=== PATIENT | female | born 1990 | race Caucasian/White ===

== ENCOUNTER 2023-10-19 15:29 | Outpatient (CLI) | payer OTHER, SELFPAY ==
[2023-10-19 14:40] LABS: Abs Immature Grans 0.01 10^3/uL (0.0-0.06); Absolute Basophil Count 0.03 10^3/uL (0.0-0.2); Absolute Eosinophil Count 0.01 10^3/uL (0.0-0.7); Absolute Lymphocyte Count 1.54 10^3/uL (1.2-3.4); Absolute Monocyte Count 0.47 10^3/uL (0.1-0.8); Basophils % 0.5 %; Eosinophils % 0.2 %; HCT 42.2 % (36.0-46.0); HGB 15.2 g/dL (11.2-15.7); Immature Grans % 0.2 %; Lymphocytes % 26.7 %; MCH 34.4 pg (27.0-33.0); MCV 96 fL (80-95); MPV 9.3 fL (8.0-11.0); Monocytes % 8.2 %; Neutrophils % 64.2 %; Platelet Count 249 10^3/uL (130-400); RBC 4.42 10^6/uL (3.93-5.22); RDW 11.2 % (11.7-14.6); RDW-SD 39.5 fL; WBC 5.76 10^3/uL (4.4-10.8)
[2023-10-19 14:49] LABS: Prothrombin Time 10.3 sec (9.1-11.1)
[2023-10-19 14:58] LABS: ALT 36 U/L (14-59); AST 22 U/L (15-37); Albumin 4.1 g/dL (3.4-5.0); Alkaline Phosphatase 79 U/L (46-116); Anion Gap 5.5 mmol/L (3-11); BUN 9 mg/dL (7-18); Bilirubin, Total 0.66 mg/dL (0.2-1.0); CO2 29.5 mmol/L (21.0-32.0); CREATININE 0.7 mg/dL (0.55-1.02); Calcium 9.3 mg/dL (8.5-10.1); Chloride 101 mmol/L (98-107); Estimated GFR 116.31 (mL/min/1.73m2); Glucose 97 mg/dL (74-106); Potassium 4.2 mmol/L (3.5-5.1); Sodium 136 mmol/L (136-145); Total Protein 7.5 g/dL (6.4-8.2)
--- OUTSIDE RECORDS SUMMARY | 2023-10-19 15:32 | XMS_ITS | Encounter Summary ---
Author Organization [facility] Address [address] [place] [address] Care Team Providers Care Mobile Lab Technician Name Role Phone Galilea Mars TOOL SETTER Primary Care Provider [phone] Encounter Details Date Type Department Care Team (Late st Contact Info) Description 10/07/2023 Orders Only [facility] - [place] [address] [place] [address] Galilea Mars, TOOL SETTER [address] [place] [address] Pre-op exam (Primary Dx); Lumbosacral radiculopathy at L4; Lumbosacral radiculopathy at L5 Social History Tobacco Use Types Packs/Day Years Used Date Smoking Tobacco: Never Smokeless Tobacco: Never Alcohol Use Standard Drinks/Week Comments Yes 0 (1 standard drink = 0.6 oz pur e alcohol) socially Humiliation, Afraid, Rape, and Kick questionnair e Answer Date Recorded Within the last year, have y ou been afraid of your partner or ex-partner? No 07/02/2020 Within the last year, have y ou been humiliated or emotionally abused in other ways by your partner or ex-partner? No Within the last year, have y ou been kicked, hit, slapped, or otherwise physically hurt by your partner or ex-partner? No 07/02/2020 Within the last year, have y ou been raped or forced to have any kind of sexual activity by your partner or ex-partner? No 07/02/2020 AUDIT-C Answer Date Recorded Frequency of Alcohol Consumption 2-3 times a wee k 06/19/2020 Average Number of Drinks 1 or 2 021 Frequency of Binge Drinking Less than monthly Overall Financial Resource Strain (CARDIA) Answe r Date Recorded How hard is it for you to pa y for the very basics like food, housing, medical care, and heating? Not hard at all 06/21/2022 PHQ-2 Answer Date Recorded PHQ-2 SUBTOTAL 2 06/21/2022 Exercise Vital Sign Answer Date Recorde d On average, how many days pe r week do you engage in moderate to strenuous exercise (like a brisk walk)? 7 days 07/02/2020 On average, how many minutes do you engage in exercise at this level? 60 min 07/02/2020 Hunger Vital Sign Answer Date Recorded Within the past 12 months, y ou worried that your food would run out before you got the money to buy more. Never true 06/22/19 23 Within the past 12 months, t he food you bought just didn't last and you didn't have money to get more. Never true 06/21/2022 PRAPARE - Transportation Answer Date Re corded In the past 12 months, has l ack of transportation kept you from medical appointments or from getting medications? No 11/2022 In the past 12 months, has l ack of transportation kept you from meetings, work, or from getting things needed for daily living? No 06/21/2022 Housing Stability Vital Sign Answer Kameron e Recorded Unable to Pay for Housing in the Last Year Not o n file 06/21/2022 In the last 12 months, how many places have you lived? 1 06/21/2022 In the last 12 months, was t here a time when you did not have a steady place to sleep or slept in a penitentiary (including now)? No 06/21/2022 Interpersonal Safety Answer Date Record ed How often does anyone, inclu ding family, hit, punch or physically hurt you? Never 06/21/2022 How often does anyone, inclu ding family, insult, scream, curse or threaten to hurt you? Never 06/21/2022 Education Answer Date Recorded What is the highest level of school you have completed or the highest degree you have received? Master's degree (e.g., MA, MS, Joanne, MEd, WARNING COORDINATION METEOROLOGIST, LILA) 06/19/2020 Sex and Gender Information Value Date Recorded Sex Assigned at Female 10/08/2022 13:26 EDT Gender Identity Female 07/29/2021 16:35 EDT Sexual Orientation Straight 10/08/2022 13 :26 EDT documented as of this encounter Functional Status Functional Status Response Date of Assess ment Because of a physical, menta l, or emotional condition, does this person have difficulty doing errands alone such as visiting a doctor's office or shopping? No 08/03/2023 Cognitive Status Response Date of Assessm ent Because of a physical, menta l, or emotional condition, does this person have serious difficulty concentrating, remembering, or making decisions? No 08/03/2023 documented as of this encounter Plan of Treatment Upcoming Encounters Date Type Department Care Team (Late st Contact Info) Description 10/22/2023 13:25 EDT Hospital Encounter [facility] [place] [address] [place] [address] [phone] Walker Pride MD [address] [place] [address] [address] [place] [phone] 10/22/2023 13:25 EDT - 10/22/2023 17:00 EDT Surgery [facility] OR [address] [place] [address] [phone] Walker Pride MD [address] [place] [phone] Left L34 decompression, redo left L45 decompression [22284 (CPT??)] 11/22/2023 10:00 EDT Post-op Visit [facility] Neurosurgery - [address] [place] [address] [place] [address] Madiha Hurtado NP [address] [facility], [address] [place] [phone] Scheduled Orders Name Type Priority Associated Diagnoses Orde r Schedule COMPLETE BLOOD COUNT Lab Routine Pre-op exam Lumbosacral radiculopathy at L4 Lumbosacral radiculopathy at L5 Expected: 10/07/2023 (Approximate), Expires: 01/05/2024 BASIC METABOLIC PANEL (BMP) Lab Routine Pre-op exam Lumbosacral radiculopathy at L4 Lumbosacral radiculopathy at L5 Expected: 10/07/2023 (Approximate), Expires: 01/05/2024 Scheduled Procedures Name Priority Associated Diagnoses Date/Ti me LAMINECTOMY, SPINE, LUMBAR, 1 LEVEL, WITH FORAMINOTOMY OR FACETECTOMY Lumbar radiculopathy 10/22/2023 13:25 EDT LAMINECTOMY, SPINE, WITH FACETECTOMY AND FORAMINOTOMY, ADDITIONAL LEVEL FOLLOWING INITIAL LEVEL Lumbar radiculopathy 10/22/2023 13:25 EDT documented as of this encounter Visit Diagnoses Diagnosis Lumbar radiculopathy- Primary Thoracic or lumbosacral neuritis or radiculitis, unspecified Pre-op exam- Primary Preoperative examination, unspecified Lumbosacral radiculopathy at L4 Thoracic or lumbosacral neuritis or radiculitis, unspecified Lumbosacral radiculopathy at L5 Thoracic or lumbosacral neuritis or radiculitis, unspecified Lumbar radiculopathy Thoracic or lumbosacral neuritis or radiculitis, unspecified documented in this encounter Care Teams Mobile Lab Technician Relationship Specialty Start Date End Date Galilea Mars NP [address] [place] [phone] PCP - General 09/16/21 documented as of this encounter
--- OUTSIDE RECORDS SUMMARY | 2023-10-19 15:32 | XMS_ITS | Encounter Summary ---
Author Organization [facility] Address [address] [place] [address] Care Team Providers Care Core Loader Name Role Phone Galilea Mars TECHNICAL EXPERT Primary Care Provider [phone] Reason for Visit * Reason Comments Pre-op Exam Back surgery L4-L5 w ith Dr Pride on 10/22/23 Encounter Details Date Type Department Care Team (Latest Contact Info) Description 10/04/2023 15:00 EDT Office Visit [facility] Adult Primary Care - [place] [address] [place] [address] Galilea Mars, TECHNICAL EXPERT [address] [place] [address] Pre-op exam (Primary Dx); Lumbosacral [...] place to sleep or slept in a skilled nursing (including now)? No 06/21/2022 Interpersonal Safety Answer Date Record ed How often does anyone, jason sanchez family, hit, punch or physically hurt you? Never 06/21/2022 How often does anyone, jason sanchez family, insult, scream, curse or threaten to hurt you? Never 06/21/2022 Education Answer Date Recorded What is the highest level of school you have completed or the highest degree you have received? Master's degree (e.g., MA, MS, Joanne, MEd, FACILITY MAINTENANCE HELPER, LILA) 06/19/2020 Sex and Gender Information Value Date Recorded Sex Assigned at Female 10/08/2022 13:26 EDT Gender Identity Female 07/29/2021 16:35 EDT Sexual Orientation Straight 10/08/2022 13 :26 EDT documented as of this encounter Last Filed Vital Signs Vital Sign Reading Time Taken Comments Blood Pressure 116/68 10/04/2023 1502 EDT Pulse 80 10/04/2023 1502 EDT Temperature 35.9 ??C (96.7 ??F) 10/04/2023 1502 EDT Respiratory Rate 10 10/04/2023 1502 EDT Oxygen Saturation - - Inhaled Oxygen Concentration - - Weight 74.7 kg (164 lb 9.6 oz) 10/04/2023 1502 E DT Height 163.9 cm (5' 4.53) 10/04/2023 1502 EDT Body Mass Index 27.79 10/04/2023 1502 EDT documented in this encounter Functional Status Functional Status Response [...] No 08/03/2023 documented as of this encounter Patient Instructions * Patient Instructions* Galilea Mars, TECHNICAL EXPERT - 10/04/2023 15:00 EDT GENERAL PREOP INSTRUCTIONS: Proceed with surgery as planned. No food or liquids the morning of surgery. Call surgeon if develops respiratory illness, fever, or other illness. Take the following medications the morning of surgery with a sip of water - sertraline and gabapentin. Vitamins - hold 1 week prior to procedure. documented in this encounter Progress Notes * Galilea Mars NP - 10/04/2023 1500 EDT Primary Care Preoperative Note Planned Procedure: Left L34 decompression, redo left L45 decompression Surgeon: Dr Pride Planned Procedure Date: 10/22/23 Jonas Lange is a 33 y.o. female presenting for pre-op. HPI The patient is scheduled for an L34 decompression surgery. The patient has been experiencing persistent foot drop and leg weakness, which has not significantly changed in function or intensity. The patient's previous MRI was open, but the surgeon requested a closed MRI, which delayed the process. The patient reports she was prescribed oxycodone following her last surgery, she reports that she didn't like that drop in mood from it and is requesting other options. Revised Cardiac Risk Index (RCRI): Class I Cardiovascular / pulmonary risk factors: none Prior history of anesthetic complications: no Prior history of bleeding problems: no Prior history of DVT/PE: no Family history of anesthetic complications, bleeding problems or DVT/PE: no. Support post-op: Functional capacity: (ACC/AHA recommends no further testing for patients with = 4 METs - equivalentof walking up 2 flights of stairs or a hill) This patient has a capacity of = 4 Mets - Yes Advanced Directive: Recommend completing. Relevant ROS: Review of Systems Constitutional: Negative for chills, fever, malaise/fatigue and weight loss. Respiratory: Negative for cough, shortness of breath and wheezing. Cardiovascular: Negative for chest pain, palpitations and leg swelling. Gastrointestinal: Negative for abdominal pain, blood in stool, constipation, diarrhea, heartburn, nausea and vomiting. Skin: Negative for rash. Neurological: Negative for dizziness, tremors, weakness and headaches. Current Outpatient Medications on File Prior to Visit Medication Sig Dispense Refill acetaminophen (TYLENOL) 500 mg tablet Take 2 Tablets by mouth every 6 hours as needed for Pain. cyanocobalamin (VITAMIN B-12) 500 mcg tablet Take 2 Tablets by mouth daily. gabapentin (NEURONTIN) 300 mg capsule Take 1 Capsule by mouth 2 times daily. 180 Capsule 1 levonorgestreL (MIRENA) 20 mcg/24 hours (8 yrs) 52 mg IUD 1 Each by intrauterine route Once. 2016 Multivitamins with Minerals tablet tablet Take 1 Tablet by mouth daily. sertraline (ZOLOFT) 100 mg tablet Take 1 Tablet by mouth daily. 90 Tablet 3 No current facility-administered medications on file prior to visit. Social History Tobacco Use Smoking status: Never Smokeless tobacco: Never Substance Use Topics Alcohol use: Yes Comment: socially Drug use: No No Known Allergies Past Medical History: Diagnosis Date Activity, other involving cardiorespiratory exercise 09-03-21 prior to the injury the pt was running 2 miles a day Back pain 08-27-21 left-sided low back pain with radiculopathy. Bradycardia 08-27-21- pt staes she has a lower HR than most Exercise involving housework 08-27-21 tries is Migraine with aura, not intractable Past Surgical History: Procedure Laterality Date LUMBAR DISCECTOMY WISDOM TOOTH EXTRACTION Data reviewed this visit: problem list/past medical history, current medications, allergies, and EKG from today Objective BP 116/68 (BP Cuff Location: Left arm, BP Patient Position: Sitting, BP Cuff Sizes: Adult, regular) Pulse 80 Temp 35.9 ??C (96.7 ??F) (Tympanic) Resp 10 Ht 163.9 cm (64.53) Wt 74.7 kg (164lb 9.6 oz) BMI 27.79 kg/m?? General: Alert, cooperative, no acute distress. Appears non-toxic. Well developed, hydrated and nourished. Appears stated age. Head: Normocephalic, atraumatic. Eyes: Conjunctivae are clear without exudates or hemorrhage. Sclera is non- icteric. EOMs intact, PERRL. Eyelids are normal in appearance without swelling or lesions. Mouth: No oral lesions. Normal dentition. Mallampati 1 Neck: Supple, symmetrical, trachea midline, no adenopathy, thyroid: no enlargement, tenderness or nodules. Lungs: No signs of respiratory distress. Lung sounds are clear in all lobes bilaterally without rales, ronchi, or wheezes. Heart: Heart rate and rhythm are normal. No murmurs, gallops, or rubs are auscultated. S1 and S2 are heard and are of normal intensity. Abdomen: Abdomen is soft and non-tender without distention. Bowel sounds are normoactive. No masses, hepatomegaly, or splenomegaly are noted. Extremities: Extremities atraumatic, no edema. Musculoskeletal: No joint swelling, effusion or redness. Moves all four extremities - left sided foot drop. Antalgic gait. Pulses: 2+ and symmetric all extremities. Skin: Warm, dry, intact. Skin color, texture, turgor normal. No rashes or suspicious lesions. Neurologic: The patient is awake, alert and oriented X 3. CNII-XII intact. No tremors. Psychiatric: Appropriate mood and affect. Cooperative. Assessment & Plan Sarah Lange is a 33 y.o. female who is at low risk for cardiac complications from the schedule medium risk surgery. No contraindications to planned surgery Preop Orders and Medication Management EKG performed today: NSR GENERAL PREOP INSTRUCTIONS: Proceed with surgery as planned. No food or liquids the morning of surgery. Call surgeon if develops respiratory illness, fever, or other illness. Take the following medications the morning of surgery with a sip of water - sertraline and gabapentin. Vitamins - hold 1 week prior to procedure. Pain Management: Previous negative experience with Oxycodone post-surgery. -Discussed INTELLIGENCE AGENT depressant nature of opioids. This low mood may occur with others in the same drug class. -Discuss alternative pain management options with the surgical team, including Tramadol or Hydrocodone. -Consider Tylenol for pain management after the initial post-operative period. Sarah was seen today for pre-op exam. Diagnoses and all orders for this visit: Pre-op exam Lumbosacral radiculopathy at L4 Lumbosacral radiculopathy at L5 - EKG 12-LEAD; Future - COMPREHENSIVE METABOLIC PANEL (CMP); Future - PROTIME; Future - COMPLETE BLOOD COUNT AND DIFFERENTIAL; Future I discussed with Sarah Lange the use of this audio recording tool to create a clinical note. I explained the benefits of the technology, such as time savings and a better patient experience. I explained that the recording will be confidential and converted into a written note which I will review and edit as needed before it is saved in the medical record. The patient expressed an understanding of the use of this technology for clinical documentation and agreed to allow its use for this encounter. documented in this encounter Plan of Treatment Upcoming Encounters Date Type Department Care Team (Late st Contact Info) Description 10/22/2023 13:25 EDT Hospital Encounter [facility] OR [address] [place] [address] [phone] Walker Pride MD [address] [place] [phone] 10/22/2023 13:25 EDT - 10/22/2023 17:00 EDT Surgery [facility] OR [address] [place] [address] [phone] Walker Pride MD [address] [place] [phone] Left L34 decompression, redo left L45 decompression [[id number] (CPT??)] 11/22/2023 10:00 EDT Post-op Visit [facility] Neurosurgery - [address] [phone] Madiha Hurtado NP [address] [place] [phone] Scheduled Orders Name Type Priority Associated Diagnoses Orde r Schedule COMPREHENSIVE METABOLIC PANEL (CMP) Lab Routine Pre-op exam Lumbosacral radiculopathy at L4 Lumbosacral radiculopathy at L5 Expected: 10/04/2023 (Approximate), Expires: 01/02/2024 PROTIME Lab Routine Pre-op exam Lumbosacral radiculopathy at L4 Lumbosacral radiculopathy at L5 Expected: 10/04/2023 (Approximate), Expires: 01/02/2024 COMPLETE BLOOD COUNT AND DIFFERENTIAL Lab Routine Pre-op exam Lumbosacral radiculopathy at L4 Lumbosacral radiculopathy at L5 Expected: 10/04/2023 (Approximate), Expires: 01/02/2024 Scheduled Procedures Name Priority Associated Diagnoses Date/Ti me LAMINECTOMY, SPINE, LUMBAR, 1 LEVEL, WITH FORAMINOTOMY OR FACETECTOMY Lumbar radiculopathy 10/22/2023 13:25 EDT LAMINECTOMY, SPINE, WITH FACETECTOMY AND FORAMINOTOMY, ADDITIONAL LEVEL FOLLOWING INITIAL LEVEL Lumbar radiculopathy 10/22/2023 13:25 EDT documented as of this encounter Procedures Procedure Name Priority Date/Time Associated Diagnosis Comments ECG REPORT - SCANNED 10/05/2023 13:33 EDT ECG REPORT - SCANNED 10/04/2023 15:36 EDT EKG 12-LEAD Routine 10/04/2023 15:14 EDT Pre-op exam documented in this encounter Results * ECG REPORT - SCANNED (10/05/2023 13:33 EDT) 10/05/2023 13:3 3 EDT Scan 2 Cooker Meal PROCEDURE/MINOR JUDY GICAL ORDERABLES * ECG REPORT - SCANNED (10/04/2023 15:36 EDT) 10/04/2023 15:3 6 EDT Scan 2 Cooker Meal PROCEDURE/MINOR JUDY GICAL ORDERABLES * EKG 12-LEAD (10/04/2023 15:14 EDT) 10/04/2023 15:1 4 EDT Narrative [facility] EKG - 10/04/2023 15:25 EDT ? PC Site ? Test Date: ?2023-10-04 Pat Name: ? SARAH LANGE ?Department: ?? [facility] ? Room: ? Gender: ? Female ? Barber Apprentice: ?? : ?1990 ? Requested By: SNOW GALILEA L Order Number: [id number] ? Reading MD: ?? GALILEA SNOW TECHNICAL EXPERT ? Measurements Intervals ?[place] ? Rate: ? 63 ? P: ?56 TX: ? 131 ?QRS: ?61 QRSD: ? 93 ? T: ?29 QT: ? 435 ? QTc: ?449 ? Interpretive Statements SINUS RHYTHM I reviewed the tracing and have either agreed or edited the findings in this report. Electronically Signed On 10-04-2023 15:25:00 EDT by GALILEA MARS NP. Procedure Note Galilea Mars NP - 10/04/2023 Site Test Date: 2023-10-04 Pat Name: SARAH LANGE Department: [facility] Room: Gender: Female Barber Apprentice: : 1990 Requested By: ELSA Dubois Order Number: [id number] Reading MD: GALILEA MARS NP Measurements Intervals [place] Rate: 63 P: 56 TX: 131 QRS: 61 QRSD: 93 T: 29 QT: 435 QTc: 449 Interpretive Statements SINUS RHYTHM I reviewed the tracing and have either agreed or edited the findings inthis report. Electronically Signed On 10-04-2023 15:25:00 EDT by GALILEA BAGLEY. Galilea Mars NP CARDIAC ECG ORDERABL ES [facility] EKG documented in this encounter Visit Diagnoses Diagnosis Lumbar radiculopathy- Primary Thoracic or lumbosacral neuritis or radiculitis, unspecified Pre-op exam- Primary Preoperative examination, unspecified Lumbosacral radiculopathy at L4 Thoracic or lumbosacral neuritis or radiculitis, unspecified Lumbosacral radiculopathy at L5 Thoracic or lumbosacral neuritis or radiculitis, unspecified Lumbar radiculopathy Thoracic or lumbosacral neuritis or radiculitis, unspecified documented in this encounter Care Teams Core Loader Relationship Specialty Start Date End Date Galilea Mars NP [address] [place] [phone] PCP - General 09/16/21 documented as of this encounter
--- OUTSIDE RECORDS SUMMARY | 2023-10-19 15:32 | XMS_ITS | Encounter Summary ---
Author Organization [facility] Address [address] [place] [address] Care Team Providers Care Trucker Hand Name Role Phone Galilea Mars PUNCHBOARD ASSEMBLER Primary Care Provider [phone] Reason for Visit * Reason Onset Date Comments Pre-visit Orders 09/23/2023 Encounter Details Date Type Department Care Team (Late st Contact Info) Description 09/23/2023 Telephone [facility] Adult Primary Care - [place] [address] [place] [address] Galilea Mars, PUNCHBOARD ASSEMBLER [address] [place] [phone] Pre-visit Orders Social History Tobacco Use Types Packs/Day Years [...] place to sleep or slept in a intermediate (including now)? No 06/21/2022 Interpersonal Safety Answer [...] Master's degree (e.g., MA, MS, Joanne, MEd, CERTIFIED FIRST ASSISTANT, LILA) 06/19/2020 Sex and Gender Information Value [...] No 08/03/2023 documented as of this encounter Miscellaneous Notes * Telephone Encounter - Gudelia Ye - 09/23/2023 1201 EDT Surgeon sent fax with a listing of requirements for pt pre-op visit No preop has been scheduled yet. Put form in CCA/BRIDGE SAW OPERATOR basket documented in this encounter Plan of Treatment Upcoming Encounters Date Type Department Care Team (Late st Contact Info) Description 10/22/2023 13:25 EDT Hospital Encounter [facility] OR [address] [place] [address] [phone] Walker Pride MD [address] [place] [address], [address] [place] [phone] 10/22/2023 13:25 EDT - 10/22/2023 17:00 EDT Surgery [facility] [place] [address] [place] [address] [phone] Walker Pride MD [address] [facility], [address] [place] [phone] Left L34 decompression, redo left L45 decompression [[id number] (CPT??)] 11/22/2023 10:00 EDT Post-op Visit [facility] Neurosurgery - [facility] [address] [place] [address] Madiha Hurtado NP [address] [facility], [address] [place] [phone] Scheduled Procedures Name Priority Associated Diagnoses Date/Ti me LAMINECTOMY, SPINE, LUMBAR, 1 LEVEL, WITH FORAMINOTOMY OR FACETECTOMY Lumbar radiculopathy 10/22/2023 13:25 EDT LAMINECTOMY, SPINE, WITH FACETECTOMY AND FORAMINOTOMY, ADDITIONAL LEVEL FOLLOWING INITIAL LEVEL Lumbar radiculopathy 10/22/2023 13:25 EDT documented as of this encounter Visit Diagnoses Not on filedocumented in this encounter Care Teams Trucker Hand Relationship Specialty Start Date End Date Galilea Mars NP [address] [place] [phone] PCP - General 09/16/21 documented as of this encounter
--- OUTSIDE RECORDS SUMMARY | 2023-10-19 15:32 | XMS_ITS | Referral Summary ---
Author Organization [facility] Address [address] [place] [address] Care Team Providers Care Chief Embalmer Name Role Phone Galilea Mars GEOTECHNICAL DEPARTMENT MANAGER Primary Care Provider [phone] Encounters Date Type Department Care Team Description 10/15/2023 Telephone [facility] [address], [place] [phone] Walker Pride MD Labs Only (/) 10/07/2023 Orders Only [facility] - [place] [address] [place], [place] [phone] Galilea Mars, KARIME Pre-op exam (Primary Dx); Lumbosacral radiculopathy at L4; Lumbosacral radiculopathy at L5 10/06/2023 14:40 EDT - 10/06/2023 15:19 EDT Hospital Encounter [facility] Pre-Surgical Testing [address], [place] [phone] 10/04/2023 15:00 EDT Office Visit [facility] [place] [address] [place], [place] [phone] Galilea Mars, KARIME Pre-op exam (Primary Dx); Lumbosacral radiculopathy at L4; Lumbosacral radiculopathy at L5 09/23/2023 Telephone [facility] [place] [address] [place], [place] [address] Galilea Mars, GEOTECHNICAL DEPARTMENT MANAGER Pre-visit Orders 09/21/[address] [phone] Walker Pride MD Discuss Surgery (/) 09/15/2023 8:20 EDT Office Visit [address] [phone] Walker Pride MD Lumbar radiculopathy (Primary Dx) 09/07/[address] [phone] Walker Pride MD Appointment Related 09/07/2023 9:20 EDT - 09/07/2023 23:59 EDT Hospital Encounter [address] [facility] [address] [place] [address] Foot drop, left Discharge Disposition: Home or Self Care 09/06/2023 Refill [facility] - [place] [address] [place] [address] Ian Mendez MD Medications Refill 08/18/2023 Refill [facility] [place] [address] [place] [address] Galilea Mars, GEOTECHNICAL DEPARTMENT MANAGER Medications Refill 08/05/2023 Telephone [facility] Neurosurgery [address] [phone] Walker Pride MD Appointment Related 08/03/2023 Orders Only [facility] Radiology [address] [phone] Jesus Glover MD 08/03/2023 11:10 EDT - 08/03/2023 23:59 EDT Hospital Encounter [address] Xray [address] [place] [address] Lumbar radiculopathy Discharge Disposition: Home or Self Care 08/03/2023 11:30 EDT Office Visit [facility] - [place] [address] [facility] [address] [place], [place] [phone] Walker Pride MD Foot drop, left (Primary Dx) 07/19/2023 Orders Only [facility] - [facility] [place] [address] [place] [address] Madiha Hurtado NP Lumbar radiculopathy (Primary Dx) 07/19/2023 Orders Only [facility] - [place] [address] [place], [place] [address] Galilea Mars NP DDD (degenerative disc disease), lumbar (Primary Dx) 07/19/2023 Telephone [facility] - [place] [address] [facility] [place] [address] Galilea Mars NP Results from Last 3 Months Allergies Active Allergy Reactions Criticality Noted Date Comments Nickel Rash 10/06/2023 Medications Medication Sig Dispensed Refills Start Date End Date Status Multivitamins with Minerals tablet tablet Take 1 Tablet by mouth daily. Active levonorgestreL (MIRENA) 20 mcg/24 hours (8 yrs) 52 mg IUD 1 Each by intrauterine route Once. 2016 Active acetaminophen (TYLENOL) 500 mg tablet Take 2 Tablets by mouth every 6 hours as needed for Pain. 09/03/2021 Active cyanocobalamin (VITAMIN B-12) 500 mcg tablet Take 2 Tablets by mouth daily. Active sertraline (ZOLOFT) 100 mg tablet Take 1 Tablet by mouth daily. 90 Tablet 3 11/05/2022 Active gabapentin (NEURONTIN) 300 mg capsule Take 1 Capsule by mouth 2 times daily. 180 Capsule 1 08/19/2023 Active ibuprofen (MOTRIN) 200 mg tablet Take 2 Tablets by mouth every 6 hours as needed for Pain. Active calcium carbonate (TUMS) 200 mg calcium (500 mg) tablet,chewable Take 1 Tablet by mouth as needed for Heartburn. Active Active Problems Patient Care Coordination No te Formatting of this note is d ifferent from the original. The concept of ? Telemedicine? has been described to the patient.? Patient has been informed of the anticipated benefits and possible risks.? Patient understands the information provided regarding telemedicine, has had the opportunity to ask questions about this information, and all questions have been answered to patient? s satisfaction. Patient consents for the use of telemedicine in his/her medical care and authorizes the transmission of any relevant medical information to providers and their staff involved in patient? s medical or mental health care. 2021-Verified NON-ACO [place] Medicaid TCN:[id number] Filippo Lozano 08/13/2021 13:25 Confirmed with patient to follow up with Medicaid as they are showing primary payor, but pt insists no other insurance to bill, just Medicaid. Please delete note when n/a Filippo Lozano 08/13/2021 13:31 Problem Noted Date Diagnosed Date Lumbar radiculopathy 09/15/2023 Lumbosacral radiculopathy at L5 08/08/2021 Overview: Added automatically from request for surgery [id number] L4-L5 disc bulge 02/16/2021 Overview: 06/03/21: L4-L5 epidural steroid injection 03/24/2021: LTFESI L5 [facility] [place] Migraine with aura and witho ut status migrainosus, not intractable 08/21/2020 Obsessive-compulsive disorder 09/08/2012 Constipation by delayed colonic transit 06/29/19 10 Contraceptive management 06/25/2009 Immunizations Name Administration Dates Next Due Covid-19 mRNA Vaccine (PFIZE R COVID-19) PF 0.3 ml IM (12 yrs+) 08/02/2020,07/12/2020 Covid-19 mRNA, ajith Ready to Use Vaccine (PFIZER READY TO USE COVID-19) PF 0.3 mL IM (12 yrs+) 02/18/2021 Covid-19 mRNA-LNP Bivalent V accine (PFIZER BIVALENT VACCINE) PF 0.3 mL IM (12 yrs+) 07/03/2022 Influenza (split) 01/13/2007 Influenza Vaccine =>3yo Split Preservative Free IM 01/08/2010 Influenza Vaccine Quad (AFLURIA) PF 0.5 ml IM (3 yrs+) 02/01/2015 Influenza Vaccine Quad PF 0.5 ml IM (6 mos+) Meningococcal Conjugate (MCV 4) Vaccine (MENACTRA) 4-Valent IM 07/12/2007 Tdap Vaccine =>7YO IM 07/03/2022 Tetanus Vaccine IM, Historical 05/16/2003 Social History Tobacco Use Types Packs/Day Years Used Date Smoking Tobacco: Never Smokeless Tobacco: Never Tobacco Cessation:Counseling Given: Not Answered Alcohol Use Standard Drinks/Week Comments Yes 0 [...] place to sleep or slept in a chcf (including now)? No 06/21/2022 Interpersonal Safety Answer Date Record ed How often does anyone, inclu daniel family, hit, punch or physically hurt you? Never 06/21/2022 How often does anyone, inclu daniel family, insult, scream, curse or threaten to hurt you? Never 06/21/2022 Education Answer Date Recorded What is the highest level of school you have completed or the highest degree you have received? Master's degree (e.g., MA, MS, Joanne, MEd, FOREIGN SERVICE TEACHER, LILA) 06/19/2020 Sex and Gender Information Value Date Recorded Sex Assigned at Female 10/08/2022 13:26 EDT Gender Identity Female 07/29/2021 16:35 EDT Sexual Orientation Straight 10/08/2022 13 :26 EDT Last Filed Vital Signs Vital Sign Reading Time Taken Comments Blood Pressure 116/68 10/04/2023 1502 EDT Pulse 80 10/04/2023 1502 EDT Temperature 35.9 ??C (96.7 ??F) 10/04/2023 1502 EDT Respiratory Rate 10 10/04/2023 1502 EDT Oxygen Saturation 99% 10/15/2022 1103 EDT Inhaled Oxygen Concentration - - Weight 74.4 kg (164 lb) 10/06/2023 1501 EDT Height 163.8 cm (5' 4.5) 10/06/2023 1501 EDT Body Mass Index 27.72 10/06/2023 1501 EDT Functional Status Functional Status Response Date of [...] concentrating, remembering, or making decisions? No 08/03/2023 Plan of Treatment Upcoming Encounters Date Type Department Care Team (Late st Contact Info) Description 10/22/2023 13:25 EDT Hospital Encounter [facility] OR [address] [place] [phone] Walker Pride MD [address] [place] [phone] 10/22/2023 13:25 EDT - 10/22/2023 17:00 EDT Surgery [facility] OR [address] [place] [phone] Walker Pride MD [address] [place] [phone] Left L34 decompression, redo left L45 decompression [[id number] (CPT??)] 11/22/2023 10:00 EDT Post-op Visit [facility] Neurosurgery - [address] [phone] Madiha Hurtado NP [address] [place] [address] [address] [place] [phone] Scheduled Procedures Name Priority Associated Diagnoses Date/Ti me LAMINECTOMY, SPINE, LUMBAR, 1 LEVEL, WITH FORAMINOTOMY OR FACETECTOMY Lumbar radiculopathy 10/22/2023 13:25 EDT LAMINECTOMY, SPINE, WITH FACETECTOMY AND FORAMINOTOMY, ADDITIONAL LEVEL FOLLOWING INITIAL LEVEL Lumbar radiculopathy 10/22/2023 13:25 EDT Procedures Procedure Name Priority Date/Time Associated Diagnosis Comments ECG REPORT - SCANNED 10/05/2023 13:33 EDT ECG REPORT - SCANNED 10/04/2023 15:36 EDT EKG 12-LEAD Routine 10/04/2023 15:14 EDT Pre-op exam MR LUMBAR SPINE W WO CONTRAST Routine 09/07/2023 10:19 EDT Foot drop, left XR LUMBAR SPINE 4+ VIEWS Routine 08/03/2023 11:22 EDT Lumbar radiculopathy PAP TEST Routine 07/02/2020 17:13 EDT Cervical cancer screening HEPATITIS C AB W REFLEX TO HCV RNA BY PCR Routine 12/08/2009 21:10 EDT from Last 3 Months or Most Recently Relevant to Health Maintenance Results * ECG REPORT - SCANNED (10/05/2023 13:33 EDT) 10/05/2023 13:3 3 EDT Scan 2 Tea Leaf Reader PROCEDURE/MINOR JUDY GICAL ORDERABLES * ECG REPORT - SCANNED (10/04/2023 15:36 EDT) 10/04/2023 15:3 6 EDT Scan 2 Tea Leaf Reader PROCEDURE/MINOR JUDY GICAL ORDERABLES * EKG 12-LEAD (10/04/2023 15:14 EDT) 10/04/2023 15:1 4 EDT Narrative [facility] EKG - 10/04/2023 15:25 EDT ? PC Site ? Test Date: ?2023-10-04 Pat Name: ? TERI LANGE ?Department: ?? [facility] ? Room: ? Gender: ? Female ? Auxiliary Equipment Operator: ?? : ?1990 ? Requested By: SNOW GALILEA L Order Number: [id number] ? Reading MD: ?? GALILEA SNOW GEOTECHNICAL DEPARTMENT MANAGER ? Measurements Intervals ?[place] ? Rate: ? 63 ? P: ?56 ME: ? 131 ?QRS: ?61 QRSD: ? 93 ? T: ?29 QT: ? 435 ? QTc: ?449 ? Interpretive Statements SINUS RHYTHM I reviewed the tracing and have either agreed or edited the findings in this report. Electronically Signed On 10-04-2023 15:25:00 EDT by GALILEA MARS NP. Procedure Note Galilea Mars NP - 10/04/2023 Site Test Date: 2023-10-04 Pat Name: TERI LANGE Department: [facility] Room: Gender: Female Auxiliary Equipment Operator: : 1990 Requested By: ELSA Dubois Order Number: [id number] Reading MD: GALILEA MARS NP Measurements Intervals [place] Rate: 63 P: 56 ME: 131 QRS: 61 QRSD: 93 T: 29 QT: 435 QTc: 449 Interpretive Statements SINUS RHYTHM I reviewed the tracing and have either agreed or edited the findings inthis report. Electronically Signed On 10-04-2023 15:25:00 EDT by GALILEA BAGLEY. Galilea Mars NP CARDIAC ECG ORDERABL ES [facility] EKG * MR LUMBAR SPINE W WO CONTRAST (09/07/2023 10:19 EDT) Anatomical Region Laterality Modality Spine Magnetic Resonan ce 09/07/2023 15:0 3 EDT Impressions 09/07/2023 15:03 EDT L4-L5 disc bulge with tiny annular fissure and minor spinal canal stenosis and mild bilateral neural foraminal narrowings with flattening/compression of the exiting right and encroachment of exiting left L4 nerve roots. [id number] Narrative 09/07/2023 15:03 EDT EXAM: MRI LUMBAR SPINE WO/W CONTRAST HISTORY: left foot drop;M21.372:Foot drop, left TECHNIQUE: MRI of the lumbar spine without and with intravenous gadolinium contrast. Structured report code: [id number] COMPARISON: Lumbar spine radiographs dated 08/03/2023 and lumbar spine MRI dated 07/16/2023. FINDINGS: SURGICAL CHANGES: None. ALIGNMENT: Straightening of lumbar spine lordosis. BONES: No significant vertebral body height loss. No concerning lesions. Patchy foci of fatty replacement mainly involving sacroiliac bones. INTERVERTEBRAL DISCS: L4-L5 disc desiccation and bulge with tiny annular fissure. SPINAL CANAL: The conus terminates normally. No abnormality of the cauda equina. No fluid collections. ABNORMAL ENHANCEMENT: None. VISIBLE EXTRASPINAL SOFT TISSUES: Unremarkable. EVALUATION BY LEVEL: L1-L2, through L3-L4: No significant spinal canal stenosis or neural foraminal narrowings. L4-L5: Disc bulge with tiny annular fissure. Mild spinal canal stenosis. Mild bilateral neural foraminal narrowings with flattening/compression of right and encroachment of the left exiting L4 nerve roots. L5-S1: Shallow disc bulge. Expected tapering of the spinal canal. No significant neural foraminal narrowings. Resulting Agency Comment [id number] Procedure Note Jennifer Feliz MD - 09/07/2023 EXAM: MRI LUMBAR SPINE WO/W CONTRAST HISTORY: left foot drop;M21.372:Foot drop, left TECHNIQUE: MRI of the lumbar spine without and with intravenous gadoliniumcontrast. Structured report code: [id number] COMPARISON: Lumbar spine radiographs dated 08/03/2023 and lumbar spine MRIdated 07/16/2023. FINDINGS: SURGICAL CHANGES: None. ALIGNMENT: Straightening of lumbar spine lordosis. BONES: No significant vertebral body height loss. No concerning lesions. Patchy foci of fatty replacement mainly involving sacroiliac bones. INTERVERTEBRAL DISCS: L4-L5 disc desiccation and bulge with tiny annular fissure. SPINAL CANAL: The conus terminates normally. No abnormality of the cauda equina. Nofluid collections. ABNORMAL ENHANCEMENT: None. VISIBLE EXTRASPINAL SOFT TISSUES: Unremarkable. EVALUATION BY LEVEL: L1-L2, through L3-L4: No significant spinal canal stenosis or neuralforaminal narrowings. L4-L5: Disc bulge with tiny annular fissure. Mild spinal canal stenosis.Mild bilateral neural foraminal narrowings with flattening/compression ofright and encroachment of the left exiting L4 nerve roots. L5-S1: Shallow disc bulge. Expected tapering of the spinal canal. Nosignificant neural foraminal narrowings. IMPRESSION L4-L5 disc bulge with tiny annular fissure and minor spinal canal stenosisand mild bilateral neural foraminal narrowings with flattening/compressionof the exiting right and encroachment of exiting left L4 nerve roots. [id number] aWlker Pride MD [facility] MRI ORDERABLE S * XR LUMBAR SPINE 4+ VIEWS (08/03/2023 11:22 EDT) Anatomical Region Laterality Modality Computed Radiogr aphy 08/04/2023 10:5 2 EDT Impressions 08/04/2023 10:52 EDT Findings/Impression: Slight retrolisthesis at L3-4 no evidence of dynamic instability. Mild intervertebral disc height loss at L4-5 and L5-S1. No new vertebral body height loss. The included soft tissues are within normal limits. [id number] Narrative 08/04/2023 10:52 EDT XR LUMBAR SPINE 4+ VIEWS ??08/03/2023 11:10 AM Clinical History/Comments: lumbar radiculopathy;M54.16:Lumbar radiculopathy. Technique: 4 views of the lumbar spine Comparison: MRI 07/16/2023; radiograph 06/18/2022 Resulting Agency Comment [id number] Procedure Note Shahzad Way MD - 08/04/2023 XR LUMBAR SPINE 4+ VIEWS 08/03/2023 11:10 AM Clinical History/Comments: lumbar radiculopathy;M54.16:Lumbar radiculopathy. Technique: 4 views of the lumbar spine Comparison: MRI 07/16/2023; radiograph 06/18/2022 IMPRESSION Findings/Impression: Slight retrolisthesis at L3-4 no evidence of dynamic instability. Mildintervertebral disc height loss at L4-5 and L5-S1. No new vertebral bodyheight loss. The included soft tissues are within normal limits. [id number] Madiha Hurtado NP [facility] DIAGNOSTIC IMAGING ORDERABLES * PAP TEST (07/02/2020 17:13 EDT) Specimens A. Cervix and/or Endocervix , ThinPrep Imaging System with Manual Evaluation 07/08/2020 14:50 EDT [facility] Specimen Adequacy Satisfactory for Evaluation - transformation zone component present 07/08/2020 14:50 EDT [facility] General Categorization Negative for intraepithelial lesion or malignancy 07/08/2020 14:50 EDT [facility] Descriptive Diagnosis Fungal organisms present morphologically consistent with Ryann species. 07/08/2020 14:50 EDT [facility] Attestation . 07/08/2020 14:50 T [facility] at 1450 Clinical History cervical ca screening 07/08/2020 14:50 EDT [facility] HPV The result for the Human Papillomavirus (HPV) Detection-High Risk Types is Negative. No E6 or E7 mRNA is detected from HPV types 16,18,31,33,35,39 ,45,51,52,56,58,5 9,66, and 68 by restoration silversmith mediated amplification.Nicole ting was performed on specimen [id number] and was resulted on 07/08/2020 1427 EDT by KISHOR, LAB INSTRUMENT RESULTS IN 07/08/2020 14:50 EDT [facility] Performing Lab [facility] 07/08/2020 14:50 T [facility] Scanned Images 07/08/2020 14:50 EDT [facility] Papanicolaou smear specimen (specimen) CERVIX UTERI STRUCTURE / Unknown 07/02/2020 17:13 EDT 07/02/2020 17:13 EDT Bri Murphy PA-C PATHOLOGY ORDERABLES [facility] [address] [place] [address] * HEPATITIS C ANTIBODY (12/08/2009 21:10 EDT) Hepatitis C Ab Negative Reference Range: Negative [facility] 12/08/2009 21:1 0 EDT 12/08/2009 21:15 EDT [facility] S ORDERABLES [facility] [address] [place] [address] from Last 3 Months or Most Recently Relevant to Health Maintenance Advance Directives For more information, please contact: [phone] * Full Code (Latest Code Status on File) Date Activated Date Inactivated Comments 09/03/2021 11:39 09/03/2021 20:06 Question Answer Comments When the patient has NO PULSE: Full Code / CPR Who Made the Decision? Default/Not Discussed Care Teams Chief Embalmer Relationship Specialty Start Date End Date Galilea Mars, GEOTECHNICAL DEPARTMENT MANAGER [address] [place] [phone] PCP - General 09/16/21
--- OUTSIDE RECORDS SUMMARY | 2023-10-19 15:32 | XMS_ITS | Encounter Summary ---
Author Organization [facility] Address [address] [place] [address] Care Team Providers Care Temperature Control Inspector Name Role Phone Galilea Mars NP Primary Care Provider Reason for Visit * Reason Onset Date Comments Labs Only 10/15/2023 Encounter Details Date Type Department Care Team (Late st Contact Info) Description 10/15/2023 Telephone [facility] Neurosurgery - [facility] [address], [place] [phone] Walker Pride MD [address] [facility], [address] [place] [phone] Labs Only (/) Social History Tobacco Use Types Packs/Day Years [...] place to sleep or slept in a fdc (including now)? No 06/21/2022 Interpersonal Safety Answer [...] Master's degree (e.g., MA, MS, Joanne, MEd, PROPERTY PORTFOLIO OFFICER, LILA) 06/19/2020 Sex and Gender Information Value [...] encounter Miscellaneous Notes * Telephone Encounter - Dc Bryan RN - 10/19/2023 1136 EDT Patient called back asking about status of bloodwork. Called back, went to voicemail. If patient returns call on 10/18 please reach out to sports book writer on teams to transfer call. * Telephone Encounter - Jael Knight - 10/19/2023 0928 EDT Called and left a second message for Teri regarding the bloodwork that is needed prior to surgery on Wednesday. * Telephone Encounter - Jael Knight - 10/15/2023 0856 EDT Called and LM for Teri letting her know that she needs to have some bloodwork prior to surgery next Wednesday. This was not accomplished at her 10/03 pre-op physical despite documentation from the PCP'soffice that our pre-op checklist was received on 09/22. Asked Teri to give me a call to let me know where she would like to have the bloodwork done. documented in this encounter Plan of Treatment Upcoming Encounters Date Type Department Care Team (Late st Contact Info) Description 10/22/2023 13:25 EDT Hospital Encounter [facility] OR [address] [place] [phone] Walker Pride MD [address] [place] [phone] 10/22/2023 13:25 EDT - 10/22/2023 17:00 EDT Surgery [facility] OR [address] [place] [address] [phone] Walker Pride MD [address] [place] [phone] Left L34 decompression, redo left L45 decompression [[id number] (CPT??)] 11/22/2023 10:00 EDT Post-op Visit [facility] Neurosurgery - [address] [phone] Madiha Hurtado NP [address] [place] [phone] Scheduled Procedures Name Priority Associated Diagnoses Date/Ti me LAMINECTOMY, SPINE, LUMBAR, 1 LEVEL, WITH FORAMINOTOMY OR FACETECTOMY Lumbar radiculopathy 10/22/2023 13:25 EDT LAMINECTOMY, SPINE, WITH FACETECTOMY AND FORAMINOTOMY, ADDITIONAL LEVEL FOLLOWING INITIAL LEVEL Lumbar radiculopathy 10/22/2023 13:25 EDT documented as of this encounter Visit Diagnoses Not on filedocumented in this encounter Care Teams Temperature Control Inspector Relationship Specialty Start Date End Date Galilea Mars, MINING TEACHER [address] [place] [phone] PCP - General 09/16/21 documented as of this encounter
--- OUTSIDE RECORDS SUMMARY | 2023-10-19 15:32 | XMS_ITS | Clinical Summary ---
Author Organization [facility] Address [address] [place] [address] Care Team Providers Care Outreach Counselor Name Role Phone Galilea Mars NP Primary Care Provider [phone] Allergies Active Allergy Reactions Criticality Noted Date [...] mental health care. 2021-Verified NON-ACO [place] Medicaid TCN:[id number] Filippo Lozano 08/13/2021 13:25 Confirmed with patient to follow up with Medicaid as they are showing primary payor, but pt insists no other insurance to bill, just Medicaid. Please delete note when n/a Filippo Lozano 08/13/2021 13:31 Problem Noted Date Diagnosed Date Lumbar radiculopathy 09/15/2023 Lumbosacral radiculopathy at L5 08/08/2021 Overview: Added automatically from request for surgery [id number] L4-L5 disc bulge 02/16/2021 Overview: 06/03/21: L4-L5 epidural steroid injection 03/24/2021: LTFESI L5 left at [facility] Migraine with aura and witho ut status migrainosus, not intractable 08/21/2020 Obsessive-compulsive disorder 09/08/2012 Constipation by delayed colonic transit 06/29/19 10 Contraceptive management 06/25/2009 Encounters Date Type Department Care Team Description 10/15/2023 Telephone [facility] Neurosurgery - [facility] [address] [place] [address] Walker Pride MD Labs Only (/) 10/07/2023 Orders Only [facility] Adult Primary Care - [place] [address] [place], [place] [id number] Galilea Mars NP Pre-op exam (Primary Dx); Lumbosacral radiculopathy at L4; Lumbosacral radiculopathy at L5 10/06/2023 14:40 EDT - 10/06/2023 15:19 EDT Hospital Encounter [facility] Pre-Surgical Testing [address] [place] [address] 10/04/2023 15:00 EDT Office Visit [facility] Adult Primary Care - [place] [address] [place] [address] Galilea Mars NP Pre-op exam (Primary Dx); Lumbosacral radiculopathy at L4; Lumbosacral radiculopathy at L5 09/23/2023 Telephone [facility] Primary Care - [place] [address] [place] [address] Galilea Mars, COMPUTER SYSTEMS ADMINISTRATOR Pre-visit Orders 09/21/[address] [id number] Walker Pride MD Discuss Surgery (/) 09/15/2023 8:20 EDT Office Visit [address] [id number] Walker Pride MD Lumbar radiculopathy (Primary Dx) 09/07/2023 9:20 EDT - 09/07/2023 23:59 EDT Hospital Encounter [facility] [address] [facility] [place], [place] [id number] Foot drop, left Discharge Disposition: Home or Self Care 09/07/[address] [phone] Walker Pride MD Appointment Related 09/06/2023 Refill [facility] Adult Primary [facility] - [place] [address] [place] [address] Ian Mendez MD Medications Refill 08/18/2023 Refill [facility] Adult Primary [facility] - [place] [address] [place], [place] [address] Galilea Mars COMPUTER SYSTEMS ADMINISTRATOR Medications Refill 08/05/[address] [phone] Walker Pride MD Appointment Related 08/03/2023 11:30 EDT Office Visit [place] [address] [place] [address] Walker Pride MD Foot drop, left (Primary Dx) 08/03/2023 11:10 EDT - 08/03/2023 23:59 EDT Hospital Encounter [facility] [address] [place] [place] [address] Lumbar radiculopathy Discharge Disposition: Home or Self Care 08/03/2023 Orders Only [facility] Radiology [facility] [address] [place] [address] Jesus Glover MD 07/19/2023 Orders Only [facility] Neurosurgery [facility] [address], [place] [address] Madiha Hurtado NP Lumbar radiculopathy (Primary Dx) 07/19/2023 Orders Only [facility] Adult Primary [facility] - [place] [address] [place] [address] [place], [place] [address] Galilea Mars, KARIME DDD (degenerative disc disease), lumbar (Primary Dx) 07/19/2023 Telephone [facility] Adult Primary [facility] - [place] [address] [place], [place] [address] Galilea Mars, KARIME Results from Last 3 Months Immunizations Name Administration Dates Next Due Covid-19 mRNA Vaccine (PFIZE R COVID-19) PF 0.3 ml IM (12 yrs+) 08/02/2020,07/12/2020 Covid-19 mRNA, ajith Ready to Use Vaccine (Ion Torrent READY TO USE COVID-19) PF 0.3 mL [...] IM 07/03/2022 Tetanus Vaccine IM, Historical 05/16/2003 Surgical History Surgery Date Site/Laterality Comments WISDOM TOOTH EXTRACTION LUMBAR DISCECTOMY 03/15/2021 - 03/14/2022 L4-L5 microdiskectomy Medical History Medical History Date Comments Back pain 10/06/23- left bu ttock/lateral hip pain, thigh pain and a foot drop. MRI showing inferiorly extruded L3-L4 disk herniation compressing her L4 nerve root Migraine with aura, not intractable History of general anesthesia - no complications Anxiety 10/06/23- well ma naged w zoloft Claustrophobia 10/06/23- MRIs Patient unable to exercise - r/t hip and leg pain w foot drop Family History Medical History Relation Comments Diabetes Father Heart Attack Father s/p stents High Blood Pressure Father High Cholesterol Father Stroke Father Melanoma Maternal Aunt 1 Melanoma Maternal Aunt 2 Tuberculosis Maternal Grandfather Atrial fibrillation Maternal Grandmother Breast Cancer Mother MS Mother Thyroid Disease Mother Relation Status Comments Brother Alive Father Alive Maternal Aunt 1 Alive Maternal Aunt 2 Alive Maternal Grandfather Maternal Grandmother Mother Alive Paternal Grandfather Paternal Grandmother Social History Tobacco Use Types Packs/Day Years [...] place to sleep or slept in a care home (including now)? No 06/21/2022 Interpersonal Safety Answer Date Record ed How often does anyone, inclnadia sanchez family, hit, punch or physically hurt you? Never 06/21/2022 How often does anyone, jason sanchez family, insult, scream, curse or threaten to hurt you? Never 06/21/2022 Education Answer Date Recorded What is the highest level of school you have completed or the highest degree you have received? Master's degree (e.g., MA, MS, Joanne, MEd, LINE SERVICE SUPERVISOR, LILA) 06/19/2020 Sex and Gender Information Value Date Recorded Sex Assigned at Female 10/08/2022 13:26 EDT Gender Identity Female 07/29/2021 16:35 EDT Sexual Orientation Straight 10/08/2022 13 :26 EDT Obstetrics History Last Filed Vital Signs Vital Sign Reading [...] Body Mass Index 27.72 10/06/2023 1501 EDT Plan of Treatment Upcoming Encounters Date Type Department Care Team (Late st Contact Info) Description 10/22/2023 13:25 EDT Hospital Encounter [facility] OR [address] [place] [address] Walker Pride MD [address] [place] [phone] 10/22/2023 13:25 EDT - 10/22/2023 17:00 EDT Surgery [facility] OR [address] [place] [phone] Walker Pride MD [address] [place] [phone] Left L34 decompression, redo left L45 decompression [09104 (CPT??)] 11/22/2023 10:00 EDT Post-op Visit [facility] Neurosurgery - [address] [address] Madiha Hurtado, KARIME [address] [facility], [address] [place] [address] Scheduled Procedures Name Priority Associated Diagnoses Date/Ti me LAMINECTOMY, SPINE, LUMBAR, 1 LEVEL, WITH FORAMINOTOMY OR FACETECTOMY Lumbar radiculopathy 10/22/2023 13:25 EDT LAMINECTOMY, SPINE, WITH FACETECTOMY AND FORAMINOTOMY, ADDITIONAL LEVEL FOLLOWING INITIAL LEVEL Lumbar radiculopathy 10/22/2023 13:25 EDT Health Maintenance Due Date Last Done Comments Advance Directive 07/27/2007 Hepatitis B Vaccine (1 of 3 - 19+ 3-dose series) 2008 Social Determinants Of Health (SDOH) 06/22/2023 06/21/2022 Pap Smear (Cervical Cancer Screening) 07/03/2023 07/02/2020, 05/03/2017, 09/08/2012, Additional history exists Depression Screening 07/04/2023 07/03/2022, 07/02/2020, 10/27/2019 COVID-19 Vaccine ( season) 2023 07/03/2022, 02/18/2021, 08/02/2020, Additional history exists Postponed from 11/13/2022 (Patient Declined) Influenza Immunization (Adult) (#1) 2023 12/04/2019, 02/01/2015, 01/08/2010, Additional history exists Preventive Care Visit 07/03/2024 07/03/2022 , 07/02/2020, 09/08/2012 Cervical Cancer Screening 07/02/2025 HPV/Cotest (Cervical Cancer Screening) 07/02/2025 07/02/2020, 07/02/2020, 06/28/2007 Tetanus (Adult) Immunization 07/03/2032 07/03/2022, 05/16/2003 Hepatitis C Screen Completed 12/08/2009 Pertussis (Adult) Immunization Completed 07/03/2022 HIV Screening Discontinued HPV Vaccines Aged Out No longer eligi ble based on patient's age to complete this topic Procedures Procedure Name Priority Date/Time Associated Diagnosis [...] EDT) 10/05/2023 13:3 3 EDT Scan 2 Hand Filer Balance Wheel PROCEDURE/MINOR JUDY GICAL ORDERABLES * ECG REPORT - SCANNED (10/04/2023 15:36 EDT) 10/04/2023 15:3 6 EDT Scan 2 Hand Filer Balance Wheel PROCEDURE/MINOR JUDY GICAL ORDERABLES * EKG 12-LEAD (10/04/2023 15:14 EDT) 10/04/2023 15:1 4 EDT Narrative [facility] EKG - 10/04/2023 15:25 EDT ? PC Site ? Test Date: ?2023-10-04 Pat Name: ? TERI LANGE ?Department: ?? [facility] ? Room: ? Gender: ? Female ? 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 Requested By: SNOW GALILEA L Order Number: [id number] ? Reading MD: ?? GALILEA SNOW COMPUTER SYSTEMS ADMINISTRATOR ? Measurements Intervals ?[place] ? Rate: ? 63 ? P: ?56 AL: ? 131 ?QRS: ?61 QRSD: ? 93 ? T: ?29 QT: ? 435 ? QTc: ?449 ? Interpretive Statements SINUS RHYTHM I reviewed the tracing and have either agreed or edited the findings in this report. Electronically Signed On 10-04-2023 15:25:00 EDT by GALILEA MARS NP. 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 Electronically Signed On 10-04-2023 15:25:00 EDT by GALILEA BAGLEY. Galilea Mars NP CARDIAC ECG ORDERABL ES [facility] EKG * MR LUMBAR SPINE W WO CONTRAST (09/07/2023 10:19 EDT) Anatomical Region Laterality Modality Spine Magnetic Resonan ce 09/07/2023 15:0 3 EDT Impressions 09/07/2023 15:03 EDT L4-L5 disc bulge with tiny annular fissure and minor spinal canal stenosis and mild bilateral neural foraminal narrowings with flattening/compression of the exiting right and encroachment of exiting left L4 nerve roots. [id number] Narrative 09/07/2023 15:03 EDT EXAM: MRI LUMBAR [...] significant neural foraminal narrowings. Resulting Agency Comment [id number] Procedure Note Jennifer Feliz MD - 09/07/2023 [...] encroachment of exiting left L4 nerve roots. [id number] Walker Pride MD [facility] [place] ORDERABLE S * XR LUMBAR SPINE 4+ VIEWS (08/03/2023 11:22 EDT) Anatomical Region Laterality Modality Computed Radiogr aphy 08/04/2023 10:5 2 EDT Impressions 08/04/2023 10:52 EDT Findings/Impression: Slight retrolisthesis at L3-4 no evidence of dynamic instability. Mild intervertebral disc height loss at L4-5 and L5-S1. No new vertebral body height loss. The included soft tissues are within normal limits. [id number] Narrative 08/04/2023 10:52 EDT XR LUMBAR SPINE 4+ VIEWS ??08/03/2023 11:10 AM Clinical History/Comments: lumbar radiculopathy;M54.16:Lumbar radiculopathy. Technique: 4 views of the lumbar spine Comparison: MRI 07/16/2023; radiograph 06/18/2022 Resulting Agency Comment [id number] Procedure Note Shahzad Way MD - 08/04/2023 [...] included soft tissues are within normal limits. [id number] Madiha Hurtado NP Uriah DIAGNOSTIC IMAGING ORDERABLES * PAP TEST (07/02/2020 17:13 EDT) Specimens A. Cervix and/or Endocervix , ThinPrep Imaging System with Manual Evaluation 07/08/2020 14:50 EDT [facility] Specimen Adequacy Satisfactory for Evaluation - transformation zone component present 07/08/2020 14:50 EDT [facility] General Categorization Negative for intraepithelial lesion or malignancy 07/08/2020 14:50 T [facility] Descriptive Diagnosis Fungal organisms present morphologically consistent with Ryann species. 07/08/2020 14:50 T [facility] Attestation . 07/08/2020 14:50 [facility] at 1450 Clinical History cervical ca screening 07/08/2020 14:50 T [facility] HPV The result for the Human Papillomavirus (HPV) Detection-High Risk Types is Negative. No E6 or E7 mRNA is detected from HPV types 16,18,31,33,35,39 ,45,51,52,56,58,5 9,66, and 68 by document clerk mediated amplification.Nicole ting was performed on specimen [id number] and was resulted on 07/08/2020 1427 EDT by KISHOR, LAB INSTRUMENT RESULTS IN 07/08/2020 14:50 T [facility] Performing Lab [facility] 07/08/2020 14:50 T [facility] Scanned Images 07/08/2020 14:50 EDT [facility] Papanicolaou smear specimen (specimen) CERVIX UTERI STRUCTURE / Unknown 07/02/2020 17:13 EDT 07/02/2020 17:13 EDT Bri Murphy PA-C PATHOLOGY ORDERABLES [facility] [address] [place] [address] * HEPATITIS C ANTIBODY (12/08/2009 21:10 EDT) Hepatitis C Ab Negative Reference Range: Negative [facility] 12/08/2009 21:1 0 EDT 12/08/2009 21:15 EDT [facility] S ORDERABLES [facility] [address] [place] [address] from Last 3 Months or Most Recently Relevant to Health Maintenance Advance Directives For more information, please contact: [phone] * Full Code (Latest Code Status on File) Date Activated Date Inactivated Comments 09/03/2021 11:39 09/03/2021 20:06 Question Answer Comments When the patient has NO PULSE: Full Code / CPR Who Made the Decision? Default/Not Discussed Care Teams Outreach Counselor Relationship Specialty Start Date End Date Galilea Mars, COMPUTER SYSTEMS ADMINISTRATOR [address] [place] [address] PCP - General 09/16/21
--- OUTSIDE RECORDS SUMMARY | 2023-10-19 15:32 | XMS_ITS | Encounter Summary ---
Author Organization [facility] Address [address] [place] [address] Care Team Providers Care Vice President Business & Corporate Development Name Role Phone Galilea Mars NP Primary Care Provider [phone] Encounter Details Date Type Department Care Team (Late st Contact Info) Description 10/06/2023 14:40 EDT - 10/06/2023 15:19 EDT Hospital Encounter [facility] Main [place] Pre-Surgical Testing [address] [place] [address] Social History Tobacco Use Types Packs/Day Years [...] place to sleep or slept in a prison (including now)? No 06/21/2022 Interpersonal Safety Answer [...] Master's degree (e.g., MA, MS, Joanne, MEd, AIR INTELLIGENCE SPECIALIST, LILA) 06/19/2020 Sex and Gender Information Value Date Recorded Sex Assigned at Female 10/08/2022 13:26 EDT Gender Identity Female 07/29/2021 16:35 EDT Sexual Orientation Straight 10/08/2022 13 :26 EDT documented as of this encounter Last Filed Vital Signs Vital Sign Reading Time Taken Comments Blood Pressure - - Pulse - - Temperature - - Respiratory Rate - - Oxygen Saturation - - Inhaled Oxygen Concentration - - Weight 74.4 kg (164 lb) 10/06/2023 1501 EDT Height 163.8 cm (5' 4.5) 10/06/2023 1501 EDT Body Mass Index 27.72 10/06/2023 1501 EDT documented in this encounter Functional Status [...] No 08/03/2023 documented as of this encounter Medications at Time of Discharge Medication Sig Dispensed Refills Start Date End Date acetaminophen (TYLENOL) 500 mg tablet Take 2 Tablets by mouth every 6 hours as needed for Pain. 09/03/2021 calcium carbonate (TUMS) 200 mg calcium (500 mg) tablet,chewable Take 1 Tablet by mouth as needed for Heartburn. cyanocobalamin (VITAMIN B-12) 500 mcg tablet Take 2 Tablets by mouth daily. gabapentin (NEURONTIN) 300 mg capsule Take 1 Capsule by mouth 2 times daily. 180 Capsule 1 08/19/2023 ibuprofen (MOTRIN) 200 mg tablet Take 2 Tablets by mouth every 6 hours as needed for Pain. levonorgestreL (MIRENA) 20 mcg/24 hours (8 yrs) 52 mg IUD 1 Each by intrauterine route Once. 2016 Multivitamins with Minerals tablet tablet Take 1 Tablet by mouth daily. sertraline (ZOLOFT) 100 mg tablet Take 1 Tablet by mouth daily. 90 Tablet 3 11/05/2022 documented as of this encounter OR Notes * Preprocedure Instructions - Kera Gilliam RN - 10/06/2023 1428 EDT Teri Toribio has been instructed as follows regarding medication administration for the day of the scheduled procedure. Date of Surgery: 10/22/23 Instructions for Taking Medications Day of Surgery Medication Dose and frequency Last Dose Hold Day of Surgery Take Day of Surgery acetaminophen (TYLENOL) 500 mg tablet Take 2 Tablets by mouth every 6 hours as needed for Pain. yes calcium carbonate (TUMS) 200 mg calcium (500 mg) tablet,chewable Take 1 Tablet by mouth as needed for Heartburn. hold cyanocobalamin (VITAMIN B-12) 500 mcg tablet Take 2 Tablets by mouth daily. 10/14/23 gabapentin (NEURONTIN) 300 mg capsule Take 1 Capsule by mouth 2 times daily. yes ibuprofen (MOTRIN) 200 mg tablet Take 2 Tablets by mouth every 6 hours as needed for Pain. 10/14/23 hold levonorgestreL (MIRENA) 20 mcg/24 hours (8 yrs) 52 mg IUD 1 Each by intrauterine route Once. 2016 Multivitamins with Minerals tablet tablet Take 1 Tablet by mouth daily. 10/14/23 sertraline (ZOLOFT) 100 mg tablet Take 1 Tablet by mouth daily. yes Instructions: Call your surgeon prior to surgery date IF: You become ill. You have any new skin problems near the area where your surgery will be, such as a rash, blister, or infection. Your surgeon may have given you specific instructions to prepare for surgery. Please follow surgeonspecific instructions & call surgeon's office with any questions. Fasting: Follow the eating and drinking instructions below unless otherwise instructed by your surgeon. No solid food or liquids containing fats, including milk*, after midnight. On the day of your procedure, you should only have clear liquids (see ???Acceptable Liquids?? listed below). Stop drinking 2 hours before your arrival time to the hospital. Acceptable Liquids: DO NOT ADD THICKENERS TO ANY LIQUIDS Water Clear apple juice Clear white grape juice Clear sports drinks / Pedialyte (no protein or coconut water based sports drinks) *Children under 3 years of age: Water- up to 4 hours before surgical time Clear apple juice- up to 4 hours before surgical time Clear white grape juice- up to 4 hours before surgical time Clear sports drinks / Pedialyte- up to 4 hours before surgical time Breast milk - up to 4 hours before surgical time - *do not add cereals Non-human milk or formula - up to 6 hours before surgical time *do not add cereal or use formula with cereal already added Shower: with an ANTIBACTERIAL SOAP (or scrub sponge if provided by your surgeon's office) the nightbefore surgery and the morning of surgery. Do not shave your surgical site for 3 days prior to surgery. After your morning shower avoid using creams, lotion, powders, deodorant, makeup, hairspray, perfumes or colognes. Remove all fingernail malawian, makeup, jewelery and body piercings before surgery. Ride Home: We require you have a responsible adult to drive you home after surgery or to accompany you if getting home via Taxi or Bus. If your ride cannot wait for you at the hospital, they still need to come in to pick you up, to assist with medication mushroom picker from pharmacy, review of discharge instructions and surgical consult. We ask that your ride stay within 15 minutes of the hospital for mushroom picker. Medications: Take as directed above with a sip of water on day of surgery. (If a medication must betaken with something other than clear liquids or sips of water, please call the PreAdmission Testing Clinic at for guidance.) Bring a list of your medications to the hospital. Please list when you last took each of medication. Leave actual medications at home unless told otherwise. CPAP/BiPAP: Bring your cleaned CPAP/BiPAP machine into preop on the day of your surgery. Be sure toempty the water chamber prior to transport Smoking: Stop smoking tobacco and marijuana prior to surgery as much as possible, avoiding it for aminimum of 24 hours prior to surgery. Legal Guardianship: BRING Proof of Guardianship on Day of Surgery. Legal Guardian must be availableon the Day of Surgery by Telephone if not physically present on the Day of Surgery. Clothing: Wear loose fitting and comfortable clothing. For arm and hand surgery wear a zip up or button up shirt with short sleeves. For eye surgery, do not wear a shirt that pulls over the head unless it has a wide neck opening. Valuables: Do not bring any on day of surgery, except money you may need for you hospital co-pay orto purchase any prescriptions. Visitation: Typically, two visitors are allowed in the Preop and Recovery areas. Each area of the hospital may have different visitation guidelines. Contact Information: Prior to Day of Surgery, call Pre-Admission Testing Clinic: [phone]. PAT toll Free Number . For Day of Surgery: [facility]: [phone] [facility]; [phone]. Visit our website for more information: [email or web address] Advance Directives: You can get the forms in a doctor's office, a hospital, a law office, a state or local office for the aging, a senior center, a prison, or online. For more information, including forms for your state, see the [employer] website ([email or web address]). If not already done, please bring a signed copy of your Advance Directive with you to the hospital so that it may scanned into your electronic health record. documented in this encounter Plan of Treatment Upcoming Encounters Date Type Department Care Team (Late st Contact Info) Description 10/22/2023 13:25 EDT Hospital Encounter [facility] OR [address] [place] [phone] Walker Pride MD [address] [place] [phone] 10/22/2023 13:25 EDT - 10/22/2023 17:00 EDT Surgery [facility] OR [address] [place] [address] [phone] Walker Pride MD [address] [place] [phone] Left L34 decompression, redo left L45 decompression [94917 (CPT??)] 11/22/2023 10:00 EDT Post-op Visit [facility] Neurosurgery - Main [place] [address] [place] [address] Madiha Hurtado NP [address] [facility], [facility], [address] [place] [phone] Scheduled Procedures Name Priority Associated Diagnoses Date/Ti me LAMINECTOMY, SPINE, LUMBAR, 1 LEVEL, WITH FORAMINOTOMY OR FACETECTOMY Lumbar radiculopathy 10/22/2023 13:25 EDT LAMINECTOMY, SPINE, WITH FACETECTOMY AND FORAMINOTOMY, ADDITIONAL LEVEL FOLLOWING INITIAL LEVEL Lumbar radiculopathy 10/22/2023 13:25 EDT documented as of this encounter Visit Diagnoses Not on filedocumented in this encounter Historical Medications * This list may reflect changes made after this encounter. Medication Sig Dispensed Refills Start Date End Date calcium carbonate (TUMS) 200 mg calcium (500 mg) tablet,chewable Take 1 Tablet by mouth as needed for Heartburn. ibuprofen (MOTRIN) 200 mg tablet Take 2 Tablets by mouth every 6 hours as needed for Pain. added in this encounter Care Teams Vice President Business & Corporate Development Relationship Specialty Start Date End Date Galilea Mars NP [address] [place] [phone] PCP - General 09/16/21 documented as of this encounter
--- OUTSIDE RECORDS SUMMARY | 2023-10-19 15:33 | XMS_ITS | Encounter Summary ---
Author Organization [facility] Address [address] [place] [address] Care Team Providers Care Broadcast Maintenance Technician Name Role Phone Galilea Mars MACHINE FEEDER Primary Care Provider [phone] Reason for Referral * Radiology Services (Routine/Next Available) - Authorized Specialty Diagnoses / Procedures Referred By Contac t Referred To Contact Radiology Diagnoses Foot drop, left Procedures MR LUMBAR SPINE W WO CONTRAST Walker Pride MD [address] [place] [phone] [facility] Referral ID Status Reason Start Date Expiration Date V isits Requested Visits Authorized [id number] Authorized 08/10/2023 02/06/2024 1 1 Reason for Visit * Reason Comments Back Problem LBP- Left foot drop * Consult (Urgent) - Specialty Report Received Specialty Diagnoses / Procedures Referred By Liat t Referred To Contact Neurosurgery Diagnoses DDD (degenerative disc disease), lumbar Galilea Mars, MACHINE FEEDER [address] [place] [address] Walker Pride MD [address] [phone] Referral ID Status Reason Start Date Expiration Date Visits Requested Visits Authorized [id number] Specialty Report Received Specialty Services Required 07/19/2023 1 1 Encounter Details Date Type Department Care Team (Late st Contact Info) Description 08/03/2023 11:30 EDT Office Visit [facility] Neurosurgery - [facility] [address] [place] [address] Walker Pride MD [address] [place] [address] [address] [place] [address] Foot drop, left (Primary Dx) Social History Tobacco Use Types Packs/Day Years [...] Master's degree (e.g., MA, MS, Joanne, MEd, PELLETIZER OPERATOR, LILA) 06/19/2020 Sex and Gender Information Value [...] No 08/03/2023 documented as of this encounter Progress Notes * Walker Pride MD - 08/03/2023 1130 EDT This office note has been dictated. * Walker Pride MD - 08/03/2023 1130 EDT [facility] NEUROLOGICAL SURGERY - [address] PROGRESS / FOLLOWUP NOTE - 08/03/2023 SUBJECTIVE: Ms Toribio is a very nice 33-year-old woman who I have cared for in the past with a left L4-L5 microdiskectomy, who did well. Six weeks ago, she developed left buttock/lateral hip pain, thigh pain and a foot drop. She was evaluated in [place]. She was ultimately seen by her primary caredoctor, and an MRI was obtained. Today, we have discussed her symptoms. I have specifically asked her if the distribution of her leg pain from this incident was the same as her previous incident, andivory says no, it was not, it is different. It is also less constant. Her leg pain itself has resolved. She only has hip pain at this point, but persistent foot drop, which has not improved. She has a 2/5 in her tibialis anterior and EHL. DIAGNOSTIC DATA: I reviewed her imaging with her. I do appreciate postoperative changes on the leftat L5-S1, but I do not see anything that looks like an acute disk herniation. She does, however, have what appears to be an inferiorly extruded L3-L4 disk herniation compressing her L4 nerve root, which is consistent with her complaints. ASSESSMENT AND PLAN: Today, we have discussed her foot drop may be related to the fact that she hashad a previous L5 nerve root injury, and now with an L4 nerve root injury, this is clinically more severe than it might be otherwise. This radiographic finding is not corroborated by the radiologist's report, and her picture is slightly motion degraded. I have discussed with her today repeating GalileoRI here at the [facility] on a closed magnet. She will follow up with lorena mukherjee to discuss whether or not surgery is appropriate, but I think at her young age, with 2/5 foot drop, may lean us towards more aggressive surgical intervention. Walker Pride MD / Dictation ID: [id number] cc: documented in this encounter Plan of Treatment Upcoming Encounters Date Type Department Care Team (Late st Contact Info) Description 10/22/2023 13:[address] [facility] OR [address] [place] [address] [phone] Walker Pride MD [address] [place] [phone] 10/22/2023 13:25 EDT - 10/22/2023 17:[address] [facility] OR [address] [place] [address] [phone] Walker Pride MD [address] [place] [phone] Left L34 decompression, redo left L45 decompression [29666 (CPT??)] 11/22/2023 10:00 EDT Post-op Visit [facility] Neurosurgery - [address] [phone] Madiha Hurtado NP [address] [place] [phone] Scheduled Procedures Name Priority Associated Diagnoses Date/Ti me LAMINECTOMY, SPINE, LUMBAR, 1 LEVEL, WITH FORAMINOTOMY OR FACETECTOMY Lumbar radiculopathy 10/22/2023 13:25 EDT LAMINECTOMY, SPINE, WITH FACETECTOMY AND FORAMINOTOMY, ADDITIONAL LEVEL FOLLOWING INITIAL LEVEL Lumbar radiculopathy 10/22/2023 13:25 EDT documented as of this encounter Results * MR LUMBAR SPINE W WO CONTRAST (09/07/2023 10:19 EDT) Anatomical Region Laterality Modality Spine Magnetic Resonan ce 09/07/2023 15:0 3 EDT Impressions 09/07/2023 15:03 EDT L4-L5 disc bulge with tiny annular fissure and minor spinal canal stenosis and mild bilateral neural foraminal narrowings with flattening/compression of the exiting right and encroachment of exiting left L4 nerve roots. [id number] Narrative 09/07/2023 15:03 EDT EXAM: MRI LUMBAR [...] significant neural foraminal narrowings. Resulting Agency Comment [id number] Procedure Note Jennifer Feliz MD - 09/07/2023 [...] encroachment of exiting left L4 nerve roots. [id number] Walker Pride MD [facility] ORDERABLE S documented in this encounter Visit Diagnoses Diagnosis Foot drop, left- Primary Other acquired deformity of ankle and foot Foot drop, left Other acquired deformity of ankle and foot Lumbar radiculopathy Thoracic or lumbosacral neuritis or radiculitis, unspecified documented in this encounter Care Teams Broadcast Maintenance Technician Relationship Specialty Start Date End Date Galilea Mars NP [address] [place] [phone] PCP - General 09/16/21 documented as of this encounter
--- OUTSIDE RECORDS SUMMARY | 2023-10-19 15:33 | XMS_ITS | Encounter Summary ---
Author Organization [facility] Address [address] [place] [address] Care Team Providers Care Installation Tech Name Role Phone Galilea Mars NP Primary Care Provider [phone] Reason for Visit * Reason Onset Date Comments Other 04/08/2022 Encounter Details Date Type Department Care Team (Late st Contact Info) Description 04/08/2022 Telephone [facility] Neurosurgery - [facility] [address] [place] [address] Destinee Tomlin RN Other Social History Tobacco Use Types Packs/Day Years [...] care, and heating? Not hard at all 09/30/2021 PHQ-2 Answer Date Recorded PHQ-2 SUBTOTAL 2 09/30/2021 Exercise Vital Sign Answer Date Recorde d [...] the money to buy more. Never true 10/01/19 22 Within the past 12 months, t he food you bought just didn't last and you didn't have money to get more. Never true 09/30/2021 PRAPARE - Transportation Answer Date Re corded In the past 12 months, has l ack of transportation kept you from medical appointments or from getting medications? No 09/12 In the past 12 months, has l ack of transportation kept you from meetings, work, or from getting things needed for daily living? No 09/30/2021 Housing Stability Vital Sign Answer Kameron e Recorded In the last 12 months, was t here a time when you were not able to pay the mortgage or rent on time? No 09/30/2021 In the last 12 months, how many places have you lived? 1 09/30/2021 In the last 12 months, was t here a time when you did not have a steady place to sleep or slept in a custodial (including now)? No 09/30/2021 Interpersonal Safety Answer Date Record ed How often does anyone, jason sanchez family, hit, punch or physically hurt you? Never 09/30/2021 How often does anyone, jason sanchez family, insult, scream, curse or threaten to hurt you? Never 09/30/2021 Education Answer Date Recorded What is the highest level of school you have completed or the highest degree you have received? Master's degree (e.g., MA, MS, Joanne, MEd, INDUSTRIAL TWISTING MACHINE OPERATOR, LILA) 06/19/2020 Sex and Gender Information Value Date Recorded Sex Assigned at Female 10/08/2022 13:26 EDT Gender Identity Female 07/29/2021 16:35 EDT Sexual Orientation Straight 10/08/2022 13 :26 EDT documented as of this encounter Miscellaneous Notes * Telephone Encounter - Destinee Tomlin RN - 04/08/2022 8739 EST Received call from the patient who states that she has had the new imaging completed as previously advised. She is wondering if we can review it and advise her if she should be seen for follow up. Spoke with the patient who was advised that we will need a new referral prior to seeing her. We discussed that we won't know if there are any options for her that we can offer until she is seen but since she is have new symptoms and I wanting to be seen, we would be happy to see her back. She states she will contact her PCP to have the referral placed. I advised once we have the referral we will reach out to get her scheduled. Patient verbalized understanding and denied any other questions at this time. Patient was encouraged to contact the office with any further questions or concerns. documented in this encounter Plan of Treatment Upcoming Encounters Date Type Department Care Team (Late st Contact Info) Description 10/22/2023 13:25 EDT Hospital Encounter [facility] OR [address] [place] [address] [phone] Walker Pride MD [address] [place] [address], [address] [place] [phone] 10/22/2023 13:25 EDT - 10/22/2023 17:00 EDT Surgery [facility] OR [address] [place] [address] [phone] Walker Pride MD 111 [facility], [address] [place] [phone] Left L34 decompression, redo left L45 decompression [[id number] (CPT??)] 11/22/2023 10:00 EDT Post-op Visit [facility] Neurosurgery - [facility] [address] [place] [address] Madiha Hurtado NP 111 [facility], [address] [place] [phone] Scheduled Procedures Name Priority Associated Diagnoses Date/Ti me LAMINECTOMY, SPINE, LUMBAR, 1 LEVEL, WITH FORAMINOTOMY OR FACETECTOMY Lumbar radiculopathy 10/22/2023 13:25 EDT LAMINECTOMY, SPINE, WITH FACETECTOMY AND FORAMINOTOMY, ADDITIONAL LEVEL FOLLOWING INITIAL LEVEL Lumbar radiculopathy 10/22/2023 13:25 EDT documented as of this encounter Visit Diagnoses Not on filedocumented in this encounter Care Teams Installation Tech Relationship Specialty Start Date End Date Galilea Mars, GAUGE MACHINE OPERATOR [address] [place] [phone] PCP - General 09/16/21 documented as of this encounter
--- OUTSIDE RECORDS SUMMARY | 2023-10-19 15:33 | XMS_ITS | Encounter Summary ---
Author Organization [facility] Address [address] [place] [address] Care Team Providers Care Stone Gluer Name Role Phone Galilea Mars COST CONTROLLER Primary Care Provider [phone] Reason for Visit * Reason Comments New Patient Visit Cervical radiculopat hy * Consult (Routine/Next Available) - Specialty Report Received Specialty Diagnoses / Procedures Referred By Liat mehta Referred To Contact Neurosurgery Diagnoses Cervical radiculopathy Galilea Mars, COST CONTROLLER [address] [place] [address] Walker Pride MD [address] [place] [phone] Referral ID Status Reason Start Date Expiration Date Visits Requested Visits Authorized [id number] Specialty Report Received Specialty Services Required 04/10/2022 1 1 Encounter Details Date Type Department Care Team (Late st Contact Info) Description 06/18/2022 11:30 EDT Office Visit [facility] Neurosurgery - [address] [address] Walker Pride MD [address] [place] [phone] Cervical radiculopathy (Primary Dx) Social History Tobacco Use Types [...] food, housing, medical care, and heating? Not very hard 05/17/2022 PHQ-2 Answer Date Recorded PHQ-2 SUBTOTAL 2 05/17/2022 Exercise Vital Sign Answer Date Recorde d [...] the money to buy more. Never true 05/18/19 23 Within the past 12 months, t he food you bought just didn't last and you didn't have money to get more. Never true 05/17/2022 PRAPARE - Transportation Answer Date Re corded In the past 12 months, has l ack of transportation kept you from medical appointments or from getting medications? No 07/2022 In the past 12 months, has l ack of transportation kept you from meetings, work, or from getting things needed for daily living? No 05/17/2022 Housing Stability Vital Sign Answer Kameron e Recorded In the last 12 months, was t here a time when you were not able to pay the mortgage or rent on time? No 05/17/2022 In the last 12 months, how many places have you lived? 1 05/17/2022 In the last 12 months, was t here a time when you did not have a steady place to sleep or slept in a penitentiary (including now)? No 05/17/2022 Interpersonal Safety Answer Date Record ed How often does anyone, inclnadia sanchez family, hit, punch or physically hurt you? Never 05/17/2022 How often does anyone, inclnadia sanchez family, insult, scream, curse or threaten to hurt you? Never 05/17/2022 Education Answer Date Recorded What is the highest level of school you have completed or the highest degree you have received? 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 No / Unsure 06/18/2022 11:52 EDT documented as of this encounter Last Filed Vital Signs Vital Sign Reading Time Taken Comments Blood Pressure 118/70 06/18/2022 1152 EDT Pulse 84 06/18/2022 1152 EDT Temperature - - Respiratory Rate 18 06/18/2022 1152 EDT Oxygen Saturation 98% 06/18/2022 1152 EDT Inhaled Oxygen Concentration - - Weight 70.3 kg (155 lb) 06/18/2022 1152 EDT Height 163.8 cm (5' 4.5) 06/18/2022 1152 EDT Body Mass Index 26.19 06/18/2022 1152 EDT documented in this encounter Progress Notes * Walker Pride MD - 06/18/2022 1130 EDT This office note has been dictated. 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 She has had intermittent episodes of her neck locking upover the years, most recently in December and again more recently. This time, however, for the firsttime, she developed intermittent left arm numbness. She describes this in her lateral shoulder, lateral arm into she thinks the forefinger, but she is less certain about the distribution in her hand.She denies any weakness. She denies any difficulty with balance, fine motor skills, or bowel or bladder symptoms. She denies right arm symptoms. She has been treated with date night caregiver which doeshelp to some extent. She has not had injections. She has not been using nonsteroidal anti-inflammatory or gabapentin. DIAGNOSTIC DATA: I have reviewed her MRI with her. She has a central disk bulge at C5-C6 causing effacement of the spinal cord. There is no T2 hyperintensity. She has a central left-sided C6-C7 disk herniation as well, slightly effacing the anterior spinal cord. There is no T2 hyperintensity. No translational instability on flexion/extension. ASSESSMENT AND PLAN: I have discussed with Ms Toribio that I feel likely the left-sided C6-C7 disk herniation is the cause of her current symptoms. Certainly, the C5-C6 could be involved as well. We have discussed the difference between cervical radiculopathy and cervical myelopathy currently by her exam and her complaints. She does not have cervical myelopathy. We have discussed the natural history of cervical radiculopathy and that at this point, I would recommend continued physical therapy, date night caregiver, the regular use of a nonsteroidal anti-inflammatory. I have asked her to contact her primary care doctor to reinstitute gabapentin therapy, which she had used for her lumbar radiculopathy in the past. I have counseled her not to get into any situations where high-speed impacts could occur with water skiing, roller coasters, mountain biking, etc. She is understanding of this. I have as well said if she were to develop any of the above described symptoms of myelopathy, she should contact us immediately. I will schedule her for followup in 3 months' time. Whether or not injection therapies would be appropriate down the road for her radicular symptoms remains to be seen. I look forward to seeing her back in 3 months' time. Walker Pride MD / AM Dictation ID: [id number] cc: documented in this encounter Plan of Treatment Upcoming Encounters Date Type Department Care Team (Late st Contact Info) Description 10/22/2023 13:25 EDT Hospital Encounter [facility] OR [address] [place] [phone] Walker Pride MD [address] [place] [address] [address] [place] [phone] 10/22/2023 13:25 EDT - 10/22/2023 17:00 EDT Surgery [facility] OR [address] [place] [address] [phone] Walker Pride MD [address] [place] [address] [address] [place] [phone] Left L34 decompression, redo left L45 decompression [93202 (CPT??)] 11/22/2023 10:00 EDT Post-op Visit [facility] Neurosurgery - [address] [phone] Madiha Hurtado NP 111 [facility], [address] [place] [phone] Scheduled Procedures Name Priority Associated Diagnoses Date/Ti me LAMINECTOMY, SPINE, LUMBAR, 1 LEVEL, WITH FORAMINOTOMY OR FACETECTOMY Lumbar radiculopathy 10/22/2023 13:25 EDT LAMINECTOMY, SPINE, WITH FACETECTOMY AND FORAMINOTOMY, ADDITIONAL LEVEL FOLLOWING INITIAL LEVEL Lumbar radiculopathy 10/22/2023 13:25 EDT documented as of this encounter Visit Diagnoses Diagnosis Cervical radiculopathy- Primary Brachial neuritis or radiculitis nos Lumbar radiculopathy Thoracic or lumbosacral neuritis or radiculitis, unspecified documented in this encounter Care Teams Stone Gluer Relationship Specialty Start Date End Date Galilea Mars NP [address] [place] [phone] PCP - General 09/16/21 documented as of this encounter
--- OUTSIDE RECORDS SUMMARY | 2023-10-19 15:33 | XMS_ITS | Encounter Summary ---
Author Organization [facility] Address [address] [place] [address] Care Team Providers Care Furnace Liner Name Role Phone Galilea Mars NP Primary Care Provider [phone] Reason for Visit * Reason Onset Date Comments Medications Refill 09/06/2023 Encounter Details Date Type Department Care Team (Late st Contact Info) Description 09/06/2023 Refill [facility] - [place] [address] [place] [address] Ian Mendez MD [address] [place] [phone] Medications Refill Social History Tobacco Use Types Packs/Day Years [...] Master's degree (e.g., MA, MS, Joanne, MEd, CLEANING MANAGER, LILA) 06/19/2020 Sex and Gender Information Value [...] encounter Miscellaneous Notes * Telephone Encounter - Chandana Crawley RN - 09/06/2023 1110 EDT Medication(s) Requested: Lorazepam Preferred Pharmacy: Is patient out of medication? Unknown Last Refill Date: 07/15/23 1 tab prior to MRI Last Visit Date with Ordering Provider: Visit date not found Next Non-Acute Visit Date Scheduled with Care Team: Visit date not found CHANDANA CRAWLEY RN 09/06/2023 11:10 documented in this encounter Plan of Treatment Upcoming Encounters Date Type Department Care Team (Late st Contact Info) Description 10/22/2023 13:25 EDT Hospital Encounter [facility] OR [address] [place] [address] Walker Pride MD 111 [facility], [address] [place] [phone] 10/22/2023 13:25 EDT - 10/22/2023 17:00 EDT Surgery [facility] OR [address] [place], [place] [phone] Walker Pride MD 111 [facility], [address] [place] [phone] Left L34 decompression, redo left L45 decompression [56882 (CPT??)] 11/22/2023 10:00 EDT [facility]op [facility] - [facility] [address] [place], [place] [phone] Madiha Hurtado NP 111 [facility], [address] [place] [phone] Scheduled Procedures Name Priority Associated Diagnoses Date/Ti me LAMINECTOMY, SPINE, LUMBAR, 1 LEVEL, WITH FORAMINOTOMY OR FACETECTOMY Lumbar radiculopathy 10/22/2023 13:25 EDT LAMINECTOMY, SPINE, WITH FACETECTOMY AND FORAMINOTOMY, ADDITIONAL LEVEL FOLLOWING INITIAL LEVEL Lumbar radiculopathy 10/22/2023 13:25 EDT documented as of this encounter Visit Diagnoses Not on filedocumented in this encounter Care Teams Furnace Liner Relationship Specialty Start Date End Date Galilea Mars NP [address] [place] [phone] PCP - General 09/16/21 documented as of this encounter
--- OUTSIDE RECORDS SUMMARY | 2023-10-19 15:33 | XMS_ITS | Encounter Summary ---
Author Organization [facility] Address [address] [place] [address] Care Team Providers Care International Travel Consultant Name Role Phone Galilea Mars LITIGATION SUPPORT ANALYST Primary Care Provider [phone] Reason for Visit * Reason Comments Finger Injury Saw clear choice on Wednesday, nothing done at that visit. Left ring finger has been infected for a little over a week, started as a hangnail. Encounter Details Date Type Department Care Team (Late st Contact Info) Description 09/02/2022 8:15 EDT Office Visit [facility] Adult Primary Care - [place] [address] [place] [address] Galilea Mars, LITIGATION SUPPORT ANALYST [address] [place] [address] Cellulitis of finger of left hand (Primary Dx) Social History Tobacco Use Types Packs/Day Years Used Date Smoking Tobacco: Never Smokeless Tobacco: Never Tobacco Cessation:Counseling Given: No Alcohol Use Standard Drinks/Week Comments Yes 0 [...] money to buy more. Never true 06/22/19 Within the past 12 months, t he [...] place to sleep or slept in a senior care (including now)? No 06/21/2022 Interpersonal Safety Answer [...] Master's degree (e.g., MA, MS, Joanne, MEd, MANAGEMENT ANALYST, LILA) 06/19/2020 Sex and Gender Information Value Date Recorded Sex Assigned at Female 10/08/2022 13:26 EDT Gender Identity Female 07/29/2021 16:35 EDT Sexual Orientation Straight 10/08/2022 13 :26 EDT documented as of this encounter Last Filed Vital Signs Vital Sign Reading Time Taken Comments Blood Pressure 112/72 09/02/2022 0831 EDT Pulse 60 09/02/2022 0831 EDT Temperature 36.1 ??C (96.9 ??F) 09/02/2022 0831 EDT Respiratory Rate - - Oxygen Saturation - - Inhaled Oxygen Concentration - - Weight - - Height - - Body Mass Index - - documented in this encounter Ordered Prescriptions Prescription Sig Dispensed Refills Start Date End Da te cephalexin (KEFLEX) 500 mg capsuleIndications:Cellu litis of finger of left hand Take 1 Capsule by mouth 4 times daily for 5 days. 20 Capsule 09/02/2022 09/07/2022 documented in this encounter Progress Notes * Galilea Mars NP - 09/02/2022 0815 EDT Subjective: Patient ID: Teri Toribio is an 32 y.o. female. Chief Complaint Patient presents with ??? Finger Injury Saw clear choice on Wednesday, nothing done at that visit. Left ring finger has been infected for a little over a week, started as a hangnail. HPI Patient reports that she pulled a hang nail from her left ring finger while driving last week. SHe didn't realize how deep it went until after it was pulled. She cleaned area as soon as she could. The area then became red and inflammed. A pocket of fluid formed which has opened 2x now (once with pus, the second with blood). She has been using OTC antibiotic ointment and salt soaks a few times. Was seen by Diane SMITH on Wednesday and was recommended no treatment at the time. No improvement since. Patient Active Problem List Diagnosis ??? Contraceptive management ??? Constipation by delayed colonic transit ??? Obsessive-compulsive disorder ??? Migraine with aura and without status migrainosus, not intractable ??? L4-L5 disc bulge ??? Lumbosacral radiculopathy at L5 Outpatient Medications Marked as Taking for the 09/02/22 encounter (Office Visit) with Galilea Mars NP Medication Sig Dispense Refill ??? acetaminophen (TYLENOL) 500 mg tablet Take 2 Tablets by mouth every 6 hours as needed for Pain. ??? clotrimazole-betamethasone (LOTRISONE) cream Apply to affected areas on hands twice daily 45 g 1 ??? cyanocobalamin (VITAMIN B-12) 500 mcg tablet Take 1 Tablet by mouth daily. ??? gabapentin (NEURONTIN) 300 mg capsule Take 1 Capsule by mouth 2 times daily. 180 Capsule 1 ??? levonorgestreL (MIRENA) 20 mcg/24 hours (8 yrs) 52 mg IUD 1 Each by intrauterine route Once. 2017 ??? Multivitamins with Minerals tablet tablet Take 1 Tablet by mouth daily. ??? sertraline (ZOLOFT) 100 mg tablet Take 1 Tablet by mouth daily. 90 Tablet 3 ROS - See HPI Objective: BP 112/72 (BP Cuff Location: Right arm, BP Patient Position: Sitting, BP Cuff Sizes: Adult, regular) Pulse 60 Temp 36.1 ??C (96.9 ??F) (Tympanic) Physical Exam Vitals reviewed. Constitutional: General: She is not in acute distress. Appearance: Normal appearance. She is well-developed, well-groomed and well- nourished. She is not ill-appearing or diaphoretic. Eyes: General: No scleral icterus. Conjunctiva/sclera: Conjunctivae normal. Pulmonary: Effort: Pulmonary effort is normal. Skin: General: Skin is warm and dry. Coloration: Skin is not pale. Comments: Left ring finger - lateral aspect of distal fingernail inflamed, erythema, tender to touch. Neurological: General: No focal deficit present. Mental Status: She is alert. Psychiatric: Attention and Perception: Attention normal. Mood and Affect: Mood and affect normal. Speech: Speech normal. Behavior: Behavior normal. Behavior is cooperative. Assessment / Plan: Teri was seen today for finger injury. Diagnoses and all orders for this visit: Cellulitis of finger of left hand Encouraged continued salt water soaks 2x daily for about 20mins for the next 2-3 days. Can apply thin layer of hydrocortisone cream 2x daily to area in 3-5 days if it has not started to return to normal appearance. For now, complete antibiotic course, keep covered during the day and open at night. If symptoms of yeast infection begin, patient to reach out for diflucan 150mg once. - cephalexin (KEFLEX) 500 mg capsule; Take 1 Capsule by mouth 4 times daily for 5 days. Galilea Mars NP 09/02/2022 8:36 documented in this encounter Plan of Treatment Upcoming Encounters Date Type Department Care Team (Late st Contact Info) Description 10/22/2023 13:25 EDT Hospital Encounter [facility] OR [address] [place] [address] [phone] Walker Pride MD [address] [place] [phone] 10/22/2023 13:25 EDT - 10/22/2023 17:00 EDT Surgery [facility] OR [address] [place] [address] [phone] Walker Pride MD [address] [place] [address] [phone] Left L34 decompression, redo left L45 decompression [03223 (CPT??)] 11/22/2023 10:00 EDT Post-op Visit [facility] Neurosurgery - [address] [phone] Madiha Hurtado NP [address] [place] [phone] Scheduled Procedures Name Priority Associated Diagnoses Date/Ti me LAMINECTOMY, SPINE, LUMBAR, 1 LEVEL, WITH FORAMINOTOMY OR FACETECTOMY Lumbar radiculopathy 10/22/2023 13:25 EDT LAMINECTOMY, SPINE, WITH FACETECTOMY AND FORAMINOTOMY, ADDITIONAL LEVEL FOLLOWING INITIAL LEVEL Lumbar radiculopathy 10/22/2023 13:25 EDT documented as of this encounter Visit Diagnoses Diagnosis Cellulitis of finger of left hand- Primary Cellulitis and abscess of finger, unspecified Lumbar radiculopathy Thoracic or lumbosacral neuritis or radiculitis, unspecified documented in this encounter Discontinued Medications Medication Sig Discontinue Reason Start Date End Da te riboflavin, vitamin B2, 400 mg tabletIndications:Migrain e with aura and without status migrainosus, not intractable Take 1 Tab by mouth daily. Therapy completed 08/21/2020 09/02/2022 documented as of this encounter Care Teams International Travel Consultant Relationship Specialty Start Date End Date Galilea Mars NP [address] [place] [phone] PCP - General 09/16/21 documented as of this encounter
--- OUTSIDE RECORDS SUMMARY | 2023-10-19 15:33 | XMS_ITS | Encounter Summary ---
Author Organization [facility] Address [address] [place] [address] Care Team Providers Care Long Haul Truck Driver Name Role Phone Galilea Mars NP Primary Care Provider [phone] Reason for Referral * Radiology Services (Routine/Next Available) - Authorization Not Required Specialty Diagnoses / Procedures [facility] Referred To Contact Diagnoses Cervical radiculopathy Procedures XR CERVICAL SPINE 4-5 VIEWS Madiha Hurtado NP [address] [place] [phone] [facility] Referral ID Status Reason Start Date Expiration Date Visits Requested Visits Authorized [id number] Authorization Not Required 04/16/2022 1 1 Encounter Details Date Type Department Care Team (Late st Contact Info) Description 04/16/2022 Orders Only [facility] Neurosurgery - [address] [address] Madiha Hurtado NP [address] [phone] Cervical radiculopathy (Primary Dx) Social History [...] place to sleep or slept in a nursing home (including now)? No 09/30/2021 Interpersonal Safety Answer Date Record ed How often does anyone, inclu daniel family, hit, punch or physically hurt you? Never 09/30/2021 How often does anyone, inclu daniel family, insult, scream, curse or threaten to hurt you? Never 09/30/2021 Education Answer Date Recorded What is the highest level of school you have completed or the highest degree you have received? Master's degree (e.g., MA, MS, Joanne, MEd, FRONT OFFICE CLERK, LILA) 06/19/2020 Sex and Gender Information Value Date Recorded Sex Assigned at Female 10/08/2022 13:26 EDT Gender Identity Female 07/29/2021 16:35 EDT Sexual Orientation Straight 10/08/2022 13 :26 EDT documented as of this encounter Plan of Treatment Upcoming Encounters Date Type Department Care Team (Late st Contact Info) Description 10/22/2023 13:25 EDT Hospital Encounter [facility] OR [address] [place] [address] [phone] Walker Pride MD [address] [place] [phone] 10/22/2023 13:25 EDT - 10/22/2023 17:00 EDT Surgery [facility] OR [address] [place] [address] [phone] Walker Pride MD [address] [place] [phone] Left L34 decompression, redo left L45 decompression [[id number] (CPT??)] 11/22/2023 10:00 EDT Post-op Visit [facility] Neurosurgery - Main [place] [address] [place], [place] [phone] Madiha Hurtado NP 111 [facility], Level [address] [place] [phone] Scheduled Procedures Name Priority Associated Diagnoses Date/Ti me LAMINECTOMY, SPINE, LUMBAR, 1 LEVEL, WITH FORAMINOTOMY OR FACETECTOMY Lumbar radiculopathy 10/22/2023 13:25 EDT LAMINECTOMY, SPINE, WITH FACETECTOMY AND FORAMINOTOMY, ADDITIONAL LEVEL FOLLOWING INITIAL LEVEL Lumbar radiculopathy 10/22/2023 13:25 EDT documented as of this encounter Results * XR CERVICAL SPINE 4-5 VIEWS (06/18/2022 10:39 EDT) Anatomical Region Laterality Modality Left Computed Radiogr aphy 06/19/2022 12:4 0 EDT Impressions 06/19/2022 12:40 EDT No dynamic instability. Narrative 06/19/2022 12:40 EDT 06/18/2022 10:30 AM Clinical History/Comments: Cervical radiculopathy. Technique: XR CERVICAL SPINE 4-5 VIEWS including AP, lateral, flexion and extension views of the cervical spine. Comparison: Cervical spine MRI 04/02/2022 Findings: The cervical lordosis is straightened. Listhesis does not change between flexion and extension. Vertebral body height is maintained. No suspicious lytic or sclerotic lesion. Procedure Note Rey Pereyra MD - 06/19/2022 06/18/2022 10:30 AM Clinical History/Comments: Cervical radiculopathy. Technique: XR CERVICAL SPINE 4-5 VIEWS including AP, lateral, flexion and extensionviews of the cervical spine. Comparison: Cervical spine MRI 04/02/2022 Findings: The cervical lordosis is straightened. Listhesis does not change betweenflexion and extension. Vertebral body height is maintained. No suspicious lytic or scleroticlesion. IMPRESSION No dynamic instability. Madiha Hurtado NP IMG DIAGNOSTIC IMAGING ORDERABLES documented in this encounter Visit Diagnoses Diagnosis Cervical radiculopathy- Primary Brachial neuritis or radiculitis nos Cervical radiculopathy Brachial neuritis or radiculitis nos Lumbar radiculopathy Thoracic or lumbosacral neuritis or radiculitis, unspecified documented in this encounter Care Teams Long Haul Truck Driver Relationship Specialty Start Date End Date Galilea Mars NP [address] [place] [phone] PCP - General 09/16/21 documented as of this encounter
--- OUTSIDE RECORDS SUMMARY | 2023-10-19 15:33 | XMS_ITS | Encounter Summary ---
Author Organization [facility] Address [address] [place] [address] Care Team Providers Care Welder Fitter Gas Name Role Phone Galilea Mars NP Primary Care Provider [phone] Reason for Referral * (Routine/Next Available) - Receiving Office to Obtain Authorization Specialty Diagnoses / Procedures Referred By Contac t Referred To Contact Procedures MR OUTSIDE IMAGES LUMBAR SPINE Imaging, External Referral ID Status Reason Start Date Expiration Date Visits Requested Visits Authorized [id number] Receiving Office to Obtain Authorization 07/19/2023 1 1 Reason for Visit * (Routine/Next Available) - Receiving Office to Obtain Authorization Specialty Diagnoses / Procedures Referred By Contac t Referred To Contact Procedures MR OUTSIDE IMAGES LUMBAR SPINE Imaging, External Referral ID Status Reason Start Date Expiration Date Visits Requested Visits Authorized [id number] Receiving Office to Obtain Authorization 07/19/2023 1 1 Encounter Details Date Type Department Care Team (Latest Contact Info) Description 07/16/2023 - 07/16/2023 23:59 EDT Hospital Encounter [facility] Secondary [place] Discharge Disposition: Home or Self Care Social History Tobacco Use Types Packs/Day Years [...] place to sleep or slept in a usp (including now)? No 06/21/2022 Interpersonal Safety Answer [...] Master's degree (e.g., MA, MS, Joanne, MEd, PHOTOGRAPHIC DOUBLE, LILA) 06/19/2020 Sex and Gender Information Value Date Recorded Sex Assigned at Female 10/08/2022 13:26 EDT Gender Identity Female 07/29/2021 16:35 EDT Sexual Orientation Straight 10/08/2022 13 :26 EDT documented as of this encounter Medications at Time of Discharge Medication Sig Dispensed Refills Start Date End Date acetaminophen (TYLENOL) 500 mg tablet Take 2 Tablets by mouth every 6 hours as needed for Pain. 09/03/2021 cyanocobalamin (VITAMIN B-12) 500 mcg tablet Take 2 Tablets by mouth daily. levonorgestreL (MIRENA) 20 mcg/24 hours (8 yrs) 52 mg IUD 1 Each by intrauterine route Once. 2016 Multivitamins with Minerals tablet tablet Take 1 Tablet by mouth daily. sertraline (ZOLOFT) 100 mg tablet Take 1 Tablet by mouth daily. 90 Tablet 3 11/05/2022 gabapentin (NEURONTIN) 300 mg capsule Take 1 Capsule by mouth 2 times daily. 180 Capsule 1 07/03/2022 08/18/2023 methylPREDNISolone (MEDROL, SHANTE,) 4 mg tabletIndications:Le ft foot drop follow package directions 1 Each 07/15/2023 09/15/2023 documented as of this encounter Discharge Disposition Disposition Code Departure Means Destination Home or Self Care documented in this encounter Plan of Treatment Upcoming Encounters Date Type Department Care Team (Late st Contact Info) Description 10/22/2023 13:25 EDT Hospital Encounter [facility] Main [place] [address] [place] [address] [phone] Walker Pride MD [address] [place] [address], [address] [place] [phone] 10/22/2023 13:25 EDT - 10/22/2023 17:00 EDT Surgery [facility] OR [address] [place] [address] [phone] Walker Pride MD [address] [place] [address], [address] [place] [phone] Left L34 decompression, redo left L45 decompression [[id number] (CPT??)] 11/22/2023 10:00 EDT Post-op Visit [facility] Neurosurgery - [address] [phone] Madiha Hurtado NP [address] [place] [address], [address] [place] [phone] Scheduled Procedures Name Priority Associated Diagnoses Date/Ti me LAMINECTOMY, SPINE, LUMBAR, 1 LEVEL, WITH FORAMINOTOMY OR FACETECTOMY Lumbar radiculopathy 10/22/2023 13:25 EDT LAMINECTOMY, SPINE, WITH FACETECTOMY AND FORAMINOTOMY, ADDITIONAL LEVEL FOLLOWING INITIAL LEVEL Lumbar radiculopathy 10/22/2023 13:25 EDT documented as of this encounter Procedures Procedure Name Priority Date/Time Associated Diagnosis Comments MR OUTSIDE IMAGES LUMBAR SPINE Routine 07/16/2023 9:55 EDT documented in this encounter Results * MR OUTSIDE IMAGES LUMBAR SPINE (07/16/2023 9:55 EDT) Narrative 07/19/2023 9:55 EDT This is a non-reportable exam. External Imaging IMG OTHER IMAGING OR DERABLES documented in this encounter Visit Diagnoses Not on filedocumented in this encounter Care Teams Welder Fitter Gas Relationship Specialty Start Date End Date Galilea Mars NP [address] [place] [phone] PCP - General 09/16/21 documented as of this encounter
--- OUTSIDE RECORDS SUMMARY | 2023-10-19 15:33 | XMS_ITS | Encounter Summary ---
Author Organization [facility] Address [address] [place] [address] Care Team Providers Care Chain Maker Name Role Phone Galilea Mars NP Primary Care Provider [phone] Encounter Details Date Type Department Care Team (Latest Contact Info) Description 06/18/2022 Travel Social History Tobacco Use Types Packs/Day Years [...] place to sleep or slept in a fci (including now)? No 05/17/2022 Interpersonal Safety Answer Date Record ed How often does anyone, jason sanchez family, hit, punch or physically hurt you? Never 05/17/2022 How often does anyone, jason sanchez family, insult, scream, curse or threaten to hurt you? Never 05/17/2022 Education Answer Date Recorded What is the highest level of school you have completed or the highest degree you have received? Master's degree (e.g., MA, MS, Joanne, MEd, HAT TRIMMER, LILA) 06/19/2020 Sex and Gender Information Value [...] 11:52 EDT documented as of this encounter Plan of Treatment Upcoming Encounters Date Type Department Care Team (Late st Contact Info) Description 10/22/2023 13:25 EDT Hospital Encounter [facility] OR [address] [place] [address] [phone] Walker Pride MD [address] [place] [phone] 10/22/2023 13:25 EDT - 10/22/2023 17:00 EDT Surgery [facility] OR [address] [place] [address] [phone] Walker Pride MD [address] [place] [address] [phone] Left L34 decompression, redo left L45 decompression [[id number] (CPT??)] 11/22/2023 10:00 EDT Post-op Visit [facility] Neurosurgery - [address] [phone] Madiha Hurtado NP [address] [place] [phone] Scheduled Procedures Name Priority Associated Diagnoses Date/Ti me LAMINECTOMY, SPINE, LUMBAR, 1 LEVEL, WITH FORAMINOTOMY OR FACETECTOMY Lumbar radiculopathy 10/22/2023 13:25 EDT LAMINECTOMY, SPINE, WITH FACETECTOMY AND FORAMINOTOMY, ADDITIONAL LEVEL FOLLOWING INITIAL LEVEL Lumbar radiculopathy 10/22/2023 13:25 EDT documented as of this encounter Visit Diagnoses Not on filedocumented in this encounter Care Teams Chain Maker Relationship Specialty Start Date End Date Galilea Mars, ROUTE SALESPERSON [address] [place] [phone] PCP - General 09/16/21 documented as of this encounter
--- OUTSIDE RECORDS SUMMARY | 2023-10-19 15:33 | XMS_ITS | Encounter Summary ---
Author Organization [facility] Address [address] [place] [address] Care Team Providers Care Sign Manufacturer Name Role Phone Galilea Mars NP Primary Care Provider [phone] Reason for Referral * Consult (Urgent) - Specialty Report Received Specialty Diagnoses / Procedures Referred By [facility] Referred To Contact Neurosurgery Diagnoses DDD (degenerative disc disease), lumbar Galilea Mars NP [address] [place] [phone] Walker Pride MD 111 [facility], [address] [place] [phone] Referral ID Status Reason Start Date Expiration Date Visits Requested Visits Authorized [id number] Specialty Report Received Specialty Services Required 07/19/2023 1 1 Question Answer Reason for Request: recurrence of left foot drop significantly altering gait; see scanned MRI results. Encounter Details Date Type Department Care Team (Late st Contact Info) Description 07/19/2023 Orders Only [facility] Adult Primary Care - [place] [address] [place] [address] Galilea Mars NP [address] [place] [phone] DDD (degenerative disc disease), lumbar (Primary Dx) Social History Tobacco Use Types [...] place to sleep or slept in a assisted (including now)? No 06/21/2022 Interpersonal Safety Answer Date Record ed How often does anyone, jason sanchez family, hit, punch or physically hurt you? Never 06/21/2022 How often does anyone, inclnadia sanchez family, insult, scream, curse or threaten to hurt you? Never 06/21/2022 Education Answer Date Recorded What is the highest level of school you have completed or the highest degree you have received? Master's degree (e.g., MA, MS, Joanne, MEd, FUEL INJECTION SERVICER, LILA) 06/19/2020 Sex and Gender Information Value Date Recorded Sex Assigned at Female 10/08/2022 13:26 EDT Gender Identity Female 07/29/2021 16:35 EDT Sexual Orientation Straight 10/08/2022 13 :26 EDT documented as of this encounter Progress Notes * Galilea Mars NP - 07/19/2023 1412 EDT 07/19/23 Called patient and left message with brief review of MRI. Will place order for neurosurgery (Dr Pride) given residual/recurrent disc bulge abutting left L5 nerve root with mild/moderate narrowed spinal canal. Galilea Mars NP 07/19/2023 14:14 documented in this encounter Plan of Treatment Upcoming Encounters Date Type Department Care Team (Late st Contact Info) Description 10/22/2023 13:25 EDT Hospital Encounter [facility] Main [place] [address] [place] [address] [phone] Walker Pride MD [address] [place] [address], [facility] [address] [place] [phone] 10/22/2023 13:25 EDT - 10/22/2023 17:00 EDT Surgery [facility] OR [address] [place] [address] [phone] Walker Pride MD [address] [place] [address], [facility] [address] [place] [phone] Left L34 decompression, redo left L45 decompression [[id number] (CPT??)] 11/22/2023 10:00 EDT Post-op Visit [facility] Neurosurgery - [address] [phone] Madiha Hurtado NP [address] [place] [address], [facility] [address] [place] [phone] Scheduled Procedures Name Priority Associated Diagnoses Date/Ti me LAMINECTOMY, SPINE, LUMBAR, 1 LEVEL, WITH FORAMINOTOMY OR FACETECTOMY Lumbar radiculopathy 10/22/2023 13:25 EDT LAMINECTOMY, SPINE, WITH FACETECTOMY AND FORAMINOTOMY, ADDITIONAL LEVEL FOLLOWING INITIAL LEVEL Lumbar radiculopathy 10/22/2023 13:25 EDT Scheduled Referrals Name Type Priority Associated Diagnoses Order Schedule AMB CONS/FOLLOW UP NEUROSURGERY Outpatient Referral Urgent DDD (degenerative disc disease), lumbar Expected: 07/21/2023 (Approximate), Expires: 07/18/2024 documented as of this encounter Visit Diagnoses Diagnosis DDD (degenerative disc disease), lumbar- Primary Degeneration of lumbar or lumbosacral intervertebral disc Lumbar radiculopathy Thoracic or lumbosacral neuritis or radiculitis, unspecified documented in this encounter Care Teams Sign Manufacturer Relationship Specialty Start Date End Date Galilea Mars NP [address] [place] [phone] PCP - General 09/16/21 documented as of this encounter
--- OUTSIDE RECORDS SUMMARY | 2023-10-19 15:33 | XMS_ITS | Encounter Summary ---
Author Organization [facility] Address [address] [place] [address] Care Team Providers Care Realtime Captioner Name Role Phone Galilea Mars NP Primary Care Provider [phone] Reason for Visit * Reason Onset Date Comments Lead Coater Message 07/15/2023 Encounter Details Date Type Department Care Team (Late st Contact Info) Description 07/15/2023 Telephone [facility] Adult Primary Care - [place] [address] [place] [address] Ian Mendez MD [address] [place] [address] Lead Coater Message Social History Tobacco Use Types Packs/Day Years [...] place to sleep or slept in a retirement (including now)? No 06/21/2022 Interpersonal Safety Answer [...] degree you have received? Master's degree (e.g., QUINN, MS, Joanne, Arias, SUPERVISOR MOLD SHOP, LILA) 06/19/2020 Sex and Gender Information Value Date Recorded Sex Assigned at Female 10/08/2022 13:26 EDT Gender Identity Female 07/29/2021 16:35 EDT Sexual Orientation Straight 10/08/2022 13 :26 EDT documented as of this encounter Ordered Prescriptions Prescription Sig Dispensed Refills Start Date End Da te LORazepam (ATIVAN) 0.5 mg tablet Take 1 Tablet by mouth 1 (one) time for 1 dose. Prior to MRI Daily Max: 0.5 mg 1 Tablet 07/15/2023 07/15/2023 documented in this encounter Miscellaneous Notes * Telephone Encounter - Ian Mendez MD - 07/15/20232001 EDT PC from pt - has MRI in AM (8 AM) at [facility]. PCP called in lorazepam, but local phcy closed before she could garbage pick up man Rx. Discussed options, and Rx sent to [facility] (open at 0730 in AM) documented in this encounter Plan of Treatment Upcoming Encounters Date Type Department Care Team (Late st Contact Info) Description 10/22/2023 13:25 EDT Hospital Encounter [facility] OR [address] [place] [address] [phone] Walker Pride MD [address] [place] [address] 5 [place] [phone] 10/22/2023 13:25 EDT - 10/22/2023 17:00 EDT Surgery [facility] OR [address] [place] [address] [phone] Walker Pride MD [address] [place] [address] 5 [place] [phone] Left L34 decompression, redo left L45 decompression [47891 (CPT??)] 11/22/2023 10:00 EDT Post-op Visit [facility] Neurosurgery - [facility] [address], [place] [phone] Madiha Hurtado NP 111 [facility], Level 5 [place] [phone] Scheduled Procedures Name Priority Associated Diagnoses Date/Ti me LAMINECTOMY, SPINE, LUMBAR, 1 LEVEL, WITH FORAMINOTOMY OR FACETECTOMY Lumbar radiculopathy 10/22/2023 13:25 EDT LAMINECTOMY, SPINE, WITH FACETECTOMY AND FORAMINOTOMY, ADDITIONAL LEVEL FOLLOWING INITIAL LEVEL Lumbar radiculopathy 10/22/2023 13:25 EDT documented as of this encounter Visit Diagnoses Not on filedocumented in this encounter Discontinued Medications Medication Sig Discontinue Reason Start Date End Da te LORazepam (ATIVAN) 0.5 mg tablet Take 1 Tablet by mouth 1 (one) time for 1 dose. Prior to MRI Daily Max: 0.5 mg Reorder 07/15/2023 07/15/2023 documented as of this encounter Care Teams Realtime Captioner Relationship Specialty Start Date End Date Galilea Mars NP [address] [place] [phone] PCP - General 09/16/21 documented as of this encounter
--- OUTSIDE RECORDS SUMMARY | 2023-10-19 15:33 | XMS_ITS | Encounter Summary ---
Author Organization [facility] Address [address] [place] [address] Care Team Providers Care Culinary Arts Teacher Name Role Phone Galilea Mars NP Primary Care Provider [phone] Reason for Visit * Reason Comments Follow-up Cervical radiculopat hy Encounter Details Date Type Department Care Team (Late st Contact Info) Description 10/15/2022 11:00 EDT Office Visit [facility] Neurosurgery - [address] [phone] Walker Pride MD 111 [facility], Level 5 [place] [phone] Cervical spondylosis (Primary Dx) Social History Tobacco Use Types [...] slept in a fci (including now)? No 06/21/2022 Interpersonal Safety Answer [...] Master's degree (e.g., MA, MS, Joanne, MEd, MANAGER SUPPLIER, LILA) 06/19/2020 Sex and Gender Information Value Date Recorded Sex Assigned at Female 10/08/2022 13:26 EDT Gender Identity Female 07/29/2021 16:35 EDT Sexual Orientation Straight 10/08/2022 13 :26 EDT documented as of this encounter Last Filed Vital Signs Vital Sign Reading Time Taken Comments Blood Pressure 110/70 10/15/2022 1103 EDT Pulse 85 10/15/2022 1103 EDT Temperature - - Respiratory Rate 16 10/15/2022 1103 EDT Oxygen Saturation 99% 10/15/2022 1103 EDT Inhaled Oxygen Concentration - - Weight 70.3 kg (155 lb) 10/15/2022 1103 EDT Height 163.9 cm (5' 4.53) 10/15/2022 1103 EDT Body Mass Index 26.17 10/15/2022 1103 EDT documented in this encounter Progress Notes * Walker Pride MD - 10/15/2022 1100 EDT [facility] NEUROLOGICAL SURGERY PROGRESS / FOLLOWUP NOTE - 10/15/2022 SUBJECTIVE: Ms 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 Normal neurologic exam without complaints or physical exam consistent with myelopathy who returns today for followup. Shestates she does have occasional episodes of her neck locking up. She treats this with nonsteroidal and heat and it goes away. She has not had any episodes of numbness in her arms in the past month. Previous to that, they were only occasionally and short-lived. She again denies any symptoms that could be consistent with cervical myelopathy. We have discussed these again today. She did have an episode last week after walking to the beach of severe left leg pain down the back of her leg, which is now resolved. She was quite nervous about this given her history of lumbar disk herniation and lumbar microdiskectomy. The distribution was different and more in the back of her leg than the side of her leg. ASSESSMENT AND PLAN: I have counseled her that she may limit her activity to some extent over the next month, but it is not unusual for radicular pains to resolve themselves. I have not scheduled herfor further followup, but I have again counseled her on the signs and symptoms of cervical myelopathy. If she were to develop these, she should call us immediately. Walker Pride MD / Dictation ID: [id number] cc: * Walker Pride MD - 10/15/2022 1100 EDT This office note has been dictated. documented in this encounter Plan of Treatment Upcoming Encounters Date Type Department Care Team (Late st Contact Info) Description 10/22/2023 13:25 EDT Hospital Encounter [facility] OR [address] [place] [address] [phone] Walker Pride MD [address] [place] [phone] 10/22/2023 13:25 EDT - 10/22/2023 17:00 EDT Surgery [facility] OR [address] [place] [address] [phone] Walker Pride MD [address] [place] [phone] Left L34 decompression, redo left L45 decompression [[id number] (CPT??)] 11/22/2023 10:00 EDT Post-op Visit [facility] Neurosurgery - [facility] [address] [place], [place] [phone] Madiha Hurtado NP 111 [facility], [facility], Level [address] [place] [phone] Scheduled Procedures Name Priority Associated Diagnoses Date/Ti me LAMINECTOMY, SPINE, LUMBAR, 1 LEVEL, WITH FORAMINOTOMY OR FACETECTOMY Lumbar radiculopathy 10/22/2023 13:25 EDT LAMINECTOMY, SPINE, WITH FACETECTOMY AND FORAMINOTOMY, ADDITIONAL LEVEL FOLLOWING INITIAL LEVEL Lumbar radiculopathy 10/22/2023 13:25 EDT documented as of this encounter Visit Diagnoses Diagnosis Cervical spondylosis- Primary Cervical spondylosis without myelopathy Lumbar radiculopathy Thoracic or lumbosacral neuritis or radiculitis, unspecified documented in this encounter Care Teams Culinary Arts Teacher Relationship Specialty Start Date End Date Galilea Mars NP [address] [place] [phone] PCP - General 09/16/21 documented as of this encounter
--- OUTSIDE RECORDS SUMMARY | 2023-10-19 15:33 | XMS_ITS | Encounter Summary ---
Author Organization [facility] Address [address] [place] [address] Care Team Providers Care Fur Stretcher Name Role Phone Galilea Mars NP Primary Care Provider [phone] Reason for Referral * Radiology Services (Routine/Next Available) - Authorization Not Required Specialty Diagnoses / Procedures Referred By Contac t Referred To Contact Diagnoses Lumbar radiculopathy Procedures XR LUMBAR SPINE 4 OR MORE VIEWS Madiha Hurtado NP [address] [place] [phone] [facility] Referral ID Status Reason Start Date Expiration Date Visits Requested Visits Authorized [id number] Authorization Not Required 06/27/2021 1 1 Reason for Visit * Radiology Services (Routine/Next Available) - Authorization Not Required Specialty Diagnoses / Procedures Referred By Contac t Referred To Contact Diagnoses Lumbar radiculopathy Procedures XR LUMBAR SPINE 4 OR MORE VIEWS Madiha Hurtado NP [address] [phone] [facility] Referral ID Status Reason Start Date Expiration Date Visits Requested Visits Authorized [id number] Authorization Not Required 06/27/2021 1 1 Encounter Details Date Type Department Care Team (Latest Contact Info) Description 06/18/2022 10:28 EDT - 06/18/2022 23:59 EDT [facility] - [address] [address] Lumbar radiculopathy Discharge Disposition: Home or Self Care Social [...] place to sleep or slept in a mcc (including now)? No 05/17/2022 Interpersonal Safety Answer [...] Master's degree (e.g., MA, MS, Joanne, MEd, TUBE BALANCER, LILA) 06/19/2020 Sex and Gender Information Value [...] 11:52 EDT documented as of this encounter Medications [...] tablet Take 1 Tablet by mouth daily. baclofen (LIORESAL) 10 mg tablet Take 10 mg by mouth 2 times daily. 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 90 Tab 3 08/21/2020 09/02/2022 sertraline (ZOLOFT) 100 mg tablet Take 1 Tablet by mouth daily. 90 Tablet 3 08/26/2021 11/05/2022 documented as of this encounter Discharge Disposition Disposition Code Departure Means Destination Home or Self Care documented in this encounter Plan of Treatment Upcoming Encounters Date Type Department Care Team (Late st Contact Info) Description 10/22/2023 13:25 EDT Hospital Encounter [facility] OR [address] [place] [address] [phone] Walker Pride MD [address] [place] [phone] 10/22/2023 13:25 EDT - 10/22/2023 17:00 EDT Surgery [facility] OR [address] [place] [address] [phone] Walker Pride MD [address] [place] [phone] Left L34 decompression, redo left L45 decompression [[id number] (CPT??)] 11/22/2023 10:00 EDT Post-op Visit [facility] Neurosurgery - [address] [phone] Madiha Hurtado NP 111 [facility], Level [address] [place] [phone] Scheduled Procedures Name Priority Associated Diagnoses Date/Ti me LAMINECTOMY, SPINE, LUMBAR, 1 LEVEL, WITH FORAMINOTOMY OR FACETECTOMY Lumbar radiculopathy 10/22/2023 13:25 EDT LAMINECTOMY, SPINE, WITH FACETECTOMY AND FORAMINOTOMY, ADDITIONAL LEVEL FOLLOWING INITIAL LEVEL Lumbar radiculopathy 10/22/2023 13:25 EDT documented as of this encounter Procedures Procedure Name Priority Date/Time Associated Diagnosis Comments XR LUMBAR SPINE 4+ VIEWS Routine 06/18/2022 10:40 EDT Lumbar radiculopathy documented in this encounter Results * XR LUMBAR SPINE 4 OR MORE VIEWS (06/18/2022 10:40 EDT) Anatomical Region Laterality Modality Computed Radiogr aphy 06/19/2022 11:0 5 EDT Impressions 06/19/2022 11:05 EDT Findings/Impression: Normal alignment on the AP and lateral views. No significant dynamic instability. Vertebral body heights and disc heights are normal. No severe facet arthropathy. Narrative 06/19/2022 11:05 EDT XR LUMBAR SPINE 4+ VIEWS ??06/18/2022 10:35 AM Clinical History/Comments: lumbar radiculopathy. Technique: AP and lateral views of the lumbar spine. Flexion and extension views of the lumbar spine. Comparison: Lumbar radiographs July 30, 2021 Procedure Note Miguel Ángel Nino MD - 06/19/2022 XR LUMBAR SPINE 4+ VIEWS 06/18/2022 10:35 AM Clinical History/Comments: lumbar radiculopathy. Technique: AP and lateral views of the lumbar spine. Flexion and extension views ofthe lumbar spine. Comparison: Lumbar radiographs July 30, 2021 IMPRESSION Findings/Impression: Normal alignment on the AP and lateral views. No significant dynamicinstability. Vertebral body heights and disc heights are normal. No severefacet arthropathy. Madiha Karges Hurtado TANK HOUSE OPERATOR HELPER IMG DIAGNOSTIC IMAGING ORDERABLES documented in this encounter Visit Diagnoses Diagnosis Lumbar radiculopathy Thoracic or lumbosacral neuritis or radiculitis, unspecified Lumbar radiculopathy Thoracic or lumbosacral neuritis or radiculitis, unspecified documented in this encounter Care Teams Fur Stretcher Relationship Specialty Start Date End Date Galilea Mars NP [address] [place] [phone] PCP - General 09/16/21 documented as of this encounter
--- OUTSIDE RECORDS SUMMARY | 2023-10-19 15:33 | XMS_ITS | Encounter Summary ---
Author Organization [facility] Address [address] [place] [address] Care Team Providers Care Local Company Tanker Driver Name Role Phone Galilea Mars NP Primary Care Provider [phone] Reason for Visit * Reason Onset Date Comments Appointment Related 08/05/2023 Encounter Details Date Type Department Care Team (Late st Contact Info) Description 08/05/2023 Telephone [facility] Neurosurgery - [facility] [address] [place], [place] [phone] Walker Pride MD 111 [facility], Level [address] [place] [phone] Appointment Related Social History Tobacco Use Types Packs/Day Years [...] Master's degree (e.g., MA, MS, Joanne, MEd, OPHTHALMIC SURGICAL ASSISTANT, LILA) 06/19/2020 Sex and Gender Information [...] encounter Miscellaneous Notes * Telephone Encounter - Jael Knight - 08/05/2023 1618 EDT Images from the original note were not included. Called and spoke to Teri and gave her the details of her MRI and follow-up with Dr. Pride: documented in this encounter Plan of Treatment Upcoming Encounters Date Type Department Care Team (Late st Contact Info) Description 10/22/2023 13:25 EDT Hospital Encounter [facility] OR [address] [place] [phone] Walker Pride MD [address] [place] [address], [address] [place] [phone] 10/22/2023 13:25 EDT - 10/22/2023 17:00 EDT Surgery [facility] OR [address] [place] [phone] Walker Pride MD 111 [facility], Level [address] [place] [phone] Left L34 decompression, redo left L45 decompression [[id number] (CPT??)] 11/22/2023 10:00 EDT Post-op Visit [facility] Neurosurgery - [facility] [address] [place] [address] Madiha Hurtado NP 111 [facility], Level [address] [place] [phone] Scheduled Procedures Name Priority Associated Diagnoses Date/Ti me LAMINECTOMY, SPINE, LUMBAR, 1 LEVEL, WITH FORAMINOTOMY OR FACETECTOMY Lumbar radiculopathy 10/22/2023 13:25 EDT LAMINECTOMY, SPINE, WITH FACETECTOMY AND FORAMINOTOMY, ADDITIONAL LEVEL FOLLOWING INITIAL LEVEL Lumbar radiculopathy 10/22/2023 13:25 EDT documented as of this encounter Visit Diagnoses Not on filedocumented in this encounter Care Teams Local Company Tanker Driver Relationship Specialty Start Date End Date Galilea aMrs NP [address] [place] [phone] PCP - General 09/16/21 documented as of this encounter
--- OUTSIDE RECORDS SUMMARY | 2023-10-19 15:33 | XMS_ITS | Encounter Summary ---
Author Organization [facility] Address [address] [place] [address] Care Team Providers Care Welder Shielded Metal Arc Name Role Phone Galilea Mars CLINICAL TRAINING COORDINATOR Primary Care Provider [phone] Reason for Visit * Reason Onset Date Comments Results 07/19/2023 Encounter Details Date Type Department Care Team (Late st Contact Info) Description 07/19/2023 Telephone [facility] Adult Primary Care - [place] [address] [place] [address] Galilea Mars, KARIME [address] [place] [phone] Results Social History Tobacco Use Types Packs/Day Years [...] Master's degree (e.g., MA, MS, Joanne, MEd, HOSPITAL TRAY SERVICE WORKER, LILA) 06/19/2020 Sex and Gender Information Value Date Recorded Sex Assigned at Female 10/08/2022 13:26 EDT Gender Identity Female 07/29/2021 16:35 EDT Sexual Orientation Straight 10/08/2022 13 :26 EDT documented as of this encounter Miscellaneous Notes * Telephone Encounter - Gudelia Ann - 07/19/2023 2246 EDT Received 5.3.24 MRI lumber spine c/s contrast report [facility]. To provider for review. documented in this encounter Plan of Treatment Upcoming Encounters Date Type Department Care Team (Late st Contact Info) Description 10/22/2023 13:25 EDT Hospital Encounter [facility] OR [address] [place] [address] [phone] Walker Pride MD [address] [place] [phone] 10/22/2023 13:25 EDT - 10/22/2023 17:00 EDT Surgery [facility] OR [address] [place] [address] [phone] Walker Pride MD [address] [place] [phone] Left L34 decompression, redo left L45 decompression [[id number] (CPT??)] 11/22/2023 10:00 EDT Post-op Visit [facility] Neurosurgery - [address] [phone] Madiha Hurtado, KARIME 111 [facility], Level [address] [place] [phone] Scheduled Procedures Name Priority Associated Diagnoses Date/Ti me LAMINECTOMY, SPINE, LUMBAR, 1 LEVEL, WITH FORAMINOTOMY OR FACETECTOMY Lumbar radiculopathy 10/22/2023 13:25 EDT LAMINECTOMY, SPINE, WITH FACETECTOMY AND FORAMINOTOMY, ADDITIONAL LEVEL FOLLOWING INITIAL LEVEL Lumbar radiculopathy 10/22/2023 13:25 EDT documented as of this encounter Visit Diagnoses Not on filedocumented in this encounter Care Teams Welder Shielded Metal Arc Relationship Specialty Start Date End Date Galilea Mars NP [address] [place] [phone] PCP - General 09/16/21 documented as of this encounter
--- OUTSIDE RECORDS SUMMARY | 2023-10-19 15:33 | XMS_ITS | Encounter Summary ---
Author Organization [facility] Address [address] [place] [address] Care Team Providers Care Flight Communications Specialist Name Role Phone Galilea Mars NP Primary Care Provider Encounter Details Date Type Department Care Team (Late st Contact Info) Description 08/03/2023 Orders Only [facility] Radiology - [place] [address] [place], [place] 1260[address] Jesus Glover MD [address] [place], [place] [phone] Social History Tobacco Use Types Packs/Day Years [...] Master's degree (e.g., MA, MS, Joanne, MEd, DEPARTMENT EDITOR, LILA) 06/19/2020 Sex and Gender Information Value [...] Info) Description 10/22/2023 13:25 EDT Hospital Encounter [facility] OR [address] [place] [address] [phone] Walker Pride MD [address] [place] [phone] 10/22/2023 13:25 EDT - 10/22/2023 17:00 EDT Surgery [facility] OR [address] [place] [address] [phone] Walker Pride MD [address] [place] [phone] Left L34 decompression, redo left L45 decompression [[id number] (CPT??)] 11/22/2023 10:00 EDT Post-op Visit [facility] Neurosurgery - [address] [phone] Madiha Hurtado NP [address] [place] [address] [address] [place] [phone] Scheduled Procedures Name Priority Associated Diagnoses Date/Ti me LAMINECTOMY, SPINE, LUMBAR, 1 LEVEL, WITH FORAMINOTOMY OR FACETECTOMY Lumbar radiculopathy 10/22/2023 13:25 EDT LAMINECTOMY, SPINE, WITH FACETECTOMY AND FORAMINOTOMY, ADDITIONAL LEVEL FOLLOWING INITIAL LEVEL Lumbar radiculopathy 10/22/2023 13:25 EDT documented as of this encounter Visit Diagnoses Not on filedocumented in this encounter Care Teams Flight Communications Specialist Relationship Specialty Start Date End Date Galilea Mars, KARIME [address] [place] [phone] PCP - General 09/16/21 documented as of this encounter
--- OUTSIDE RECORDS SUMMARY | 2023-10-19 15:33 | XMS_ITS | Encounter Summary ---
Author Organization [facility] Address [address] [place] [address] Care Team Providers Care Can Piler Name Role Phone Galilea Mars NP Primary Care Provider [phone] Reason for Visit * Reason Onset Date Comments Appointment Related 04/17/2022 Encounter Details Date Type Department Care Team (Late st Contact Info) Description 04/17/2022 Telephone [facility] Neurosurgery - [facility] [address] [place], [place] [phone] Walker Pride MD 111 [facility], Level [address] [place] [phone] Appointment Related Social History Tobacco [...] slept in a penitentiary (including now)? No 09/30/2021 Interpersonal Safety Answer Date Record ed How often does anyone, inclu ding family, hit, punch or physically hurt you? Never 09/30/2021 How often does anyone, inclu ding family, insult, scream, curse or threaten to hurt you? Never 09/30/2021 Education Answer Date Recorded What is the highest level of school you have completed or the highest degree you have received? Master's degree (e.g., MA, MS, Joanne, MEd, REAL ESTATE APPRAISER SUPERVISOR, LILA) 06/19/2020 Sex and Gender Information Value Date Recorded Sex Assigned at Female 10/08/2022 13:26 EDT Gender Identity Female 07/29/2021 16:35 EDT Sexual Orientation Straight 10/08/2022 13 :26 EDT documented as of this encounter Miscellaneous Notes * Telephone Encounter - Jael Knight - 04/17/2022 1045 EST Images from the original note were not included. Called and LM for Teri with the details of an appointment with Dr. Pride: documented in this encounter Plan of Treatment Upcoming Encounters Date Type Department Care Team (Late st Contact Info) Description 10/22/2023 13:25 EDT Hospital Encounter [facility] OR [address] [place] [address] [phone] Walker Pride MD [address] [place] [phone] 10/22/2023 13:25 EDT - 10/22/2023 17:00 EDT Surgery [facility] OR [address] [place] [address] [phone] Walker Pride MD [address] [place] [phone] Left L34 decompression, redo left L45 decompression [[id number] (CPT??)] 11/22/2023 10:00 EDT Post-op Visit [facility] Neurosurgery - [address] [phone] Madiha Hurtado NP 111 [facility], Level [address] [place] [phone] Scheduled Procedures Name Priority Associated Diagnoses Date/Ti me LAMINECTOMY, SPINE, LUMBAR, 1 LEVEL, WITH FORAMINOTOMY OR FACETECTOMY Lumbar radiculopathy 10/22/2023 13:25 EDT LAMINECTOMY, SPINE, WITH FACETECTOMY AND FORAMINOTOMY, ADDITIONAL LEVEL FOLLOWING INITIAL LEVEL Lumbar radiculopathy 10/22/2023 13:25 EDT documented as of this encounter Visit Diagnoses Not on filedocumented in this encounter Care Teams Can Piler Relationship Specialty Start Date End Date Galilea Mars NP [address] [place] [phone] PCP - General 09/16/21 documented as of this encounter
--- OUTSIDE RECORDS SUMMARY | 2023-10-19 15:33 | XMS_ITS | Encounter Summary ---
Author Organization [facility] Address [address] [place] [address] Care Team Providers Care Civil Engineering Project Designer Name Role Phone Galilea Mars ORACLE FINANCIALS CONSULTANT Primary Care Provider [phone] Reason for Visit * Reason Onset Date Comments Medications Refill 08/18/2023 Encounter Details Date Type Department Care Team (Late st Contact Info) Description 08/18/2023 Refill [facility] - [place] [address] [place] [address] Galilea Mars, ORACLE FINANCIALS CONSULTANT [address] [place] [address] Medications Refill Social History Tobacco Use Types [...] Master's degree (e.g., QUINN, MS, Joanne, Arias, YARN MERCERIZER OPERATOR HELPER, LILA) 06/19/2020 Sex and Gender Information [...] No 08/03/2023 documented as of this encounter Ordered Prescriptions Prescription Sig Dispensed Refills Start Date End Da te gabapentin (NEURONTIN) 300 mg capsule Take 1 Capsule by mouth 2 times daily. 180 Capsule 1 08/19/2023 documented in this encounter Miscellaneous Notes * Telephone Encounter - Papi Loco RN - 08/19/2023 0957 EDT Requested Prescriptions Pending Prescriptions Disp Refills gabapentin (NEURONTIN) 300 mg capsule 180 Capsule 1 Sig: Take 1 Capsule by mouth 2 times daily. [id number] - [place], [place] - [address] [place] [address] AT SEC [facility] [address] Confirmed Pharmacy? Yes Patient out of medication? Unknown How many pills does patient have left? unknown Last Start Date On Med List: 07/03/22 Refills left? (explain exceptions requiring early refill) No Recent Visits Date Type Provider Dept 07/15/23 Office Visit Galilea Mars NP [facility] [place] [facility] 09/02/22 Office Visit Galilea Mars, KARIME [facility] [place] [facility] 07/03/22 Office Visit Galilea Mars, KARIME [facility] [place] [facility] 03/19/22 Office Visit Galilea Mars, KARIME [facility] [place] [facility] Showing recent visits within past 540 days with a meds authorizing provider and meeting all other requirements Future Appointments No visits were found meeting these conditions. Showing future appointments within next 150 days with a meds authorizing provider and meeting all other requirements Future appointment: Other - PAPI LOCO RN 08/19/2023 9:57 documented in this encounter Plan of Treatment Upcoming Encounters Date Type Department Care Team (Late st Contact Info) Description 10/22/2023 13:25 EDT Hospital Encounter [facility] OR [address] [place] [address] [phone] Walker Pride MD [address] [place] [phone] 10/22/2023 13:25 EDT - 10/22/2023 17:00 EDT Surgery [facility] OR [address] [place] [address] [phone] Walker Pride MD [address] [place] [address] [phone] Left L34 decompression, redo left L45 decompression [86336 (CPT??)] 11/22/2023 10:00 EDT Post-op Visit [facility] Neurosurgery - [address] [phone] Madiha Hurtado NP [address] [place] [phone] Scheduled Procedures Name Priority Associated Diagnoses Date/Ti me LAMINECTOMY, SPINE, LUMBAR, 1 LEVEL, WITH FORAMINOTOMY OR FACETECTOMY Lumbar radiculopathy 10/22/2023 13:25 EDT LAMINECTOMY, SPINE, WITH FACETECTOMY AND FORAMINOTOMY, ADDITIONAL LEVEL FOLLOWING INITIAL LEVEL Lumbar radiculopathy 10/22/2023 13:25 EDT documented as of this encounter Visit Diagnoses Not on filedocumented in this encounter Discontinued Medications Medication Sig Discontinue Reason Start Date End Da te gabapentin (NEURONTIN) 300 mg capsule Take 1 Capsule by mouth 2 times daily. Reorder 07/03/2022 08/18/2023 documented as of this encounter Care Teams Civil Engineering Project Designer Relationship Specialty Start Date End Date Galilea Mars, ORACLE FINANCIALS CONSULTANT [address] [place] [phone] PCP - General 09/16/21 documented as of this encounter
--- OUTSIDE RECORDS SUMMARY | 2023-10-19 15:33 | XMS_ITS | Encounter Summary ---
Author Organization [facility] Address [address] [place] [address] Care Team Providers Care Senior Electrical Designer Name Role Phone Galilea Mars NP Primary Care Provider [phone] Reason for Referral * Radiology Services (Routine/Next Available) - Authorization Not Required Specialty Diagnoses / Procedures Referred By Contac t Referred To Contact Diagnoses Lumbar radiculopathy Procedures XR LUMBAR SPINE 4+ VIEWS Madiha Hurtado NP [address] [place] [phone] [facility] Referral ID Status Reason Start Date Expiration Date Visits Requested Visits Authorized [id number] Authorization Not Required 07/19/2023 1 1 Reason for Visit * Radiology Services (Routine/Next Available) - Authorization Not Required Specialty Diagnoses / Procedures Referred By Contac t Referred To Contact Diagnoses Lumbar radiculopathy Procedures XR LUMBAR SPINE 4+ VIEWS Madiha Hurtado NP [address] [phone] [facility] Referral ID Status Reason Start Date Expiration Date Visits Requested Visits Authorized [id number] Authorization Not Required 07/19/2023 1 1 Encounter Details Date Type Department Care Team (Latest Contact Info) Description 08/03/2023 11:10 EDT - 08/03/2023 23:59 EDT Hospital Encounter [facility] [address] [place] [address] Lumbar radiculopathy Discharge Disposition: Home or Self [...] place to sleep or slept in a jail (including now)? No 06/21/2022 Interpersonal Safety Answer [...] Master's degree (e.g., MA, MS, Joanne, MEd, HARDBOARD COATING MACHINE OPERATOR, LILA) 06/19/2020 Sex and Gender [...] Info) Description 10/22/2023 13:25 EDT Hospital Encounter [facility] [place] [address] [place] [address] [phone] Walker Pride MD [address] [place] [phone] 10/22/2023 13:25 EDT - 10/22/2023 17:00 EDT Surgery [facility] [place] [address] [place] [address] [phone] Walker Pride MD [address] [place] [address] [phone] Left L34 decompression, redo left L45 decompression [[id number] (CPT??)] 11/22/2023 10:00 EDT Post-op Visit [facility] Neurosurgery - [address] [address] Madiha Hurtado NP [address] [place] [phone] Scheduled Procedures Name Priority Associated Diagnoses Date/Ti me LAMINECTOMY, SPINE, LUMBAR, 1 LEVEL, WITH FORAMINOTOMY OR FACETECTOMY Lumbar radiculopathy 10/22/2023 13:25 EDT LAMINECTOMY, SPINE, WITH FACETECTOMY AND FORAMINOTOMY, ADDITIONAL LEVEL FOLLOWING INITIAL LEVEL Lumbar radiculopathy 10/22/2023 13:25 EDT documented as of this encounter Procedures Procedure Name Priority Date/Time Associated Diagnosis Comments XR LUMBAR SPINE 4+ VIEWS Routine 08/03/2023 11:22 EDT Lumbar radiculopathy documented in this encounter Results * XR LUMBAR SPINE 4+ VIEWS (08/03/2023 11:22 EDT) Anatomical Region Laterality Modality Computed Radiogr aphy 08/04/2023 10:5 2 EDT Impressions 08/04/2023 10:52 EDT Findings/Impression: Slight retrolisthesis at L3-4 no evidence of dynamic instability. Mild intervertebral disc height loss at L4-5 and L5-S1. No new vertebral body height loss. The included soft tissues are within normal limits. [id number] Narrative 08/04/2023 10:52 EDT XR LUMBAR SPINE 4+ VIEWS ??08/03/2023 11:10 AM Clinical History/Comments: lumbar radiculopathy;M54.16:Lumbar radiculopathy. Technique: 4 views of the lumbar spine Comparison: MRI 07/16/2023; radiograph 06/18/2022 Resulting Agency Comment [id number] Procedure Note Shahzad Way MD - 08/04/2023 [...] included soft tissues are within normal limits. [id number] Madiha Hurtado NP IMG DIAGNOSTIC IMAGING ORDERABLES documented in this encounter Visit Diagnoses Diagnosis Lumbar radiculopathy Thoracic or lumbosacral neuritis or radiculitis, unspecified Lumbar radiculopathy Thoracic or lumbosacral neuritis or radiculitis, unspecified documented in this encounter Care Teams Senior Electrical Designer Relationship Specialty Start Date End Date Galilea Mars NP [address] [place] [phone] PCP - General 09/16/21 documented as of this encounter
--- OUTSIDE RECORDS SUMMARY | 2023-10-19 15:33 | XMS_ITS | Encounter Summary ---
Author Organization [facility] Address [address] [place] [address] Care Team Providers Care Data Entry Analyst Name Role Phone Galilea Mars NP Primary Care Provider [phone] Reason for Referral * Radiology Services (Routine/Next Available) - Authorization Not Required Specialty Diagnoses / Procedures Referred By Contac t Referred To Contact Diagnoses Cervical radiculopathy Procedures XR CERVICAL SPINE 4-5 VIEWS Madiha Hurtado NP [address] [phone] [facility] Referral ID Status Reason Start Date Expiration Date Visits Requested Visits Authorized [id number] Authorization Not Required 04/16/2022 1 1 Reason for Visit * Radiology Services (Routine/Next Available) - Authorization Not Required Specialty Diagnoses / Procedures Referred By Contac t Referred To Contact Diagnoses Cervical radiculopathy Procedures XR CERVICAL SPINE 4-5 VIEWS Madiha Hurtado NP [address] [phone] [facility] Referral ID Status Reason Start Date Expiration Date Visits Requested Visits Authorized [id number] Authorization Not Required 04/16/2022 1 1 Encounter Details Date Type Department Care Team (Latest Contact Info) Description 06/18/2022 10:28 EDT - 06/18/2022 23:59 EDT [facility] [address] [address] Cervical radiculopathy Discharge Disposition: Home or Self Care [...] place to sleep or slept in a group home (including now)? No 05/17/2022 Interpersonal Safety Answer [...] Master's degree (e.g., MA, MS, Joanne, MEd, OVERNIGHT ASSOCIATE, LILA) 06/19/2020 Sex and Gender Information Value [...] Description 10/22/2023 13:25 EDT Hospital Encounter [facility] OR [address] [place] [address] [phone] Walker Pride MD [address] [place] [phone] 10/22/2023 13:25 EDT - 10/22/2023 17:00 EDT Surgery [facility] OR [address] [place] [address] [phone] Walker Pride MD [address] [place] [phone] Left L34 decompression, redo left L45 decompression [[id number] (CPT??)] 11/22/2023 10:00 EDT Post-op Visit [facility] Neurosurgery - [address] [phone] Madiha Hurtado NP 111 [facility], [address] [place] [phone] Scheduled Procedures Name Priority Associated Diagnoses Date/Ti me LAMINECTOMY, SPINE, LUMBAR, 1 LEVEL, WITH FORAMINOTOMY OR FACETECTOMY Lumbar radiculopathy 10/22/2023 13:25 EDT LAMINECTOMY, SPINE, WITH FACETECTOMY AND FORAMINOTOMY, ADDITIONAL LEVEL FOLLOWING INITIAL LEVEL Lumbar radiculopathy 10/22/2023 13:25 EDT documented as of this encounter Procedures Procedure Name Priority Date/Time Associated Diagnosis Comments XR CERVICAL SPINE 4-5 VIEWS Routine 06/18/2022 10:39 EDT Cervical radiculopathy documented in this encounter Results * XR CERVICAL SPINE [...] in this encounter Visit Diagnoses Diagnosis Cervical radiculopathy Brachial neuritis or radiculitis nos Lumbar radiculopathy Thoracic or lumbosacral neuritis or radiculitis, unspecified documented in this encounter Care Teams Data Entry Analyst Relationship Specialty Start Date End Date Galilea Masr, BUSGIRL [address] [place] [phone] PCP - General 09/16/21 documented as of this encounter
--- OUTSIDE RECORDS SUMMARY | 2023-10-19 15:33 | XMS_ITS | Encounter Summary ---
Author Organization [facility] Address [address] [place] [address] Care Team Providers Care Volcanologist Name Role Phone Galilea Mars NP Primary Care Provider [phone] Reason for Visit * Reason Onset Date Comments Discuss Surgery 09/21/2023 Encounter Details Date Type Department Care Team (Late st Contact Info) Description 09/21/2023 Telephone [facility] Neurosurgery - [facility] [address] [place], [place] [phone] Walker Pride MD 111 [facility], [address] [place] [phone] Discuss Surgery (/) Social History Tobacco Use Types Packs/Day [...] place to sleep or slept in a half-way (including now)? No 06/21/2022 Interpersonal Safety Answer [...] Master's degree (e.g., MA, MS, Joanne, MEd, MRI SPECIAL PROCEDURES TECHNOLOGIST, LILA) 06/19/2020 Sex and Gender Information Value [...] * Telephone Encounter - Jael Knight - 09/21/2023 1430 EDT Teri returned my call and was offered a surgery date of 10/21 which she accepted. She is aware that she will need to have a pre-op physical with her primary care physician and will contact their office to get this scheduled. * Telephone Encounter - Jael Knight - 09/21/2023 1400 EDT Called and LM for Teri to return my call to discuss scheduling her surgery with Dr. Pride. documented in this encounter Plan of Treatment Upcoming Encounters Date Type Department Care Team (Late st Contact Info) Description 10/22/2023 13:25 EDT Hospital Encounter [facility] OR [address] [place] [address] Walker Pride MD [address] [place] [address], [address] [place] [phone] 10/22/2023 13:25 EDT - 10/22/2023 17:00 EDT Surgery [facility] OR [address] [place], [place] [phone] Walker Pride MD 111 [facility], [address] [place] [phone] Left L34 decompression, redo left L45 decompression [[id number] (CPT??)] 11/22/2023 10:00 EDT Post-op Visit [facility] Neurosurgery - [address] [phone] Madiha Hurtado NP 111 [facility], [address] [place] [phone] Scheduled Procedures Name Priority Associated Diagnoses Date/Ti me LAMINECTOMY, SPINE, LUMBAR, 1 LEVEL, WITH FORAMINOTOMY OR FACETECTOMY Lumbar radiculopathy 10/22/2023 13:25 EDT LAMINECTOMY, SPINE, WITH FACETECTOMY AND FORAMINOTOMY, ADDITIONAL LEVEL FOLLOWING INITIAL LEVEL Lumbar radiculopathy 10/22/2023 13:25 EDT documented as of this encounter Visit Diagnoses Not on filedocumented in this encounter Care Teams Volcanologist Relationship Specialty Start Date End Date Galilea Mars NP [address] [place] [phone] PCP - General 09/16/21 documented as of this encounter
--- OUTSIDE RECORDS SUMMARY | 2023-10-19 15:33 | XMS_ITS | Encounter Summary ---
Author Organization [facility] Address [address] [place] [address] Care Team Providers Care Stained Glass Glazier Helper Name Role Phone Galilea Mars NP Primary Care Provider [phone] Reason for Visit * Reason Onset Date Comments Appointment Related 09/07/2023 Encounter Details Date Type Department Care Team (Late st Contact Info) Description 09/07/2023 Telephone [facility] Neurosurgery - [facility] [address] [place], [place] [phone] Walker Pride MD 111 [facility], [address] [place] [phone] Appointment Related Social History Tobacco [...] in a group home (including now)? No 06/21/2022 Interpersonal Safety [...] Master's degree (e.g., MA, MS, Joanne, MEd, WATER RESTORATION TECHNICIAN, LILA) 06/19/2020 Sex and Gender Information Value [...] * Telephone Encounter - Jael Knight - 09/08/2023 1047 EDT Images from the original note were not included. Called and spoke to Teri and rescheduled her appointment with Dr. Pride: * Telephone Encounter - Jael Knight - 09/07/2023 0843 EDT Called and spoke to Teri and let her know that Dr. Pride is sick and, therefore, we have to cancel her appointment with him this morning. Teri is scheduled to have an MRI this morning as well which we discussed that she should still have. Explained that I will be in touch in the next day or two to get her appointment with Dr. Pride rescheduled once I have a better idea of how he is feeling. documented in this encounter Plan of Treatment Upcoming Encounters Date Type Department Care Team (Late st Contact Info) Description 10/22/2023 13:25 EDT Hospital Encounter [facility] OR [address] [place] [address] [phone] Walker Pride MD [address] [place] [address], [facility] [address] [place] [phone] 10/22/2023 13:25 EDT - 10/22/2023 17:00 EDT Surgery [facility] [place] [address] [place] [address] [phone] Walker Pride MD [address] [place] [address], [facility] [address] [place] [phone] Left L34 decompression, redo left L45 decompression [[id number] (CPT??)] 11/22/2023 10:00 EDT Post-op Visit [facility] Neurosurgery - [address] [phone] Madiha Hurtado NP [address] [place] [address], [facility] [address] [place] [phone] Scheduled Procedures Name Priority Associated Diagnoses Date/Ti me LAMINECTOMY, SPINE, LUMBAR, 1 LEVEL, WITH FORAMINOTOMY OR FACETECTOMY Lumbar radiculopathy 10/22/2023 13:25 EDT LAMINECTOMY, SPINE, WITH FACETECTOMY AND FORAMINOTOMY, ADDITIONAL LEVEL FOLLOWING INITIAL LEVEL Lumbar radiculopathy 10/22/2023 13:25 EDT documented as of this encounter Visit Diagnoses Not on filedocumented in this encounter Care Teams Stained Glass Glazier Helper Relationship Specialty Start Date End Date Galilea Mars, KARIME [address] [place] [phone] PCP - General 09/16/21 documented as of this encounter
--- OUTSIDE RECORDS SUMMARY | 2023-10-19 15:33 | XMS_ITS | Encounter Summary ---
Author Organization [facility] Address [address] [place] [address] Care Team Providers Care Paint And Table Edger Name Role Phone Galilea aMrs NP Primary Care Provider Reason for Referral * Radiology Services (STAT) - Closed Specialty Diagnoses / Procedures Referred By Contac t Referred To Contact Diagnoses Lumbar radiculopathy Left foot drop Neurological abnormality Procedures MR LUMBAR SPINE WO CONTRAST Galilea Mars NP [address] [place] [address] Mri, Open [address] [place] [address] Referral ID Status Reason Start Date Expiration Date Visits Re quested Visits Authorized [id number] Closed 07/15/2023 01/11/2024 1 1 Reason for Visit * Reason Comments Follow-up Foot drop & back enoch n Encounter Details Date Type Department Care Team (Latest Contact Info) Description 07/15/2023 14:30 EDT Office Visit [facility] Adult Primary [facility] - [place] [address] [place] [address] Galilea Mars NP [address] [place] [address] Lumbar radiculopathy (Primary Dx); Left foot drop; Neurological abnormality Social History Tobacco Use Types Packs/Day Years [...] place to sleep or slept in a longterm (including now)? No 06/21/2022 Interpersonal Safety Answer Date Record ed How often does anyone, christophernadia daniel family, hit, punch or physically hurt you? Never 06/21/2022 How often does anyone, inclnadia daniel family, insult, scream, curse or threaten to hurt you? Never 06/21/2022 Education Answer Date Recorded What is the highest level of school you have completed or the highest degree you have received? Master's degree (e.g., MA, MS, Joanne, MEd, SERVICE WORKER, LILA) 06/19/2020 Sex and Gender Information Value Date Recorded Sex Assigned at Female 10/08/2022 13:26 EDT Gender Identity Female 07/29/2021 16:35 EDT Sexual Orientation Straight 10/08/2022 13 :26 EDT documented as of this encounter Last Filed Vital Signs Vital Sign Reading Time Taken Comments Blood Pressure 129/83 07/15/2023 1429 EDT Pulse 76 07/15/2023 1429 EDT Temperature 36.4 ??C (97.6 ??F) 07/15/2023 1429 EDT Respiratory Rate 10 07/15/2023 1429 EDT Oxygen Saturation - - Inhaled Oxygen Concentration - - Weight 73.9 kg (163 lb) 07/15/2023 1429 EDT Height 163.9 cm (5' 4.53) 07/15/2023 1429 EDT Body Mass Index 27.52 07/15/2023 1429 EDT documented in this encounter Ordered Prescriptions Prescription Sig Dispensed Refills Start Date End Da te LORazepam (ATIVAN) 0.5 mg tablet Take 1 Tablet by mouth 1 (one) time for 1 dose. Prior to MRI Daily Max: 0.5 mg 1 Tablet 07/15/2023 07/15/2023 methylPREDNISolone (MEDROL, SHANTE,) 4 mg tabletIndications:Left foot drop follow package directions 1 Each 07/15/2023 09/15/2023 documented in this encounter Progress Notes * Galilea Mars, COMB FIXER - 07/15/2023 1430 EDT Primary Care Visit Jonas Williamson is a 32 y.o. female presenting with Follow-up (Foot drop & back pain ) History of Present Illness The patient, with a history of lumbar discectomy in 2021, presents with recurrent back pain that 'flares up, ' worsening left leg pain and weakness. 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 The pain is usually manageable, but has recently worsened. She now has new left foot drop and sharp nerve pain in the calf, which is a change from her baseline. The pain in the calf is intermittent and was severe when it first started. The patient denies any precipitating event for this flare. She also reports sharp left groin pain. The patient has been managing the pain with Tylenol, Advil, and gabapentin (300mg twice daily). She has tried physical therapyexercises at home with minimal relief. The patient has fallen three times due to instability from the foot drop and is using crutches for support. ROS - See HPI Data reviewed this visit: problem list/past medical history, current medications, allergies, and lumbar MRI from 2021 Objective BP 129/83 (BP Cuff Location: Right arm, BP Patient Position: Sitting, BP Cuff Sizes: Adult, regular) Pulse 76 Temp 36.4 ??C (97.6 ??F) (Tympanic) Resp 10 Ht 163.9 cm (64.53) Wt 73.9 kg (163 lb) BMI 27.52 kg/m?? Physical Exam Vitals reviewed. Constitutional: General: She is not in acute distress. Appearance: Normal appearance. She is well-developed, well-groomed and normal weight. She is not ill-appearing or diaphoretic. Comments: Patient using crutches for ambulation assistance. Cardiovascular: Pulses: Dorsalis pedis pulses are 2+ on the right side and 2+ on the left side. Pulmonary: Effort: Pulmonary effort is normal. Musculoskeletal: Comments: Marked left leg weakness with knee extension/flexion and hip extension/flexion. Left footdrop present with no ability to dorsiflex. Neurological: Mental Status: She is alert. Deep Tendon Reflexes: Babinski sign absent on the right side. Babinski sign absent on the left side. Reflex Scores: Patellar reflexes are 2+ on the right side and 2+ on the left side. Comments: Left leg with sensation changes to medial and lateral aspects of calf. Left foot is numb with no sensation. Psychiatric: Behavior: Behavior is cooperative. Assessment & Plan Lumbar Radiculopathy/left foot drop: New onset left foot drop and increased pain in the left lower extremity, with a history of lumbar discectomy in August 2021. Noted sharp pain in the left groin and calf, with diminished sensation in the left lower extremity. No bowel or bladder incontinence. -Order urgent MRI to assess for nerve impingement. -Start Medrol Dosepak to decrease inflammation. -Continue Gabapentin 300mg twice daily and reassess after steroid course. -Advise patient to seek emergency care if there is any loss of bowel or bladder control. -Patient should consider wearing a full high top shoe with ankle support for the foot drop. -Patient should continue use of crutches if this is comfortable. Can transition to a cane for stability in the event the medrol dosepak improves foot drop. General Health Maintenance: -Physical exam scheduled for August 2023. -Discussed IUD removal and potential need to establish care with a ditto machine operator. Diagnoses and all orders for this visit: Lumbar radiculopathy - MR LUMBAR SPINE WO CONTRAST Left foot drop - MR LUMBAR SPINE WO CONTRAST - methylPREDNISolone (MEDROL, SHANTE,) 4 mg tablet Neurological abnormality - MR LUMBAR SPINE WO CONTRAST Other orders - LORazepam (ATIVAN) 0.5 mg tablet Patient education was direct. Barriers were assessed and addressed as needed. I discussed with Teri Toribio the use of this audio recording tool [...] Info) Description 10/22/2023 13:25 EDT Hospital Encounter [facility] OR [address] [place] [address] [phone] Walker Pride MD [address] [place] [address] [phone] 10/22/2023 13:25 EDT - 10/22/2023 17:00 EDT Surgery [facility] OR [address] [place] [address] [id number] Walker Pride MD [address] [place] [address] [phone] Left L34 decompression, redo left L45 decompression [55400 (CPT??)] 11/22/2023 10:00 EDT Post-op Visit [facility] Neurosurgery - [address] [phone] Maidha Hurtado NP [address] [place] [address] [phone] Scheduled Orders Name Type Priority Associated Diagnoses Orde r Schedule MR LUMBAR SPINE WO CONTRAST Imaging STAT Lumbar radiculopathy Left foot drop Neurological abnormality Expected: 07/15/2023 (Approximate), Expires: 01/14/2025 Scheduled Procedures Name Priority Associated Diagnoses Date/Ti me LAMINECTOMY, SPINE, LUMBAR, 1 LEVEL, WITH FORAMINOTOMY OR FACETECTOMY Lumbar radiculopathy 10/22/2023 13:25 EDT LAMINECTOMY, SPINE, WITH FACETECTOMY AND FORAMINOTOMY, ADDITIONAL LEVEL FOLLOWING INITIAL LEVEL Lumbar radiculopathy 10/22/2023 13:25 EDT documented as of this encounter Visit Diagnoses Diagnosis Lumbar radiculopathy- Primary Thoracic or lumbosacral neuritis or radiculitis, unspecified Left foot drop Other acquired deformity of ankle and foot Neurological abnormality Other symptoms involving nervous and musculoskeletal systems Lumbar radiculopathy Thoracic or lumbosacral neuritis or radiculitis, unspecified documented in this encounter Discontinued Medications Medication Sig Discontinue Reason Start Date End Da te clotrimazole-betametha sone (LOTRISONE) cream Apply to affected areas on hands twice daily Therapy completed (will not send dc message to pharm) 08/14/2021 07/15/2023 documented as of this encounter Care Teams Paint And Table Edger Relationship Specialty Start Date End Date Galilea Mars NP [address] [place] [phone] PCP - General 09/16/21 documented as of this encounter
--- OUTSIDE RECORDS SUMMARY | 2023-10-19 15:33 | XMS_ITS | Encounter Summary ---
Author Organization [facility] Address [address] [place] [address] Care Team Providers Care Differential Specialist Name Role Phone Galilea Mars NP Primary Care Provider [phone] Reason for Referral * Radiology Services (Routine/Next Available) - Authorized Specialty Diagnoses / Procedures Referred By Contac t Referred To Contact Radiology Diagnoses Foot drop, left Procedures MR LUMBAR SPINE W WO Walker Stewart MD [address] [place] [phone] [facility] Referral ID Status Reason Start Date Expiration Date V isits Requested Visits Authorized [id number] Authorized 08/10/2023 02/06/2024 1 1 Reason for Visit * Radiology Services (Routine/Next Available) - Authorized Specialty Diagnoses / Procedures Referred By Contac t Referred To Contact Radiology Diagnoses Foot drop, left Procedures MR LUMBAR SPINE W WO Walker Stewart MD [address] [place] [phone] [facility] Referral ID Status Reason Start Date Expiration Date V isits Requested Visits Authorized [id number] Authorized 08/10/2023 02/06/2024 1 1 Encounter Details Date Type Department Care Team (Latest Contact Info) Description 09/07/2023 9:20 EDT - 09/07/2023 23:59 EDT Hospital Encounter [facility] [address] [place] [address] Foot drop, left Discharge Disposition: Home or Self Care Social [...] in a nursing home (including now)? No 06/21/2022 Interpersonal Safety [...] Master's degree (e.g., MA, MS, Joanne, MEd, FRUIT HARVEST MACHINE OPERATOR, LILA) 06/19/2020 Sex and Gender [...] 2 times daily. 180 Capsule 1 08/19/2023 levonorgestreL (MIRENA) 20 mcg/24 hours (8 yrs) 52 mg IUD 1 Each by intrauterine route Once. 2016 Multivitamins with Minerals tablet tablet Take 1 Tablet by mouth daily. sertraline (ZOLOFT) 100 mg tablet Take 1 Tablet by mouth daily. 90 Tablet 3 11/05/2022 methylPREDNISolone (MEDROL, SHANTE,) 4 mg tabletIndications:Le ft foot drop follow package directions 1 Each 07/15/2023 09/15/2023 documented as of this encounter Discharge Disposition Disposition Code Departure Means Destination Home or Self Care documented in this encounter Plan of Treatment Upcoming Encounters Date Type Department Care Team (Late st Contact Info) Description 10/22/2023 13:25 EDT Hospital Encounter [facility] OR [address] [place] [address] [phone] Walker Pride MD [address] [place] [address] [phone] 10/22/2023 13:25 EDT - 10/22/2023 17:00 EDT Surgery [facility] OR [address] [place] [address] [phone] Walker Pride MD [address] [place] [address] [phone] Left L34 decompression, redo left L45 decompression [[id number] (CPT??)] 11/22/2023 10:00 EDT Post-op Visit [facility] Neurosurgery - [address] [phone] Madiha Hurtado NP [address] [place] [address] [phone] Scheduled Procedures Name Priority Associated Diagnoses Date/Ti me LAMINECTOMY, SPINE, LUMBAR, 1 LEVEL, WITH FORAMINOTOMY OR FACETECTOMY Lumbar radiculopathy 10/22/2023 13:25 EDT LAMINECTOMY, SPINE, WITH FACETECTOMY AND FORAMINOTOMY, ADDITIONAL LEVEL FOLLOWING INITIAL LEVEL Lumbar radiculopathy 10/22/2023 13:25 EDT documented as of this encounter Procedures Procedure Name Priority Date/Time Associated Diagnosis Comments MR LUMBAR SPINE W WO CONTRAST Routine 09/07/2023 10:19 EDT Foot drop, left documented in this encounter Results * MR LUMBAR SPINE W WO CONTRAST (09/07/2023 10:19 EDT) Anatomical Region Laterality Modality Spine Magnetic Resonan ce 09/07/2023 15:0 3 EDT Impressions 09/07/2023 15:03 EDT L4-L5 disc bulge with tiny annular fissure and minor spinal canal stenosis and mild bilateral neural foraminal narrowings with flattening/compression of the exiting right and encroachment of exiting left L4 nerve roots. [id number] Narrative 09/07/2023 15:03 EDT EXAM: MRI LUMBAR [...] significant neural foraminal narrowings. Resulting Agency Comment [id number] Procedure Note Jennifer Feliz MD - 09/07/2023 [...] encroachment of exiting left L4 nerve roots. [id number] Walker Pride MD IMG MRI ORDERABLE S documented in this encounter Visit Diagnoses Diagnosis Foot drop, left Other acquired deformity of ankle and foot Lumbar radiculopathy Thoracic or lumbosacral neuritis or radiculitis, unspecified documented in this encounter Administered Medications Inactive Administered Medications - up to 3 most recent administrations Medication Order MAR Action Action Date Dose Rate Site gadoterate meglumine solution 1-30 mL 1-30 mL, intravenous, Once in imaging, 1 dose, Starting on Wed09/07/23 at 1020, Until Wed09/07/23 at 1020, Routine, Imaging Protocol Orders Given 09/07/2023 10:20 EDT 14 mL documented in this encounter Orders Medications Ordered That Sameer ht Not Have Been Administered Count Last Ordered Date First Ordered Date gadoterate meglumine solution 1-30 mL 1 documented in this encounter Care Teams Differential Specialist Relationship Specialty Start Date End Date Galilea Mars NP [address] [place] [phone] PCP - General 09/16/21 documented as of this encounter
--- OUTSIDE RECORDS SUMMARY | 2023-10-19 15:33 | XMS_ITS | Encounter Summary ---
Author Organization [facility] Address [address] [place] [address] Care Team Providers Care Coppersmith Apprentice Name Role Phone Galilea Mras NP Primary Care Provider [phone] Reason for Visit * Reason Onset Date Comments New/Evolving Symptoms 07/06/2023 Encounter Details Date Type Department Care Team (Late st Contact Info) Description 07/06/2023 Telephone [facility] Neurosurgery - [facility] [address] [place], [place] [phone] Walker Pride MD [address] [facility], [address] [place] [phone] New/Evolving Symptoms Social History Tobacco Use Types Packs/Day Years [...] place to sleep or slept in a snf (including now)? No 06/21/2022 Interpersonal Safety Answer [...] Master's degree (e.g., MA, MS, Joanne, MEd, SOCK FOLDER, LILA) 06/19/2020 Sex and Gender Information Value Date Recorded Sex Assigned at Female 10/08/2022 13:26 EDT Gender Identity Female 07/29/2021 16:35 EDT Sexual Orientation Straight 10/08/2022 13 :26 EDT documented as of this encounter Miscellaneous Notes * Telephone Encounter - Negar Wallis RN - 07/06/2023 1009 EDT Spoke to Madiha in regards to this to see her thoughts prior to calling patient. She states if footdrop is bad, like like unable to move up or down, patient is dragging foot, and/or tripping when walking as well as pain in leg then she should get imaging in [place] and bring disk back with her. She states if foot drop is not bad, patient is able to walk then patient can either go through PCP forimaging or come and into the clinic here to see provider and then have imaging ordered. Outgoing to call to patient to discuss. Patient states that for about 2 days she was having left leg pain. She states it radaited down her hip and into leg down into her calf. She states she went to urgent care in [place] where they stated she has foot drop and should gets scans done. Patient wanted hours just to find out they could not do the scans. Patient sates her symptoms are slightly better today. She states she is having left buttocks pain that is radiating to her left hip. She sates sheis able to walk with occasional tripping and is able to perform plantar flexion but is unable to perform dorsiflexion. Patient states foot drop is better today compared to yesterday as well. Advised that if unable to move up or down, patient is dragging foot, and/or tripping and pain is progressively getting worse than she should return to ED in [place] for further evaluation and imaging. Advisedif things continue to improve but don't fully resolve. then she can have PCP order imaging or she can schedule follow up with us and we can order imaging. Patient verbalized understanding and will call if needed once she has returned. * Telephone Encounter - CyndiDariela cochran - 07/06/2023 0931 EDT Patient is currently in [place] and is having nerve pain down her hip, leg, and calf. Patient stated she went to a urgent care in [place] and they stated she has Foot Drop and will need to have imaging done to make sure there is no nerve damage. Patient will be returning mid day 07/10/23 and would like to know if this is something she is able to wait and have done once she returns to [place] or if it is more serious and she should return to Urgent care down in [place]. Please call patient back to discuss on her mobile phone. Server Service Assistant confirmed patients number in demographics is up to date. documented in this encounter Plan of Treatment Upcoming Encounters Date Type Department Care Team (Late st Contact Info) Description 10/22/2023 13:25 EDT Hospital Encounter [facility] OR [address] [place] [address] [phone] Walker Pride MD [address] [place] [address] [phone] 10/22/2023 13:25 EDT - 10/22/2023 17:00 EDT Surgery [facility] OR [address] [place] [address] [phone] Walker Pride MD [address] [place] [address] [phone] Left L34 decompression, redo left L45 decompression [[id number] (CPT??)] 11/22/2023 10:00 EDT Post-op Visit [facility] Neurosurgery - [address] [place] [phone] Madiha Hurtado NP 111 [facility], [address] [place] [phone] Scheduled Procedures Name Priority Associated Diagnoses Date/Ti me LAMINECTOMY, SPINE, LUMBAR, 1 LEVEL, WITH FORAMINOTOMY OR FACETECTOMY Lumbar radiculopathy 10/22/2023 13:25 EDT LAMINECTOMY, SPINE, WITH FACETECTOMY AND FORAMINOTOMY, ADDITIONAL LEVEL FOLLOWING INITIAL LEVEL Lumbar radiculopathy 10/22/2023 13:25 EDT documented as of this encounter Visit Diagnoses Not on filedocumented in this encounter Care Teams Coppersmith Apprentice Relationship Specialty Start Date End Date Galilea Mars NP [address] [place] [phone] PCP - General 09/16/21 documented as of this encounter
--- OUTSIDE RECORDS SUMMARY | 2023-10-19 15:33 | XMS_ITS | Encounter Summary ---
Author Organization [facility] Address [address] [place] [address] Care Team Providers Care Grinding Room Supervisor Name Role Phone Galilea Mars NP Primary Care Provider [phone] Reason for Referral * Radiology Services (Routine/Next Available) - Authorization Not Required Specialty Diagnoses / Procedures Referred By Contac t Referred To Contact Diagnoses Lumbar radiculopathy Procedures XR LUMBAR SPINE 4+ VIEWS Madiha Hurtado NP [address] [phone] [facility] Referral ID Status Reason Start Date Expiration Date Visits Requested Visits Authorized [id number] Authorization Not Required 07/19/2023 1 1 Encounter Details Date Type Department Care Team (Late st Contact Info) Description 07/19/[address] [facility] Neurosurgery - [address] [address] Madiha Hurtado NP [address] [phone] Lumbar radiculopathy (Primary Dx) Social History Tobacco Use [...] (e.g., MA, MS, Joanne, MEd, FRONT OFFICE MANAGER, LILA) 06/19/2020 Sex and Gender Information Value Date Recorded Sex Assigned at Female 10/08/2022 13:26 EDT Gender Identity Female 07/29/2021 16:35 EDT Sexual Orientation Straight 10/08/2022 13 :26 EDT documented as of this encounter Plan of Treatment Upcoming Encounters Date Type Department Care Team (Late st Contact Info) Description 10/22/2023 13:25 EDT Hospital Encounter [facility] OR [address] [place] [address] [phone] Walker Pride MD [address] [place] [address] [phone] 10/22/2023 13:25 EDT - 10/22/2023 17:00 EDT Surgery [facility] OR [address] [place] [address] [phone] Walker Pride MD [address] [place] [address] [phone] Left L34 decompression, redo left L45 decompression [[id number] (CPT??)] 11/22/2023 10:00 EDT Post-op Visit [facility] Neurosurgery - [facility] [address] [place], [place] [address] Madiha Hurtado NP 111 [facility] [place], [address] [place] [phone] Scheduled Procedures Name Priority Associated Diagnoses Date/Ti me LAMINECTOMY, SPINE, LUMBAR, 1 LEVEL, WITH FORAMINOTOMY OR FACETECTOMY Lumbar radiculopathy 10/22/2023 13:25 EDT LAMINECTOMY, SPINE, WITH FACETECTOMY AND FORAMINOTOMY, ADDITIONAL LEVEL FOLLOWING INITIAL LEVEL Lumbar radiculopathy 10/22/2023 13:25 EDT documented as of this encounter Results * XR LUMBAR SPINE 4+ VIEWS (08/03/2023 11:22 EDT) Anatomical Region Laterality Modality Computed Radiogr aphy 08/04/2023 10:5 2 EDT Impressions 08/04/2023 10:52 EDT Findings/Impression: Slight retrolisthesis at L3-4 no evidence of dynamic instability. Mild intervertebral disc height loss at L4-5 and L5-S1. No new vertebral body height loss. The included soft tissues are within normal limits. [id number] Narrative 08/04/2023 10:52 EDT XR LUMBAR SPINE 4+ VIEWS ??08/03/2023 11:10 AM Clinical History/Comments: lumbar radiculopathy;M54.16:Lumbar radiculopathy. Technique: 4 views of the lumbar spine Comparison: MRI 07/16/2023; radiograph 06/18/2022 Resulting Agency Comment [id number] Procedure Note Shahzad Way MD - 08/04/2023 [...] included soft tissues are within normal limits. [id number] Madiha Hurtado NP IMG DIAGNOSTIC IMAGING ORDERABLES documented in this encounter Visit Diagnoses Diagnosis Lumbar radiculopathy- Primary Thoracic or lumbosacral neuritis or radiculitis, unspecified Lumbar radiculopathy Thoracic or lumbosacral neuritis or radiculitis, unspecified Lumbar radiculopathy Thoracic or lumbosacral neuritis or radiculitis, unspecified documented in this encounter Care Teams Grinding Room Supervisor Relationship Specialty Start Date End Date Galilea Mars NP [address] [place] [phone] PCP - General 09/16/21 documented as of this encounter
--- OUTSIDE RECORDS SUMMARY | 2023-10-19 15:33 | XMS_ITS | Encounter Summary ---
Author Organization [facility] Address [address] [place] [address] Care Team Providers Care Livestock Laborer Name Role Phone Galilea Mars NP Primary Care Provider [phone] Reason for Visit * Reason Comments Follow-up Foot drop, left Encounter Details Date Type Department Care Team (Late st Contact Info) Description 09/15/2023 8:20 EDT Office Visit [facility] Neurosurgery - [address] [address] Walker Pride MD [address] [facility], [address] [place] [phone] Lumbar radiculopathy (Primary Dx) Social History Tobacco [...] place to sleep or slept in a detention (including now)? No 06/21/2022 Interpersonal Safety Answer [...] Master's degree (e.g., MA, MS, Joanne, MEd, WAREHOUSE DRIVER, LILA) 06/19/2020 Sex and Gender Information Value [...] Oxygen Concentration - - Weight 73.9 kg (162 lb 14.7 oz) 09/15/2023 0825 EDT Height 163.9 cm (5' 4.53) 09/15/2023 0825 EDT Body Mass Index 27.51 09/15/2023 0825 EDT documented in this encounter Functional Status [...] Progress Notes * Walker Pride MD - 09/15/2023 0821 EDT [facility] NEUROLOGICAL SURGERY PROGRESS / FOLLOWUP NOTE - 09/15/2023 SUBJECTIVE: Ms Toribio is a very nice 33-year-old woman who I have performed previous left L4-L5 microdiskectomy in 2020 who did exceptionally well. This spring while in [place] she developed left leg pain. She describes this differently than her previous episode which was in her lateral leg and lateral calf in her left hip and front of her byrd. She, unfortunately, as well has developed a 2/5 footdrop. DIAGNOSTIC DATA: Her previous MRI, I believe, was significant for an inferiorly extruded L3-L4 diskherniation, best seen on post-contrast sagittal imaging. She returns today with repeat imaging and this seems to be largely resolved with some residual scar tissue. At the L4-L5 segment there are postoperative changes on the left and I cannot, as well, definitively say there is not a small disk herniation there affecting the traversing L5 nerve root. ASSESSMENT AND PLAN: Today, we have discussed given her persistent pain despite her radiographic improvement and persistent foot drop requiring the use of a cane that we perform left L3-L4 decompression and redo left L4-L5 decompression. We have discussed the risks, benefits of this including, but not limited to bleeding, infection, stroke, coma, , blindness, failure to improve, worsening ofsymptoms, weakness, numbness, pain, reoperation, reherniation, delayed spinal instability, spinal fluid leak. Ms Toribio understands these risks and wishes to proceed with surgery over the coming weeks. She will meet with our office nurse today for perioperative counseling and undergo preoperative history and physical through her primary care doctor. Walker Pride MD / AM Dictation ID: [id number] cc: * Walker Pride MD - 09/15/2023 0820 EDT This office note has been dictated. * Negar Wallis RN - 09/15/2023 0820 EDT Patient Education Topic: left L34 decompression, redo left L45 decompression (Left) Method: Verbal, Written Taught to: Patient Barriers: None Outcomes: independent and verbalized understanding PREPARING FOR SURGERY, A patient's guide was reviewed with the patient. Smoking cessation guidelines per patient guide unless otherwise documented by Physician. The patient was encouraged to reviewall instructions at home. Medications reviewed and reconciled Advised patient to DC all NSAIDS, vitamins and herbal supplements 7 days prior to procedure. Aspirin/Antiplatelet therapy: N/A Immunosuppressive therapy: N/A Insulin/oral hypoglycemic agents: N/A KAL inhibitor/ARB therapy: N/A Post-Op instructions reviewed. Collar/braces: N/A Advanced directive information provided. Pain Consult: N/A MRSA/MSSA protocol: N/A AGREEMENT FOR POST-OPERATIVE NON-INVASIVE VENTILATION: N/A Opioid Consent: Reviewed and signed Signature: NORA Basilio Patient denies any use of BiPAP/CPAP, denies any abnormal/genetic bleeding conditions, denies history of DVT/PE, denies currently or previously seeing cardiology, denies currently or previously seeing pulmonary, denies personal history of type 2 diabetes, denies any previous issues with anesthesia.Patient aware to get PCP clearance within 30 days of surgery. Encouraged to call with any questionsor concerns. Patient verbalized understanding. documented in this encounter Plan of Treatment Upcoming Encounters Date Type Department Care Team (Late st Contact Info) Description 10/22/2023 13:25 EDT Hospital Encounter [facility] OR [address] [place] [address] [phone] Walker Pride MD [address] [place] [phone] 10/22/2023 13:25 EDT - 10/22/2023 17:00 EDT Surgery [facility] OR [address] [place] [address] [phone] Walker Pride MD [address] [place] [address] [phone] Left L34 decompression, redo left L45 decompression [70692 (CPT??)] 11/22/2023 10:00 EDT Post-op Visit [facility] Neurosurgery - [address] [phone] Madiha Hurtado NP [address] [place] [address] [address] [place] [phone] Scheduled Procedures Name Priority Associated Diagnoses Date/Ti me LAMINECTOMY, SPINE, LUMBAR, 1 LEVEL, WITH FORAMINOTOMY OR FACETECTOMY Lumbar radiculopathy 10/22/2023 13:25 EDT LAMINECTOMY, SPINE, WITH FACETECTOMY AND FORAMINOTOMY, ADDITIONAL LEVEL FOLLOWING INITIAL LEVEL Lumbar radiculopathy 10/22/2023 13:25 EDT documented as of this encounter Visit Diagnoses Diagnosis Lumbar radiculopathy- Primary Thoracic or lumbosacral neuritis or radiculitis, unspecified Lumbar radiculopathy- Primary Thoracic or lumbosacral neuritis or radiculitis, unspecified Lumbar radiculopathy Thoracic or lumbosacral neuritis or radiculitis, unspecified documented in this encounter Discontinued Medications Medication Sig Discontinue Reason Start Date End Da te methylPREDNISolone (MEDROL, SHANTE,) 4 mg tabletIndications:Lef t foot drop follow package directions Patient Stopped Taking 07/15/2023 09/15/2023 documented as of this encounter Orders Case Request Count Last Ordered Date First Orde red Date CASE REQUEST OPERATING ROOM 1 09/15/2023 documented in this encounter Care Teams Livestock Laborer Relationship Specialty Start Date End Date Galilea Mars, KARIME [address] [place] [phone] PCP - General 09/16/21 documented as of this encounter
--- OUTSIDE RECORDS SUMMARY | 2023-10-19 15:33 | XMS_ITS | Encounter Summary ---
Author Organization [facility] Address [address] [place] [address] Care Team Providers Care Stars Specialist Name Role Phone Galilea Mars NEONATAL SPECIALIST Primary Care Provider [phone] Reason for Visit * Reason Comments Annual Exam BHS and SDOH complet ed online. ADV info provided. Immunizations Bivalent covid boost er and Tdap vaccines today. Encounter Details Date Type Department Care Team (Latest Contact Info) Description 07/03/2022 9:30 EDT Office Visit [facility] - [address] [place], [place] [phone] Galilea Mars, NEONATAL SPECIALIST [address] [place] [phone] Preventative health care (Primary Dx); Need for Tdap vaccination; Cervical radiculopathy Social History Tobacco Use Types Packs/Day Years [...] Master's degree (e.g., MA, MS, Joanne, MEd, CLIENT PROGRAM MANAGER, LILA) 06/19/2020 Sex and Gender Information [...] Reading Time Taken Comments Blood Pressure 112/72 07/03/2022 0936 EDT Pulse 77 07/03/2022 0936 EDT Temperature 36.1 ??C (97 ??F) 07/03/2022 0936 EDT Respiratory Rate 18 07/03/2022 0936 EDT Oxygen Saturation - - Inhaled Oxygen Concentration - - Weight 75.3 kg (166 lb) 07/03/2022 0936 EDT Height 163.9 cm (5' 4.53) 07/03/2022 0936 EDT Body Mass Index 28.03 07/03/2022 0936 EDT documented in this encounter Patient Instructions * Patient Instructions* Galilea Mars NP - 07/03/2022 9:30 EDT ABCDE's of Melanoma and the Ugly ducking Asymmetry - Melanoma is often asymmetrical, which means the shape isn???t uniform. Non-cancerous moles are typically uniform and symmetrical in shape. Border - Melanoma often has borders that aren???t well defined or are irregular in shape, whereas non-cancerous moles usually have smooth, well-defined borders. Color - Melanoma lesions are often more than one color or shade. Moles that are benign are typically one color. Diameter - Melanoma growths are normally larger than 6mm in diameter, which is about the diameter of a standard pencil. Evolution - Melanoma will often change characteristics, such as size, shape or color. Unlike most benign moles, melanoma tends to change management time. If you have a mole or skin growth, watch it for signs of changes. If you notice any of the ABCDEs of melanoma, make an appointment right away to be evaluated by a waitangi tribunal member. Ugly Duckling sign - The ugly duckling sign refers to one mole among many that sticks out and looksdifferent. * Attachments The following attachments cannot be sent through Care Everywhere. * [facility] Visit: 18 to 65 Years (N[place]ien) documented in this encounter Ordered Prescriptions Prescription Sig Dispensed Refills Start Date End Da te gabapentin (NEURONTIN) 300 mg capsule Take 1 Capsule by mouth 2 times daily. 180 Capsule 1 07/03/2022 08/18/2023 documented in this encounter Progress Notes * Galilea Mars NP - 07/03/2022 0930 EDT Female [facility] Adult Preventative Care Visit Patient ID: Teri Toribio is an 31 y.o. female. Subjective: HISTORY OF PRESENT ILLNESS: Teri Toribio female 31 y.o. who lives in [place] with her , Jayjay. 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 She reports her health is very good. She does not have any major health concerns today. She exercises frequently, running and doing strength workouts. LIAISON OFFICER Mirena Pap 07/02/20 NIL HR HPV- Disk herniation Had surgery summer 2021, with Dr. Pride for herniated disk which resolved symptoms. Was formerly on Gabapentin 200mg BID, No side effects, recommended to restart. Anxiety Therapist, Dandy Batres, [facility] Sertraline helps. Patient Active Problem List Diagnosis ??? Contraceptive management ??? Constipation by delayed colonic transit ??? Obsessive-compulsive disorder ??? Migraine with aura and without status migrainosus, not intractable ??? L4-L5 disc bulge ??? Lumbosacral radiculopathy at L5 Past Medical History: Diagnosis Date ??? Activity, other involving cardiorespiratory exercise 09-03-21 prior to the injury the pt was running 2 miles a day ??? Back pain 08-27-21 left-sided low back pain with radiculopathy. ??? Bradycardia 08-27-21- pt staes she has a lower HR than most ??? Exercise involving housework 08-27-21 tries is ??? Migraine with aura, not intractable Past Surgical History: Procedure Laterality Date ??? LUMBAR DISCECTOMY ??? WISDOM TOOTH EXTRACTION Social History Tobacco Use ??? Smoking status: Never ??? Smokeless tobacco: Never Substance Use Topics ??? Alcohol use: Yes Comment: socially ??? Drug use: No Family History Problem Relation Age of Onset ??? Melanoma Maternal Aunt ??? Melanoma Maternal Aunt ??? MS Mother ??? Breast Cancer Mother 62 ??? Thyroid Disease Mother ??? Diabetes Father ??? Heart Attack Father 65 s/p stents ??? Stroke Father ??? High Cholesterol Father ??? High Blood Pressure Father ??? Atrial fibrillation Maternal Grandmother ??? Tuberculosis Maternal Grandfather No Known Allergies Current Outpatient Medications Medication ??? acetaminophen (TYLENOL) 500 mg tablet ??? clotrimazole-betamethasone (LOTRISONE) cream ??? cyanocobalamin (VITAMIN B-12) 500 mcg tablet ??? gabapentin (NEURONTIN) 300 mg capsule ??? levonorgestreL (MIRENA) 20 mcg/24 hours (8 yrs) 52 mg IUD ??? Multivitamins with Minerals tablet tablet ??? riboflavin, vitamin B2, 400 mg tablet ??? sertraline (ZOLOFT) 100 mg tablet No current facility-administered medications for this visit. Review of Systems Constitutional: Negative for chills, fever and malaise/fatigue. HENT: Negative for congestion and sore throat. Eyes: Negative for blurred vision and double vision. Respiratory: Negative for cough, shortness of breath and wheezing. Cardiovascular: Negative for chest pain and palpitations. Gastrointestinal: Negative for abdominal pain, nausea and vomiting. Genitourinary: Negative for dysuria. Musculoskeletal: Left sided cervical radiculopathy Neurological: Positive for tingling. Negative for dizziness, seizures, loss of consciousness and headaches. Psychiatric/Behavioral: Negative for depression and suicidal ideas. The patient is nervous/anxious. Objective: BP 112/72 Pulse 77 Temp 36.1 ??C (97 ??F) (Tympanic) Resp 18 Ht 163.9 cm (64.53) Wt 75.3kg (166 lb) BMI 28.03 kg/m?? Body mass index is 28.03 kg/m??. Physical Exam Vitals and nursing note reviewed. Constitutional: General: She is not in acute distress. Appearance: She is well-developed and well-nourished. She is not diaphoretic. HENT: Right Ear: Tympanic membrane normal. No pain on movement. Left Ear: Tympanic membrane normal. No pain on movement. Nose: No nasal discharge. Mouth/Throat: Mouth: Mucous membranes are moist. Pharynx: Oropharynx is clear. Eyes: General: No scleral icterus. Right eye: No discharge. Left eye: No discharge. Conjunctiva/sclera: Conjunctivae normal. Neck: Thyroid: No thyromegaly. Cardiovascular: Rate and Rhythm: Normal rate and regular rhythm. Heart sounds: Normal heart sounds. No murmur heard. No friction rub. No gallop. Pulmonary: Effort: Pulmonary effort is normal. No respiratory distress or retractions. Breath sounds: Normal breath sounds. No stridor. No wheezing, rhonchi or rales. Chest: Chest wall: No tenderness. Abdominal: General: Bowel sounds are normal. There is no distension. Palpations: Abdomen is soft. There is no hepatosplenomegaly or mass. Tenderness: There is no abdominal tenderness. There is no guarding or rebound. Lymphadenopathy: Cervical: No cervical adenopathy. Neurological: Mental Status: She is alert. Psychiatric: Mood and Affect: Mood and affect normal. Behavior: Behavior normal. Thought Content: Thought content normal. Judgment: Judgment normal. Charts reviewed 06/18/22-Follow up note- Dr. Pride ??I have discussed with Ms Toribio that I feel likely the left-sided C6-C7 disk herniation is the cause of her current symptoms.?? Certainly, the C5-C6 could be involved as well.?? We have discussedthe difference between cervical radiculopathy and cervical myelopathy currently by her exam and hercomplaints.?? She does not have cervical myelopathy.?? We have discussed the natural history of cervical radiculopathy and that at this point, I would recommend continued physical therapy, managed care coordinator, the regular use of a nonsteroidal anti- inflammatory.?? I have asked her to contact her primary care doctor to reinstitute gabapentin therapy, which she had used for her lumbar radiculopathy in the past.?? Assessment: Breast cancer screen: Screening not indicated: no risk factors. Discussed screening indications. Mom with history of breast cancer, BRCA negative. Screening beginning at 40 yo. Recommended breast awareness. Cervical cancer screen: Screening not indicated: recently screened, not due, due 2023. Colon cancer screen: Screening colonoscopy not indicated: no risk factors Skin cancer screen: We reviewed the characteristics of concerning skin lesions. Patient does not report any concerning lesions. Gonorrhea/Chlamydia Screen (<24 yr or high risk): Screening not indicated: no risk factors. Eye care: Last eye exam was 1 year ago. Counseled. Dental care: Last dental visit was 6 months ago. Counseled. Hearing: patient does not have concerns. Lipid screen: not indicated: no risk factors. Counseled. DM screen: not indicated: no risk factors. Counseled. HTN screen: BP is normal today. Counseled. Depression symptoms: none EtOH use: reports current alcohol use. Tobacco use: reports that she has never smoked. She has never used smokeless tobacco. Substance abuse: reports no history of drug use. Weight: overweight (BMI 25-29). Counseled. Exercise: daily. Counseled. Injury prevention: Seatbelt use: always. Helmet use: always. Gun safety (trigger locks, gun cabinets, separate ammo storage) was not discussed. Immunizations: Counseled about: Td (1 dose every 10 years) Immunization History Administered Date(s) Administered ??? Covid-19 mRNA Vaccine (PFIZER COVID-19) PF 0.3 ml IM (12 yrs+) 07/12/2020, 08/02/2020 ??? Covid-19 mRNA, ajith Ready to Use Vaccine (PFIZER READY TO USE COVID-19) PF 0.3 mL IM (12 yrs+) 02/18/2021 ??? Covid-19 mRNA-LNP Bivalent Vaccine (PFIZER BIVALENT BOOSTER) PF 0.3 mL IM (12 yrs+) 07/03/2022 ??? Influenza (split) 01/13/2007 ? ? Influenza Vaccine =>3yo Split Preservative Free IM 01/08/2010 ??? Influenza Vaccine Quad (AFLURIA) PF 0.5 ml IM (3 yrs+) 02/01/2015 ??? Influenza Vaccine Quad PF 0.5 ml IM (6 mos+) 12/04/2019 ??? Meningococcal Conjugate (MCV4) Vaccine (MENACTRA) 4-Valent IM 07/12/2007 ? ? Tdap Vaccine =>7YO IM 07/03/2022 ??? Tetanus Vaccine IM, Historical 05/16/2003 Plan: Teri was seen today for annual exam and immunizations. Diagnoses and all orders for this visit: Preventative health care Teri is up to date on screenings. She is pursuing a healthy physical activity routine and diet. Wediscuss her need for Tetanus and COVID 19 boosters which she agrees to have today, and her future plans for . SDoH and BHS reviewed today. Reviewed ABCDE's of melanoma and ugly duckling sign. Need for Tdap vaccination - TDAP VACCINE =>7YO IM Cervical radiculopathy Her neurosurgeon requested we manage her Gabapentin for radiculopathy symptoms. She will start withGabapentin 300 mg daily for 3-5 days then increase to twice daily. We discuss potential for fatigue, and she will use caution as she readjusts to the medication. - gabapentin (NEURONTIN) 300 mg capsule; Take 1 Capsule by mouth 2 times daily. - COVID-19 MRNA-LNP BIVALENT VACCINE (PFIZER BIVALENT BOOSTER) PF 0.3 ML IM (12 YRS+) Return in about 1 year (around 07/04/2023), or if symptoms worsen or fail to improve, for annual, w/PCP. References: USPTF Level A & B Recommendations List USPTF Adult Recommendations USPTF Breast Cancer Screening USPTF Cervical Cancer Screening USPTF Colorectal Cancer Screening CDC Adult Immunizations 2011 CDC 7-18 Years Immunizations 2011 AAFP Clinical Recommendations * Nicole Durham LPN - 07/03/2022 0930 EDT Patient Education Topic: Bivalent Covid booster and Tdap vaccines administered bilaterally. Method: Handout and Verbal Taught to: Patient Barriers: None Outcomes: verbalized understanding NICOLE DURHAM LPN 07/03/2022 10:40 documented in this encounter Plan of Treatment Upcoming Encounters Date Type Department Care Team (Late st Contact Info) Description 10/22/2023 13:25 EDT Hospital Encounter [facility] OR [address] [place] [address] [phone] Walker Pride MD [address] [place] [address] [phone] 10/22/2023 13:25 EDT - 10/22/2023 17:00 EDT Surgery [facility] OR [address] [place] [address] [phone] Walker Pride MD [address] [place] [address] [phone] Left L34 decompression, redo left L45 decompression [78243 (CPT??)] 11/22/2023 10:00 EDT Post-op Visit [facility] Neurosurgery - [address] [phone] Madiha Hurtado NP [address] [place] [phone] Scheduled Procedures Name Priority Associated Diagnoses Date/Ti me LAMINECTOMY, SPINE, LUMBAR, 1 LEVEL, WITH FORAMINOTOMY OR FACETECTOMY Lumbar radiculopathy 10/22/2023 13:25 EDT LAMINECTOMY, SPINE, WITH FACETECTOMY AND FORAMINOTOMY, ADDITIONAL LEVEL FOLLOWING INITIAL LEVEL Lumbar radiculopathy 10/22/2023 13:25 EDT documented as of this encounter Visit Diagnoses Diagnosis Preventative health care- Primary Routine general medical examination at a health care facility Need for Tdap vaccination Need for prophylactic vaccination with combined xwhakyjyjh-iunhgnr-odxlaiajd (DTP) vaccine Cervical radiculopathy Brachial neuritis or radiculitis nos Lumbar radiculopathy Thoracic or lumbosacral neuritis or radiculitis, unspecified documented in this encounter Discontinued Medications Medication Sig Discontinue Reason Start Date End Da te baclofen (LIORESAL) 10 mg tablet Take 10 mg by mouth 2 times daily. Patient Stopped Taking 07/03/2022 documented as of this encounter Orders Immunization/Injection Count Last Ordered Date First Ordered Date COVID-19 MRNA-LNP BIVALENT V ACCINE ([employer] BIVALENT BOOSTER) PF 0.3 ML IM (12 YRS+) 1 07/03/2022 TDAP VACCINE =>7YO IM 1 07/03/2022 documented in this encounter Care Teams Stars Specialist Relationship Specialty Start Date End Date Galilea Mars NP [address] [place] [phone] PCP - General 09/16/21 documented as of this encounter
--- OUTSIDE RECORDS SUMMARY | 2023-10-19 15:34 | XMS_ITS | Encounter Summary ---
Author Organization [facility] Address [address] [place] [address] Care Team Providers Care Steward/Stewardess Second Name Role Phone Bri Murphy PA-C Primary Care Provider [phone] Encounter Details Date Type Department Care Team (Latest Contact Info) Description 08/31/2021 11:55 EDT Phlebotomy Only [facility] - [employer] [facility] [address] [place] [address] Preoperative testing Social History Tobacco Use Types Packs/Day Years [...] care, and heating? Not hard at all 07/02/2020 PHQ-2 Answer Date Recorded PHQ-2 SUBTOTAL 1 06/19/2020 Exercise Vital Sign Answer Date Recorde d [...] the money to buy more. Never true 07/03/19 21 Within the past 12 months, t he food you bought just didn't last and you didn't have money to get more. Never true 07/02/2020 PRAPARE - Transportation Answer Date Re corded In the past 12 months, has l ack of transportation kept you from medical appointments or from getting medications? No 06/14 In the past 12 months, has l ack of transportation kept you from meetings, work, or from getting things needed for daily living? No 07/02/2020 Housing Stability Vital Sign Answer Kameron e Recorded In the last 12 months, was t here a time when you were not able to pay the mortgage or rent on time? No 06/19/2020 In the last 12 months, how many places have you lived? 1 06/19/2020 In the last 12 months, was t here a time when you did not have a steady place to sleep or slept in a alf (including now)? No 06/19/2020 Interpersonal Safety Answer Date Record ed Physically Hurt Never 10/27/2019 Verbally Threaten Never 10/27/2019 Education Answer Date Recorded What is the highest level of school you have completed or the highest degree you have received? Master's degree (e.g., MA, MS, Joanne, MEd, LPN PER DIEM, LILA) 06/19/2020 Sex and Gender Information Value Date Recorded Sex Assigned at Female 10/08/2022 13:26 EDT Gender Identity Female 07/29/2021 16:35 EDT Sexual Orientation Straight 10/08/2022 13 :26 EDT COVID-19 Exposure Response Date Recorded In the last 10 days, have yo u been in contact with someone who was confirmed or suspected to have Coronavirus/COVID-19? No / Unsure 08/08/2021 9:10 EDT documented as of this encounter Plan of Treatment Upcoming Encounters Date Type Department Care Team (Late st Contact Info) Description 10/22/2023 13:25 EDT Hospital Encounter [facility] OR [address] [place] [address] [id number] Walker Pride MD [address] [place] [phone] 10/22/2023 13:25 EDT - 10/22/2023 17:00 EDT Surgery [facility] OR [address] [place] [address] [id number] Walker Pride MD [address] [place] [address] [phone] Left L34 decompression, redo left L45 decompression [24507 (CPT??)] 11/22/2023 10:00 EDT Post-op Visit [facility] Neurosurgery - [address] [phone] Madiha Hurtado NP [address] [place] [phone] Scheduled Procedures Name Priority Associated Diagnoses Date/Ti me LAMINECTOMY, SPINE, LUMBAR, 1 LEVEL, WITH FORAMINOTOMY OR FACETECTOMY Lumbar radiculopathy 10/22/2023 13:25 EDT LAMINECTOMY, SPINE, WITH FACETECTOMY AND FORAMINOTOMY, ADDITIONAL LEVEL FOLLOWING INITIAL LEVEL Lumbar radiculopathy 10/22/2023 13:25 EDT documented as of this encounter Procedures Procedure Name Priority Date/Time Associated Diagnosis Comments ZZCOVID-19 TEST [facility] PCR Today 08/31/2021 14:54 EDT Preoperative testing COVID-19 TESTING Routine 08/31/2021 14:5 4 EDT Preoperative testing documented in this encounter Results * COVID-19 TEST [facility] PCR (08/31/2021 14:54 EDT) Swab BOTH ANTERIOR NARES / Unknown Swab / Unknown 08/31/2021 14:54 EDT 08/31/2021 14:54 EDT Walker Pride MD MICROBIOLOGY - [facility] ORDERABLES [facility] [address] [place] [phone] * COVID-19 TESTING (08/31/2021 14:54 EDT) COVID-19 rt-PCR Result Negative Negative 09/01/2021 15:25 EDT [facility] Comment: This test has not been FDA cleared or approved. This test has been authorized by FDA under an EUA for use by authorized laboratories. This test has been authorized only for detection of nucleic acid from 2019-nCoV, not for any other viruses or pathogens. This test is only authorized for the duration of the declaration that circumstances exist justifying the authorization of emergency use of in vitro diagnostic tests for detection and/or diagnosis of 2019-nCoV under section 564(b)(1) of Act, 21 U.S.C ?? 360bbb-3(b) (1), unless the authorization is terminated or revoked sooner. Negative results do not preclude 2019-nCoV infection and should not be used as the sole basis for treatment or other patient management decisions. Negative results must be combined with clinical observations, patient history, and epidemiological information. Testing was performed using the igor SARS-CoV-2 assay ([employer] on the Igor 6800 System Performing Lab Igor 6800 [facility] 09/01/2021 15:25 EDT [facility] Swab BOTH ANTERIOR NARES / Unknown Swab / Unknown 08/31/2021 14:54 EDT 08/31/2021 14:54 EDT Walker Pride MD MICROBIOLOGY - [facility] ORDERABLES Performing Organization Address City/State/[facility] Co de Phone Number [facility] [address] [place] [address] documented in this encounter Visit Diagnoses Diagnosis Preoperative testing Preoperative examination, unspecified Lumbar radiculopathy Thoracic or lumbosacral neuritis or radiculitis, unspecified documented in this encounter Care Teams Steward/Stewardess Second Relationship Specialty Start Date End Date Bri Murphy PA-C [address] [facility] [address] [place] [phone] PCP - General Internal Medicine - Primary Care 10/16/19 09/15/21 documented as of this encounter
--- OUTSIDE RECORDS SUMMARY | 2023-10-19 15:34 | XMS_ITS | Encounter Summary ---
Author Organization [facility] Address [address] [place] [address] Care Team Providers Care Account Support Specialist Name Role Phone Bri Murphy PA-C Primary Care Provider [phone] Reason for Visit * Reason Comments Pre-op Exam Herniated disc repai r on 09/03/[address] Pride. No EKG needed due to pt's age. Encounter Details Date Type Department Care Team (Latest Contact Info) Description 08/14/2021 13:00 EDT Office Visit [facility] - [address] [place] [address] Bri Murphy PA-C [address] [place] [phone] Pre-operative examination (Primary Dx); Lumbosacral radiculopathy at L5; L4-L5 disc bulge Social History Tobacco Use Types Packs/Day Years [...] in a nursing home (including now)? No 06/19/2020 Interpersonal Safety Answer Date Record ed Physically Hurt Never 10/27/2019 Verbally Threaten Never 10/27/2019 Education Answer Date Recorded What is the highest level of school you have completed or the highest degree you have received? Master's degree (e.g., MA, MS, Joanne, MEd, STEEL POST INSTALLER, LILA) 06/19/2020 Sex and Gender Information Value [...] 9:10 EDT documented as of this encounter Last Filed Vital Signs Vital Sign Reading Time Taken Comments Blood Pressure 131/74 08/14/2021 1257 EDT Pulse 69 08/14/2021 1257 EDT Temperature 36.2 ??C (97.2 ??F) 08/14/2021 1257 EDT Respiratory Rate 16 08/14/2021 1257 EDT Oxygen Saturation - - Inhaled Oxygen Concentration - - Weight - - Height - - Body Mass Index - - documented in this encounter Ordered Prescriptions Prescription Sig Dispensed Refills Start Date End Da te clotrimazole-betamethason e (LOTRISONE) cream Apply to affected areas on hands twice daily 45 g 1 08/14/2021 07/15/2023 documented in this encounter Progress Notes * Bri Murphy PA-C - 08/14/2021 1300 EDT Preoperative H&P Chief Complaint: Pre-op Exam (Herniated disc repair on 09/03/[address] Pride. No EKG needed due to pt's age.) Planned Procedure: Left L4-5 microdiscectomy Surgeon: Walker Pride MD Planned Procedure Date: 09/03/2021 Problem List Available or Initiated: yes HISTORY OF PRESENT ILLNESS: I am seeing this patient in Consultation for a preoperative exam for Dr. Pride. Teri Toribio otis 31 y.o., female, with significant left-sided low back pain with radiculopathy. She has not responded to conservative measures including epidural injections. She currently has to use crutches to ambulate as the pain is so severe in her left leg. Prior h/o of anesthetic complications: yes with conscious sedation Prior h/o bleeding problems: no Prior h/o DVT/PE: no Family history of anesthetic complications, bleeding problems or DVT/PE: no. Cardiovascular or pulmonary risk factors: positive family history Patient Active Problem List Diagnosis Date Noted ??? L4-L5 disc bulge 02/16/2021 06/03/21: L4-L5 epidural steroid injection 03/24/2021: LTFESI L5 left at [facility] ??? Migraine with aura and without status migrainosus, not intractable 08/21/2020 ??? Lumbosacral radiculopathy at L5 08/08/2021 Added automatically from request for surgery [id number] ??? Obsessive-compulsive disorder 09/08/2012 ??? Constipation by delayed colonic transit 06/28/2009 ??? Contraceptive management 06/25/2009 History reviewed. No pertinent past medical history. Past Surgical History: Procedure Laterality Date ??? WISDOM TOOTH EXTRACTION Family History Problem Relation Age of Onset ??? Melanoma Maternal Aunt ??? Melanoma Maternal Aunt ??? MS Mother ??? Breast Cancer Mother 62 ??? Thyroid Disease Mother ??? Diabetes Father ??? Heart Attack Father 65 s/p stents ??? Stroke Father ??? High Cholesterol Father ??? High Blood Pressure Father ??? Atrial fibrillation Maternal Grandmother ??? Tuberculosis Maternal Grandfather Social History Tobacco Use ??? Smoking status: Never Smoker ??? Smokeless tobacco: Never Used Substance Use Topics ??? Alcohol use: Yes Comment: socially No Known Allergies Current Outpatient Medications Medication ??? baclofen (LIORESAL) 10 mg tablet ??? clotrimazole-betamethasone (LOTRISONE) cream ??? gabapentin (NEURONTIN) 300 mg capsule ??? levonorgestrel (MIRENA) 20 mcg/24 hr (5 years) IUD ??? Multivitamins with Minerals tablet tablet ??? riboflavin, vitamin B2, 400 mg tablet ??? sertraline (ZOLOFT) 100 mg tablet No current facility-administered medications for this visit. REVIEW OF SYSTEMS: unremarkable except as noted in the HPI PHYSICAL EXAMINATION: BP 131/74 Pulse 69 Temp 36.2 ??C (97.2 ??F) (Tympanic) Resp 16 Organ system Neg Pos Not examined Details Constitution/General x EENT & Mouth x Neck/Thyroid x Skins,nodes, glands x Respiratory x Heart x Peripheral Vascular x Breasts and Axillae x Abdomen x Scrotum/testes x Pelvic x Rectal x Musculoskeletal x Neurologic x LABS: N/A EKG: N/A Impression: Pt is a healthy 31-year-old female with significant lumbosacral radiculopathy secondary to disc bulge at low risk for the proposed surgery. Revised Cardiac Risk Index: 0 risk factors. Plan: Anesthesia per surgeon, pain management per surgeon, antibiotics per surgeon. Medicines which should be stopped 5-7 days prior to surgery are multivitamin and any NSAIDs. Bri Murphy PA-C 08/14/2021 13:18 Revised Cardiac Risk Index (Sandra - six independent predictors of cardiac complications): 1. High risk surgery (vascular, intraperitoneal, intrathoracic) 2. History of CAD (history of IL or a positive ETT, current ischemic chest pain, use of nitrates, or Q waves on ECG with pathological Q waves. (Don't count previous CABG unless another of the factorsis present)) 3. Hx CHF 4. Hx Stroke 5. Cr >2.0 mg/dl 6. DM on insulin No risk factors 0.4 to 1.0% vs <1% when treated with beta blockers One to two risk factors 2.2 to 6.6% vs 0.8 to 1.6% when treated with beta blockers Three or more risk factors ----- >9% vs >3% when treated with beta blockers Patient requires endocarditis prophylaxis (see guideline summary below): not applicable. Perioperative beta-tom recommendation (see guideline summary below): no - betablocker not indicated. GENERAL PREOP INSTRUCTIONS: Proceed with surgery as planned. Call surgeon if develops respiratory illness, fever, or other illness. Letter sent to requesting surgeon listed above Portions of this document have been prepared with speech recognition software or keyboard senior database programmer techniques. Minor irregularities or keyboarding misprints may be present. SUMMARY OF GUIDELINES: Endocarditis prophylaxis indications: Antibiotics are indicated for prosthetic heart materials (notroutine MVP), uncorrected congenital heart anomalies, history of endocarditis; and only for surgeries of mouth, respiratory tract, or infected tissue. Options for a one-time oral dose of antibiotic taken 30 - 60 minutes prior to the procedure include amoxicillin 2 grams, clindamycin 600 mg, or azithromycin 500 mg. Guideline Title: Prevention of Infective Endocarditis Guidelines From the [place] [employer]: A Guideline From the [place] [employer] Rheumatic Fever, Endocarditis, and Kawasaki Disease Committee, [place] on Cardiovascular Disease in the [place], and the [place] on Clinical Cardiology, [place] on Cardiovascular Surgery and Anesthesia, and the Quality of Care and Outcomes Research Interdisciplinary Working Group. Please see Circulation. 2007;116:2031-6016 for the detailed indications. Joan-operative betablocker (BB) indications: For patients already on BB for angina, arrhythmia, or HTN continue the BB (Class I). For patients not on BB, consider adding 1 week prior to surgery for vascular surgery in patients with CAD or multiple risk factors; or CHD or multiple risk factors undergoing intermediate - to high-risk procedures (Class IIa). Consider continuing the BB 2-4 weeks post-operatively. Otherwise, starting a perioperative betablocker may be harmful. Guideline Title: 2009 ACCF/AHA focused update on perioperative beta blockade incorporated into the ACC/AHA 2007 guidelines on perioperative cardiovascular evaluation and care for noncardiac surgery. A report of the [place] [employer] Foundation/[place] [employer] Task Force on Practice Guidelines. Please see J Am Malrys Cardiol. 2009; Feb 05;54(22):g20-k378 for the detailed indications. documented in this encounter Plan of Treatment Upcoming Encounters Date Type Department Care Team (Late st Contact Info) Description 10/22/2023 13:25 EDT Hospital Encounter [facility] OR [address] [place], [place] [phone] Walker Pride MD [address] [facility], [address] [place] [phone] 10/22/2023 13:25 EDT - 10/22/2023 17:00 EDT Surgery [facility] OR [address] [place], [place] 510251 Walker Pride MD [address] [facility], [facility], [address] [place] [phone] Left L34 decompression, redo left L45 decompression [[id number] (CPT??)] 11/22/2023 10:00 EDT Post-op Visit [facility] Neurosurgery - [address] [phone] Madiha Hurtado NP [address] [facility], [facility], [address] [place] [phone] Scheduled Procedures Name Priority Associated Diagnoses Date/Ti me LAMINECTOMY, SPINE, LUMBAR, 1 LEVEL, WITH FORAMINOTOMY OR FACETECTOMY Lumbar radiculopathy 10/22/2023 13:25 EDT LAMINECTOMY, SPINE, WITH FACETECTOMY AND FORAMINOTOMY, ADDITIONAL LEVEL FOLLOWING INITIAL LEVEL Lumbar radiculopathy 10/22/2023 13:25 EDT documented as of this encounter Visit Diagnoses Diagnosis Pre-operative examination- Primary Preoperative examination, unspecified Lumbosacral radiculopathy at L5 Thoracic or lumbosacral neuritis or radiculitis, unspecified L4-L5 disc bulge Displacement of lumbar intervertebral disc without myelopathy Lumbar radiculopathy Thoracic or lumbosacral neuritis or radiculitis, unspecified documented in this encounter Care Teams Account Support Specialist Relationship Specialty Start Date End Date Bri Murphy PA-C [address] [place] [phone] PCP - General Internal Medicine - Primary Care 10/16/19 09/15/21 documented as of this encounter
--- OUTSIDE RECORDS SUMMARY | 2023-10-19 15:34 | XMS_ITS | Encounter Summary ---
Author Organization [facility] Address [address] [place] [address] Care Team Providers Care Sheet Rock Installation Helper Name Role Phone Bri Murphy PA-C Primary Care Provider [phone] Reason for Visit * Reason Onset Date Comments Medications Refill 08/26/2021 Encounter Details Date Type Department Care Team (Late st Contact Info) Description 08/26/2021 Refill [facility] Adult Primary Care - [address] [place] [address] Bri Murphy PA-C [address] [place] [phone] Medications Refill Social History Tobacco Use Types [...] slept in a penitentiary (including now)? No 06/19/2020 Interpersonal Safety Answer Date Record ed Physically Hurt Never 10/27/2019 Verbally Threaten Never 10/27/2019 Education Answer Date Recorded What is the highest level of school you have completed or the highest degree you have received? Master's degree (e.g., MA, MS, Joanne, MEd, FLAME HARDENER, LILA) 06/19/2020 Sex and Gender Information Value [...] 9:10 EDT documented as of this encounter Ordered Prescriptions Prescription Sig Dispensed Refills Start Date End Da te sertraline (ZOLOFT) 100 mg tablet Take 1 Tablet by mouth daily. 90 Tablet 3 08/26/2021 11/05/2022 documented in this encounter Miscellaneous Notes * Telephone Encounter - Shi Dillon - 08/26/2021 1525 EDT Requested Prescriptions Pending Prescriptions Disp Refills ??? sertraline (ZOLOFT) 100 mg tablet 90 Tablet 1 Sig: Take 1 Tablet by mouth daily. [email or web address] Confirmed Pharmacy? Yes Patient out of medication? No Last Refill Date: 09.12.20 Refills left? (explain exceptions requiring early refill) No Recent Visits Date Type Provider Dept 08/14/21 Office Visit Bri Murphy PA-C [facility] 07/02/20 Office Visit Bri Murphy PA-C [facility] Showing recent visits within past 540 days with a meds authorizing provider and meeting all other requirements Future Appointments Date Type Provider Dept 09/29/21 Appointment Galilea Mars NP [facility] Showing future appointments within next 150 days with a meds authorizing provider and meeting all other requirements Future appointment: Already Scheduled Shi Dillon 08/26/2021 15:25 documented in this encounter Plan of Treatment Upcoming Encounters Date Type Department Care Team (Late st Contact Info) Description 10/22/2023 13:25 EDT Hospital Encounter [facility] OR [address] [place] [address] [phone] Walker Pride MD [address] [place] [address] [phone] 10/22/2023 13:25 EDT - 10/22/2023 17:00 EDT Surgery [facility] OR [address] [place] [address] [phone] Walker Pride MD [address] [place] [address] [phone] Left L34 decompression, redo left L45 decompression [[id number] (CPT??)] 11/22/2023 10:00 EDT Post-op Visit [facility] Neurosurgery - [address] [phone] Madiha Hurtado NP [address] [place] [phone] Scheduled Procedures Name Priority Associated Diagnoses Date/Ti me LAMINECTOMY, SPINE, LUMBAR, 1 LEVEL, WITH FORAMINOTOMY OR FACETECTOMY Lumbar radiculopathy 10/22/2023 13:25 EDT LAMINECTOMY, SPINE, WITH FACETECTOMY AND FORAMINOTOMY, ADDITIONAL LEVEL FOLLOWING INITIAL LEVEL Lumbar radiculopathy 10/22/2023 13:25 EDT documented as of this encounter Visit Diagnoses Not on filedocumented in this encounter Discontinued Medications Medication Sig Discontinue Reason Start Date End Da te sertraline (ZOLOFT) 100 mg tablet Take 1 Tablet by mouth daily. Reorder 09/12/2020 08/26/2021 documented as of this encounter Care Teams Sheet Rock Installation Helper Relationship Specialty Start Date End Date Bri Murphy PA-C [address] [place] [phone] PCP - General Internal Medicine - Primary Care 10/16/19 09/15/21 documented as of this encounter
--- OUTSIDE RECORDS SUMMARY | 2023-10-19 15:34 | XMS_ITS | Encounter Summary ---
Author Organization [facility] Address [address] [place] [address] Care Team Providers Care Broth Mixer Name Role Phone Bri Murphy PA-C Primary Care Provider [phone] Reason for Visit * Reason Onset Date Comments Discuss Surgery 09/02/2021 Encounter Details Date Type Department Care Team (Late st Contact Info) Description 09/02/2021 Telephone [facility] Neurosurgery - [facility] [address] [place] [address] Walker Pride MD 111 [facility], [address] [place] [phone] Discuss Surgery Social History Tobacco Use Types Packs/Day Years [...] Master's degree (e.g., MA, MS, Joanne, MEd, ANESTHESIOLOGY CRNA, LILA) 06/19/2020 Sex and Gender Information Value [...] 9:10 EDT documented as of this encounter Miscellaneous Notes * Telephone Encounter - Jael Knight - 09/02/2021 1045 EDT Confirmed the following surgery details with the patient: Surgery time: 12:55pm Arrival time: 10:55am Instructions were given to have nothing to eat after midnight/clear liquids(water,apple juice, sports drinks) up to 2 hours prior to the arrival time for surgery - 8:55am documented in this encounter Plan of Treatment Upcoming Encounters Date Type Department Care Team (Late st Contact Info) Description 10/22/2023 13:25 EDT Hospital Encounter [facility] OR [address] [place] [address] [phone] Walker Pride MD [address] [place] [address] [phone] 10/22/2023 13:25 EDT - 10/22/2023 17:00 EDT Surgery [facility] OR [address] [place] [address] [phone] Walker Pride MD [address] [place] [phone] Left L34 decompression, redo left L45 decompression [[id number] (CPT??)] 11/22/2023 10:00 EDT Post-op Visit [facility] Neurosurgery - [facility] [address] [place], [place] [address] Madiha Hurtado NP [address] [facility], [facility], [address] [place] [phone] Scheduled Procedures Name Priority Associated Diagnoses Date/Ti me LAMINECTOMY, SPINE, LUMBAR, 1 LEVEL, WITH FORAMINOTOMY OR FACETECTOMY Lumbar radiculopathy 10/22/2023 13:25 EDT LAMINECTOMY, SPINE, WITH FACETECTOMY AND FORAMINOTOMY, ADDITIONAL LEVEL FOLLOWING INITIAL LEVEL Lumbar radiculopathy 10/22/2023 13:25 EDT documented as of this encounter Visit Diagnoses Not on filedocumented in this encounter Care Teams Broth Mixer Relationship Specialty Start Date End Date Bri Murphy PA-C [address] [place] [phone] PCP - General Internal Medicine - Primary Care 10/16/19 09/15/21 documented as of this encounter
--- OUTSIDE RECORDS SUMMARY | 2023-10-19 15:34 | XMS_ITS | Encounter Summary ---
Author Organization [facility] Address [address] [place] [address] Care Team Providers Care Video Clerk Name Role Phone Bri Murphy PA-C Primary Care Provider [phone] Galilea Mars NP Primary Care Provider [phone] Reason for Visit * Reason Onset Date Comments Post-OP Follow Up 09/09/2021 Encounter Details Date Type Department Care Team (Late st Contact Info) Description 09/09/2021 Telephone [facility] Neurosurgery - [address] [address] Destinee Tomlin RN Post-OP Follow Up Social History Tobacco Use Types Packs/Day Years [...] care, and heating? Not hard at all 09/16/2021 PHQ-2 Answer Date Recorded PHQ-2 SUBTOTAL 2 09/16/2021 Exercise Vital Sign Answer Date Recorde d [...] the money to buy more. Never true 09/17/19 22 Within the past 12 months, t he food you bought just didn't last and you didn't have money to get more. Never true 09/16/2021 PRAPARE - Transportation Answer Date Re corded In the past 12 months, has l ack of transportation kept you from medical appointments or from getting medications? No 07/2021 In the past 12 months, has l ack of transportation kept you from meetings, work, or from getting things needed for daily living? No 09/16/2021 Housing Stability Vital Sign Answer Kameron e Recorded In the last 12 months, was t here a time when you were not able to pay the mortgage or rent on time? No 09/16/2021 In the last 12 months, how many places have you lived? 1 09/16/2021 In the last 12 months, was t here a time when you did not have a steady place to sleep or slept in a fdc (including now)? No 09/16/2021 Interpersonal Safety Answer Date Record ed How often does anyone, jason sanchez family, hit, punch or physically hurt you? Never 09/16/2021 How often does anyone, inclu ding family, insult, scream, curse or threaten to hurt you? Never 09/16/2021 Education Answer Date Recorded What is the highest level of school you have completed or the highest degree you have received? Master's degree (e.g., MA, MS, Joanne, MEd, ANGER CONTROL COUNSELOR, LILA) 06/19/2020 Sex and Gender Information Value Date Recorded Sex Assigned at Female 10/08/2022 13:26 EDT Gender Identity Female 07/29/2021 16:35 EDT Sexual Orientation Straight 10/08/2022 13 :26 EDT documented as of this encounter Miscellaneous Notes * Telephone Encounter - Destinee Tomlin RN - 09/18/2021 1622 EDT Return call not received from patient. * Telephone Encounter - Destinee Tomlin RN - 09/09/2021 1225 EDT PRE-OP DIAGNOSIS = Left L45 disc herniation, Left L5 radiculopathy POST-OP DIAGNOSIS = same as above PROCEDURE = Left L45 lateral recess decompression, microdiscectomy SURGEON = Walker Pride MD THERMAL MOLDER = Jaspal Roa MD ANESTHESIA = GETA COMPLICATIONS = None FINDINGS = Root well decompressed at end of case EBL = 10 cc IVF = See anesthesia record UOP = No higgins SPECIMENS/CULTURES = None DRAINS = None SKIN = glue DISPO = PACU then home ?? Left message for patient to return call to triage. documented in this encounter Plan of Treatment Upcoming Encounters Date Type Department Care Team (Late st Contact Info) Description 10/22/2023 13:25 EDT Hospital Encounter [facility] OR [address] [place] [address] Walker Pride MD [address] [place] [address], [facility], [address] [place] [address] 10/22/2023 13:25 EDT - 10/22/2023 17:00 EDT Surgery [facility] OR [address] [place], [place] [phone] Walker Pride MD 111 [facility], [facility], [address] [place] [phone] Left L34 decompression, redo left L45 decompression [88979 (CPT??)] 11/22/2023 10:00 EDT Post-op Visit [facility] Neurosurgery - [facility] [address] [place] [address] Madiha Hurtado NP [address] [place] [address], [address] [place] [phone] Scheduled Procedures Name Priority Associated Diagnoses Date/Ti me LAMINECTOMY, SPINE, LUMBAR, 1 LEVEL, WITH FORAMINOTOMY OR FACETECTOMY Lumbar radiculopathy 10/22/2023 13:25 EDT LAMINECTOMY, SPINE, WITH FACETECTOMY AND FORAMINOTOMY, ADDITIONAL LEVEL FOLLOWING INITIAL LEVEL Lumbar radiculopathy 10/22/2023 13:25 EDT documented as of this encounter Visit Diagnoses Not on filedocumented in this encounter Care Teams Video Clerk Relationship Specialty Start Date End Date Bri Murphy PA-C [id number] [facility] [facility] [address] [place] [phone] PCP - General Internal Medicine - Primary Care 10/16/19 09/15/21 Galilea Mars NP [address] [place] [address] PCP - General 09/16/21 documented as of this encounter
--- OUTSIDE RECORDS SUMMARY | 2023-10-19 15:34 | XMS_ITS | Encounter Summary ---
Author Organization [facility] Address [address] [place] [address] Care Team Providers Care Logistics Engineering Manager Name Role Phone Bri Murphy PA-C Primary Care Provider [phone] Reason for Visit * Reason Onset Date Comments Discuss Surgery 08/08/2021 Encounter Details Date Type Department Care Team (Late st Contact Info) Description 08/08/2021 Telephone [facility] Neurosurgery - [facility] [address] [place], [place] [phone] Walker Pride MD 111 [facility], [address] [place] [address] Discuss Surgery Social History Tobacco [...] Master's degree (e.g., MA, MS, Joanne, MEd, LAB ASST, LILA) 06/19/2020 Sex and Gender Information Value [...] * Telephone Encounter - Jael Knight - 08/08/2021 1446 EDT Teri returned my call and was offered a surgery date of 09/03 which she accepted. She is aware that she will need a pre-op physical and will contact her primary care physician to get this scheduled. She is also aware that she will need a Covid test on 08/31. * Telephone Encounter - Jael Knight - 08/08/2021 1433 EDT Called and LM for Teri asking her to return my call to discuss scheduling surgery with Dr. Pride. documented in this encounter Plan of Treatment Upcoming Encounters Date Type Department Care Team (Late st Contact Info) Description 10/22/2023 13:25 EDT Hospital Encounter [facility] OR [address] [place] [address] Walker Pride MD [address] [place] [address], [address] [place] [phone] 10/22/2023 13:25 EDT - 10/22/2023 17:00 EDT Surgery [facility] OR [address] [place], [place] [address] Walker Pride MD 111 [facility], [facility], [address] [place] [phone] Left L34 decompression, redo left L45 decompression [[id number] (CPT??)] 11/22/2023 10:00 EDT Post-op Visit [facility] Neurosurgery - [facility] [address] [place], [place] [phone] Madiha Hurtado NP 111 [facility], [facility], [address] [place] [address] Scheduled Procedures Name Priority Associated Diagnoses Date/Ti me LAMINECTOMY, SPINE, LUMBAR, 1 LEVEL, WITH FORAMINOTOMY OR FACETECTOMY Lumbar radiculopathy 10/22/2023 13:25 EDT LAMINECTOMY, SPINE, WITH FACETECTOMY AND FORAMINOTOMY, ADDITIONAL LEVEL FOLLOWING INITIAL LEVEL Lumbar radiculopathy 10/22/2023 13:25 EDT documented as of this encounter Results * COVID-19 TESTING (08/31/2021 14:54 EDT) COVID-19 rt-PCR Result Negative Negative 09/01/2021 15:25 EDT [facility] Comment: This test has not [...] epidemiological information. Testing was performed using the darleen SARS-CoV-2 assay ([employer] on the Darleen 6800 System Performing Lab Darleen [address] [facility] 09/01/2021 15:25 EDT [facility] Swab BOTH ANTERIOR NARES / Unknown Swab / Unknown 08/31/2021 14:54 EDT 08/31/2021 14:54 EDT Walker Pride MD MICROBIOLOGY - [facility] ORDERABLES [facility] [address] [place] [address] documented in this encounter Visit Diagnoses Diagnosis Preoperative testing- Primary Preoperative examination, unspecified Lumbar radiculopathy Thoracic or lumbosacral neuritis or radiculitis, unspecified documented in this encounter Care Teams Logistics Engineering Manager Relationship Specialty Start Date End Date Bri Murphy PA-C [address] [place] [phone] PCP - General Internal Medicine - Primary Care 10/16/19 09/15/21 documented as of this encounter
--- OUTSIDE RECORDS SUMMARY | 2023-10-19 15:34 | XMS_ITS | Encounter Summary ---
Author Organization [facility] Address [address] [place] [address] Care Team Providers Care Inspector Rubber Stamp Die Name Role Phone Galilea Mars NP Primary Care Provider [phone] Reason for Visit * Reason Onset Date Comments Advice Only 01/15/2022 Encounter Details Date Type Department Care Team (Late st Contact Info) Description 01/15/2022 Telephone [facility] Neurosurgery - [facility] [address] [place] [address] Destinee Tomlin, marina sales and service supervisor Only Social History Tobacco Use Types Packs/Day Years [...] place to sleep or slept in a correction (including now)? No 09/30/2021 Interpersonal Safety Answer [...] Master's degree (e.g., MA, MS, Joanne, MEd, IT SUPPORT SPECIALIST, LILA) 06/19/2020 Sex and Gender Information Value Date Recorded Sex Assigned at Female 10/08/2022 13:26 EDT Gender Identity Female 07/29/2021 16:35 EDT Sexual Orientation Straight 10/08/2022 13 :26 EDT documented as of this encounter Miscellaneous Notes * Telephone Encounter - Mackenzie Freitas RN - 01/16/2022 1118 EDT Outgoing call to Teri to discuss. Teri states that she has been having neck pain that goes down into her traps and left arm which began two days ago. She states this is a problem that has been coming and going since 2013, but the last time that this occurred was fall 2020 prior to her GERARDO. No pre-surgical symptoms. Left arm intermittent tingling, denies any weakness, dropping objects, or weakness. No prior cervical surgery history. She took advil and some leftover gabapentin she had which helped. Recommended that she reach out to her PCP to discuss pain management including gabapentin and to see if PT or imaging is necessary. Advised that if her PCP wants her to see us she will need a new referral since this is a cervical issue and not a lumbar issue. Patient verbalized understanding with no barriers to learning and agrees with plan of care. Encouraged to call with any questions or concerns. DOS: Left L45 microdiscectomy on 09/03/21 * Telephone Encounter - Destinee Tomlin RN - 01/15/2022 1613 EDT Received call from the patient who states she has been having increasingly worsening neck pain and she would like to know if it is related to her back surgery. documented in this encounter Plan of Treatment Upcoming Encounters Date Type Department Care Team (Late st Contact Info) Description 10/22/2023 13:25 EDT Hospital Encounter [facility] OR [address] [place] [phone] Walker Pride MD [address] [place] [address], [facility] [address] [place] [phone] 10/22/2023 13:25 EDT - 10/22/2023 17:00 EDT Surgery [facility] OR [address] [place] [id number] Walker Pride MD [address] [place] [address], [facility] [address] [place] [phone] Left L34 decompression, redo left L45 decompression [[id number] (CPT??)] 11/22/2023 10:00 EDT Post-op Visit [facility] Neurosurgery - [address] [address] Madiha Hurtado NP [address] [place] [address], [facility] [address] [place] [phone] Scheduled Procedures Name Priority Associated Diagnoses Date/Ti me LAMINECTOMY, SPINE, LUMBAR, 1 LEVEL, WITH FORAMINOTOMY OR FACETECTOMY Lumbar radiculopathy 10/22/2023 13:25 EDT LAMINECTOMY, SPINE, WITH FACETECTOMY AND FORAMINOTOMY, ADDITIONAL LEVEL FOLLOWING INITIAL LEVEL Lumbar radiculopathy 10/22/2023 13:25 EDT documented as of this encounter Visit Diagnoses Not on filedocumented in this encounter Care Teams Inspector Rubber Stamp Die Relationship Specialty Start Date End Date Galilea Mars NP [address] [place] [phone] PCP - General 09/16/21 documented as of this encounter
--- OUTSIDE RECORDS SUMMARY | 2023-10-19 15:34 | XMS_ITS | Encounter Summary ---
Author Organization [facility] Address [address] [place] [address] Care Team Providers Care Space Operations Name Role Phone Bri Murphy PA-C Primary Care Provider [phone] Encounter Details Date Type Department Care Team (Late st Contact Info) Description 08/29/2021 Prep for Procedure [facility] Neurosurgery - [facility] [address] [place] [address] Omayra Montalvo, KARIME [address] [facility], [address] [place] [address] Social History Tobacco Use Types Packs/Day Years [...] slept in a mcc (including now)? No 06/19/2020 Interpersonal Safety Answer Date Record ed Physically Hurt Never 10/27/2019 Verbally Threaten Never 10/27/2019 Education Answer Date Recorded What is the highest level of school you have completed or the highest degree you have received? Master's degree (e.g., MA, MS, Joanne, MEd, DATA CENTER ARCHITECT, LILA) 06/19/2020 Sex and Gender Information Value [...] Info) Description 10/22/2023 13:25 EDT Hospital Encounter [facility] OR [address] [place] [phone] Walker Pride MD [address] [place] [phone] 10/22/2023 13:25 EDT - 10/22/2023 17:00 EDT Surgery [facility] OR [address] [place] [phone] Walker Pride MD [address] [place] [phone] Left L34 decompression, redo left L45 decompression [[id number] (CPT??)] 11/22/2023 10:00 EDT Post-op Visit [facility] Neurosurgery - [address] [address] Madiha Hurtado NP [address] [place] [phone] Scheduled Procedures Name Priority Associated Diagnoses Date/Ti me LAMINECTOMY, SPINE, LUMBAR, 1 LEVEL, WITH FORAMINOTOMY OR FACETECTOMY Lumbar radiculopathy 10/22/2023 13:25 EDT LAMINECTOMY, SPINE, WITH FACETECTOMY AND FORAMINOTOMY, ADDITIONAL LEVEL FOLLOWING INITIAL LEVEL Lumbar radiculopathy 10/22/2023 13:25 EDT documented as of this encounter Visit Diagnoses Not on filedocumented in this encounter Care Teams Space Operations Relationship Specialty Start Date End Date Bri Murphy PA-C [address] [place] [phone] PCP - General Internal Medicine - Primary Care 10/16/19 09/15/21 documented as of this encounter
--- OUTSIDE RECORDS SUMMARY | 2023-10-19 15:34 | XMS_ITS | Encounter Summary ---
Author Organization [facility] Address [address] [place] [address] Care Team Providers Care Epic Prelude Analyst Name Role Phone Bri Murphy PA-C Primary Care Provider [phone] Encounter Details Date Type Department Care Team (Latest Contact Info) Description 08/27/2021 13:20 EDT - 08/27/2021 23:59 EDT Hospital Encounter [facility] Main [place] Pre-Surgical Testing [address] [place] [address] Discharge Disposition: Home or Self Care Social [...] in a care home (including now)? No 06/19/2020 Interpersonal Safety Answer Date Record ed Physically Hurt Never 10/27/2019 Verbally Threaten Never 10/27/2019 Education Answer Date Recorded What is the highest level of school you have completed or the highest degree you have received? Master's degree (e.g., MA, MS, Joanne, MEd, WEIGHBRIDGE OPERATOR, LILA) 06/19/2020 Sex and Gender Information [...] - Inhaled Oxygen Concentration - - Weight 65.8 kg (145 lb) 08/27/2021 1556 EDT Height 162.6 cm (5' 4) 08/27/2021 1556 EDT Body Mass Index 24.89 08/27/2021 1556 EDT documented in this encounter Medications at Time of Discharge Medication Sig Dispensed Refills Start Date End Date acetaminophen (TYLENOL) 500 mg tablet Take 2 Tablets by mouth every 6 hours as needed for Pain. 09/03/2021 levonorgestreL (MIRENA) 20 mcg/24 hours (8 yrs) 52 mg IUD 1 Each by intrauterine route Once. 2016 Multivitamins with Minerals tablet tablet Take 1 Tablet by mouth daily. baclofen (LIORESAL) 10 mg tablet Take 10 mg by mouth 2 times daily. 07/03/2022 clotrimazole-betameth asone (LOTRISONE) cream Apply to affected areas on hands twice daily 45 g 1 08/14/2021 07/15/2023 gabapentin (NEURONTIN) 300 mg capsule Take 1 capsule by mouth 2 times daily. 60 capsule 05/02/2021 12/09/2021 methocarbamoL (ROBAXIN) 750 mg tablet Take 1 Tablet by mouth every 8 hours as needed for Muscle Spasms. 30 Tablet 09/03/2021 12/09/2021 oxyCODONE (ROXICODONE) 5 mg immediate release tablet Take 1 Tablet by mouth every 6 hours as needed for Pain. Daily Max: 20 mg 15 Tablet 09/03/2021 12/09/2021 riboflavin, vitamin B2, 400 mg tabletIndications:Sameer candie with aura and without status migrainosus, not intractable Take 1 Tab by mouth daily. 90 Tab 3 08/21/2020 09/02/2022 sertraline (ZOLOFT) 100 mg tablet Take 1 Tablet by mouth daily. 90 Tablet 3 08/26/2021 11/05/2022 documented as of this encounter Discharge Disposition Disposition Code Departure Means Destination Home or Self Care documented in this encounter Progress Notes * Noelle Duff RN - 08/27/2021 1320 EDT COVID 19 Screening Perioperative at time of PAT Please document by exception (only check those that apply). Have you had any of the following symptoms recently?no Yes Chronic ? Cough Shortness of breath or difficulty breathing Fever Chills Fatigue Muscle or body aches Severe Headache New loss of taste or smell Sore throat Congestion or runny nose Rash Nausea, vomiting, or diarrhea (rare in adults. More common in children) Please elaborate if yes: If a chronic symptom is reported use your judgement if an anesthesia review is needed. Have you been in close contact with someone who has been diagnosed with Covid 19 (within past 2 weeks)?no If yes, and is a member of your household, what was the date of their onset of symptoms/positive test? If above date is within 15 days of dos, place for anesthesia review. Have you tested positive in the last 90 days for COVID by PCR and or home test?no If yes: Home Test Date: PCR Date: PCR Test Location: Vaccination Status: __xx_ Pt states fully vaccinated, ___ Verified in chart ___ Pt states unvaccinated -Do not instruct patient regarding COVID testing, let [facility] coordinate this -Communicate status on yellow form for DOS REMIND PATIENT/parents of pediatric patients: Patients with a pending COVID-19 test are expected toremain masked and socially distanced at all times while at work or school, and refrain from going inside restaurants, bars, or other public areas where people are likely to be unmasked, or crowded public places. If patient develops any of these symptoms between now and their surgery date instruct them to call us back at [phone] to report symptoms Visitor Policy: Surgical & Procedural -Adult: 2 support people -Pediatrics: 2 support people - Inpatients are now permitted 2 support people at a time. One person is permitted to remain overnight (must be masked). - Pediatric Inpatients may 2 support people at a time. - Inpatient Psychiatry patients may have 2 (vaccinated) support people at a time - Outpatient visits: 2 support people for adults and pedi. (Exception: Cancer Center and [facility] Infusion- 1 support person) As a reminder, all support people are will be required to wear a mask that covers their nose and mouth for the entire time they are in the building. Anyone who cannot or will not wear a mask will be asked to leave. documented in this encounter OR Notes * Preprocedure Instructions - Noelle Duff RN - 08/27/2021 1320 EDT Teri Toribio has been instructed as follows regarding medication administration for the day of the scheduled procedure. Date of Surgery: 09-03-21 Instructions for Taking Medications Day of Surgery Medication Sig Last Dose Hold DOS Take DOS baclofen (LIORESAL) 10 mg tablet Take 10 mg by mouth 2 times daily. Yes, if needed clotrimazole-betamethasone (LOTRISONE) cream Apply to affected areas on hands twice daily HOLD gabapentin (NEURONTIN) 300 mg capsule Take 1 capsule by mouth 2 times daily. Patient taking differently: Take 300 mg by mouth 3 times daily. yes levonorgestrel (MIRENA) 20 mcg/24 hr (5 years) IUD 1 Each by intrauterine route once. 2016 Multivitamins with Minerals tablet tablet Take 1 Tab by mouth daily. Hold x 7 days riboflavin, vitamin B2, 400 mg tablet Take 1 Tab by mouth daily. Hold x 7 days sertraline (ZOLOFT) 100 mg tablet Take 1 Tablet by mouth daily. yes Instructed pt to hold her OTC supplements and NSAIDS x 7 days. Explained Ok to take tylenol. Reviewed bathing and fasting instructions. No barriers to learning noted. documented in this encounter Plan of Treatment Upcoming Encounters Date Type Department Care Team (Late st Contact Info) Description 10/22/2023 13:25 EDT Hospital Encounter [facility] [place] OR [address] [place] [address] Walker Pride MD [address] [place] [address], [address] [place] [phone] 10/22/2023 13:25 EDT - 10/22/2023 17:00 EDT Surgery [facility] OR [address] [place] [phone] Walker Pride MD [address] [place] [address], [address] [place] [phone] Left L34 decompression, redo left L45 decompression [[id number] (CPT??)] 11/22/2023 10:00 EDT Post-op Visit [facility] Neurosurgery - [address] [phone] Madiha Hurtado NP [address] [place] [address], [address] [place] [phone] Scheduled Procedures Name Priority Associated Diagnoses Date/Ti me LAMINECTOMY, SPINE, LUMBAR, 1 LEVEL, WITH FORAMINOTOMY OR FACETECTOMY Lumbar radiculopathy 10/22/2023 13:25 EDT LAMINECTOMY, SPINE, WITH FACETECTOMY AND FORAMINOTOMY, ADDITIONAL LEVEL FOLLOWING INITIAL LEVEL Lumbar radiculopathy 10/22/2023 13:25 EDT documented as of this encounter Visit Diagnoses Not on filedocumented in this encounter Care Teams Epic Prelude Analyst Relationship Specialty Start Date End Date Bri Murphy PA-C [address] [place] [phone] PCP - General Internal Medicine - Primary Care 10/16/19 09/15/21 documented as of this encounter
--- OUTSIDE RECORDS SUMMARY | 2023-10-19 15:34 | XMS_ITS | Encounter Summary ---
Author Organization [facility] Address [address] [place] [address] Care Team Providers Care Waste[employer] Plant Instructor Name Role Phone Bri Murphy PA-C Primary Care Provider [phone] Encounter Details Date Type Department Care Team (Latest Contact Info) Description 08/08/2021 Travel Social History Tobacco Use Types Packs/Day [...] place to sleep or slept in a halfway (including now)? No 06/19/2020 Interpersonal Safety Answer Date Record ed Physically Hurt Never 10/27/2019 Verbally Threaten Never 10/27/2019 Education Answer Date Recorded What is the highest level of school you have completed or the highest degree you have received? Master's degree (e.g., MA, MS, Joanne, MEd, SALES ASSOCIATE FISHING, [employer]) 06/19/2020 Sex and Gender Information Value [...] EDT Hospital Encounter [facility] [place] [address] [place] [address] [phone] Walker Pride MD [address] [place] [phone] 10/22/2023 13:25 EDT - 10/22/2023 17:00 EDT Surgery [facility] [place] [address] [place] [address] [phone] Walker Pride MD [address] [place] [phone] Left L34 decompression, redo left L45 decompression [35905 (CPT??)] 11/22/2023 10:00 EDT Post-op Visit [facility] Neurosurgery - [address] [phone] Madiha Hurtado NP [address] [place] [phone] Scheduled Procedures Name Priority Associated Diagnoses Date/Ti me LAMINECTOMY, SPINE, LUMBAR, 1 LEVEL, WITH FORAMINOTOMY OR FACETECTOMY Lumbar radiculopathy 10/22/2023 13:25 EDT LAMINECTOMY, SPINE, WITH FACETECTOMY AND FORAMINOTOMY, ADDITIONAL LEVEL FOLLOWING INITIAL LEVEL Lumbar radiculopathy 10/22/2023 13:25 EDT documented as of this encounter Visit Diagnoses Not on filedocumented in this encounter Care Teams [employer] Instructor Relationship Specialty Start Date End Date Bri Murphy PA-C [address] [place] [phone] PCP - General Internal Medicine - Primary Care 10/16/19 09/15/21 documented as of this encounter
--- OUTSIDE RECORDS SUMMARY | 2023-10-19 15:34 | XMS_ITS | Encounter Summary ---
Author Organization [facility] Address [address] [place] [address] Care Team Providers Care Drug Purchaser Name Role Phone Bri Murphy PA-C Primary Care Provider [phone] Galilea Mars NP Primary Care Provider [phone] Reason for Visit * Reason Onset Date Comments COVID-19 08/10/2021 scheduling Encounter Details Date Type Department Care Team (Late st Contact Info) Description 08/10/2021 Telephone [facility] - [facility] [address] [place] [address] Walker Pride MD [address] [facility], [facility] [address] [place] [phone] COVID-19 (scheduling) Social History Tobacco Use Types Packs/Day Years [...] ways by your partner or ex-partner? No 04 / Within the last year, have y ou [...] slept in a longterm (including now)? No 06/19/2020 Interpersonal Safety Answer Date Record ed Physically Hurt Never 10/27/2019 Verbally Threaten Never 10/27/2019 Education Answer Date Recorded What is the highest level of school you have completed or the highest degree you have received? 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 Left message requesting a call back at # [phone].Patient will need to be tested on 08/31, 3 days prior to procedure on 09/03. This is our 1st attempt at contacting the patient. documented in this encounter Plan of Treatment Upcoming Encounters Date Type Department Care Team (Late st Contact Info) Description 10/22/2023 13:25 EDT Hospital Encounter [facility] [place] [address] [place] [phone] Walker Pride MD [address] [place] [phone] 10/22/2023 13:25 EDT - 10/22/2023 17:00 EDT Surgery [facility] [place] [address] [place] [address] [phone] Walker Pride MD [address] [place] [phone] Left L34 decompression, redo left L45 decompression [96533 (CPT??)] 11/22/2023 10:00 EDT Post-op Visit [facility] Neurosurgery - [facility] [address] [place] [address] Madiha Hurtado NP [address] [facility], [address] [place] [phone] Scheduled Procedures Name Priority Associated Diagnoses Date/Ti me LAMINECTOMY, SPINE, LUMBAR, 1 LEVEL, WITH FORAMINOTOMY OR FACETECTOMY Lumbar radiculopathy 10/22/2023 13:25 EDT LAMINECTOMY, SPINE, WITH FACETECTOMY AND FORAMINOTOMY, ADDITIONAL LEVEL FOLLOWING INITIAL LEVEL Lumbar radiculopathy 10/22/2023 13:25 EDT documented as of this encounter Visit Diagnoses Not on filedocumented in this encounter Care Teams Drug Purchaser Relationship Specialty Start Date End Date Bri Murphy PA-C [id number] [place] [phone] PCP - General Internal Medicine - Primary Care 10/16/19 09/15/21 Galilea Mars NP [address] [place] [phone] PCP - General 09/16/21 documented as of this encounter
--- OUTSIDE RECORDS SUMMARY | 2023-10-19 15:34 | XMS_ITS | Encounter Summary ---
Author Organization [facility] Address [address] [place] [address] Care Team Providers Care Area Coordinator Name Role Phone Bri Murphy PA-C Primary Care Provider [phone] Reason for Visit * Auth/Cert Specialty Diagnoses / Procedures Referred By Liat mehta Referred To Contact Diagnoses Lumbosacral radiculopathy at L5 Procedures WA LAMNOTMY INCL W/DCMPRSN NRV ROOT 1 INTRSPC LUMBR Left L45 microdiscectomy Referral ID Status Reason Start Date Expiration Date Visits Re quested Visits Authorized [id number] 1 1 Encounter Details Date Type Department Care Team (Late st Contact Info) Description 09/03/2021 10:55 EDT - 09/03/2021 17:50 EDT Hospital Encounter [facility] OR [address] [place], [place] [phone] Walker Pride MD [address] [facility], [address] 5 [place] [address] Discharge Disposition: Home or Self Care Social [...] slept in a custodial (including now)? No 06/19/2020 Interpersonal Safety Answer Date Record ed Physically Hurt Never 10/27/2019 Verbally Threaten Never 10/27/2019 Education Answer Date Recorded What is the highest level of school you have completed or the highest degree you have received? 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, [employer]) 06/19/2020 Sex and Gender Information [...] Sign Reading Time Taken Comments Blood Pressure 95/62 09/03/2021 1715 EDT Pulse - - Temperature 36.5 ??C (97.7 ??F) 09/03/2021 1627 EDT Respiratory Rate 15 09/03/2021 1715 EDT Oxygen Saturation 97% 09/03/2021 1715 EDT Inhaled Oxygen Concentration - - Weight 73.6 kg (162 lb 4.1 oz) 09/03/2021 1126 E DT Height 163.8 cm (5' 4.5) 09/03/2021 1126 EDT Body Mass Index 27.42 09/03/2021 1126 EDT documented in this encounter Medications at [...] 12/09/2021 riboflavin, vitamin B2, 400 mg tabletIndications:Sameer schreiber with aura and without status migrainosus, not intractable Take 1 Tab by mouth daily. 90 Tab 3 08/21/2020 09/02/2022 sertraline (ZOLOFT) 100 mg tablet Take 1 Tablet by mouth daily. 90 Tablet 3 08/26/2021 11/05/2022 documented as of this encounter Ordered Prescriptions Prescription Sig Dispensed Refills Start Date End Da te acetaminophen (TYLENOL) 500 mg tablet Take 2 Tablets by mouth every 6 hours as needed for Pain. 09/03/2021 methocarbamoL (ROBAXIN) 750 mg tablet Take 1 Tablet by mouth every 8 hours as needed for Muscle Spasms. 30 Tablet 09/03/2021 12/09/2021 oxyCODONE (ROXICODONE) 5 mg immediate release tablet Take 1 Tablet by mouth every 6 hours as needed for Pain. Daily Max: 20 mg 15 Tablet 09/03/2021 12/09/2021 documented in this encounter Discharge Disposition Disposition Code Departure Means Destination Home or Self [facility] documented in this encounter Progress Notes * Macrina Gilliam MD - 09/03/2021 170 EDT Neurosurgery Progress Note Problems/ Left L45 disc herniation, Left L5 radiculopathy Procedures/ Left L45 lateral recess decompression, microdiscectomy (Dr. Pride, 09/03/21) Subjective/ Doing very well. Back Is sore, left leg pain is completely resolved. Objective/ BP 101/55 Temp 36.5 ??C (97.7 ??F) (Temporal) Resp 14 Ht 163.8 cm (64.5) Wt 73.6 kg (162 lb 4.1 oz) SpO2 94% BMI 27.42 kg/m?? Alert, awake Hip flexion full bl Knee flexion full bl Knee extension full bl Plantarflexion full bl Dorsiflexion full bl Sensation grossly intact BLE Incision cdi, dermabond in place Labs/ Assessment/ 31 y.o. female who presented to neurosurgery outpatient clinic with left leg pain in an L5 distribution. MR with left L4-5 disk herniation in the setting of global mild stenosis and lateral recess stenosis. Now POD0 from L45 lateral recess decompression and microdiscectomy. On exam neurologically intact. Plan/ PACU>Home MACRINA GILLIAM MD 09/03/2021 17:05 Neurosurgery Resident Page [phone] documented in this encounter H&P Notes * Jaspal Roa MD - 09/03/2021 1255 EDT The preoperative history and physical which was performed within 30 days of this procedure has been reviewed and the clinically appropriate elements of the physical examination have been repeated. There are no changes to the documented history and physical or if so such changes are documented below Jaspal Roa MD 09/03/2021 12:59 Source Note - Bri Murphy PA-C - 08/14/2021 13:00 EDT Preoperative H&P Chief Complaint: Pre-op Exam [...] steroid injection 03/24/2021: LTFESI L5 left at [facility] ??? Migraine with aura and without status migrainosus, not intractable 08/21/2020 ??? Lumbosacral radiculopathy at L5 08/08/2021 Added automatically from request for surgery [id number] ??? Obsessive-compulsive disorder 09/08/2012 ??? Constipation by [...] intrathoracic) 2. History of CAD (history of DE or a positive ETT, current ischemic chest [...] prepared with speech recognition software or keyboard data modeler techniques. Minor irregularities or keyboarding misprints may [...] Prevention of Infective Endocarditis Guidelines From the [place] [employer]: A Guideline From the [place] [employer] Rheumatic Fever, Endocarditis, and Kawasaki Disease Committee, [place] on Cardiovascular Disease in the [place], and the [place] on Clinical Cardiology, [place] on Cardiovascular Surgery and Anesthesia, and the Quality of Care and Outcomes Research Interdisciplinary Working Group. Please see Circulation. 2007;116:2252-9677 for the detailed indications. Joan-operative betablocker (BB) [...] for noncardiac surgery. A report of the [place] [employer] Foundation/[place] [employer] Association Task Force on Practice Guidelines. Please see J Am Marlys Cardiol. 2009; Feb 05;54(22):v57-g545 for the detailed indications. documented in this encounter Nursing Notes * Shyanne Vieira RN - 09/03/2021 1152 EDT Preop Covid DOS screening questionnaire Please document by exception (only check those that apply). Have you had any of the following symptoms recently? no Yes Chronic ? Cough Shortness of breath or difficulty breathing Fever Chills Fatigue Muscle or body aches Severe Headache New loss of taste or smell Sore throat Congestion or runny nose Rash Nausea, vomiting, or diarrhea (rare in adults. More common in children) Have you had any exposure to a COVID + person since your covid test (in the last 5 days)? no Have you tested positive in the last 90 days for COVID by PCR and or home test?no Were you covid tested? yes When: 08/31/21 Results: neg Vaccinated: YES See admission vital signs documentation for admission temperature. documented in this encounter OR Notes * OR Surgeon - Walker Pride MD - 09/03/2021 1055 EDT OPERATIVE REPORT SERVICE DATE: 09/03/2021 PREOPERATIVE DIAGNOSIS: POSTOPERATIVE DIAGNOSIS: SURGEON: Walker Pride MD DANDY TENDER: ANESTHESIA: INDICATIONS: Ms Toribio is a 31-year-old woman with severe left leg pain since January. Imaging consistent with large left L4-L5 disk herniation in the setting of degenerative lateral recess stenosis. The risks and benefits of lumbar microdiskectomy were discussed at length including, but not limited to bleeding, infection, stroke, coma, , blindness, failure to improve, worsening of symptoms, weakness, numbness, pain, reoperation, reherniation, delayed spinal instability. Ms Toribio understood these risks and wished to proceed with surgery. NARRATIVE: She was taken to the operating room electively on 09/03/2021, placed prone on a Eddie frame, all pressure points padded, WHO checklist followed prior to skin incision, antibiotics given prior to skin incision. Localizing film was taken, skin incision planned, skin incision made using a scalpel in a subperiosteal fashion on the left side. Spinous process and lamina of L4 and L5 exposed. Ankit placed in the L4 lamina. X-ray taken and confirmed by radiology. High-speed bur then used to skeletonize ligamentum flavum. Ligamentum flavum detached from the superior aspect of L5 and from the lateral recess. The medial aspect of the L5 pedicle palpated with a Bonnyman dental. A 3 mm Kerrison rongeur was used to resect the base of the superior articular process flush to the medial aspectof the L5 pedicle. Nerve root readily identified. At this point, retracted medially. A large disk herniation noted. This was incised. Secondary to her age and the toughness of the disk, no single large fragment was removed, rather multiple small fragments. The disk space was entered with a pituitary rongeur and significant attempt made to remove further disk. However, the annulus was slack. No further compression noted of the nerve root. The lateral recess as well was completely decompressed from a bony standpoint. The nerve root was visible coursing over the disk space and in the lateral recess free of compression. The wound was copiously irrigated. Hemostasis was excellent. Fascia closed using interrupted 0 Vicryl, Pita fascia closed using inverted interrupted 2-0 Vicryls, dermis closed using inverted interrupted 3-0 Vicryls and Dermabond. I was personally present for the entire procedure. Unless otherwise noted, there were no complications, no blood loss, no cultures obtained, no specimens removed, and no drains retained. Walker Pride MD / AM Confirmation: [id number] Dictation ID: [id number] cc: documented in this encounter Miscellaneous Notes * Brief Op Note - Jaspal Roa MD - 09/03/2021 1541 EDT BRIEF OP NOTE PRE-OP DIAGNOSIS = Left L45 disc herniation, Left L5 radiculopathy POST-OP DIAGNOSIS = same as above PROCEDURE = Left L45 lateral recess decompression, microdiscectomy SURGEON = Walker Pride MD DANDY TENDER = Jaspal Rao MD ANESTHESIA = GETA COMPLICATIONS = None FINDINGS = Root well decompressed at end of case EBL = 10 cc IVF = See anesthesia record UOP = No higgins SPECIMENS/CULTURES = None DRAINS = None SKIN = glue DISPO = PACU then home [id number] prior to being discharged to be seen by neurosurgery resident Jaspal Roa MD Neurosurgery resident 09/03/2021 15:44 Page [phone] with questions documented in this encounter Plan of Treatment Upcoming Encounters Date Type Department Care Team (Late st Contact Info) Description 10/22/2023 13:25 EDT Hospital Encounter [facility] OR [address] [place] [address] Walker Pride MD [address] [place] [address], [address] [place] [phone] 10/22/2023 13:25 EDT - 10/22/2023 17:00 EDT Surgery [facility] OR [address] [place] [phone] Walker Pride MD [address] [place] [address], [address] [place] [phone] Left L34 decompression, redo left L45 decompression [74235 (CPT??)] 11/22/2023 10:00 EDT Post-op Visit [facility] - [address] [phone] Madiha Hurtado NP [address] [place] [address], [address] [place] [phone] Scheduled Procedures Name Priority Associated Diagnoses Date/Ti me LAMINECTOMY, SPINE, LUMBAR, 1 LEVEL, WITH FORAMINOTOMY OR FACETECTOMY Lumbar radiculopathy 10/22/2023 13:25 EDT LAMINECTOMY, SPINE, WITH FACETECTOMY AND FORAMINOTOMY, ADDITIONAL LEVEL FOLLOWING INITIAL LEVEL Lumbar radiculopathy 10/22/2023 13:25 EDT documented as of this encounter Procedures Procedure Name Priority Date/Time Associated Diagnosis Comments XR LUMBAR SPINE 1 VIEW STAT 09/03/2021 14:25 EDT XR LUMBAR SPINE 1 VIEW STAT 09/03/2021 13:56 EDT LAMINOTOMY, SPINE, LUMBAR, WITH 1 OR MORE OF PARTIAL FACETECTOMY, FORAMINOTOMY, OR HERNIATED DISCECTOMY IF INDICATED 09/03/2021 13:17 EDT Lumbosacral radiculopathy at L5 Special Needs Anspach TEST, URINE STAT 09/03/2021 11:47 EDT documented in this encounter Results * XR LUMBAR SPINE 1 VIEW (09/03/2021 14:25 EDT) Anatomical Region Laterality Modality Spine Computed Radiogr aphy 09/03/2021 14:5 3 EDT Narrative 09/03/2021 14:53 EDT XR LUMBAR SPINE 1 VIEW ??09/03/2021 2:15 PM Signs And Symptoms/Comments: ?? Disc displ L4-5 discectomy check level 19018 Done in ORexam #2 Comparison: ?? Lumbar spine radiographs 07/30/2021 Findings: Single intraoperative lateral view of the lumbar spine was obtained for the purpose of level check. A clamp projects over the L4 lamina. The findings were called to Dr. PRIDE shortly after completion of the study who agreed with the finding. I have personally reviewed the images and the above interpretation and agree with the findings. Procedure Note Koby Muller MD - 09/03/2021 XR LUMBAR SPINE 1 VIEW 09/03/2021 2:15 PM Signs And Symptoms/Comments: Disc displ L4-5 discectomy check level [id number] Done in ORexam #2 Comparison: Lumbar spine radiographs 07/30/2021 Findings: Single intraoperative lateral view of the lumbar spine was obtained forthe purpose of level check. A clamp projects over the L4 lamina. The findings were called to Dr. PRIDE shortly after completion of thestudy who agreed with the finding. I have personally reviewed the images and the above interpretation andagree with the findings. Walker Pride MD IMG DIAGNOSTIC IM AGING ORDERABLES * XR LUMBAR SPINE 1 VIEW (09/03/2021 13:56 EDT) Anatomical Region Laterality Modality Spine Computed Radiogr aphy 09/03/2021 15:3 6 EDT Impressions 09/03/2021 15:36 EDT FINDINGS/IMPRESSION: Single intraoperative lateral view of the lumbar spine was obtained. Surgical needle overlies the L4 spinous process and is roughly at the level the L4-5 vertebral disc space.. The findings were called to SUSAN shortly after completion of the study who agreed with the finding. I have personally reviewed the images and the above interpretation and agree with the findings. Narrative 09/03/2021 15:36 EDT XR LUMBAR SPINE 1 VIEW ??09/03/2021 2:00 PM SIGNS AND SYMPTOMS: ?? Disc displ L4-5 discectomy check level [id number] Done in OR COMPARISON: MR lumbar spine 07/29/2021 Procedure Note Koby Muller MD - 09/03/2021 XR LUMBAR SPINE 1 VIEW 09/03/2021 2:00 PM SIGNS AND SYMPTOMS: Disc displ L4-5 discectomy check level [id number] Done in OR COMPARISON: MR lumbar spine 07/29/2021 IMPRESSION FINDINGS/IMPRESSION: Single intraoperative lateral view of the lumbar spine was obtained.Surgical needle overlies the L4 spinous process and is roughly at thelevel the L4-5 vertebral disc space.. The findings were called to SUSAN shortly after completion of the studywho agreed with the finding. I have personally reviewed the images and the above interpretation andagree with the findings. Walker Pride MD IMG DIAGNOSTIC IM AGING ORDERABLES * TEST, URINE (09/03/2021 11:47 EDT) Test, Urine Negative Negative 09/03/2021 11:58 EDT [facility] Comment:False negative resul ts may occur in women who are beyond 5-8 weeks gestation. Diagnosis of should be based on a correlation of test results with typical clinical signs and symptoms. Urine URINE / Unknown Urine Collect / Unknown 09/03/2021 11:47 EDT 09/03/2021 11:50 EDT Leonie Hawk MD URINALYSIS ORDER JORDI [facility] [address] [place] [address] documented in this encounter Visit Diagnoses Diagnosis Lumbosacral radiculopathy at L5- Primary Thoracic or lumbosacral neuritis or radiculitis, unspecified Lumbar radiculopathy Thoracic or lumbosacral neuritis or radiculitis, unspecified documented in this encounter Admitting Diagnoses Diagnosis Lumbosacral radiculopathy at L5 Thoracic or lumbosacral neuritis or radiculitis, unspecified documented in this encounter Administered Medications Inactive Administered Medications - up to 3 most recent administrations Medication Order MAR Action Action Date Dose Rate Site acetaminophen (TYLENOL) tablet 1,000 mg 1,000 mg, oral, PRN, 1 dose, Starting on Wed09/03/21 at 1512, Until Wed09/03/21 at 1622, Pain, Routine, Recovery (only) Given 09/03/2021 16:22 EDT 1,000 mg atropine 0.1 mg/mL syringe 0.5 mg 0.5 mg, intravenous, PRN, Starting on Wed09/03/21 at 1512, Until Wed09/03/21 at 2000, Symptomatic HR < 50, Routine, Recovery (only) diphenhydrAMINE (BENADRYL) injection 12.5 mg 12.5 mg, intravenous, PRN, 1 dose, Starting on Wed09/03/21 at 1512, Until Wed09/03/21 at 2000, nausea, Routine, Recovery (only) fentaNYL citrate (PF) injection 25-50 mcg 25-50 mcg, intravenous, EVERY 5 MIN PRN, Starting on Wed09/03/21 at 1512, Until Wed09/03/21 at 2000, Pain, Routine, Recovery (only) Given 09/03/2021 16:22 EDT 25 mcg Given 09/03/2021 15:59 EDT 25 mcg HYDROmorphone (DILAUDID) tablet 2-4 mg 2-4 mg, oral, EVERY 30 MINUTES PRN, 2 doses, Starting on Wed09/03/21 at 1512, Until Wed09/03/21 at 2000, Pain, Routine, Recovery (only) Given 09/03/2021 15:57 EDT 4 mg HYDROmorphone (PF) (DILAUDID) 0.5 mg/0.5 mL syringe 0.3-0.5 mg 0.3-0.5 mg, intravenous, EVERY 10 MINUTES PRN, Starting on Wed09/03/21 at 1512, Until Wed09/03/21 at 2000, Pain, Routine, Recovery (only) Given 09/03/2021 16:22 EDT 0.3 mg ibuprofen (MOTRIN) tablet 400 mg 400 mg, oral, PRN, 1 dose, Starting on Wed09/03/21 at 1512, Until Wed09/03/21 at 2000, Pain, Routine, Recovery (only) lactated ringers (LR) infusion 30 mL/hr, intravenous, CONTINUOUS, Starting on Wed09/03/21 at 1200, Until Wed09/03/21 at 2000, Routine, Preprocedure Restarted 09/03/2021 13:27 EDT Continued by Anesthesia 09/03/2021 13:26 EDT 30 mL/hr New Bag 09/03/2021 12:02 EDT 30 mL/hr 30 mL/hr lactated ringers (LR) infusion at 75 mL/hr, intravenous, PACU CONTINUOUS, Starting on Wed09/03/21 at 1530, Until Wed09/03/21 at 2000, Routine, Recovery (only) naloxone (NARCAN) injection 0.2 mg 0.2 mg, intravenous, PRN, Starting on Wed09/03/21 at 1512, Until Wed09/03/21 at 2000, Opioid Reversal, Routine, Recovery (only) ondansetron (PF) (ZOFRAN) injection 4 mg 4 mg, intravenous, PRN, 1 dose, Starting on Wed09/03/21 at 1512, Until Wed09/03/21 at 2000, Nausea, Vomiting, Routine, Recovery (only) documented in this encounter Active and Recently Administered Medications Times are shown in EDT. Scheduled Medication Order 09/01/2021 09/02/2021 09/03/2021 ceFAZolin (ANCEF) syringe 2 g (COMPLETED) 2 g, intravenous, Administer over 5 Minutes, PRE-OP ONCE, 1 dose, On Wed09/03/21 at 1200, Routine, Preprocedure 1342 (Given - Provid er: Suhail Rivera CRNA) Continuous Medication Order 09/01/2021 09/02/2021 09/03/2021 lactated ringers (LR) infusion 30 mL/hr, intravenous, CONTINUOUS, Starting on Wed09/03/21 at 1200, Until Wed09/03/21 at 2000, Routine, Preprocedure 1202 (New Bag - Prov ider: Shyanne Vieira RN)1326 (Continued by Anesthesia - Provider: Suhail Rivera CRNA)1326 (Paused - Provider: Suhail Rivera CRNA - Comment: Switch to gravity)1327 (Restarted - Provider: Suhail Rivera CRNA) lactated ringers (LR) infusion at 75 mL/hr, intravenous, PACU CONTINUOUS, Starting on Wed09/03/21 at 1530, Until Wed09/03/21 at 2000, Routine, Recovery (only) 1530 (Canceled Entry - Provider: Batch Job User Admin - Comment: Automatically canceled at discontinue of medication order) PRN Medication Order 09/01/2021 09/02/2021 09/03/2021 acetaminophen (TYLENOL) tablet 1,000 mg (COMPLETED)(Linked Group 1) 1,000 mg, oral, PRN, 1 dose, Starting on Wed09/03/21 at 1512, Until Wed09/03/21 at 1622, Pain, Routine, Recovery (only) 1622 (Given - Provid er: Beverly Paulino RN) atropine 0.1 mg/mL syringe 0.5 mg 0.5 mg, intravenous, PRN, Starting on Wed09/03/21 at 1512, Until Wed09/03/21 at 2000, Symptomatic HR < 50, Routine, Recovery (only) bupivacaine-EPINEPHrine (PF) 0.25 %-1:200,000 injection (CANCELED) PRN, Starting on Wed09/03/21 at 1413, Until Wed09/03/21 at 1533, Routine, Intraprocedure 1413 (Given - Provid er: Jaspal Roa MD - Comment: injected at surgical incision site) diphenhydrAMINE (BENADRYL) injection 12.5 mg 12.5 mg, intravenous, PRN, 1 dose, Starting on Wed09/03/21 at 1512, Until Wed09/03/21 at 2000, nausea, Routine, Recovery (only) fentaNYL citrate (PF) injection 25-50 mcg 25-50 mcg, intravenous, EVERY 5 MIN PRN, Starting on Wed09/03/21 at 1512, Until Wed09/03/21 at 2000, Pain, Routine, Recovery (only) 1559 (Given - Provid er: Madiha Hurtado RN)1622 (Given - Provider: Beverly Paulino RN) gelatin absorbable powder (SURGIFOAM) (CANCELED) PRN, Starting on Wed09/03/21 at 1413, Until Wed09/03/21 at 1533, Intraprocedure 1413 (Given - Provid er: Walker Pride MD - Comment: mixed with thrombin for topical use) HYDROmorphone (DILAUDID) tablet 2-4 mg 2-4 mg, oral, EVERY 30 MINUTES PRN, 2 doses, Starting on Wed09/03/21 at 1512, Until Wed09/03/21 at 2000, Pain, Routine, Recovery (only) 1557 (Given - Provid er: Madiha Hurtado RN) HYDROmorphone (PF) (DILAUDID) 0.5 mg/0.5 mL syringe 0.3-0.5 mg 0.3-0.5 mg, intravenous, EVERY 10 MINUTES PRN, Starting on Wed09/03/21 at 1512, Until Wed09/03/21 at 2000, Pain, Routine, Recovery (only) 1622 (Given - Provid er: Beverly Paulino RN) ibuprofen (MOTRIN) tablet 400 mg 400 mg, oral, PRN, 1 dose, Starting on Wed09/03/21 at 1512, Until Wed09/03/21 at 2000, Pain, Routine, Recovery (only) naloxone (NARCAN) injection 0.2 mg 0.2 mg, intravenous, PRN, Starting on Wed09/03/21 at 1512, Until Wed09/03/21 at 2000, Opioid Reversal, Routine, Recovery (only) ondansetron (PF) (ZOFRAN) injection 4 mg 4 mg, intravenous, PRN, 1 dose, Starting on Wed09/03/21 at 1512, Until Wed09/03/21 at 2000, Nausea, Vomiting, Routine, Recovery (only) thrombin (bovine) 5,000 unit topical solution (CANCELED) PRN, Starting on Wed09/03/21 at 1413, Until Wed09/03/21 at 1533, Intraprocedure 1413 (Given - Provid er: Walker Pride MD - Comment: mixed with Surgifoam for topical use) Linked Groups Order Group 1: acetaminophen (TYLENOL) solution unit dose cup 995 mg (COMPLETED) 995 mg (rounded from 1,000 mg), oral, PRN, 1 dose, Starting on Wed09/03/21 at 1512, Until Wed09/03/21 at 1622, Pain, Routine, Recovery (only) Or acetaminophen (TYLENOL) tablet 1,000 mg (COMPLETED)Jump to med 1,000 mg, oral, PRN, 1 dose, Starting on Wed09/03/21 at 1512, Until Wed09/03/21 at 1622, Pain, Routine, Recovery (only) documented in this encounter Orders Medications Ordered That Sameer ht Not Have Been Administered Count Last Ordered Date First Ordered Date acetaminophen (TYLENOL) solu tion unit dose cup 995 mg 1 09/03/2021 atropine 0.1 mg/mL syringe 0.5 mg 1 022 bupivacaine-EPINEPHrine (PF) 0.25 %-1:200,000 injection 1 09/03/2021 ceFAZolin (ANCEF) syringe 2 g 1 09/03/2021 diphenhydrAMINE (BENADRYL) i njection 12.5 mg 1 09/03/2021 gelatin absorbable powder (SURGIFOAM) 1 ibuprofen (MOTRIN) tablet 400 mg 1 09/04/19 lactated ringers (LR) infusion 1 09/03/2021 lidocaine (PF) 10 mg/mL (1 % ) injection 2 mg 1 09/03/2021 naloxone (NARCAN) injection 0.2 mg 1 2021 ondansetron (PF) (ZOFRAN) injection 4 mg 1 09/03/2021 thrombin (bovine) 5,000 unit topical solution 1 09/03/2021 Nursing Count Last Ordered Date First Orde red Date ACTIVITY INSTRUCTIONS 1 09/03/2021 BATHING INSTRUCTIONS 1 09/03/2021 LIFTING INSTRUCTIONS 09/03/2021 PLACE ANTI-EMBOLISM STOCKINGS 09/03/2021 PLACE SEQUENTIAL COMPRESSION DEVICE 1 09/03 WOUND CARE INSTRUCTIONS 1 09/03/2021 Discharge Count Last Ordered Date First Orde red Date DISCHARGE PATIENT 1 09/03/2021 Legal Count Last Ordered Date First Orde red Date MISCELLANEOUS DISCHARGE INSTRUCTIONS 08/14 documented in this encounter Care Teams Area Coordinator Relationship Specialty Start Date End Date Bri Murphy PA-C [id number] [place] [phone] PCP - General Internal Medicine - Primary Care 10/16/19 09/15/21 documented as of this encounter
--- OUTSIDE RECORDS SUMMARY | 2023-10-19 15:34 | XMS_ITS | Encounter Summary ---
Author Organization [facility] Address [address] [place] [address] Care Team Providers Care Spray Ii Painter Name Role Phone Galilea Mars NP Primary Care Provider [phone] Reason for Visit * Reason Comments Post-OP Follow Up POV L45 [facility] 09/03 Encounter Details Date Type Department Care Team (Late st Contact Info) Description 10/01/2021 10:00 EDT Post-op Visit [facility] Neurosurgery - [facility] [address], [place] [phone] Madiha Hurtado NP [address] [facility], [address] [place] [address] Lumbar radiculopathy, chronic (Primary Dx) Social History Tobacco Use Types [...] money to buy more. Never true 10/01/19 Within the past 12 months, t he [...] slept in a fdc (including now)? No 09/30/2021 Interpersonal Safety Answer Date Record ed How often does anyone, inclnadia sanchez family, hit, punch or physically hurt you? Never 09/30/2021 How often does anyone, inclnadia sanchez family, insult, scream, curse or threaten to hurt you? Never 09/30/2021 Education Answer Date Recorded What is the highest level of school you have completed or the highest degree you have received? Master's degree (e.g., MA, MS, Joanne, MEd, LABORER CHEESEMAKING, LILA) 06/19/2020 Sex and Gender Information Value Date Recorded Sex Assigned at Female 10/08/2022 13:26 EDT Gender Identity Female 07/29/2021 16:35 EDT Sexual Orientation Straight 10/08/2022 13 :26 EDT documented as of this encounter Last Filed Vital Signs Vital Sign Reading Time Taken Comments Blood Pressure 104/60 10/01/2021 1010 EDT Pulse 69 10/01/2021 1010 EDT Temperature - - Respiratory Rate - - Oxygen Saturation 98% 10/01/2021 1010 EDT Inhaled Oxygen Concentration - - Weight 69.9 kg (154 lb) 10/01/2021 1010 EDT Height 163.8 cm (5' 4.5) 10/01/2021 1010 EDT Body Mass Index 26.03 10/01/2021 1010 EDT documented in this encounter Progress Notes * Madiha Hurtado NP - 10/01/2021 1000 EDT Chief Complaint Patient presents with ??? Post-OP Follow Up POV L45 [facility] 09/03 HPI: Teri Toribio is a 31 y.o. female who presents today for f/u after surgery. She is s/p left L4-5 lateral recess decompression and microdiscectomy for left L5 radiculopathy with Dr. Pride on 09/03/21. She reports complete resolution of her left leg pain. She has a small area of numbness in the left leg that is also improving. She reports only minor incisional pain, no issues with healing. She has been walking and tolerating this well. She is eager to return to swimming. ROS: - Constitutional: Denies fever, chills, unintentional weight loss, unusual fatigue - GI: Denies bowel incontinence - : Denies urinary incontinence - MSK: Denies difficulty with gait, balance, coordination - Neuro: Denies saddle anesthesia - Past Medical History: Diagnosis Date ??? Activity, [...] Maternal Grandmother ??? Tuberculosis Maternal Grandfather Social history: - ETOH: Denies - Tobacco/vaping: Denies - Drugs: Denies EXAM: Patient Vitals for the past 24 hrs: BP Pulse SpO2 Height Weight 10/01/21 1010 104/60 69 98 % 163.8 cm (64.5) 69.9 kg (154 lb) Awake, alert, conversant Oriented x4 Follows commands x4 Verbalizes appropriately, fluently Rises from a seated position without difficulty. Skin: Incision appears to be healing well. No noted erythema, edema, drainage Assessment/Plan Lumbar radiculopathy - Resolved s/p left L4-5 lateral recess decompression and microdiscectomy withDr. Pride on 09/03/21. We discussed the increased chance of disc herniation in the first 3m after surgery and activity restrictions that Teri should continue to abide by including no heavy lifting, repetitive movements. Okay to start gentle swimming, increase activity as tolerated. Should Teri develop a recurrence of her radicular pain she was directed to contact clinic. We will not schedule additional follow up. Encouraged to call with any questions or concerns. RTC/FU PRN 15 minutes of this 20 minute face to face visit were spent in patient counseling/coordination of care. documented in this encounter Plan of Treatment Upcoming Encounters Date Type Department Care Team (Late st Contact Info) Description 10/22/2023 13:25 EDT Hospital Encounter [facility] OR [address] [place] [address] [phone] Walker Pride MD [address] [place] [address] [phone] 10/22/2023 13:25 EDT - 10/22/2023 17:00 EDT Surgery [facility] OR [address] [place] [address] [phone] Walker Pride MD [address] [place] [address] [phone] Left L34 decompression, redo left L45 decompression [71061 (CPT??)] 11/22/2023 10:00 EDT Post-op Visit [facility] Neurosurgery - [address] [phone] Madiha Hurtado NP [address] [place] [address] [phone] Scheduled Procedures Name Priority Associated Diagnoses Date/Ti me LAMINECTOMY, SPINE, LUMBAR, 1 LEVEL, WITH FORAMINOTOMY OR FACETECTOMY Lumbar radiculopathy 10/22/2023 13:25 EDT LAMINECTOMY, SPINE, WITH FACETECTOMY AND FORAMINOTOMY, ADDITIONAL LEVEL FOLLOWING INITIAL LEVEL Lumbar radiculopathy 10/22/2023 13:25 EDT documented as of this encounter Visit Diagnoses Diagnosis Lumbar radiculopathy, chronic- Primary Thoracic or lumbosacral neuritis or radiculitis, unspecified Lumbar radiculopathy Thoracic or lumbosacral neuritis or radiculitis, unspecified documented in this encounter Care Teams Spray Ii Painter Relationship Specialty Start Date End Date Galilea Mars, STONEWORKING SANDER [address] [place] [phone] PCP - General 09/16/21 documented as of this encounter
--- OUTSIDE RECORDS SUMMARY | 2023-10-19 15:34 | XMS_ITS | Encounter Summary ---
Author Organization [facility] Address [address] [place] [address] Care Team Providers Care Brainer Name Role Phone Bri Murphy PA-C Primary Care Provider [phone] Reason for Visit * Reason Comments New Patient Visit Lumbar radiculopathy * Consult (Routine) - Authorization Not Required Specialty Diagnoses / Procedures Referred By Contac t Referred To Contact Neurosurgery Diagnoses Radiculopathy, lumbosacral region Radiculopathy, lumbar region Livier Alvarado MD [address] [place] [address] [place] [phone] Walker Pride MD [address] [place] [phone] Referral ID Status Reason Start Date Expiration Date Visits Requested Visits Authorized [id number] Authorization Not Required 1 1 Encounter Details Date Type Department Care Team (Late st Contact Info) Description 08/08/2021 9:10 EDT Office Visit [facility] Neurosurgery - [address] [address] Walker Pride MD [address] [place] [phone] Lumbosacral radiculopathy at L5 (Primary Dx) Social History Tobacco Use Types [...] place to sleep or slept in a fpc (including now)? No 06/19/2020 Interpersonal Safety Answer Date Record ed Physically Hurt Never 10/27/2019 Verbally Threaten Never 10/27/2019 Education Answer Date Recorded What is the highest level of school you have completed or the highest degree you have received? Master's degree (e.g., MA, MS, Joanne, MEd, OFFICE ASSOCIATE, LILA) 06/19/2020 Sex and Gender Information [...] Sign Reading Time Taken Comments Blood Pressure 120/66 08/08/2021 0910 EDT Pulse 89 08/08/2021 0910 EDT Temperature - - Respiratory Rate 16 08/08/2021 0910 EDT Oxygen Saturation 99% 08/08/2021 0910 EDT Inhaled Oxygen Concentration - - Weight 63.5 kg (140 lb) 08/08/2021 0910 EDT Height 162.6 cm (5' 4) 08/08/2021 0910 EDT Body Mass Index 24.03 08/08/2021 0910 EDT documented in this encounter Patient Instructions * Patient Instructions* Destinee Tomlin RN - 08/08/2021 9:10 EDT POST- OPERATIVE INSTRUCTIONS FOLLOWING LUMBAR SURGERY 1. Avoid sitting or standing for more than 30 minutes without changing position. If you were prescribed a lumbar brace it should be worn whenever you are out of bed. Please wear a light cotton t-shirt between the brace and your skin. Do not wear the brace tightly. Please call if the brace is uncomfortable or does not fit properly. You do not need to apply the brace to use the restroom during the night. 2. You may walk as much as tolerated, but please begin with short distances on level ground. Gradually increase your walking distance daily. If you experience increased discomfort late evening or thenext morning decrease your activity for a few more days. You may use a treadmill without incline. Please hold handrails when climbing stairs. 3. Avoid lifting more than 10 pounds which is the weight of a gallon of milk. Do not bend at the waist to lift and avoid twisting. Keep your back straight and bend your knees while lifting. Avoid yard work, vacuuming, sweeping, loading or lifting laundry. 4. It is important to wash your wound daily. You may shower the day after surgery. Incisions closedwith ngozi or sutures will remain covered with a dressing which may be removed on the third day following surgery. You may shower when the dressing is off. Do not soak in a bath or hot tub, or swimuntil evaluated at your first post-op appointment. Do not apply any creams, lotions, or antibiotic ointment to your incision. 5. You may resume sexual activity when you are comfortable with it. Please limit any stress on yourback. 6. Drink plenty of fluids while taking pain medications to avoid constipation. You may need to takea stool softener such as Colace 100 mg twice daily. Lumbar fusion patients should avoid medicationsthat reduce inflammation such as Aleve, Motrin, Mobic and Celebrex for 90 days post procedure. 7. It is important to ice your back for the first three days to help with the swelling that occurs from surgery. Please apply ice packs to the area for 15-20 minutes every 4-6 hours while awake. You may alternate ice and heat thereafter. 8. Please call our office if your wound is closed with sutures or ngozi to arrange for removal; 10-14 days is typical. 9. Do not drive for at least two weeks. After the two weeks do not drive if you are taking prescription pain medication or a muscle relaxer. Do not drive if you have any numbness or weakness. Please avoid long car rides for the first three weeks following surgery. If you must travel a long distanceto return home please plan to stop frequently to stretch. 10. Please call our Nurse at [phone] if you experience severe pain, fever, wound drainage, increased numbness, there is always a Physician available to you after hours and on weekends. You may reach a Physician after hours by calling [phone]. Please call to schedule a follow-up three to four weeks following surgery. documented in this encounter Progress Notes * Walker Pride MD - 08/08/2021 0910 EDT .This office note has been dictated. * Destinee Tomlin RN - 08/08/2021 0910 EDT Patient Education Topic: lumbar GERARDO Method: Verbal, Written Taught to: Family and Patient Barriers: None Outcomes: independent PREPARING FOR SURGERY, A patient's guide was reviewed with the patient. Smoking cessation guidelines per patient guide unless otherwise documented by Physician. The patient was encouraged to reviewall instructions at home. Medications reviewed and reconciled Advised patient to DC all NSAIDS, vitamins and herbal supplements 7 days prior to procedure. Aspirin/Antiplatelet therapy- denied. Patient instructed to stop all OTC aspirin 7 days prior to surgery. Immunosuppressive therapy- none Insulin/oral hypoglycemic agents- none KAL inhibitor/ARB therapy- none Post-Op instructions reviewed. Collar/braces: no Advanced directive information provided. Pain Consult: no MRSA/MSSA protocol: N/A AGREEMENT FOR POST-OPERATIVE NON-INVASIVE VENTILATION- N/A Signature: René MELENDEZ Patient given pre-op packet- contents reviewed. Patient is aware that the hospital will contact them for Covid testing and that they will need to self isolate after said testing until surgery. Discussed with patient pre and post-op instructions. Patient verbalized understanding and denied any questions. Patient encouraged to contact the office with any questions/concerns. * Walker Pride MD - 08/08/2021 0907 EDT [facility] NEUROLOGICAL SURGERY NEW PATIENT EVALUATION - 08/08/2021 SUBJECTIVE: Ms Toribio is seen in consultation at the request of Livier Caro regarding left leg pain. CHIEF COMPLAINT: Left leg pain. 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 She was imaged in January, referred to [facility]. She has had worsening in her symptoms since that point. She describes these on theleft in a classic L5 distribution. She states when she is tired, she feels her foot slap. She denies right leg symptoms. She denies bowel or bladder symptoms. She has had 2 injections, which were nothelpful. PAST MEDICAL HISTORY: Migraine, constipation, obsessive compulsive disorder. PAST SURGICAL HISTORY: None. MEDICATIONS: Baclofen, Neurontin, Mirena, Zoloft and vitamins. ALLERGIES: None. 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 She is from [place], [place]. She is off from school for the summer. PHYSICAL EXAMINATION: Deep tendon reflexes 1+ and symmetric at knee and ankle. 4+/5 left tibia ant,otherwise 5/5. Antalgic gait, using crutches. REVIEW OF IMAGING: There is a left L4-5 disk herniation in the setting of global mild stenosis and lateral recess stenosis. There is no translational instability on flexion/extension. There is an antalgic scoliosis. ASSESSMENT: Ms Toribio is a 31-year-old woman with many months of left L5 radiculopathy who continues to be significantly disabled by her pain. She has not responded to epidural steroid injections. Today, we have discussed surgery versus continued nonoperative management. She wishes to pursue surgery at this point, and I think this is reasonable. We have discussed the risks and benefits of a left-sided L4-5 microdiskectomy including but not limited to bleeding, infection, stroke, coma, , blindness, failure to improve, worsening of symptoms, weakness, numbness, pain, reoperation, reherniation, spinal fluid leak. Ms Toribio understands these risks and wished to proceed with surgery. Thiswill be scheduled over the coming weeks at her convenience. Walker Pride MD / CD Dictation ID: [id number] cc: documented in this encounter Plan of Treatment Upcoming Encounters Date Type Department Care Team (Late st Contact Info) Description 10/22/2023 13:25 EDT Hospital Encounter [facility] OR [address] [place] [address] [id number] Walker Pride MD [address] [place] [address] [phone] 10/22/2023 13:25 EDT - 10/22/2023 17:00 EDT Surgery [facility] OR [address] [place] [address] [phone] Walker Pride MD [address] [place] [address] [phone] Left L34 decompression, redo left L45 decompression [[id number] (CPT??)] 11/22/2023 10:00 EDT Post-op Visit [facility] Neurosurgery - [address] [phone] Madiha Hurtado NP [address] [place] [address] [phone] Scheduled Procedures Name Priority Associated Diagnoses Date/Ti me LAMINECTOMY, SPINE, LUMBAR, 1 LEVEL, WITH FORAMINOTOMY OR FACETECTOMY Lumbar radiculopathy 10/22/2023 13:25 EDT LAMINECTOMY, SPINE, WITH FACETECTOMY AND FORAMINOTOMY, ADDITIONAL LEVEL FOLLOWING INITIAL LEVEL Lumbar radiculopathy 10/22/2023 13:25 EDT documented as of this encounter Visit Diagnoses Diagnosis Lumbosacral radiculopathy at L5- Primary Thoracic or lumbosacral neuritis or radiculitis, unspecified Lumbar radiculopathy Thoracic or lumbosacral neuritis or radiculitis, unspecified documented in this encounter Discontinued Medications Medication Sig Discontinue Reason Start Date End Da te rimegepant 75 mg tablet,disintegratingIn dications:Migraine with aura and without status migrainosus, not intractable Take 1 Tab by mouth daily as needed (headache). Patient Stopped Taking 08/21/2020 08/08/2021 documented as of this encounter Orders Case Request Count Last Ordered Date First Orde red Date CASE REQUEST OPERATING ROOM 1 08/08/2021 documented in this encounter Care Teams Brainer Relationship Specialty Start Date End Date Bri Murphy PA-C [address] [place] [phone] PCP - General Internal Medicine - Primary Care 10/16/19 09/15/21 documented as of this encounter
--- OUTSIDE RECORDS SUMMARY | 2023-10-19 15:34 | XMS_ITS | Encounter Summary ---
Author Organization [facility] Address [address] [place] [address] Care Team Providers Care Cardiovascular Surgical Tech Name Role Phone Bri Murphy PA-C Primary Care Provider [phone] Encounter Details Date Type Department Care Team (Late st Contact Info) Description 08/15/2021 Orders Only [facility] Neurosurgery - [facility] [address] [place], [place] [phone] Walker Pride MD 111 [facility], [address] [place] [phone] Lumbosacral radiculopathy at L5 (Primary Dx) [...] received? Master's degree (e.g., MA, MS, Joanne, Arias, STONE REPAIRER, LILA) 06/19/2020 Sex and Gender Information Value [...] Info) Description 10/22/2023 13:25 EDT Hospital Encounter [facility] OR [address] [place] [address] [phone] Walker Pride MD [address] [place] [phone] 10/22/2023 13:25 EDT - 10/22/2023 17:00 EDT Surgery [facility] OR [address] [place] [address] [phone] Walker Pride MD [address] [place] [phone] Left L34 decompression, redo left L45 decompression [[id number] (CPT??)] 11/22/2023 10:00 EDT Post-op Visit [facility] Neurosurgery - [address] [address] Madiha Hurtado NP [address] [place] [phone] Scheduled Procedures Name Priority Associated Diagnoses Date/Ti me LAMINECTOMY, SPINE, LUMBAR, 1 LEVEL, WITH FORAMINOTOMY OR FACETECTOMY Lumbar radiculopathy 10/22/2023 13:25 EDT LAMINECTOMY, SPINE, WITH FACETECTOMY AND FORAMINOTOMY, ADDITIONAL LEVEL FOLLOWING INITIAL LEVEL Lumbar radiculopathy 10/22/2023 13:25 EDT documented as of this encounter Results * PROTIME (08/27/2021 17:12 EDT) Pathologist [facility] I.N.R. 1.0 0.9 - 1.1 Ratio 08/27/2021 18:13 EDT [facility] Pro Time 11.9 10.4 - 12.6 secs 08/27/2021 18:13 EDT [facility] Blood VENOUS BLOOD / Unknown Venipuncture / Unknown 08/27/2021 17:12 EDT 08/27/2021 17:24 EDT Narrative [facility] - 08/27/2021 18:13 EDT Moderate Intensity Coumadin INR = 2.0-3.0 Adjustments in anticoagulant therapy dose should be based on the INR and NOT on the Protime. Madiha Hurtado NP HEMATOLOGY & P F4 ORDERABLES [facility] [address] [place] [address] * BASIC METABOLIC PANEL (BMP) (08/27/2021 17:12 EDT) [facility] Sodium 137 136 - 145 mmol/L 08/27/2021 18:05 EDT [facility] Potassium 4.0 3.5 - 5.0 mmol/L 08/27/2021 18:05 EDT [facility] Chloride 100 96 - 110 mmol/L 08/27/2021 18:05 T [facility] CO2 Total 27 22 - 32 mmol/L 08/27/2021 18:05 T [facility] Anion Gap 10 5 - 14 08/27/2021 18:05 T [facility] Glucose 94 70 - 100 mg/dL 08/27/2021 18:05 [facility] Calcium 10.1 8.5 - 10.5 mg/dL 08/27/2021 18:05 [facility] BUN 10 10 - 26 mg/dL 08/27/2021 18:05 [facility] Creatinine 0.58 0.52 - 1.04 mg/dL 08/27/2021 18:05 [facility] eGFR 123 >60 mL/min/1.73 m2 08/27/2021 18:05 [facility] Blood VENOUS BLOOD / Unknown Venipuncture / Unknown 08/27/2021 17:12 EDT 08/27/2021 17:24 EDT Madiha Hurtado NP CHEMISTRY & BL OOD GAS ORDERABLES Performing Organization Address City/State/[facility] Co de Phone Number [facility] [address] [place] [address] * (ABNORMAL) COMPLETE BLOOD COUNT AND DIFFERENTIAL (08/27/2021 17:12 EDT) WBC 5.35 4.00 - 12.40 K/cmm 08/27/2021 17:55 [facility] RBC 4.24 3.86 - 5.04 M/cmm 08/27/2021 17:55 [facility] Hemoglobin 14.8 11.6 - 15.2 gm/dL 08/27/2021 17:55 [facility] HCT 40.8 34.9 - 44.4 % 08/27/2021 17:55 [facility] MCV 96 81 - 98 fl 08/27/2021 17:55 [facility] MCH 34.9(H) 26.7 - 33.3 pg 08/27/2021 17:55 [facility] MCHC 36.3(H) 32.1 - 35.9 gm/dL 08/27/2021 17:55 [facility] RDW-CV 11.0 <14.7 % 08/27/2021 17:55 [facility] RDW-SD 39.2 <50.4 fl 08/27/2021 17:55 [facility] PLT 246 141 - 377 K/cmm 08/27/2021 17:55 [facility] MPV 9.8 9.5 - 12.7 fl 08/27/2021 17:55 [facility] % Neutrophils 45.1 % 08/27/2021 17:55 [facility] % Lymphocytes 42.4 % 08/27/2021 17:55 [facility] % Monocytes 11.2 % 08/27/2021 17:55 [facility] % Eosinophils 0.7 % 08/27/2021 17:55 [facility] % Basophils 0.4 % 08/27/2021 17:55 [facility] % Immature Grans 0.2 % 08/28/19 17:55 [facility] Absolute Neutrophils 2.41 2.20 - 8.85 K/cmm 08/27/2021 17:55 [facility] Absolute Lymphocytes 2.27 1.09 - 3.30 K/cmm 08/27/2021 17:55 [facility] Absolute Monocytes 0.60 0.10 - 0.80 K/cmm 08/27/2021 17:55 [facility] Absolute Eosinophils 0.04 0.03 - 0.61 K/cmm 08/27/2021 17:55 [facility] ABS Basophils 0.02 0.01 - 0.11 K/cmm 08/27/2021 17:55 [facility] Absolute Immature Grans 0.01 0.00 - 0.06 K/cmm 08/27/2021 17:55 [facility] Type of Differential: Auto 08/27/2021 17:55 [facility] Blood VENOUS BLOOD / Unknown Venipuncture / Unknown 08/27/2021 17:12 EDT 08/27/2021 17:24 EDT Madiha Leanne Hurtado FOREST MANAGEMENT PROFESSOR PACKAGES & DNA PROBE ORDERABLES [facility] [address] [place] [address] documented in this encounter Visit Diagnoses Diagnosis Lumbosacral radiculopathy at L5- Primary Thoracic or lumbosacral neuritis or radiculitis, unspecified Lumbar radiculopathy Thoracic or lumbosacral neuritis or radiculitis, unspecified documented in this encounter Care Teams Cardiovascular Surgical Tech Relationship Specialty Start Date End Date Bri Murphy PA-C [id number] [place] [phone] PCP - General Internal Medicine - Primary Care 10/16/19 09/15/21 documented as of this encounter
--- OUTSIDE RECORDS SUMMARY | 2023-10-19 15:34 | XMS_ITS | Encounter Summary ---
Author Organization [facility] Address [address] [place] [address] Care Team Providers Care Ore Washer Name Role Phone Bri Murphy PA-C Primary Care Provider [phone] Reason for Visit * Reason Onset Date Comments Appointment Related 07/30/2021 New/Evolving Symptoms 07/30/2021 Encounter Details Date Type Department Care Team (Late st Contact Info) Description 07/30/2021 Telephone [facility] Neurosurgery - [facility] [address], [place] [phone] Walker Pride MD [address] [facility], [address] [place] [phone] Appointment Related; New/Evolving Symptoms Social History Tobacco Use Types [...] Master's degree (e.g., MA, MS, Joanne, MEd, [employer] LEAD[employer], [employer]) 06/19/2020 Sex and Gender Information Value Date Recorded Sex Assigned at Female 10/08/2022 13:26 EDT Gender Identity Female 07/29/2021 16:35 EDT Sexual Orientation Straight 10/08/2022 13 :26 EDT COVID-19 Exposure Response Date Recorded In the last 10 days, have yo u been in contact with someone who was confirmed or suspected to have Coronavirus/COVID-19? No / Unsure 07/29/2021 15:24 EDT documented as of this encounter Miscellaneous Notes * Telephone Encounter - Destinee Tomlin RN - 07/30/2021 1251 EDT Discussed with Madiha Hurtado APRN who advised that a sooner appointment is not need. * Telephone Encounter - Jael Knight - 07/30/2021 1023 EDT Pinky called from [facility] regarding Teri's upcoming appointment with Dr. Pride on 08/08. Teri was seen in the ED yesterday for worsening symptoms from her disc herniation. Teri reported to her PCP's office that the ED told her that she should be seen in our office this week, however, upon review of her chart, she was advised by Orthopedics to follow-up with Dr. Zimmerman scheduled next Wednesday. Pinky was advised that we will have Dr. Pride's team review and advise if a sooner appointment is needed. documented in this encounter Plan of Treatment Upcoming Encounters Date Type Department Care Team (Late st Contact Info) Description 10/22/2023 13:25 EDT Hospital Encounter [facility] [place] [address] [place] [phone] Walker Pride MD [address] [place] [address], [address] [place] [phone] 10/22/2023 13:25 EDT - 10/22/2023 17:00 EDT [address] [facility] [place] [address] [place] [address] [phone] Walker Pride MD [address] [place] [address], [address] [place] [phone] Left L34 decompression, redo left L45 decompression [28468 (CPT??)] 11/22/2023 10:00 EDT Post-op Visit [facility] Neurosurgery - [address] [phone] Madiha Hurtado NP [address] [place] [address], [address] [place] [phone] Scheduled Procedures Name Priority Associated Diagnoses Date/Ti me LAMINECTOMY, SPINE, LUMBAR, 1 LEVEL, WITH FORAMINOTOMY OR FACETECTOMY Lumbar radiculopathy 10/22/2023 13:25 EDT LAMINECTOMY, SPINE, WITH FACETECTOMY AND FORAMINOTOMY, ADDITIONAL LEVEL FOLLOWING INITIAL LEVEL Lumbar radiculopathy 10/22/2023 13:25 EDT documented as of this encounter Visit Diagnoses Not on filedocumented in this encounter Care Teams Ore Washer Relationship Specialty Start Date End Date Bri Murphy PA-C [id number] [facility] [address] [place] [phone] PCP - General Internal Medicine - Primary Care 10/16/19 09/15/21 documented as of this encounter
--- OUTSIDE RECORDS SUMMARY | 2023-10-19 15:34 | XMS_ITS | Encounter Summary ---
Author Organization [facility] Address [address] [place] [address] Care Team Providers Care Electromechanic Name Role Phone Bri Murphy PA-C Primary Care Provider [phone] Reason for Visit * Auth/Cert Specialty Diagnoses / Procedures Referred By Liat t Referred To Contact Diagnoses Lumbosacral radiculopathy at L5 Procedures [place] LAMNOTMY INCL W/DCMPRSN NRV ROOT 1 INTRSPC LUMBR Left L45 microdiscectomy Referral ID Status Reason Start Date Expiration Date Visits Re quested Visits Authorized [id number] 1 1 Encounter Details Date Type Department Care Team (Late st Contact Info) Description 09/03/2021 12:55 EDT - 09/03/2021 15:40 EDT Surgery [facility] OR [address] [place] [address] [phone] Walker Pride MD [address] [facility], [address] [place] [phone] Left L45 microdiscectomy [64723 (CPT??)] Surgery Details Date/Time Status Location OR Service Patient Class Case Cl ass Case Type Trauma Case? 09/03/21 1255 Posted [facility] [place] [facility] [place] Outpatient Surgery H - Elective Panel 1 Procedure LRB Anes Op Region Wound Class Comments Left L45 microdiscectomy Left General Spine Lumbar Cl ass I/ Clean Surgeon Surgeon Role Service Panel Walker Pride MD Primary Neurosurgery 1 Jaspal Roa MD Resident - Assisting Neurosurge ry 1 Special Needs Anspach documented in this encounter Social History Tobacco Use Types Packs/Day Years [...] degree (e.g., MA, MS, Joanne, MEd, [employer]NAGER [employer], [employer]) 06/19/2020 Sex and Gender Information Value [...] Sign Reading Time Taken Comments Blood Pressure 84/53 09/03/2021 1539 EDT Pulse - - Temperature 37.2 ??C (99 ??F) 09/03/2021 1126 EDT Respiratory Rate 17 09/03/2021 1126 EDT Oxygen Saturation 95% 09/03/2021 1539 EDT Inhaled Oxygen Concentration - - Weight [...] Code Departure Means Destination Home or Self Custodial documented in this encounter Progress Notes * Macrina Gilliam MD - 09/03/2021 1705 EDT Neurosurgery Progress Note Problems/ Left L45 [...] GILLIAM MD 09/03/2021 17:05 Neurosurgery Resident Page [phone] documented in this encounter H&P Notes * [...] 03/24/2021: LTFESI L5 left at [facility] spine [facility] ??? Migraine with aura and without status migrainosus, not intractable 08/21/2020 ??? Lumbosacral radiculopathy at L5 08/08/2021 Added automatically from request for surgery [id number] ??? Obsessive-compulsive disorder 09/08/2012 ??? Constipation by [...] intrathoracic) 2. History of CAD (history of TX or a positive ETT, current ischemic chest [...] with speech recognition software or keyboard data processing manager techniques. Minor irregularities or keyboarding misprints may [...] Prevention of Infective Endocarditis Guidelines From the [place] [employer]: A Guideline From the [place] [employer] Rheumatic Fever, Endocarditis, and Kawasaki Disease Committee, [place] on Cardiovascular Disease in the [place], and the [place] on Clinical Cardiology, [place] on Cardiovascular Surgery and Anesthesia, and the Quality of Care and Outcomes Research Interdisciplinary Working Group. Please see Circulation. 2007;116:5119-3071 for the detailed indications. Joan-operative betablocker (BB) [...] for noncardiac surgery. A report of the [place] [employer] Foundation/[place] [employer] Task Force on Practice Guidelines. Please see J Am Marlys Cardiol. 2009; Feb 05;54(22):k80-b852 for the detailed indications. documented in this [...] DIAGNOSIS: POSTOPERATIVE DIAGNOSIS: SURGEON: Walker Pride MD PRESS DEPARTMENT MANAGER: ANESTHESIA: INDICATIONS: Ms Toribio is a 31-year-old [...] of the L5 pedicle palpated with a [place] dental. A 3 mm [place] rongeur was [...] retained. Walker Pride MD / AM Confirmation: [id number] Dictation ID: [id number] cc: documented in this encounter Miscellaneous Notes * Brief Op Note - Jaspal Roa MD - 09/03/2021 1541 EDT BRIEF OP NOTE PRE-OP DIAGNOSIS = Left L45 disc herniation, Left L5 radiculopathy POST-OP DIAGNOSIS = same as above PROCEDURE = Left L45 lateral recess decompression, microdiscectomy SURGEON = Walker Pride MD PRESS DEPARTMENT MANAGER = Jaspal Roa MD ANESTHESIA = GETA [...] Roa MD Neurosurgery resident 09/03/2021 15:44 Page [phone] with questions documented in this encounter Plan of Treatment Upcoming Encounters Date Type Department Care Team (Late st Contact Info) Description 10/22/2023 13:25 EDT Hospital Encounter [facility] OR [address] [place] [address] [phone] Walker Pride MD [address] [place] [phone] 10/22/2023 13:25 EDT - 10/22/2023 17:00 EDT Surgery [facility] [place] [address] [place] [address] [phone] Walker Pride MD [address] [place] [phone] Left L34 decompression, redo left L45 decompression [16308 (CPT??)] 11/22/2023 10:00 EDT Post-op Visit [facility] Neurosurgery - [address] [phone] Madiha Hurtado NP [address] [place] [phone] Scheduled Procedures Name Priority Associated Diagnoses Date/Ti [...] ?? Disc displ L4-5 discectomy check level 65424 Done in ORexam #2 Comparison: ?? Lumbar [...] Symptoms/Comments: Disc displ L4-5 discectomy check level 59457 Done in ORexam #2 Comparison: Lumbar spine [...] ?? Disc displ L4-5 discectomy check level 75672 Done in OR COMPARISON: MR lumbar spine 07/29/2021 Procedure Note Koby Muller MD - 09/03/2021 XR LUMBAR SPINE 1 VIEW 09/03/2021 2:00 PM SIGNS AND SYMPTOMS: Disc displ L4-5 discectomy check level 07740 Done in OR COMPARISON: MR lumbar spine [...] andagree with the findings. Walker Pride MD [facility] [place] DIAGNOSTIC AGING ORDERABLES * TEST, URINE (09/03/2021 11:47 EDT) Test, Urine Negative Negative 09/03/2021 11:58 EDT [facility] Comment:False negative resul ts may occur in women who are beyond 5-8 weeks gestation. Diagnosis of should be based on a correlation of test results with typical clinical signs and symptoms. Urine URINE / Unknown Urine Collect / Unknown 09/03/2021 11:47 EDT 09/03/2021 11:50 EDT Leonie Hawk MD URINALYSIS ORDER JORDI [facility] [address] [place] [address] documented in this encounter Visit Diagnoses Diagnosis [...] on Wed09/03/21 at 1512, Until Wed09/03/21 at 2001, Symptomatic HR < 50, Routine, Recovery (only) bupivacaine-EPINEPHrine (PF) 0.25 %-1:200,000 injection PRN, Starting on Wed09/03/21 at 1413, Until Wed09/03/21 at 1533, Routine, Intraprocedure Given 09/03/2021 14:13 EDT 10 mL Back diphenhydrAMINE (BENADRYL) injection 12.5 mg 12.5 mg, intravenous, PRN, 1 dose, Starting on Wed09/03/21 at 1512, Until Wed09/03/21 at 2001, nausea, Routine, Recovery (only) fentaNYL citrate (PF) injection 25-50 mcg 25-50 mcg, intravenous, EVERY 5 MIN PRN, Starting on Wed09/03/21 at 1512, Until Wed09/03/21 at 2000, Pain, Routine, Recovery (only) Given 09/03/2021 16:22 EDT 25 mcg Given 09/03/2021 15:59 EDT 25 mcg gelatin absorbable powder (SURGIFOAM) PRN, Starting on Wed09/03/21 at 1413, Until Wed09/03/21 at 1533, Intraprocedure Given 09/03/2021 14:13 EDT 1 Each Other HYDROmorphone (DILAUDID) tablet 2-4 mg 2-4 mg, [...] (only) thrombin (bovine) 5,000 unit topical solution PRN, Starting on Wed09/03/21 at 1413, Until Wed09/03/21 at 1533, Intraprocedure Given 09/03/2021 14:13 EDT 5,000 Units Other documented in this encounter Active and Recently [...] on Wed09/03/21 at 1512, Until Wed09/03/21 at 2001, nausea, Routine, Recovery (only) fentaNYL citrate (PF) [...] on Wed09/03/21 at 1512, Until Wed09/03/21 at 2001, Pain, Routine, Recovery (only) 1557 (Given - [...] 0.1 mg/mL syringe 0.5 mg 1 022 ceFAZolin (ANCEF) syringe 2 g 1 09/03/2021 diphenhydrAMINE (BENADRYL) i njection 12.5 mg 1 09/03/2021 ibuprofen (MOTRIN) tablet 400 mg 1 09/04/19 lactated ringers (LR) infusion 1 09/03/2021 lidocaine (PF) 10 mg/mL (1 % ) injection 2 mg 1 09/03/2021 naloxone (NARCAN) injection 0.2 mg 1 2021 ondansetron (PF) (ZOFRAN) injection 4 mg 1 09/03/2021 Nursing Count Last Ordered Date First Orde red Date ACTIVITY INSTRUCTIONS 1 09/03/2021 BATHING INSTRUCTIONS 1 09/03/2021 LIFTING INSTRUCTIONS 1 09/03/2021 PLACE ANTI-EMBOLISM STOCKINGS 1 09/03/2021 PLACE SEQUENTIAL COMPRESSION DEVICE 1 09/03 WOUND CARE INSTRUCTIONS 1 09/03/2021 Discharge Count Last Ordered Date First Orde red Date DISCHARGE PATIENT 1 09/03/2021 Legal Count Last Ordered Date First Orde red Date MISCELLANEOUS DISCHARGE INSTRUCTIONS 2 08/14 documented in this encounter Care Teams Electromechanic Relationship Specialty Start Date End Date Bri Murphy PA-C [phone] [facility] [address] [place] [phone] PCP - General Internal Medicine - Primary Care 10/16/19 09/15/21 documented as of this encounter
--- OUTSIDE RECORDS SUMMARY | 2023-10-19 15:34 | XMS_ITS | Encounter Summary ---
Author Organization [facility] Address [address] [place] [address] Care Team Providers Care Corporate Strategy Intern Name Role Phone Galilea Mars NP Primary Care Provider [phone] Reason for Referral * Radiology Services (Routine/Next Available) - Closed Specialty Diagnoses / Procedures Referred By Liat mehta Referred To Contact Radiology Diagnoses Neck pain Cervical radiculopathy Procedures MR CERVICAL SPINE WO CONTRAST Galilea Mars NP [address] [place] [address] [facility] Referral ID Status Reason Start Date Expiration Date Visits Re quested Visits Authorized [id number] Closed 03/30/2022 09/26/2022 1 1 Reason for Visit * Reason Comments Neck Pain 2014 hurt it trying to help her pot belly pig which weighed about 130lbs went PT. Gets locked up pain becomes about #7 Encounter Details Date Type Department Care Team (Latest Contact Info) Description 03/19/2022 13:15 EST Office Visit [facility] - [place] [address] [place] [address] Galilea Mars NP [address] [place] [address] Neck pain (Primary Dx); Cervical radiculopathy Social History Tobacco Use Types [...] you? Never 09/30/2021 How often does anyone, christophernadia daniel family, insult, scream, curse or threaten to hurt you? Never 09/30/2021 Education Answer Date Recorded What is the highest level of school you have completed or the highest degree you have received? 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, LILA) 06/19/2020 Sex and Gender Information Value Date Recorded Sex Assigned at Female 10/08/2022 13:26 EDT Gender Identity Female 07/29/2021 16:35 EDT Sexual Orientation Straight 10/08/2022 13 :26 EDT documented as of this encounter Last Filed Vital Signs Vital Sign Reading Time Taken Comments Blood Pressure 112/72 03/19/2022 1315 EST Pulse 72 03/19/2022 1315 EST Temperature 37 ??C (98.6 ??F) 03/19/2022 1315 EST Respiratory Rate 18 03/19/2022 1315 EST Oxygen Saturation - - Inhaled Oxygen Concentration - - Weight 74.4 kg (164 lb) 03/19/2022 1315 EST Height - - Body Mass Index 27.72 10/01/2021 1010 EDT documented in this encounter Ordered Prescriptions Prescription Sig Dispensed Refills Start Date End Da te LORazepam (ATIVAN) 0.5 mg tablet Take 1 Tablet by mouth 1 (one) time for 1 dose. Daily Max: 0.5 mg 1 Tablet 03/19/2022 03/19/2022 documented in this encounter Progress Notes * Galilea Mars NP - 03/19/2022 5435 EST Subjective: Patient ID: Teri Toribio is an 31 y.o. female. Chief Complaint Patient presents with ??? Neck Pain 2013 hurt it trying to help her pot belly pig which weighed about 130lbs went PT. Gets locked up pain becomes about #7 HPI Teri is here to discuss chronic neck pain. Patient reports she hurt her neck in 2013 after trying to picking tech her pet pig. She did PT for a while without any improvement. Pain has come and gone since. memory care program resident helps some but is temporary. Has episodes where she locks up - turns head in one direction or the other, very painful catch and then difficulty continuing with ROM. Trapezius will become swollen and ROM is very painful after these events. Started having numbness and tingling inleft arm a few weeks ago, has been a few episodes. No muscle weakness. Patient Active Problem List Diagnosis ??? Contraceptive management ??? Constipation by delayed colonic transit ??? Obsessive-compulsive disorder ??? Migraine with aura and without status migrainosus, not intractable ??? L4-L5 disc bulge ??? Lumbosacral radiculopathy at L5 Outpatient Medications Marked as Taking for the 03/19/22 encounter (Office Visit) with Galilea Mars NP Medication Sig Dispense Refill ??? acetaminophen (TYLENOL) 500 mg tablet Take 2 Tablets by mouth every 6 hours as needed for Pain. ??? clotrimazole-betamethasone (LOTRISONE) cream Apply to affected areas on hands twice daily 45 g 1 ??? cyanocobalamin (VITAMIN B-12) 500 mcg tablet Take 500 mcg by mouth daily. ??? levonorgestreL (MIRENA) 20 mcg/24 hours (8 yrs) 52 mg IUD 1 Each by intrauterine route once. 2016 ??? sertraline (ZOLOFT) 100 mg tablet Take 1 Tablet by mouth daily. 90 Tablet 3 ROS - See HPI Objective: BP 112/72 Pulse 72 Temp 37 ??C (98.6 ??F) (Skin) Resp 18 Wt 74.4 kg (164 lb) BMI 27.72 kg/m?? Physical Exam Vitals reviewed. Constitutional: General: She is not in acute distress. Appearance: Normal appearance. She is well-developed, well-groomed and well- nourished. She is not ill-appearing or diaphoretic. Eyes: General: No scleral icterus. Pulmonary: Effort: Pulmonary effort is normal. Musculoskeletal: Cervical back: Swelling present. No edema, deformity, rigidity or spasms. Pain with movement present. Decreased range of motion (lateral bending bilaterally with mild limitations). Comments: BUE with equal strength and sensation. Skin: General: Skin is warm and dry. Neurological: General: No focal deficit present. Mental Status: She is alert. Gait: Gait is intact. Deep Tendon Reflexes: Reflex Scores: Tricep reflexes are 2+ on the right side and 1+ on the left side. Brachioradialis reflexes are 2+ on the right side and 2+ on the left side. Psychiatric: Mood and Affect: Mood and affect normal. Behavior: Behavior normal. Behavior is cooperative. Assessment / Plan: Teri was seen today for neck pain. Diagnoses and all orders for this visit: Neck pain Cervical radiculopathy Pain ongoing for some time. Patient has participated in conservative treatment including OTC medications, PT, lawn care worker. With new radicular symptoms, recommend MRI. I've counseled patient regarding importance of proper posture when on phone, computer, or reading. I provided patient with lorazepam for MRI given claustrophobia. Advised her to have a farm truck driver. She expressed understanding. - MR CERVICAL SPINE WO CONTRAST; Future - LORazepam (ATIVAN) 0.5 mg tablet; Take 1 Tablet by mouth 1 (one) time for 1 dose. Daily Max: 0.5 mg Galilea Mars NP 03/19/2022 13:26 documented in this encounter Plan of Treatment Upcoming Encounters Date Type Department Care Team (Late st Contact Info) Description 10/22/2023 13:25 EDT Hospital Encounter [facility] [place] [address] [place] [address] Walker Pride MD [address] [facility], [address] [place] [address] 10/22/2023 13:25 EDT - 10/22/2023 17:00 EDT Surgery [facility] [place] [address], [place] [id number] Walker Pride MD [address] [facility], [facility], [address] [place] [phone] Left L34 decompression, redo left L45 decompression [83430 (CPT??)] 11/22/2023 10:00 EDT Post-op Visit [facility] Neurosurgery - [address] [id number] Madiha Hurtado NP [address] [facility], [facility], [address] [place] [address] Scheduled Procedures Name Priority Associated Diagnoses Date/Ti me LAMINECTOMY, SPINE, LUMBAR, 1 LEVEL, WITH FORAMINOTOMY OR FACETECTOMY Lumbar radiculopathy 10/22/2023 13:25 EDT LAMINECTOMY, SPINE, WITH FACETECTOMY AND FORAMINOTOMY, ADDITIONAL LEVEL FOLLOWING INITIAL LEVEL Lumbar radiculopathy 10/22/2023 13:25 EDT documented as of this encounter Results * MR CERVICAL SPINE WO CONTRAST (04/02/2022 7:10 EST) Anatomical Region Laterality Modality Spine Magnetic Resonan ce 04/02/2022 9:40 EST Impressions 04/02/2022 9:40 EST Multilevel degenerative disc, facet, and uncovertebral disease which is notable for moderate spinal canal stenosis at C5-6 secondary to disc bulge with central disc protrusion resulting in deformation of the spinal cord but no spinal cord signal abnormality. Additional spinal canal stenosis is mild to moderate at C6-7 and mild at C4-5. Narrative 04/02/2022 9:40 EST EXAM: MRI CERVICAL SPINE WO CONTRAST HISTORY: Neck pain, initial exam; neck pain with intermittent radicular symptoms TECHNIQUE: MRI of the cervical spine without contrast. Structured report code: [id number] COMPARISON: None. FINDINGS: SURGICAL CHANGES: None. ALIGNMENT: Slight straightening of the normal cervical lordosis. No significant spondylolisthesis per BONES: No significant vertebral body height loss. Intraosseous hemangioma in the T1 vertebral body. No concerning lesions. INTERVERTEBRAL DISCS: Mild degenerative disc changes, most notable at C5-6. SPINAL CANAL AND SPINAL CORD: No abnormal cord signal intensity. No fluid collections. VISIBLE EXTRASPINAL SOFT TISSUES AND INTRACRANIAL CONTENTS: Unremarkable. EVALUATION BY LEVEL: C1-C2: No stenosis. C2-C3: No spinal canal or neural foraminal stenosis. C3-C4: Small disc bulge without spinal canal stenosis. Right uncovertebral hypertrophy contributing to mild right neural foraminal stenosis. C4-C5: Disc bulge narrows the ventral thecal sac contributing to mild spinal canal stenosis. No neural foraminal stenosis. C5-C6: Disc bulge with central disc protrusion contributes to moderate spinal canal stenosis with deformation of the spinal cord but no spinal cord signal abnormality. No neural foraminal stenosis. C6-C7: Left central disc protrusion narrows the spinal canal contributing to mild to moderate spinal canal stenosis. No neural foraminal stenosis. C7-T1: Facet arthropathy contributes to minimal narrowing of the left neural foramen. No spinal canal stenosis. Procedure Note Shahzad Way MD - 04/02/2022 EXAM: MRI CERVICAL SPINE WO CONTRAST HISTORY: Neck pain, initial exam; neck pain with intermittent radicularsymptoms TECHNIQUE: MRI of the cervical spine without contrast. Structured reportcode: [id number] COMPARISON: None. FINDINGS: SURGICAL CHANGES: None. ALIGNMENT: Slight straightening of the normal cervical lordosis. No significantspondylolisthesis per BONES: No significant vertebral body height loss. Intraosseous hemangioma in theT1 vertebral body. No concerning lesions. INTERVERTEBRAL DISCS: Mild degenerative disc changes, most notable at C5-6. SPINAL CANAL AND SPINAL CORD: No abnormal cord signal intensity. No fluid collections. VISIBLE EXTRASPINAL SOFT TISSUES AND INTRACRANIAL CONTENTS: Unremarkable. EVALUATION BY LEVEL: C1-C2: No stenosis. C2-C3: No spinal canal or neural foraminal stenosis. C3-C4: Small disc bulge without spinal canal stenosis. Right uncovertebralhypertrophy contributing to mild right neural foraminal stenosis. C4-C5: Disc bulge narrows the ventral thecal sac contributing to mildspinal canal stenosis. No neural foraminal stenosis. C5-C6: Disc bulge with central disc protrusion contributes to moderatespinal canal stenosis with deformation of the spinal cord but no spinalcord signal abnormality. No neural foraminal stenosis. C6-C7: Left central disc protrusion narrows the spinal canal contributingto mild to moderate spinal canal stenosis. No neural foraminal stenosis. C7-T1: Facet arthropathy contributes to minimal narrowing of the leftneural foramen. No spinal canal stenosis. IMPRESSION Multilevel degenerative disc, facet, and uncovertebral disease which isnotable for moderate spinal canal stenosis at C5-6 secondary to disc bulgewith central disc protrusion resulting in deformation of the spinal cordbut no spinal cord signal abnormality. Additional spinal canal stenosis ismild to moderate at C6-7 and mild at C4-5. Galilea Mars NP IMG MRI ORDERABLES documented in this encounter Visit Diagnoses Diagnosis Neck pain- Primary Cervicalgia Cervical radiculopathy Brachial neuritis or radiculitis nos Neck pain Cervicalgia Cervical radiculopathy Brachial neuritis or radiculitis nos Lumbar radiculopathy Thoracic or lumbosacral neuritis or radiculitis, unspecified documented in this encounter Historical Medications * This list may reflect changes made after this encounter. Medication Sig Dispensed Refills Start Date End Date cyanocobalamin (VITAMIN B-12) 500 mcg tablet Take 2 Tablets by mouth daily. added in this encounter Care Teams Corporate Strategy Intern Relationship Specialty Start Date End Date Galilea Mars NP [address] [place] [phone] PCP - General 09/16/21 documented as of this encounter
--- OUTSIDE RECORDS SUMMARY | 2023-10-19 15:34 | XMS_ITS | Encounter Summary ---
Author Organization [facility] Address [address] [place] [address] Care Team Providers Care Rejogger Name Role Phone Bri Murphy PA-C Primary Care Provider [phone] Reason for Visit * Auth/Cert Specialty Diagnoses / Procedures Referred By Liat t Referred To Contact Diagnoses Lumbosacral radiculopathy at L5 Procedures OR LAMNOTMY INCL W/DCMPRSN NRV ROOT 1 INTRSPC LUMBR Left L45 microdiscectomy Referral ID Status Reason Start Date Expiration Date Visits Re quested Visits Authorized [id number] 1 1 Encounter Details Date Type Department Care Team (Late st Contact Info) Description 09/03/2021 13:26 EDT Anesthesia Event [facility] [place] [address] [place], [place] [phone] Duke Rosa MD PhD [address] [phone] Tiffany Gonzales MD [address] [phone] Anesthesia Record Procedure Summary Procedure Name Responsible Anesthesiologist Anesthesia Start Time Anesthesia Stop Time Left L45 microdiscectomy (Left: Spine Lumbar) Duke Rosa MD PhD 09/03/21 1326 09/03/21 1547 Events Date Time Event Comment 09/03/2021 1326 An Start The patient was re-evaluated immediately before moderate or deep sedation use, before anesthesia induction, or before the anesthesia procedure. 1327 An Start Data 1332 An Induction The patient was reevaluated immediately before moderate or deep sedation use and before anesthesia induction. 1341 An Intubation 1344 Anesthesia Ready 1531 An Extubation Spontaneous ve ntilation resumed; any neuromuscular blockade reversed or spontaneously resolved; TOF and DBS without fade; purposeful movement; awake extubation 1535 an stop data 1546 Handoff to RN I completed my handoff to the receiving nurse during which we: 1. Identified the patient 2. Identified the responsible provider 3. Reviewed the pertinent medical history 4. Discussed the surgical course 5. Reviewed intra-op anesthesia management and issues during anesthesia 6. Set expectations for post-procedure period 7. Allowed opportunity for questions and acknowledgement of understanding. 1547 An Stop Meds Name Total dexaMETHasone (DECADRON) injection 4 mg/ mL (for IV doses up to 10mg) 4 mg fentanyl citrate (PF) injection 100 mcg glycopyrrolate pre-filled syringe 0.15 m g ketAMINE 5 mL prefilled syringe 10 mg midazolam (versed) 1 mg/mL 2 mL vial 2 m g neostigmine (BLOXIVERZ) injection 1 mg/m L 3 mL syringe 1 mg ondansetron (PF) (ZOFRAN) injection 4 mg propOFol (DIPRIVAN) injection 170 mg propOFol injection 1,168,400 mcg rocuronium 10 mg/mL vial 60 mg dexmedetomidine injection - vial 30 mcg ceFAZolin (ANCEF) syringe 2 g 2 g lactated ringers (LR) infusion 0 mL * Agents Name O2 N2O Air * Blood No blood administrations on file. Lines, Drains, and Airways Type Details Placement Removal Peripheral IV 09/03/21; 1202; 20; Left; Hand; Inserted by RN; 1; None; 2% Chlorhexidine with IPA; 09/03/21; 1750; Discharged; No complications 09/03/21 1202 by Shyanne Vieira RN 09/03/21 1750 by Beverly Paulino RN Wound 09/03/21; 1404; Inci ayaan; Lower, Midline; Back; Left L45 microdiscectomy; N; Full thickness; 10/06/23; 1519; Unknown 09/03/21 1404 by Geri Fischer RN 10/06/23 1519 by Kera Gilliam RN Non-Surgical Airway 09/03/21; 1412 (ashley phillip via procedure documentation); 09/03/21; 1535 09/03/21 1412 by Suhail Rivera CRNA 09/03/21 1535 by Suhail Rivera CRNA documented in this encounter Social History Tobacco [...] in a group home (including now)? No 06/19/2020 Interpersonal Safety Answer Date Record ed Physically Hurt Never 10/27/2019 Verbally Threaten Never 10/27/2019 Education Answer Date Recorded What is the highest level of school you have completed or the highest degree you have received? Master's degree (e.g., MA, MS, Joanne, MEd, LIVESTOCK SPECULATOR, LILA) 06/19/2020 Sex and Gender Information Value [...] 9:10 EDT documented as of this encounter OR Notes * Anesthesia Postprocedure Evaluation - Suhail Rivera, RENE - 09/03/2021 0097 EDT Patient: Teri Toribio Vital signs were reviewed with the recovery nurse. Complete vitals history is available in the [facility]. Vitals Value Taken Time BP 90/53 09/03/21 1545 Temp 09/03/21 1547 Resp 19 09/03/21 1547 Pulse From Oximetry 63 BPM 09/03/21 1547 SpO2 96 % 09/03/21 1547 Vitals shown include unvalidated device data. Last Pain Score - Numeric Pain Level (Scale 1-10): 6 Type of Anesthesia - general Anesthesia Post Evaluation Post-procedure vitals reviewed and are stable. Level of consciousness: alert and oriented Temperature status: normothermia Respiratory status: airway patent, O2 Sat-appropriate for condition and room air Cardiovascular status: appropriate for condition Hydration status: adequate Nausea/Vomiting: none Pain management: adequate Post-Op Assessment: patient tolerated procedure well with no complications Patient participation: able to participate Disposition: outpatient/home Anesthesia Complications: No apparent anesthesia complications * Anesthesia Preprocedure Evaluation - Suhail Rivera CRNA - 09/03/2021 1416 EDT Anesthesia Preprocedure Evaluation Patient Medical History, including Anesthesia History reviewed. Chart and Nursing Notes reviewed, including NPO status and Medication History. Additional ROS/History Findings: No Known Allergies Review of Systems Constitutional: Negative for fever. Respiratory: Negative for cough. Gastrointestinal: Negative for heartburn. Musculoskeletal: Positive for back pain. Negative for neck pain. Past Medical History: Diagnosis Date ??? Activity, other involving cardiorespiratory exercise 09-03-21 prior to the injury the pt was running 2 miles a day ??? Back pain 08-27-21 left-sided low back pain with radiculopathy. ??? Bradycardia 08-27-21- pt staes she has a lower HR than most ??? Exercise involving housework 08-27-21 tries is ??? Migraine with aura, not intractable Relevant Problems Neuro/Psych (+) Migraine with aura and without status migrainosus, not intractable CARDIOVASCULAR (+) Migraine with aura and without status migrainosus, not intractable Physical Exam Airway Mallampati: II TM distance: >3 FB Neck ROM: full Cardiovascular Rhythm: regular Rate: normal Dental Pulmonary Breath sounds clear to auscultation Abdominal Anesthesia Plan ASA 2 Anesthesia Type - general Anesthesia plan and risks discussed. Informed consent obtained from patient. PAT Note Notes from 08/04/21 through 09/03/21 No notes of this type exist for this encounter. * Anesthesia Procedure Notes - Suhail Rivera CRNA - 09/03/2021 1411 EDTAssociated Order(s): Airway Airway Date/Time: 09/03/2021 13:41 Urgency: elective Airway not difficult General Information and Staff Patient location during procedure: OR Performed: resident/JUNIOR DATA ANALYST/AA Indications and Patient Condition Indications for airway management: anesthesia Sedation level: GA Preoxygenated: yes Patient position: sniffing Ventilation assessment: 1 - Easy Final Airway Details Final airway type: endotracheal airway Successful airway: ETT Cuffed: yes Successful intubation technique: direct laryngoscopy Facilitating devices/methods: intubating stylet Endotracheal tube insertion site: oral Blade: Romeo Blade size: #3 ETT size (mm): 6.5 Cormack-Lehane Classification: grade I - full view of glottis Placement verified by: capnometry and palpation of cuff Inital cuff pressure (cm H2O): 25 Measured from: teeth ETT to teeth (cm): 21 Number of attempts at approach: 1 documented in this encounter Plan of Treatment Upcoming Encounters Date Type Department Care Team (Late st Contact Info) Description 10/22/2023 13:25 EDT Hospital Encounter [facility] OR [address] [place] [phone] Walker Pride MD [address] [place] [address], [address] [place] [phone] 10/22/2023 13:25 EDT - 10/22/2023 17:00 EDT Surgery [facility] OR [address] [place] [address] [phone] Walker Pride MD [address] [facility], [address] [place] [phone] Left L34 decompression, redo left L45 decompression [85716 (CPT??)] 11/22/2023 10:00 EDT Post-op Visit [facility] Neurosurgery - [facility] [address], [place] [phone] Madiha Hurtado NP 111 [facility], [address] [place] [phone] Scheduled Procedures Name Priority Associated Diagnoses Date/Ti me LAMINECTOMY, SPINE, LUMBAR, 1 LEVEL, WITH FORAMINOTOMY OR FACETECTOMY Lumbar radiculopathy 10/22/2023 13:25 EDT LAMINECTOMY, SPINE, WITH FACETECTOMY AND FORAMINOTOMY, ADDITIONAL LEVEL FOLLOWING INITIAL LEVEL Lumbar radiculopathy 10/22/2023 13:25 EDT documented as of this encounter Procedures Procedure Name Priority Date/Time Associated Diagnosis Comments ANESTHESIA INTUBATION Routine 09/03/2021 13:41 EDT documented in this encounter Results * OR AN ELECTIVE ENDOTRACHEAL AIRWAY (09/03/2021 13:41 EDT) Narrative Suhail Rivera CRNA - 09/03/2021 13:41 EDT Suhail Rivera CRNA ? 09/03/2021 14:12 Airway Date/Time: 09/03/2021 13:41 Urgency: elective Airway not difficult General Information and Staff Patient location during procedure: OR Performed: resident/JUNIOR DATA ANALYST/AA Indications and Patient Condition Indications for airway management: anesthesia Sedation level: GA Preoxygenated: yes Patient position: sniffing Ventilation assessment: 1 - Easy Final Airway Details Final airway type: endotracheal airway Successful airway: ETT Cuffed: yes Successful intubation technique: direct laryngoscopy Facilitating devices/methods: intubating stylet Endotracheal tube insertion site: oral Blade: Romeo Blade size: #3 ETT size (mm): 6.5 Cormack-Lehane Classification: grade I - full view of glottis Placement verified by: capnometry and palpation of cuff Inital cuff pressure (cm H2O): 25 Measured from: teeth ETT to teeth (cm): 21 Number of attempts at approach: 1 Duke Rosa MD PhD ANESTHE TONY ORDERABLES documented in this encounter Visit Diagnoses Not on filedocumented in this encounter Administered Medications Inactive Administered Medications - up to 3 most recent administrations Medication Order MAR Action Action Date Dose Rate Site ceFAZolin (ANCEF) syringe 2 g 2 g, intravenous, Administer over 5 Minutes, PRE-OP ONCE, 1 dose, On Wed09/03/21 at 1200, Routine, Preprocedure Given 09/03/2021 13:42 EDT 2 g dexAMETHasone (DECADRON) injection intravenous, PRN, Starting on Wed09/03/21 at 1413, Until Wed09/03/21 at 1547, Routine, Anesthesia Intraprocedure Given 09/03/2021 14:13 EDT 4 mg dexmedeTOMIDine (PRECEDEX) injection intravenous, PRN, Starting on Wed09/03/21 at 1333, Until Wed09/03/21 at 1547, Routine, Anesthesia Intraprocedure Given 09/03/2021 13:59 EDT 10 mcg Given 09/03/2021 13:50 EDT 10 mcg Given 09/03/2021 13:33 EDT 10 mcg fentaNYL citrate (PF) injection intravenous, PRN, Starting on Wed09/03/21 at 1359, Until Wed09/03/21 at 1547, Routine, Anesthesia Intraprocedure Given 09/03/2021 13:59 EDT 100 mcg glycopyrrolate (PF) (ROBINUL) 0.4 mg/2 mL (0.2 mg/mL) injection intravenous, PRN, Starting on Wed09/03/21 at 1515, Until Wed09/03/21 at 1547, Routine, Anesthesia Intraprocedure Given 09/03/2021 15:15 EDT 0.15 mg ketAMINE in NaCl, iso-osmotic (KETALAR) 50 mg/5 mL (10 mg/mL) IV injection intravenous, PRN, Starting on Wed09/03/21 at 1334, Until Wed09/03/21 at 1547, Routine, Anesthesia Intraprocedure Given 09/03/2021 13:34 EDT 10 mg lactated ringers (LR) infusion 30 mL/hr, intravenous, CONTINUOUS, Starting on Wed09/03/21 at 1200, Until Wed09/03/21 at 2001, Routine, Preprocedure Restarted 09/03/2021 13:27 EDT Continued by Anesthesia 09/03/2021 13:26 EDT 30 mL/hr New Bag 09/03/2021 12:02 EDT 30 mL/hr 30 mL/hr midazolam (PF) (VERSED) injection intravenous, PRN, Starting on Wed09/03/21 at 1330, Until Wed09/03/21 at 1547, Routine, Anesthesia Intraprocedure Given 09/03/2021 13:30 EDT 2 mg neostigmine methylsulfate (BLOXIVERZ) injection intravenous, PRN, Starting on Wed09/03/21 at 1515, Until Wed09/03/21 at 1547, Routine, Anesthesia Intraprocedure Given 09/03/2021 15:15 EDT 1 mg ondansetron (PF) (ZOFRAN) injection intravenous, PRN, Starting on Wed09/03/21 at 1516, Until Wed09/03/21 at 1547, Routine, Anesthesia Intraprocedure Given 09/03/2021 15:16 EDT 4 mg propOFol (DIPRIVAN) injection intravenous, PRN, Starting on Wed09/03/21 at 1335, Until Wed09/03/21 at 1547, Routine, Anesthesia Intraprocedure Given 09/03/2021 13:35 EDT 170 mg propOFol (DIPRIVAN) injection intravenous, FA IP EQF CONTINUOUS PRN FOR ONE STEP MEDS, Starting on Wed09/03/21 at 1337, Until Wed09/03/21 at 1547, Routine, Anesthesia Intraprocedure Rate Change 09/03/2021 15:22 EDT 50 mcg/kg/min 22.08 mL/hr Rate Change 09/03/2021 15:16 EDT 75 mcg/kg/min 33.12 mL/hr Rate Change 09/03/2021 14:16 EDT 150 mcg/kg/min 66.24 mL/h r rocuronium (ZEMURON) injection intravenous, PRN, Starting on Wed09/03/21 at 1336, Until Wed09/03/21 at 1547, Routine, Anesthesia Intraprocedure Given 09/03/2021 13:36 EDT 60 mg documented in this encounter Care Teams Rejogger Relationship Specialty Start Date End Date Bri Murphy PA-C [address] [place] [phone] PCP - General Internal Medicine - Primary Care 10/16/19 09/15/21 documented as of this encounter
--- OUTSIDE RECORDS SUMMARY | 2023-10-19 15:34 | XMS_ITS | Encounter Summary ---
Author Organization [facility] Address [address] [place] [address] Care Team Providers Care Fire Equipment Operator Name Role Phone Galilea Mars CLOTH EXAMINER Primary Care Provider Encounter Details Date Type Department Care Team (Late st Contact Info) Description 12/09/2021 Orders Only [facility] Adult Primary Care - [place] [address] [place] [address] Galilea Mars, CLOTH EXAMINER [address] [place] [phone] Social History Tobacco Use Types Packs/Day Years [...] place to sleep or slept in a long term (including now)? No 09/30/2021 Interpersonal Safety Answer [...] Master's degree (e.g., MA, MS, Joanne, MEd, ASSISTANT PROFESSOR OF GERMAN, LILA) 06/19/2020 Sex and Gender Information Value Date Recorded Sex Assigned at Female 10/08/2022 13:26 EDT Gender Identity Female 07/29/2021 16:35 EDT Sexual Orientation Straight 10/08/2022 13 :26 EDT documented as of this encounter Plan of Treatment Upcoming Encounters Date Type Department Care Team (Late st Contact Info) Description 10/22/2023 13:25 EDT Hospital Encounter [facility] OR [address] [place] [phone] Walker Pride MD [address] [place] [phone] 10/22/2023 13:25 EDT - 10/22/2023 17:00 EDT Surgery [facility] OR [address] [place] [address] [phone] Walker Pride MD [address] [place] [phone] Left L34 decompression, redo left L45 decompression [[id number] (CPT??)] 11/22/2023 10:00 EDT Post-op Visit [facility] Neurosurgery - [address] [address] Madiha Hurtado NP [address] [place] [phone] Scheduled Procedures Name Priority Associated Diagnoses Date/Ti me LAMINECTOMY, SPINE, LUMBAR, 1 LEVEL, WITH FORAMINOTOMY OR FACETECTOMY Lumbar radiculopathy 10/22/2023 13:25 EDT LAMINECTOMY, SPINE, WITH FACETECTOMY AND FORAMINOTOMY, ADDITIONAL LEVEL FOLLOWING INITIAL LEVEL Lumbar radiculopathy 10/22/2023 13:25 EDT documented as of this encounter Visit Diagnoses Not on filedocumented in this encounter Discontinued Medications Medication Sig Discontinue Reason Start Date End Da te oxyCODONE (ROXICODONE) 5 mg immediate release tablet Take 1 Tablet by mouth every 6 hours as needed for Pain. Daily Max: 20 mg 09/03/2021 12/09/2021 methocarbamoL (ROBAXIN) 750 mg tablet Take 1 Tablet by mouth every 8 hours as needed for Muscle Spasms. 09/03/2021 12/09/2021 gabapentin (NEURONTIN) 300 mg capsule Take 1 capsule by mouth 2 times daily. 05/02/2021 12/09/2021 documented as of this encounter Care Teams Fire Equipment Operator Relationship Specialty Start Date End Date Galilea Mars NP [address] [place] [phone] PCP - General 09/16/21 documented as of this encounter
--- OUTSIDE RECORDS SUMMARY | 2023-10-19 15:34 | XMS_ITS | Encounter Summary ---
Author Organization [facility] Address [address] [place] [address] Care Team Providers Care Claims Director Name Role Phone Galilea Mars NP Primary Care Provider [phone] Reason for Referral * Radiology Services (Routine/Next Available) - Closed Specialty Diagnoses / Procedures Referred By Contac t Referred To Contact Radiology Diagnoses Neck pain Cervical radiculopathy Procedures MR CERVICAL SPINE WO CONTRAST Galilea Mars NP [address] [place] [address] [facility] Referral ID Status Reason Start Date Expiration Date Visits Re quested Visits Authorized [id number] Closed 03/30/2022 09/26/2022 1 1 Reason for Visit * Radiology Services (Routine/Next Available) - Closed Specialty Diagnoses / Procedures Referred By Contac t Referred To Contact Radiology Diagnoses Neck pain Cervical radiculopathy Procedures MR CERVICAL SPINE WO CONTRAST Galilea Mars NP [address] [place] [address] [facility] Referral ID Status Reason Start Date Expiration Date Visits Re quested Visits Authorized [id number] Closed 03/30/2022 09/26/2022 1 1 Encounter Details Date Type Department Care Team (Latest Contact Info) Description 04/02/2022 5:49 EST - 04/02/2022 23:59 EST [facility] Radiology MRI - [address] [phone] Neck pain; Cervical radiculopathy Discharge Disposition: Home or Self [...] slept in a fpc (including now)? No 09/30/2021 Interpersonal Safety Answer [...] Master's degree (e.g., MA, MS, Joanne, MEd, OIL DRILLING ENGINEER, LILA) 06/19/2020 Sex and Gender Information Value [...] Info) Description 10/22/2023 13:25 EDT Hospital Encounter [facility] OR [address] [place] [address] [phone] Walker Pride MD [address] [place] [phone] 10/22/2023 13:25 EDT - 10/22/2023 17:00 EDT Surgery [facility] OR [address] [place] [address] [phone] Walker Pried MD [address] [place] [phone] Left L34 decompression, redo left L45 decompression [[id number] (CPT??)] 11/22/2023 10:00 EDT Post-op Visit [facility] Neurosurgery - [address] [phone] Madiha Hurtado NP [address] [place] [phone] Scheduled Procedures Name Priority Associated Diagnoses Date/Ti me LAMINECTOMY, SPINE, LUMBAR, 1 LEVEL, WITH FORAMINOTOMY OR FACETECTOMY Lumbar radiculopathy 10/22/2023 13:25 EDT LAMINECTOMY, SPINE, WITH FACETECTOMY AND FORAMINOTOMY, ADDITIONAL LEVEL FOLLOWING INITIAL LEVEL Lumbar radiculopathy 10/22/2023 13:25 EDT documented as of this encounter Procedures Procedure Name Priority Date/Time Associated Diagnosis Comments MR CERVICAL SPINE WO CONTAST Routine 04/02/2022 7:10 EST Neck pain Cervical radiculopathy documented in this encounter Results * MR CERVICAL SPINE [...] at C6-7 and mild at C4-5. Galilea BLACK MRI ORDERABLES documented in this encounter Visit Diagnoses Diagnosis Neck pain Cervicalgia Cervical radiculopathy Brachial neuritis or radiculitis nos Lumbar radiculopathy Thoracic or lumbosacral neuritis or radiculitis, unspecified documented in this encounter Care Teams Claims Director Relationship Specialty Start Date End Date Galilea Mars, CHIP MIXING MACHINE OPERATOR [address] [place] [phone] PCP - General 09/16/21 documented as of this encounter
--- OUTSIDE RECORDS SUMMARY | 2023-10-19 15:34 | XMS_ITS | Encounter Summary ---
Author Organization [facility] Address [address] [place] [address] Care Team Providers Care Associate Quality Engineer Name Role Phone Bri Murphy PA-C Primary Care Provider [phone] Encounter Details Date Type Department Care Team (Late st Contact Info) Description 08/27/2021 17:15 EDT Phlebotomy Only [facility] 2 Phlebotomy [address], [place] [id number] Territory Business Manager, Acc Phlebotomy Lumbosacral radiculopathy at L5 Social History Tobacco [...] in a long term (including now)? No 06/19/2020 Interpersonal Safety Answer Date Record ed Physically Hurt Never 10/27/2019 Verbally Threaten Never 10/27/2019 Education Answer Date Recorded What is the highest level of school you have completed or the highest degree you have received? Master's degree (e.g., MA, MS, Joanne, MEd, SENIOR RADIATION THERAPIST, LILA) 06/19/2020 Sex and Gender Information Value [...] Info) Description 10/22/2023 13:25 EDT Hospital Encounter [facility] OR [address] [place] [address] [phone] Walker Pride MD [address] [place] [address] [phone] 10/22/2023 13:25 EDT - 10/22/2023 17:00 EDT Surgery [facility] OR [address] [place] [address] [phone] Walker Pride MD [address] [place] [address] [phone] Left L34 decompression, redo left L45 decompression [38420 (CPT??)] 11/22/2023 10:00 EDT Post-op Visit [facility] Neurosurgery - [address] [phone] Madiha Hurtado NP [address] [place] [phone] Scheduled Procedures Name Priority Associated Diagnoses Date/Ti me LAMINECTOMY, SPINE, LUMBAR, 1 LEVEL, WITH FORAMINOTOMY OR FACETECTOMY Lumbar radiculopathy 10/22/2023 13:25 EDT LAMINECTOMY, SPINE, WITH FACETECTOMY AND FORAMINOTOMY, ADDITIONAL LEVEL FOLLOWING INITIAL LEVEL Lumbar radiculopathy 10/22/2023 13:25 EDT documented as of this encounter Procedures Procedure Name Priority Date/Time Associated Diagnosis Comments PROTIME Routine 08/27/2021 17:12 EDT Lumbosacral radiculopathy at L5 COMPLETE BLOOD COUNT AND DIFFERENTIAL Routine 08/27/2021 17:12 EDT Lumbosacral radiculopathy at L5 BASIC METABOLIC PANEL (BMP) Routine 08/27/2021 17:12 EDT Lumbosacral radiculopathy at L5 documented in this encounter Results * PROTIME (08/27/2021 17:12 EDT) I.N.R. 1.0 0.9 - 1.1 Ratio 08/27/2021 18:13 EDT [facility] Pro Time 11.9 10.4 - 12.6 secs 08/27/2021 18:13 EDT [facility] Blood VENOUS BLOOD / Unknown Venipuncture / Unknown 08/27/2021 17:12 EDT 08/27/2021 17:24 EDT Narrative [facility] - 08/27/2021 18:13 EDT Moderate Intensity Coumadin INR = 2.0-3.0 Adjustments in anticoagulant therapy dose should be based on the INR and NOT on the Protime. Madiha Hurtado NP HEMATOLOGY & P F4 ORDERABLES [facility] [address] [place] [address] * BASIC METABOLIC PANEL (BMP) (08/27/2021 17:12 EDT) Sodium 137 136 - 145 mmol/L 08/27/2021 18:05 EDT [facility] Potassium 4.0 3.5 - 5.0 mmol/L 08/27/2021 18:05 EDT [facility] Chloride 100 96 - 110 mmol/L 08/27/2021 18:05 [facility] CO2 Total 27 22 - 32 mmol/L 08/27/2021 18:05 [facility] Anion Gap 10 5 - 14 08/27/2021 18:05 [facility] Glucose 94 70 - 100 mg/dL 08/27/2021 18:05 [facility] Calcium 10.1 8.5 - 10.5 mg/dL 08/27/2021 18:05 [facility] BUN 10 10 - 26 mg/dL 08/27/2021 18:05 [facility] Creatinine 0.58 0.52 - 1.04 mg/dL 08/27/2021 18:05 [facility] eGFR 123 >60 mL/min/1.73 m2 08/27/2021 18:05 [facility] Blood VENOUS BLOOD / Unknown Venipuncture / Unknown 08/27/2021 17:12 EDT 08/27/2021 17:24 EDT Madiha Hurtado NP CHEMISTRY & BL OOD GAS ORDERABLES Performing Organization Address City/State/[facility] Co de Phone Number [facility] [address] [place] [address] * (ABNORMAL) COMPLETE BLOOD COUNT AND DIFFERENTIAL (08/27/2021 17:12 EDT) WBC 5.35 4.00 - 12.40 K/cmm 08/27/2021 17:55 [facility] RBC 4.24 3.86 - 5.04 M/cmm 08/27/2021 17:55 [facility] Hemoglobin 14.8 11.6 - 15.2 gm/dL 08/27/2021 17:55 [facility] HCT 40.8 34.9 - 44.4 % 08/27/2021 17:55 [facility] MCV 96 81 - 98 fl 08/27/2021 17:55 [facility] MCH 34.9(H) 26.7 - 33.3 pg 08/27/2021 17:55 [facility] MCHC 36.3(H) 32.1 - 35.9 gm/dL 08/27/2021 17:55 [facility] RDW-CV 11.0 <14.7 % 08/27/2021 17:55 [facility] RDW-SD 39.2 <50.4 fl 08/27/2021 17:55 [facility] PLT 246 141 - 377 K/cmm 08/27/2021 17:55 [facility] MPV 9.8 9.5 - 12.7 fl 08/27/2021 17:55 [facility] % Neutrophils 45.1 % 08/27/2021 17:55 [facility] % Lymphocytes 42.4 % 08/27/2021 17:55 [facility] % Monocytes 11.2 % 08/27/2021 17:55 [facility] % Eosinophils 0.7 % 08/27/2021 17:55 [facility] % Basophils 0.4 % 08/27/2021 17:55 [facility] % Immature Grans 0.2 % 08/28/19 17:55 [facility] Absolute Neutrophils 2.41 2.20 - 8.85 K/cmm 08/27/2021 17:55 [facility] Absolute Lymphocytes 2.27 1.09 - 3.30 K/cmm 08/27/2021 17:55 [facility] Absolute Monocytes 0.60 0.10 - 0.80 K/cmm 08/27/2021 17:55 [facility] Absolute Eosinophils 0.04 0.03 - 0.61 K/cmm 08/27/2021 17:55 [facility] ABS Basophils 0.02 0.01 - 0.11 K/cmm 08/27/2021 17:55 [facility] Absolute Immature Grans 0.01 0.00 - 0.06 K/cmm 08/27/2021 17:55 EDT [facility] Type of Differential: Auto 08/27/2021 17:55 EDT [facility] Blood VENOUS BLOOD / Unknown Venipuncture / Unknown 08/27/2021 17:12 EDT 08/27/2021 17:24 EDT Madiha Hurtado OIL DIPPER PACKAGES & DNA PROBE ORDERABLES Performing Organization Address City/State/[facility] Co de Phone Number [facility] [address] [place] [address] documented in this encounter Visit Diagnoses Diagnosis Lumbosacral radiculopathy at L5 Thoracic or lumbosacral neuritis or radiculitis, unspecified Lumbar radiculopathy Thoracic or lumbosacral neuritis or radiculitis, unspecified documented in this encounter Care Teams Associate Quality Engineer Relationship Specialty Start Date End Date Bri Murphy PA-C [address] [place] [phone] PCP - General Internal Medicine - Primary Care 10/16/19 09/15/21 documented as of this encounter
--- OUTSIDE RECORDS SUMMARY | 2023-10-19 15:35 | XMS_ITS | Encounter Summary ---
Author Organization [facility] Address [address] [place] [address] Care Team Providers Care Inside Account Executive Name Role Phone Bri Nieto PA-C Primary Care Provider [phone] Reason for Visit * Reason Onset Date Comments Pre-visit Orders 06/18/2020 Encounter Details Date Type Department Care Team (Late st Contact Info) Description 06/18/2020 Orders Only [facility] - [facility] [address] [place] [address] Bri Nieto PA-C [address] [place] [phone] Routine medical exam (Primary Dx) Social History Tobacco Use Types Packs/Day Years Used Date Smoking Tobacco: Never Smokeless Tobacco: Never Alcohol Use Standard Drinks/Week Comments No 0 (1 standard drink = 0.6 oz pur e alcohol) Humiliation, Afraid, Rape, and Kick questionnair e Answer Date Recorded Within the last year, have y ou been afraid of your partner or ex-partner? No 06/19/2020 Within the last year, have y ou been humiliated or emotionally abused in other ways by your partner or ex-partner? No Within the last year, have y ou been kicked, hit, slapped, or otherwise physically hurt by your partner or ex-partner? No 06/19/2020 Within the last year, have y ou been raped or forced to have any kind of sexual activity by your partner or ex-partner? No 06/19/2020 AUDIT-C Answer Date Recorded Frequency of Alcohol Consumption 2-3 times a wee k 06/19/2020 Average Number of Drinks 1 or 2 021 Frequency of Binge Drinking Less than monthly Overall Financial Resource Strain (CARDIA) Answe r Date Recorded How hard is it for you to pa y for the very basics like food, housing, medical care, and heating? Not hard at all 06/19/2020 PHQ-2 Answer Date Recorded PHQ-2 SUBTOTAL 1 06/19/2020 Exercise Vital Sign Answer Date Recorde d On average, how many days pe r week do you engage in moderate to strenuous exercise (like a brisk walk)? 7 days 06/19/2020 On average, how many minutes do you engage in exercise at this level? 60 min 06/19/2020 Hunger Vital Sign Answer Date Recorded Within the past 12 months, y ou worried that your food would run out before you got the money to buy more. Never true 10/27/19 20 Within the past 12 months, t he food you bought just didn't last and you didn't have money to get more. Never true 10/27/2019 PRAPARE - Transportation Answer Date Re corded In the past 12 months, has l ack of transportation kept you from medical appointments or from getting medications? No 09/2020 In the past 12 months, has l ack of transportation kept you from meetings, work, or from getting things needed for daily living? No 06/19/2020 Housing Stability Vital Sign Answer Kameron e [...] slept in a snf (including now)? No 06/19/2020 Interpersonal Safety Answer Date Record ed Physically Hurt Never 10/27/2019 Verbally Threaten Never 10/27/2019 Sex and Gender Information Value Date Recorded Sex Assigned at Female 10/08/2022 13:26 EDT Gender Identity Female 07/29/2021 16:35 EDT Sexual Orientation Straight 10/08/2022 13 :26 EDT documented as of this encounter Progress Notes * Kiah Padron LPN - 06/18/2020 1745 EDT labs pended documented in this encounter Miscellaneous Notes * Addendum Note - Bri Nieto PA-C - 06/18/2020 1745 EDTAddended by: BRI NIETO on: 06/20/2020 13:15 Modules accepted: Orders documented in this encounter Plan of Treatment Upcoming Encounters Date Type Department Care Team (Late st Contact Info) Description 10/22/2023 13:25 EDT Hospital Encounter [facility] OR [address] [place] [address] [phone] Walker Pride MD [address] [place] [address] [phone] 10/22/2023 13:25 EDT - 10/22/2023 17:00 EDT Surgery [facility] OR [address] [place] [address] [phone] Walker Pride MD [address] [place] [address] [phone] Left L34 decompression, redo left L45 decompression [[id number] (CPT??)] 11/22/2023 10:00 EDT Post-op Visit [facility] Neurosurgery - [address] [phone] Madiha Hurtado NP [address] [facility], [address] [place] [phone] Scheduled Procedures Name Priority Associated Diagnoses Date/Ti me LAMINECTOMY, SPINE, LUMBAR, 1 LEVEL, WITH FORAMINOTOMY OR FACETECTOMY Lumbar radiculopathy 10/22/2023 13:25 EDT LAMINECTOMY, SPINE, WITH FACETECTOMY AND FORAMINOTOMY, ADDITIONAL LEVEL FOLLOWING INITIAL LEVEL Lumbar radiculopathy 10/22/2023 13:25 EDT documented as of this encounter Visit Diagnoses Diagnosis Routine medical exam- Primary Routine general medical examination at a health care facility Lumbar radiculopathy Thoracic or lumbosacral neuritis or radiculitis, unspecified documented in this encounter Care Teams Inside Account Executive Relationship Specialty Start Date End Date Bri Nieto PA-C [address] [place] [phone] PCP - General Internal Medicine - Primary Care 10/16/19 09/15/21 documented as of this encounter
--- OUTSIDE RECORDS SUMMARY | 2023-10-19 15:35 | XMS_ITS | Encounter Summary ---
Author Organization [facility] Address [address] [place] [address] Care Team Providers Care Ship Runner Name Role Phone Bri Murphy PA-C Primary Care Provider [phone] Reason for Referral * Radiology Services (STAT) - Authorization Not Required Specialty Diagnoses / Procedures Referred By Contac t Referred To Contact Radiology Diagnoses Acute left-sided low back pain with left-sided sciatica Procedures MR LUMBAR SPINE WO Bri Mathew PA-C [address] [place] [phone] [facility] Referral ID Status Reason Start Date Expiration Date Visits Requested Visits Authorized [id number] Authorization Not Required 01/16/2021 1 1 Reason for Visit * Radiology Services (STAT) - Authorization Not Required Specialty Diagnoses / Procedures Referred By Contac t Referred To Contact Radiology Diagnoses Acute left-sided low back pain with left-sided sciatica Procedures MR LUMBAR SPINE WO Bri Mathew PA-C [address] [place] [phone] [facility] Referral ID Status Reason Start Date Expiration Date Visits Requested Visits Authorized [id number] Authorization Not Required 01/16/2021 1 1 Encounter Details Date Type Department Care Team (Latest Contact Info) Description 01/29/2021 6:03 EST - 01/29/2021 23:59 [facility] Hospital Encounter [facility] [address] [place] [address] Acute left-sided low back pain with left-sided sciatica Discharge Disposition: Home or Self Care Social [...] Master's degree (e.g., MA, MS, Joanne, MEd, CONFERENCE SERVICE COORDINATOR, LILA) 06/19/2020 Sex and Gender Information Value Date Recorded Sex Assigned at Female 10/08/2022 13:26 EDT Gender Identity Female 07/29/2021 16:35 EDT Sexual Orientation Straight 10/08/2022 13 :26 EDT documented as of this encounter Medications at Time of Discharge Medication Sig Dispensed Refills Start Date End Date levonorgestreL (MIRENA) 20 mcg/24 hours (8 yrs) 52 mg IUD 1 Each by intrauterine route Once. 2016 Multivitamins with Minerals tablet tablet Take 1 Tablet by mouth daily. riboflavin, vitamin B2, 400 mg tabletIndications:Sameer candie with aura and without status migrainosus, not intractable Take 1 Tab by mouth daily. 90 Tab 3 08/21/2020 09/02/2022 rimegepant 75 mg tablet,disintegrating Indications:Migraine with aura and without status migrainosus, not intractable Take 1 Tab by mouth daily as needed (headache). 10 Tab 3 08/21/2020 08/08/2021 sertraline (ZOLOFT) 100 mg tablet Take 1 Tablet by mouth daily. 90 Tablet 1 09/12/2020 08/26/2021 documented as of this encounter Discharge Disposition Disposition Code Departure Means Destination Home or Self Care documented in this encounter Plan of Treatment Upcoming Encounters Date Type Department Care Team (Late st Contact Info) Description 10/22/2023 13:25 EDT Hospital Encounter [facility] OR [address] [place] [address] [phone] Walker Pride MD [address] [place] [address] [phone] 10/22/2023 13:25 EDT - 10/22/2023 17:00 EDT Surgery [facility] OR [address] [place] [address] [phone] Walker Pride MD [address] [place] [address] [phone] Left L34 decompression, redo left L45 decompression [[id number] (CPT??)] 11/22/2023 10:00 EDT Post-op Visit [facility] Neurosurgery - [address] [phone] Madiha Hurtado NP [address] [place] [address] [phone] Scheduled Procedures Name Priority Associated Diagnoses Date/Ti me LAMINECTOMY, SPINE, LUMBAR, 1 LEVEL, WITH FORAMINOTOMY OR FACETECTOMY Lumbar radiculopathy 10/22/2023 13:25 EDT LAMINECTOMY, SPINE, WITH FACETECTOMY AND FORAMINOTOMY, ADDITIONAL LEVEL FOLLOWING INITIAL LEVEL Lumbar radiculopathy 10/22/2023 13:25 EDT documented as of this encounter Procedures Procedure Name Priority Date/Time Associated Diagnosis Comments MR LUMBAR SPINE WO CONTRAST STAT 01/29/2021 7:17 EST Acute left-sided low back pain with left-sided sciatica documented in this encounter Results * MR LUMBAR SPINE WO CONTRAST (01/29/2021 7:17 EST) Anatomical Region Laterality Modality Spine Magnetic Resonan ce 01/29/2021 10:4 0 EST Impressions 01/29/2021 10:40 EST L4-L5 posterolateral left sided focal disc bulge, likely impinging the left L5 nerve root. Correlate with left L5 radiculopathy. Narrative 01/29/2021 10:40 EST INDICATION: Back pain or radiculopathy, > 6 wks COMPARISON: None. TECHNIQUE: Noncontrast MRI scan of the lumbar spine was performed. Sagittal T1, T2, STIR, coronal fat-suppressed T2 and axial T1 and T2-weighted scans were obtained. FINDINGS: Lower thoracic cord is normal and the conus terminates at the superior endplate of L1. No fracture or suspicious bone lesion. Normal paraspinal soft tissues. Disc levels: L1-L2: The L1-L2 disc and facet joints are unremarkable. L2-L3: The L2-L3 disc and facet joints are unremarkable. L3-L4: The L3-L4 disc and facet joints are unremarkable. L4-L5: Left sided posterior lateral focal disc bulge abuts and displaces the left L5 nerve root. Bilateral facet hypertrophy and ligamentum flavum thickening is present. Mild spinal stenosis. L5-S1: The L5-S1 disc and facet joints are unremarkable. Procedure Note Percy Subramanian MD - 01/29/2021 INDICATION: Back pain or radiculopathy, > 6 wks COMPARISON: None. TECHNIQUE: Noncontrast MRI scan of the lumbar spine was performed.Sagittal T1, T2, STIR, coronal fat-suppressed T2 and axial T1 andT2-weighted scans were obtained. FINDINGS: Lower thoracic cord is normal and the conus terminates at the superiorendplate of L1. No fracture or suspicious bone lesion. Normal paraspinalsoft tissues. Disc levels: L1-L2: The L1-L2 disc and facet joints are unremarkable. L2-L3: The L2-L3 disc and facet joints are unremarkable. L3-L4: The L3-L4 disc and facet joints are unremarkable. L4-L5: Left sided posterior lateral focal disc bulge abuts and displacesthe left L5 nerve root. Bilateral facet hypertrophy and ligamentum flavumthickening is present. Mild spinal stenosis. L5-S1: The L5-S1 disc and facet joints are unremarkable. IMPRESSION L4-L5 posterolateral left sided focal disc bulge, likely impinging theleft L5 nerve root. Correlate with left L5 radiculopathy. Bri Murphy PA-C IMG MRI ORDERABLES documented in this encounter Visit Diagnoses Diagnosis Acute left-sided low back pain with left-sided sciatica Lumbar radiculopathy Thoracic or lumbosacral neuritis or radiculitis, unspecified documented in this encounter Care Teams Ship Runner Relationship Specialty Start Date End Date Bri Murphy PA-C [address] [place] [phone] PCP - General Internal Medicine - Primary Care 10/16/19 09/15/21 documented as of this encounter
--- OUTSIDE RECORDS SUMMARY | 2023-10-19 15:35 | XMS_ITS | Encounter Summary ---
Author Organization [facility] Address [address] [place] [address] Care Team Providers Care Sand Buffer Name Role Phone Bri Murphy PA-C Primary Care Provider [phone] Reason for Visit * Reason Comments Telemedicine Video Visit Obsessive Compulsive Disorder f/u Encounter Details Date Type Department Care Team (Late st Contact Info) Description 01/01/2021 16:15 EDT Telemedicine [facility] Adult Primary Care - [place] [address] [place], [place] [id number] Bri Murphy PA-C [address] [place] [address] Acute left-sided low back pain with left-sided sciatica (Primary Dx); Migraine with aura and without status migrainosus, not intractable; Mixed obsessional thoughts and acts Social History Tobacco Use Types Packs/Day Years [...] Master's degree (e.g., MA, MS, Joanne, MEd, JEWELRY POLISHER, LILA) 06/19/2020 Sex and Gender Information Value [...] - - Weight 65.8 kg (145 lb) 01/01/2021 1546 EDT Height - - Body Mass Index 24.13 09/09/2017 1431 EDT documented in this encounter Progress Notes * Bri Murphy PA-C - 01/01/2021 1615 EDT Subjective: Patient ID: Teri Toribio is an 30 y.o. female. Chief Complaint Patient presents with ??? Telemedicine Video Visit ??? Obsessive Compulsive Disorder f/u The concept of ???Telemedicine?? has been described to the patient. Patient has been informed of the anticipated benefits and possible risks. Patient understands the information provided regarding telemedicine, has had the opportunity to ask questions about this information, and all questions havebeen answered to patient???s satisfaction. Patient consents for the use of telemedicine in his/her medical care and authorizes the transmission of any relevant medical information to providers and their staff involved in patient???s medical or mental health care. TELEMEDICINE VIDEO VISIT Today's visit was provided through telemedicine video conferencing: The location of the patient : Home The location of the provider: Office The following staff and their role did participate in today's encounter visit: Bri Murphy PA-C Patient was unable to connect to the video. We spoke on the phone. This is a 3- month follow-up for OCD and migraines. She reports the sertraline 100 mg is working well for her. 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 She will be getting a new therapist through her school. She is utilizing the techniques that she has learned in the past and they are helping her at this time. She thinks the sertraline 100 mg is a good dose. She is taking the vitamin B2 400 mg daily. She did have a bad headache and used the Nurtec. She found it somewhat helpful but then her headache came back again so she took another dose. She called the office and she was educated to not take more than 1 dose in a 24-hour. She can use an analgesic such as naproxen or ibuprofen with it next time. She has not had any further headaches. She has been experiencing left low back pain and sciatica for the past 6 weeks. There is no trauma,injury or unusual event. The pain radiates down her left leg to just below her knee. It is worse with seated positions. She has been going to the chiropractor and performing stretches but it has not improved much at all. She has not been taking anything for it regularly. Patient Active Problem List Diagnosis ??? Contraceptive management ??? Constipation by delayed colonic transit ??? Obsessive-compulsive disorder ??? Migraine with aura and without status migrainosus, not intractable Outpatient Medications Marked as Taking for the 01/01/21 encounter (Telemedicine) with Caryn Murphy PA-C Medication Sig Dispense Refill ??? levonorgestrel (MIRENA) 20 mcg/24 hr (5 years) IUD 1 Each by intrauterine route once. 2017 ??? Multivitamins with Minerals tablet tablet Take 1 Tab by mouth daily. ??? riboflavin, vitamin B2, 400 mg tablet Take 1 Tab by mouth daily. 90 Tab 3 ??? rimegepant 75 mg tablet,disintegrating Take 1 Tab by mouth daily as needed (headache). 10 Tab 3 ??? sertraline (ZOLOFT) 100 mg tablet Take 1 Tablet by mouth daily. 90 Tablet 1 ROS - unremarkable except as noted in the HPI Objective: Wt 65.8 kg (145 lb) BMI 24.13 kg/m?? Physical Exam Assessment / Plan: Teri was seen today for telemedicine video visit and obsessive compulsive disorder. Diagnoses and all orders for this visit: Acute left-sided low back pain with left-sided sciatica I offered prednisone but she declined at this time. She will continue with the chiropractor and stretching exercises. She will contact the office if she does not improve. Migraine with aura and without status migrainosus, not intractable Continue vitamin B2 400 mg daily. In the future when she has a headache [facility] Follow-up 6 months. Mixed obsessional thoughts and acts Stable on current dose of sertraline. Follow-up 6 months. I spent a total of 15 minutes with Teri Toribio today and 15 minutes of that time was spent in counseling and coordination of care as described in the progress note. Bri Murphy PA-C 01/01/2021 17:14 Portions of this document have been prepared with speech recognition software or keyboard clinical data associate techniques. Minor irregularities or keyboarding misprints may be present. documented in this encounter Plan of Treatment Upcoming Encounters Date Type Department Care Team (Late st Contact Info) Description 10/22/2023 13:25 EDT Hospital Encounter [facility] OR [address] [place] [address] [phone] Walker Pride MD [address] [place] [address] [phone] 10/22/2023 13:25 EDT - 10/22/2023 17:00 EDT Surgery [facility] OR [address] [place] [address] [phone] Walker Pride MD [address] [place] [address] [phone] Left L34 decompression, redo left L45 decompression [28610 (CPT??)] 11/22/2023 10:00 EDT Post-op Visit [facility] Neurosurgery - [address] [phone] Madiha Hurtado NP [facility], [address] [place] [address] Scheduled Procedures Name Priority Associated Diagnoses Date/Ti me LAMINECTOMY, SPINE, LUMBAR, 1 LEVEL, WITH FORAMINOTOMY OR FACETECTOMY Lumbar radiculopathy 10/22/2023 13:25 EDT LAMINECTOMY, SPINE, WITH FACETECTOMY AND FORAMINOTOMY, ADDITIONAL LEVEL FOLLOWING INITIAL LEVEL Lumbar radiculopathy 10/22/2023 13:25 EDT documented as of this encounter Visit Diagnoses Diagnosis Acute left-sided low back pain with left-sided sciatica- Primary Migraine with aura and without status migrainosus, not intractable Migraine with aura, without mention of intractable migraine without mention of status migrainosus Mixed obsessional thoughts and acts Lumbar radiculopathy Thoracic or lumbosacral neuritis or radiculitis, unspecified documented in this encounter Care Teams Sand Buffer Relationship Specialty Start Date End Date Bri Murphy PA-C [address] [place] [phone] PCP - General Internal Medicine - Primary Care 10/16/19 09/15/21 documented as of this encounter
--- OUTSIDE RECORDS SUMMARY | 2023-10-19 15:35 | XMS_ITS | Encounter Summary ---
Author Organization [facility] Address [address] [place] [address] Care Team Providers Care Manufacturing Process Technician Name Role Phone Bri Murphy PA-C Primary Care Provider Reason for Visit * Reason Comments Annual Exam bhs pos, audit 10, a nd sdoh neg Immunizations pt would like tdap Encounter Details Date Type Department Care Team (Late st Contact Info) Description 07/02/2020 16:00 EDT Office Visit [facility] Adult Primary Care - [place] [address] [place] [address] Bri Murphy PA-C [address] [place] [phone] Preventative health care (Primary Dx); Cervical cancer screening; Mixed obsessional thoughts and acts Social History [...] slept in a prison (including now)? No 06/19/2020 Interpersonal Safety Answer Date Record ed Physically Hurt Never 10/27/2019 Verbally Threaten Never 10/27/2019 Education Answer Date Recorded What is the highest level of school you have completed or the highest degree you have received? Master's degree (e.g., MA, MS, Joanne, MEd, DRILLING MANAGER, LILA) 06/19/2020 Sex and Gender Information Value Date Recorded Sex Assigned at Female 10/08/2022 13:26 EDT Gender Identity Female 07/29/2021 16:35 EDT Sexual Orientation Straight 10/08/2022 13 :26 EDT documented as of this encounter Last Filed Vital Signs Vital Sign Reading Time Taken Comments Blood Pressure 110/80 07/02/2020 1553 EDT Pulse 60 07/02/2020 1553 EDT Temperature 36.2 ??C (97.1 ??F) 07/02/2020 1553 EDT Respiratory Rate 14 07/02/2020 1553 EDT Oxygen Saturation - - Inhaled Oxygen Concentration - - Weight 68.9 kg (151 lb 12.8 oz) 07/02/2020 1553 EDT Height - - Body Mass Index 25.26 09/09/2017 1431 EDT documented in this encounter Ordered Prescriptions Prescription Sig Dispensed Refills Start Date End Da te sertraline (ZOLOFT) 100 mg tablet Take 1 Tab by mouth daily. 90 Tab 1 07/02/2020 09/12/2020 documented in this encounter Progress Notes * Bri Murphy PA-C - 07/02/2020 1600 EDT Patient ID: Teri Toribio is a 29 y.o. y.o. 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 She ismarried and lives with her . Current exercise: run and walk daily and yoga 3x per week. Current diet: healthy diet in general. Last dental appointment: every 6 months. Last eye exam: 2020. Last PAP: 05/03/2017. Subjective: HPI: Teri has been taking sertraline for OCD. It was increased in December to 75 mg and then recently to100 mg. It is working well now. She is not having any side effects from it. Patient Active Problem List Diagnosis Date Noted ??? Obsessive-compulsive disorder 09/08/2012 ??? Constipation by [...] fibrillation Maternal Grandmother ??? Tuberculosis Maternal Grandfather Current Outpatient Medications Medication ??? levonorgestrel (MIRENA) 20 mcg/24 hr (5 years) IUD ??? Multivitamins with Minerals tablet tablet ??? sertraline (ZOLOFT) 100 mg tablet No current facility-administered medications for this visit. No Known Allergies Social History Tobacco Use ??? Smoking status: Never Smoker ??? Smokeless tobacco: Never Used Substance Use Topics ??? Alcohol use: Yes Comment: socially ??? Drug use: No Review of Systems: System Neg Pos Comments Constitutional x Eyes x ENT x Cardiovascular x Pulmonary x Gastrointestinal x Genitourinary x Musculoskeletal x Skin/breast x Neurological x Psychiatric x Endocrine x Hematologic Lymphatic x Allergic Immunologic x Behavioral Health Screen PHQ-2 Little interest or pleasure in doing things?: Not at all Feeling down, depressed, or hopeless?: Several days PHQ-2 SUBTOTAL: 1 SASQ How many times in the past year have you had 4 or more drinks in a single day?: More than once AUDIT-10 How often do you have a drink containing alcohol?: 2-3 times/week How many drinks containing alcohol do you have on a typical day when you are drinking?: 1 or 2 How often do you have six or more drinks on one occasion?: less than monthly How often during the last year have you found that you were not able to stop drinking once you had started?: never How often during the last year have you failed to do what was normally expected of you because of drinking?: Never How often during the last year have you needed a first drink in the morning to get yourself going after a heavy drinking session?: never How often during the last year have you had a feeling of guilt or remorse after drinking?: never How often during the last year have you been unable to remember what happened the night before because of your drinking?: never Have you or someone else been injured because of your drinking?: No Has a relative, friend, doctor, or other health care worker been concerned about your drinking or suggested you cut down?: No AUDIT-10 TOTAL: 4 AUDIT Interpretation: Low-risk alcohol use. AUDIT Suggested Action: No further Action Prescription Misuse How many times in the past year have you used an illegal drug or used a prescription medication fornon-medical reasons?: Never Social Determinants of Health(SDOH): Respondent: Self Within the past 12 months, you worried that your food would run out before you got money to buy more: Never true Within the past 12 months, the food you bought just didn???t last and you didn???t have money to get more: Never true Hunger Vital Sign Result: Negative Screen for Food Insecurity Action taken as a result of food insecurity screen: What is your housing situation today?: I have housing Think about the place you live. Do you have problems with any of the following? (check all that apply): None of the above In the past 12 months has the electric, gas, oil, or water company threatened to shut off services in your home?: No In the past 12 months, has lack of transportation kept you from medical appointments, meetings, work or from getting things needed for daily living? (Check all that apply): No How often does anyone, including family, physically hurt you?: Never How often does anyone, including family, insult or talk down to you?: Never How often does anyone, including family, threaten you with harm?: Never How often does anyone, including family, scream or curse at you?: Never Objective: Physical Examination: BP 110/80 (BP Cuff Location: Right arm, BP Patient Position: Sitting, BP Cuff Sizes: Adult, regular) Pulse 60 Temp 36.2 ??C (97.1 ??F) (Temporal) Resp 14 Wt 68.9 kg (151 lb 12.8 oz) BMI 25.26 kg/m?? General: Alert, cooperative, no distress. Head: Normocephalic, without obvious abnormality. Eyes: Conjunctivae clear. PERRL, EOMs intact. Ears: Normal TMs and external ear canals both ears. Hearing grossly nl. Nose: Nares normal. Septum midline. Mucosa normal. No drainage or sinus tenderness. Throat: Lips, mucosa, and tongue normal. Teeth and gums normal. Neck: Supple, symmetrical, trachea midline, no adenopathy, thyroid: no enlargement, tenderness or nodules, no carotid bruit and no JVD. Back: Symmetric, no curvature. No spinal or CVA tenderness. Lungs: Clear to auscultation bilaterally. Chest wall: No tenderness or deformity. Heart: Regular rate and rhythm, S1, S2 normal, no systolic murmur, click, rub or gallop. Breast Exam: No tenderness, masses, or nipple abnormality. Abdomen: Soft, non-tender. Bowel sounds normal. No masses, No organomegaly, no bruits or evidence for aneurysm. Genitalia: Normal external genital features without lesions. Urethra/meatus - normal. Bladder - no palpable abnormality. Vagina - normal without atrophic changes. Cervix - normal, no cervical motion tenderness. Thin-prep Pap test taken from endocervix. IUD string in place. No adenexal masses. Uterus - WNL. . No unusual discharge or tenderness. Perineum normal, no lesions present. Anorectal: External hemorrhoids are not present Extremities: Extremities atraumatic, no clubbing cyanosis or edema. Musculoskeletal: No joint swelling, effusion or redness. Pulses: 2+ and symmetric all extremities. Skin: Skin color, texture, turgor normal. No rashes or suspicious lesions. Lymph nodes: Cervical, supraclavicular, axillary and inguinal nodes normal. Neurologic: CNII-XII intact. Normal strength, sensation and reflexes throughout. LABS: Results for orders placed or performed in visit on 07/02/20 COMPREHENSIVE METABOLIC PANEL (CMP) Result Value Ref Range GFR, Calculated, External >60 Glucose, Serum, External 80 Albumin, External 4.1 Total Alkaline Phosphatase, External 54 ALT, External 23 AST, External 15 BUN, External 9 Calculated Calcium, External 8.4 Calcium, External 8.5 Chloride, External 102 CO2, External 27.9 Creatinine, External 0.56 Fasting?, External Potassium, External 4.6 Sodium, External 139 Total Protein, External 7.0 Bilirubin, Total, External 0.40 LIPID PROFILE (INCLUDES CHOLESTEROL, TRIGLYCERIDES, HDL, LDL) Result Value Ref Range Cholesterol, External 215 Triglycerides, External 65 HDL, External 104 LDL, External 98 Chol/HDL Ratio, External 2.06 Fasting?, External Assessment: Health Maintenance activities currently due: Pap and Tdap. Plan: Recommendations: Health Maintenance Topic Date Due ??? Advance Directive Never done ??? Pertussis (Adult) Immunization Never done ??? Tetanus (Adult) Immunization 05/15/2013 ??? Preventive Care Visit 09/08/2014 ??? Cervical Cancer Screening 05/03/2020 ??? Social Determinants Of Health (SDOH) 07/02/2021 ??? Behavioral Health Screen 07/02/2021 ??? Influenza Immunization (Adult) Completed ??? HIV Screening Discontinued - Regular eye exams to check visual acuity, screen for glaucoma and other eye problems. - Avoid smoking or other tobacco products such as chewing tobacco and snuff. - Alcohol to be used only in moderation, preferably not on a daily basis. - Wearing seat belts. This has been shown in many studies to prevent injuries and fatalities in auto accidents. This is not a minor issue, as trauma is the leading cause of and disability in people under the age of 40. - Wearing helmets. Helmet use when riding a bike, skiing , snowmobiling, etc. is critical to preventing head injury. - Healthy eating. This means eating a diet that is low in fat and junk food, high in fiber, fruits and vegetables. Women should pay special attention to calcium and vitamin D to prevent osteoporosis. - Regular exercise. As little as thirty minutes of aerobic exercise three times per week helps prevent heart disease, hypertension, osteoporosis as well as improving endurance and energy level. Dailyaerobic exercise is best! - Safe sex. Sexually transmitted diseases, hepatitis and HIV infection are all, to a large extent preventable. - Regular dental visits, usually twice/year. - Minimize suntanning and use sun block when in the sun. Avoid tanning beds. Sun exposure is directly linked not only to skin cancer but also to premature wrinkling of the skin. Other Problems Dealt With During This Exam: Teri was seen today for annual exam and immunizations. Diagnoses and all orders for this visit: Preventative health care Will hold off on the Tdap as she is having the COVID vaccine next week. Cervical cancer screening - PAP TEST Mixed obsessional thoughts and acts Continue current dose of sertraline. Follow up in 6 months or sooner if needed. - sertraline (ZOLOFT) 100 mg tablet; Take 1 Tab by mouth daily. Portions of this document have been prepared with speech recognition software or keyboard data entry coordinator techniques. Minor irregularities or keyboarding misprints may be present. documented in this encounter Plan of Treatment Upcoming Encounters Date Type Department Care Team (Late st Contact Info) Description 10/22/2023 13:[address] [facility] OR [address] [place] [address] [phone] Walker Pride MD [address] [place] [address] [phone] 10/22/2023 13:25 EDT - 10/22/2023 17:[address] [facility] OR [address] [place] [address] [phone] Walker Pride MD [address] [place] [address] [phone] Left L34 decompression, redo left L45 decompression [45999 (CPT??)] 11/22/2023 10:00 EDT Post-op Visit [facility] Neurosurgery - [address] [phone] Madiha Hurtado NP [address] [place] [address] [phone] Scheduled Procedures Name Priority Associated Diagnoses Date/Ti me LAMINECTOMY, SPINE, LUMBAR, 1 LEVEL, WITH FORAMINOTOMY OR FACETECTOMY Lumbar radiculopathy 10/22/2023 13:25 EDT LAMINECTOMY, SPINE, WITH FACETECTOMY AND FORAMINOTOMY, ADDITIONAL LEVEL FOLLOWING INITIAL LEVEL Lumbar radiculopathy 10/22/2023 13:25 EDT documented as of this encounter Procedures Procedure Name Priority Date/Time Associated Diagnosis Comments PAP TEST Routine 07/02/2020 17:13 EDT Cervical cancer screening HPV DNA DETECTION WITH GENOTYPING, PCR Today 07/02/2020 17:13 EDT Cervical cancer screening documented in this encounter Results * HUMAN PAPILLOMAVIRUS (HPV) DETECTION-HIGH RISK TYPES (07/02/2020 17:13 EDT) HPV other High Risk types, PCR Negative Negative 07/08/2020 14:50 EDT [facility] Comment:No E6 or E7 mRNA is detected from HPV types 16,18,31,33,35,39,45,51,52,56,58,59,66, and 68 by sales service coordinator mediated amplification. Papanicolaou smear specimen (specimen) CERVIX UTERI STRUCTURE / Unknown 07/02/2020 17:13 EDT 07/05/2020 10:28 EDT Bri Murphy PA-C MICROBIOLOGY - GENER AL ORDERABLES [facility] [address] [place] [address] * PAP TEST (07/02/2020 17:13 EDT) Specimens A. Cervix and/or Endocervix , ThinPrep Imaging System with Manual Evaluation 07/08/2020 14:50 EDT [facility] Specimen Adequacy Satisfactory for Evaluation - transformation zone component present 07/08/2020 14:50 EDT [facility] General Categorization Negative for intraepithelial lesion or malignancy 07/08/2020 14:50 EDT [facility] Descriptive Diagnosis Fungal organisms present morphologically consistent with Ryann species. 07/08/2020 14:50 EDT [facility] Attestation . 07/08/2020 14:50 EDT [facility] at 1450 Clinical History cervical ca screening 07/08/2020 14:50 EDT [facility] HPV The result for the Human Papillomavirus (HPV) Detection-High Risk Types is Negative. No E6 or E7 mRNA is detected from HPV types 16,18,31,33,35,39 ,45,51,52,56,58,5 9,66, and 68 by sales service coordinator mediated amplification.Nicole ting was performed on specimen [id number] and was resulted on 07/08/2020 1427 EDT by KISHOR, LAB INSTRUMENT RESULTS IN 07/08/2020 14:50 EDT [facility] Performing Lab [facility] 07/08/2020 14:50 EDT [facility] Scanned Images 07/08/2020 14:50 EDT [facility] Papanicolaou smear specimen (specimen) CERVIX UTERI STRUCTURE / Unknown 07/02/2020 17:13 EDT 07/02/2020 17:13 EDT Bri Murphy PA-C PATHOLOGY ORDERABLES [facility] [address] [place] [address] documented in this encounter Visit Diagnoses Diagnosis Preventative health care- Primary Routine general medical examination at a health care facility Cervical cancer screening Screening for malignant neoplasm of the cervix Mixed obsessional thoughts and acts Lumbar radiculopathy Thoracic or lumbosacral neuritis or radiculitis, unspecified documented in this encounter Discontinued Medications Medication Sig Discontinue Reason Start Date End Da te sertraline (ZOLOFT) 100 mg tablet Take 1 Tab by mouth daily. Reorder 05/15/2020 07/02/2020 documented as of this encounter Care Teams Manufacturing Process Technician Relationship Specialty Start Date End Date Bri Murphy PA-C [address] [place] [phone] PCP - General Internal Medicine - Primary Care 10/16/19 09/15/21 documented as of this encounter
--- OUTSIDE RECORDS SUMMARY | 2023-10-19 15:35 | XMS_ITS | Encounter Summary ---
Author Organization [facility] Address [address] [place] [address] Care Team Providers Care Pot Feeder Name Role Phone Bri Murphy PA-C Primary Care Provider [phone] Reason for Visit * Reason Onset Date Comments Appointment Related 02/10/2020 Encounter Details Date Type Department Care Team (Late st Contact Info) Description 02/10/2020 Telephone [facility] Adult Primary Care - [place] [address] [place] [address] Bri Murphy PA-C [id number] [facility] [address] [place] [phone] Appointment Related Social History Tobacco Use Types Packs/Day Years Used Date Smoking Tobacco: Never Smokeless Tobacco: Never Alcohol Use Standard Drinks/Week Comments No 0 (1 standard drink = 0.6 oz pur e alcohol) PHQ-2 Answer Date Recorded PHQ-2 Score 3 10/27/2019 Hunger Vital Sign Answer Date Recorded Within the past 12 months, y ou worried that your food would run out before you got the money to buy more. Never true 10/27/19 20 Within the past 12 months, t he food you bought just didn't last and you didn't have money to get more. Never true 10/27/2019 Interpersonal Safety Answer Date Record ed Physically Hurt Never 10/27/2019 Verbally Threaten Never 10/27/2019 Sex and Gender Information Value Date Recorded Sex Assigned at Female 10/08/2022 13:26 EDT Gender Identity Female 07/29/2021 16:35 EDT Sexual Orientation Straight 10/08/2022 13 :26 EDT documented as of this encounter Miscellaneous Notes * Telephone Encounter - SethGudelia - 02/10/2020 1107 EST LM to schedule 2mo f/u video for OCD with Bri Murphy from 01.11.20 appt. documented in this encounter Plan of Treatment Upcoming Encounters Date Type Department Care Team (Late st Contact Info) Description 10/22/2023 13:25 EDT Hospital Encounter [facility] OR [address] [place] [address] [phone] [place] Pride MD [address] [place] [phone] 10/22/2023 13:25 EDT - 10/22/2023 17:00 EDT Surgery [facility] OR [address] [place] [address] [phone] [place] Pride MD [address] [place] [address] [phone] Left L34 decompression, redo left L45 decompression [[id number] (CPT??)] 11/22/2023 10:00 EDT Post-op Visit [facility] Neurosurgery - [address] [phone] Madiha Hurtado NP [address] [place] [address] [phone] Scheduled Procedures Name Priority Associated Diagnoses Date/Ti me LAMINECTOMY, SPINE, LUMBAR, 1 LEVEL, WITH FORAMINOTOMY OR FACETECTOMY Lumbar radiculopathy 10/22/2023 13:25 EDT LAMINECTOMY, SPINE, WITH FACETECTOMY AND FORAMINOTOMY, ADDITIONAL LEVEL FOLLOWING INITIAL LEVEL Lumbar radiculopathy 10/22/2023 13:25 EDT documented as of this encounter Visit Diagnoses Not on filedocumented in this encounter Care Teams Pot Feeder Relationship Specialty Start Date End Date Bri Murphy PA-C [id number] [facility] [address] [place] [phone] PCP - General Internal Medicine - Primary Care 10/16/19 09/15/21 documented as of this encounter
--- OUTSIDE RECORDS SUMMARY | 2023-10-19 15:35 | XMS_ITS | Encounter Summary ---
Author Organization [facility] Address [address] [place] [address] Care Team Providers Care Gas Welding Equipment Mechanic Name Role Phone Bri Murphy PA-C Primary Care Provider [phone] Encounter Details Date Type Department Care Team (Latest Contact Info) Description 07/29/2021 Travel Social History Tobacco Use Types Packs/Day [...] slept in a usp (including now)? No 06/19/2020 Interpersonal Safety Answer Date Record ed Physically Hurt Never 10/27/2019 Verbally Threaten Never 10/27/2019 Education Answer Date Recorded What is the highest level of school you have completed or the highest degree you have received? Master's degree (e.g., MA, MS, Joanne, MEd, FRONT OFFICE ASSISTANT, LILA) 06/19/2020 Sex and Gender Information [...] 15:24 EDT documented as of this encounter Plan of Treatment Upcoming Encounters Date Type Department Care Team (Late st Contact Info) Description 10/22/2023 13:25 EDT Hospital Encounter [facility] OR [address] [place] [address] [phone] [place] Pride MD [address] [place] [phone] 10/22/2023 13:25 EDT - 10/22/2023 17:00 EDT Surgery [facility] OR [address] [place] [address] [phone] [place] Pride MD [address] [place] [address] [phone] Left L34 decompression, redo left L45 decompression [[id number] (CPT??)] 11/22/2023 10:00 EDT Post-op Visit [facility] Neurosurgery - [address] [phone] Madiha Hurtado NP [address] [place] [phone] Scheduled Procedures Name Priority Associated Diagnoses Date/Ti me LAMINECTOMY, SPINE, LUMBAR, 1 LEVEL, WITH FORAMINOTOMY OR FACETECTOMY Lumbar radiculopathy 10/22/2023 13:25 EDT LAMINECTOMY, SPINE, WITH FACETECTOMY AND FORAMINOTOMY, ADDITIONAL LEVEL FOLLOWING INITIAL LEVEL Lumbar radiculopathy 10/22/2023 13:25 EDT documented as of this encounter Visit Diagnoses Not on filedocumented in this encounter Care Teams Gas Welding Equipment Mechanic Relationship Specialty Start Date End Date Bri Murphy PA-C [id number] [facility] [address] [place] [phone] PCP - General Internal Medicine - Primary Care 10/16/19 09/15/21 documented as of this encounter
--- OUTSIDE RECORDS SUMMARY | 2023-10-19 15:35 | XMS_ITS | Encounter Summary ---
Author Organization [facility] Address [address] [place] [address] Care Team Providers Care Lifter/Driver Name Role Phone Bri Murphy PA-C Primary Care Provider [phone] Reason for Visit * Reason Onset Date Comments Appointment Related 07/08/2020 Encounter Details Date Type Department Care Team (Late st Contact Info) Description 07/08/2020 Telephone [facility] Adult Primary Care - [place] [address] [place], [place] [phone] Bri Murphy PA-C [id number] [facility] [address] [place] [phone] Appointment Related Social History Tobacco Use [...] slept in a jail (including now)? No 06/19/2020 Interpersonal Safety Answer Date Record ed Physically Hurt Never 10/27/2019 Verbally Threaten Never 10/27/2019 Education Answer Date Recorded What is the highest level of school you have completed or the highest degree you have received? Master's degree (e.g., MA, MS, Joanne, MEd, [employer], LILA) 06/19/2020 Sex and Gender Information Value Date Recorded Sex Assigned at Female 10/08/2022 13:26 EDT Gender Identity Female 07/29/2021 16:35 EDT Sexual Orientation Straight 10/08/2022 13 :26 EDT documented as of this encounter Miscellaneous Notes * Telephone Encounter - Sharri Ohara - 07/08/2020 1139 EDT Left patient message to call and schedule 6 month f/u with Bri. documented in this encounter Plan of Treatment Upcoming Encounters Date Type Department Care Team (Late st Contact Info) Description 10/22/2023 13:25 EDT Hospital Encounter [facility] OR [address] [place] [address] [phone] [place] Pride MD [address] [place] [phone] 10/22/2023 13:25 EDT - 10/22/2023 17:00 EDT Surgery [address] [phone] [place] Pride MD [address] [place] [phone] Left L34 decompression, redo left L45 decompression [[id number] (CPT??)] 11/22/2023 10:00 EDT Post-op Visit [facility] Neurosurgery - [address] [address] Madiha Hurtado NP [address] [place] [phone] Scheduled Procedures Name Priority Associated Diagnoses Date/Ti me LAMINECTOMY, SPINE, LUMBAR, 1 LEVEL, WITH FORAMINOTOMY OR FACETECTOMY Lumbar radiculopathy 10/22/2023 13:25 EDT LAMINECTOMY, SPINE, WITH FACETECTOMY AND FORAMINOTOMY, ADDITIONAL LEVEL FOLLOWING INITIAL LEVEL Lumbar radiculopathy 10/22/2023 13:25 EDT documented as of this encounter Visit Diagnoses Not on filedocumented in this encounter Care Teams Lifter/Driver Relationship Specialty Start Date End Date Bri Murphy PA-C [address] [place] [phone] PCP - General Internal Medicine - Primary Care 10/16/19 09/15/21 documented as of this encounter
--- OUTSIDE RECORDS SUMMARY | 2023-10-19 15:35 | XMS_ITS | Encounter Summary ---
Author Organization [facility] Address [address] [place] [address] Care Team Providers Care Material Clerk Name Role Phone Bri Murphy PA-C Primary Care Provider [phone] Encounter Details Date Type Department Care Team (Late st Contact Info) Description 07/01/2020 Results Only [facility] Child Psychiatry - [address] [address] Lety Murphy MD [address] [place] [address], [address] [place] [phone] Social History Tobacco Use Types Packs/Day Years [...] Master's degree (e.g., MA, MS, Joanne, MEd, ACADEMIC ADVISING DIRECTOR, LILA) 06/19/2020 Sex and Gender Information Value Date Recorded Sex Assigned at Female 10/08/2022 13:26 EDT Gender Identity Female 07/29/2021 16:35 EDT Sexual Orientation Straight 10/08/2022 13 :26 EDT documented as of this encounter Plan of Treatment Upcoming Encounters Date Type Department Care Team (Late st Contact Info) Description 10/22/2023 13:25 EDT Hospital Encounter [facility] OR [address] [place] [address] [phone] [place] Pride MD [address] [place] [address] [address] [place] [phone] 10/22/2023 13:25 EDT - 10/22/2023 17:00 EDT Surgery [facility] OR [address] [place] [address] [phone] [place] Pride MD [address] [place] [address] [address] [place] [phone] Left L34 decompression, redo left L45 decompression [[id number] (CPT??)] 11/22/2023 10:00 EDT Post-op Visit [facility] Neurosurgery - [address] [phone] Madiha Hurtado NP [address] [place] [address] [address] [place] [phone] Scheduled Procedures Name Priority Associated Diagnoses Date/Ti me LAMINECTOMY, SPINE, LUMBAR, 1 LEVEL, WITH FORAMINOTOMY OR FACETECTOMY Lumbar radiculopathy 10/22/2023 13:25 EDT LAMINECTOMY, SPINE, WITH FACETECTOMY AND FORAMINOTOMY, ADDITIONAL LEVEL FOLLOWING INITIAL LEVEL Lumbar radiculopathy 10/22/2023 13:25 EDT documented as of this encounter Procedures Procedure Name Priority Date/Time Associated Diagnosis Comments LIPID PROFILE (INCLUDES CHOLESTEROL, TRIGLYCERIDES, HDL, LDL) Routine 07/01/2020 11:03 EDT COMPREHENSIVE METABOLIC PANEL (CMP) Routine 07/01/2020 11:03 EDT documented in this encounter Results * (ABNORMAL) LIPID PROFILE (INCLUDES CHOLESTEROL, TRIGLYCERIDES, HDL, LDL) (07/01/2020 11:03 EDT) Triglyceride 65 0 - 150 mg/dL 07/01/2020 12:27 [facility] Cholesterol 215(H) 0 - 200 mg/dL 07/01/2020 12:27 [facility] Comment: INTERPRETATION (NCEP GUIDELINES) Desirable: ? <200 mg/dL Borderline High: ??200-239 High: ? =/> 240 HDL 104 >/= 40 mg/dL 07/01/2020 12:27 [facility] Comment: INTERPRETATION (NCEP GUIDELINES) Low: ?<40 mg/dL Normal: ? 40-60 mg/dL Desirable: ??=/>60 mg/dL LDL, Calculated 98 0 - 129 mg/dL 07/01/2020 12:27 [facility] Comment: INTERPRETATION (NCEP GUIDELINES) Optimal: ?<100 mg/dL Low Risk: ?100-129 mg/dL Borderline High: 130-159 mg/dL High: ?160-189 mg/dL Very High: ? >/= 190 mg/dL Chol/HDL Ratio 2.06 07/01/2020 12:27 [facility] Non HDL Cholesterol 111 <130 mg/dl 07/01/2020 12:27 [facility] Comment: NCEP cutpoints for non-HDL cholesterol were set to be 30 mg/dL above the LDL-cholesterol cutpoints based on an assumed triglyceride level of 150 mg/dL. Desirable: ??100-129 mg/dl Borderline: 130-159 mg/dl High: ? 160-189 mg/dl Very High: ??>/= 190 mg/dl 07/01/2020 11:0 3 EDT 07/01/2020 11:51 EDT Narrative [facility] - 07/01/2020 12:30 EDT Y Y Ltey Murphy MD CHEMISTRY & BLOOD GAS ORDERABLES [facility] [address] [place] [address] * (ABNORMAL) COMPREHENSIVE METABOLIC PANEL (CMP) (07/01/2020 11:03 EDT) Sodium 139 136 - 145 mEq/L 07/01/2020 12:27 [facility] Potassium 4.6 3.5 - 5.1 mEq/L 07/01/2020 12:27 [facility] Chloride 102 96 - 107 mEq/L 07/01/2020 12:27 [facility] CO2 Total 27.9 21 - 32 mEq/L 07/01/2020 12:27 [facility] Anion Gap 9.1 mEq/L 07/01/2020 12:27 [facility] BUN 9 7 - 25 mg/dl 07/01/2020 12:27 [facility] Creatinine 0.56 0.55 - 1.02 mg/dl 07/01/2020 12:27 [facility] Estimated GFR >60 >60 07/01/2020 12:27 [facility] Comment: EGFR UNITS: mL/min/1.73 m 2 CKD-EPI Equation used to calculate. Glucose 80 74 - 106 mg/dl 07/01/2020 12:27 [facility] Calcium 8.5 8.5 - 10.1 mg/dl 07/01/2020 12:27 [facility] CALCIUM,CORRECTE D - PMC 8.4(L) 8.5 - 10.5 mg/dl 07/01/2020 12:27 [facility] BILIRUBIN - PMC 0.40 0.00 - 1.00 mg/dl 07/01/2020 12:27 [facility] AST 15 15 - 37 U/L 07/01/2020 12:27 [facility] ALT 23 14 - 59 U/L 07/01/2020 12:27 [facility] Alkaline Phosphatase 54 46 - 116 U/L 07/01/2020 12:27 [facility] Total Protein 7.0 6.4 - 8.2 g/dl 07/01/2020 12:27 [facility] Albumin 4.1 3.4 - 5.0 g/dl 07/01/2020 12:27 [facility] GLOBULIN - PMC 2.9 g/dl 07/01/2020 12:27 [facility] ALBUMIN/GLOBULIN RATIO - PMC 1.4 07/01/2020 12:27 [facility] 07/01/2020 11:0 3 EDT 07/01/2020 11:51 EDT Narrative [facility] - 07/01/2020 12:30 EDT Y Y Lety Murphy MD CHEMISTRY & BLOOD GAS ORDERABLES Performing Organization Address City/State/[facility] Co de Phone Number [facility] [address] [place] [address] documented in this encounter Visit Diagnoses Not on filedocumented in this encounter Care Teams Material Clerk Relationship Specialty Start Date End Date Bri Murphy PA-C [id number] [place] [phone] PCP - General Internal Medicine - Primary Care 10/16/19 09/15/21 documented as of this encounter
--- OUTSIDE RECORDS SUMMARY | 2023-10-19 15:35 | XMS_ITS | Encounter Summary ---
Author Organization [facility] Address [address] [place] [address] Care Team Providers Care Shingle Grader Name Role Phone Bri Murphy PA-C Primary Care Provider [phone] Reason for Visit * Reason Comments Telemedicine Video Visit Obsessive Compulsive Disorder Contraception Encounter Details Date Type Department Care Team (Latest Contact Info) Description 10/27/2019 15:45 EDT Telemedicine [facility] Adult Primary Care - [place] [address] [place] [address] Bri Murphy PA-C [address] [place] [phone] Mixed obsessional thoughts and acts (Primary Dx); Encounter for management of intrauterine contraceptive device (IUD), unspecified IUD management type Social History Tobacco Use Types Packs/Day Years [...] Start Date End Da te sertraline (ZOLOFT) 25 mg tablet Take 1 Tab by mouth daily. 30 Tab 1 10/27/2019 01/05/2020 documented in this encounter Progress Notes * Bri Murphy PA-C - 10/27/2019 1545 EDT Subjective: Patient ID: Teri Toribio is an 29 y.o. female. Chief Complaint Patient presents with ??? Telemedicine Video Visit ??? Obsessive Compulsive Disorder ??? Contraception The concept of ???Telemedicine?? has been described [...] role did participate in today's encounter visit: DAMEON Lorenzo has a history of OCD. She started counseling again in January and then recently started witha new counselor about 6 to 8 weeks ago. She reports the new counselor is working well for her and she is working on cognitive behavioral techniques to help with her obsessions and compulsive acts. However she continues to have a lot of intrusive thoughts and will ruminate about things to the point where it is causing her significant anxiety. She has also been feeling more down than usual. Lately she is being woken up at night because of the anxiety. She denies any suicidal ideations or feeling hopeless. Her counselor recommended she speak with me about medication. She feels that it would be he lpful at this time. Teri was prescribed medication back in 2010 but reports never taking it consistently as she was dealing with an eating disorder at that time. She also had questions about her IUD. It was placed in [place] back in 2017. She has the Mirena IUD. She was not sure if it was a 3 or 5-year one. Behavioral Health Screen PHQ-2 Little interest or pleasure in doing things?: Several days Feeling down, depressed, or hopeless?: More than half the days PHQ-2 SUBTOTAL: 3 PHQ-9 Trouble falling or staying asleep, or sleeping too much?: Several days Feeling tired or having little energy?: Several days Poor appetite or overeating?: Not at all Feeling bad about yourself - or that you are a failure or have let yourself or your family down?: Several days Trouble concentrating on things, such as reading the newspaper or watching TV?: Several days Moving or speaking so slowly that other people have noticed? Or the opposite - being so fidgety or restless that you have been moving around a lot more than usual?: Not at all Thoughts that you would be better off , or of hurting yourself in some way?: Not at all PHQ-9 TOTAL: 7 PHQ-9 Score Details: Mild Depression SASQ How many times in the past year have you had 4 or more drinks in a single day?: Never Prescription Misuse How many times in the [...] family, scream or curse at you?: Never Patient Active Problem List Diagnosis ??? Contraceptive management ??? Constipation by delayed colonic transit ??? Obsessive-compulsive disorder Outpatient Medications Marked as Taking for the 10/27/19 encounter (Telemedicine) with Bri Murphy PA-C Medication Sig Dispense Refill ??? levonorgestrel (MIRENA) 20 mcg/24 hr (5 years) IUD 1 Each by intrauterine route once. 2017 ??? Multivitamins with Minerals tablet tablet Take 1 Tab by mouth daily. ROS - unremarkable except as noted in the HPI Objective: There were no vitals taken for this visit. Physical Exam Constitutional: General: She is not in acute distress. Appearance: She is well-developed and well-nourished. Psychiatric: Mood and Affect: Mood and affect normal. Behavior: Behavior normal. Thought Content: Thought content normal. Judgment: Judgment normal. Assessment / Plan: Teri was seen today for telemedicine video visit, obsessive compulsive disorder and contraception. Diagnoses and all orders for this visit: Mixed obsessional thoughts and acts We had a long discussion about medication. Believe she would benefit from sertraline. Side effects, risks and benefits of the medication were discussed in detail. Continue counseling and cognitive behavioral techniques. Follow-up in 1 month or sooner if needed. - sertraline (ZOLOFT) 25 mg tablet; Take 1 Tab by mouth daily. Encounter for management of intrauterine contraceptive device (IUD), unspecified IUD management type Her IUD is good until 2021. I spent a total of 30 minutes with Teri Toribio today and 30 minutes of that time was spent in counseling and coordination of care as described in the progress note. Bri Murphy PA-C 10/27/2019 16:12 Portions of this document have been prepared with speech recognition software or keyboard data security administrator techniques. Minor irregularities or keyboarding misprints may be present. documented in this encounter Plan of Treatment Upcoming Encounters Date Type Department Care Team (Late st Contact Info) Description 10/22/2023 13:25 EDT Hospital Encounter [facility] OR [address] [place] [id number] [place] Pride MD [address] [place] [phone] 10/22/2023 13:25 EDT - 10/22/2023 17:00 EDT Surgery [facility] OR [address] [place] [address] [phone] [place] Pride MD [address] [place] [phone] Left L34 decompression, redo left L45 decompression [[id number] (CPT??)] 11/22/2023 10:00 EDT Post-op Visit [facility] Neurosurgery - [address] [phone] Madiha Hurtado NP [address] [place] [phone] Scheduled Procedures Name Priority Associated Diagnoses Date/Ti me LAMINECTOMY, SPINE, LUMBAR, 1 LEVEL, WITH FORAMINOTOMY OR FACETECTOMY Lumbar radiculopathy 10/22/2023 13:25 EDT LAMINECTOMY, SPINE, WITH FACETECTOMY AND FORAMINOTOMY, ADDITIONAL LEVEL FOLLOWING INITIAL LEVEL Lumbar radiculopathy 10/22/2023 13:25 EDT documented as of this encounter Visit Diagnoses Diagnosis Mixed obsessional thoughts and acts- Primary Encounter for management of intrauterine contraceptive device (IUD), unspecified IUD management type Lumbar radiculopathy Thoracic or lumbosacral neuritis or radiculitis, unspecified documented in this encounter Care Teams Shingle Grader Relationship Specialty Start Date End Date Bri Murphy PA-C [address] [facility] [address] [place] [phone] PCP - General Internal Medicine - Primary Care 10/16/19 09/15/21 documented as of this encounter
--- OUTSIDE RECORDS SUMMARY | 2023-10-19 15:35 | XMS_ITS | Encounter Summary ---
Author Organization [facility] Address [address] [place] [address] Care Team Providers Care Music Cataloguer Name Role Phone Bri Murphy PA-C Primary Care Provider [phone] Reason for Visit * Reason Onset Date Comments Medications Refill 05/02/2021 Encounter Details Date Type Department Care Team (Late st Contact Info) Description 05/02/2021 Refill [facility] Adult Primary [facility] - [place] [address] [place] [address] Bri Murphy PA-C [address] [place] [phone] Medications Refill Social History Tobacco Use [...] slept in a correction (including now)? No 06/19/2020 Interpersonal Safety Answer Date Record ed Physically Hurt Never 10/27/2019 Verbally Threaten Never 10/27/2019 Education Answer Date Recorded What is the highest level of school you have completed or the highest degree you have received? Master's degree (e.g., MA, MS, Joanne, MEd, SAMPLER FIRST, LILA) 06/19/2020 Sex and Gender Information Value Date Recorded Sex Assigned at Female 10/08/2022 13:26 EDT Gender Identity Female 07/29/2021 16:35 EDT Sexual Orientation Straight 10/08/2022 13 :26 EDT documented as of this encounter Ordered Prescriptions Prescription Sig Dispensed Refills Start Date End Da te gabapentin (NEURONTIN) 300 mg capsule Take 1 capsule by mouth 2 times daily. 60 capsule 05/02/2021 12/09/2021 documented in this encounter Miscellaneous Notes * Telephone Encounter - Destinee Montague PA-C - 05/02/2021 1344 EST eprescribed * Telephone Encounter - Destinee Servin RN - 05/02/2021 1334 EST Patient was prescribed gabapentin by Bri Murphy 01/31/21 and her request of 300 mg BID is less than the original prescription. Patient report being unable to reach most recent prescribing practice. Please see pended for 1 month supply if appropriate. * Telephone Encounter - Shi Dillon - 05/02/2021 1253 EST Requested Prescriptions Pending Prescriptions Disp Refills ??? gabapentin (NEURONTIN) 100 mg capsule 90 capsule 0 Sig: Take 1-3 caps every 6 hours prn pain *patients last script for [facility] They have changed the dosing [id number] bid. She is out of the medication but has been unable to reach them to refill [facility] - [place], [place] - [address] Confirmed Pharmacy? Yes Patient out of medication? Yes: Needs Refill Now Last Refill Date: 01.31.21 Refills left? (explain exceptions requiring early refill) No Recent Visits Date Type Provider Dept 07/02/20 Office Visit Bri Murphy PA-C [facility] Showing recent visits within past 540 days with a meds authorizing provider and meeting all other requirements Future Appointments No visits were found meeting these conditions. Showing future appointments within next 150 days with a meds authorizing provider and meeting all other requirements Future appointment: Already Scheduled Shi Dillon 05/02/2021 12:54 documented in this encounter Plan of Treatment Upcoming Encounters Date Type Department Care Team (Late st Contact Info) Description 10/22/2023 13:25 EDT Hospital Encounter [facility] OR [address] [place] [address] [phone] Walker Pride MD [address] [place] [address] [phone] 10/22/2023 13:25 EDT - 10/22/2023 17:00 EDT Surgery [facility] OR [address] [place] [address] [phone] Walker Pride MD [address] [place] [address] [phone] Left L34 decompression, redo left L45 decompression [[id number] (CPT??)] 11/22/2023 10:00 EDT Post-op Visit [facility] Neurosurgery - [address] [phone] Madiha Hurtado NP [address] [place] [address] [phone] Scheduled Procedures Name Priority Associated Diagnoses Date/Ti [...] Start Date End Da te gabapentin (NEURONTIN) 100 mg capsule Take 1-3 caps every 6 hours prn pain Reorder 01/31/2021 05/02/2021 documented as of this encounter Care Teams Music Cataloguer Relationship Specialty Start Date End Date Bri Murphy PA-C [address] [place] [phone] PCP - General Internal Medicine - Primary Care 10/16/19 09/15/21 documented as of this encounter
--- OUTSIDE RECORDS SUMMARY | 2023-10-19 15:35 | XMS_ITS | Encounter Summary ---
Author Organization [facility] Address [address] [place] [address] Care Team Providers Care Circus Agent Name Role Phone Bri Murphy PA-C Primary Care Provider [phone] Reason for Visit * Reason Onset Date Comments Results 07/02/2020 Encounter Details Date Type Department Care Team (Late st Contact Info) Description 07/02/2020 Orders Only [facility] Adult Primary Care - [place] [address] [place] [address] Bri Murphy PA-C [address] [place] [phone] Social History Tobacco Use Types Packs/Day Years [...] in a skilled nursing (including now)? No 06/19/2020 Interpersonal Safety Answer Date Record ed Physically Hurt Never 10/27/2019 Verbally Threaten Never 10/27/2019 Education Answer Date Recorded What is the highest level of school you have completed or the highest degree you have received? Master's degree (e.g., MA, MS, Joanne, MEd, LANCE CREWMEMBER/MLRS SERGEANT, LILA) 06/19/2020 Sex and Gender Information Value Date Recorded Sex Assigned at Female 10/08/2022 13:26 EDT Gender Identity Female 07/29/2021 16:35 EDT Sexual Orientation Straight 10/08/2022 13 :26 EDT documented as of this encounter Progress Notes * Kiah Padron LPN - 07/02/2020 1133 EDT labs abstracted documented in this encounter Plan of Treatment Upcoming Encounters Date Type Department Care Team (Late st Contact Info) Description 10/22/2023 13:25 EDT Hospital En[facility] [address] [place] [address] [phone] Walker Pride MD [address] [place] [address] [phone] 10/22/2023 13:25 EDT - 10/22/2023 17:00 EDT Surgery [facility] [place] [address] [place] [address] [phone] Walker Pride MD [address] [place] [address] [phone] Left L34 decompression, redo left L45 decompression [[id number] (CPT??)] 11/22/2023 10:00 EDT Post-op Visit [facility] Neurosurgery - [address] [phone] Madiha Hurtado NP [address] [place] [address] [phone] Scheduled Procedures Name Priority Associated Diagnoses Date/Ti me LAMINECTOMY, SPINE, LUMBAR, 1 LEVEL, WITH FORAMINOTOMY OR FACETECTOMY Lumbar radiculopathy 10/22/2023 13:25 EDT LAMINECTOMY, SPINE, WITH FACETECTOMY AND FORAMINOTOMY, ADDITIONAL LEVEL FOLLOWING INITIAL LEVEL Lumbar radiculopathy 10/22/2023 13:25 EDT documented as of this encounter Procedures Procedure Name Priority Date/Time Associated Diagnosis Comments LIPID PROFILE (INCLUDES CHOLESTEROL, TRIGLYCERIDES, HDL, LDL) Routine 07/01/2020 COMPREHENSIVE METABOLIC PANEL (CMP) Routine 07/01/2020 documented in this encounter Results * LIPID PROFILE (INCLUDES CHOLESTEROL, TRIGLYCERIDES, HDL, LDL) (07/01/2020) Cholesterol, External 215 EXTERNAL LAB Triglycerides, External 65 EXTERNAL LAB HDL, External 104 EXTERNAL LAB LDL, External 98 EXTERNAL LAB Chol/HDL Ratio, External 2.06 EXTERNAL LAB Fasting?, External EXTERNAL LAB Blood VENOUS BLOOD / Unknown 07/01/2020 Historical Provider CHEMISTRY & BLOOD GAS ORDERABLES Performing Organization Address [facility] Co de Phone Number EXTERNAL LAB * (ABNORMAL) COMPREHENSIVE METABOLIC PANEL (CMP) (07/01/2020) GFR, Calculated, External >60 EXTERNAL LAB Glucose, Serum, External 80 EXTERNAL LAB Albumin, External 4.1 EXTERNAL LAB Total Alkaline Phosphatase, External 54 EXTERNAL LAB ALT, External 23 EXTERNAL LAB AST, External 15 EXTERNAL LAB BUN, External 9 EXTERNAL LAB Calculated Calcium, External 8.4 EXTERNAL LAB Calcium, External 8.5 EXTERNAL LAB Chloride, External 102 EXTERNAL LAB CO2, External 27.9 EXTERNAL LAB Creatinine, External 0.56 EXTERNAL LAB Fasting?, External EXTERNAL LAB Potassium, External 4.6 EXTERNAL LAB Sodium, External 139 EXTERNAL LAB Total Protein, External 7.0 EXTERNAL LAB Bilirubin, Total, External 0.40 EXTERNAL LAB Blood VENOUS BLOOD / Unknown 07/01/2020 Historical Provider CHEMISTRY & BLOOD GAS ORDERABLES EXTERNAL LAB documented in this encounter Visit Diagnoses Not on filedocumented in this encounter Care Teams Circus Agent Relationship Specialty Start Date End Date Bri Murphy PA-C [address] [place] [phone] PCP - General Internal Medicine - Primary Care 10/16/19 09/15/21 documented as of this encounter
--- OUTSIDE RECORDS SUMMARY | 2023-10-19 15:35 | XMS_ITS | Encounter Summary ---
Author Organization [facility] Address [address] [place] [address] Care Team Providers Care Power Plant Operators Supervisor Name Role Phone Bri Murphy PA-C Primary Care Provider Reason for Visit * Reason Onset Date Comments New/Evolving Symptoms 07/29/2021 Appointment Related 07/29/2021 Encounter Details Date Type Department Care Team (Late st Contact Info) Description 07/29/[address] [facility] Neurosurgery - [address] [address] Mackenzie Freitas RN New/Evolving Symptoms; Appointment Related Social History Tobacco Use Types [...] slept in a assisted (including now)? No 06/19/2020 Interpersonal Safety Answer Date Record ed Physically Hurt Never 10/27/2019 Verbally Threaten Never 10/27/2019 Education Answer Date Recorded What is the highest level of school you have completed or the highest degree you have received? Master's degree (e.g., MA, MS, Joanne, MEd, LOAD TEST MECHANIC, LILA) 06/19/2020 Sex and Gender Information Value Date Recorded Sex Assigned at Female 10/08/2022 13:26 EDT Gender Identity Female 07/29/2021 16:35 EDT Sexual Orientation Straight 10/08/2022 13 :26 EDT documented as of this encounter Miscellaneous Notes * Telephone Encounter - Mackenzie Freitas RN - 07/29/2021 0923 EDT Received call from Teri stating that her appointment with Dr. Pride was rescheduled due to him being sick. However, her pain is increasing and she is having difficulty controlling her bowels, so she is wondering if she would be able to get in with another provider sooner or at least get sooner imaging completed. Outgoing call to Teri. Teri confirmed that she is experiencing bowel incontinence. Encouraged herto be seen at the ED since she is experiencing bowel incontinence. Teri verbalized understanding and states she will be seen at [facility] ED around noon. documented in this encounter Plan of Treatment Upcoming Encounters Date Type Department Care Team (Late st Contact Info) Description 10/22/2023 13:25 EDT Hospital Encounter [facility] OR [address] [place] [address] [phone] Walker Pride MD [address] [place] [address] [phone] 10/22/2023 13:25 EDT - 10/22/2023 17:00 EDT Surgery [facility] OR [address] [place] [address] [phone] Walker Pride MD [address] [place] [address] [phone] Left L34 decompression, redo left L45 decompression [[id number] (CPT??)] 11/22/2023 10:00 EDT Post-op Visit [facility] Neurosurgery - [facility] [address] [place] [address] Madiha Hurtado NP 111 [facility], [facility], [address] [place] [phone] Scheduled Procedures Name Priority Associated Diagnoses Date/Ti me LAMINECTOMY, SPINE, LUMBAR, 1 LEVEL, WITH FORAMINOTOMY OR FACETECTOMY Lumbar radiculopathy 10/22/2023 13:25 EDT LAMINECTOMY, SPINE, WITH FACETECTOMY AND FORAMINOTOMY, ADDITIONAL LEVEL FOLLOWING INITIAL LEVEL Lumbar radiculopathy 10/22/2023 13:25 EDT documented as of this encounter Visit Diagnoses Not on filedocumented in this encounter Care Teams Power Plant Operators Supervisor Relationship Specialty Start Date End Date Bri Murphy PA-C [address] [facility] [address] [place] [phone] PCP - General Internal Medicine - Primary Care 10/16/19 09/15/21 documented as of this encounter
--- OUTSIDE RECORDS SUMMARY | 2023-10-19 15:35 | XMS_ITS | Encounter Summary ---
Author Organization [facility] Address [address] [place] [address] Care Team Providers Care Produce Team Lead Name Role Phone Bri Murphy PA-C Primary Care Provider [phone] Reason for Visit * Reason Onset Date Comments Appointment Related 06/27/2021 Encounter Details Date Type Department Care Team (Late st Contact Info) Description 06/27/2021 Telephone [facility] Neurosurgery - [facility] [address] [place], [place] [phone] Walker Pride MD 111 [facility], [address] [place] [phone] Appointment Related Social History Tobacco [...] Master's degree (e.g., MA, MS, Joanne, MEd, RADIAL DRILL OPERATOR, LILA) 06/19/2020 Sex and Gender Information Value Date Recorded Sex Assigned at Female 10/08/2022 13:26 EDT Gender Identity Female 07/29/2021 16:35 EDT Sexual Orientation Straight 10/08/2022 13 :26 EDT documented as of this encounter Miscellaneous Notes * Telephone Encounter - AntoniaEvelioJael - 06/27/2021 1421 EDT Images from the original note were not included. Called and LM for Teri with the details of her NPV with Dr. Pride: documented in this encounter Plan of Treatment Upcoming Encounters Date Type Department Care Team (Late st Contact Info) Description 10/22/2023 13:25 EDT Hospital Encounter [facility] OR [address] [place] [address] [phone] Walker Pride MD [address] [place] [address] [address] [place] [phone] 10/22/2023 13:25 EDT - 10/22/2023 17:00 EDT Surgery [facility] OR [address] [place] [address] [phone] Walker Pride MD [address] [place] [address] [phone] Left L34 decompression, redo left L45 decompression [[id number] (CPT??)] 11/22/2023 10:00 EDT Post-op Visit [facility] Neurosurgery - [address] [phone] Madiha Hurtado NP [address] [place] [address] [address] [place] [phone] Scheduled Procedures Name Priority Associated Diagnoses Date/Ti me LAMINECTOMY, SPINE, LUMBAR, 1 LEVEL, WITH FORAMINOTOMY OR FACETECTOMY Lumbar radiculopathy 10/22/2023 13:25 EDT LAMINECTOMY, SPINE, WITH FACETECTOMY AND FORAMINOTOMY, ADDITIONAL LEVEL FOLLOWING INITIAL LEVEL Lumbar radiculopathy 10/22/2023 13:25 EDT documented as of this encounter Visit Diagnoses Not on filedocumented in this encounter Care Teams Produce Team Lead Relationship Specialty Start Date End Date Bri Murphy PA-C [address] [place] [phone] PCP - General Internal Medicine - Primary Care 10/16/19 09/15/21 documented as of this encounter
--- OUTSIDE RECORDS SUMMARY | 2023-10-19 15:35 | XMS_ITS | Encounter Summary ---
Author Organization [facility] Address [address] [place] [address] Care Team Providers Care Movie Critic Name Role Phone Miri Vilchis MD PhD Primary Care Provider Reason for Visit * Reason Onset Date Comments Letter for School/Work 05/17/2017 Encounter Details Date Type Department Care Team (Late st Contact Info) Description 05/17/2017 Telephone [facility] Adult Primary Care - [address] [address] Bri Murphy PA-C [address] [facility] [address] [place] [phone] Letter for School/Work Social History Tobacco Use Types Packs/Day Years Used Date Smoking Tobacco: Never Alcohol Use Standard Drinks/Week Comments No 0 (1 standard drink = 0.6 oz pur e alcohol) Sex and Gender Information Value Date Recorded Sex Assigned at Female 10/08/2022 13:26 EDT Gender Identity Female 07/29/2021 16:35 EDT Sexual Orientation Straight 10/08/2022 13 :26 EDT documented as of this encounter Miscellaneous Notes * Telephone Encounter - Bri Murphy PA - 05/17/2017 1649 EST See results letter. documented in this encounter Plan of Treatment Upcoming Encounters Date Type Department Care Team (Late st Contact Info) Description 10/22/2023 13:25 EDT Hospital Encounter [facility] OR [address] [place] [address] [phone] Walker Pride MD [address] [place] [phone] 10/22/2023 13:25 EDT - 10/22/2023 17:00 EDT Surgery [facility] OR [address] [place] [phone] Walker Pride MD [address] [place] [address] [phone] Left L34 decompression, redo left L45 decompression [47517 (CPT??)] 11/22/2023 10:00 EDT Post-op Visit [facility] Neurosurgery - [address] [address] Madiha Hurtado NP [address] [place] [address] [phone] Scheduled Procedures Name Priority Associated Diagnoses Date/Ti pa LAMINECTOMY, SPINE, LUMBAR, 1 LEVEL, WITH FORAMINOTOMY OR FACETECTOMY Lumbar radiculopathy 10/22/2023 13:25 EDT LAMINECTOMY, SPINE, WITH FACETECTOMY AND FORAMINOTOMY, ADDITIONAL LEVEL FOLLOWING INITIAL LEVEL Lumbar radiculopathy 10/22/2023 13:25 EDT documented as of this encounter Visit Diagnoses Not on filedocumented in this encounter Care Teams Movie Critic Relationship Specialty Start Date End Date Miri Vilchis MD PhD [address] [place] [phone] PCP - General 08/20/08 11/21/18 documented as of this encounter
--- OUTSIDE RECORDS SUMMARY | 2023-10-19 15:35 | XMS_ITS | Encounter Summary ---
Author Organization [facility] Address [address] [place] [address] Care Team Providers Care Hot Shot Name Role Phone Bri Murphy PA-C Primary Care Provider [phone] Reason for Referral * Radiology Services (Routine/Next Available) - Authorization Not Required Specialty Diagnoses / Procedures Referred By Contac t Referred To Contact Diagnoses Lumbar radiculopathy Procedures XR LUMBAR SPINE 4 OR MORE VIEWS Madiha Hurtado NP [address] [place] [phone] [facility] Referral ID Status Reason Start Date Expiration Date Visits Requested Visits Authorized [id number] Authorization Not Required 06/27/2021 1 1 Encounter Details Date Type Department Care Team (Late st Contact Info) Description 06/27/2021 Orders Only [facility] Neurosurgery - [address] [address] Madiha Hurtado NP [address] [phone] Lumbar radiculopathy (Primary Dx) Social [...] place to sleep or slept in a long-term (including now)? No 06/19/2020 Interpersonal Safety Answer Date Record ed Physically Hurt Never 10/27/2019 Verbally Threaten Never 10/27/2019 Education Answer Date Recorded What is the highest level of school you have completed or the highest degree you have received? Master's degree (e.g., MA, MS, Joanne, MEd, TAX ACCOUNTING ASSISTANT, LILA) 06/19/2020 Sex and Gender Information Value Date Recorded Sex Assigned at Female 10/08/2022 13:26 EDT Gender Identity Female 07/29/2021 16:35 EDT Sexual Orientation Straight 10/08/2022 13 :26 EDT documented as of this encounter Plan of Treatment Upcoming Encounters Date Type Department Care Team (Late st Contact Info) Description 10/22/2023 13:25 EDT Hospital Encounter [facility] OR [address] [place] [address] [phone] Walker Pride MD [address] [place] [phone] 10/22/2023 13:25 EDT - 10/22/2023 17:00 EDT Surgery [facility] OR [address] [place] [phone] Walker Pride MD [address] [place] [address] [phone] Left L34 decompression, redo left L45 decompression [[id number] (CPT??)] 11/22/2023 10:00 EDT Post-op Visit [facility] Neurosurgery - [address] [place] [address] [place] [address] Madiha Hurtado NP 111 [facility], [facility], [address] [place] [phone] Scheduled Procedures Name Priority Associated Diagnoses Date/Ti [...] normal. No severefacet arthropathy. Madiha Karges Hurtado ELECTRONIC PARTS SALESPERSON IMG DIAGNOSTIC IMAGING ORDERABLES documented in this encounter Visit Diagnoses Diagnosis Lumbar radiculopathy- Primary Thoracic or lumbosacral neuritis or radiculitis, unspecified Lumbar radiculopathy Thoracic or lumbosacral neuritis or radiculitis, unspecified Lumbar radiculopathy Thoracic or lumbosacral neuritis or radiculitis, unspecified documented in this encounter Care Teams Hot Shot Relationship Specialty Start Date End Date Bri Murphy PA-C [address] [facility] [address] [place] [phone] PCP - General Internal Medicine - Primary Care 10/16/19 09/15/21 documented as of this encounter
--- OUTSIDE RECORDS SUMMARY | 2023-10-19 15:35 | XMS_ITS | Encounter Summary ---
Author Organization [facility] Address [address] [place] [address] Care Team Providers Care Vocational Case Manager Name Role Phone Miri Vilchis MD PhD Primary Care Provider Reason for Referral * Consult (Routine) - Specialty Report Received Specialty Diagnoses / Procedures Referred By [facility] Referred To Contact Dermatology Diagnoses Neoplasm of uncertain behavior Family hx of melanoma Bri Murphy PAPrettyC [id number] [facility] [address] [place] [phone] [facility] Dermatology [address] [place] [address] Referral ID Status Reason Start Date Expiration Date Visits Requested Visits Authorized [id number] Specialty Report Received Specialty Services Required 09/09/2017 1 1 Question Answer Reason for Request: Mole on shoulder has become very dark and mole on left labia has become larger & darker. 2 maternal aunts with melanoma. Reason for Visit * Reason Comments Skin Lesion Encounter Details Date Type Department Care Team ([facility] Contact Info) Description 09/09/2017 14:45 EDT Office Visit [facility] Adult Primary Care - [address] [phone] Bri Murphy PA-C [address] [place] [phone] Dysuria (Primary Dx); Neoplasm of uncertain behavior; Family hx of melanoma Discharge Disposition: Auto Discharge Social History Tobacco Use Types Packs/Day Years [...] Reading Time Taken Comments Blood Pressure 110/70 09/09/2017 1431 EDT Pulse 72 09/09/2017 1431 EDT Temperature 35.9 ??C (96.7 ??F) 09/09/2017 1431 EDT Respiratory Rate 14 09/09/2017 1431 EDT Oxygen Saturation - - Inhaled Oxygen Concentration - - Weight 66.2 kg (146 lb) 09/09/2017 1431 EDT Height 165.1 cm (5' 5) 09/09/2017 1431 EDT Body Mass Index 24.3 09/09/2017 1431 EDT documented in this encounter Discharge Diagnoses Diagnosis R30.0 Dysuria-R30.0[ICD-10-CM] D48.9 Neoplasm of uncertain behavior, unspecified-D48.9[ICD-10-CM] Z80.8 Family history of malignant neoplasm of other organs or systems-Z80.8[ICD-10-CM] documented in this encounter Discharge Disposition Disposition Code Departure Means Destination Auto Discharge documented in this encounter Progress Notes * Bri Murphy PA - 09/09/2017 1445 EDT Images from the original note were not included. Subjective: Patient ID: Teri Toribio is an 27 y.o. female. Chief Complaint Patient presents with ??? Skin Lesion HPI Comments: Teri reports a mole on her shoulder that has been there for quite some time. It has always been a light brown freckle colored. Recently has become much darker. She does not think it has become any larger. She decided [place] that [place] has had since she was young child on her left labia has definitely become darker and irregular. She is unsure if it has become larger. She denies any trauma to the area. She does have 2 aunts with melanoma. Her mom has had precancerous skin lesions removed. For the past couple days she has had burning with urination. She is also been experiencing frequency and urgency. The symptoms seem to be getting worse. She denies any blood in her urine. No abnormalvaginal discharge or itchiness. She denies any nausea or vomiting. No fever or chills. No flank or abdominal pain. She has been trying to push fluids. Patient Active Problem List Diagnosis ??? Contraceptive management ??? Constipation by delayed colonic transit ??? Obsessive-compulsive disorder Outpatient Prescriptions Marked as Taking for the 09/09/17 encounter (Office Visit) with Bri Murphy PA Medication Sig Dispense Refill ??? levonorgestrel (MIRENA) 20 mcg/24 hr (5 years) IUD 1 Each by intrauterine route once. ??? Multivitamins with Minerals tablet tablet Take 1 Tab by mouth daily. ROS - unremarkable except as noted in the HPI Objective: BP 110/70 (BP Cuff Location: Left arm, Patient Position: Sitting, BP Cuff Sizes: Adult, regular) Pulse 72 Temp 35.9 ??C (96.7 ??F) (Tympanic) Resp 14 Ht 165.1 cm (65) Wt 66.2 kg (146 lb) LMP Comment: mirena BMI 24.3 kg/m2 Physical Exam Constitutional: She appears well-developed and well-nourished. No distress. Abdominal: There is no tenderness. There is no CVA tenderness. Genitourinary: Skin: Results for orders placed or performed in visit on 09/09/17 POCT URINE DIPSTICK, CLINITEK Result Value Ref Range Color YELLOW Clarity, UA Clear Glucose Neg Neg Bilirubin Neg Neg Ketones Neg Neg Specific [place] 1.010 1.001 - 1.035 Blood Neg Neg pH 7.0 4.6 - 8.0 Protein Neg Neg Urobilinogen 0.2 0.2 - 1.0 E.U./dl Nitrite Neg Neg Leuk Esterase Neg Neg Tech ID [id number] Assessment / Plan: Teri was seen today for skin lesion. Diagnoses and all orders for this visit: Dysuria Urinalysis unremarkable for UTI, but the patient has been pushing fluids. Will send for culture forfurther evaluation. - POCT Urine Dipstick, Clinitek - Bacterial Culture, Urine - UA, Chemical and Sediment Analysis (dipstick and microscopic) Neoplasm of uncertain behavior Family hx of melanoma She does have 2 moles that are darkly pigmented and with the family history of melanoma will refer to dermatology for further evaluation. - Amb Consult/Follow Up Dermatology Portions of this document have been prepared with speech recognition software or keyboard data security analyst techniques. Minor irregularities or keyboarding misprints may be present. ROM Sánchez 09/09/2017 15:25 documented in this encounter Plan of Treatment Upcoming Encounters Date Type Department Care Team (Late st Contact Info) Description 10/22/2023 13:25 EDT Hospital Encounter [facility] OR [address] [place] [address] [phone] Walker Pride MD [address] [place] [phone] 10/22/2023 13:25 EDT - 10/22/2023 17:00 EDT Surgery [facility] OR [address] [place] [address] [phone] Walker Pride MD [address] [place] [phone] Left L34 decompression, redo left L45 decompression [51937 (CPT??)] 11/22/2023 10:00 EDT Post-op Visit [facility] Neurosurgery - [address] [phone] Madiha Hurtado NP [address] [place] [phone] Scheduled Procedures Name Priority Associated Diagnoses Date/Ti me LAMINECTOMY, SPINE, LUMBAR, 1 LEVEL, WITH FORAMINOTOMY OR FACETECTOMY Lumbar radiculopathy 10/22/2023 13:25 EDT LAMINECTOMY, SPINE, WITH FACETECTOMY AND FORAMINOTOMY, ADDITIONAL LEVEL FOLLOWING INITIAL LEVEL Lumbar radiculopathy 10/22/2023 13:25 EDT Scheduled Referrals Name Type Priority Associated Diagnoses Order Schedule AMB CONS/FOLLOW UP DERMATOLOGY Outpatient Referral Routine Neoplasm of uncertain behavior Family hx of melanoma Ordered: 09/09/2017 documented as of this encounter Procedures Procedure Name Priority Date/Time Associated Diagnosis Comments URINE CHEMICAL (DIP) & SEDIMENT (MICRO) WITHOUT REFLEX TO CULTURE Routine 09/09/2017 15:19 EDT Dysuria BACTERIAL CULTURE, URINE Routine 09/09/2017 15:19 EDT Dysuria POCT URINE DIPSTICK, CLINITEK Routine 09/09/2017 14:01 EDT Dysuria documented in this encounter Results * UA, CHEMICAL AND SEDIMENT ANALYSIS (DIPSTICK AND MICROSCOPIC) (09/09/2017 15:19 EDT) Color, UA Colorless 09/09/2017 18:11 [facility] Clarity, UA Clear 09/09/2017 18:11 [facility] Glucose, UA Neg Neg 09/09/2017 18:11 [facility] Bilirubin, UA Neg Neg 09/09/2017 18:11 [facility] Ketones, UA Neg Neg 09/09/2017 18:11 [facility] Refractometer SG,Urine 1.006 1.001 - 1.035 09/09/2017 18:11 [facility] Blood, UA Neg Neg 09/09/2017 18:11 [facility] pH, UA 7.0 4.6 - 8.0 09/09/2017 18:11 [facility] Protein, UA Neg Neg 09/09/2017 18:11 [facility] Urobilinogen, UA Normal Normal E.U./dl 09/09/2017 18:11 [facility] Nitrite, UA Neg Neg 09/09/2017 18:11 [facility] Leuk Esterase Neg Neg 09/09/2017 18:11 [facility] UA Method Used 09/09/2017 15:19 [facility] Comment: Testing performed using [employer] [id number]-[id number]. Urine RBC Count Automated 0 to 2 0 to 2 /HPF 09/09/2017 18:11 [facility] Urine WBC Count Automated 0 to 3 0 to 3 /HPF 09/09/2017 18:11 [facility] Urine Squamous Epithelial Cell Count, Automated None seen None seen /LPF 09/09/2017 18:11 [facility] Urine Hyaline Casts, Automated < or = 10 < or = 10 /LPF 09/09/2017 18:11 [facility] Urine Bacteria Count, Automated None seen None seen 09/09/2017 18:11 [facility] UA Comment Sediment results 09/09/2017 18:11 [facility] Comment: are unreliable on urines unrefrig >2hrs or refrig >8hrs. Urine specimen (specimen) URINE / Unknown 09/09/2017 15:19 EDT 09/09/2017 17:55 EDT Bri Murphy PA-C URINALYSIS ORDERABLE S Performing Organization Address City/[facility]/ZIP Co de Phone Number [facility] [address] [place] [address] * BACTERIAL CULTURE, URINE (09/09/2017 15:19 EDT) Result No growth 09/11/2017 7:23 EDT [facility] Urine specimen (specimen) URINE / Unknown 09/09/2017 15:19 EDT 09/09/2017 17:55 EDT Bri Murphy PA-C MICROBIOLOGY - GENER AL ORDERABLES Performing Organization Address [facility] Co de Phone Number [facility] [address] [place] [address] * POCT URINE DIPSTICK, CLINITEK (09/09/2017 14:01 EDT) Color YELLOW 09/09/2017 15:12 EDT [facility] Clarity, UA Clear 09/09/2017 15:12 EDT [facility] Glucose Neg Neg 09/09/2017 15:12 EDT [facility] Bilirubin Neg Neg 09/09/2017 15:12 EDT [facility] Ketones Neg Neg 09/09/2017 15:12 T [facility] Specific [place] 1.010 1.001 - 1.035 09/09/2017 15:12 EDT [facility] Blood Neg Neg 09/09/2017 15:12 EDT [facility] pH 7.0 4.6 - 8.0 09/09/2017 15:12 EDT [facility] Protein Neg Neg 09/09/2017 15:12 EDT [facility] Urobilinogen 0.2 0.2 - 1.0 E.U./dl 09/09/2017 15:12 T [facility] Nitrite Neg Neg 09/09/2017 15:12 T [facility] Leuk Esterase Neg Neg 09/09/2017 15:12 T [facility] line assembler ID [id number] 09/09/2017 15:12 EDT [facility] Comment:Test performed at [facility][note 3] Urine specimen (specimen) URINE / Unknown 09/09/2017 14:01 EDT 09/09/2017 15:12 EDT Bri Murphy PA-C POINT OF CARE TEST O RDERABLES [facility] [address] [place] [address] documented in this encounter Visit Diagnoses Diagnosis Dysuria- Primary 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
--- OUTSIDE RECORDS SUMMARY | 2023-10-19 15:35 | XMS_ITS | Encounter Summary ---
Author Organization [facility] Address [address] [place] [address] Care Team Providers Care Estate Conservator Name Role Phone Bri Murphy PA-C Primary Care Provider [phone] Reason for Visit * Reason Onset Date Comments Appointment Related 06/18/2020 Encounter Details Date Type Department Care Team (Late st Contact Info) Description 06/18/2020 Telephone [facility] Adult Primary Care - [place] [address] [place], [place] [phone] Bri Murphy PA-C [address] [facility] [address] [place] [phone] Appointment Related Social History Tobacco Use [...] * Telephone Encounter - Shi Dillon - 06/19/2020 1400 EDT Patient called back and does not need to have HIV testing added to labs * Telephone Encounter - Kiah Padron LPN - 06/18/2020 1742 EDT LMTCB re prior lab work. Did not want to leave sensitive question on her voice mail/machine: Do you want to have an HIV screening done with your other labs (cmp and lp) when you get your bloodwork done prior to your 07/02/20 4:00 PM visit with Bri Murphy? documented in this encounter Plan of Treatment Upcoming Encounters Date Type Department Care Team (Late st Contact Info) Description 10/22/2023 13:25 EDT Hospital Encounter [facility] OR [address] [place] [phone] Walker Pride MD [address] [place] [phone] 10/22/2023 13:25 EDT - 10/22/2023 17:00 EDT Surgery [facility] OR [address] [place] [address] [phone] Walker Pride MD [address] [place] [phone] Left L34 decompression, redo left L45 decompression [[id number] (CPT??)] 11/22/2023 10:00 EDT Post-op Visit [facility] Neurosurgery - [address] [place] [address] [place] [address] Madiha Hurtado NP [address] [facility], [address] [place] [phone] Scheduled Procedures Name Priority Associated Diagnoses Date/Ti me LAMINECTOMY, SPINE, LUMBAR, 1 LEVEL, WITH FORAMINOTOMY OR FACETECTOMY Lumbar radiculopathy 10/22/2023 13:25 EDT LAMINECTOMY, SPINE, WITH FACETECTOMY AND FORAMINOTOMY, ADDITIONAL LEVEL FOLLOWING INITIAL LEVEL Lumbar radiculopathy 10/22/2023 13:25 EDT documented as of this encounter Visit Diagnoses Not on filedocumented in this encounter Care Teams Estate Conservator Relationship Specialty Start Date End Date Bri Murphy PA-C [address] [place] [phone] PCP - General Internal Medicine - Primary Care 10/16/19 09/15/21 documented as of this encounter
--- OUTSIDE RECORDS SUMMARY | 2023-10-19 15:35 | XMS_ITS | Encounter Summary ---
Author Organization [facility] Address [address] [place] [address] Care Team Providers Care Profile Trimmer Name Role Phone Miri Vilchis MD PhD Primary Care Provider Reason for Visit * Reason Comments New Patient Visit Skin Exam FBSE- two moles Back ,vulva * Consult (Routine) - Specialty Report Received Specialty Diagnoses / Procedures [facility] Referred To Contact Dermatology Diagnoses Neoplasm of uncertain behavior Family hx of melanoma Bri Murphy PA-C [address] [facility] [address] [place] [phone] [facility] Dermatology [address] [place] [id number] Referral ID Status Reason Start Date Expiration Date Visits Requested Visits Authorized [id number] Specialty Report Received Specialty Services Required 09/09/2017 1 1 Encounter Details Date Type Department Care Team (Late st Contact Info) Description 09/22/2017 13:00 EDT Office Visit [facility] Dermatology 3rd Floor [facility] [address] [place] [address] Michel Clarke MD [address] [place], [place] [phone] Melanocytic nevus, unspecified location (Primary Dx); Neoplasm of uncertain behavior of skin; Family history of melanoma Discharge Disposition: Auto Discharge Social History Tobacco Use Types Packs/Day Years Used Date Smoking Tobacco: Never Smokeless Tobacco: Never Tobacco Cessation:Counseling Given: Yes Alcohol Use Standard Drinks/Week Comments No 0 (1 standard drink = 0.6 oz pur e alcohol) Sex and Gender Information Value Date Recorded Sex Assigned at Female 10/08/2022 13:26 EDT Gender Identity Female 07/29/2021 16:35 EDT Sexual Orientation Straight 10/08/2022 13 :26 EDT documented as of this encounter Discharge Diagnoses Diagnosis D48.5 Neoplasm of uncertain behavior of skin-D48.5[ICD-10-CM] D22.9 Melanocytic nevi, unspecified-D22.9[ICD-10-CM] Z80.8 Family history of malignant neoplasm of other organs or systems-Z80.8[ICD-10-CM] documented in this encounter Discharge Disposition Disposition Code Departure Means Destination Auto Discharge documented in this encounter Progress Notes * Michel Clarke - 09/28/2017 1340 EDT Please give patient benign results. Mild atypia only. No further treatment needed. Michel Clarke MD 09/28/2017 * Sandra Chavez - 09/22/2017 1300 EDT Review of Systems Constitutional: Negative for fatigue, fever and unexpected weight change. HENT: Negative for mouth sores. Eyes: Negative for pain. Respiratory: Negative for cough and shortness of breath. Cardiovascular: Negative for chest pain and palpitations. Gastrointestinal: Negative for abdominal pain, blood in stool, constipation, diarrhea, nausea and vomiting. Genitourinary: Negative for dysuria, frequency and hematuria. Musculoskeletal: Negative for myalgias, joint swelling, arthralgias and muscle stiffness in the morning. Skin: Negative for rash. Neurological: Negative for numbness and headaches. Endo/Heme/Allergies: Does not bruise/bleed easily. Psychiatric/Behavioral: Negative for sleep disturbance. The patient is not nervous/anxious. Sandra Chavez 09/22/2017 12:50 * Andre Andersonn - 09/22/2017 1300 EDT Images from the original note were not included. Dermatology Outpatient Visit Note Chief Complaint Patient presents with ??? New Patient Visit ??? Skin Exam FBSE- two moles Back,vulva Dermatologic History: No specialty comments available. Last Dermatology office visit: New patient visit SUBJECTIVE Ms. Lange is a 27 y.o. female who presents for new evaluation and treatment for skin check. She says she has a history of two aunts that she think both had melanoma. She has one on her right posterior shoulder that she thinks has darkened over the past several months. She also has a dark spot on her labia that she has had since and has noticed that it has changed and she would like to have checked. It used to be a small speck and is larger now. She does not believe that she has had any dark areas under her nail turkish. For full Medical, Surgical, Family, and Social histories, please see the History section of this encounter in the electronic chart which I have personally reviewed. For Review of Systems, Medications and Allergies, please see those sections of this encounter in the electronic chart which I have also reviewed. She has a current medication list which includes the following prescription(s): levonorgestrel and multivitamins with minerals. She has No Known Allergies. OBJECTIVE VS: There were no vitals taken for this visit. Ms. Lange is healthy, well developed, well-nourished and in no acute distress female sitting on the examination table with a normal affect. She is alert and oriented to person, place and time. She has Machuca type II skin. Cutaneous full body examination including the hair, scalp, face, eyelids, lips, neck, chest, back, abdomen, all four extremities, hands, feet, digits and nails was performed.The examination was normal with the addition of the following comments: There were no lesions suspicious for malignancy. - Left labia: ~6 mm brown macule with globular pattern on dermoscopy, light and darker brown areas and a tail - Right posterior shoulder: 3 mm dark brown macule with globular pattern on dermoscopy - Face, trunk, extremities: pinpoint to 4 mm light to dark brown macules and papules ASSESSMENT/PLAN - Neoplasm NOS: Recommended biopsy of the lesion located on the left labia given the diagnostic uncertainty. Ddx includes atypical nevus vs melanotic macule vs MM vs other - Patient was advised of the risks of biopsy, including pain, infection, bleeding, and inevitability of scar formation. Patient was made aware he/she will be called with biopsy results when available, at which time further treatment recommendations will be made based on the results attained. The pat ient understood and was in agreement with this plan. - Nevi: Reassured about the benign appearance of the remainder of her nevi today. A photo was takenof the dark nevus on her right posterior shoulder. Will re-check this at her next visit and she does have other dark low papules. - Family history of melanoma: Discussed that she should verify the diagnosis of melanoma with her aunts. The nature of sun-induced photo-aging and skin cancers is discussed. Sun avoidance, protectiveclothing, and the use of 30-SPF sunscreens is advised. Observe closely for skin damage/changes, andcall if such occurs. PROCEDURE NOTE SHAVE BIOPSY PATIENT INFORMATION: Teri Lange : MRN: [id number] SURGEON: Steve Anderson MD and Michel Clarke MD The indication, risks, benefits and alternatives to this procedure were discussed in detail with the patient and all questions were answered. Informed consent was obtained in writing. PROCEDURE NOTE Specimen A Procedure: Tangential Shave Indication: Diagnostic Biopsy Site: left labia Anesthesia: 1% lidocaine with epinephrine 1:100,000 local infiltration Prep: Alcohol The lesion was prepped as above and locally anesthetized. The specimen was removed by tangential shave using a Dermablade??. Hemostasis was achieved with pressure and/or aluminum chloride. The wound was cleansed with alcohol and a sterile dressing was applied over Petrolatum ointment. Verbal and written wound care instructions were given.The specimen was submitted to pathology for histological evaluation. She will f/u as planned or in the interim should problems arise. Return in about 1 year (around 09/22/2018) for FBSE. Steve Anderson MD 09/22/2017 13:24 Attestation Statement: I saw and examined the patient with the resident/fellow. I agree with the findings and plan of care documented in the resident's/fellow's note. I was present for the entire procedure. Michel Clarke MD 09/29/2017 documented in this encounter Plan of Treatment Upcoming Encounters Date Type Department Care Team (Late st Contact Info) Description 10/22/2023 13:25 EDT Hospital Encounter [facility] OR [address] [place] [address] [phone] Walker Pride MD [address] [place] [phone] 10/22/2023 13:25 EDT - 10/22/2023 17:00 EDT Surgery [facility] [place] [address] [place] [phone] Walker Pride MD [address] [place] [phone] Left L34 decompression, redo left L45 decompression [19959 (CPT??)] 11/22/2023 10:00 EDT Post-op Visit [facility] Neurosurgery - [address] [phone] Madiha Hurtado NP [address] [place] [phone] Scheduled Orders Name Type Priority Associated Diagnoses Orde r Schedule SURGICAL PATHOLOGY- ORDER ONLY Pathology Routine Neoplasm of uncertain behavior of skin Ordered: 09/22/2017 Scheduled Procedures Name Priority Associated Diagnoses Date/Ti me LAMINECTOMY, SPINE, LUMBAR, 1 LEVEL, WITH FORAMINOTOMY OR FACETECTOMY Lumbar radiculopathy 10/22/2023 13:25 EDT LAMINECTOMY, SPINE, WITH FACETECTOMY AND FORAMINOTOMY, ADDITIONAL LEVEL FOLLOWING INITIAL LEVEL Lumbar radiculopathy 10/22/2023 13:25 EDT documented as of this encounter Procedures Procedure Name Priority Date/Time Associated Diagnosis Comments SURGICAL PATHOLOGY Routine 09/22/2017 17 :45 EDT documented in this encounter Results * SURGICAL PATHOLOGY (09/22/2017 17:45 EDT) Pathology Report: SURGICAL PATHOLOGY REPORT Reports generated via electronic interface contain original data; however they are lacking the format of the original report. Caution should be taken when reading/interpret ing unformatted reports. Name: ? TERI LANGE ? Accession #: ? [id number] ? : ? 1990 (Age: 27) ??F ? Collect Date: ? 09/22/2017 ? Location: ? [facility] ? Receive Date: ? 09/22/2017 ? Provider: MICHEL CLARKE MD Copy to: STEVE ANDERSON MD ? Final Pathologic Diagnosis: SKIN OF LABIA, LEFT, SHAVE BIOPSY: - Melanocytic nevus, compound type, with unusual architectural features and mild cytologic atypia. ??See comment. - Nevus present at peripheral and deep tissue edges. Comment: The biopsy consists of a compound melanocytic nevus with architectural and cytologic features that are described in nevi occurring on genital skin. ??The lesion is transected at the peripheral and deep edges of the biopsy specimen. (Dr. Morrow)/[facility] Microscopic Description: Sections are of a dome-shaped papule. ??The epidermis is of normal thickness but has a diminutive rete architecture. ??The papule is formed by a circumscribed and symmetric compound proliferation of melanocytes. ??The junctional component consists primarily of nests with single cells at the summit of the papule. ??The nests are generally small and evenly spaced. ??The melanocytes are slightly enlarged but have relatively uniform round-oval nuclei and a moderate amount of cytoplasm containing melanin pigment. ??The dermal component consists of nests, cords, and strands of similar melanocytes showing team guide maturation with descent. ??(Dr. Morrow)/[facility] Document reviewed and electronically signed by: DAMARIS MORROW MD Report ??Date: 09/24/2017 11:28 By the signature above, the attending physician certifies that he/she has personally conducted a gross and/or microscopic examination of the described specimens and rendered or confirmed the above diagnosis. Specimen(s) Received: Left labia Clinical History: Approximately 6.0 mm brown macule with globular pattern on dermoscopy, light and darker brown areas with a tail, atypical nevus vs MM vs other; clinical diagnosis code: ??D48.5 Gross Description: ? Received in formalin labelled with proper patient identification (initials B, K) and left labia is a shave biopsy of an irregular marley-cavazos papule (0.5 x 0.5 x 0.1 cm). The margin is inked blue. Bisected and submitted in1. Midelia Patel 09/23/2017 8:28 AM End of Report [facility] 09/22/2017 17:4 5 EDT 09/22/2017 17:45 EDT Michel Clarke MD PATHOLOGY ORDERABLES [facility] [address] [place] [address] documented in this encounter Visit Diagnoses Diagnosis Melanocytic nevus, unspecified location- Primary Neoplasm of uncertain behavior of skin Family history of melanoma Family history of other specified malignant neoplasm Lumbar radiculopathy Thoracic or lumbosacral neuritis or radiculitis, unspecified documented in this encounter Care Teams Profile Trimmer Relationship Specialty Start Date End Date Miri Vilcihs MD PhD [address] [place] [phone] PCP - General 08/20/08 11/21/18 documented as of this encounter
--- OUTSIDE RECORDS SUMMARY | 2023-10-19 15:35 | XMS_ITS | Encounter Summary ---
Author Organization [facility] Address [address] [place] [address] Care Team Providers Care Director Of Contracts Name Role Phone Bri Murphy PA-C Primary Care Provider [phone] Reason for Visit * Reason Comments Telemedicine Video Visit Migraine ocular migraines Encounter Details Date Type Department Care Team (Late st Contact Info) Description 08/21/2020 16:15 EDT Telemedicine [facility] Adult Primary Care - [place] [address] [place] [address] Bri Murphy PA-C [address] [place] [phone] Migraine with aura and without status migrainosus, not intractable (Primary Dx) Social History Tobacco Use Types [...] place to sleep or slept in a residential (including now)? No 06/19/2020 Interpersonal Safety Answer Date Record ed Physically Hurt Never 10/27/2019 Verbally Threaten Never 10/27/2019 Education Answer Date Recorded What is the highest level of school you have completed or the highest degree you have received? Master's degree (e.g., MA, MS, Joanne, MEd, [employer], LILA) 06/19/2020 Sex and Gender Information Value Date Recorded Sex Assigned at Female 10/08/2022 13:26 EDT Gender Identity Female 07/29/2021 16:35 EDT Sexual Orientation Straight 10/08/2022 13 :26 EDT documented as of this encounter Ordered Prescriptions Prescription Sig Dispensed Refills Start Date End Da te riboflavin, vitamin B2, 400 mg tabletIndications:Migraine with aura and without status migrainosus, not intractable Take 1 Tab by mouth daily. 90 Tab 3 08/21/2020 09/02/2022 rimegepant 75 mg tablet,disintegratingIndic ations:Migraine with aura and without status migrainosus, not intractable Take 1 Tab by mouth daily as needed (headache). 10 Tab 3 08/21/2020 08/08/2021 documented in this encounter Progress Notes * Bri Murphy PA-C - 08/21/2020 1615 EDT Subjective: Patient ID: Teri Toribio is an 30 y.o. female. Chief Complaint Patient presents with ??? Telemedicine Video Visit ??? Migraine ocular migraines The concept of ???Telemedicine?? has been described [...] participate in today's encounter visit: DAMEON Lorenzo reports headaches for the past 7 to 8 years. She reports she will develop wavy lines in her right eye that will overtake her field of vision and will slowly move over to her left eye. Sometimesit obscures her vision altogether. This can last for up to 30 minutes. It is then immediately followed by a severe headache. She has to go find a dark room to lie down. Sometimes she will be down for12 hours. Lately she has been experiencing significant nausea which is new. She does not vomit. Sometimes she will have diarrhea afterwards. Typically they occur 4 times per year. Her last one was around . 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 She typically will take Excedrin Migraine, ibuprofen or Aleve. It typically does not take away the headache and she just has to lie in a dark room until it subsides. Her mother has ocular migrainesand her maternal aunt had migraine headaches. Patient Active Problem List Diagnosis ??? Contraceptive management ??? Constipation by delayed colonic transit ??? Obsessive-compulsive disorder ??? Migraine with aura and without status migrainosus, not intractable Outpatient Medications Marked as Taking for the 08/21/20 encounter (Telemedicine) with Bri Murphy PA-C Medication Sig Dispense Refill ??? levonorgestrel (MIRENA) 20 mcg/24 hr (5 years) IUD 1 Each by intrauterine route once. 2017 ??? Multivitamins with Minerals tablet tablet Take 1 Tab by mouth daily. ??? sertraline (ZOLOFT) 100 mg tablet Take 1 Tab by mouth daily. 90 Tab 1 ROS - unremarkable except as noted in the HPI Objective: There were no vitals taken for this visit. Physical Exam Constitutional: General: She is not in acute distress. Appearance: She is well-developed and well-nourished. Psychiatric: Mood and Affect: Mood and affect normal. Assessment / Plan: Teri was seen today for telemedicine video visit and migraine. Diagnoses and all orders for this visit: Migraine with aura and without status migrainosus, not intractable We discussed her headaches at length. Because she has migraine with aura and she is taking a SSRI as well as hormonal control she is not a candidate for triptans as it may increase her risk for CVA. Rxni-wml-lzzcrnc analgesics are not helpful. Will prescribe Nurtec. Side effects, risks and benefits of the medication were discussed in detail. If the Nurtec does not provide enough relief she can add an analgesic with it. Also recommend taking vitamin B2 400 mg daily as a prophylactic. - rimegepant 75 mg tablet,disintegrating; Take 1 Tab by mouth daily as needed (headache). - riboflavin, vitamin B2, 400 mg tablet; Take 1 Tab by mouth daily. I spent a total of 22 minutes with Teri Toribio today and 22 minutes of that time was spent in counseling and coordination of care as described in the progress note. Bri Murphy PA-C 08/21/2020 16:43 Portions of this document have been prepared with speech recognition software or keyboard data analytics specialist techniques. Minor irregularities or keyboarding misprints may be present. documented in this encounter Plan of Treatment Upcoming Encounters Date Type Department Care Team (Late st Contact Info) Description 10/22/2023 13:25 EDT Hospital Encounter [facility] OR [address] [place] [address] [phone] Walker Pride MD [address] [place] [phone] 10/22/2023 13:25 EDT - 10/22/2023 17:00 EDT Surgery [facility] [place] [address] [place] [address] [phone] Walker Pride MD [address] [place] [phone] Left L34 decompression, redo left L45 decompression [08040 (CPT??)] 11/22/2023 10:00 EDT Post-op Visit [facility] Neurosurgery - [address] [phone] Madiha Hurtado NP [address] [place] [address], [place] [phone] Scheduled Procedures Name Priority Associated Diagnoses Date/Ti me LAMINECTOMY, SPINE, LUMBAR, 1 LEVEL, WITH FORAMINOTOMY OR FACETECTOMY Lumbar radiculopathy 10/22/2023 13:25 EDT LAMINECTOMY, SPINE, WITH FACETECTOMY AND FORAMINOTOMY, ADDITIONAL LEVEL FOLLOWING INITIAL LEVEL Lumbar radiculopathy 10/22/2023 13:25 EDT documented as of this encounter Visit Diagnoses Diagnosis Migraine with aura and without status migrainosus, not intractable- Primary Migraine with aura, without mention of intractable migraine without mention of status migrainosus Lumbar radiculopathy Thoracic or lumbosacral neuritis or radiculitis, unspecified documented in this encounter Care Teams Director Of Contracts Relationship Specialty Start Date End Date Bri Murphy PA-C [address] [facility] [address] [place] [phone] PCP - General Internal Medicine - Primary Care 10/16/19 09/15/21 documented as of this encounter
--- OUTSIDE RECORDS SUMMARY | 2023-10-19 15:35 | XMS_ITS | Encounter Summary ---
Author Organization [facility] Address [address] [place] [address] Care Team Providers Care Package Dyer Name Role Phone Bri Murphy PA-C Primary Care Provider [phone] Reason for Visit * Reason Comments Obsessive Compulsive Disorder Encounter Details Date Type Department Care Team (Late st Contact Info) Description 01/11/2020 14:00 EDT Telemedicine [facility] Adult Primary Care - [place] [address] [place] [address] Bri Murphy PA-C [address] [place] [phone] Obsessive-compulsive disorder (Primary Dx) Social History Tobacco Use Types [...] as of this encounter Progress Notes * James Mcintyrendy - 01/11/2020 1400 EDT Due to computer system disruption, additional clinical information for this visit is Scanned Note. For patients, please refer to guidance in [employer] on how to locate information. Generally this information will appear as a scanned documents saved in My Documents activity. documented in this encounter Plan of Treatment Upcoming Encounters Date Type Department Care Team (Late st Contact Info) Description 10/22/2023 13:[address] [facility] [place] [address] [place] [address] [phone] Walker Pride MD [address] [place] [phone] 10/22/2023 13:25 EDT - 10/22/2023 17:[address] [facility] [place] [address] [place] [address] [phone] Walker Pride MD [address] [place] [address] [phone] Left L34 decompression, redo left L45 decompression [85953 (CPT??)] 11/22/2023 10:00 EDT Post-op Visit [facility] Neurosurgery - [address] [phone] Madiha Hurtado NP [address] [place] [phone] Scheduled Procedures Name Priority Associated Diagnoses Date/Ti me LAMINECTOMY, SPINE, LUMBAR, 1 LEVEL, WITH FORAMINOTOMY OR FACETECTOMY Lumbar radiculopathy 10/22/2023 13:25 EDT LAMINECTOMY, SPINE, WITH FACETECTOMY AND FORAMINOTOMY, ADDITIONAL LEVEL FOLLOWING INITIAL LEVEL Lumbar radiculopathy 10/22/2023 13:25 EDT documented as of this encounter Visit Diagnoses Diagnosis Obsessive-compulsive disorder- Primary Obsessive-compulsive disorders Lumbar radiculopathy Thoracic or lumbosacral neuritis or radiculitis, unspecified documented in this encounter Care Teams Package Dyer Relationship Specialty Start Date End Date Bri Murphy PA-C [address] [facility] [address] [place] [phone] PCP - General Internal Medicine - Primary Care 10/16/19 09/15/21 documented as of this encounter
--- OUTSIDE RECORDS SUMMARY | 2023-10-19 15:35 | XMS_ITS | Encounter Summary ---
Author Organization [facility] Address [address] [place] [address] Care Team Providers Care Cutting Pressman Name Role Phone Bri Murphy PA-C Primary Care Provider [phone] Reason for Visit * Reason Onset Date Comments Appointment Related 01/01/2021 Encounter Details Date Type Department Care Team (Late st Contact Info) Description 01/01/2021 Telephone [facility] Adult Primary Care - [place] [address] [place] [address] Bri Murphy PA-C [address] [place] [phone] Appointment Related Social History Tobacco Use [...] Master's degree (e.g., MA, MS, Joanne, Arias, CORE DRILL OPERATOR HELPER, LILA) 06/19/2020 Sex and Gender Information Value Date Recorded Sex Assigned at Female 10/08/2022 13:26 EDT Gender Identity Female 07/29/2021 16:35 EDT Sexual Orientation Straight 10/08/2022 13 :26 EDT documented as of this encounter Miscellaneous Notes * Telephone Encounter - Kiah Padron LPN - 01/01/2021 1328 EDT LMTCB with any VS's before her televideo later today documented in this encounter Plan of Treatment Upcoming Encounters Date Type Department Care Team (Late st Contact Info) Description 10/22/2023 13:25 EDT Hospital Encounter [facility] [place] [address] [place] [address] [phone] Walker Pride MD [address] [place] [phone] 10/22/2023 13:25 EDT - 10/22/2023 17:00 EDT Surgery [facility] OR [address] [place] [address] [phone] Walker Pride MD [address] [place] [phone] Left L34 decompression, redo left L45 decompression [[id number] (CPT??)] 11/22/2023 10:00 EDT Post-op Visit [facility] Neurosurgery - [address] [address] Madiha Hurtado NP [address] [place] [phone] Scheduled Procedures Name Priority Associated Diagnoses Date/Ti me LAMINECTOMY, SPINE, LUMBAR, 1 LEVEL, WITH FORAMINOTOMY OR FACETECTOMY Lumbar radiculopathy 10/22/2023 13:25 EDT LAMINECTOMY, SPINE, WITH FACETECTOMY AND FORAMINOTOMY, ADDITIONAL LEVEL FOLLOWING INITIAL LEVEL Lumbar radiculopathy 10/22/2023 13:25 EDT documented as of this encounter Visit Diagnoses Not on filedocumented in this encounter Care Teams Cutting Pressman Relationship Specialty Start Date End Date Bri Murpyh PA-C [address] [place] [phone] PCP - General Internal Medicine - Primary Care 10/16/19 09/15/21 documented as of this encounter
--- OUTSIDE RECORDS SUMMARY | 2023-10-19 15:35 | XMS_ITS | Encounter Summary ---
Author Organization [facility] Address [address] [place] [address] Care Team Providers Care Electronic Console Display Operator Name Role Phone Bri Murphy PA-C Primary Care Provider [phone] Encounter Details Date Type Department Care Team (Late st Contact Info) Description 07/10/2020 Orders Only [facility] Adult Primary Care - [place] [address] [place] [address] Bri Murphy PA-C [address] [facility] [address] [place] [phone] Social History Tobacco Use Types Packs/Day [...] Master's degree (e.g., MA, MS, Joanne, MEd, HOME ENERGY RATER, LILA) 06/19/2020 Sex and Gender Information Value Date Recorded Sex Assigned at Female 10/08/2022 13:26 EDT Gender Identity Female 07/29/2021 16:35 EDT Sexual Orientation Straight 10/08/2022 13 :26 EDT documented as of this encounter Ordered Prescriptions Prescription Sig Dispensed Refills Start Date End Da te fluconazole (DIFLUCAN) 150 mg tablet Take 1 Tab by mouth once for 1 day. 1 Tab 07/10/2020 07/11/2020 documented in this encounter Plan of Treatment Upcoming Encounters Date Type Department Care Team (Late st Contact Info) Description 10/22/2023 13:25 EDT Hospital Encounter [facility] OR [address] [place] [address] [phone] Walker Pride MD [address] [place] [phone] 10/22/2023 13:25 EDT - 10/22/2023 17:00 EDT Surgery [facility] OR [address] [place] [address] [phone] Walker Pride MD [address] [place] [phone] Left L34 decompression, redo left L45 decompression [[id number] (CPT??)] 11/22/2023 10:00 EDT Post-op Visit [facility] Neurosurgery - [address] [phone] Madiha Hurtado NP [address] [place] [phone] Scheduled Procedures Name Priority Associated Diagnoses Date/Ti me LAMINECTOMY, SPINE, LUMBAR, 1 LEVEL, WITH FORAMINOTOMY OR FACETECTOMY Lumbar radiculopathy 10/22/2023 13:25 EDT LAMINECTOMY, SPINE, WITH FACETECTOMY AND FORAMINOTOMY, ADDITIONAL LEVEL FOLLOWING INITIAL LEVEL Lumbar radiculopathy 10/22/2023 13:25 EDT documented as of this encounter Visit Diagnoses Not on filedocumented in this encounter Care Teams Electronic Console Display Operator Relationship Specialty Start Date End Date Bri Murphy PA-C [address] [place] [phone] PCP - General Internal Medicine - Primary Care 10/16/19 09/15/21 documented as of this encounter
--- OUTSIDE RECORDS SUMMARY | 2023-10-19 15:35 | XMS_ITS | Encounter Summary ---
Author Organization [facility] Address [address] [place] [address] Care Team Providers Care Staffing Account Manager Name Role Phone Bri Murphy PA-C Primary Care Provider [phone] Reason for Visit * Reason Onset Date Comments Results 01/29/2021 Encounter Details Date Type Department Care Team (Late st Contact Info) Description 01/29/2021 Telephone [facility] Adult Primary Care - [place] [address] [place] [address] Bri Murphy PA-C [address] [place] [phone] Results Social History Tobacco Use Types Packs/Day [...] Master's degree (e.g., MA, MS, Joanne, MEd, LIQUID FLAVOR COMPOUNDER, LILA) 06/19/2020 Sex and Gender Information Value Date Recorded Sex Assigned at Female 10/08/2022 13:26 EDT Gender Identity Female 07/29/2021 16:35 EDT Sexual Orientation Straight 10/08/2022 13 :26 EDT documented as of this encounter Miscellaneous Notes * Telephone Encounter - Destinee Jama RN - 01/29/2021 1146 EST Spoke to patient, discussed results. She will wait to hear from pain clinic for next steps. * Telephone Encounter - Destinee Jama RN - 01/29/2021 1138 EST Left message requesting call back. DESTINEE JAMA RN 01/29/2021 11:38 * Telephone Encounter - Bri Murphy PA-C - 01/29/2021 1111 EST Please let her know the MRI shows a disc bulge at L4-5 impinging the L5 nerve root which is why sheis having pain into her left leg. I have referred her to the Interventional Spine clinic in [place] to discuss next steps. Most likely an injection will be needed. documented in this encounter Plan of Treatment Upcoming Encounters Date Type Department Care Team (Late st Contact Info) Description 10/22/2023 13:25 EDT Hospital Encounter [facility] OR [address] [place], [place] [phone] Walker Pride MD [address] [facility], [address] [place] [phone] 10/22/2023 13:25 EDT - 10/22/2023 17:00 EDT Surgery [facility] OR [address] [place], [place] [phone] Walker Pride MD 111 [facility], [address] [place] [phone] Left L34 decompression, redo left L45 decompression [[id number] (CPT??)] 11/22/2023 10:00 EDT Post-op Visit [facility] Neurosurgery - [facility] [address] [place], [place] [phone] Madiha Hurtado NP [address] [place] [address], [address] [place] [phone] Scheduled Procedures Name Priority Associated Diagnoses Date/Ti me LAMINECTOMY, SPINE, LUMBAR, 1 LEVEL, WITH FORAMINOTOMY OR FACETECTOMY Lumbar radiculopathy 10/22/2023 13:25 EDT LAMINECTOMY, SPINE, WITH FACETECTOMY AND FORAMINOTOMY, ADDITIONAL LEVEL FOLLOWING INITIAL LEVEL Lumbar radiculopathy 10/22/2023 13:25 EDT documented as of this encounter Visit Diagnoses Diagnosis Radicular syndrome of left leg- Primary Thoracic or lumbosacral neuritis or radiculitis, unspecified Bulging lumbar disc Displacement of lumbar intervertebral disc without myelopathy Lumbar radiculopathy Thoracic or lumbosacral neuritis or radiculitis, unspecified documented in this encounter Care Teams Staffing Account Manager Relationship Specialty Start Date End Date Bri Murphy PA-C [address] [facility] [address] [place] [phone] PCP - General Internal Medicine - Primary Care 10/16/19 09/15/21 documented as of this encounter
--- OUTSIDE RECORDS SUMMARY | 2023-10-19 15:35 | XMS_ITS | Encounter Summary ---
Author Organization [facility] Address [address] [place] [address] Care Team Providers Care Embossograph Operator Name Role Phone Bri Murphy PA-C Primary Care Provider [phone] Reason for Visit * Reason Onset Date Comments Appointment Related 07/28/2021 Encounter Details Date Type Department Care Team (Late st Contact Info) Description 07/28/2021 Telephone [facility] Neurosurgery - [facility] [address] [place], [place] [phone] Walker Pride MD 111 [facility], [address] [place] [phone] Appointment Related Social History Tobacco [...] degree (e.g., MA, MS, Joanne, MEd, AIR AND MISSILE DEFENSE CREWMEMBER, LILA) 06/19/2020 Sex and Gender Information Value Date Recorded Sex Assigned at Female 10/08/2022 13:26 EDT Gender Identity Female 07/29/2021 16:35 EDT Sexual Orientation Straight 10/08/2022 13 :26 EDT documented as of this encounter Miscellaneous Notes * Telephone Encounter - Jael Knight - 07/28/2021 1329 EDT Images from the original note were not included. Called and LM for Teri letting her know that her 07/30 appointment has been rescheduled due to Dr. Pride being ill: documented in this encounter Plan of Treatment Upcoming Encounters Date Type Department Care Team (Late st Contact Info) Description 10/22/2023 13:25 EDT Hospital Encounter [facility] OR [address] [place] [address] [phone] Walker Pride MD [address] [place] [phone] 10/22/2023 13:25 EDT - 10/22/2023 17:00 EDT Surgery [facility] OR [address] [place] [address] [phone] Walker Pride MD [address] [place] [phone] Left L34 decompression, redo left L45 decompression [[id number] (CPT??)] 11/22/2023 10:00 EDT Post-op Visit [facility] Neurosurgery - [address] [phone] Madiha Hurtado NP 111 [facility], [address] [place] [phone] Scheduled Procedures Name Priority Associated Diagnoses Date/Ti me LAMINECTOMY, SPINE, LUMBAR, 1 LEVEL, WITH FORAMINOTOMY OR FACETECTOMY Lumbar radiculopathy 10/22/2023 13:25 EDT LAMINECTOMY, SPINE, WITH FACETECTOMY AND FORAMINOTOMY, ADDITIONAL LEVEL FOLLOWING INITIAL LEVEL Lumbar radiculopathy 10/22/2023 13:25 EDT documented as of this encounter Visit Diagnoses Not on filedocumented in this encounter Care Teams Embossograph Operator Relationship Specialty Start Date End Date Bri Murphy PA-C [address] [place] [phone] PCP - General Internal Medicine - Primary Care 10/16/19 09/15/21 documented as of this encounter
--- OUTSIDE RECORDS SUMMARY | 2023-10-19 15:35 | XMS_ITS | Encounter Summary ---
Author Organization [facility] Address [address] [place] [address] Care Team Providers Care Um Rn Name Role Phone Bri Murphy PA-C Primary Care Provider [phone] Reason for Visit * Reason Onset Date Comments Appointment Related 01/02/2021 Encounter Details Date Type Department Care Team (Late st Contact Info) Description 01/02/2021 Telephone [facility] Adult Primary Care - [place] [address] [place] [address] Bri Murphy PA-C [address] [place] [phone] Appointment Related Social History Tobacco Use [...] Master's degree (e.g., MA, MS, Joanne, MEd, FORENSIC SCIENCE TECHNICIAN, LILA) 06/19/2020 Sex and Gender Information Value Date Recorded Sex Assigned at Female 10/08/2022 13:26 EDT Gender Identity Female 07/29/2021 16:35 EDT Sexual Orientation Straight 10/08/2022 13 :26 EDT documented as of this encounter Miscellaneous Notes * Telephone Encounter - Vivien Baptiste - 01/02/2021 0928 EDT Left message and sent [employer] message for patient to call and schedule a 6 month follow up televideo visit with ROM Dickerson around 07/02/2021 for 6 month follow up for headaches and OCD documented in this encounter Plan of Treatment Upcoming Encounters Date Type Department Care Team (Late st Contact Info) Description 10/22/2023 13:25 EDT Hospital Encounter [facility] OR [address] [place] [address] [phone] Walker Pride MD [address] [place] [phone] 10/22/2023 13:25 EDT - 10/22/2023 17:00 EDT Surgery [facility] OR [address] [place] [address] [phone] Walker Pride MD [address] [place] [phone] Left L34 decompression, redo left L45 decompression [[id number] (CPT??)] 11/22/2023 10:00 EDT Post-op Visit [facility] Neurosurgery - [address] [phone] Madiha Hurtado KARIME [address] [facility], [address] [place] [phone] Scheduled Procedures Name Priority Associated Diagnoses Date/Ti me LAMINECTOMY, SPINE, LUMBAR, 1 LEVEL, WITH FORAMINOTOMY OR FACETECTOMY Lumbar radiculopathy 10/22/2023 13:25 EDT LAMINECTOMY, SPINE, WITH FACETECTOMY AND FORAMINOTOMY, ADDITIONAL LEVEL FOLLOWING INITIAL LEVEL Lumbar radiculopathy 10/22/2023 13:25 EDT documented as of this encounter Visit Diagnoses Not on filedocumented in this encounter Care Teams Um Rn Relationship Specialty Start Date End Date Bri Murphy PA-C [address] [facility] [address] [place] [phone] PCP - General Internal Medicine - Primary Care 10/16/19 09/15/21 documented as of this encounter
--- OUTSIDE RECORDS SUMMARY | 2023-10-19 15:35 | XMS_ITS | Encounter Summary ---
Author Organization [facility] Address [address] [place] [address] Care Team Providers Care Supervisor Frame Sample And Pattern Name Role Phone Bri Murphy PA-C Primary Care Provider [phone] Reason for Visit * Reason Comments Medication Management follow up Telemedicine Video Visit Encounter Details Date Type Department Care Team (Late st Contact Info) Description 04/02/2020 16:15 EST Telemedicine [facility] Adult Primary Care - [place] [address] [place] [address] Bri Murphy PA-C [address] [place] [phone] Mixed obsessional thoughts and acts (Primary Dx) Social History Tobacco Use Types [...] - - Weight 66.2 kg (146 lb) 04/02/2020 1639 EST Height - - Body Mass Index 24.3 09/09/2017 1431 EDT documented in this encounter Ordered Prescriptions Prescription Sig Dispensed Refills Start Date End Da te sertraline (ZOLOFT) 50 mg tabletIndications:Mixed obsessional thoughts and acts Take 1.5 Tabs by mouth daily. 60 Tab 1 04/02/2020 05/15/2020 documented in this encounter Progress Notes * Bri Murphy PA-C - 04/02/2020 1615 EST Subjective: Patient ID: Teri Toribio is an 29 y.o. female. Chief Complaint Patient presents with ??? Medication Management follow up ??? Telemedicine Video Visit The concept of ???Telemedicine?? has been described [...] participate in today's encounter visit: DAMEON Lorenzo was last seen in December for OCD. At that time the sertraline was increased to 50 mg. She notes minimal improvement. She finds that it helps her settle down easier for bedtime. And maybe it helps her overall anxiety but she is finding that she is having more days feeling very anxious. When she becomes quite anxious she starts doing OCD behaviors. She works with her therapist on a regular basis and does have tools to help her with the OCD but she still struggles at times. She has had no side effects from the sertraline. Patient Active Problem List Diagnosis ??? Contraceptive management ??? Constipation by delayed colonic transit ??? Obsessive-compulsive disorder Outpatient Medications Marked as Taking for the 04/02/20 encounter (Telemedicine) with Bri Murphy PA-C Medication Sig Dispense Refill ??? levonorgestrel (MIRENA) 20 mcg/24 hr (5 years) IUD 1 Each by intrauterine route once. 2017 ??? Multivitamins with Minerals tablet tablet Take 1 Tab by mouth daily. ??? [DISCONTINUED] sertraline (ZOLOFT) 50 mg tablet Take 50 mg by mouth daily. ROS - unremarkable except as noted in the HPI Objective: Wt 66.2 kg (146 lb) BMI 24.30 kg/m?? Physical Exam Constitutional: General: She is not in acute distress. Appearance: She is well-developed and well-nourished. Psychiatric: Attention and Perception: Attention normal. Mood and Affect: Mood is anxious. Mood is not depressed. Speech: Speech normal. Behavior: Behavior normal. Thought Content: Thought content normal. Cognition and Memory: Cognition and memory normal. Judgment: Judgment normal. Assessment / Plan: Teri was seen today for medication management and telemedicine video visit. Diagnoses and all orders for this visit: Mixed obsessional thoughts and acts She will increase the sertraline to 75 mg. She will continue to work with her therapist. She will let me know how she is doing in about 4 weeks. If still no significant improvement will increase to 100 mg. She will follow-up in the office in about 3 months for an annual with Pap. - sertraline (ZOLOFT) 50 mg tablet; Take 1.5 Tabs by mouth daily. I spent a total of 15 minutes with Teri Tatum Catarino today and 15 minutes of that time was spent in counseling and coordination of care as described in the progress note. Bri Murphy PA-C 04/02/2020 16:55 Portions of this document have been prepared with speech recognition software or keyboard test data developer techniques. Minor irregularities or keyboarding misprints may be present. documented in this encounter Plan of Treatment Upcoming Encounters Date Type Department Care Team (Late st Contact Info) Description 10/22/2023 13:25 EDT Hospital Encounter [facility] OR [address] [place] [address] [phone] Walker Pride MD [address] [place] [phone] 10/22/2023 13:25 EDT - 10/22/2023 17:00 EDT Surgery [facility] OR [address] [place] [address] Walker Pride MD [address] [place] [phone] Left L34 decompression, redo left L45 decompression [[id number] (CPT??)] 11/22/2023 10:00 EDT Post-op Visit [facility] Neurosurgery - [address] [phone] Madiha Hurtado NP [address] [place] [phone] Scheduled Procedures Name Priority Associated Diagnoses Date/Ti me LAMINECTOMY, SPINE, LUMBAR, 1 LEVEL, WITH FORAMINOTOMY OR FACETECTOMY Lumbar radiculopathy 10/22/2023 13:25 EDT LAMINECTOMY, SPINE, WITH FACETECTOMY AND FORAMINOTOMY, ADDITIONAL LEVEL FOLLOWING INITIAL LEVEL Lumbar radiculopathy 10/22/2023 13:25 EDT documented as of this encounter Visit Diagnoses Diagnosis Mixed obsessional thoughts and acts- Primary Lumbar radiculopathy Thoracic or lumbosacral neuritis or radiculitis, unspecified documented in this encounter Discontinued Medications Medication Sig Discontinue Reason Start Date End Da te sertraline (ZOLOFT) 25 mg tablet take 1 tablet by mouth once daily Dose adjustment 01/05/2020 04/02/2020 sertraline (ZOLOFT) 50 mg tablet Take 50 mg by mouth daily. Dose adjustment 01/18/2020 04/02/2020 documented as of this encounter Historical Medications * This list may reflect changes made after this encounter. Medication Sig Dispensed Refills Start Date End Date sertraline (ZOLOFT) 50 mg tablet Take 50 mg by mouth daily. 01/18/2020 04/02/2020 added in this encounter Care Teams Supervisor Frame Sample And Pattern Relationship Specialty Start Date End Date Bri Murphy PA-C [address] [place] [phone] PCP - General Internal Medicine - Primary Care 10/16/19 09/15/21 documented as of this encounter
--- OUTSIDE RECORDS SUMMARY | 2023-10-19 15:35 | XMS_ITS | Encounter Summary ---
Author Organization [facility] Address [address] [place] [address] Care Team Providers Care Advanced [employer] Associate Name Role Phone Bri Murphy PA-C Primary Care Provider [phone] Reason for Visit * Reason Comments Urinary Incontinence Pt states has a her niated disc and was scheduled for repair for dr Tapia. States surgery was recently rescheduled but she wa advised to come to ed bc nearly loosing control of bladder and bowels. Encounter Details Date Type Department Care Team (Late st Contact Info) Description 07/29/2021 15:48 EDT - 07/30/2021 1:44 EDT Emergency [facility] Emergency Department - [address] [address] Kalyani Guajardo PA-C [address] [place] [phone] Avery Reardon PA-C [address] [place] [phone] Back pain, unspecified back location, unspecified back pain laterality, unspecified chronicity (Primary Dx) Discharge Disposition: Home or Self Care Social [...] in a senior care (including now)? No 06/19/2020 Interpersonal Safety Answer Date Record ed Physically Hurt Never 10/27/2019 Verbally Threaten Never 10/27/2019 Education Answer Date Recorded What is the highest level of school you have completed or the highest degree you have received? Master's degree (e.g., MA, MS, Joanne, MEd, [employer], LILA) 06/19/2020 Sex and Gender Information [...] 15:24 EDT documented as of this encounter Last Filed Vital Signs Vital Sign Reading Time Taken Comments Blood Pressure 133/92 07/29/2021 2205 EDT Pulse 73 07/29/2021 2205 EDT Temperature 36.8 ??C (98.2 ??F) 07/29/2021 1523 EDT Respiratory Rate 14 07/29/2021 2205 EDT Oxygen Saturation 100% 07/29/2021 2205 EDT Inhaled Oxygen Concentration - - Weight 63.5 kg (140 lb) 07/29/2021 1523 EDT Height 165 cm (5' 4.96) 07/29/2021 1523 EDT Body Mass Index 23.33 07/29/2021 1523 EDT documented in this encounter Discharge Instructions * Discharge Instructions* Avery Reardon PA-C - 07/30/2021 1:39 EDT Follow-up with neurosurgery in spinal as discussed with orthopedic resident. Nothing to eat after 4AM this morning documented in this encounter Medications at Time of Discharge Medication Sig Dispensed Refills Start Date End Date levonorgestreL (MIRENA) 20 mcg/24 hours (8 yrs) 52 mg IUD 1 Each by intrauterine route Once. 2016 Multivitamins with Minerals tablet tablet Take 1 Tablet by mouth daily. baclofen (LIORESAL) 10 mg tablet Take 10 mg by mouth 2 times daily. 07/03/2022 gabapentin (NEURONTIN) 300 mg capsule Take 1 capsule by mouth 2 times daily. 60 capsule 05/02/2021 12/09/2021 riboflavin, vitamin B2, 400 mg tabletIndications:Sameer [...] or Self Custodial documented in this encounter Consult Notes * Alissa Negro MD - 07/30/2021 0144 EDT Orthopaedic Spine Surgery Consultation Consultation requested by: ROM Shi for: Rule out cauda equina HPI: Teri Toribio is a 31 y.o. female who is previously healthy presents with 10% low back pain and 90% left lower extremity pain. This has been going on since October 2020 initially started as back pain but has morphed more into leg pain. She does not remember a large traumatic event but she did tackle her dog approximately 1 week before this pain started and attributes the pain to that. Since then, she has been taking acetaminophen, ibuprofen, gabapentin 3 mg 3 times daily, baclofen 10 mg twice daily which has not helped, PT caused her to have increased pain so she discontinued this. She triedworking with a chiropractor. She is also had 2 injections. Both of them have lasted for a few days only each, with then return of her symptoms. After the second shot back in May she had worsening of her symptoms. There was some initial report of bowel and bladder issues, however upon further questioning, patient states that occasionally she will feel the urge to urinate or defecate and then will make it to the bathroom but has some pressure sensations. She has never had any bowel or bladder incontinence. Denies saddle anesthesia. Ambulatory status: She is initially independently ambulatory, however she is been on crutches for the past few weeks due to this pain Past medical history: The Past surgical history: None Medications: Prior to Admission medications Medication Sig Start Date End Date Taking? Authorizing Provider baclofen (LIORESAL) 10 mg tablet Take 10 mg by mouth 2 times daily. Yes Dioni Lawson MD gabapentin (NEURONTIN) 300 mg capsule Take 1 capsule by mouth 2 times daily. Patient taking differently: Take 300 mg by mouth 3 times daily. 05/02/21 Destinee Montague PA-C levonorgestrel (MIRENA) 20 mcg/24 hr (5 years) IUD 1 Each by intrauterine route once. 2016 ProviderDioni MD Multivitamins with Minerals tablet tablet Take 1 Tab by mouth daily. Yes ProviderDioni MD riboflavin, vitamin B2, 400 mg tablet Take 1 Tab by mouth daily. 08/21/20 Yes Bri Murphy PA-C rimegepant 75 mg tablet,disintegrating Take 1 Tab by mouth daily as needed (headache). Patient not taking: Reported on 07/29/2021 08/21/20 Bri Murphy PA-C sertraline (ZOLOFT) 100 mg tablet Take 1 Tablet by mouth daily. 09/12/20 Yes Bri Murphy PA-C No Known Allergies Family History Problem Relation Age of Onset ??? Melanoma Maternal Aunt ??? Melanoma Maternal Aunt ??? MS Mother ??? Breast Cancer Mother 62 ??? Thyroid Disease Mother ??? Diabetes Father ??? Heart Attack Father 65 s/p stents ??? Stroke Father ??? High Cholesterol Father ??? High Blood Pressure Father ??? Atrial fibrillation Maternal Grandmother ??? Tuberculosis Maternal Grandfather Social History: Patient lives in [place] alone. 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 She denies smoking. Occasional alcohol use. Denies drug use. Physical Exam: BP (!) 133/92 Pulse 73 Temp 36.8 ??C (98.2 ??F) Resp 14 Ht 165 cm (64.96) Wt 63.5 kg (140 lb) SpO2 100% BMI 23.33 kg/m?? Gen: no apparent distress Cards: Regular rate as judged by distal pulses Pulm: Non-labored breathing Focused Musculoskeletal and Neurovascular Examination Temp (24hrs), Av.8 ??C (98.2 ??F), Min:36.8 ??C (98.2 ??F), Max:36.8 ??C (98.2 ??F) Blood pressure (!) 133/92, pulse 73, temperature 36.8 ??C (98.2 ??F), resp. rate 14, height 165 cm (64.96), weight 63.5 kg (140 lb), SpO2 100 %. Gen: mild distress, in pain. Alert, normal mood & communication Back non-tender in C-spine,T-spine, L-spine but is tender to the left side paraspinal muscles of the lumbar spine. No bogginess, no step offs, no abrasions/ecchymoses UE: RIGHT Deltoid (C5) 5/5 Biceps (C5, 6) 5/5 Triceps (C7) 5/5 Wrist/Finger Ext (C7, 8) 5/5 Wrist/Finger Flex (C8, T1) 5/5 Interrosei (T1) 5/5 Event Staff Member (T1) 5/5 LEFT Deltoid (C5) 5/5 Biceps (C5, 6) 5/5 Triceps (C7) 5/5 Wrist/Finger Ext (C7, 8) 5/5 Wrist/Finger Flex (C8, T1) 5/5 Interrosei (T1) 5/5 Event Staff Member (T1) 5/5 RIGHT Brachioradialis (C5) 1+, Bicep (C5) 1+, Tricep (C7) 1+ Sensation intact (C5/6/7/8/T1 distributions). 2+ radial pulse. neg Herman LEFT Brachioradialis (C5) 1+, Bicep (C5) 1+, Tricep (C7) 1+ Sensation intact (C5/6/7/8/T1 distributions). 2+ radial pulse. neg Herman LE : Right: Iliopsoas(L2, 3) 5/5 Quadricep (L3, 4) 5/5 Hamstrings (L5, S1) 5/5 Tibialis Anterior (L4, 5) 5/5 Gastroc/Soleus (S1, S2) 5/5 Extensor Hallicus (L5) 5/5 Left: Iliopsoas(L2, 3) 5/5 Quadricep (L3, 4) 5/5 Hamstrings (L5, S1) 5/5 Tibialis Anterior (L4, 5) 5/5 Gastroc/Soleus (S1, S2) 5/5 Extensor Hallicus (L5) 3/5 LE Reflex: Right: Patellar 2+, Achilles 1+ Sensation intact (L3/L4/L5/S1 distributions) no clonus, 2+ DP pulse. Left: Patellar 2+, Achilles 1+ Sensation decreased over the dorsal lateral aspect of the foot and lateral leg. Slight decrease sensation on the plantar aspect of the foot. Otherwise intact no clonus, 2+ DP pulse. Rectal Exam: perianal sensation intact. Intact tone. Intact voluntary contraction. Intact deep sensation Labs: Diagnostic Imaging: -MRI of the lumbar spine obtained this evening as compared to that taken January 2021 both demonstrate a left paracentral L4-5 disc herniation with impingement of the left L5 nerve root. There is interval increase in this discontinuation from January to now -Upright radiographs lumbar spine including flexion-extension demonstrate a gentle curve of the thoracolumbar spine which may be pain and postural related as the spinous processes remain centered rather than having a rotational component. No spondylolisthesis and normal abnormal motion on flexion extension. Assessment: Teri Toribio [id number] 1990 Teri Toribio is a 31 y.o. female who is otherwise healthy presents with a left L4-5 paracentral disc herniation and concordant left L5 radicular symptoms. She was initially supposed to meet with Dr. Prdie regarding the symptoms, however her appointment has been pushed back. She does not have cauda equina. She has no other emergent changes. She should follow-up as originally scheduled. Plan: Activity as tolerated Continue pain management as well Keep appointment with Dr. Pride as scheduled on 08/08 Discussed with: Dr. Krystle NEGRO MD 07/30/21 10:12 documented in this encounter ED Notes * Marielos Perera - 07/30/2021 0141 EDT AVS reviewed with patient. All questions addressed. Vitally stable. Able to ambulate off unit with steady gate, belongings with patient. Instructed to follow up with primary care. * Avery Reardon PA-C - 07/30/2021 0110 EDT I, Nikos Gregg, am scribing for Avery Reardon PA-C while he/she is personally performing the service. Nikos Gregg 07/30/2021 1:10 Teri Toribio is a 31 y.o. female who presents to the ED with worsening back pain, leg weakness, and new bowel incontinence. The patient states that she has a known L4-5 disc herniation, and her symptoms have been getting worse for the past 9 months. Care and work-up prior to sign out includes X-ray and MR lumbar spine. I assumed care of patient from Kalyani Guajardo PA-C with Orthopedics recommendations pending. After I assumed care the patient had: 0110: Discussed the patient with Orthopedics resident. They state the patient is stable for discharge with a plan for her to be NPO after 0. The resident states they will discuss surgical intervention tomorrow morning with the day team. At this time, the patient was stable for discharge home due to her stable exam. Prior to discharge usual and customary precautions were reviewed with the patient and/or family including follow-up instructions and reasons to return to the Emergency Department if condition worsens, does not improve as expected, or other new concerns arise. Final diagnoses: Back pain, unspecified back location, unspecified back pain laterality, unspecified chronicity This documentation is recorded by Nikos Gregg acting as Scribe under the direction and presence of Avery Reardon PA-C. Avery Reardon PA-C: I personally performed the services recorded by the scribe in my presence. I confirm the scribe's documentation has been reviewed by me to accurately and completely record my work, treatment, procedures, and medical decision making. Dr. Tisha Burgos was available for supervision * Marielos Perera - 07/30/2021 0105 EDT MD Reist at bedside for surgical consent. Plan is to follow up in AM with spine doctor for potential surgery this week. * Marielos Perera - 07/29/2021 2354 EDT Ortho spine at bedside * Herman Waggoner RN - 07/29/2021 2240 EDT updated pt and family memeber * Herman Waggoner RN - 07/29/2021 2114 EDT tx to MRI by MRI staff * Herman Waggoner RN - 07/29/2021 2114 EDT Medicated for MRI * Herman Waggoner RN - 07/29/2021 1937 EDT Ice chips given per , waiting MRI * Herman Waggoner RN - 07/29/2021 1927 EDT 12 Lead EKG Performed by HERMAN WAGGONER RN and shown to Kalyani Guajardo PA*. * Kalyani Guajardo PA-C - 07/29/2021 1496 EDT This patient received an evaluation and medical screening exam for emergent medical conditions at the [facility] on 07/29/2021 Dr. Edwards was available as the supervising attending. Chief Complaint Back pain, leg pain HPI Teri Toribio is a 31 y.o. female with known L4-L5 disc herniation presenting to the emergency department with worsening pain, leg weakness, and new bowel incontinence symptoms. Patient has had progressive symptoms over the last 9 months including back pain, left leg pain, paresthesias, radicularpain, and weakness of the left leg. Has been on crutches for the last 2 to 3 months as this does help with ambulation due to severe pain with walking. In the last week has new onset of bowel symptomsincluding rectal pressure, pain with trying to move her bowels, and near incontinence of bowels, having difficulty getting to the bathroom in time as she feels she cannot control them. Denies urinary incontinence. Denies saddle anesthesia. Denies fever and chills. Denies history of IV drug use, recent procedures, and recent dental work. Patient has been working with the spine center, has appointment with Dr. Pride on 08/08/21. History was provided by: Patient, medical record Patient's pertinent PMH, FH, SH were reviewed and updated PRN. ROS A 10 point review of systems has been performed and is otherwise negative except as noted in the HPI. Physical Exam Vital Signs Temp: 36.8 ??C (98.2 ??F) Pulse: 66 Heart Rate: 66 BPM Resp: 18 SpO2: 100 % BP: 117/73 Nursing notes and vital signs were reviewed. Constitutional: Well appearing, well nourished and in no acute distress, nontoxic, well-appearing Neck: Full ROM, supple. Heart: RRR without MRG. Strong peripheral pulses Lungs: No Respiratory distress, clear to auscultation bilaterally. Skin: No overt rashes on exposed skin, non-diaphoretic. No pallor. No dusky appearance to lower extremities. MSK: No midline tenderness to thoracic or lumbar spine. No step-offs. No paraspinal muscle tenderness. Neuro: Lower extremities - 5/5 strength with hip flexion, hip extension, dorsiflexion of ankle, plantarflexion of ankle, flexion and extension of great toe, strength is symmetric bilaterally. Sensation is reportedly diminished to the left foot compared to the right with light touch. Normal bulk andtone of muscles. No saddle anesthesia. Psych: No agitation or overt thought disorder. Laboratory Results Labs Reviewed - No data to display Data Interpretation Imaging obtained was reviewed and independently interpreted: Imaging Results MR LUMBAR SPINE WO CONTRAST (Final result) Result time 07/30/21 09:55:02 Final result Impression: Progression of disc protrusion at L4-L5 with worsening spinal canal stenosis at this level, now severe, with compression of the descending nerve roots. I have personally reviewed the images and the above interpretation and agree with the findings. Narrative: EXAM: MRI LUMBAR SPINE WO CONTRAST HISTORY: Progressive left neuropathic pain, known L4-L5 disc bulge and stenosis, new bowel incontinence. TECHNIQUE: MRI of the lumbar spine without contrast. Structured report code: [id number] COMPARISON: MR lumbar spine 01/29/2021. FINDINGS: SURGICAL CHANGES: None. ALIGNMENT: No significant anteroretrolisthesis. BONES: No significant vertebral body height loss. No concerning lesions. INTERVERTEBRAL DISCS: Disc height loss and desiccation are present at L4-L5. SPINAL CANAL: The conus terminates normally at L1. No fluid collections. VISIBLE EXTRASPINAL SOFT TISSUES: A 1 cm cyst is seen in the right kidney. EVALUATION BY LEVEL: L1-L4: No spinal canal or neural foraminal stenosis. L4-L5: There has been interval progression of slightly asymmetric central and left paracentral discprotrusion resulting in severe spinal canal stenosis and subarticular zone narrowing, left greater than right resulting in compression of the descending nerve roots. No significant neural foraminal stenosis. L5-S1: No spinal canal or neural foraminal stenosis. Preliminary result Impression: Progression of disc extrusion at L4-L5 with worsening spinal canal stenosis at this level, now severe, with compression of the descending nerve roots. These findings were discussed by phone with KALYANI GUAJARDO by Dr. Princess Cervantes on 07/29/2021 10:09 PM. Narrative: PRELIMINARY RESIDENT REPORT EXAM: MRI LUMBAR SPINE WO CONTRAST HISTORY: Progressive left neuropathic pain, known L4-L5 disc bulge and stenosis, new bowel incontinence. TECHNIQUE: MRI of the lumbar spine without contrast. Structured report code: [id number] COMPARISON: MR lumbar spine 01/29/2021. FINDINGS: SURGICAL CHANGES: None. ALIGNMENT: No significant anteroretrolisthesis. BONES: No significant vertebral body height loss. No concerning lesions. INTERVERTEBRAL DISCS: Disc height loss and desiccation are present at L4-L5. SPINAL CANAL: The conus terminates normally at L1. No fluid collections. VISIBLE EXTRASPINAL SOFT TISSUES: A 1 cm cyst is seen in the right kidney. EVALUATION BY LEVEL: L1-L4: No spinal canal or neural foraminal stenosis. L4-L5: There has been interval progression of slightly asymmetric central and left paracentral discextrusion resulting in severe spinal canal stenosis and subarticular zone narrowing, left greater than right resulting in compression of the descending nerve roots. No significant neural foraminal stenosis. L5-S1: No spinal canal or neural foraminal stenosis. Procedures Procedures ED Course/Medical Decision Making A medical screening was performed. This is a 31 y.o. female presenting with progressive left-sided leg weakness and somewhat new bowelsymptoms in setting of known disc herniation at L4-L5. Concern for possible cauda equina syndrome. MRI of lumbar spine demonstrating progressive extrusion causing severe spinal canal stenosis at L4-L5, consistent with her clinical presentation. Plan for spine consultation. Signed out to rehan PA pending spine consult. While under my care in the Emergency Department, the patient's pain was managed to an adequate level weighing risk vs. benefit of medication. Clinical Impression Final diagnoses: None Disposition Signed out (see progress Notes) The patient's pain was managed to an adequate level weighing risk vs. benefit of further medications. Any further pain treatment will be at the discretion of the provider following up with the patient based on their clinical assessment. * Lesa Partida RN - 07/29/2021 1613 EDT Seen at spine clinic and referred to surgery, appointment pushed back. 2.5 months on crutches, leftfoot numb, dragging left. Referred by spine clinic for mRI * Shannon Murdock RN - 07/29/2021 6945 EDT MRI screening form faxed. documented in this encounter Plan of Treatment Upcoming Encounters Date Type Department Care Team (Late st Contact Info) Description 10/22/2023 13:25 EDT Hospital Encounter [facility] OR [address] [place] [phone] Walker Pride MD [address] [place] [phone] 10/22/2023 13:25 EDT - 10/22/2023 17:00 EDT Surgery [facility] OR [address] [place] [address] [phone] Walker Pride MD [address] [place] [phone] Left L34 decompression, redo left L45 decompression [78098 (CPT??)] 11/22/2023 10:00 EDT Post-op Visit [facility] Neurosurgery - [address] [phone] Madiha Hurtado NP [address] [place] [phone] Scheduled Procedures Name Priority Associated Diagnoses Date/Ti me LAMINECTOMY, SPINE, LUMBAR, 1 LEVEL, WITH FORAMINOTOMY OR FACETECTOMY Lumbar radiculopathy 10/22/2023 13:25 EDT LAMINECTOMY, SPINE, WITH FACETECTOMY AND FORAMINOTOMY, ADDITIONAL LEVEL FOLLOWING INITIAL LEVEL Lumbar radiculopathy 10/22/2023 13:25 EDT documented as of this encounter Procedures Procedure Name Priority Date/Time Associated Diagnosis Comments XR LUMBAR SPINE 4+ VIEWS STAT 07/30/2021 0:50 EDT MR LUMBAR SPINE WO CONTRAST STAT 07/29/2021 21:53 EDT documented in this encounter Results * XR LUMBAR SPINE 4+ VIEWS (07/30/2021 0:50 EDT) Anatomical Region Laterality Modality Computed Radiogr aphy 07/30/2021 9:36 EDT Impressions 07/30/2021 9:36 EDT No evidence of dynamic instability. I have personally reviewed the images and the above interpretation and agree with the findings. Narrative 07/30/2021 9:36 EDT XR LUMBAR SPINE 4+ VIEWS ??07/30/2021 12:35 AM CLINICAL HISTORY: Low back pain. TECHNIQUE: AP, lateral, extension, and flexion views of the lumbar spine were obtained. COMPARISON: Lumbar spine MR obtained the same day. FINDINGS: There are 5 nonrib-bearing lumbar type vertebral bodies No evidence of acute fracture. There is slight S-shaped curvature of the lumbar spine, as well as straightening of the normal lumbar lordosis. No significant cherelle or retrolisthesis. There is no evidence of dynamic instability. Minimal facet arthropathy is seen in the lower lumbar spine. The bowel gas pattern is nonobstructive. An IUD is present within the pelvis. Procedure Note Troy Tate MD - 07/30/2021 XR LUMBAR SPINE 4+ VIEWS 07/30/2021 12:35 AM CLINICAL HISTORY: Low back pain. TECHNIQUE: AP, lateral, extension, and flexion views of the lumbar spinewere obtained. COMPARISON: Lumbar spine MR obtained the same day. FINDINGS: There are 5 nonrib-bearing lumbar type vertebral bodies No evidence ofacute fracture. There is slight S-shaped curvature of the lumbar spine, aswell as straightening of the normal lumbar lordosis. No significant anteroor retrolisthesis. There is no evidence of dynamic instability. Minimalfacet arthropathy is seen in the lower lumbar spine. The bowel gas pattern is nonobstructive. An IUD is present within thepelvis. IMPRESSION No evidence of dynamic instability. I have personally reviewed the images and the above interpretation andagree with the findings. Alissa Negro MD IMG DIAGNOSTIC IMAGI NG ORDERABLES * MR LUMBAR SPINE WO CONTRAST (07/29/2021 21:53 EDT) Anatomical Region Laterality Modality Spine Magnetic Resonan ce 07/30/2021 9:55 EDT Impressions 07/30/2021 9:55 EDT Progression of disc protrusion at L4-L5 with worsening spinal canal stenosis at this level, now severe, with compression of the descending nerve roots. I have personally reviewed the images and the above interpretation and agree with the findings. Narrative 07/30/2021 9:55 EDT EXAM: MRI LUMBAR SPINE WO CONTRAST HISTORY: Progressive left neuropathic pain, known L4-L5 disc bulge and stenosis, new bowel incontinence. TECHNIQUE: MRI of the lumbar spine without contrast. Structured report code: [id number] COMPARISON: MR lumbar spine 01/29/2021. FINDINGS: SURGICAL CHANGES: None. ALIGNMENT: No significant anteroretrolisthesis. BONES: No significant vertebral body height loss. No concerning lesions. INTERVERTEBRAL DISCS: Disc height loss and desiccation are present at L4-L5. SPINAL CANAL: The conus terminates normally at L1. No fluid collections. VISIBLE EXTRASPINAL SOFT TISSUES: A 1 cm cyst is seen in the right kidney. EVALUATION BY LEVEL: L1-L4: No spinal canal or neural foraminal stenosis. L4-L5: There has been interval progression of slightly asymmetric central and left paracentral disc protrusion resulting in severe spinal canal stenosis and subarticular zone narrowing, left greater than right resulting in compression of the descending nerve roots. No significant neural foraminal stenosis. L5-S1: No spinal canal or neural foraminal stenosis. Procedure Note Miguel Ángel Nino MD - 07/30/2021 EXAM: MRI LUMBAR SPINE WO CONTRAST HISTORY: Progressive left neuropathic pain, known L4-L5 disc bulge andstenosis, new bowel incontinence. TECHNIQUE: MRI of the lumbar spine without contrast. Structured reportcode: [id number] COMPARISON: MR lumbar spine 01/29/2021. FINDINGS: SURGICAL CHANGES: None. ALIGNMENT: No significant anteroretrolisthesis. BONES: No significant vertebral body height loss. No concerning lesions. INTERVERTEBRAL DISCS: Disc height loss and desiccation are present at L4-L5. SPINAL CANAL: The conus terminates normally at L1. No fluid collections. VISIBLE EXTRASPINAL SOFT TISSUES: A 1 cm cyst is seen in the right kidney. EVALUATION BY LEVEL: L1-L4: No spinal canal or neural foraminal stenosis. L4-L5: There has been interval progression of slightly asymmetric centraland left paracentral disc protrusion resulting in severe spinal canalstenosis and subarticular zone narrowing, left greater than rightresulting in compression of the descending nerve roots. No significantneural foraminal stenosis. L5-S1: No spinal canal or neural foraminal stenosis. IMPRESSION Progression of disc protrusion at L4-L5 with worsening spinal canalstenosis at this level, now severe, with compression of the descendingnerve roots. I have personally reviewed the images and the above interpretation andagree with the findings. Kalyani Guajardo PA-C [facility] ORDERAB LES documented in this encounter Visit Diagnoses Diagnosis Back pain, unspecified back location, unspecified back pain laterality, unspecified chronicity- Primary Lumbar radiculopathy Thoracic or lumbosacral neuritis or radiculitis, unspecified documented in this encounter Administered Medications Inactive Administered Medications - up to 3 most recent administrations Medication Order MAR Action Action Date Dose Rate Site acetaminophen (TYLENOL) 500 mg tablet 1 dose, Starting on Wed07/30/21 at 0101, Until Wed07/30/21 at 0105 acetaminophen (TYLENOL) tablet 1,000 mg 1,000 mg, oral, NOW X1, 1 dose, On Wed07/30/21 at 0115, STAT Given 07/30/2021 1:05 EDT 1,000 mg gabapentin (NEURONTIN) capsule 300 mg 300 mg, oral, NOW X1, 1 dose, On Tu07/29/21 at 1815, STAT Given 07/29/2021 18:23 EDT 300 mg ibuprofen (MOTRIN) 600 mg tablet 1 dose, Starting on Wed07/30/21 at 0101, Until Wed07/30/21 at 0105 ibuprofen (MOTRIN) tablet 600 mg 600 mg, oral, NOW X1, 1 dose, On Wed07/30/21 at 0115, STAT Given 07/30/2021 1:05 EDT 600 mg LORazepam (ATIVAN) tablet 1 mg 1 mg, oral, Once (Time Specified), 1 dose, On Wed07/29/21 at 1815, Routine Given 07/29/2021 21:11 EDT 1 mg documented in this encounter Historical Medications * This list may reflect changes made after this encounter. Medication Sig Dispensed Refills Start Date End Date baclofen (LIORESAL) 10 mg tablet Take 10 mg by mouth 2 times daily. 07/03/2022 added in this encounter Active and Recently Administered Medications Times are shown in EDT. Scheduled Medication Order 07/28/2021 07/29/2021 07/30/2021 acetaminophen (TYLENOL) tablet 1,000 mg (COMPLETED) 1,000 mg, oral, NOW X1, 1 dose, On Wed07/30/21 at 0115, STAT 0105 (Given - Provid er: Marielos Perera) gabapentin (NEURONTIN) capsule 300 mg (COMPLETED) 300 mg, oral, NOW X1, 1 dose, On Wed07/29/21 at 1815, STAT 1823 (Given - Provider: Brittany Bianchi RN) ibuprofen (MOTRIN) tablet 600 mg (COMPLETED) 600 mg, oral, NOW X1, 1 dose, On Wed07/30/21 at 0115, STAT 0105 (Given - Provid er: Marielos Perera) LORazepam (ATIVAN) tablet 1 mg (COMPLETED) 1 mg, oral, Once (Time Specified), 1 dose, On Wed07/29/21 at 1815, Routine 2111 (Given - Provider: Herman Waggoner RN - Comment: premed for MRI) documented in this encounter Care Teams Advanced Analytics Associate Relationship Specialty Start Date End Date Bri Murphy PA-C [address] [place] [phone] PCP - General Internal Medicine - Primary Care 10/16/19 09/15/21 documented as of this encounter
--- OUTSIDE RECORDS SUMMARY | 2023-10-19 15:35 | XMS_ITS | Encounter Summary ---
Author Organization [facility] Address [address] [place] [address] Care Team Providers Care Booking Supervisor Name Role Phone Bri Murphy PA-C Primary Care Provider [phone] Galilea Mars APRON CLEANER Primary Care Provider [phone] Reason for Visit * Reason Comments Other Encounter Details Date Type Department Care Team (Late st Contact Info) Description 01/03/2020 [facility] Adult Primary Care - [place] [address] [place], [place] [address] Bri Murphy PA-C [address] [place] [phone] Other Social History Tobacco Use Types Packs/Day [...] take 1 tablet by mouth once daily 30 Tab 01/05/2020 04/02/2020 documented in this encounter Miscellaneous Notes * Telephone Encounter - Destinee Jama RN - 01/05/2020 1615 EDT Rx pended for 30 tab, 0 refills. * Telephone Encounter - Destinee Ann - 01/05/2020 1546 EDT Pt scheduled for Televideo appt cheyanne/ Bri on 01.11.20. Pt will need refill by Wednesday. * Telephone Encounter - Destinee Ann - 01/05/2020 1125 EDT LM and sent mychart msg. * Telephone Encounter - Gudelia Stockton RN - 01/04/2020 1751 EDT Per last ov note- Return in about 1 month (around 11/27/2019) for televideo, f30 for OCD/anxiety. Routed to [facility] to schedule and then route back * Telephone Encounter - Gudelia Ann - 01/04/2020 1527 EDT Requested Prescriptions Pending Prescriptions Disp Refills ??? sertraline (ZOLOFT) 25 mg tablet [Pharmacy Med Name: SERTRALINE HCL 25 MG TABLET] 30 Tab 1 Sig: take 1 tablet by mouth once daily Arabella Gaines Confirmed Pharmacy? [facility] Patient out of medication? Unknown Last Refill Date: 10.26. Refills left? (explain exceptions requiring early refill) No Recent Visits No visits were found meeting these conditions. Showing recent visits within past 540 days with a meds authorizing provider and meeting all other requirements Future Appointments No visits were found meeting these conditions. Showing future appointments within next 150 days with a meds authorizing provider and meeting all other requirements Future appointment: Other not scheduled, had televideo 10.26 with Bri Ann 01/04/2020 15:27 documented in this encounter Plan of Treatment Upcoming Encounters Date Type Department Care Team (Late st Contact Info) Description 10/22/2023 13:25 EDT Hospital Encounter [facility] OR [address] [place] [address] [phone] Walker Pride MD [address] [place] [phone] 10/22/2023 13:25 EDT - 10/22/2023 17:00 EDT Surgery [facility] OR [address] [place] [address] [phone] Walker Pride MD [address] [place] [phone] Left L34 decompression, redo left L45 decompression [55080 (CPT??)] 11/22/2023 10:00 EDT Post-op Visit [facility] Neurosurgery - [address] [address] Madiha Hurtado NP [address] [place] [phone] Scheduled Procedures Name Priority Associated Diagnoses [...] tablet Take 1 Tab by mouth daily. 10/27/2019 01/05/2020 documented as of this encounter Care Teams Booking Supervisor Relationship Specialty Start Date End Date Bri Murphy PA-C [address] [place] [phone] PCP - General Internal Medicine - Primary Care 10/16/19 09/15/21 Galilea Mars, APRON CLEANER [address] [place] [phone] PCP - General 09/16/21 documented as of this encounter
--- OUTSIDE RECORDS SUMMARY | 2023-10-19 15:35 | XMS_ITS | Encounter Summary ---
Author Organization [facility] Address [address] [place] [address] Care Team Providers Care Raymond Mill Operator Name Role Phone Miri Vilchis MD PhD Primary Care Provider Reason for Visit * Reason Onset Date Comments Results 05/06/2017 Encounter Details Date Type Department Care Team (Late st Contact Info) Description 05/06/2017 Telephone [facility] Adult Primary Care - [address] [address] Bri Murphy, AUGUSTINEC [address] [facility] [address] [place] [phone] Results Social History Tobacco Use Types [...] encounter Miscellaneous Notes * Telephone Encounter - Princess Ross RN - 05/06/2017 1006 EST Message reviewed with patient. All questions answered to patient's satisfaction. The patient indicates understanding of all matters discussed, and agrees with the plan. * Telephone Encounter - Bri Murphy PA - 05/06/2017 1204 EST Please let her know the pelvic ultrasound shows normal placement of her IUD. Her uterus and ovariesare normal. She may have had an ovarian cyst that has since resolved. If her pain continues for more than another week or worsens a CT scan would be the next diagnostic test of choice. documented in this encounter Plan of Treatment Upcoming Encounters Date Type Department Care Team (Late st Contact Info) Description 10/22/2023 13:25 EDT Hospital Encounter [facility] OR [address] [place] [address] [phone] Walker Pride MD [address] [place] [phone] 10/22/2023 13:25 EDT - 10/22/2023 17:00 EDT Surgery [facility] OR [address] [place] [address] [phone] Walker Pride MD [address] [place] [phone] Left L34 decompression, redo left L45 decompression [80922 (CPT??)] 11/22/2023 10:00 EDT Post-op Visit [facility] Neurosurgery - [address] [phone] Madiha Hurtado NP [address] [place] [phone] Scheduled Procedures Name Priority Associated Diagnoses Date/Ti me LAMINECTOMY, SPINE, LUMBAR, 1 LEVEL, WITH FORAMINOTOMY OR FACETECTOMY Lumbar radiculopathy 10/22/2023 13:25 EDT LAMINECTOMY, SPINE, WITH FACETECTOMY AND FORAMINOTOMY, ADDITIONAL LEVEL FOLLOWING INITIAL LEVEL Lumbar radiculopathy 10/22/2023 13:25 EDT documented as of this encounter Visit Diagnoses Not on filedocumented in this encounter Care Teams Raymond Mill Operator Relationship Specialty Start Date End Date Miri Vilchis MD PhD [address] [place] [phone] PCP - General 08/20/08 11/21/18 documented as of this encounter
--- OUTSIDE RECORDS SUMMARY | 2023-10-19 15:36 | XMS_ITS | Encounter Summary ---
Author Organization [facility] Address [address] [place] [address] Care Team Providers Care Motor Winder Name Role Phone Miri Vilchis MD PhD Primary Care Provider Encounter Details Date Type Department Care Team (Late st Contact Info) Description 10/31/2009 Office Visit [facility] Adult Primary Care - [address] [address] Miri Vilchis MD PhD [address] [place] [phone] Social History Tobacco Use Types [...] as of this encounter Progress Notes * Miri Vilchis MD PhD - 11/13/2009 8438 EDT Primary Care Internal Medicine [address] [place] [address] October 31, 2009 Dear /: I am writing regarding Ms Teri Toribio and requesting coverage for a referral to a director of graduate admissions.Teri is a 19-year-old woman who has been diagnosed with slow transit bowel disorder. She has seen gastroenterology specialists and has had a Sitz marker study. She was referred to a director of graduate admissions foroptimal treatment for this disorder and to help her in her recovery. This was not a nutritional prob finesse, but changes in nutrition can be made to help her recovery from the bowel disorder. I thank you in advance for your consideration in this matter. Please let me know if I can be of anyfurther assistance. Sincerely, Electronically Signed by Miri Vilchis MD,PhD 11/13/2009 22:47 Ryan Vilchis MD,PhDMiri Vilchis MD,PhD - Miri Vilchis MD,PhD - LW Job ID: SM Doc ID: [id number] Ext Doc ID: [id number] cc: Laura Savage* documented in this encounter Plan of Treatment Upcoming Encounters Date Type Department Care Team (Late st Contact Info) Description 10/22/2023 13:25 EDT Hospital Encounter [facility] OR [address] [place] [address] [phone] Walker Pride MD [address] [place] [phone] 10/22/2023 13:25 EDT - 10/22/2023 17:00 EDT Surgery [facility] OR [address] [place] [address] [phone] Walker Pride MD [address] [place] [phone] Left L34 decompression, redo left L45 decompression [12926 (CPT??)] 11/22/2023 10:00 EDT Post-op Visit [facility] Neurosurgery - [address] [phone] Madiha Hurtado, KARIME 111 [facility], [facility], [address] [place] [phone] Scheduled Procedures Name Priority Associated Diagnoses Date/Ti me LAMINECTOMY, SPINE, LUMBAR, 1 LEVEL, WITH FORAMINOTOMY OR FACETECTOMY Lumbar radiculopathy 10/22/2023 13:25 EDT LAMINECTOMY, SPINE, WITH FACETECTOMY AND FORAMINOTOMY, ADDITIONAL LEVEL FOLLOWING INITIAL LEVEL Lumbar radiculopathy 10/22/2023 13:25 EDT documented as of this encounter Visit Diagnoses Not on filedocumented in this encounter Care Teams Motor Winder Relationship Specialty Start Date End Date Miri Vilchis MD PhD [address] [place] [phone] PCP - General 08/20/08 11/21/18 documented as of this encounter
--- OUTSIDE RECORDS SUMMARY | 2023-10-19 15:36 | XMS_ITS | Encounter Summary ---
Author Organization [facility] Address [address] [place] [address] Care Team Providers Care Menhaden Vessel Pilot Name Role Phone Miri Vilchis MD PhD Primary Care Provider Reason for Visit * Reason Onset Date Comments Other 10/23/2009 Encounter Details Date Type Department Care Team (Late st Contact Info) Description 10/23/2009 Telephone [facility] Adult Primary Care - [address] [address] Miri Vilchis MD PhD [address] [place] [phone] Other Social History Tobacco Use Types Packs/Day [...] encounter Miscellaneous Notes * Telephone Encounter - Patt Willis - 11/14/2009 3268 EDT LETTER FAXED * Telephone Encounter - Miri Vilchis MD PhD - 11/14/2009 1116 EDT I just signed this letter in [facility]. Please have him send out. * Telephone Encounter - Lubna Evans - 10/23/2009 1623 EDT Please write a letter to [employer] [place] explaining with very specific information that Teri was referred to a measurement superintendent for medical recovery diagnosis not a nutritional diagnosis. Documentation is required to be sent to the Appeals Dept for ID#[id number] for reversal of the denial. Please fax the letter to the attention of Laura Savage, Oceanic Sciences Professor. Her fax # is , documented in this encounter Plan of Treatment Upcoming Encounters Date Type Department Care Team (Late st Contact Info) Description 10/22/2023 13:25 EDT Hospital Encounter [facility] OR [address] [place] [address] Walker Pride MD [address] [place] [address], [address] [phone] 10/22/2023 13:25 EDT - 10/22/2023 17:00 EDT Surgery [facility] OR [address] [place] [address] [phone] Walker Pride MD [address] [place] [phone] Left L34 decompression, redo left L45 decompression [29579 (CPT??)] 11/22/2023 10:00 EDT Post-op Visit [facility] Neurosurgery - [address] [phone] Madiha Hurtado, KARIME 111 [facility], [address] [place] [phone] Scheduled Procedures Name Priority Associated Diagnoses Date/Ti me LAMINECTOMY, SPINE, LUMBAR, 1 LEVEL, WITH FORAMINOTOMY OR FACETECTOMY Lumbar radiculopathy 10/22/2023 13:25 EDT LAMINECTOMY, SPINE, WITH FACETECTOMY AND FORAMINOTOMY, ADDITIONAL LEVEL FOLLOWING INITIAL LEVEL Lumbar radiculopathy 10/22/2023 13:25 EDT documented as of this encounter Visit Diagnoses Not on filedocumented in this encounter Care Teams Menhaden Vessel Pilot Relationship Specialty Start Date End Date Miri Vilchis MD PhD [address] [place] [phone] PCP - General 08/20/08 11/21/18 documented as of this encounter
--- OUTSIDE RECORDS SUMMARY | 2023-10-19 15:36 | XMS_ITS | Encounter Summary ---
Author Organization [facility] Address [address] [place] [address] Care Team Providers Care Ui Programmer Name Role Phone Nataly Vilchis MD PhD Primary Care Provider Encounter Details Date Type Department Care Team (Late st Contact Info) Description 12/24/2009 Results Only [facility] Gastroenterology - [address] [phone] Chay Hunter MD Social History Tobacco Use Types Packs/Day Years [...] Info) Description 10/22/2023 13:25 EDT Hospital Encounter [facility] OR [address] [place] [address] Walker Pride MD [address] [place] [address], [address] [place] [phone] 10/22/2023 13:25 EDT - 10/22/2023 17:00 EDT Surgery [facility] OR [address] [place], [place] [phone] Walker Pride MD 111 [facility], [address] [place] [phone] Left L34 decompression, redo left L45 decompression [66635 (CPT??)] 11/22/2023 10:00 EDT Post-op Visit [facility] Neurosurgery - [facility] [address] [place], [place] [phone] Madiha Hurtado NP 111 [facility], [address] [place] [phone] Scheduled Procedures Name Priority Associated Diagnoses Date/Ti me LAMINECTOMY, SPINE, LUMBAR, 1 LEVEL, WITH FORAMINOTOMY OR FACETECTOMY Lumbar radiculopathy 10/22/2023 13:25 EDT LAMINECTOMY, SPINE, WITH FACETECTOMY AND FORAMINOTOMY, ADDITIONAL LEVEL FOLLOWING INITIAL LEVEL Lumbar radiculopathy 10/22/2023 13:25 EDT documented as of this encounter Procedures Procedure Name Priority Date/Time Associated Diagnosis Comments SURGICAL PATHOLOGY Routine 12/25/2009 0:00 EDT documented in this encounter Results * SURGICAL PATHOLOGY (12/25/2009 0:00 EDT) Pathology Report: SURGICAL PATHOLOGY REPORT ? Reports generated via electronic interface contain original data; ? however they are lacking the format of the original report. ? Caution should be taken when reading/interpreti ng unformatted reports. ? Name: ? NAZARIO, TERI E ? Accession #: ? [id number] ? : ? 1990 (Age: 19) ??F ? Collect Date: ? 12/25/2009 ? Location: ? ENDO ? Receive Date: ? 12/25/2009 ? Provider: PETER L MAURIZIO MD ? Copy to: NATALY A KERRI MD ? Final Pathologic Diagnosis: ? A. ?Small intestine, duodenum, biopsy: ? 1. ?Duodenal mucosa without significant abnormalities. ? 2. ? Negative for Giardia and celiac disease. ? B. ?Small intestine, terminal ileum, biopsy: ? 1. ?Ileal mucosa without significant abnormalities. ? 2. ? No active or chronic ileitis. ? C. ?Colon, random, biopsy: ? 1. ?? Colonic mucosa with mild non-specific inflammatory changes. ??See ? comment. ? Comment: ? Random colon biopsies reveal mild architectural changes with occasional ? branched crypts and uneven crypt spacing. ??This is consistent with mild ? reparative changes. ??There is no evidence of active or chronic colitis. ??The ? changes are mild and of unclear significance. ??(Dr. Oviedo)/mms ? Document reviewed and electronically signed by: ? KINZA S BONY MD ? Report ??Date: 12/27/2009 16:01 ? By the signature above, the attending physician certifies that he/she has ? personally conducted a gross and/or microscopic examination of the described ? specimens and rendered or confirmed the above diagnosis. ? Specimen(s) Received: ? A. ?Duodenum (#1) ? B. ? Ileum (#2) ? C. ? Random colon (#3) ? Clinical History: ? Altered bowel function, weight loss; A. R/O sprue; B. R/O Crohn's; C. R/O ?? colitis ? Gross Description: ? Received in [facility]'s fixative labelled Teri Toribio and duodenum ?? are four marley-pink irregular tissue fragments ranging from 0.2 x 0.2 x 0.1 cm to 0.8 x 0.1 x 0.1 cm. ??The specimen is entirely submitted in (A1) and (A2). ? Received in [facility]'s fixative labelled Teri Toribio and bx terminal ? ileum are two marley-pink irregular tissue fragments measuring 0.5 x 0.3 x 0.1 cm and 0.7 x 0.3 x 0.1 cm. ??The specimen is entirely submitted as (B). ? Received in [facility]'s fixative labelled Teri Toribio and lopez random colon are five marley-pink irregular tissue fragments ranging from 0.2 x 0.2 x 0.2 cm to 0.9 x 0.1 x 0.1 cm. ??The specimen is entirely submitted as (C1) and (C2). ??(Dr. Hatch)/kmm ? End of Report ? [facility] 12/25/2009 12/25/2009 14: 26 EDT Chay Hunter MD PATHOLOGY ORDERABLES [facility] [address] [place] [address] documented in this encounter Visit Diagnoses Not on filedocumented in this encounter Care Teams Ui Programmer Relationship Specialty Start Date End Date Nataly Vilchis MD PhD [address] [place] [phone] PCP - General 08/20/08 11/21/18 documented as of this encounter
--- OUTSIDE RECORDS SUMMARY | 2023-10-19 15:36 | XMS_ITS | Encounter Summary ---
Author Organization [facility] Address [address] [place] [address] Care Team Providers Care Business Mgr Name Role Phone Miri Vilchis MD PhD Primary Care Provider Reason for Visit * Reason Onset Date Comments Medications Refill 05/09/2015 Encounter Details Date Type Department Care Team (Late st Contact Info) Description 05/09/2015 Refill [facility] Adult Primary Care - [address] [address] Miri Vilchis MD PhD [address] [place] [phone] Medications Refill Social History Tobacco Use [...] Dispensed Refills Start Date End Da te cyclobenzaprine (FLEXERIL) 5 mg tablet Take 1 tab every 6 hrs during the day, 2 tabs at bedtime prn neck pain 40 Tab 0 05/09/2015 05/03/2017 documented in this encounter Miscellaneous Notes * Telephone Encounter - Cookie Ronquillo RN - 05/09/2015 1552 EST Last prescription was 04/30/15, #40, no refills, no end date. A new order is pended. * Telephone Encounter - Pinky Rahman - 05/09/2015 1524 EST Medication(s) requested: Cyclobenzaprine, 5 mg 1 PO every 6 hours during the day, 2 HS PRN neck pain, #40, last refill 04.30.15. Pt says she was not able to get into PT until yesterday, pt says the med is definitely helping her at night, she ?if she can get a refill. Is the pt out of the medication?: Has two left for [facility] Pharmacy: [facility] Last OV if other than PCP: Date: 04.30.15 With: Bri Last OV w/PCP: 01.08.10 Next OV w/PCP: Visit date not found Pinky Rahman 05/09/2015 15:24 documented in this encounter Plan of Treatment Upcoming Encounters Date Type Department Care Team (Late st Contact Info) Description 10/22/2023 13:25 EDT Hospital Encounter [facility] OR [address] [place] [address] [phone] Walker Pride MD [address] [place] [phone] 10/22/2023 13:25 EDT - 10/22/2023 17:00 EDT Surgery [facility] OR [address] [place] [address] [phone] Walker Pride MD [address] [place] [phone] Left L34 decompression, redo left L45 decompression [86512 (CPT??)] 11/22/2023 10:00 EDT Post-op Visit [facility] Neurosurgery - [place] [address] [place], [place] [phone] Madiha Hurtado NP 111 [facility], [facility], [address] [place] [phone] Scheduled Procedures Name Priority Associated [...] Discontinue Reason Start Date End Da te cyclobenzaprine (FLEXERIL) 5 mg tablet Take 1 tab every 6 hrs during the day, 2 tabs at bedtime prn neck pain Reorder 04/30/2015 05/09/2015 documented as of this encounter Care Teams Business Mgr Relationship Specialty Start Date End Date Miri Vilchis MD PhD [address] [place] [phone] PCP - General 08/20/08 11/21/18 documented as of this encounter
--- OUTSIDE RECORDS SUMMARY | 2023-10-19 15:36 | XMS_ITS | Encounter Summary ---
Author Organization [facility] Address [address] [place] [address] Care Team Providers Care Interpreter Name Role Phone Miri Vilchis MD PhD Primary Care Provider Reason for Visit * Reason Onset Date Comments Medications Refill 06/30/2010 Encounter Details Date Type Department Care Team (Late st Contact Info) Description 06/30/2010 Refill [facility] Adult Primary Care - [address] [address] Miri Vilchis MD PhD [address] [place] [phone] Medications Refill Social History Tobacco Use [...] Notes * Telephone Encounter - Patt Willis P - 06/30/2010 1522 EDT PATIENT CALLED FOR REFILL ON SERTRALINE, INFORMED HER THAT SHE SHOULD HAVE A REFILL LEFT, SHE WILL CALL PHARMACY documented in this encounter Plan of Treatment Upcoming Encounters Date Type Department Care Team (Late st Contact Info) Description 10/22/2023 13:25 EDT Hospital Encounter [facility] OR [address] [place] [address] [phone] Walker Pride MD [address] [place] [phone] 10/22/2023 13:25 EDT - 10/22/2023 17:00 EDT Surgery [facility] OR [address] [place] [address] Walker Pride MD [address] [place] [phone] Left L34 decompression, redo left L45 decompression [[id number] (CPT??)] 11/22/2023 10:00 EDT Post-op Visit [facility] Neurosurgery - [address] [address] Madiha Hurtado NP [address] [place] [phone] Scheduled Procedures Name Priority Associated Diagnoses Date/Ti me LAMINECTOMY, SPINE, LUMBAR, 1 LEVEL, WITH FORAMINOTOMY OR FACETECTOMY Lumbar radiculopathy 10/22/2023 13:25 EDT LAMINECTOMY, SPINE, WITH FACETECTOMY AND FORAMINOTOMY, ADDITIONAL LEVEL FOLLOWING INITIAL LEVEL Lumbar radiculopathy 10/22/2023 13:25 EDT documented as of this encounter Visit Diagnoses Not on filedocumented in this encounter Care Teams Interpreter Relationship Specialty Start Date End Date Miri Vilchis MD PhD [address] [place] [phone] PCP - General 08/20/08 11/21/18 documented as of this encounter
--- OUTSIDE RECORDS SUMMARY | 2023-10-19 15:36 | XMS_ITS | Encounter Summary ---
Author Organization [facility] Address [address] [place] [address] Care Team Providers Care Saturation Diver Name Role Phone Miri Vilchis MD PhD Primary Care Provider Reason for Visit * Reason Comments Blood Sugar Problem Constipation Encounter Details Date Type Department Care Team (Late st Contact Info) Description 10/02/2009 11:30 EDT Nutrition [facility] Nutrition Services - [facility] [address] [place], [place] [phone] Luba Figueroa RD Social History Tobacco Use Types Packs/Day Years [...] - Inhaled Oxygen Concentration - - Weight 51.2 kg (112 lb 12.8 oz) 10/02/2009 1138 EDT Height 162.6 cm (5' 4) 10/02/2009 1138 EDT Body Mass Index 19.36 10/02/2009 1138 EDT documented in this encounter Progress Notes * Luba Figueroa - 10/02/2009 2517 EDT Nutrition Services Medical Nutrition Therapy Follow-Up Nutrition Assessment SUBJECTIVE: Patient is 19 y.o. female here for medical nutrition therapy for hypoglycemia, uninentional weight loss, constipation. Pt are here with Audie today, concerned about her continued weight loss and raising questions about possible disordered eating/exercise patterns. Previous goals/recommendations: Increase fiber to 25-30 grams a day + 8 cups water, fiber and protein each meal and snack to prevent hypoglycemia aprox q 3 hours. OBJECTIVE: Height: 162.6 cm (5' 4) Weight : 51.166 kg (112 lb 12.8 oz) Body mass index is 19.36 kg/(m^2). Last weight 08/06/09: 115lbs, BMI 19.74 ASSESSMENT: Progress toward previous goals and recommendations:goals met. Pt has doen an excellent job increasing fruits and vegetables as well as switching to whole grains. Ot is exercising a great deal: 15-18 miles a week + astrenght training 4 days a week 40-60 minutes each time. Estimate Audie is burning ~300-500 calories a day with execise, possible more. Audie estimates her calories intake to be 8033-4482 cals a day. Audie's parents concerned that she is over reporting or over estimating calories/day. Martha weight has dropped ~2.2lbs since our visit in July. Per 24 hour recall, audie's diet is veryhigh in fruits and vegetables. Generally ~2 serving dairy a day (yogurt/cottage cheese), 2 servingsof meat/day (lunch/dinner), and 3 servings of whole grains a day. Brent's diet is very low in fat. 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 PLAN: 1) 600-1200mg Ca+/d (depending on how much dairy is consumed) 2) 1000 units vit D3/day 3) MVM q day (Iron Free) 4) Rec Audie has a maintainance level of calories so she does not continue to loose weight: Rec 5266-7213 calories a day for current level of exercise to maintain current weight. 5) Rec addition of mono unsaturated fats and [place] 3 fatty acids (reviewed sources) 6) Rec increase CHO to 6 servings whole grains/day 7) Follow up visit in one month, will weigh patient. Educational materials provided: Mypyramid Materials and Individualized Nutrition Recommendations see plan, provided Macro Nutrient Calorie/% of total calories handout Method: Handout and Verbal Taught to: Patient and Family Barriers: None Outcomes:verbalized understanding Luba Fgiueroa RD documented in this encounter Plan of Treatment Upcoming Encounters Date Type Department Care Team (Late st Contact Info) Description 10/22/2023 13:25 EDT Hospital Encounter [facility] OR [address] [place] [address] [phone] Walker Pride MD [address] [place] [phone] 10/22/2023 13:25 EDT - 10/22/2023 17:00 EDT Surgery [facility] OR [address] [place] [address] [phone] Walker Pride MD [address] [place] [phone] Left L34 decompression, redo left L45 decompression [[id number] (CPT??)] 11/22/2023 10:00 EDT Post-op Visit [facility] Neurosurgery - [address] [phone] Madiha Hurtado NP [address] [place] [phone] Scheduled Procedures Name Priority Associated Diagnoses Date/Ti me LAMINECTOMY, SPINE, LUMBAR, 1 LEVEL, WITH FORAMINOTOMY OR FACETECTOMY Lumbar radiculopathy 10/22/2023 13:25 EDT LAMINECTOMY, SPINE, WITH FACETECTOMY AND FORAMINOTOMY, ADDITIONAL LEVEL FOLLOWING INITIAL LEVEL Lumbar radiculopathy 10/22/2023 13:25 EDT documented as of this encounter Visit Diagnoses Not on filedocumented in this encounter Care Teams Saturation Diver Relationship Specialty Start Date End Date Miri Vilchis MD PhD [address] [place] [phone] PCP - General 08/20/08 11/21/18 documented as of this encounter
--- OUTSIDE RECORDS SUMMARY | 2023-10-19 15:36 | XMS_ITS | Encounter Summary ---
Author Organization [facility] Address [address] [place] [address] Care Team Providers Care Steam Shovel Runner Name Role Phone Miri Vilchis MD PhD Primary Care Provider Reason for Visit * Reason Onset Date Comments Medications Refill 04/07/2010 Encounter Details Date Type Department Care Team (Late st Contact Info) Description 04/07/2010 Refill [facility] Adult Primary Care - [address] [address] Miri Vilchis MD PhD [address] [place] [phone] Medications Refill Social History Tobacco Use [...] End Da te sertraline (ZOLOFT) 50 mg tabletIndications:Anxiety, Depression Take 1 Tab by mouth daily. 30 Tab 3 04/07/2010 05/28/2010 documented in this encounter Miscellaneous Notes * Telephone Encounter - Miri Vilchis MD PhD - 04/08/2010 1311 EST Should have follow up in 3 months. * Telephone Encounter - Trisha Bryan RN - 04/08/2010 1155 EST Unsure from medlist if this is intermodal dispatcher medication or does patient need follow up visit * Telephone Encounter - Pinky Rahman - 04/07/2010 1147 EST Pt requesting refill documented in this encounter Plan of Treatment Upcoming Encounters Date Type Department Care Team (Late st Contact Info) Description 10/22/2023 13:25 EDT Hospital Encounter [facility] OR [address] [place] [address] [phone] Walker Pride MD [address] [place] [phone] 10/22/2023 13:25 EDT - 10/22/2023 17:00 EDT Surgery [facility] OR [address] [place] [address] [phone] Walker Pride MD [address] [place] [phone] Left L34 decompression, redo left L45 decompression [[id number] (CPT??)] 11/22/2023 10:00 EDT Post-op Visit [facility] Neurosurgery - [address] [phone] Madiha Hurtado NP [address] [place] [address] [place] [phone] Scheduled Procedures Name Priority Associated Diagnoses Date/Ti me LAMINECTOMY, SPINE, LUMBAR, 1 LEVEL, WITH FORAMINOTOMY OR FACETECTOMY Lumbar radiculopathy 10/22/2023 13:25 EDT LAMINECTOMY, SPINE, WITH FACETECTOMY AND FORAMINOTOMY, ADDITIONAL LEVEL FOLLOWING INITIAL LEVEL Lumbar radiculopathy 10/22/2023 13:25 EDT documented as of this encounter Visit Diagnoses Diagnosis Anxiety Anxiety state, unspecified Depression Depressive disorder, not elsewhere classified Lumbar radiculopathy Thoracic or lumbosacral neuritis or radiculitis, unspecified documented in this encounter Discontinued Medications Medication Sig Discontinue Reason Start Date End Da te sertraline (ZOLOFT) 50 mg tabletIndications:Anxiety ,Depression Take 1 Tab by mouth daily. Reorder 01/08/2010 04/07/2010 documented as of this encounter Care Teams Steam Shovel Runner Relationship Specialty Start Date End Date Miri Vilchis MD PhD [address] [place] [phone] PCP - General 08/20/08 11/21/18 documented as of this encounter
--- OUTSIDE RECORDS SUMMARY | 2023-10-19 15:36 | XMS_ITS | Encounter Summary ---
Author Organization [facility] Address [address] [place] [address] Care Team Providers Care Diet Assistant Name Role Phone Miri Vilchis MD PhD Primary Care Provider Reason for Visit * Reason Onset Date Comments Labs Only 12/09/2009 Encounter Details Date Type Department Care Team (Late st Contact Info) Description 12/09/2009 Telephone [facility] Adult Primary Care - [address] [address] Miri Vilchis MD PhD [address] [place] [phone] Labs Only Social History Tobacco Use Types Packs/Day [...] Encounter - Miri Vilchis MD PhD - 12/10/2009 1511 EDT I will wait to hear from Dr. Steven. Sarah's mom may want to call Dr. Steven and talk to him directly. * Telephone Encounter - Patt Willis - 12/10/2009 1316 EDT MOTHER CALLED, DR. STEVEN E-MAILED SARAH, DOES NOT FEEL THAT ADDITION LABS WERE NECESSARY, HE WILL BE CONTACTING YOU TO DISCUSS. MOTHER WOULD LIKE TO KNOW WHAT NEEDS TO BE DONE. SARAH HAS COLO SCHEDULED 12/25/09, AND OTHER F/[facility] DR. STEVEN. * Telephone Encounter - Miri Vilchis MD PhD - 12/09/2009 1640 EDT I will put lipase in [facility]. She should also have appt with me. * Telephone Encounter - Keyonna Allred - 12/09/2009 0917 EDT Pt was seen at ER last night - jaundice and increased serum lipase level and nausea and vomiting. She was instructed to f/u with this office in 2 days for repeat Lipase and that her hep series results would be available. Mother understanding from discharge note that pt just needs Lipase rechecked and is hoping you can just put an order in [facility] for her to go to the lab and have done tomorrow. Lipase pended but dx needs to be associated if you are ordering. documented in this encounter Plan of Treatment Upcoming Encounters Date Type Department Care Team (Late st Contact Info) Description 10/22/2023 13:25 EDT Hospital Encounter [facility] OR [address] [place] [address] Walker Pride MD 111 [facility], [address] [place] [phone] 10/22/2023 13:25 EDT - 10/22/2023 17:00 EDT Surgery [facility] OR [address] [place], [place] [address] Walker Pride MD 111 [facility], [address] [place] [phone] Left L34 decompression, redo left L45 decompression [[id number] (CPT??)] 11/22/2023 10:00 EDT Post-op Visit [facility] Neurosurgery - [facility] [address] [place], [place] [phone] Madiha Hurtado NP 111 [facility], [address] [place] [phone] Scheduled Procedures Name Priority Associated Diagnoses Date/Ti me LAMINECTOMY, SPINE, LUMBAR, 1 LEVEL, WITH FORAMINOTOMY OR FACETECTOMY Lumbar radiculopathy 10/22/2023 13:25 EDT LAMINECTOMY, SPINE, WITH FACETECTOMY AND FORAMINOTOMY, ADDITIONAL LEVEL FOLLOWING INITIAL LEVEL Lumbar radiculopathy 10/22/2023 13:25 EDT documented as of this encounter Visit Diagnoses Diagnosis Abdominal pain- Primary Abdominal pain, unspecified site Lumbar radiculopathy Thoracic or lumbosacral neuritis or radiculitis, unspecified documented in this encounter Care Teams Diet Assistant Relationship Specialty Start Date End Date Miri Vilchis MD PhD [address] [place] [phone] PCP - General 08/20/08 11/21/18 documented as of this encounter
--- OUTSIDE RECORDS SUMMARY | 2023-10-19 15:36 | XMS_ITS | Encounter Summary ---
Author Organization [facility] Address [address] [place] [address] Care Team Providers Care Bell Valet Name Role Phone Miri Vilchis MD PhD Primary Care Provider Reason for Visit * Reason Onset Date Comments Medications Refill 04/17/2010 Encounter Details Date Type Department Care Team (Late st Contact Info) Description 04/17/2010 Refill [facility] Adult Primary Care - [address] [address] Miri Vilchis MD PhD [address] [place] [phone] Medications Refill Social History Tobacco Use [...] Dispensed Refills Start Date End Da te norgestimate-ethinyl estradiol (MONONESSA, 28,) 0.25-35 mg-mcg per tablet Take 1 Tab by mouth daily. 1 Each 11 04/22/2010 09/08/2012 documented in this encounter Miscellaneous Notes * Telephone Encounter - Miri Vilchis MD PhD - 04/22/2010 1543 EST i approved the mononessa * Telephone Encounter - Trisha Bryan RN - 04/22/2010 1453 EST Call to patient patient wants prescriptions sent to [facility]. Spoke with pharmacist at [facility]. Patient was never on Escobar. Patient was last on mononessa. Does not match our med list. Ortho cyclen was last ordered by Destinee Montague in July of 2009 but patient is now changing pharmaces * Telephone Encounter - Cookie Ronquillo RN - 04/18/2010 1745 EST Triage will call pharmacies Wednesday to see which med she last had filled and at which pharmacy. * Telephone Encounter - Cookie Ronquillo RN - 04/18/2010 1744 EST Received a refill request from [place] [facility], Bhavesh Pope. The request is for Ortho Cyclen Low, #3 as directed #84. [facility] med list has this med but is it the Lo version? * Telephone Encounter - Cookie Ronquillo RN - 04/18/2010 1030 EST Med list and pts last OV note list ortho-cyclen. Called pt and she said she hasn't been taking OCP in a few months and couldn't remember which one she had been taking last. She didn't chose ESCOBAR for any particular reason. Order is still pended. What would you like to order? documented in this encounter Plan of Treatment Upcoming Encounters Date Type Department Care Team (Late st Contact Info) Description 10/22/2023 13:25 EDT Hospital Encounter [facility] OR [address] [place] [address] [phone] Walker Pride MD [address] [place] [phone] 10/22/2023 13:25 EDT - 10/22/2023 17:00 EDT Surgery [facility] OR [address] [place] [address] Walker Pride MD [address] [place] [phone] Left L34 decompression, redo left L45 decompression [[id number] (CPT??)] 11/22/2023 10:00 EDT Post-op Visit [facility] Neurosurgery - [address] [phone] Madiha Hurtado NP [address] [place] [phone] Scheduled Procedures Name Priority Associated Diagnoses Date/Ti me LAMINECTOMY, SPINE, LUMBAR, 1 LEVEL, WITH FORAMINOTOMY OR FACETECTOMY Lumbar radiculopathy 10/22/2023 13:25 EDT LAMINECTOMY, SPINE, WITH FACETECTOMY AND FORAMINOTOMY, ADDITIONAL LEVEL FOLLOWING INITIAL LEVEL Lumbar radiculopathy 10/22/2023 13:25 EDT documented as of this encounter Visit Diagnoses Not on filedocumented in this encounter Discontinued Medications Medication Sig Discontinue Reason Start Date End Da te norgestimate-ethinyl estradiol (ORTHO-CYCLEN) 0.25-35 mg-mcg per tablet Take 1 Tab by mouth daily. 07/25/2009 04/22/2010 documented as of this encounter Care Teams Bell Valet Relationship Specialty Start Date End Date Miri Vilchis MD PhD [address] [place] [phone] PCP - General 08/20/08 11/21/18 documented as of this encounter
--- OUTSIDE RECORDS SUMMARY | 2023-10-19 15:36 | XMS_ITS | Encounter Summary ---
Author Organization [facility] Address [address] [place] [address] Care Team Providers Care Industrial Conveyor Belt Repairer Name Role Phone Miri Vilchis MD PhD Primary Care Provider Reason for Visit * Reason Onset Date Comments Medications Refill 08/13/2010 Encounter Details Date Type Department Care Team (Late st Contact Info) Description 08/13/2010 Refill [facility] Adult Primary Care - [address] [address] Miri Vilchis MD PhD [address] [place] [phone] Medications Refill Social History Tobacco Use [...] Depression Take 1 Tab by mouth daily. Needs office visit before next refill. 30 Tab 1 08/13/2010 09/08/2012 documented in this encounter Miscellaneous Notes * Telephone Encounter - Josiah Pinky M. - 08/13/2010 1606 EDT Pt requesting refill for Sertraline. Xpld her last script stated she needed an OV before filling. She scheduled an OV w/Dr. Vilchis in September - that is the first that Dr. Vilchis had. I jean-paul'd it up, if ok please sign. documented in this encounter Plan of Treatment Upcoming Encounters Date Type Department Care Team (Late st Contact Info) Description 10/22/2023 13:25 EDT Hospital Encounter [facility] OR [address] [place] [address] [phone] Walker Pride MD [address] [place] [phone] 10/22/2023 13:25 EDT - 10/22/2023 17:00 EDT Surgery [facility] OR [address] [place] [address] [phone] Walker Pride MD [address] [place] [phone] Left L34 decompression, redo left L45 decompression [[id number] (CPT??)] 11/22/2023 10:00 EDT Post-op Visit [facility] Neurosurgery - [address] [phone] Madiha Hurtado NP [address] [place] [phone] Scheduled Procedures Name Priority Associated Diagnoses [...] End Da te sertraline (ZOLOFT) 50 mg tabletIndications:Anxiet y,Depression Take 1 Tab by mouth daily. Needs office visit before next refill. Reorder 08/08/2010 08/13/2010 documented as of this encounter Care Teams Industrial Conveyor Belt Repairer Relationship Specialty Start Date End Date Miri Vilchis MD PhD [address] [place] [phone] PCP - General 08/20/08 11/21/18 documented as of this encounter
--- OUTSIDE RECORDS SUMMARY | 2023-10-19 15:36 | XMS_ITS | Encounter Summary ---
Author Organization [facility] Address [address] [place] [address] Care Team Providers Care Senior Biostatistician Name Role Phone Miri Vilchis MD PhD Primary Care Provider Reason for Visit * Reason Onset Date Comments Medications Refill 02/28/2010 Encounter Details Date Type Department Care Team (Late st Contact Info) Description 02/28/2010 Refill [facility] Adult Primary Care - [address] [address] Miri Vilchis MD PhD [address] [place] [phone] Medications Refill Social History Tobacco Use [...] Dispensed Refills Start Date End Da te ondansetron (ZOFRAN-ODT) 4 mg disintegrating tabletIndications:Nausea Take 1 Tab by mouth every 8 hours as needed for Nausea. 15 Tab 0 02/28/2010 09/08/2012 documented in this encounter Miscellaneous Notes * Telephone Encounter - Trisha Bryan RN - 03/04/2010 1443 EST Patient needing to take this once a week. This is slight improvement Able to eat most days. Still having nausea off and on. Patient taking omeprazole every morning * Telephone Encounter - Miri Vilchis MD PhD - 03/04/2010 0931 EST Please check with pt to see if and how often she takes this. * Telephone Encounter - Cookie Ronquillo RN - 03/03/2010 1458 EST Left message for pt on voicemail. Calling to see if she requested this refill, if this is somethingshe takes often or is prescribed? Dr. Vilchis, Order is pended. * Telephone Encounter - Hortencia Sun - 02/28/2010 1516 EST Rec'd fax from pharmacy for refill documented in this encounter Plan of Treatment Upcoming Encounters Date Type Department Care Team (Late st Contact Info) Description 10/22/2023 13:25 EDT Hospital Encounter [facility] OR [address] [place] [address] [phone] Walker Pride MD [address] [place] [address], [address] [place] [phone] 10/22/2023 13:25 EDT - 10/22/2023 17:00 EDT Surgery [facility] OR [address] [place] [address] [phone] Walker Pride MD 111 [facility], [address] [place] [phone] Left L34 decompression, redo left L45 decompression [[id number] (CPT??)] 11/22/2023 10:00 EDT Post-op Visit [facility] Neurosurgery - [facility] [address] [place], [place] [phone] Madiha Hurtado NP 111 [facility], [address] [place] [phone] Scheduled Procedures Name Priority Associated Diagnoses Date/Ti me LAMINECTOMY, SPINE, LUMBAR, 1 LEVEL, WITH FORAMINOTOMY OR FACETECTOMY Lumbar radiculopathy 10/22/2023 13:25 EDT LAMINECTOMY, SPINE, WITH FACETECTOMY AND FORAMINOTOMY, ADDITIONAL LEVEL FOLLOWING INITIAL LEVEL Lumbar radiculopathy 10/22/2023 13:25 EDT documented as of this encounter Visit Diagnoses Diagnosis Nausea- Primary Nausea alone Lumbar radiculopathy Thoracic or lumbosacral neuritis or radiculitis, unspecified documented in this encounter Discontinued Medications Medication Sig Discontinue Reason Start Date End Da te ondansetron (ZOFRAN-ODT) 4 mg disintegrating tabletIndications:Nausea Take 1 Tab by mouth every 8 hours as needed for Nausea. Reorder 01/08/2010 02/28/2010 documented as of this encounter Care Teams Senior Biostatistician Relationship Specialty Start Date End Date Miri Vilchis MD PhD [address] [place] [phone] PCP - General 08/20/08 11/21/18 documented as of this encounter
--- OUTSIDE RECORDS SUMMARY | 2023-10-19 15:36 | XMS_ITS | Encounter Summary ---
Author Organization [facility] Address [address] [place] [address] Care Team Providers Care Mobile Ui Designer Name Role Phone Miri Vilchis MD PhD Primary Care Provider Encounter Details Date Type Department Care Team (Late st Contact Info) Description 09/08/2012 Results Only [facility] Adult Primary Care - [address] [address] Destinee Montague PA-C [address] [place] [phone] Social History Tobacco Use Types Packs/Day [...] [facility] OR [address] [place], [place] [phone] Walker Pride MD 111 [facility], [address] [place] [phone] 10/22/2023 13:25 EDT - 10/22/2023 17:00 EDT Surgery [facility] OR [address] [place], [place] [phone] Walker Pride MD 111 [facility], [facility], [facility] [address] [place] [phone] Left L34 decompression, redo left L45 decompression [00193 (CPT??)] 11/22/2023 10:00 EDT Post-op Visit [facility] Neurosurgery - [address] [phone] Madiha Hurtado NP 111 [facility], [facility], [address] [place] [phone] Scheduled Procedures Name Priority Associated Diagnoses Date/Ti me LAMINECTOMY, SPINE, LUMBAR, 1 LEVEL, WITH FORAMINOTOMY OR FACETECTOMY Lumbar radiculopathy 10/22/2023 13:25 EDT LAMINECTOMY, SPINE, WITH FACETECTOMY AND FORAMINOTOMY, ADDITIONAL LEVEL FOLLOWING INITIAL LEVEL Lumbar radiculopathy 10/22/2023 13:25 EDT documented as of this encounter Procedures Procedure Name Priority Date/Time Associated Diagnosis Comments PAP TEST- RESULT ONLY Routine 09/08/2012 0:00 EDT documented in this encounter Results * PAP TEST- RESULT ONLY (09/08/2012 0:00 EDT) Pathology Report: CYTOPATHOLOGY REPORT Reports generated via electronic interface contain original data; however they are lacking the format of the original report. Caution should be taken when reading/interpreti ng unformatted reports. Name: ? SARAH LANGE ? Accession #: ? [id number] ? : ? 1990 (Age: 22) ??F ?Collect Date: ? 09/08/2012 ? Location: ? [facility] ? Receive Date: ? 09/12/2012 ? Provider: DESTINEE CUETO Copy to: ? Final Report SPECIMEN ADEQUACY ? Satisfactory for Evaluation - transformation zone component absent GENERAL CATEGORIZATION ? Negative for Intraepithelial Lesion or Malignancy ?? Last Menstrual Period: 08/13/2012 Specimen/Source: ??Pap Test, Cervix/Endocervix, ThinPrep Imaging System with manual evaluation Document reviewed and electronically signed by: ? ZACH Carmona(ASCP) ? Report ??Date: 09/19/2012 12:39 HPV with Pap Test ? Date Ordered: ? 09/19/2012 ? Status: ?? Signed Out ?Date Complete: ? 09/21/2012 ? By: ??System Interface ? Date Reported: ? 09/21/2012 ? Interpretation RESULT: Negative for HPV. No E6 or E7 mRNA is detected from HPV types 16,18,31,33,35, 39,45,51,52,56,58, 59,66, and 68 by clay roaster mediated amplification. Comments Document reviewed and electronically signed by: ? System Interface ? Report date: 09/21/2012 By the signature above, the attending physician certifies that he/she has personally conducted a gross and/or microscopic examination of the described specimens and rendered or confirmed the above diagnosis. End of Report [facility] 09/08/2012 09/12/2012 Destinee Montague PA-C PATHOLOGY ORDERA POLINA [facility] [address] [place] [address] documented in this encounter Visit Diagnoses Not on filedocumented in this encounter Care Teams Mobile Ui Designer Relationship Specialty Start Date End Date Miri Vilchis MD PhD [address] [place] [phone] PCP - General 08/20/08 11/21/18 documented as of this encounter
--- OUTSIDE RECORDS SUMMARY | 2023-10-19 15:36 | XMS_ITS | Encounter Summary ---
Author Organization [facility] Address [address] [place] [address] Care Team Providers Care Direct Mail Coordinator Name Role Phone Miri Vilchis MD PhD Primary Care Provider Reason for Visit * Reason Onset Date Comments Medications Refill 05/28/2010 Encounter Details Date Type Department Care Team (Late st Contact Info) Description 05/28/2010 Refill [facility] Adult Primary Care - [address] [address] Miri Vilchis MD PhD [address] [place] [phone] Medications Refill Social History Tobacco Use [...] Tab by mouth daily. 30 Tab 1 05/28/2010 08/08/2010 documented in this encounter Miscellaneous Notes * Telephone Encounter - Patt Duong, RN - 05/28/2010 1547 EDT Given 2 months of Zoloft, and advised that patient needs OV. documented in this encounter Plan of Treatment Upcoming Encounters Date Type Department Care Team (Late st Contact Info) Description 10/22/2023 13:25 EDT Hospital Encounter [facility] OR [address] [place] [phone] Walker Pride MD [address] [place] [phone] 10/22/2023 13:25 EDT - 10/22/2023 17:00 EDT Surgery [facility] OR [address] [place] [address] [phone] Walker Pride MD [address] [place] [address] [address] [place] [phone] Left L34 decompression, redo left L45 decompression [58065 (CPT??)] 11/22/2023 10:00 EDT Post-op Visit [facility] Neurosurgery - [address] [phone] Madiha Hurtado NP [address] [place] [address] 5 [place] [phone] Scheduled Procedures Name Priority Associated Diagnoses Date/Ti [...] Take 1 Tab by mouth daily. Reorder 04/07/2010 05/28/2010 documented as of this encounter Care Teams Direct Mail Coordinator Relationship Specialty Start Date End Date Miri Vilchis MD PhD [address] [place] [phone] PCP - General 08/20/08 11/21/18 documented as of this encounter
--- OUTSIDE RECORDS SUMMARY | 2023-10-19 15:36 | XMS_ITS | Encounter Summary ---
Author Organization [facility] Address [address] [place] [address] Care Team Providers Care Residential Sales Manager Name Role Phone Miri Vilchis MD PhD Primary Care Provider Reason for Referral * Consult (Routine) - Closed Specialty Diagnoses / Procedures Referred By Contact Referred To Contact Gastroenterology and Hepatology Diagnoses Abdominal pain Bloating Emesis bloody Constipation Destinee Montague PA-C [address] [place] [phone] [facility] Gi [address] [place] [address] Referral ID Status Reason Start Date Expiration Date V isits Requested Visits Authorized [id number] Closed Specialty Services Required 11/29/2009 1 1 Question Answer Reason for Request: exacerbation of abdominal pain, now daily, bloating, chronic constipation, now with recent emesis, vomiting blood x 2, r/o UC vs. other pathology causing mutliple symptoms. Comments Please schedule as soon as available, pt has been having ongoing symptoms. Reason for Visit * Reason Comments Chest Pain f/u ER 11/27/09 Abdominal Pain Encounter Details Date Type Department Care Team (Late st Contact Info) Description 11/29/2009 14:30 EDT Office Visit [facility] Adult Primary Care - [address] [address] Destinee Montague PA-C [address] [place] [phone] Abdominal pain; Bloating; Emesis bloody; Constipation Social History Tobacco Use Types Packs/Day Years [...] Sign Reading Time Taken Comments Blood Pressure 88/64 11/29/2009 1432 EDT Pulse 60 11/29/2009 1432 EDT Temperature 36.7 ??C (98 ??F) 11/29/2009 1432 EDT Respiratory Rate - - Oxygen Saturation - - Inhaled Oxygen Concentration - - Weight 51.7 kg (114 lb) 11/29/2009 1432 EDT Height - - Body Mass Index 19.57 10/02/2009 1138 EDT documented in this encounter Progress Notes * Destinee Montague PA-C - 11/29/2009 1446 EDT Images from the original note were not included. Subjective: Patient ID: Teri Toribio is an 19 y.o. female. Chief Complaint Patient presents with ??? Chest Pain f/u ER 11/27/09 ??? Abdominal Pain HPI Comments: Pt had sudden chest pain, vomiting on 11/20/09. Pt was vomiting bright red blood. Pt went to ER and she was told that she needed to f/u. Pt was told that she needed to f/u here. Pt has been writing down all the sympotms she has had. Pt has been having constipation that is tx with miralax tid. Pt has strong odor and green in color. Pt has on and off stomach pain. Pt has thispain prior to a BM. Pt feels that she becomes full fast. Pt feels that her stomach becomes full andbloated. Pt has a cystoscopy scheduled on 01/07/10. Pt also has dyspareunia. Pt has not gained wt. Pt has added calories. Pt has been waking up sweating. Pt has felt cold all the time. Pt feels that she often feels light headed and dizzy at times. Pt has been seeing formulation scientist x 1 but insurance willnot cover this. Pt is also in counseling for some of her symtpoms which as helped. Pt is having BMs approx every other day. Pt has been having GI symptoms x months. Pt now has intermittent pain in lower abdomen. pt has had early and heavy menses. Pt has heavier flow. Pt notes that this has occurred x 2 menses. Chest Pain Associated symptoms include abdominal pain and malaise/fatigue. Pertinent negatives include no nausea or vomiting (hx of vomiting and was seen in ER). Abdominal Pain Associated symptoms include constipation. Pertinent negatives include no diarrhea, melena, nausea or vomiting (hx of vomiting and was seen in ER). Patient Active Problem List Diagnoses Code ??? Contraceptive management V25.9B ??? Constipation by delayed colonic transit 564.01A No past medical history on file. Current outpatient prescriptions ordered prior to encounter Medication Sig Dispense Refill ??? ondansetron (ZOFRAN-ODT) 4 mg disintegrating tablet Take 1 Tab by mouth every 8 hours as neededfor Nausea. 10 Tab 0 ??? norgestimate-ethinyl estradiol (ORTHO-CYCLEN) 0.25-35 mg-mcg per tablet Take 1 Tab by mouth daily. 1 Package 11 ??? PEG 3350-Electrolytes (MIRALAX) 17 gram packet Take 17 g by mouth 3 times daily. No Known Allergies Social History Substance Use Topics ??? Tobacco Use: Never ??? Alcohol Use: No Review of Systems Constitutional: Positive for malaise/fatigue. Respiratory: Negative. Cardiovascular: Negative for chest pain (no further Chest pain). Gastrointestinal: Positive for abdominal pain and constipation. Negative for heartburn, nausea, vomiting (hx of vomiting and was seen in ER), diarrhea, blood in stool and melena. Neurological: Negative. - See HPI Objective: BP 88/64 Pulse 60 Temp(Src) 36.7 ??C (98 ??F) (Oral) Wt 51.71 kg (114 lb) Physical Exam Constitutional: She appears well-developed. No distress. Cardiovascular: Normal rate and regular rhythm. Pulmonary/Chest: Effort normal and breath sounds normal. Abdominal: She exhibits no shifting dullness, no distension, no pulsatile liver, no fluid wave, no abdominal bruit, ascites, no pulsatile midline mass and no mass. There is no organomegaly. Generalized and tenderness is present. She has no guarding, no CVA tenderness, no pain at McBurney's point and no Olivas's sign. Skin: She is not diaphoretic. 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 Vilchis in 1mo Over 50% of this 25min visit with at least 18min spent in direct counseling with pt.on above issues. Diagnostic recommendations, risks and benefits of treatment, treatment recommendations and importance of compliance reviewed with patient. Patient education provided. documented in this encounter Plan of Treatment Upcoming Encounters Date Type Department Care Team (Late st Contact Info) Description 10/22/2023 13:[address] [facility] OR [address] [place] [phone] Walker Pride MD [address] [place] [phone] 10/22/2023 13:25 EDT - 10/22/2023 17:[address] [facility] OR [address] [place] [phone] Walker Pride MD [address] [place] [address] [place] [phone] Left L34 decompression, redo left L45 decompression [43667 (CPT??)] 11/22/2023 10:00 EDT Post-op Visit [facility] Neurosurgery - [address] [address] Madiha Hurtado NP 111 [facility], [address] [place] [phone] Scheduled Procedures Name Priority Associated Diagnoses Date/Ti me LAMINECTOMY, SPINE, LUMBAR, 1 LEVEL, WITH FORAMINOTOMY OR FACETECTOMY Lumbar radiculopathy 10/22/2023 13:25 EDT LAMINECTOMY, SPINE, WITH FACETECTOMY AND FORAMINOTOMY, ADDITIONAL LEVEL FOLLOWING INITIAL LEVEL Lumbar radiculopathy 10/22/2023 13:25 EDT Scheduled Referrals Name Type Priority Associated Diagnoses Order Schedule AMB CONSULT GASTROENTEROLOGY Outpatient Referral Routine Abdominal pain Bloating Emesis bloody Constipation Ordered: 11/29/2009 documented as of this encounter Visit Diagnoses Diagnosis Abdominal pain Abdominal pain, unspecified site Bloating Flatulence, eructation, and gas pain Emesis bloody Hematemesis Constipation Unspecified constipation Lumbar radiculopathy Thoracic or lumbosacral neuritis or radiculitis, unspecified documented in this encounter Care Teams Residential Sales Manager Relationship Specialty Start Date End Date Miri Vilchis MD PhD [address] [place] [phone] PCP - General 08/20/08 11/21/18 documented as of this encounter
--- OUTSIDE RECORDS SUMMARY | 2023-10-19 15:36 | XMS_ITS | Encounter Summary ---
Author Organization [facility] Address [address] [place] [address] Care Team Providers Care Supervisor Doping Name Role Phone Miri Vilchis MD PhD Primary Care Provider Encounter Details Date Type Department Care Team (Late st Contact Info) Description 02/01/2015 13:30 EST Immunization [facility] Adult Primary Care - [address] [place], [place] [phone] Unknown, Provider, Roger Pittman MD [address] [facility] [address] [place], [place] [phone] Kelly Cordero MD Hall, Alison M, PA-C [address] [place] [phone] Flu, Shot Need for immunization against influenza (Primary Dx) Social History Tobacco Use Types [...] Hospital Encounter [facility] OR [address] [place] [phone] Walker Pride MD [address] [place] [phone] 10/22/2023 13:25 EDT - 10/22/2023 17:00 EDT Surgery [facility] OR [address] [place] [phone] Walker Pride MD [address] [place] [phone] Left L34 decompression, redo left L45 decompression [04991 (CPT??)] 11/22/2023 10:00 EDT Post-op Visit [facility] Neurosurgery - [address] [phone] Madiha Hurtado NP [address] [place] [phone] Scheduled Procedures Name Priority Associated Diagnoses Date/Ti me LAMINECTOMY, SPINE, LUMBAR, 1 LEVEL, WITH FORAMINOTOMY OR FACETECTOMY Lumbar radiculopathy 10/22/2023 13:25 EDT LAMINECTOMY, SPINE, WITH FACETECTOMY AND FORAMINOTOMY, ADDITIONAL LEVEL FOLLOWING INITIAL LEVEL Lumbar radiculopathy 10/22/2023 13:25 EDT documented as of this encounter Visit Diagnoses Diagnosis Need for immunization against influenza- Primary Need for prophylactic vaccination and inoculation against influenza Lumbar radiculopathy Thoracic or lumbosacral neuritis or radiculitis, unspecified documented in this encounter Orders Immunization/Injection Count Last Ordered Date First Ordered Date INFLUENZA VACCINE =>3YO QUAD PRESERVATIVE FREE IM 1 02/01/2015 documented in this encounter Care Teams Supervisor Doping Relationship Specialty Start Date End Date Miri Vilchis MD PhD [address] [place] [phone] PCP - General 08/20/08 11/21/18 documented as of this encounter
--- OUTSIDE RECORDS SUMMARY | 2023-10-19 15:36 | XMS_ITS | Encounter Summary ---
Author Organization [facility] Address [address] [place] [address] Care Team Providers Care Hand Buffing Wheel Former Name Role Phone Miri Vilchis MD PhD Primary Care Provider Encounter Details Date Type Department Care Team (Latest Contact Info) Description 05/05/2017 11:17 EST - 05/05/2017 23:59 EST Hospital Encounter [facility] [address] [place] [address] Bri Murphy PA-C [address] [facility] [address] [place] [phone] Discharge Disposition: Auto Discharge Social History Tobacco [...] as of this encounter Discharge Diagnoses Diagnosis R10.31 Right lower quadrant pain-R10.31[ICD-10-CM] documented in this encounter Medications at Time of Discharge Medication Sig Dispensed Refills Start Date End Date levonorgestreL (MIRENA) 20 mcg/24 hours (8 yrs) 52 mg IUD 1 Each by intrauterine route Once. 2017 Multivitamins with Minerals tablet tablet Take 1 Tablet by mouth daily. documented as of this encounter Discharge Disposition Disposition Code Departure Means Destination Auto Discharge Home documented in this encounter Plan of Treatment Upcoming Encounters Date Type Department Care Team (Late st Contact Info) Description 10/22/2023 13:25 EDT Hospital Encounter [facility] OR [address] [place] [phone] Walker Pride MD [address] [place] [phone] 10/22/2023 13:25 EDT - 10/22/2023 17:00 EDT Surgery [facility] OR [address] [place] [address] [phone] Walker Pride MD [address] [place] [phone] Left L34 decompression, redo left L45 decompression [48156 (CPT??)] 11/22/2023 10:00 EDT Post-op Visit [facility] Neurosurgery - [address] [phone] Madiha Hurtado NP [address] [place] [phone] Scheduled Procedures Name Priority Associated Diagnoses Date/Ti me LAMINECTOMY, SPINE, LUMBAR, 1 LEVEL, WITH FORAMINOTOMY OR FACETECTOMY Lumbar radiculopathy 10/22/2023 13:25 EDT LAMINECTOMY, SPINE, WITH FACETECTOMY AND FORAMINOTOMY, ADDITIONAL LEVEL FOLLOWING INITIAL LEVEL Lumbar radiculopathy 10/22/2023 13:25 EDT documented as of this encounter Visit Diagnoses Not on filedocumented in this encounter Care Teams Hand Buffing Wheel Former Relationship Specialty Start Date End Date Miri Vilchis MD PhD [address] [place] [phone] PCP - General 08/20/08 11/21/18 documented as of this encounter
--- OUTSIDE RECORDS SUMMARY | 2023-10-19 15:36 | XMS_ITS | Encounter Summary ---
Author Organization [facility] Address [address] [place] [address] Care Team Providers Care Internal Medicine Veterinary Technician Name Role Phone Miri Vilchis MD PhD Primary Care Provider Reason for Referral * PT/OT/ST (Routine) - Closed Specialty Diagnoses / Procedures [facility] Referred To Contact Diagnoses Acute strain of neck muscle, initial encounter Katarina Murphy PA-C [id number] [place] [address] Referral ID Status Reason Start Date Expiration Date V isits Requested Visits Authorized [id number] Closed Specialty Services Required 04/30/2015 1 1 Question Answer Reason for Request: Acute neck strain with facet joint locking. Evaluate & Rx. Needs good HEP. Reason for Visit * Reason Comments Neck Pain Encounter Details Date Type Department Care Team (Late st Contact Info) Description 04/30/2015 14:15 EST Office Visit [facility] - [address] [id number] Katarina Murphy PA-C [id number] [place] [address] Acute strain of neck muscle, initial encounter (Primary Dx) Social History Tobacco Use Types [...] Reading Time Taken Comments Blood Pressure 110/80 04/30/2015 1414 EST Left a rma Pulse 70 04/30/2015 1414 EST Temperature 37 ??C (98.6 ??F) 04/30/2015 1414 EST Respiratory Rate 14 04/30/2015 1414 EST Oxygen Saturation - - Inhaled Oxygen Concentration - - Weight 78 kg (172 lb) 04/30/2015 1414 EST w/boot s Height 165.1 cm (5' 5) 04/30/2015 1414 EST Body Mass Index 28.62 04/30/2015 1414 EST documented in this encounter Ordered Prescriptions Prescription Sig Dispensed Refills Start Date End Da te cyclobenzaprine (FLEXERIL) 5 mg tablet Take 1 tab every 6 hrs during the day, 2 tabs at bedtime prn neck pain 40 Tab 0 04/30/2015 05/09/2015 documented in this encounter Progress Notes * Percy Mcgregor MD - 05/02/2015 1759 EST Note reviewed and agree. I was available in the office suite during this encounter. Percy Mcgregor MD * Katarina Murphy PA - 04/30/2015 1419 EST Subjective: Patient ID: Teri Toribio is an 24 y.o. female. Chief Complaint Patient presents with ??? Neck Pain HPI Comments: Teri reports on Wednesday she was helping her potbellied billings get into the house when it slipped backward so she caught it and pushed it forward. He weighs 80 pounds. She felt an immediate pull/pain in the center of her neck. It stiffened up immediately. She did ice it. It became more painful during the day so she was advised to get it evaluated. She went to [facility] in [place]. Despite no significant trauma a CT scan was done of her neck which was of course normal. She was prescribed cyclobenzaprine 5 mg and told to take ibuprofen. She reports the cyclobenzaprine does help but she was worried about the ibuprofen so stopped taking it. She was also given a soft collar to usewhich she does use periodically but does not leave it on multimedia manager. 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 She continues to have pain and decreased mobility especially when trying to turn her head to the left. The pain is localized in her neck and may radiate to the top of her shoulders but not into her arms. No numbness or tingling. She tried to get in with physical therapy in [place] but their first available was on 05/13. Patient Active Problem List Diagnosis ??? Contraceptive management ??? Constipation by delayed colonic transit ??? Obsessive-compulsive disorder Outpatient Prescriptions Marked as Taking for the 04/30/15 encounter (Office Visit) with Katarina Murphy PA Medication Sig Dispense Refill ??? Multivitamins with Minerals tablet tablet Take 1 Tab by mouth daily. ROS - unremarkable except as noted in the HPI Objective: BP 110/80 mmHg Pulse 70 Temp(Src) 37 ??C (98.6 ??F) (Tympanic) Resp 14 Ht 165.1 cm (65) Wt 78.019 kg (172 lb) BMI 28.62 kg/m2 LMP 04/28/2015 (Exact Date) Physical Exam Constitutional: She appears well-developed and well-nourished. Musculoskeletal: Neck: Head posture in a slight left side bent and right rotation position. Minimally tender to the 3-C4 region but more tender to the associated facet joint on the left side. Very tense musculature on the left side of her neck. Tender bilateral to upper trapezius, levator and scalenes. Decreased AROM into full extension, bilateral side bending and rotation secondary to pain. Negative Spurling. 5/5 MMT bilateral upper extremity. Assessment / Plan: Teri was seen today for neck pain. Diagnoses and all orders for this visit: Acute strain of neck muscle, initial encounter Musculoskeletal in nature with possible locked facet joints. Okay to continue to use a soft collar for very short periods of time. Use the cyclobenzaprine as directed and supplement with ibuprofen as needed. Moist heat. She will check different towns to see if she can get into physical therapy sooner. Orders: - Amb Consult/Follow Up Physical Therapy - cyclobenzaprine (FLEXERIL) 5 mg tablet; Take 1 tab every 6 hrs during the day, 2 tabs at bedtime prn neck pain ROM Sánchez 04/30/2015 14:44 documented in this encounter Miscellaneous Notes * Addendum Note - Katarina Murphy PA - 05/02/2015 1502 ESTAddended by: KATARINA MURPHY on: 05/02/2015 15:02 Modules accepted: Level of Service documented in this encounter Plan of Treatment Upcoming Encounters Date Type Department Care Team (Late st Contact Info) Description 10/22/2023 13:25 EDT Hospital Encounter [facility] OR [address] [place] [phone] Walker Pride MD [address] [place] [phone] 10/22/2023 13:25 EDT - 10/22/2023 17:00 EDT Surgery [facility] [place] [address] [place] [address] [phone] Walker Pride MD [address] [place] [phone] Left L34 decompression, redo left L45 decompression [23077 (CPT??)] 11/22/2023 10:00 EDT Post-op Visit [facility] - [address] [phone] Madiha Hurtado NP [address] [place] [phone] Scheduled Procedures Name Priority Associated Diagnoses Date/Ti me LAMINECTOMY, SPINE, LUMBAR, 1 LEVEL, WITH FORAMINOTOMY OR FACETECTOMY Lumbar radiculopathy 10/22/2023 13:25 EDT LAMINECTOMY, SPINE, WITH FACETECTOMY AND FORAMINOTOMY, ADDITIONAL LEVEL FOLLOWING INITIAL LEVEL Lumbar radiculopathy 10/22/2023 13:25 EDT Scheduled Referrals Name Type Priority Associated Diagnoses Orde r Schedule AMB CONS/FOLLOW UP PHYSICAL THERAPY Outpatient Referral Routine Acute Strain Of Neck Muscle, Initial Encounter Ordered: 04/30/2015 documented as of this encounter Visit Diagnoses Diagnosis Acute strain of neck muscle, initial encounter- Primary Lumbar radiculopathy Thoracic or lumbosacral neuritis or radiculitis, unspecified documented in this encounter Discontinued Medications Medication Sig Discontinue Reason Start Date End Da te citalopram (CELEXA) 20 mg tablet 1/2 tab po daily x 1week, then 1 tab po daily Patient Stopped Taking 09/08/2012 04/30/2015 ketoconazole (NIZORAL) 2 % cream Apply to affected area bid for up to 2 weeks Patient Stopped Taking 09/08/2012 04/30/2015 documented as of this encounter Historical Medications * This list may reflect changes made after this encounter. Medication Sig Dispensed Refills Start Date End Date Multivitamins with Minerals tablet tablet Take 1 Tablet by mouth daily. added in this encounter Care Teams Internal Medicine Veterinary Technician Relationship Specialty Start Date End Date Miri Vilchis MD PhD [address] [place] [phone] PCP - General 08/20/08 11/21/18 documented as of this encounter
--- OUTSIDE RECORDS SUMMARY | 2023-10-19 15:36 | XMS_ITS | Encounter Summary ---
Author Organization [facility] Address [address] [place] [address] Care Team Providers Care Tile And Marble Setter Name Role Phone Nataly Vilchis MD PhD Primary Care Provider Reason for Visit * Reason Comments Emesis Pt reports sudden on set of vomiting 1 hour ago w/ associated cp- reports multiple episodes of vomiting in last hour-now w/ some streaking of blood. + dizziness and palor. Encounter Details Date Type Department Care Team (Late st Contact Info) Description 11/27/2009 21:46 EDT - 11/28/2009 0:40 EDT Emergency [facility] Emergency Department - Main [address] [phone] Rom Jackson MD [address] [facility], Level [address] [place] [phone] Emergency, MD Jamie Vomiting Discharge Disposition: Home or Self Care Social [...] Sign Reading Time Taken Comments Blood Pressure 101/60 11/28/2009 0040 EDT Pulse 69 11/28/2009 0040 EDT Temperature 35.1 ??C (95.2 ??F) 11/27/2009 2155 EDT Respiratory Rate 16 11/28/2009 0040 EDT Oxygen Saturation 100% 11/28/2009 004 EDT Inhaled Oxygen Concentration - - Weight - - Height - - Body Mass Index - - documented in this encounter Discharge Instructions * Discharge Instructions* Rom Jackson MD - 11/28/2009 0:32 EDT Images from the original note were not included. [facility] Patient Instructions Return if symptoms worsen or new symptoms develop Followup primary care physician Take medications as instructed Nausea and Vomiting: After Your Visit Your Care Instructions When you are nauseated, you may feel weak and sweaty and notice a lot of saliva in your mouth. Nausea often leads to vomiting. Most of the time you do not need to worry about nausea and vomiting, butthey can be signs of other illnesses. Two common causes of nausea and vomiting are stomach flu and food poisoning. Nausea and vomiting from viral stomach flu will usually start to improve within 24 hours. Nausea and vomiting from food poisoning may last from 12 to 48 hours. Follow-up care is a agarwal part of your treatment and safety. Be sure to make and go to all appointments, and call your doctor if you are having problems. It???s also a good idea to know your test results and keep a list of the medicines you take. How can you care for yourself at home? ?? After vomiting has stopped for 1 hour, drink 1 ounce of a clear liquid every 20 minutes for 1 hour. Clear liquids include apple or grape juice mixed with an equal amount of water, rehydration or sports drinks, weak tea with sugar, clear broth, and Jell-O. Do not drink citrus juices or lemonade. If you have kidney, heart, or liver disease and have to limit fluids, talk with your doctor before you increase the amount of fluids you drink. ?? If you keep vomiting, sip a rehydration or sports drink. It is important to keep enough fluids in your body. ?? Rest in bed until you feel better. ?? When you are feeling better, begin to eat clear soups, mild foods, and liquids until all symptoms are gone for 12 to 48 hours. Jell-O, dry toast, crackers, and cooked cereal are good choices. ?? Suck on peppermint candy or chew peppermint gum. Peppermint often helps an upset stomach. When should you call for help? Call your doctor now or seek immediate medical care if: ?? You have signs of needing more fluids. You have sunken eyes and a dry mouth, and you pass only alittle dark urine. ?? You have a fever with a stiff neck or a severe headache. ?? You are sensitive to light or feel very sleepy or confused. ?? You have new or worsening belly pain. ?? You have a new or higher fever. ?? You vomit blood or what looks like coffee grounds. Watch closely for changes in your health, and be sure to contact your doctor if: ?? The vomiting lasts longer than 2 days. ?? You vomit more than 10 times in 1 day. Where can you learn more? Go to www.[employer].net/fahc Enter H591 in the search box to learn more about Nausea and Vomiting: After Your Visit. ?? 2005 - 2008 [employer]. Care instructions adapted under license by [facility], [facility] . This care instruction is for use with your licensed healthcare professional. If you have questions about a medical condition or this instruction, always ask your healthcare professional. [employer] disclaims any warranty or liability for your use of this information. documented in this encounter Medications at Time of Discharge Medication Sig Dispensed Refills Start Date End Date norgestimate-ethinyl estradiol (ORTHO-CYCLEN) 0.25-35 mg-mcg per tablet Take 1 Tab by mouth daily. 1 Package 11 07/25/2009 04/22/2010 ondansetron (ZOFRAN-ODT) 4 mg disintegrating tablet Take 1 Tab by mouth every 8 hours as needed for Nausea. 10 Tab 0 11/28/2009 01/08/2010 PEG 3350-Electrolytes (MIRALAX) 17 gram packetIndications:Constipa tion by delayed colonic transit Take 17 g by mouth 3 times daily. 09/08/2012 documented as of this encounter Ordered Prescriptions Prescription Sig Dispensed Refills Start Date End Da te ondansetron (ZOFRAN-ODT) 4 mg disintegrating tablet Take 1 Tab by mouth every 8 hours as needed for Nausea. 10 Tab 0 11/28/2009 01/08/2010 documented in this encounter Discharge Disposition Disposition Code Departure Means Destination Comment s Home or Self USP with friend documented in this encounter ED Notes * Gigi Holliday RN - 11/27/2009 4161 EDT Bloods drawn and sent to lab, sst lav * Rom Jackson MD - 11/27/2009 8487 EDT DOS: 11/27/2009 Chief Complaint Patient presents with ??? Emesis Pt reports sudden onset of vomiting 1 hour ago w/ associated cp- reports multiple episodes of vomiting in last hour-now w/ some streaking of blood. + dizziness and palor. The patient is a 19 y.o. female who presents today with Emesis HPI Comments: The patient is a 19-year-old female who presents due to sudden onset of vomiting. States she felt fine earlier today had a bowel movement when she suddenly developed vomiting. She vomited multiple times. States the last time she vomited she saw some blood. She denies any fevers or chills. States that she has delayed colonic transit results and constipation for which she takes MiraLax. However she states she did have a bowel movement today. She has slight lower abdominal pain. She denies any urinary symptoms. Denies any fevers or chills. She denies any diarrhea. She has chronic constipation. Emesis This is a new problem. The current episode started less than 1 hour ago. The problem occurs 5 to 10times per day. The problem has not changed since onset. The emesis has an appearance of stomach contents. There has been no fever. Associated symptoms include abdominal pain. Pertinent negatives include no chills, no cough, no diarrhea, no fever, no headaches and no sweats. The history is provided by the patient. Review of Systems Constitutional: Negative for fever, chills, diaphoresis and fatigue. HENT: Negative for congestion, sore throat, mouth sores, neck pain, neck stiffness, sinus pressure and ear discharge. Eyes: Negative for photophobia, redness and visual disturbance. Respiratory: Negative for cough, chest tightness and shortness of breath. Cardiovascular: Negative for chest pain. Gastrointestinal: Positive for vomiting and abdominal pain. Negative for nausea and diarrhea. Genitourinary: Negative for dysuria, urgency, frequency and difficulty urinating. Musculoskeletal: Negative for back pain. Skin: Negative for rash. Neurological: Negative for dizziness, weakness and headaches. Hematological: Negative. Psychiatric/Behavioral: Negative. Negative for confusion. All other systems reviewed and are negative. 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 No Known Allergies History Substance Use Topics ??? Tobacco Use: Never ??? Alcohol Use: No No family history on file. Vital Signs Temp: 35.1 ??C (95.2 ??F) Temp src: Tympanic Pulse: 69 Resp: 16 SpO2: 100 % BP: 101/60 mmHg BP Device: BP Machine Patient Position: Sitting BP Cuff Location: Right arm O2 Device: None (Room air) Physical Exam Nursing note and vitals reviewed. Constitutional: She is oriented to person, place, and time. She appears well- developed and well-nourished. She appears distressed. HENT: Head: Normocephalic and atraumatic. Right Ear: External ear normal. Left Ear: External ear normal. Nose: Nose normal. Mouth/Throat: Oropharynx is clear and moist. Eyes: Conjunctivae and extraocular motions are normal. Pupils are equal, round, and reactive to light. Left eye exhibits discharge. Neck: Normal range of motion. Neck supple. No tracheal deviation present. Cardiovascular: Normal rate, regular rhythm, normal heart sounds and intact distal pulses. Pulmonary/Chest: Effort normal and breath sounds normal. No respiratory distress. She exhibits no tenderness. Abdominal: Soft. Bowel sounds are normal. She exhibits no distension. No tenderness. She has no rebound and no guarding. Musculoskeletal: Normal range of motion. She exhibits no tenderness. Neurological: She is alert and oriented to person, place, and time. She has normal strength. No cranial nerve deficit or sensory deficit. Skin: Skin is warm and dry. No rash noted. Psychiatric: She has a normal mood and affect. Radiology orders: None Procedures ED Course: Patient presents with sudden onset of nausea and vomiting. Patient denies any fevers or chills. States that she felt fine prior to the episodes. She has a history of colonic inertia that results in chronic constipation although she describes having a bowel movement today. Takes MiraLax for the constipation Patient hydrated with IV normal saline and treated with intravenous Zofran on arrival. Laboratory tests reviewed Patient feeling better Repeat exam reveals a soft nontender abdomen Patient be discharged home. Discharge Prescriptions New Prescriptions ONDANSETRON (ZOFRAN-ODT) 4 MG DISINTEGRATING TABLET Take 1 Tab by mouth every 8 hours as needed forNausea. MDM Number of Diagnoses or Management Options Vomiting: new, needed workup Amount and/or Complexity of Data Reviewed Clinical lab tests: ordered and reviewed Decide to obtain previous medical records or to obtain history from someone other than the patient:yes Risk of Complications, Morbidity, and/or Mortality Presenting problems: moderate Diagnostic procedures: moderate Management options: moderate General comments: 4 Patient Progress Patient progress: improved 1. 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 Reports diarrhea on/off in last week. documented in this encounter Miscellaneous Notes * Scanned Note-Null - Inpatient, Physician - 11/27/2009 0000 EDT documented in this encounter Plan of Treatment Upcoming Encounters Date Type Department Care Team (Late st Contact Info) Description 10/22/2023 13:25 EDT Hospital Encounter [facility] OR [address] [place] [address] Walker Pride MD [address] [facility], [address] [place] [phone] 10/22/2023 13:25 EDT - 10/22/2023 17:00 EDT Surgery [facility] OR [address] [place], [place] [phone] Walker Pride MD [address] [facility], [address] [place] [phone] Left L34 decompression, redo left L45 decompression [60114 (CPT??)] 11/22/2023 10:00 EDT Post-op Visit [facility] Neurosurgery - [facility] [address] [place], [place] [phone] Madiha Hurtado NP [address] [facility], [address] [place] [phone] Scheduled Procedures Name Priority Associated Diagnoses Date/Ti me LAMINECTOMY, SPINE, LUMBAR, 1 LEVEL, WITH FORAMINOTOMY OR FACETECTOMY Lumbar radiculopathy 10/22/2023 13:25 EDT LAMINECTOMY, SPINE, WITH FACETECTOMY AND FORAMINOTOMY, ADDITIONAL LEVEL FOLLOWING INITIAL LEVEL Lumbar radiculopathy 10/22/2023 13:25 EDT documented as of this encounter Procedures Procedure Name Priority Date/Time Associated Diagnosis Comments COMPLETE BLOOD COUNT AND DIFFERENTIAL STAT 11/27/2009 22:45 EDT BUN STAT 11/27/2009 22:45 EDT LIPASE STAT 11/27/2009 22:45 EDT CREATININE STAT 11/27/2009 22:45 EDT HEPATIC FUNCTION PANEL (ALB,ALK PHOS,ALT,AST,DBIL,TOT EDISON,TOT PROT) STAT 11/27/2009 22:45 EDT ELECTROLYTES STAT 11/27/2009 22:45 EDT documented in this encounter Results * (ABNORMAL) HEMAGRAM AND DIFFERENTIAL (11/27/2009 22:45 EDT) WBC 7.43 4.0 - 12.4 K/cmm [facility] RBC 3.68(L) 3.86 - 5.04 M/cmm [facility] Hemoglobin 13.3 11.6 - 15.2 gm/dl [facility] HCT 37.0 34.9 - 44.4 % [facility] MCV 101(H) 81 - 98 fl [facility] MCH 36.1(H) 26.7 - 33.3 pg [facility] MCHC 35.8 32.1 - 35.9 gm/dl [facility] PLT 172 141 - 320 K/cmm [facility] RDW-CV 12.0 11.7 - 14.6 % [facility] % Neutrophils 86.9(H) 45.5 - 79.7 % [facility] % Lymphocytes 12.0(L) 15.0 - 46.8 % [facility] % Monocytes 0.9(L) 1.8 - 12.0 % [facility] % Eosinophils 0.0(L) 0.6 - 6.9 % [facility] % Basophils 0.2 0.2 - 1.4 % [facility] ABS Neutrophils 6.46 2.20 - 8.85 K/cmm [facility] ABS Lymphs 0.89(L) 1.09 - 3.30 K/cmm [facility] ABS Monocytes 0.07(L) 0.1 - 0.8 K/cmm [facility] ABS Eosinophils 0.00(L) 0.03 - 0.61 K/cmm [facility] ABS Basophils 0.01 0.01 - 0.11 K/cmm [facility] Type of Diff: Automated [facility] Blood specimen (specimen) 11/27/2009 22:45 EDT 11/27/2009 22:53 EDT Rom Jackson MD PACKAGES & DNA PROBE ORDERABLES [facility] [address] [place] [address] * (ABNORMAL) LIPASE (11/27/2009 22:45 EDT) Lipase 280(H) 0 - 250 U/L [facility] Blood specimen (specimen) 11/27/2009 22:45 EDT 11/27/2009 22:53 EDT Rom Jackson MD CHEMISTRY & BLOOD GA S ORDERABLES Performing Organization Address [facility] Phone Number [facility] [address] [place] [address] * (ABNORMAL) LIVER FUNCTION TESTS (11/27/2009 22:45 EDT) Albumin 3.8 3.4 - 4.9 g/dl [facility] Total Protein 6.4(L) 6.5 - 8.3 g/dl [facility] Total Alkaline Phosphatase 52 38 - 126 U/L [facility] ALT 28 9 - 52 U/L [facility] AST 37 15 - 46 U/L [facility] Unconjugated Bilirubin 0.6 0.1 - 1.1 mg/dl [facility] Conjugated Bilirubin 0.0 0.0 - 0.3 mg/dl [facility] Bilirubin, Total <0.5 0.2 - 1.3 mg/dl [facility] Blood specimen (specimen) 11/27/2009 22:45 EDT 11/27/2009 22:53 EDT Rom Jackson MD CHEMISTRY & BLOOD GA S ORDERABLES Performing Organization Address [facility] Phone Number [facility] [address] [place] [address] * CREATININE (11/27/2009 22:45 EDT) Creatinine 0.80 0.7 - 1.5 mg/dl [facility] GFR, Calculated >60 ml/min/1.7 3m2 [facility] Blood specimen (specimen) 11/27/2009 22:45 EDT 11/27/2009 22:53 EDT Rom Jackson MD CHEMISTRY & BLOOD GA S ORDERABLES Performing Organization Address [facility] Co de Phone Number [facility] [address] [place] [address] * (ABNORMAL) BUN (11/27/2009 22:45 EDT) BUN 9(L) 10 - 26 mg/dl [facility] Blood specimen (specimen) 11/27/2009 22:45 EDT 11/27/2009 22:53 EDT Rom Jackson MD CHEMISTRY & BLOOD GA S ORDERABLES Performing Organization Address [facility] de Phone Number [facility] [address] [place] [address] * ELECTROLYTES (11/27/2009 22:45 EDT) Sodium 139 136 - 145 mEq/L [facility] Potassium 3.6 3.5 - 5.0 mEq/L [facility] Chloride 102 96 - 110 mEq/L [facility] CO2 31 24 - 32 mEq/L [facility] Blood specimen (specimen) 11/27/2009 22:45 EDT 11/27/2009 22:53 EDT Rom Jackson MD CHEMISTRY & BLOOD GA S ORDERABLES Performing Organization Address [facility] Phone Number [facility] [address] [place] [address] documented in this encounter Visit Diagnoses Diagnosis Vomiting Vomiting alone Lumbar radiculopathy Thoracic or lumbosacral neuritis or radiculitis, unspecified documented in this encounter Administered Medications Inactive Administered Medications - up to 3 most recent administrations Medication Order MAR Action Action Date Dose Rate Site ondansetron (PF) (ZOFRAN) injection 4 mg 4 mg, intravenous, NOW X1, 1 dose, On Wed11/27/09 at 2300, STAT Given 11/27/2009 23:00 EDT 4 mg sodium chloride 0.9 % 1,000 mL BOLUS 1,000 mL, intravenous, Once (Without Time Specified), 1 dose, Starting on Wed11/27/09 at 2300, Until Wed11/27/09 at 2300, STAT Given 11/27/2009 23:00 EDT 1,000 mL documented in this encounter Discontinued Medications Medication Sig Discontinue Reason Start Date End Da te amitriptyline (ELAVIL) 10 mg tablet Take 1 Tab by mouth at bedtime as needed for Sleep. 07/31/2009 11/27/2009 tolterodine (DETROL LA) 4 mg ER capsule Take 1 Cap by mouth daily. 09/11/2009 11/27/2009 documented as of this encounter Active and Recently Administered Medications Times are shown in EDT. Scheduled Medication Order 11/26/2009 11/27/2009 11/28/2009 ondansetron (PF) (ZOFRAN) injection 4 mg (COMPLETED) 4 mg, intravenous, NOW X1, 1 dose, On Wed11/27/09 at 2300, STAT 2300 (Given - Provider: Gigi Holliday RN) sodium chloride 0.9 % 1,000 mL BOLUS (COMPLETED) 1,000 mL, intravenous, Once (Without Time Specified), 1 dose, Starting on Wed11/27/09 at 2300, Until Wed11/27/09 at 2300, STAT 2300 (Given - Provider: Gigi Holliday RN) documented in this encounter Care Teams Tile And Marble Setter Relationship Specialty Start Date End Date Nataly Vilchis MD PhD [address] [place] [phone] PCP - General 08/20/08 11/21/18 documented as of this encounter
--- OUTSIDE RECORDS SUMMARY | 2023-10-19 15:36 | XMS_ITS | Encounter Summary ---
Author Organization [facility] Address [address] [place] [address] Care Team Providers Care Adjustment Clerk Name Role Phone Miri Vilchis MD PhD Primary Care Provider Reason for Visit * Reason Onset Date Comments Tick Removal 06/29/2016 Encounter Details Date Type Department Care Team (Late st Contact Info) Description 06/29/2016 Refill [facility] Adult Primary Care - [address] [address] Miri Vilchis MD PhD [address] [place] [phone] Tick Removal Social History Tobacco Use Types Packs/Day Years [...] Dispensed Refills Start Date End Da te doxycycline (VIBRA-TABS) 100 mg tablet Take 2 Tabs by mouth once for 1 dose. 2 Tab 06/29/2016 05/03/2017 documented in this encounter Miscellaneous Notes * Telephone Encounter - Princess Ross RN - 06/29/2016 1257 EDT Message reviewed with patient. All questions answered to patient's satisfaction. The patient indicates understanding of all matters discussed, and agrees with the plan. * Telephone Encounter - Sabiha Dalton MD - 06/29/2016 1251 EDT Signed for prophylactic doxycycline. Hold any multivitamins the day she takes it. * Telephone Encounter - Pinky Rahman - 06/29/2016 1029 EDT Reason for Call: Tick Removal Summary/Symptoms: Pt found a tick on her on her upper arm How long was it attached? Last night Was it engorged? Yes - head imbedded, starting to get engorged Was the pt able to remove it? Yes If yes, did they remove all of it? Yes Is there a bullseye ring around the area? Yes - red lori where it was attached & red bear river around the area Onset and Duration? Last night Appointment Offered? No Pinky Rahman 06/29/2016 10:29 documented in this encounter Plan of Treatment Upcoming Encounters Date Type Department Care Team (Late st Contact Info) Description 10/22/2023 13:25 EDT Hospital Encounter [facility] OR [address] [place] [phone] Walker Pride MD [address] [place] [address], [address] [place] [phone] 10/22/2023 13:25 EDT - 10/22/2023 17:00 EDT Surgery [facility] OR [address] [place] [phone] Walker Pride MD [address] [facility], [address] [place] [phone] Left L34 decompression, redo left L45 decompression [91134 (CPT??)] 11/22/2023 10:00 EDT Post-op Visit [facility] Neurosurgery - [facility] [address], [place] [phone] Madiha Hurtado NP [address] [facility], [address] [place] [phone] Scheduled Procedures Name Priority Associated Diagnoses Date/Ti me LAMINECTOMY, SPINE, LUMBAR, 1 LEVEL, WITH FORAMINOTOMY OR FACETECTOMY Lumbar radiculopathy 10/22/2023 13:25 EDT LAMINECTOMY, SPINE, WITH FACETECTOMY AND FORAMINOTOMY, ADDITIONAL LEVEL FOLLOWING INITIAL LEVEL Lumbar radiculopathy 10/22/2023 13:25 EDT documented as of this encounter Visit Diagnoses Not on filedocumented in this encounter Care Teams Adjustment Clerk Relationship Specialty Start Date End Date Miri Vilchis MD PhD [address] [place] [phone] PCP - General 08/20/08 11/21/18 documented as of this encounter
--- OUTSIDE RECORDS SUMMARY | 2023-10-19 15:36 | XMS_ITS | Encounter Summary ---
Author Organization [facility] Address [address] [place] [address] Care Team Providers Care Supervisor Publications Name Role Phone Miri Vilchis MD PhD Primary Care Provider Unknown, Provider Primary Care Provider Bri Murphy PA-C Primary Care Provider Galilea Mars NP Primary Care Provider [phone] Encounter Details Date Type Department Care Team (Late st Contact Info) Description 04/26/2015 Historical Results Only [facility] Radiology Results [address] [place] [phone] Momo Robbins PA-C [address] [place] [address] Social History Tobacco Use Types Packs/Day Years [...] Info) Description 10/22/2023 13:25 EDT Hospital Encounter [facility] [place] [address] [place] [address] [phone] Walker Pride MD [address] [place] [address], [facility] [address] [place] [phone] 10/22/2023 13:25 EDT - 10/22/2023 17:00 EDT Surgery [facility] OR [address] [place] [address] [phone] Walker Pride MD [address] [place] [address], [facility] [address] [place] [phone] Left L34 decompression, redo left L45 decompression [88314 (CPT??)] 11/22/2023 10:00 EDT Post-op Visit [facility] Neurosurgery - [address] [phone] Madiha Hurtado NP [address] [place] [address], [facility] [address] [place] [phone] Scheduled Procedures Name Priority Associated Diagnoses Date/Ti me LAMINECTOMY, SPINE, LUMBAR, 1 LEVEL, WITH FORAMINOTOMY OR FACETECTOMY Lumbar radiculopathy 10/22/2023 13:25 EDT LAMINECTOMY, SPINE, WITH FACETECTOMY AND FORAMINOTOMY, ADDITIONAL LEVEL FOLLOWING INITIAL LEVEL Lumbar radiculopathy 10/22/2023 13:25 EDT documented as of this encounter Procedures Procedure Name Priority Date/Time Associated Diagnosis Comments CT CERVICAL SPINE WO CONTRAST 04/26/2015 14:26 EST documented in this encounter Results * CT CERVICAL SPINE WO CONTRAST (04/26/2015 14:26 EST) Anatomical Region Laterality Modality Cervical spine Other 04/26/2015 14:2 6 EST Narrative 04/26/2015 15:27 EST [address] [place], [place] [address] Diagnostic Imaging Report Signed Patient Name:TERI LANGE ? Date of :1990 ? MR Number:[id number] Age:24 ?Sex:F Category: CT ? Date of Exam:04/26/15 Procedure: CT: Spine; Cervical w/o cntrst ? Ordering Physician: Momo Robbins ??PA CC: Miri Vilchis Hylah PA CT CERVICAL SPINE 04/26/2015 The patient has history of injury. A noncontrast enhanced study is performed. ??Axial, sagittal, and coronal reconstruction imaging is submitted. ??No prior cervical spine CT is currently available for comparison. No fracture is seen. ??The alignment appears unremarkable. ??No suspicious abnormality of the vertebral canal contents is noted. ??The surrounding soft tissues appear unremarkable as does the included lower head and upper chest. IMPRESSION: ?? No significant imaging abnormality is noted. GRIER/dls Dictated by: Christal Grier ??MD ? D/ 1527 Transcribed by: KASSIDY ? D/ 1536 E-Signed by: <Electronically signed by Christal Grier ??MD> ? D/ 1724 Procedure Note Jaspreet Grier MD - 12/13/2018 [place] [address] Diagnostic Imaging Report Signed Patient Name:TERI LANGE EAccount Number:[id number] Date of :1990 MRNumber:[id number] Age:24 Sex:F Category: CT Date ofExam:04/26/15 Procedure: CT: Spine; Cervical w/o cntrstAccession: [id number] Ordering Physician: Momo Robbins CC: Miri Vilchis Hylah PA CT CERVICAL SPINE 04/26/2015 The patient has history of injury. A noncontrast enhanced study is performed. Axial, sagittal, and coronalreconstruction imaging is submitted. No prior cervical spine CT is currently available forcomparison. No fracture is seen. The alignment appears unremarkable. No suspiciousabnormality of the vertebral canal contents is noted. The surrounding soft tissues appearunremarkable as does the included lower head and upper chest. IMPRESSION: No significant imaging abnormality is noted. GRIER/dls Dictated by: Christal Grier MDD/ 26 Transcribed by: BANDAR/ 1536 E-Signed by: <Electronically signed by Christal Grier MD>D/ 1724 Momo Lees Rosendo XIAO IMG CT ORDERABLE S documented in this encounter Visit Diagnoses Not on filedocumented in this encounter Care Teams Supervisor Publications Relationship Specialty Start Date End Date Miri Vilchis MD PhD [address] [place] [phone] PCP - General 08/20/08 11/21/18 Unknown, Provider, PCP - General 11/22/18 10/15/19 Bri Murphy PA-C [address] [place] [address] PCP - General Internal Medicine - Primary Care 10/16/19 09/15/21 Galilea Mars NP [address] [employer] [place] [address] PCP - General 09/16/21 documented as of this encounter
--- OUTSIDE RECORDS SUMMARY | 2023-10-19 15:36 | XMS_ITS | Encounter Summary ---
Author Organization [facility] Address [address] [place] [address] Care Team Providers Care Film And Video Editor Name Role Phone Miri Vilchis MD PhD Primary Care Provider Reason for Visit * Reason Onset Date Comments Abdominal Cramping 05/03/2017 Encounter Details Date Type Department Care Team (Late st Contact Info) Description 05/03/2017 Telephone [facility] Adult Primary Care - [address] [address] Miri Vilchis MD PhD [address] [place] [phone] Abdominal Cramping Social History Tobacco Use Types Packs/Day Years [...] Telephone Encounter - Cookie Ronquillo RN - 05/03/2017 0910 EST Pt reports 72 hours of abdominal cramping. She has an IUD placed a year ago and no problems with it. She has noticed though that she is no longer able to feel the strings when she checks. She describes the abdominal cramping as being not very comfortable and in adiition to the cramping there is a lower abdominal pain. Both are intermittent. Discomfort at its worst has been a 6-7 on the pain scale. She had some nausea during the night Wednesday and Wednesday nights. No vomiting and no diarrhea. No fevers but occasionally feels clammy and cold. No vaginal bleeding since the pain started (she hasn't had her period since having the IUD). Pain is not worsening. [facility] referred her here. Advised pt to be seen and given OV today. Advised her to go to the [facility] if pain becomes more severe or other new concerning symptoms arise. The patient indicates understanding of these issues and agrees with the plan. * Telephone Encounter - Patt Willis - 05/03/2017 0835 EST Reason for Call: Abdominal Cramping Summary/Symptoms: Patient having abd. Pain and cramping, lower abd. ? If from her IUD, placed by [facility] about 1 year ago. She contacted them, told to try to make an appt with PCP Onset and Duration? 3 days ago Appointment Offered? No Patt Willis 05/03/2017 8:36 documented in this encounter Plan of Treatment Upcoming Encounters Date Type Department Care Team (Late st Contact Info) Description 10/22/2023 13:25 EDT Hospital Encounter [facility] OR [address] [place] [phone] Walker Pride MD [address] [place] [address], [address] [place] [phone] 10/22/2023 13:25 EDT - 10/22/2023 17:00 EDT Surgery [facility] OR [address] [place] [address] [phone] Walker Pride MD [address] [facility], [address] [place] [phone] Left L34 decompression, redo left L45 decompression [37915 (CPT??)] 11/22/2023 10:00 EDT Post-op Visit [facility] Neurosurgery - [facility] [address] [place], [place] [phone] Madiha Hurtado NP [address] [facility], [address] [place] [phone] Scheduled Procedures Name Priority Associated Diagnoses Date/Ti me LAMINECTOMY, SPINE, LUMBAR, 1 LEVEL, WITH FORAMINOTOMY OR FACETECTOMY Lumbar radiculopathy 10/22/2023 13:25 EDT LAMINECTOMY, SPINE, WITH FACETECTOMY AND FORAMINOTOMY, ADDITIONAL LEVEL FOLLOWING INITIAL LEVEL Lumbar radiculopathy 10/22/2023 13:25 EDT documented as of this encounter Visit Diagnoses Not on filedocumented in this encounter Care Teams Film And Video Editor Relationship Specialty Start Date End Date Miri Vilchis MD PhD [address] [place] [phone] PCP - General 08/20/08 11/21/18 documented as of this encounter
--- OUTSIDE RECORDS SUMMARY | 2023-10-19 15:36 | XMS_ITS | Encounter Summary ---
Author Organization [facility] Address [address] [place] [address] Care Team Providers Care Decision Analyst Name Role Phone Miri Vilchis MD PhD Primary Care Provider Encounter Details Date Type Department Care Team (Late st Contact Info) Description 05/03/2017 Results Only [facility] Adult Primary Care - [address] [address] Bri Murphy, PA-C [address] [facility] [address] [place] [phone] Social History Tobacco Use Types Packs/Day [...] 10/22/2023 13:25 EDT Hospital Encounter [facility] OR [address] [place], [place] [phone] Walker Pride MD [address] [facility], [address] [place] [phone] 10/22/2023 13:25 EDT - 10/22/2023 17:00 EDT Surgery [facility] OR [address] [place], [place] [phone] Walker Pride MD [address] [place] [address], [facility], [address] [place] [phone] Left L34 decompression, redo left L45 decompression [33530 (CPT??)] 11/22/2023 10:00 EDT Post-op Visit [facility] Neurosurgery - [address] [phone] Madiha Hurtado NP 111 [facility], [facility], [address] [place] [phone] Scheduled Procedures Name Priority Associated Diagnoses Date/Ti me LAMINECTOMY, SPINE, LUMBAR, 1 LEVEL, WITH FORAMINOTOMY OR FACETECTOMY Lumbar radiculopathy 10/22/2023 13:25 EDT LAMINECTOMY, SPINE, WITH FACETECTOMY AND FORAMINOTOMY, ADDITIONAL LEVEL FOLLOWING INITIAL LEVEL Lumbar radiculopathy 10/22/2023 13:25 EDT documented as of this encounter Procedures Procedure Name Priority Date/Time Associated Diagnosis Comments PAP TEST- RESULT ONLY Routine 05/03/2017 0:00 EST documented in this encounter Results * PAP TEST- RESULT ONLY (05/03/2017 0:00 EST) Pathology Report: CYTOPATHOLOGY REPORT Reports generated via electronic interface contain original data; however they are lacking the format of the original report. Caution should be taken when reading/interpreti ng unformatted reports. Name: ? SARAH LANGE ? Accession #: ? [id number] : ? 1990 (Age: 26) ??F ?Collect Date: ? 05/03/2017 Location: ? [facility] ? Receive Date: ? 05/04/2017 Provider: ?BRI CUETO Copy to: ? Specimen/Source: ?Pap Test, Cervix/Endocervix, ThinPrep Imaging System with manual evaluation Last Menstrual Period: ? 1 year ago Hormonal/Contracep tive Status: ? Intrauterine device Other: ? Additional clinical information: Right lower abd cramping ? SPECIMEN ADEQUACY ? Satisfactory for Evaluation - transformation zone component present GENERAL CATEGORIZATION ? Negative for Intraepithelial Lesion or Malignancy ? Document reviewed and electronically signed by: ? ZACH Desai(ASCP) ? Report Date: ??05/14/2017 16:43 End of Report [facility] 05/03/2017 05/04/2017 Bri CUETO-Elmer PATHOLOGY ORDERABLES [facility] [address] [place] [address] documented in this encounter Visit Diagnoses Not on filedocumented in this encounter Care Teams Decision Analyst Relationship Specialty Start Date End Date Miri Vilchis MD PhD [address] [place] [phone] PCP - General 08/20/08 11/21/18 documented as of this encounter
--- OUTSIDE RECORDS SUMMARY | 2023-10-19 15:36 | XMS_ITS | Encounter Summary ---
Author Organization [facility] Address [address] [place] [address] Care Team Providers Care Media Executive Name Role Phone Nataly Vilchis MD PhD Primary Care Provider Reason for Visit * Reason Comments Emesis Onset N/V/abd pain 1 830. States she really had marginal appetite today. Seen in ED for same two weeks ago and has F/U appt with GI for further work up as he has also been experiencing constipation. Noted yellow tone to skin. Vomiting on arrival bile colored fluid and has incontinent loose stool. Encounter Details Date Type Department Care Team (Late st Contact Info) Description 12/08/2009 20:33 EDT - 12/09/2009 2:29 EDT Emergency [facility] Emergency Department - Main [place] [address] [place] [address] Shahzad Sanchez MD [address] [place] [phone] Cj Suárez PA [address] [place] [phone] EmergencyJamie MD Nausea with vomiting; Increased serum lipase level; Jaundice Discharge Disposition: Home or Self Care Social [...] Sign Reading Time Taken Comments Blood Pressure 92/57 12/09/20095 EDT Pulse 60 12/09/20095 EDT Temperature 36.9 ??C (98.4 ??F) 12/08/2009 2104 EDT Respiratory Rate 16 12/09/200944 EDT Oxygen Saturation 100% 12/09/200944 EDT Inhaled Oxygen Concentration - - Weight - - Height - - Body Mass Index - - documented in this encounter Discharge Instructions * Discharge Instructions* Cj Suárez PA - 12/09/2009 1:35 EDT Rest, drink plenty of fluids. Diet as tolerated - eat an [id number] BRAT (bananas, rice, applesauce, and toast) diet. Take Zofran as needed for nausea. Follow-up with Dr. Vilchis in 2 days for recheck of your bloodwork - you will need a repeat evaluationof your lipase and your hepatitis panel should be available at that time. Follow-up with Dr. Hunter as scheduled. If your symptoms are not controlled, if your jaundice worsens, if you develop fevers or abdominal pain, if you notice persistent blood in your vomitus or stools, or if any other concerns arise, please return to the ED for reevaluation. * Attachments The following attachments cannot be sent through Care Everywhere. * JAUNDICE IN ADULTS: AFTER YOUR VISIT (ZIMBABWEAN) * NAUSEA AND VOMITING: AFTER YOUR VISIT (ZIMBABWEAN) documented in this encounter Medications at Time of Discharge Medication Sig Dispensed Refills Start Date End Date norgestimate-ethinyl estradiol (ORTHO-CYCLEN) 0.25-35 mg-mcg per tablet Take 1 Tab by mouth daily. 1 Package 11 07/25/2009 04/22/2010 ondansetron (ZOFRAN-ODT) 4 mg disintegrating tablet Take 1 Tab by mouth every 8 hours as needed for Nausea. 15 Tab 0 12/09/2009 01/08/2010 ondansetron (ZOFRAN-ODT) 4 mg disintegrating tablet Take [...] as needed for Nausea. 15 Tab 0 12/09/2009 01/08/2010 documented in this encounter Discharge Disposition Disposition Code Departure Means Destination Home or Self Care Car Home documented in this encounter ED Notes * Ana Marcelino - 12/09/2009 0226 EDT States understands discharge instructions and followup. Ambulated out of ED offering no complaints. * Miguel Ángel Vilchis RN - 12/09/2009 0046 EDT Pt resting quietly. Pt in NAD. Skin warm and dry. Pt AO. Resp unlabored. Pt updated on the reason for wait, pt awaiting dispo. * Miguel Ángel Vilchis RN - 12/08/2009 2312 EDT Pt ambulatory to the restroom. Pt gait normal. Pt in NAD. Pt ambulatory independently. * Miguel Ángel Vilchis RN - 12/08/20092202 EDT Pt resting quietly. Pt in NAD. Skin warm and dry. Pt AO. Resp unlabored. Pt updated on the reason for wait, pt awaiting results. Mom at the bedside. * Cj Suárez PA - 12/08/20092131 EDT DOS: 12/08/2009 Chief Complaint Patient presents with ??? Emesis Onset N/V/abd pain 1830. States she really had marginal appetite today. Seen in ED for same two weeks ago and has F/U appt with GI for further work up as he has also been experiencing constipation. Noted yellow tone to skin. Vomiting on arrival bile colored fluid and has incontinent loose stool. The patient is a 19 y.o. female who presents today with Emesis HPI Comments: Pt with hx of recurrent bouts of vomiting and diarrhea for which she is scheduled forfurther evaluation with GI presents to the ED c/o vomiting x 3 hours. Pt was studying in dorm room this evening with sudden onset of bilious emesis, occasionally with scant blood, x 10 times. Admits to epigastric, nonradiating, sharp chest pain which immediately precedes emesis and is relieved post-emesis. Admits to 3 episodes of diarrhea with RLQ pain immediately preceding the diarrhea this evening; pt cannot characterize volume or appearance of stools. Also admits to decreased appetite, 20lb unintentional weight loss x 9 months, and occasional general malaise. Denies abdominal pain, palpitations, SOB, hematochezia, melena, headaches, fevers, chills, recent travel or sick contacts. Pt was seen in the ED 2 weeks ago c/o constipation and has a follow- up scheduled with Dr. Hunter on 12/25/2009 for a colonoscopy. The history is provided by the patient and a parent. Emesis Associated symptoms include diarrhea. Pertinent negatives include no abdominal pain, no chills, no fever and no headaches. Review of Systems Constitutional: Positive for appetite change and unexpected weight change. Negative for fever and chills. HENT: Negative for neck stiffness. Eyes: Negative for visual disturbance. Respiratory: Negative for shortness of breath. Cardiovascular: Positive for chest pain. Negative for palpitations. Gastrointestinal: Positive for nausea, vomiting and diarrhea. Negative for abdominal pain, blood instool and abdominal distention. Genitourinary: Negative for dysuria. Musculoskeletal: Negative for back pain. Skin: Negative for rash and color change. Neurological: Negative for headaches. Psychiatric/Behavioral: Negative for confusion. All other systems reviewed and are negative. History reviewed. No pertinent past medical history. History reviewed. No pertinent past surgical history. No Known Allergies History Substance Use Topics ??? Tobacco Use: Never ??? Alcohol Use: No History reviewed. No pertinent family history. Vital Signs Temp: 36.9 ??C (98.4 ??F) Temp src: Tympanic Pulse: 60 Resp: 16 SpO2: 100 % BP: 92/57 mmHg BP Device: BP Machine Patient Position: Sitting BP Cuff Location: Right arm O2 Device: None (Room air) Physical Exam Nursing note and vitals reviewed. Constitutional: She is oriented to person, place, and time. She appears well- developed and well-nourished. HENT: Head: Normocephalic and atraumatic. Right Ear: External ear normal. Left Ear: External ear normal. Nose: Nose normal. Mouth/Throat: Oropharynx is clear and moist. Eyes: Conjunctivae are normal. Pupils are equal, round, and reactive to light. Right eye exhibits no discharge. Left eye exhibits no discharge. No scleral icterus. Neck: Normal range of motion. Neck supple. No tracheal deviation present. Cardiovascular: Normal rate, regular rhythm and normal heart sounds. Exam reveals no gallop and no friction rub. No murmur heard. Pulmonary/Chest: Effort normal and breath sounds normal. No respiratory distress. Abdominal: Soft. Bowel sounds are normal. She exhibits no distension and no mass. There is no organomegaly. No tenderness. She has no rebound, no guarding, no CVA tenderness, no pain at McBurney's point and no Olivas's sign. Mild RLQ tenderness upon palpation Musculoskeletal: Normal range of motion. Neurological: She is alert and oriented to person, place, and time. She has normal strength. No sensory deficit. Skin: Skin is warm and dry. No rash noted. Psychiatric: She has a normal mood and affect. Radiology orders: RAD US ABDOMEN ONE ORGAN/QUADRANT RAD US ABDOMEN ONE ORGAN/QUADRANT (Results Pending) Procedures ED Course: VSS, afebrile. PE largely WNL. Administered Zofran and NS IV with excellent symptomatic relief. Labs concerning for mildly elevated lipase (295), but were otherwise largely WNL. RUQ US showed no signs of acute cholecystitis, but heterogeneous appearance to liver. Pt well-appearing overall. Hepatitis panel sent. Plan for pt to follow-up with PCP in 2 days for recheck of lipase and with Dr. Hunter as scheduled. Pt and mom are comfortable with outpt management plan. D/W Dr. Lozano who concurs. Discussed symptomatic measures and discharged to home with detailed instructions, script for Zofran, and closely recommended follow-up. Supervising Physician: Blake Discharge Prescriptions New Prescriptions ONDANSETRON (ZOFRAN-ODT) 4 MG DISINTEGRATING TABLET Take 1 Tab by mouth every 8 hours as needed forNausea. MDM Number of Diagnoses or Management Options Increased serum lipase level: Jaundice: Nausea with vomiting: Diagnosis management comments: 4 Amount and/or Complexity of Data Reviewed Clinical lab tests: ordered and reviewed Tests in the medicine section of CPT??: reviewed and ordered Decide to obtain previous medical records or to obtain history from someone other than the patient:yes Obtain history from someone other than the patient: yes Review and summarize past medical records: yes Discuss the patient with other providers: yes 1. Nausea with vomiting (787.01) 2. Increased serum lipase level (790.5AN) 3. Jaundice (782.4S) PCP: NATALY VILCHIS MD,PHD 12/09/2009 7:30 * Miguel Ángel Vilchis RN - 12/08/20092104 EDT Care assumed at this time and the pts chart reviewed. Pt awaiting provider evaluation. documented in this encounter Miscellaneous Notes * Scanned Note-Null - Inpatient, Physician - 12/08/2009 0000 EDT * Scanned Note-Null - Inpatient, Physician - 12/08/2009 0000 EDT * Scanned Note-Null - Inpatient, Physician - 12/08/2009 0000 EDT documented in this encounter Plan of Treatment Upcoming Encounters Date Type Department Care Team (Late st Contact Info) Description 10/22/2023 13:25 EDT Hospital Encounter [facility] [place] [address] [place] [address] [phone] Walker Pride MD [address] [place] [address], [address] [place] [phone] 10/22/2023 13:25 EDT - 10/22/2023 17:00 EDT Surgery [facility] OR [address] [place] [address] [id number] Walker Pride MD [address] [place] [address], [address] [place] [phone] Left L34 decompression, redo left L45 decompression [22955 (CPT??)] 11/22/2023 10:00 EDT Post-op Visit [facility] Neurosurgery - [address] [phone] Madiha Hurtado NP [address] [place] [address], [address] [place] [phone] Scheduled Procedures Name Priority Associated Diagnoses Date/Ti me LAMINECTOMY, SPINE, LUMBAR, 1 LEVEL, WITH FORAMINOTOMY OR FACETECTOMY Lumbar radiculopathy 10/22/2023 13:25 EDT LAMINECTOMY, SPINE, WITH FACETECTOMY AND FORAMINOTOMY, ADDITIONAL LEVEL FOLLOWING INITIAL LEVEL Lumbar radiculopathy 10/22/2023 13:25 EDT documented as of this encounter Procedures Procedure Name Priority Date/Time Associated Diagnosis Comments ED/URGENT CARE ADD-ON STAT 12/09/2009 2:25 EDT RAD US ABDOMEN ONE ORGAN/QUADRANT STAT 12/08/2009 23:56 EDT POCT TEST, VISUAL READ STAT 12/08/2009 23:29 EDT POCT URINE DIPSTICK, CLINITEK STAT 12/08/2009 23:29 EDT ED/URGENT CARE ADD-ON STAT 12/08/2009 21:20 EDT HEPATITIS B CORE ANTIBODY, IGM (ANTI-HBC, IGM), SERUM Routine 12/08/2009 21:10 EDT HOLD SST STAT 12/08/2009 21:10 EDT HOLD PURPLE TOP STAT 12/08/2009 21:10 EDT HOLD GREEN TOP STAT 12/08/2009 21:10 EDT HOLD BLUE TOP STAT 12/08/2009 21:10 EDT HEPATITIS C AB W REFLEX TO HCV RNA BY PCR Routine 12/08/2009 21:10 EDT HEPATITIS A TOTAL ANTIBODY W REFLEX Routine 12/08/2009 21:10 EDT HEPATITIS B SURFACE ANTIGEN Routine 12/08/2009 21:10 EDT COMPLETE BLOOD COUNT AND DIFFERENTIAL Routine 12/08/2009 21:10 EDT BUN Routine 12/08/2009 21:10 EDT LIPASE Routine 12/08/2009 21:10 EDT GLUCOSE, SERUM Routine 12/08/2009 21:10 EDT CREATININE Routine 12/08/2009 21:10 EDT HEPATIC FUNCTION PANEL (ALB,ALK PHOS,ALT,AST,DBIL,TOT EDISON,TOT PROT) Routine 12/08/2009 21:10 EDT ELECTROLYTES Routine 12/08/2009 21:10 EDT documented in this encounter Results * ED/WICC ADD-ON (12/09/2009 2:25 EDT) Tests to be added hep A total antibody, Hep B Core Antibody, IgM(Anti HBc, IgM)serum, Hep B Surface antigen, Hep C Antibody [facility] Number for problems [id number] (ED) [facility] 12/09/2009 2:25 EDT 12/09/2009 2:38 EDT Cj CUETO HEMATOLOGY & PF4 ORD ERABLES [facility] [address] [place] [address] * RAD US ABDOMEN ONE ORGAN/QUADRANT (12/08/2009 23:56 EDT) Anatomical Region Laterality Modality Other 12/08/2009 23:5 6 EDT 12/09/2009 8:56 EDT Narrative 12/09/2009 8:56 EDT US ABD ONE ORG/QUAD ??Dec 08, 2009 11:56:00 PM Signs and Symptoms/Comments: ??EMESIS; jaundice. Comparisons: None. Findings: The liver is normal in shape and size measuring 15.6 cm craniocaudad. The liver parenchyma is somewhat heterogeneous and there is increased echogenicity of the portal triads giving is a starry rosangela appearance. No focal liver lesion or intrahepatic biliary ductal dilatation is evident. The common bile duct at the kathy hepatis is normal in caliber measuring 4.5 mm. The gallbladder contains a small amount of sludge. There is no shadowing calculi or gallbladder wall thickening. The visualized proximal IVC, aorta, and pancreas are within normal limits. The right kidney it is normal in size measuring 11.4 cm. There is a simple cyst at the upper pole measuring 1.6 x 1.3 x 1.5 cm. There is no hydronephrosis. A trace amount of free fluid is seen in Velázquez's pouch. Impression: 1. Slight heterogeneous hepatic parenchyma and increased echogenicity of the portal triads. These findings are nonspecific although can be seen in hepatitis. 2. Small amount of gallbladder sludge, no findings to suggest biliary obstruction or cholecystitis. 3. Trace amount of free fluid in Morison's pouch. 4. Simple right renal cyst. Case was reviewed with CJ SUÁREZ December 08, 2009 at 1150 p.m. I have personally reviewed the images and the above interpretation and agree with the findings. Procedure Note Emily Bustillo MD - 12/09/2009 US ABD ONE ORG/QUAD Dec 08, 2009 11:56:00 PM Signs and Symptoms/Comments: EMESIS; jaundice. Comparisons: None. Findings: The liver is normal in shape and size measuring 15.6 cm craniocaudad. The liver parenchyma is somewhat heterogeneous and there is increased echogenicity of the portal triads giving is a starry rosangela appearance. No focal liver lesion or intrahepatic biliary ductal dilatation is evident. The common bile duct at the kathy hepatis is normal in caliber measuring 4.5 mm. The gallbladder contains a small amount of sludge. There is no shadowing calculi or gallbladder wall thickening. The visualized proximal IVC, aorta, and pancreas are within normal limits. The right kidney it is normal in size measuring 11.4 cm. There is a simple cyst at the upper pole measuring 1.6 x 1.3 x 1.5 cm. There is no hydronephrosis. A trace amount of free fluid is seen in Velázquez's pouch. Impression: 1. Slight heterogeneous hepatic parenchyma and increased echogenicity of the portal triads. These findings are nonspecific although can be seen in hepatitis. 2. Small amount of gallbladder sludge, no findings to suggest biliary obstruction or cholecystitis. 3. Trace amount of free fluid in Morison's pouch. 4. Simple right renal cyst. Case was reviewed with CJ SUÁREZ December 08, 2009 at 1150 p.m. I have personally reviewed the images and the above interpretation and agree with the findings. Cj [facility] [place]LES * POCT URINE TEST (12/08/2009 23:29 EDT) Test, Urine, POC Negative Pending, Negative POINT OF CARE Control Line Present Yes POINT OF CARE Background Clear? Yes POINT OF CARE Urine specimen (specimen) Cj CUETO POINT OF CARE TEST O RDERABLES POINT OF CARE * (ABNORMAL) POCT URINE DIPSTICK (12/08/2009 23:29 EDT) Color, UA POINT OF CARE Clarity, UA POINT OF CARE Glucose, UA Negative Negative mg/dL POINT OF CARE Bilirubin, UA Negative Negative POINT OF CARE Ketones, UA Negative Negative mg/dL POINT OF CARE Spec Grav, UA 1.015 1.010, 1.015, 1.020, 1.025 POINT OF CARE Blood, UA 2+(A) Negative POINT OF CARE pH, UA 7.5 4.6 - 8.0 POINT OF CARE Protein, UA Negative Negative mg/dL POINT OF CARE Urobilinogen, UA 0.2 0.2 - 1.0 E.U./dL POINT OF CARE Nitrite, UA Negative Negative POINT OF CARE Leuk Esterase Negative Negative POINT OF CARE Comment POINT OF CARE Urine specimen (specimen) Cj CUETO POINT OF CARE TEST O RDERABLES POINT OF CARE * ED/WICC ADD-ON (12/08/2009 21:20 EDT) Pathologist [facility] Tests to be added BUN and Creatinine ,Electroly bobby,Hemagr am with Differenti al,Glucose , ?? Serum,Lipa se,Liver Panel [facility] Number for problems [id number] (ED) [facility] 12/08/2009 21:2 0 EDT 12/08/2009 21:22 EDT Cj [facility] HEMATOLOGY & PF4 ORD ERABLES [facility] [address] [place] [address] * HEPATITIS C ANTIBODY (12/08/2009 21:10 EDT) Hepatitis C Ab Negative Reference Range: Negative [facility] 12/08/2009 21:1 0 EDT 12/08/2009 21:15 EDT Cj [facility] CHEMISTRY & BLOOD GA S ORDERABLES Performing Organization Address [facility] Co de Phone Number [facility] [address] [place] [address] * HEPATITIS B CORE ANTIBODY, IGM (ANTI-HBC, IGM), SERUM (12/08/2009 21:10 EDT) [facility] Hepatitis B Core IgM Antibody Negative Reference range: Negative Performed by: [facility], [address], [place], ?? [place] [address], Tip Stitcher: Nadine Rosa, Ph.D. [facility] 12/08/2009 21:1 0 EDT 12/08/2009 21:15 EDT Cj [facility] CHEMISTRY & BLOOD GA S ORDERABLES Performing Organization Address [facility] de Phone Number [facility] [address] [place] [address] * HEPATITIS B SURFACE ANTIGEN (12/08/2009 21:10 EDT) [facility] Hepatitis B Surface Ag Negative Reference Range: Negative [facility] 12/08/2009 21:1 0 EDT 12/08/2009 21:15 EDT Cj [facility]O CHEMISTRY & BLOOD GA S ORDERABLES Performing Organization Address [facility] Phone Number [facility] [address] [place] [address] * HEPATITIS A TOTAL ANTIBODY (12/08/2009 21:10 EDT) [facility] Hep A Antibody Negative Reference Range: Negative [facility] 12/08/2009 21:1 0 EDT 12/08/2009 21:15 EDT Cj CU[facility]O CHEMISTRY & BLOOD GA S ORDERABLES Performing Organization Address [facility] Co de Phone Number [facility] [address] [place] [address] * GLUCOSE, SERUM (12/08/2009 21:10 EDT) [facility] Glucose, Serum 92 70 - 100 mg/dl [facility] 12/08/2009 21:1 0 EDT 12/08/2009 21:15 EDT Cj [facility]O CHEMISTRY & BLOOD GA S ORDERABLES Performing Organization Address [facility] de Phone Number [facility] [address] [place] [address] * ELECTROLYTES (12/08/2009 21:10 EDT) Sodium 139 136 - 145 mEq/L [facility] Potassium 3.5 3.5 - 5.0 mEq/L [facility] Chloride 103 96 - 110 mEq/L [facility] CO2 29 24 - 32 mEq/L [facility] 12/08/2009 21:1 0 EDT 12/08/2009 21:15 EDT Cj [facility]O CHEMISTRY & BLOOD TX S ORDERABLES Performing Organization Address [facility] Phone Number [facility] [address] [place] [address] * (ABNORMAL) LIVER FUNCTION TESTS (12/08/2009 21:10 EDT) Albumin 3.9 3.4 - 4.9 g/dl [facility] Total Protein 6.3(L) 6.5 - 8.3 g/dl [facility] Total Alkaline Phosphatase 49 38 - 126 U/L [facility] ALT 25 9 - 52 U/L [facility] AST 34 15 - 46 U/L [facility] Unconjugated Bilirubin 0.7 0.1 - 1.1 mg/dl [facility] Conjugated Bilirubin 0.0 0.0 - 0.3 mg/dl [facility] Bilirubin, Total <0.5 0.2 - 1.3 mg/dl [facility] 12/08/2009 21:1 0 EDT 12/08/2009 21:15 EDT Cj CU[facility]O CHEMISTRY & BLOOD TX S ORDERABLES Performing Organization Address [facility]/ZIP Co de Phone Number [facility] [address] [place] [address] * (ABNORMAL) LIPASE (12/08/2009 21:10 EDT) Pathologist [facility] Lipase 295(H) 0 - 250 U/L [facility] 12/08/2009 21:1 0 EDT 12/08/2009 21:15 EDT Cj CU[facility]O CHEMISTRY & BLOOD TX S ORDERABLES Performing Organization Address [facility] Co de Phone Number [facility] [address] [place] [address] * CREATININE (12/08/2009 21:10 EDT) [facility] Creatinine 0.80 0.7 - 1.5 mg/dl [facility] GFR, Calculated >60 ml/min/1.7 3m2 [facility] 12/08/2009 21:1 0 EDT 12/08/2009 21:15 EDT Cj CUETO CHEMISTRY & BLOOD TX S ORDERABLES Performing Organization Address [facility] de Phone Number [facility] [address] [place] [address] * (ABNORMAL) HEMAGRAM AND DIFFERENTIAL (12/08/2009 21:10 EDT) Pathologist [facility] WBC 10.22 4.0 - 12.4 K/cmm [facility] RBC 3.71(L) 3.86 - 5.04 M/cmm [facility] Hemoglobin 13.3 11.6 - 15.2 gm/dl [facility] HCT 37.7 34.9 - 44.4 % [facility] MCV 102(H) 81 - 98 fl [facility] MCH 35.8(H) 26.7 - 33.3 pg [facility] MCHC 35.2 32.1 - 35.9 gm/dl [facility] PLT 165 141 - 320 K/cmm [facility] RDW-CV 12.5 11.7 - 14.6 % [facility] % Neutrophils 90.3(H) 45.5 - 79.7 % [facility] % Lymphocytes 6.5(L) 15.0 - 46.8 % [facility] % Monocytes 1.9 1.8 - 12.0 % [facility] % Eosinophils 1.1 0.6 - 6.9 % [facility] % Basophils 0.2 0.2 - 1.4 % [facility] ABS Neutrophils 9.23(H) 2.20 - 8.85 K/cmm [facility] ABS Lymphs 0.66(L) 1.09 - 3.30 K/cmm [facility] ABS Monocytes 0.19 0.1 - 0.8 K/cmm [facility] ABS Eosinophils 0.11 0.03 - 0.61 K/cmm [facility] ABS Basophils 0.02 0.01 - 0.11 K/cmm [facility] Type of Diff: Automated [facility] 12/08/2009 21:1 0 EDT 12/08/2009 21:15 EDT Cj [facility] PACKAGES & DNA PROBE ORDERABLES [facility] [address] [place] [address] * (ABNORMAL) BUN (12/08/2009 21:10 EDT) BUN 8(L) 10 - 26 mg/dl [facility] 12/08/2009 21:1 0 EDT 12/08/2009 21:15 EDT Cj [facility]O CHEMISTRY & BLOOD GA S ORDERABLES [facility] [address] [place] [address] * HOLD SST (12/08/2009 21:10 EDT) Hold SST Hold for further testing. Specimen will be held for 5 days. [facility] Blood specimen (specimen) 12/08/2009 21:10 EDT 12/08/2009 21:15 EDT [facility] INFO SERVICE AND SUPPORT & PHONE RESULT Performing Organization Address [facility]/ZIP Co de Phone Number [facility] [address] [place] [address] * HOLD PURPLE TOP (12/08/2009 21:10 EDT) Hold Purple Top EDTA for hematology will be discarded after 48 hours, differential not available after 12 hours. [facility] Blood specimen (specimen) 12/08/2009 21:10 EDT 12/08/2009 21:15 EDT [facility] INFO SERVICE AND SUPPORT & PHONE RESULT Performing Organization Address [facility] Co de Phone Number [facility] [address] [place] [address] * HOLD GREEN TOP (12/08/2009 21:10 EDT) Hold Green Top No sample received, floor notified [facility] Blood specimen (specimen) 12/08/2009 21:10 EDT 12/08/2009 21:15 EDT [facility] INFO SERVICE AND SUPPORT & PHONE RESULT Performing Organization Address [facility] Co de Phone Number [facility] [address] [place] [address] * HOLD BLUE TOP (12/08/2009 21:10 EDT) Hold Blue Top Sample for coagulation will be discarded after 4 hours [facility] Blood specimen (specimen) 12/08/2009 21:10 EDT 12/08/2009 21:15 EDT [facility] INFO SERVICE AND SUPPORT & PHONE RESULT Performing Organization Address [facility] Co de Phone Number [facility] [address] [place] [address] documented in this encounter Visit Diagnoses Diagnosis Nausea with vomiting Increased serum lipase level Other nonspecific abnormal serum enzyme levels Jaundice Jaundice, unspecified, not of Lumbar radiculopathy Thoracic or lumbosacral neuritis or radiculitis, unspecified documented in this encounter Administered Medications Inactive Administered Medications - up to 3 most recent administrations Medication Order MAR Action Action Date Dose Rate Site famotidine (PEPCID) 20 mg/2 mL injection 20 mg 20 mg, intravenous, NOW X1, 1 dose, On 12/08/09 at 2215, STAT Given 12/08/2009 22:02 EDT 20 mg ondansetron (PF) (ZOFRAN) injection 4 mg 4 mg, intravenous, NOW X1, 1 dose, On Wed12/08/09 at 2130, STAT Given 12/08/2009 21:20 EDT 4 mg ondansetron (ZOFRAN-ODT) disintegrating tablet 4 mg 4 mg, oral, NOW X1, 1 dose, On Wed12/09/09 at 0200, STAT Given 12/09/2009 2:00 EDT 4 mg ondansetron (ZOFRAN-ODT) disintegrating tablet 4 mg 4 mg, oral, NOW X1, 1 dose, On Wed12/09/09 at 0200, STAT Given 12/09/2009 2:00 EDT 4 mg sodium chloride 0.9 % 1,000 mL BOLUS 1,000 mL, intravenous, Once (Without Time Specified), 1 dose, Starting on Wed12/08/09 at 2130, Until Wed12/08/09 at 2120, STAT Given 12/08/2009 21:20 EDT 1,000 mL sodium chloride 0.9 % 2,000 mL BOLUS 2,000 mL, intravenous, Once (Without Time Specified), 1 dose, Starting on Wed12/08/09 at 2215, Until Wed12/08/09 at 2203, STAT Given 12/08/2009 22:03 EDT 2,000 mL documented in this encounter Active and Recently Administered Medications Times are shown in EDT. Scheduled Medication Order 12/07/2009 12/08/2009 12/09/2009 famotidine (PEPCID) 20 mg/2 mL injection 20 mg (COMPLETED) 20 mg, intravenous, NOW X1, 1 dose, On 12/08/09 at 2215, STAT 2202 (Given - Provider: Miguel Ángel Vilchis RN) ondansetron (PF) (ZOFRAN) injection 4 mg (COMPLETED) 4 mg, intravenous, NOW X1, 1 dose, On 12/08/09 at 2130, STAT 2120 (Given - Provider: Miguel Ángel Vilchis RN) ondansetron (ZOFRAN-ODT) disintegrating tablet 4 mg (COMPLETED) 4 mg, oral, NOW X1, 1 dose, On 12/09/09 at 0200, STAT 0200 (Given - Provid er: Ana Marcelino) ondansetron (ZOFRAN-ODT) disintegrating tablet 4 mg (COMPLETED) 4 mg, oral, NOW X1, 1 dose, On Wed12/09/09 at 0200, STAT 0200 (Given - Provid er: Ana Marcelino) sodium chloride 0.9 % 1,000 mL BOLUS (COMPLETED) 1,000 mL, intravenous, Once (Without Time Specified), 1 dose, Starting on 12/08/09 at 2130, Until 12/08/09 at 2120, STAT 2120 (Given - Provider: Miguel Ángel Vilchis RN) sodium chloride 0.9 % 2,000 mL BOLUS (COMPLETED) 2,000 mL, intravenous, Once (Without Time Specified), 1 dose, Starting on 12/08/09 at 2215, Until 12/08/09 at 2203, STAT 2203 (Given - Provider: Miguel Ángel Vilchis RN) documented in this encounter Care Teams Media Executive Relationship Specialty Start Date End Date Nataly Vilchis MD PhD [address] [place] [phone] PCP - General 08/20/08 11/21/18 documented as of this encounter
--- OUTSIDE RECORDS SUMMARY | 2023-10-19 15:36 | XMS_ITS | Encounter Summary ---
Author Organization [facility] Address [address] [place] [address] Care Team Providers Care Mechanical Service Representative Name Role Phone Miri Vilchis MD PhD Primary Care Provider Encounter Details Date Type Department Care Team (Latest Contact Info) Description 12/25/2009 7:40 EDT - 12/25/2009 18:43 EDT Hospital Encounter [facility] [address] [place], [place] [phone] Chay Hunter MD Discharge Disposition: Home or Self Care Social [...] daily. 09/08/2012 documented as of this encounter Discharge Disposition Disposition Code Departure Means Destination Home or Self Care documented in this encounter Procedure Notes * Inpatient, Physician - 12/25/2009 0000 EDTAssociated Order(s): PROCEDURE REPORTS - SCANNED * Inpatient, Physician - 12/25/2009 0000 EDTAssociated Order(s): PATHOLOGY - SCANNED * Inpatient, Physician - 12/25/2009 0000 EDTAssociated Order(s): ORDERS - SCANNED documented in this encounter OR Notes * Anesthesia Procedure Notes - Inpatient, Physician - 12/25/2009 0000 EDT * Anesthesia Preprocedure Evaluation - Inpatient, Physician - 12/25/2009 0000 EDT documented in this encounter Miscellaneous Notes * Scanned Note-Null - Inpatient, Physician - 12/25/2009 0000 EDT * Scanned Note-Null - Inpatient, Physician - 12/25/2009 0000 EDT * Brief Op Note - Inpatient, Physician - 12/25/2009 0000 EDT documented in this encounter Plan of Treatment Upcoming Encounters Date Type Department Care Team (Late st Contact Info) Description 10/22/2023 13:25 EDT Hospital Encounter [facility] OR [address] [place] [address] Walker Pride MD 111 [facility] [address] [place] [phone] 10/22/2023 13:25 EDT - 10/22/2023 17:00 EDT Surgery [facility] [place] [address] [place], [place] [phone] Walker Pride MD [address] [place] [address], [facility] [address] [place] [phone] Left L34 decompression, redo left L45 decompression [71107 (CPT??)] 11/22/2023 10:00 EDT Post-op Visit [facility] Neurosurgery - [address] [phone] Madiha Hurtado NP [address] [place] [address], [address] [place] [phone] Scheduled Procedures Name Priority Associated Diagnoses Date/Ti me LAMINECTOMY, SPINE, LUMBAR, 1 LEVEL, WITH FORAMINOTOMY OR FACETECTOMY Lumbar radiculopathy 10/22/2023 13:25 EDT LAMINECTOMY, SPINE, WITH FACETECTOMY AND FORAMINOTOMY, ADDITIONAL LEVEL FOLLOWING INITIAL LEVEL Lumbar radiculopathy 10/22/2023 13:25 EDT documented as of this encounter Procedures Procedure Name Priority Date/Time Associated Diagnosis Comments PROCEDURE REPORTS - SCANNED 12/26/2009 10:40 EDT ORDERS - SCANNED 12/26/2009 10:4 0 EDT PATHOLOGY - SCANNED 12/26/2009 1 0:40 EDT documented in this encounter Results * PROCEDURE REPORTS - SCANNED (12/26/2009 10:40 EDT) 12/26/2009 10:4 0 EDT Narrative Procedure Note Inpatient, Physician - 12/25/2009 0:00 EDT Physician Inpatient MD PROCEDURE/MINOR S URGICAL ORDERABLES Performing Organization Address [facility] Co de Phone Number POINT OF CARE * ORDERS - SCANNED (12/26/2009 10:40 EDT) 12/26/2009 10:4 0 EDT Narrative Procedure Note Inpatient, Physician - 12/25/2009 0:00 EDT Physician Inpatient MD ADMISSION ORDERAB LES Performing Organization Address [facility] Co de Phone Number POINT OF CARE * PATHOLOGY - SCANNED (12/26/2009 10:40 EDT) 12/26/2009 10:4 0 EDT Narrative Procedure Note Inpatient, Physician - 12/25/2009 0:00 EDT Physician Inpatient MD LAB INFO SERVICE AND SUPPORT & PHONE RESULT Performing Organization Address [facility] Co de Phone Number POINT OF CARE documented in this encounter Visit Diagnoses Not on filedocumented in this encounter Care Teams Mechanical Service Representative Relationship Specialty Start Date End Date Miri Vilchis MD PhD [address] [place] [phone] PCP - General 08/20/08 11/21/18 documented as of this encounter
--- OUTSIDE RECORDS SUMMARY | 2023-10-19 15:36 | XMS_ITS | Encounter Summary ---
Author Organization [facility] Address [address] [place] [address] Care Team Providers Care Tread Tuber Machine Operator Name Role Phone Miri Vilchis MD PhD Primary Care Provider Reason for Visit * Reason Onset Date Comments Medications Refill 04/03/2010 Encounter Details Date Type Department Care Team (Late st Contact Info) Description 04/03/[address] [facility] Adult Primary Care - [address] [address] Miri Vilchis MD PhD [address] [place] [phone] Medications Refill Social History Tobacco Use [...] Miscellaneous Notes * Telephone Encounter - Patt Duong RN - 04/04/2010 1439 EST Rx request from Pharmacy for OCP that was discontinued in 07/22. Pt currently on a OCP and has enough refills through 07/23. * Telephone Encounter - Hortencia Sun - 04/03/2010 1356 EST Rec'd fax from pharmacy for refill documented in this encounter Plan of Treatment Upcoming Encounters Date Type Department Care Team (Late st Contact Info) Description 10/22/2023 13:25 EDT Hospital Encounter [facility] OR [address] [place] [phone] Walker Pride MD [address] [place] [phone] 10/22/2023 13:25 EDT - 10/22/2023 17:00 EDT Surgery [facility] OR [address] [place] [address] [phone] Walker Pride MD [address] [place] [phone] Left L34 decompression, redo left L45 decompression [12223 (CPT??)] 11/22/2023 10:00 EDT Post-op Visit [facility] Neurosurgery - [address] [phone] Madiha Hurtado NP [address] [place] [phone] Scheduled Procedures Name Priority Associated Diagnoses Date/Ti me LAMINECTOMY, SPINE, LUMBAR, 1 LEVEL, WITH FORAMINOTOMY OR FACETECTOMY Lumbar radiculopathy 10/22/2023 13:25 EDT LAMINECTOMY, SPINE, WITH FACETECTOMY AND FORAMINOTOMY, ADDITIONAL LEVEL FOLLOWING INITIAL LEVEL Lumbar radiculopathy 10/22/2023 13:25 EDT documented as of this encounter Visit Diagnoses Not on filedocumented in this encounter Care Teams Tread Tuber Machine Operator Relationship Specialty Start Date End Date Miri Vilchis MD PhD [address] [place] [phone] PCP - General 08/20/08 11/21/18 documented as of this encounter
--- OUTSIDE RECORDS SUMMARY | 2023-10-19 15:36 | XMS_ITS | Encounter Summary ---
Author Organization [facility] Address [address] [place] [address] Care Team Providers Care Marine Engineering Consultant Name Role Phone Miri Vilchis MD PhD Primary Care Provider Reason for Visit * Reason Onset Date Comments Nutrition Counseling 09/11/2009 Encounter Details Date Type Department Care Team (Late st Contact Info) Description 09/11/2009 Telephone [facility] Adult Primary Care - [address] [address] Miri Vilchis MD PhD [address] [place] [phone] Nutrition Counseling Social History Tobacco Use Types Packs/Day Years [...] encounter Miscellaneous Notes * Telephone Encounter - Ashli Ballard - 09/13/2009 1521 EDT Spoke with mother and gave her Destinee's message. * Telephone Encounter - Ashli Ballard - 09/13/2009 1152 EDT Left message for mother to call back. * Telephone Encounter - Destinee Montague PA-C - 09/13/2009 1114 EDT I think that most pts could be seen in 1 visit as a consult And a follow up visit for this pt's symptoms. If this pt and her mother want her to have several visits with nutrition, I think that is OK.It is up to nutrition to schedule as they are the provider for these visits. I did discuss with mother and pt that the insurance is not likely to cover this anyway. * Telephone Encounter - Ashli Ballard - 09/11/2009 1201 EDT Mother called upset that nutritional counseling appt are not on-going. Insurance is [employer] and apparently they will not cover them unless there is a series of appts. Mother states that you also feel they should be on-going so the Nutrition dept should be scheduling them that way. documented in this encounter Plan of Treatment Upcoming Encounters Date Type Department Care Team (Late st Contact Info) Description 10/22/2023 13:25 EDT Hospital Encounter [facility] OR [address] [place] [phone] Walker Pride MD [address] [place] [address] [address] [place] [phone] 10/22/2023 13:25 EDT - 10/22/2023 17:00 EDT Surgery [facility] OR [address] [place] [phone] Walker Pride MD [address] [place] [address] [address] [place] [phone] Left L34 decompression, redo left L45 decompression [03627 (CPT??)] 11/22/2023 10:00 EDT Post-op Visit [facility] Neurosurgery - [facility] [address] [place] [address] Madiha Hurtado, KARIME 111 [facility], [address] [place] [phone] Scheduled Procedures Name Priority Associated Diagnoses Date/Ti me LAMINECTOMY, SPINE, LUMBAR, 1 LEVEL, WITH FORAMINOTOMY OR FACETECTOMY Lumbar radiculopathy 10/22/2023 13:25 EDT LAMINECTOMY, SPINE, WITH FACETECTOMY AND FORAMINOTOMY, ADDITIONAL LEVEL FOLLOWING INITIAL LEVEL Lumbar radiculopathy 10/22/2023 13:25 EDT documented as of this encounter Visit Diagnoses Not on filedocumented in this encounter Care Teams Marine Engineering Consultant Relationship Specialty Start Date End Date Miri Vilchis MD PhD [address] [place] [phone] PCP - General 08/20/08 11/21/18 documented as of this encounter
--- OUTSIDE RECORDS SUMMARY | 2023-10-19 15:36 | XMS_ITS | Encounter Summary ---
Author Organization [facility] Address [address] [place] [address] Care Team Providers Care Release Of Information Clerk Name Role Phone Nataly Vilchis MD PhD Primary Care Provider Encounter Details Date Type Department Care Team (Late st Contact Info) Description 01/08/2010 Results Only [facility] Adult Primary Care - [address] [address] Nataly Vilchis MD PhD [address] [place] [phone] Social History Tobacco Use Types Packs/Day [...] [facility] OR [address] [place], [place] [phone] Walker Pride MD 111 [facility], Level [address] [place] [phone] 10/22/2023 13:25 EDT - 10/22/2023 17:00 EDT Surgery [facility] [place] [address] [place], [place] [phone] Walker Pride MD 111 [facility], Level [address] [place] [phone] Left L34 decompression, redo left L45 decompression [[id number] (CPT??)] 11/22/2023 10:00 EDT Post-op Visit [facility] Neurosurgery - [address] [phone] Madiha Hurtado NP 111 [facility], [facility], [address] [place] [phone] Scheduled Procedures Name Priority Associated Diagnoses Date/Ti me LAMINECTOMY, SPINE, LUMBAR, 1 LEVEL, WITH FORAMINOTOMY OR FACETECTOMY Lumbar radiculopathy 10/22/2023 13:25 EDT LAMINECTOMY, SPINE, WITH FACETECTOMY AND FORAMINOTOMY, ADDITIONAL LEVEL FOLLOWING INITIAL LEVEL Lumbar radiculopathy 10/22/2023 13:25 EDT documented as of this encounter Procedures Procedure Name Priority Date/Time Associated Diagnosis Comments CYTOPATHOLOGY Routine 01/08/2010 0:00 EDT documented in this encounter Results * CYTOPATHOLOGY (01/08/2010 0:00 EDT) Pathology Report: CYTOPATHOLOGY REPORT ? Reports generated via electronic interface contain original data; ? however they are lacking the format of the original report. ? Caution should be taken when reading/interpreti ng unformatted reports. ? Name: ? SARAH LANGE ? Accession #: ? [id number] ? : ? 1990 (Age: 19) ??F ?Collect Date: ? 01/08/2010 ? Location: ? [facility] ? Receive Date: ? 01/09/2010 ? Provider: ?NATALY A KERRI MD ? Copy to: ? Specimen/Source: ?Pap Test, Source Not Provided, ThinPrep Imaging System ?? with manual evaluation ? Last Menstrual Period: ? 10/15/10 ? Hormonal/Contracep tive Status: ? Yes ? SPECIMEN ADEQUACY ? Satisfactory for Evaluation ? - transformation zone component present ? GENERAL CATEGORIZATION ? Negative for Intraepithelial Lesion or Malignancy ? Document reviewed and electronically signed by: ? Molly [place], [place](ASCP) ? Report Date: ??01/13/2010 10:17 ? End of Report ? [facility] 01/08/2010 01/09/2010 Nataly Vilchis MD PhD PATHOLOGY ORDER [facility] [address] [place] [address] documented in this encounter Visit Diagnoses Not on filedocumented in this encounter Care Teams Release Of Information Clerk Relationship Specialty Start Date End Date Nataly Vilchis MD PhD [address] [place] [phone] PCP - General 08/20/08 11/21/18 documented as of this encounter
--- OUTSIDE RECORDS SUMMARY | 2023-10-19 15:36 | XMS_ITS | Encounter Summary ---
Author Organization [facility] Address [address] [place] [address] Care Team Providers Care Terminal Block Assembler Name Role Phone Miri Vilchis MD PhD Primary Care Provider Reason for Visit * Reason Onset Date Comments Medications Refill 04/18/2010 Encounter Details Date Type Department Care Team (Late st Contact Info) Description 04/18/2010 Refill [facility] Adult Primary Care - [address] [address] Miri Vilchis MD PhD [address] [place] [phone] Medications Refill Social History Tobacco [...] Encounter - Cookie Ronquillo RN - 04/18/2010 1742 EST *see other refill encounter 04/17/10 Closing this encounter. * Telephone Encounter - Lubna Evans - 04/18/2010 1502 EST Orthotricyclen Low, 3 packs, as directed, #84. Please call in to [facility] [address] documented in this encounter Plan of Treatment Upcoming Encounters Date Type Department Care Team (Late st Contact Info) Description 10/22/2023 13:25 EDT Hospital Encounter [facility] OR [address] [place] [phone] Walker Pride MD [address] [place] [phone] 10/22/2023 13:25 EDT - 10/22/2023 17:00 EDT Surgery [facility] OR [address] [place] [phone] Walker Pride MD [address] [place] [phone] Left L34 decompression, redo left L45 decompression [00209 (CPT??)] 11/22/2023 10:00 EDT Post-op Visit [facility] Neurosurgery - [address] [phone] Madiha Hurtado NP [address] [place] [phone] Scheduled Procedures Name Priority Associated Diagnoses Date/Ti me LAMINECTOMY, SPINE, LUMBAR, 1 LEVEL, WITH FORAMINOTOMY OR FACETECTOMY Lumbar radiculopathy 10/22/2023 13:25 EDT LAMINECTOMY, SPINE, WITH FACETECTOMY AND FORAMINOTOMY, ADDITIONAL LEVEL FOLLOWING INITIAL LEVEL Lumbar radiculopathy 10/22/2023 13:25 EDT documented as of this encounter Visit Diagnoses Not on filedocumented in this encounter Care Teams Terminal Block Assembler Relationship Specialty Start Date End Date Miri Vilchis MD PhD [address] [place] [phone] PCP - General 08/20/08 11/21/18 documented as of this encounter
--- OUTSIDE RECORDS SUMMARY | 2023-10-19 15:36 | XMS_ITS | Encounter Summary ---
Author Organization [facility] Address [address] [place] [address] Care Team Providers Care Education Director Name Role Phone Miri Vilchis MD PhD Primary Care Provider Reason for Visit * Reason Onset Date Comments Results 08/28/2013 Encounter Details Date Type Department Care Team (Late st Contact Info) Description 08/28/2013 Telephone [facility] Adult Primary Care - [address] [phone] Yohana Roger RN Results Social History Tobacco Use Types Packs/Day [...] encounter Miscellaneous Notes * Telephone Encounter - Yohana Roger RN - 08/28/2013 1031 EDT Chart opened by mistake no interventions made * Telephone Encounter - Yohana Roger RN - 08/28/2013 0802 EDT Wrong chart documented in this encounter Plan of Treatment Upcoming Encounters Date Type Department Care Team (Late st Contact Info) Description 10/22/2023 13:25 EDT Hospital Encounter [facility] OR [address] [place] [phone] Walker Pride MD [address] [place] [phone] 10/22/2023 13:25 EDT - 10/22/2023 17:00 EDT Surgery [facility] OR [address] [place] [address] [phone] Walker Pride MD [address] [place] [phone] Left L34 decompression, redo left L45 decompression [18497 (CPT??)] 11/22/2023 10:00 EDT Post-op Visit [facility] Neurosurgery - [address] [phone] Madiha Hurtado NP [address] [place] [phone] Scheduled Procedures Name Priority Associated Diagnoses Date/Ti me LAMINECTOMY, SPINE, LUMBAR, 1 LEVEL, WITH FORAMINOTOMY OR FACETECTOMY Lumbar radiculopathy 10/22/2023 13:25 EDT LAMINECTOMY, SPINE, WITH FACETECTOMY AND FORAMINOTOMY, ADDITIONAL LEVEL FOLLOWING INITIAL LEVEL Lumbar radiculopathy 10/22/2023 13:25 EDT documented as of this encounter Visit Diagnoses Not on filedocumented in this encounter Care Teams Education Director Relationship Specialty Start Date End Date Miri Vilchis MD PhD [address] [place] [phone] PCP - General 08/20/08 11/21/18 documented as of this encounter
--- OUTSIDE RECORDS SUMMARY | 2023-10-19 15:36 | XMS_ITS | Encounter Summary ---
Author Organization [facility] Address [address] [place] [address] Care Team Providers Care Pleat Patternmaker Name Role Phone Miri Vilchis MD PhD Primary Care Provider Reason for Visit * Reason Comments Abdominal Pain Encounter Details Date Type Department Care Team (Late st Contact Info) Description 05/03/2017 15:45 EST Office Visit [facility] Adult Primary Care - [address] [phone] Bri Murphy PA-C [id number] [facility] [address] [place] [phone] Right lower quadrant abdominal pain (Primary Dx); Abdominal cramping; Cervical cancer screening Discharge Disposition: Auto Discharge Social History Tobacco [...] Reading Time Taken Comments Blood Pressure 110/70 05/03/2017 1529 EST Pulse 60 05/03/2017 1529 EST Temperature 36.8 ??C (98.2 ??F) 05/03/2017 1529 EST Respiratory Rate 12 05/03/2017 1529 EST Oxygen Saturation - - Inhaled Oxygen Concentration - - Weight 66.2 kg (146 lb) 05/03/2017 1529 EST Height 165.1 cm (5' 5) 05/03/2017 1529 EST Body Mass Index 24.3 05/03/2017 1529 EST documented in this encounter Discharge Diagnoses Diagnosis R10.31 Right lower quadrant pain-R10.31[ICD-10-CM] R10.9 Unspecified abdominal pain-R10.9[ICD-10-CM] Z12.4 Encounter for screening for malignant neoplasm of cervix-Z12.4[ICD-10-CM] documented in this encounter Discharge Disposition Disposition Code Departure Means Destination Auto Discharge documented in this encounter Progress Notes * Bri Murphy PA - 05/03/2017 1545 EST Subjective: Patient ID: Teri Toribio is an 26 y.o. female. Chief Complaint Patient presents with ??? Abdominal Pain HPI Comments: Teri developed right lower quadrant pain a week ago today after sexual intercourse. Since that time she has had intermittent stabbing sharp left lower abdominal pain. It is not constant so she is not taking anything for it. It typically worsens with activity so is painful when she runs. It did wake her from sleep Wednesday night. The pain does not radiate. She has also been experiencing a cramping sensation in her pelvic region. She has had this from time to time ever since she had the Mirena IUD placed a year ago at [facility]. She has not had her period since having the IUD placed. The cramping sensation is intermittent as well. She felt nauseous over the weekend but no vomiting. Her appetite is normal. She denies any fever or chills. She did get a little sweaty overthe weekend. She denies any pain elsewhere. Her bowels are moving normally. No urinary frequency, urgency or dysuria. No vaginal bleeding. No vaginal discharge. She is in a monogamous relationship and is not concerned about STDs. She typically can feel the string from IUD but cannot at this time. She is overdue for a Pap smear. Her last one was in 2012. She denies any history of previous benign pathology. Patient Active Problem List Diagnosis ??? Contraceptive management ??? Constipation by delayed colonic transit ??? Obsessive-compulsive disorder Outpatient Prescriptions Marked as Taking for the 05/03/17 encounter (Office Visit) with Bri Murphy PA [...] Cuff Sizes: Adult, regular) Pulse 60 Temp 36.8 ??C (98.2 ??F) (Tympanic) Resp 12 Ht 165.1 cm (65) Wt 66.2 kg (146 lb) LMP Comment: IUD BMI 24.3 kg/m2 Physical Exam Constitutional: She appears well-developed and well-nourished. No distress. Pulmonary/Chest: Effort normal and breath sounds normal. Abdominal: Soft. Normal appearance and bowel sounds are normal. She exhibits no distension. There is tenderness in the right lower quadrant and suprapubic area. There is no rigidity, no rebound, no guarding, no CVA tenderness and no tenderness at McBurney's point. Genitourinary: Uterus normal. Pelvic exam was performed with patient supine. There is no rash, tenderness or lesion on the right labia. There is no rash, tenderness or lesion on the left labia. Cervix exhibits discharge (scant brownish). Cervix exhibits no motion tenderness and no friability. Rightadnexum displays tenderness and fullness. Right adnexum displays no mass. Left adnexum displays no mass, no tenderness and no fullness. No erythema, tenderness or bleeding in the vagina. No vaginal discharge found. Genitourinary Comments: IUD string in place Results for orders placed or performed in visit on 05/03/17 POCT URINE TEST Result Value Ref Range Test, Urine, POC Negative . Control Line Present Yes Background Clear? Yes Assessment / Plan: Teri was seen today for abdominal pain. Diagnoses and all orders for this visit: Patient with intermittent right lower abdominal pain and suprapubic cramping. Exam remarkable for pain over the right ovarian region. IUD string in place. Believe she is experiencing a right ovarian cyst. A Pap was done today as she was overdue. Will obtain ultrasound to further evaluate for ovarian cyst and to make sure IUD with proper placement. Patient educated about possible appendicitis and to go to the ED if she develops any fever, worsening abdominal pain or vomiting. Right lower quadrant abdominal pain - RAD US PELVIS TRANSABDOMINAL AND TRANSVAGINAL Abdominal cramping - POCT Urine Test - RAD US PELVIS TRANSABDOMINAL AND TRANSVAGINAL Cervical cancer screening - Pap Test - Order Only Portions of this document have been prepared with speech recognition software or keyboard medical data entry clerk techniques. Minor irregularities or keyboarding misprints may be present. ROM Sánchez 05/03/2017 16:16 * Teri Yun - 05/03/2017 1545 EST POCT UPT done with NEG(-) results. I was supervised by Julio C CUETO who was present and immediately available in the office suite. Teri Yun 05/03/2017 15:46 documented in this encounter Plan of Treatment Upcoming Encounters Date Type Department Care Team (Late st Contact Info) Description 10/22/2023 13:25 EDT Hospital Encounter [facility] OR [address] [place] [phone] Walker Pride MD [address] [place] [phone] 10/22/2023 13:25 EDT - 10/22/2023 17:00 EDT Surgery [facility] OR [address] [place] [phone] Walker Pride MD [address] [place] [phone] Left L34 decompression, redo left L45 decompression [00772 (CPT??)] 11/22/2023 10:00 EDT Post-op Visit [facility] Neurosurgery - [place] [address] [place] [address] Madiha Hurtado NP [address] [facility], [facility], [address] [place] [phone] Scheduled Orders Name Type Priority Associated Diagnoses Orde r Schedule PAP TEST- ORDER ONLY Pathology Routine Cervical cancer screening Ordered: 05/03/2017 Scheduled Procedures Name Priority Associated Diagnoses Date/Ti me LAMINECTOMY, SPINE, LUMBAR, 1 LEVEL, WITH FORAMINOTOMY OR FACETECTOMY Lumbar radiculopathy 10/22/2023 13:25 EDT LAMINECTOMY, SPINE, WITH FACETECTOMY AND FORAMINOTOMY, ADDITIONAL LEVEL FOLLOWING INITIAL LEVEL Lumbar radiculopathy 10/22/2023 13:25 EDT documented as of this encounter Procedures Procedure Name Priority Date/Time Associated Diagnosis Comments RAD US PELVIS, TRANSVAGINAL, AND LIMITED DOPPLER STAT 05/05/2017 12:11 EST POCT TEST, VISUAL READ Routine 05/03/2017 15:38 EST Abdominal cramping documented in this encounter Results * RAD US PELVIS, TRANSVAGINAL, AND LIMITED DOPPLER (05/05/2017 12:11 EST) Anatomical Region Laterality Modality Other 05/05/2017 12:1 1 EST 05/05/2017 15:21 EST Narrative 05/05/2017 15:21 EST RAD US PELVIS, TRANSVAGINAL, AND LIMITED DOPPLER 05/05/2017 12:11 PM Signs and Symptoms: ??R10.31-Right lower quadrant pain-ICD-10 R10.9-Unspecified abdominal pain-ICD-10; New onset RLQ pain and crampiness in pelvic region. Has IUD. Comparison: Pelvic ultrasound July 24, 2009. CT abdomen and pelvis April 07, 2009. Technique: Still and cine ultrasound images of the pelvis were obtained transabdominally and transvaginally with Doppler augmentation where necessary. Findings: The uterus is anteverted. It measures ??9.7 x 2.9 x 4.8 cm. Its myometrium is homogenous in echotexture. There is a intrauterine device in place.. The right ovary measures 3.9 x 3.0 x 3.7 cm with a total volume of 22.4 mL. It demonstrates normal color Doppler flow and normal venous flow on spectral tracing. There are multiple normal-appearing follicles in the right ovary, the largest measures 1.2 cm. The left ovary measures 3.3 x 1.5 x 2.2 cm with a total volume of 5.3 mL. 5.6 mL It demonstrates normal color Doppler flow and normal venous flow on spectral tracing. Normal follicles are seen. There is no free fluid in the cul-de-sac. ?? Impression: 1. ??Normal pelvic ultrasound. 2. ??Intra-uterine device in place in normal position. I have personally reviewed the images and the above interpretation and agree with the findings. Procedure Note Troy Tate MD - 05/05/2017 RAD US PELVIS, TRANSVAGINAL, AND LIMITED DOPPLER 05/05/2017 12:11 PM Signs and Symptoms: R10.31-Right lower quadrant pain-ICD-10 R10.9-Unspecified abdominal pain-ICD-10; New onset RLQ pain and crampiness in pelvic region. Has IUD. Comparison: Pelvic ultrasound July 24, 2009. CT abdomen and pelvis April 07, 2009. Technique: Still and cine ultrasound images of the pelvis were obtained transabdominally and transvaginally with Doppler augmentation where necessary. Findings: The uterus is anteverted. It measures 9.7 x 2.9 x 4.8 cm. Its myometrium is homogenous in echotexture. There is a intrauterine device in place.. The right ovary measures 3.9 x 3.0 x 3.7 cm with a total volume of 22.4 mL. It demonstrates normal color Doppler flow and normal venous flow on spectral tracing. There are multiple normal-appearing follicles in the right ovary, the largest measures 1.2 cm. The left ovary measures 3.3 x 1.5 x 2.2 cm with a total volume of 5.3 mL. 5.6 mL It demonstrates normal color Doppler flow and normal venous flow on spectral tracing. Normal follicles are seen. There is no free fluid in the cul-de-sac. Impression: 1. Normal pelvic ultrasound. 2. Intra-uterine device in place in normal position. I have personally reviewed the images and the above interpretation and agree with the findings. Bri Murphy PA-C IMG US ORDERABLES * POCT URINE TEST (05/03/2017 15:38 EST) Test, Urine, POC Negative . POINT OF CARE [facility] Control Line Present Yes POINT OF CARE [facility] Background Clear? Yes POINT OF CARE [facility] Urine specimen (specimen) 05/03/2017 15:38 EST Bri Murphy PA-C POINT OF CARE TEST O RDERABLES POINT OF CARE [facility] documented in this encounter Visit Diagnoses Diagnosis Right lower quadrant abdominal pain- Primary Abdominal pain, right lower quadrant Abdominal cramping Abdominal pain, unspecified site Cervical cancer screening Screening for malignant neoplasm of the cervix Lumbar radiculopathy Thoracic or lumbosacral neuritis or radiculitis, unspecified documented in this encounter Discontinued Medications Medication Sig Discontinue Reason Start Date End Da te doxycycline (VIBRA-TABS) 100 mg tablet Take 2 Tabs by mouth once for 1 dose. Patient Stopped Taking 06/29/2016 05/03/2017 cyclobenzaprine (FLEXERIL) 5 mg tablet Take 1 tab every 6 hrs during the day, 2 tabs at bedtime prn neck pain Patient Stopped Taking 05/09/2015 05/03/2017 documented as of this encounter Historical Medications * This list may reflect changes made after this encounter. Medication Sig Dispensed Refills Start Date End Date levonorgestreL (MIRENA) 20 mcg/24 hours (8 yrs) 52 mg IUD 1 Each by intrauterine route Once. 2017 added in this encounter Care Teams Pleat Patternmaker Relationship Specialty Start Date End Date Miri Vilchis MD PhD [address] [place] [phone] PCP - General 08/20/08 11/21/18 documented as of this encounter
--- OUTSIDE RECORDS SUMMARY | 2023-10-19 15:36 | XMS_ITS | Encounter Summary ---
Author Organization [facility] Address [address] [place] [address] Care Team Providers Care Process Coordinator Name Role Phone Nataly Vilchis MD PhD Primary Care Provider Reason for Visit * Reason Comments Gynecologic Exam PAP screen GI Problem GI issues x months, nauseas, upset stomach, Follow-up colo with [facility], Flu Vaccine pt requests flu shot Encounter Details Date Type Department Care Team (Late st Contact Info) Description 01/08/2010 13:30 EDT Office Visit [facility] Adult Primary Care - [address] [phone] Nataly Vilchis MD PhD [address] [place] [phone] Screening for malignant neoplasm of the cervix (Primary Dx); Constipation; Nausea; Anxiety; Depression; Need for prophylactic vaccination and inoculation against influenza; Screen for STD (sexually transmitted disease) Social History Tobacco Use Types Packs/Day Years [...] Sign Reading Time Taken Comments Blood Pressure 88/58 01/08/2010 1341 EDT Pulse 72 01/08/2010 1341 EDT Temperature - - Respiratory Rate 20 01/08/2010 1341 EDT Oxygen Saturation - - Inhaled Oxygen Concentration - - Weight 51.3 kg (113 lb) 01/08/2010 1341 EDT Height 163.8 cm (5' 4.5) 01/08/2010 1341 EDT Body Mass Index 19.1 01/08/2010 1341 EDT documented in this encounter Ordered Prescriptions Prescription Sig Dispensed Refills Start Date End Da te ondansetron (ZOFRAN-ODT) 4 mg disintegrating tabletIndications:Nausea Take 1 Tab by mouth every 8 hours as needed for Nausea. 15 Tab 0 01/08/2010 02/28/2010 omeprazole (PRILOSEC) 20 mg capsuleIndications:Nausea Take 1 Cap by mouth daily. 30 Cap 3 01/08/2010 09/08/2012 sertraline (ZOLOFT) 50 mg tabletIndications:Anxiety,D epression Take 1 Tab by mouth daily. 30 Tab 3 01/08/2010 04/07/2010 documented in this encounter Progress Notes * Teri Suh Ling - 01/08/2010 1434 EDT I was supervised by who was present and immediately available in the office suite. NATALY VILCHIS MD,PHD 01/08/2010 18:05 Subjective: Patient ID: Teri Toribio is an 19 y.o. female. Chief Complaint Patient presents with ??? Gynecologic Exam PAP screen ??? GI Problem GI issues x months, nauseas, upset stomach, ??? Follow-up colo with [facility], ??? Flu Vaccine pt requests flu shot HPI Patient Active Problem List Diagnoses Code ??? Contraceptive management V25.9B ??? Constipation by delayed colonic transit 564.01A No past medical history on file. Current outpatient prescriptions ordered prior to encounter Medication Sig Dispense Refill ??? norgestimate-ethinyl estradiol (ORTHO-CYCLEN) 0.25-35 mg-mcg per tablet Take 1 Tab by mouth daily. 1 Package 11 ??? PEG 3350-Electrolytes (MIRALAX) 17 gram packet Take 17 g by mouth 3 times daily. No Known Allergies Social History Substance Use Topics ??? Tobacco Use: Never ??? Alcohol Use: No ROS - See HPI Objective: BP 88/58 Pulse 72 Resp 20 Ht 163.8 cm (64.5) Wt 51.256 kg (113 lb) LMP 12/27/2009 Physical Exam Assessment: Depression and anxiety - will start zoloft, rov 1 month. Nausea - may be secondary to acid reflux and no trial of ppi. May be secondary to anxiety. Plan: Teri was seen today for gynecologic exam, gi problem, follow-up and flu vaccine. Diagnoses and associated orders for this visit: Screening for malignant neoplasm of the cervix - Pap Test Constipation Nausea - omeprazole (PRILOSEC) 20 mg capsule; Take 1 Cap by mouth daily. - ondansetron (ZOFRAN-ODT) 4 mg disintegrating tablet; Take 1 Tab by mouth every 8 hours as needed for Nausea. Anxiety - sertraline (ZOLOFT) 50 mg tablet; Take 1 Tab by mouth daily. Depression - sertraline (ZOLOFT) 50 mg tablet; Take 1 Tab by mouth daily. Need for prophylactic vaccination and inoculation against influenza - Flu vaccine greater than or equal to 3yo preservative free IM Screen for std (sexually transmitted disease) - Chlamydia/GC Amplified * Nataly Vilchis MD PhD - 01/08/2010 1408 EDT Subjective: Patient ID: Teri Toribio is an 19 y.o. female. Chief Complaint Patient presents with ??? Gynecologic Exam PAP screen ??? GI Problem GI issues x months, nauseas, upset stomach, ??? Follow-up colo with [facility], ??? Flu Vaccine pt requests flu shot HPI Comments: Constipation Nausea Teri is here with her mother in follow up after GI evaluation. Since March, she has had a very extensive evaluation for constipaton, nausea. This has included multiple labs and upper and lower endoscopy. Has BM daily. Taking miralax Since January 2009, she has also had frequent urination with negative evaluation re UTI and . PT for urination in July to summer. Tried bladder relaxants - without effect. Urinates every 60 to 90 min. No caffeine, no juice, drinks seltzer. Has lost weight. Does regular exercise and feels better after exercise. Appetite good except when she has nausea. Nausea continues. Has never tried antiacid. Sees counselor at [facility]. Mood low. Has anxiety. Recently broke up with boyfriend but she feels ok about that. No history of sexual abuse. Has been sexually active and is also here for pap. Gynecologic Exam Associated symptoms include nausea. Pertinent negatives include no chest pain, chills, coughing, fever or myalgias. GI Problem Associated symptoms include constipation, frequency, nausea and weight loss. Pertinent negatives include no dysuria, fever, hematuria or myalgias. Patient Active Problem List Diagnoses Code ??? Contraceptive management V25.9B ??? Constipation by delayed colonic transit 564.01A History reviewed. No pertinent past medical history. Current outpatient prescriptions ordered prior to encounter [...] No Review of Systems Constitutional: Positive for weight loss. Negative for fever, chills and malaise/fatigue. Respiratory: Negative for cough. Cardiovascular: Negative for chest pain. Gastrointestinal: Positive for nausea and constipation. Genitourinary: Positive for urgency and frequency. Negative for dysuria and hematuria. Musculoskeletal: Negative for myalgias. Psychiatric/Behavioral: Positive for depression. The patient is nervous/anxious. - See HPI Objective: BP 88/58 Pulse 72 Resp 20 Ht 163.8 cm (64.5) Wt 51.256 kg (113 lb) LMP 12/27/2009 Physical Exam Constitutional: She is oriented to person, place, and time. She appears well- developed and well-nourished. No distress. HENT: Head: Normocephalic. Neck: Normal range of motion. Neck supple. No thyromegaly present. Cardiovascular: Normal rate, regular rhythm and normal heart sounds. No murmur heard. Pulmonary/Chest: Effort normal and breath sounds normal. No respiratory distress. She has no rales. Abdominal: Soft. Bowel sounds are normal. She exhibits no distension and no mass. Tenderness is present. Mild tender at epigastric area Genitourinary: Vagina normal. No discharge found. Cervix visualized and pap performed. Bimanual exam without adnexal masses Lymphadenopathy: She has no cervical adenopathy. Neurological: She is alert and oriented to person, place, and time. Skin: Skin is warm and dry. Psychiatric: She has a normal mood and affect. Her behavior is normal. Judgment and thought contentnormal. Tearful Assessment: Plan: Teri was seen today for gynecologic exam, gi problem, follow-up and flu vaccine. Diagnoses and associated orders for this visit: Screening for malignant neoplasm of the cervix - Pap Test documented in this encounter Plan of Treatment Upcoming Encounters Date Type Department Care Team (Late st Contact Info) Description 10/22/2023 13:25 EDT Hospital Encounter [facility] OR [address] [place] [phone] Walker Pride MD [address] [place] [phone] 10/22/2023 13:25 EDT - 10/22/2023 17:00 EDT Surgery [facility] OR [address] [place] [phone] Walker Pride MD [address] [place] [phone] Left L34 decompression, redo left L45 decompression [19778 (CPT??)] 11/22/2023 10:00 EDT Post-op Visit [facility] Neurosurgery - [address] [phone] Madiha Hurtado NP [address] [facility], [address] [place] [phone] Scheduled Orders Name Type Priority Associated Diagnoses Orde r Schedule PAP TEST- ORDER ONLY Pathology Routine Screening for malignant neoplasm of the cervix Ordered: 01/08/2010 Scheduled Procedures Name Priority Associated Diagnoses Date/Ti me LAMINECTOMY, SPINE, LUMBAR, 1 LEVEL, WITH FORAMINOTOMY OR FACETECTOMY Lumbar radiculopathy 10/22/2023 13:25 EDT LAMINECTOMY, SPINE, WITH FACETECTOMY AND FORAMINOTOMY, ADDITIONAL LEVEL FOLLOWING INITIAL LEVEL Lumbar radiculopathy 10/22/2023 13:25 EDT documented as of this encounter Procedures Procedure Name Priority Date/Time Associated Diagnosis Comments CHLAMYDIA/N. GONORRHOEAE AMPLIFIED NUCLEIC ACID Routine 01/08/2010 14:42 EDT Screen for STD (sexually transmitted disease) documented in this encounter Results * CHLAMYDIA/GC AMPLIFIED (01/08/2010 14:42 EDT) Specimen Description Cervix [facility] Chlamydia Result No Chlamydia trachomatis DNA detected by hris manager mediated amplification. [facility] GC Result No Neisseria gonorrhoeae DNA detected by hris manager mediated amplification. [facility] Specimen of unknown material (specimen) 01/08/2010 14:42 EDT 01/08/2010 17:47 EDT Nataly Vilchis MD PhD MICROBIOLOGY - GENERAL ORDERABLES [facility] [address] [place] [address] documented in this encounter Visit Diagnoses Diagnosis Screening for malignant neoplasm of the cervix- Primary Constipation Unspecified constipation Nausea Nausea alone Anxiety Anxiety state, unspecified Depression Depressive disorder, not elsewhere classified Need for prophylactic vaccination and inoculation against influenza Screen for STD (sexually transmitted disease) Screening examination for venereal disease Lumbar radiculopathy Thoracic or lumbosacral neuritis or radiculitis, unspecified documented in this encounter Discontinued Medications Medication Sig Discontinue Reason Start Date End Da te ondansetron (ZOFRAN-ODT) 4 mg disintegrating tablet Take 1 Tab by mouth every 8 hours as needed for Nausea. 12/09/2009 01/08/2010 ondansetron (ZOFRAN-ODT) 4 mg disintegrating tablet Take 1 Tab by mouth every 8 hours as needed for Nausea. Reorder 11/28/2009 01/08/2010 documented as of this encounter Orders Immunization/Injection Count Last Ordered Date First Ordered Date FLU VACCINE =>3YO SPLIT PRES ERVATIVE FREE IM 1 01/08/2010 documented in this encounter Care Teams Process Coordinator Relationship Specialty Start Date End Date Nataly Vilchis MD PhD [address] [place] [phone] PCP - General 08/20/08 11/21/18 documented as of this encounter
--- OUTSIDE RECORDS SUMMARY | 2023-10-19 15:36 | XMS_ITS | Encounter Summary ---
Author Organization [facility] Address [address] [place] [address] Care Team Providers Care Boat Carpenter Mechanic Name Role Phone Miri Vilchis MD PhD Primary Care Provider Reason for Visit * Reason Onset Date Comments Medications Refill 08/08/2010 Encounter Details Date Type Department Care Team (Late st Contact Info) Description 08/08/2010 Refill [facility] Adult Primary Care - [address] [address] Miri Vilchis MD PhD [address] [place] [phone] Medications Refill Social History Tobacco Use [...] office visit before next refill. 30 Tab 0 08/08/2010 08/13/2010 documented in this encounter Miscellaneous Notes * Telephone Encounter - Hortencia Sun - 08/08/2010 1336 EDT Rec'd fax from pharmacy for refill for Sertraline 50mg tab documented in this encounter Plan of Treatment Upcoming Encounters Date Type Department Care Team (Late st Contact Info) Description 10/22/2023 13:25 EDT Hospital Encounter [facility] OR [address] [place] [address] [phone] Walker Pride MD [address] [place] [phone] 10/22/2023 13:25 EDT - 10/22/2023 17:00 EDT Surgery [facility] OR [address] [place] [address] [phone] Walker Pride MD [address] [place] [phone] Left L34 decompression, redo left L45 decompression [71960 (CPT??)] 11/22/2023 10:00 EDT Post-op Visit [facility] Neurosurgery - [address] [phone] Madiha Hurtado NP [address] [place] [address] [address] [place] [phone] Scheduled Procedures Name Priority Associated Diagnoses Date/Ti [...] Take 1 Tab by mouth daily. Reorder 05/28/2010 08/08/2010 documented as of this encounter Care Teams Boat Carpenter Mechanic Relationship Specialty Start Date End Date Miri Vilchis MD PhD [address] [place] [phone] PCP - General 08/20/08 11/21/18 documented as of this encounter
--- OUTSIDE RECORDS SUMMARY | 2023-10-19 15:36 | XMS_ITS | Encounter Summary ---
Author Organization [facility] Address [address] [place] [address] Care Team Providers Care Deburrer Name Role Phone Miri Vilchis MD PhD Primary Care Provider Reason for Referral * Consult (Routine/Next Available) - Closed Specialty Diagnoses / Procedures Referred By Liat mehta Referred To Contact Gynecology Diagnoses Contraception management Destinee Montague PA-C [address] [place] [phone] Referral ID Status Reason Start Date Expiration Date V isits Requested Visits Authorized [id number] Closed Specialty Services Required 09/08/2012 1 1 Question Answer Reason for Request: implenon consult Reason for Visit * Reason Comments Gynecologic Exam Rash left side of face (r ing worm) was around animals Encounter Details Date Type Department Care Team (Late st Contact Info) Description 09/08/2012 13:15 EDT Office Visit [facility] Adult Primary Care - [address] [address] Destinee Montague PA-C [address] [place] [phone] Pap smear for cervical cancer screening (Primary Dx); Routine general medical examination at a health care facility; Tinea corporis; Depression; Contraception management; OCD (obsessive compulsive disorder) Discharge Disposition: Auto Discharge Social History Tobacco [...] Sign Reading Time Taken Comments Blood Pressure 80/60 09/08/2012 1305 EDT Pulse 68 09/08/2012 1305 EDT Temperature 37.2 ??C (99 ??F) 09/08/2012 1305 EDT Respiratory Rate 12 09/08/2012 1305 EDT Oxygen Saturation - - Inhaled Oxygen Concentration - - Weight 59 kg (130 lb) 09/08/2012 1305 EDT Height 165.1 cm (5' 5) 09/08/2012 1305 EDT Body Mass Index 21.63 09/08/2012 1305 EDT documented in this encounter Ordered Prescriptions Prescription Sig Dispensed Refills Start Date End Da te citalopram (CELEXA) 20 mg tablet 1/2 tab po daily x 1week, then 1 tab po daily 30 Tab 3 09/08/2012 04/30/2015 ketoconazole (NIZORAL) 2 % cream Apply to affected area bid for up to 2 weeks 15 g 0 09/08/2012 04/30/2015 documented in this encounter Discharge Disposition Disposition Code Departure Means Destination Auto Discharge documented in this encounter Progress Notes * Destinee Montague PA - 09/08/2012 1318 EDT Images from the original note were not included. Subjective: Patient ID: Teri Toribio is an 22 y.o. female. Chief Complaint Patient presents with ??? Gynecologic Exam ??? Rash left side of face (ring worm) was around animals HPI Comments: Pt is here for a pap exam today. She has been feeling well. She has had a pap in the past. She visited the [email or web address] in the past week. Pt went to see the cats and was playing with them. Pt thinks that she has ringworm. She has a round rash that has been present since she was exposed to the cats. Pt has been feeling better in regards to her constipation. Pt has normal bowels now. She found thather bowels were related to her stress level and what she was eating. Pt has felt that since then she has a tendency to follow OCD behaviors. Pt feels that she has to recheck things prior to going to bed. She takes 2 hrs to get to bed due to her habits. She has been struggling with this for years. She feels that her mood is also affected. She has been having 2 weeks where she feels down and depressed, then times when she feels OK. She has been having a compulsion to perform tasks prior to leaving the house. She recognizes that they are not needed but feels that she must complete the rituals. She finds that she cannot focus on tasks. She does find that she feelsbetter with running each day. Pt has spoken to a counselor in the distant past. Pt has lows that last x 2 weeks. Pt has not been to counseling recently. She did not have success with it in the past. She does feel depressed at times. She denies any SI. Pt felt tired with taking the sertraline. Pt d/c it . She has a grandmother with a twin sister (m.great aunt) who had anxiety, depression and OCD and washing her hands a lot. She finds that she has ahard time leaving the house. Gynecologic Exam Associated symptoms include a rash. Rash Patient Active Problem List Diagnoses ??? Contraceptive management ??? Constipation by delayed colonic transit No past medical history on file. Current Outpatient Prescriptions on File Prior to Visit Medication Sig Dispense Refill ??? sertraline (ZOLOFT) 50 mg tablet Take 1 Tab by mouth daily. Needs office visit before next refill. 30 Tab 1 ??? norgestimate-ethinyl estradiol (MONONESSA, 28,) 0.25-35 mg-mcg per tablet Take 1 Tab by mouth daily. 1 Each 11 ??? ondansetron (ZOFRAN-ODT) 4 mg disintegrating tablet Take 1 Tab by mouth every 8 hours as neededfor Nausea. 15 Tab 0 ??? omeprazole (PRILOSEC) 20 mg capsule Take 1 Cap by mouth daily. 30 Cap 3 ??? PEG 3350-Electrolytes (MIRALAX) 17 gram packet Take 17 g by mouth 3 times daily. No Known Allergies Social History Substance Use Topics ??? Smoking status: Never Smoker ??? Smokeless tobacco: Not on file ??? Alcohol Use: No Review of Systems Constitutional: Negative. HENT: Negative. Eyes: Negative. Respiratory: Negative. Cardiovascular: Negative. Gastrointestinal: Negative. Genitourinary: Negative. Musculoskeletal: Negative. Skin: Positive for rash. Neurological: Negative. Psychiatric/Behavioral: Positive for depression. Negative for suicidal ideas, hallucinations and substance abuse. The patient is nervous/anxious. OCD behaviors - See HPI Objective: BP 80/60 Pulse 68 Temp(Src) 37.2 ??C (99 ??F) (Oral) Resp 12 Ht 165.1 cm (65) Wt 58.968 kg (130 lb) BMI 21.63 kg/m2 LMP 08/13/2012 Physical Exam Constitutional: She is oriented to person, place, and time. She appears well- developed and well-nourished. No distress. HENT: Head: Normocephalic and atraumatic. Right Ear: Tympanic membrane, external ear and ear canal normal. Left Ear: Tympanic membrane, external ear and ear canal normal. Nose: Nose normal. Mouth/Throat: Uvula is midline, oropharynx is clear and moist and mucous membranes are normal. No oropharyngeal exudate, posterior oropharyngeal edema or posterior oropharyngeal erythema. Eyes: Conjunctivae normal and EOM are normal. Pupils are equal, round, and reactive to light. Righteye exhibits no discharge. Left eye exhibits no discharge. No scleral icterus. Neck: Normal range of motion. Neck supple. No thyromegaly present. Cardiovascular: Normal rate and regular rhythm. No murmur heard. Pulmonary/Chest: Effort normal and breath sounds normal. No respiratory distress. She has no decreased breath sounds. She has no wheezes. She has no rhonchi. She has no rales. Abdominal: Soft. Bowel sounds are normal. She exhibits no distension and no mass. There is no hepatosplenomegaly. There is no tenderness. There is no rebound, no guarding, no tenderness at McBurney'spoint and negative Olivas's sign. No hernia. Genitourinary: Rectum normal, vagina normal and uterus normal. No breast swelling, tenderness, discharge or bleeding. Pelvic exam was performed with patient supine. There is no rash, tenderness, lesion or injury on the right labia. There is no rash, tenderness, lesion or injury on the left labia. Uterus is not deviated, not enlarged, not fixed and not tender. Cervix exhibits no motion tenderness,no discharge and no friability. Right adnexum displays no mass, no tenderness and no fullness. Leftadnexum displays no mass, no tenderness and no fullness. No erythema, tenderness or bleeding aroundthe vagina. No foreign body around the vagina. No signs of injury around the vagina. No vaginal discharge found. Retroverted uterus Musculoskeletal: Normal range of motion. Lymphadenopathy: She has no cervical adenopathy. Neurological: She is alert and oriented to person, place, and time. She exhibits normal muscle tone. Coordination normal. Skin: Skin is warm and dry. She is not diaphoretic. Psychiatric: Her speech is normal and behavior is normal. Judgment and thought content normal. Cognition and memory are normal. She exhibits a depressed mood. Assessment: ??? Pap smear for cervical cancer screening Yes ??? Routine general medical examination at a health care facility ??? Tinea corporis ??? Depression ??? Contraception management ??? OCD (obsessive compulsive disorder) Plan: Teri was seen today for gynecologic exam and rash. Diagnoses and associated orders for this visit: Pap smear for cervical cancer screening - Pap Test - Order Only Routine general medical examination at a health care facility Pap exam done Pt declines GC/chlamydia testing refer to TRIGONOMETRY TEACHER - pt wants to discuss implanon OCD refer to counseling Will start citalopram 10mg x 1-2 weeks, then 20mg daily reeval in 4-6weeks Discussed tx recommendations Tinea corporis Will tx nizoral cream for up to 2 weeks Avoid scratching reviewed safety recommendations And healthy recommendations documented in this encounter Plan of Treatment Upcoming Encounters Date Type Department Care Team (Late st Contact Info) Description 10/22/2023 13:25 EDT Hospital Encounter [facility] OR [address] [place] [address] [phone] Walker Pride MD [address] [place] [address], [address] [place] [phone] 10/22/2023 13:25 EDT - 10/22/2023 17:[address] [facility] OR [address] [place], [place] [phone] Walker Pride MD [address] [place] [address], [facility] [address] [place] [phone] Left L34 decompression, redo left L45 decompression [26613 (CPT??)] 11/22/2023 10:00 EDT Post-op Visit [facility] Neurosurgery - [address] [phone] aMdiha Hurtado NP [address] [facility] [address] [place] [phone] Scheduled Procedures Name Priority Associated Diagnoses Date/Ti mo LAMINECTOMY, SPINE, LUMBAR, 1 LEVEL, WITH FORAMINOTOMY OR FACETECTOMY Lumbar radiculopathy 10/22/2023 13:25 EDT LAMINECTOMY, SPINE, WITH FACETECTOMY AND FORAMINOTOMY, ADDITIONAL LEVEL FOLLOWING INITIAL LEVEL Lumbar radiculopathy 10/22/2023 13:25 EDT Scheduled Referrals Name Type Priority Associated Diagnoses Order Schedule AMB CONSULT GYNECOLOGY Outpatient Referral Routine Contraception management Ordered: 09/08/2012 documented as of this encounter Visit Diagnoses Diagnosis Pap smear for cervical cancer screening- Primary Screening for malignant neoplasm of the cervix Routine general medical examination at a health care facility Tinea corporis Dermatophytosis of the body Depression Depressive disorder, not elsewhere classified Contraception management Unspecified contraceptive management OCD (obsessive compulsive disorder) Obsessive-compulsive disorders Lumbar radiculopathy Thoracic or lumbosacral neuritis or radiculitis, unspecified documented in this encounter Discontinued Medications Medication Sig Discontinue Reason Start Date End Da te sertraline (ZOLOFT) 50 mg tabletIndications:Anxiety ,Depression Take 1 Tab by mouth daily. Needs office visit before next refill. Patient Stopped Taking 08/13/2010 09/08/2012 PEG 3350-Electrolytes (MIRALAX) 17 gram packetIndications:Constip ation by delayed colonic transit Take 17 g by mouth 3 times daily. Patient Stopped Taking 09/08/2012 ondansetron (ZOFRAN-ODT) 4 mg disintegrating tabletIndications:Nausea Take 1 Tab by mouth every 8 hours as needed for Nausea. Patient Stopped Taking 02/28/2010 09/08/2012 omeprazole (PRILOSEC) 20 mg capsuleIndications:Nausea Take 1 Cap by mouth daily. Patient Stopped Taking 01/08/2010 09/08/2012 norgestimate-ethinyl estradiol (MONONESSA, 28,) 0.25-35 mg-mcg per tablet Take 1 Tab by mouth daily. Patient Stopped Taking 04/22/2010 09/08/2012 documented as of this encounter Care Teams Deburrer Relationship Specialty Start Date End Date Miri Vilchis MD PhD [address] [place] [phone] PCP - General 08/20/08 11/21/18 documented as of this encounter
--- OUTSIDE RECORDS SUMMARY | 2023-10-19 15:37 | XMS_ITS | Encounter Summary ---
Author Organization [facility] Address [address] [place] [address] Care Team Providers Care Vacuum Closing Machine Operator Name Role Phone Miri Vilchis MD PhD Primary Care Provider Reason for Visit * Reason Comments Blood Sugar Problem Constipation Encounter Details Date Type Department Care Team (Late st Contact Info) Description 08/06/2009 14:00 EDT Nutrition [facility] Nutrition Services - [facility] [address] [place], [place] [phone] Luba Figueroa RD Social History Tobacco Use [...] - Inhaled Oxygen Concentration - - Weight 52.2 kg (115 lb) 08/06/2009 1411 EDT Height 162.6 cm (5' 4) 08/06/2009 1411 EDT Body Mass Index 19.74 08/06/2009 1411 EDT documented in this encounter Progress Notes * Luba Figueroa - 08/06/2009 1448 EDT Nutrition Services Medical Nutrition Therapy Initial Nutrition Assessment SUBJECTIVE: Patient is 19 y.o. female here for medical nutrition therapy for hypoglycemia, bowel dismotility - need for high fiber diet ed. Nutrition/diet history: Lives in [place] as a college student. Will spend summer at home with family. Family/other support system: roommate/ famil Menu planning/shopping:patient Who does the cooking:patient Dining out frequency: not often Current Exercise: planned exercise most days of week Reasons for limited exercise: runs 18-20 miles/wk, works out 3x/wk Patient was accompanied by: self OBJECTIVE: Height: 162.6 cm (5' 4) Weight : 52.164 kg (115 lb) Body mass index is 19.74 kg/(m^2). Labs: 25OH Vitamin D Tot Date Value Range Status 07/01/09 11:46 AM 34.0 - (ng/ml) Final Reference Range: <10 ng/ml: Deficient - (ng/ml) 10-30 ng/ml: Insufficient - (ng/ml) 30-100 ng/ml: Sufficient - (ng/ml) >100 ng/ml: Toxic - (ng/ml) Pertinent Medical History: No past medical history on file. ASSESSMENT: Assessment of Food/Nutrient Intake : Eats breakfast and then has a snack. Eats dinner and then has one or two snacks afterwards. Pt became sick at the beginning of the year when her bowels stopped working and was very nauseas all the time. Has lost ~10lbs. Pt is eating small frequent meals with lots of fruits and vegetables. Pt eats whole grains. Provided pt with Ed on hypoglycemia and a high fiber diet. PLAN: Nutrition Recommendations and Goals: 25-30 grams fiber/day, label reading for serving size, fiber and ingredients, 8+ cups water, fiber and protein each meal and snack, small frequent meals through out the day (aprox q 3 hours). Exercise/Activity Recommendations: continue current exercise Educational materials provided: Individualized Nutrition Recommendations Fiber, Protein ,My Pyramid, Hypoglycemia hand out Method: Handout and Verbal Taught to: Patient Barriers: None Outcomes: verbalized understanding Luba Mendez RD documented in this encounter Plan of Treatment Upcoming Encounters Date Type Department Care Team (Late st Contact Info) Description 10/22/2023 13:[address] [facility] OR [address] [place] [address] [phone] Walker Pride MD [address] [place] [address] 5 [place] [phone] 10/22/2023 13:25 EDT - 10/22/2023 17:[address] [facility] OR [address] [place] [address] [phone] Walker Pride MD [address] [place] [address], [facility] [address] [place] [phone] Left L34 decompression, redo left L45 decompression [52994 (CPT??)] 11/22/2023 10:00 EDT Post-op Visit [facility] Neurosurgery - [address] [phone] Madiha Hurtado NP [address] [place] [address], [address] [phone] Scheduled Procedures Name Priority Associated Diagnoses Date/Ti me LAMINECTOMY, SPINE, LUMBAR, 1 LEVEL, WITH FORAMINOTOMY OR FACETECTOMY Lumbar radiculopathy 10/22/2023 13:25 EDT LAMINECTOMY, SPINE, WITH FACETECTOMY AND FORAMINOTOMY, ADDITIONAL LEVEL FOLLOWING INITIAL LEVEL Lumbar radiculopathy 10/22/2023 13:25 EDT documented as of this encounter Visit Diagnoses Not on filedocumented in this encounter Care Teams Vacuum Closing Machine Operator Relationship Specialty Start Date End Date Miri Vilchis MD PhD [address] [place] [phone] PCP - General 08/20/08 11/21/18 documented as of this encounter
--- OUTSIDE RECORDS SUMMARY | 2023-10-19 15:37 | XMS_ITS | Encounter Summary ---
Author Organization [facility] Address [address] [place] [address] Care Team Providers Care Plane Captain Name Role Phone Miri Vilchis MD PhD Primary Care Provider Encounter Details Date Type Department Care Team (Latest Contact Info) Description 07/24/2009 10:33 EDT - 07/24/2009 23:59 EDT Hospital Encounter [facility] [address] [place], [place] [phone] Destinee Montague PA-C [address] [place] [phone] Discharge Disposition: Home or Self Care Social [...] Refills Start Date End Date norgestimate-ethinyl estradiol (ORTHO TRI-CYCLEN, 28,) .18/.215/.25-35 mg-mcg (28) tablet Take 1 Tab by mouth daily. 07/25/2009 PEG 3350-Electrolytes (MIRALAX) 17 gram packetIndications:Constip ation by delayed colonic transit Take 17 g by mouth 3 times daily. 09/08/2012 trazodone (DESYREL) 50 mg tablet Take by mouth at bedtime. 1-2 tabs po qHS prn 30 Tab 1 07/17/2009 07/31/2009 documented as of this encounter Discharge Disposition Disposition Code Departure Means Destination Home or Self [facility] documented in this encounter Plan of Treatment Upcoming Encounters Date Type Department Care Team (Late st Contact Info) Description 10/22/2023 13:25 EDT Hospital Encounter [facility] OR [address] [place] [address] [phone] Walker Pride MD [address] [place] [phone] 10/22/2023 13:25 EDT - 10/22/2023 17:00 EDT Surgery [facility] OR [address] [place] [address] [phone] Walker Pride MD [address] [place] [phone] Left L34 decompression, redo left L45 decompression [84238 (CPT??)] 11/22/2023 10:00 EDT Post-op Visit [facility] Neurosurgery - [address] [phone] Madiha Hurtado NP [address] [place] [phone] Scheduled Procedures Name Priority Associated Diagnoses Date/Ti az LAMINECTOMY, SPINE, LUMBAR, 1 LEVEL, WITH FORAMINOTOMY OR FACETECTOMY Lumbar radiculopathy 10/22/2023 13:25 EDT LAMINECTOMY, SPINE, WITH FACETECTOMY AND FORAMINOTOMY, ADDITIONAL LEVEL FOLLOWING INITIAL LEVEL Lumbar radiculopathy 10/22/2023 13:25 EDT documented as of this encounter Visit Diagnoses Not on filedocumented in this encounter Care Teams Plane Captain Relationship Specialty Start Date End Date Miri Vilchis MD PhD [address] [place] [phone] PCP - General 08/20/08 11/21/18 documented as of this encounter
--- OUTSIDE RECORDS SUMMARY | 2023-10-19 15:37 | XMS_ITS | Encounter Summary ---
Author Organization [facility] Address [address] [place] [address] Care Team Providers Care Buffing Wheel Former Machine Name Role Phone Miri Vilchis MD PhD Primary Care Provider Encounter Details Date Type Department Care Team (Late st Contact Info) Description 08/02/2007 Before PRISM Converted Visit (Maple) [facility] - Maple conversion [address], [place] [phone] Destinee Holman, ACQUISITION COST ESTIMATOR [address] [place] [phone] Social History Tobacco Use Types Packs/Day Years Used Date Smoking Tobacco: Never Assessed Sex and Gender Information Value Date Recorded Sex Assigned at Female 10/08/2022 13:26 EDT Gender Identity Female 07/29/2021 16:35 EDT Sexual Orientation Straight 10/08/2022 13 :26 EDT documented as of this encounter Progress Notes * Destinee Holman, BENCH MOVER - 12/14/2008 1003 EDT Primary Care Internal Medicine [address] [place] [address] [phone] PROGRESS/FOLLOWUP NOTE - 08/15/2007 PROBLEM: Vaginitis follow-up. PROBLEM: Lymphadenopathy. SUBJECTIVE Please see my prior note. Teri presented today with her mother. Teri states that her yeast and vaginitis symptoms have gotten better. They responded to her course of Diflucan. She no longer notices vaginal itch, burn, or discharge. She is concerned, however, about ongoing lymphadenopathy in the inguinal area. She continues to feel a larger bump in the right mid labial area near the crease of the groin. She states that it is nontender unless her underwear is rubbing over that area. She notes that she never noticed the spot before until a few weeks ago. She has tried putting warm compresses on the area with no change.As advised at her last visit, she has avoided shaving in the pubic area and she has been gently scru bbing the area in the shower with some antibacterial soap. Teri is feeling well. She denies any recent cold symptoms. No significant fatigue. No changes in weight. She is pretty busy trying to wrap up the end of her school year. She is graduating high school this year. OBJECTIVE Generally, she appears well. Visual inspection of the external genitalia area is normal. The areas of folliculitis look like they have cleared up. There are small bilateral inguinal lymph nodes that are nontender. They are soft. They are around ?? centimeter in size and mobile. They seem symmetric bilaterally. Palpation further in to the right labial area reveals more of a firm pea-sized nodule that is slightly tender to deep palpation. Closer inspection reveals that the skin is mildly erythematous in thisarea. ASSESSMENT Yeast vaginitis resolved. Mild superficial folliculitis resolved. Firmer cystic type nodule felt in the right labial region. Benign normal feeling lymph nodes in the inguinal region. PLAN A. I discussed the diagnosis with Teri and her mother. I discussed treatment options for what I believe is a cystic nodule. A2. The patient will have follow up in two to three weeks if her symptoms are not better. If the cystic structure remains, we discussed ultrasound of the area and potential referral to dermatology tohave it removed. B. I suggested ongoing warm compresses to the area, perhaps soaking in a warm bathtub. B2. Trial of Keflex 500 mg four times a day for seven days. Signed by Destinee Holman APRN 08/22/2007 08:56 Destinee Holman APRN - Lizeth Holman APRN - NIRAV Job ID: [id number] Doc ID: [id number] cc: * Destinee Holman, BENCH MOVER - 12/14/2008 0528 EDT Primary Care Internal Medicine [address] [place] [phone] PROGRESS/FOLLOWUP NOTE - 08/02/2007 TEMPORARY PROBLEM: Vaginitis. TEMPORARY PROBLEM: Lymphadenopathy. SUBJECTIVE Teri notes that she has had an odor to her urine, and she has also noticed some vaginal itch, burnand discharge. She is on oral contraceptive pills and had her menstrual cycle as expected two weeksago. No new sexual partners. She had a full Pap and pelvic exam completed one month ago at our office. She had a normal Pap smear with the exception of a shift in jovon consistent with candidiasis. She had negative HPV testing and negative gonorrhea and chlamydia testing. Teri states that she was notified that she might have a yeast infection when she got the results of her Pap smear, but she was unclear how to treat this. She also noticed a lump in the vaginal area and wanted to have this evaluated. States that for approximately three weeks, she has felt a lump in the vaginal area. It is nontender. She does not believe it is changing in size. OBJECTIVE Generally she appears well. She is appropriately dressed and groomed. A UA was obtained, which showed trace leukocytes and trace protein but was otherwise normal. Her Vital signs are stable and she was afebrile. Abdomen was soft, flat and nontender.There was palpable bilateral inguinal lymphadenopathy. Most of the lymph nodes were small, being approximately ?? cm in size and nontender. The lump that Teri was feeling is consistent with a larger inguinal lymph node located in the right side of her groin, approximately fdc down. It is about the size of my fingertip, measuring just over a cmin diameter. It is soft, slightly mobile, nontender. She has shaved all of the pubic hair. There looks to be a mild area of folliculitis over the upper monspubis. Otherwise the external genitalia is normal. Internal vaginal exam is positive for some erythema through the vaginal vault. Thick, white discharge is present in moderate amounts. A sample of the discharge was collected and a FELY slide was prepared, which was positive for yeast buds and hyphae. Negative whiff test. ASSESSMENT 1. Yeast vaginitis. 2. Mild folliculitis and bilateral inguinal lymphadenopathy. I suspect that the lymphadenopathy is likely secondary to the folliculitis, potentially related to the yeast infection as well. PLAN 1. Education provided on the diagnosis. 2. Diflucan 150 mg one p.o. today, repeat the dose times one in three days. Dispensed two. 3. Discontinue shaving around the pubic area for the next two to three weeks. 4. Scrub the area of mild folliculitis with an antibacterial soap daily for the next three to five days. 5. Continue to monitor the lymphadenopathy. 6. I am hopeful that once the folliculitis has cleared and she quits shaving the area, that the lymphadenopathy will resolve on its own over the next two to three weeks. If it does not, she will makea return office visit. Signed by Destinee oHlman APRN 08/10/2007 09:41 Destinee Holman APRN - Lizeth Holman APRN Pretty BELLA Job ID: [id number] Doc ID: [id number] cc: documented in this encounter Plan of Treatment Upcoming Encounters Date Type Department Care Team (Late st Contact Info) Description 10/22/2023 13:25 EDT Hospital Encounter [facility] OR [address] [place] [phone] Walker Pride MD [address] [place] [address], [address] [place] [phone] 10/22/2023 13:25 EDT - 10/22/2023 17:00 EDT Surgery [facility] OR [address] [place], [place] [address] Walker Pride MD [address] [facility], [facility], [address] [place] [phone] Left L34 decompression, redo left L45 decompression [13828 (CPT??)] 11/22/2023 10:00 EDT Post-op Visit [facility] Neurosurgery - [facility] [address], [place] [phone] Madiha Hurtado NP [address] [facility], [facility], [address] [place] [phone] Scheduled Procedures Name Priority Associated Diagnoses Date/Ti me LAMINECTOMY, SPINE, LUMBAR, 1 LEVEL, WITH FORAMINOTOMY OR FACETECTOMY Lumbar radiculopathy 10/22/2023 13:25 EDT LAMINECTOMY, SPINE, WITH FACETECTOMY AND FORAMINOTOMY, ADDITIONAL LEVEL FOLLOWING INITIAL LEVEL Lumbar radiculopathy 10/22/2023 13:25 EDT documented as of this encounter Visit Diagnoses Not on filedocumented in this encounter Care Teams Buffing Wheel Former Machine Relationship Specialty Start Date End Date Miri Vilchis MD PhD [address] [place] [phone] PCP - General 08/20/08 11/21/18 documented as of this encounter
--- OUTSIDE RECORDS SUMMARY | 2023-10-19 15:37 | XMS_ITS | Encounter Summary ---
Author Organization [facility] Address [address] [place] [address] Care Team Providers Care Director Sales And Marketing Name Role Phone Miri Vilchis MD PhD Primary Care Provider Encounter Details Date Type Department Care Team (Late st Contact Info) Description 10/19/2007 Before PRISM Converted Visit (Maple) [facility] - Maple conversion [address], [place] [address] [phone] Bisi Deras PA-C 111 [facility], [address] [place] [phone] Social History Tobacco Use Types Packs/Day Years Used Date Smoking Tobacco: Never Assessed Sex and Gender Information Value Date Recorded Sex Assigned at Female 10/08/2022 13:26 EDT Gender Identity Female 07/29/2021 16:35 EDT Sexual Orientation Straight 10/08/2022 13 :26 EDT documented as of this encounter Consult Notes * Bisi Deras PA - 12/10/2008 1415 EDT DIVISION OF DERMATOLOGY CONSULTATION - 10/19/2007 AISHWARYA Williamson is an 17-year-old who presents today for consultation at the request of Dr. Vilchis for evaluation of red spots on the chin. Shefirst noticed a small cluster of the red spots on the right chin a week or so ago that spontaneously resolved. These do not itch or hurt. She could not recall any specific trauma to the area. There were a few days in between where she does not think thatshe had any, and then a few days ago noticed some along the left chin and jawline. These do not itch or hurt either. She cannot recall any specific trauma to the area and does not think that she leaned on the area,scratched at the area or manipulated theskin in any way. She does play softball and wears a helmet but this does not have any chin strap. She is on OCP but has not had any problems with this. She has not noticed any red spots anywhere else on her body. She has not had any problems with bleeding. Her energy is normal. She has never had anything like these before. She has not used any treatments. MEDICATIONS OCP only. MEDICATION ALLERGIES None. For complete past medical history and current review of systems please see the new patient form. SOCIAL HISTORY She is a student, single, nonsmoker and drinks no alcohol. FAMILY HISTORY Non-melanoma skin cancers and eczema. OBJECTIVE In no apparent distress. Very fit, healthy appearing young woman seated comfortably. She is here today with her mom.Skin exam: In a linear band-like distribution from the mid chin along the left jawline there are multiple 2 to 3 mm non-blanching petechiae. The right chin and right jawline are completely clear. ASSESSMENT ?Trauma with resultant petechiae vs benign essential telangiectasia (much less likely). PLAN 1.was seen and examined by Dr. Stone. Given the history of the other spots spontaneously resolving,we feel that these will probably go away on their own as well without leaving any dyspigmentation orscar. It is possible that she did some type of trauma to this area that she cannot recall. At this point there is no need to change her OCP as she does not have any systemic-type symptoms with excessive bleeding or any sign of clotting. 2. She should watch these over the next few days and if these continue to resolve there is no need for any further workup. 3. She will give me a call in a week and let me know what is going on - if these persist or worsen in any way would like to see her back for reevaluation and possible biopsy. If she notices any on any other body parts she will call and let me know as well. She will also try to be aware of any trauma to that area. saw and examined the patient with the resident/fellow. I agree with the findings and plan of care documented in the resident's/fellow's note. Edited and Signed by Jewell Stone MD 10/21/2007 17:52 Reviewed by Bisi Deras PA-C 10/21/2007 09:23 Bisi Deras PA-C Jewell Stone MD - Bisi Deras PA-C - JATIN Job ID: [id number] Doc ID: [id number] cc: Miri Vilchis MD,PhD - jatin Job ID: [id number] Doc ID: [id number] cc: Miri Vilchis MD,PhD documented in this encounter Plan of Treatment Upcoming Encounters Date Type Department Care Team (Late st Contact Info) Description 10/22/2023 13:25 EDT Hospital Encounter [facility] OR [address] [place] [address] [phone] Walker Pride MD [address] [place] [phone] 10/22/2023 13:25 EDT - 10/22/2023 17:00 EDT Surgery [facility] OR [address] [place] [address] Walker Pride MD [address] [place] [phone] Left L34 decompression, redo left L45 decompression [[id number] (CPT??)] 11/22/2023 10:00 EDT Post-op Visit [facility] Neurosurgery - [facility] [address] [place] [address] Madiha Hurtado NP 111 [facility], [facility], [address] [place] [phone] Scheduled Procedures Name Priority Associated Diagnoses Date/Ti me LAMINECTOMY, SPINE, LUMBAR, 1 LEVEL, WITH FORAMINOTOMY OR FACETECTOMY Lumbar radiculopathy 10/22/2023 13:25 EDT LAMINECTOMY, SPINE, WITH FACETECTOMY AND FORAMINOTOMY, ADDITIONAL LEVEL FOLLOWING INITIAL LEVEL Lumbar radiculopathy 10/22/2023 13:25 EDT documented as of this encounter Visit Diagnoses Not on filedocumented in this encounter Care Teams Director Sales And Marketing Relationship Specialty Start Date End Date Miri Vilchis MD PhD [address] [place] [phone] PCP - General 08/20/08 11/21/18 documented as of this encounter
--- OUTSIDE RECORDS SUMMARY | 2023-10-19 15:37 | XMS_ITS | Encounter Summary ---
Author Organization [facility] Address [address] [place] [address] Care Team Providers Care Water Valve Repairer Name Role Phone Miri Vilchis MD PhD Primary Care Provider Reason for Referral * Consult (Routine) - Closed Specialty Diagnoses / Procedures [facility]erred To Contact Nutrition Diagnoses Hypoglycemia Celiac disease Destinee Montague PA-C [address] [place] [phone] [facility] Nutrition [address] [place] [address] Referral ID Status Reason Start Date Expiration Date V isits Requested Visits Authorized [id number] Closed Specialty Services Required 07/17/2009 1 1 Question Answer Reason for Request: hypoglycemia, celiac spure, severe constipation and needs higher fiber diet Reason for Visit * Reason Comments Results recent blood work Encounter Details Date Type Department Care Team (Late st Contact Info) Description 07/17/2009 10:00 EDT Office Visit [facility] Adult Primary Care - [address] [address] Destinee Montague PA-C [address] [place] [phone] Celiac disease; Menorrhagia; Fatigue; Hypoglycemia; Insomnia Social History Tobacco Use Types Packs/Day Years [...] Sign Reading Time Taken Comments Blood Pressure 80/58 07/17/2009 1004 EDT Pulse 56 07/17/2009 1004 EDT regular Temperature - - Respiratory Rate - - Oxygen Saturation - - Inhaled Oxygen Concentration - - Weight - - Height - - Body Mass Index - - documented in this encounter Ordered Prescriptions Prescription Sig Dispensed Refills Start Date End Da te trazodone (DESYREL) 50 mg tablet Take by mouth at bedtime. 1-2 tabs po qHS prn 30 Tab 1 07/17/2009 07/31/2009 documented in this encounter Progress Notes * Destinee Montague PA-C - 07/17/2009 1010 EDT Subjective: Patient ID: Teri Toribio is an 18 y.o. female. Chief Complaint: HPI Comments: Pt notes that she has periods of time that she feels foggy and tired. Pt has been getting up 10-11 times per night to urinate. Pt is going to P.T. For urinary symptoms. Pt is here with her mother. Pt needs to help her sleep. Pt has been struggling with manging all her symptoms. Pt's mother states that she does not eat enough protein and that she is the lowest weight she has ever been. Pt feels that she would like to see shipping receiving clerk to help with hypoglyemia, celiac and increased fiber. History reviewed. No pertinent past medical history. History reviewed. No pertinent family history. Current outpatient prescriptions Medication Sig Dispense Refill ??? norgestimate-ethinyl estradiol (ORTHO TRI-CYCLEN, 28,) .18/.215/.25-35 mg- mcg (28) tablet Take 1 Tab by mouth daily. ??? PEG 3350-Electrolytes (MIRALAX) 17 gram packet Take 17 g by mouth 3 times daily. No Known Allergies History Social History ??? Marital Status: Single Spouse Name: N/A Number of Children: N/A ??? Years of Education: N/A Occupational History ??? Not on file. Social History Main Topics ??? Tobacco Use: Never ??? Alcohol Use: No ??? Drug Use: No ??? Sexually Active: Yes Other Topics Concern ??? Not on file Social History Narrative ??? No narrative on file Review of Systems HENT: Positive for congestion and sore throat. Eyes: Negative. Respiratory: Positive for cough. Cardiovascular: Negative. Skin: Negative. Neurological: Negative for dizziness and tingling. Objective: Physical Exam Constitutional: She is oriented. She appears well-developed and well-nourished. She appears not diaphoretic. No distress. HENT: Head: Normocephalic and atraumatic. Right Ear: Tympanic membrane, external ear and ear canal normal. Left Ear: Tympanic membrane, external ear and ear canal normal. Nose: Nose normal. Right sinus exhibits no maxillary sinus tenderness and no frontal sinus tenderness. Left sinus exhibits no maxillary sinus tenderness and no frontal sinus tenderness. Mouth/Throat: Uvula is midline, oropharynx is clear and moist and mucous membranes are normal. No oropharyngeal exudate. Neck: Normal range of motion. Neck supple. Cardiovascular: Normal rate and regular rhythm. Pulmonary/Chest: Effort normal and breath sounds normal. No respiratory distress. She has no wheezes. She has no rales. Lymphadenopathy: She has no cervical adenopathy. Neurological: She is alert and oriented. Skin: Skin is warm and dry. She is not diaphoretic. Assessment: Menorrhagia Hypoglycemia Insomnia Urinary frequency-nocturia Plan: Menorrhagia - will order pelvic US, and refer to CLINICAL SUPPORT TECH based on US results Hypoglycemia - reviewed dietary recommendations, refer to shipping receiving clerk Insomnia - may try trazodone 50mg qHS - up to 100mg qHS. Pt did not find that ambien worked. She has seen urology and is currently in P.T. To help with urinary frequency Over 50% of this 25min visit was spent in direct counseling with pt.on above issues. Diagnostic recommendations, risks and benefits of treatment, treatment recommendations and importance of compliance reviewed with patient. Patient and family education provided. reeval in 1mo documented in this encounter Plan of Treatment Upcoming Encounters Date Type Department Care Team (Late st Contact Info) Description 10/22/2023 13:25 EDT [facility] [facility] [place] [address] [place] [phone] Walker Pride MD [address] [place] [phone] 10/22/2023 13:25 EDT - 10/22/2023 17:00 EDT [place] [facility] [place] [address] [place] [address] [phone] Walker Pride MD [address] [place] [phone] Left L34 decompression, redo left L45 decompression [72980 (CPT??)] 11/22/2023 10:00 EDT Post-op Visit [facility] Neurosurgery - [address] [phone] Madiha Hurtado NP [address] [place] [phone] Scheduled Procedures Name Priority Associated Diagnoses Date/Ti me LAMINECTOMY, SPINE, LUMBAR, 1 LEVEL, WITH FORAMINOTOMY OR FACETECTOMY Lumbar radiculopathy 10/22/2023 13:25 EDT LAMINECTOMY, SPINE, WITH FACETECTOMY AND FORAMINOTOMY, ADDITIONAL LEVEL FOLLOWING INITIAL LEVEL Lumbar radiculopathy 10/22/2023 13:25 EDT Scheduled Referrals Name Type Priority Associated Diagnoses Orde r Schedule AMB CONSULT NUTRITION Outpatient Referral Routine Hypoglycemia Celiac disease Ordered: 07/17/2009 documented as of this encounter Procedures Procedure Name Priority Date/Time Associated Diagnosis Comments RAD US PELVIS TRANSABDOMINAL AND TRANSVAGINAL 07/24/2009 11:29 EDT documented in this encounter Results * RAD US PELVIS TRANSABDOMINAL AND TRANSVAGINAL (07/24/2009 11:29 EDT) Anatomical Region Laterality Modality Other 07/24/2009 11:2 9 EDT 07/24/2009 14:00 EDT Narrative 07/24/2009 14:00 EDT US PELVIS AND TRANSVAGINAL ??July 24, 2009 11:29:00 AM Signs and Symptoms/Comments: ??menorrhagia, menes q 2 weeks, r/o endometrial abnormality. Comparisons: Pelvic ultrasound 04/07/2009. Technique: Grayscale and color Doppler ultrasonographic images of the pelvis TA transabdominal and transvaginal approach. Findings: The uterus is anteflexed and measures 6.6 x 2.9 x 5.2 cm. There is a normal homogeneous appearance of the myometrium. The endometrial stripe is normal with a double thickness of 1 cm. There is no free fluid present within the uterine cavity. The right and left ovary are normal containing simple follicles measuring 2.5 x 1.3 x 2.2 and 2 x 1.3 x 1.1 cm, respectively. Both arterial and venous flow was documented within both ovaries. A nabothian cyst is present in the cervix. There is a trace amount of free fluid within the cul-de-sac. Impression: 1. Normal appearance of the uterus and ovaries. 2. Trace amount of free fluid within the cul-de-sac. 3. Nabothian cysts within the cervix. I have personally reviewed the images and the above interpretation and agree with the findings. Procedure Note Walker Damon MD / Walker Damon MD / Walker Damon MD - 07/24/2009 US PELVIS AND TRANSVAGINAL July 24, 2009 11:29:00 AM Signs and Symptoms/Comments: menorrhagia, menes q 2 weeks, r/o endometrial abnormality. Comparisons: Pelvic ultrasound 04/07/2009. Technique: Grayscale and color Doppler ultrasonographic images of the pelvis TA transabdominal and transvaginal approach. Findings: The uterus is anteflexed and measures 6.6 x 2.9 x 5.2 cm. There is a normal homogeneous appearance of the myometrium. The endometrial stripe is normal with a double thickness of 1 cm. There is no free fluid present within the uterine cavity. The right and left ovary are normal containing simple follicles measuring 2.5 x 1.3 x 2.2 and 2 x 1.3 x 1.1 cm, respectively. Both arterial and venous flow was documented within both ovaries. A nabothian cyst is present in the cervix. There is a trace amount of free fluid within the cul-de-sac. Impression: 1. Normal appearance of the uterus and ovaries. 2. Trace amount of free fluid within the cul-de-sac. 3. Nabothian cysts within the cervix. I have personally reviewed the images and the above interpretation and agree with the findings. Destinee Montague PA-C [facility] US ORDERABLE S documented in this encounter Visit Diagnoses Diagnosis Celiac disease Menorrhagia Excessive or frequent menstruation Fatigue Other malaise and fatigue Hypoglycemia Hypoglycemia, unspecified Insomnia Insomnia, unspecified Lumbar radiculopathy Thoracic or lumbosacral neuritis or radiculitis, unspecified documented in this encounter Care Teams Water Valve Repairer Relationship Specialty Start Date End Date Miri Vilchis MD PhD [address] [place] [phone] PCP - General 08/20/08 11/21/18 documented as of this encounter
--- OUTSIDE RECORDS SUMMARY | 2023-10-19 15:37 | XMS_ITS | Encounter Summary ---
Author Organization [facility] Address [address] [place] [address] Care Team Providers Care Legal Archivist Name Role Phone Miri iVlchis MD PhD Primary Care Provider Reason for Visit * Reason Onset Date Comments Urinary Incontinence 08/20/2009 Encounter Details Date Type Department Care Team (Late st Contact Info) Description 08/20/2009 Telephone [facility] Adult Primary Care - [address] [address] Miri Vilchis MD PhD [address] [place] [phone] Urinary Incontinence Social History Tobacco Use Types Packs/Day Years [...] Dispensed Refills Start Date End Da te oxybutynin (DITROPAN) 5 mg tablet Take 1 Tab by mouth 2 times daily. 30 Tab 2 08/20/2009 09/11/2009 documented in this encounter Miscellaneous Notes * Telephone Encounter - Patt Willis - 08/21/2009 1427 EDT PATIENT AWARE, APPT SCHEDULED * Telephone Encounter - Miri Vilchis MD PhD - 08/20/2009 1640 EDT Ok to try ditropan, I gave her 5 mg bid, 30 tabs and one refill, as a trial. Escribed. She should have follow up with me regarding how she is doing. * Telephone Encounter - Patt Willis - 08/20/2009 1050 EDT KATHERYN TAVARES THERAPIST WHO SPECIALIZES IN INCONTINENCE. * Telephone Encounter - Miri Vilchis MD PhD - 08/20/2009 0959 EDT Who called? Who is Tammy? * Telephone Encounter - Patt Willis - 08/20/2009 0903 EDT ATMMY HAS BEEN TREATING SARAH FOR URINARY FREQUECY, SARAH DOING VERY WELL DURING THE DAY BUT STILL GETTING UO 8 TIMES IN THE NIGHT, QUESTION POSSIBLE TRIAL OF DITROPAN OR SIMILAR MEDICATION? documented in this encounter Plan of Treatment Upcoming Encounters Date Type Department Care Team (Late st Contact Info) Description 10/22/2023 13:25 EDT Hospital Encounter [facility] OR [address] [place], [place] [phone] Walker Pride MD [address] [facility], [facility], [address] [place] [phone] 10/22/2023 13:25 EDT - 10/22/2023 17:00 EDT Surgery [facility] OR [address], [place] [phone] Walker Pride MD [address] [place] [address], [facility], [address] [place] [phone] Left L34 decompression, redo left L45 decompression [68811 (CPT??)] 11/22/2023 10:00 EDT Post-op Visit [facility] Neurosurgery - [address] [phone] Madiha Hurtado NP [address] [place] [address], [facility], [address] [place] [phone] Scheduled Procedures Name Priority Associated Diagnoses Date/Ti me LAMINECTOMY, SPINE, LUMBAR, 1 LEVEL, WITH FORAMINOTOMY OR FACETECTOMY Lumbar radiculopathy 10/22/2023 13:25 EDT LAMINECTOMY, SPINE, WITH FACETECTOMY AND FORAMINOTOMY, ADDITIONAL LEVEL FOLLOWING INITIAL LEVEL Lumbar radiculopathy 10/22/2023 13:25 EDT documented as of this encounter Visit Diagnoses Not on filedocumented in this encounter Care Teams Legal Archivist Relationship Specialty Start Date End Date Miri Vilchis MD PhD [address] [place] [phone] PCP - General 08/20/08 11/21/18 documented as of this encounter
--- OUTSIDE RECORDS SUMMARY | 2023-10-19 15:37 | XMS_ITS | Encounter Summary ---
Author Organization [facility] Address [address] [place] [address] Care Team Providers Care Painter Helper Spray Name Role Phone Miri Vilchis MD PhD Primary Care Provider Reason for Visit * Reason Onset Date Comments Other 07/01/2009 critical lab nati ue Encounter Details Date Type Department Care Team (Late st Contact Info) Description 07/01/2009 Telephone [facility] Adult Primary Care - [address] [address] Cookie Ronquillo RN Other (critical lab value) Social History Tobacco Use Types Packs/Day Years [...] Telephone Encounter - Cookie Ronquillo RN - 07/02/2009 0853 EDT SEE SECOND ENCOUNTER FOR PT STARTED 07/01 WELL SCANNED CRITICAL VALUE FORM. * Telephone Encounter - Cookie Ronquillo RN - 07/01/[address] Vilchis and she is aware that pt has not been contacted yet. * Telephone Encounter - Cookie Ronquillo RN - 07/01/2009 1705 EDT Called pt again, no answer. * Telephone Encounter - Cookie Ronquillo RN - 07/01/2009 1705 EDT See second encounter for this pt started today by ROM Zaman. * Telephone Encounter - Cookie Ronquillo RN - 07/01/2009 1424 EDT Attempted to contact pt again, no answer. Left a second message requesting a return call today. * Telephone Encounter - Cookie Ronquillo RN - 07/01/2009 1316 EDT Received call from Kiah in the lab at 1255. Reporting critical lab value. Serum glucose drawn thisAM was 49. Spoke with Dr. Vilchis her PCP. See scanned critical value documentation. Per Dr. Vilchis, to call pt see if she had been fasting and if she is now feeling ok? Called pt at home number. No answer. Left message for a call back. No other contact numbers listed. Will try to contact again. documented in this encounter Plan of Treatment Upcoming Encounters Date Type Department Care Team (Late st Contact Info) Description 10/22/2023 13:25 EDT Hospital Encounter [facility] [place] [address] [place] [phone] Walker Pride MD [address] [place] [address], [address] [place] [phone] 10/22/2023 13:25 EDT - 10/22/2023 17:00 EDT Surgery [facility] [place] [address] [place] [phone] Walker Pride MD [address] [place] [address], [address] [place] [phone] Left L34 decompression, redo left L45 decompression [58007 (CPT??)] 11/22/2023 10:00 EDT Post-op Visit [facility] Neurosurgery - [address] [phone] Madiha Hurtado NP [address] [place] [address], [address] [place] [phone] Scheduled Procedures Name Priority Associated Diagnoses Date/Ti me LAMINECTOMY, SPINE, LUMBAR, 1 LEVEL, WITH FORAMINOTOMY OR FACETECTOMY Lumbar radiculopathy 10/22/2023 13:25 EDT LAMINECTOMY, SPINE, WITH FACETECTOMY AND FORAMINOTOMY, ADDITIONAL LEVEL FOLLOWING INITIAL LEVEL Lumbar radiculopathy 10/22/2023 13:25 EDT documented as of this encounter Visit Diagnoses Not on filedocumented in this encounter Care Teams Painter Helper Spray Relationship Specialty Start Date End Date Miri Vilchis MD PhD [address] [place] [phone] PCP - General 08/20/08 11/21/18 documented as of this encounter
--- OUTSIDE RECORDS SUMMARY | 2023-10-19 15:37 | XMS_ITS | Encounter Summary ---
Author Organization [facility] Address [address] [place] [address] Care Team Providers Care Drupal Architect Name Role Phone Miri Vilchis MD PhD Primary Care Provider Encounter Details Date Type Department Care Team (Latest Contact Info) Description 05/02/2009 16:19 EST - 05/02/2009 23:59 EST Hospital Encounter [place] [phone] [place] [address] Chay Hunter MD Discharge Disposition: Auto Discharge Social History Tobacco [...] Sig Dispensed Refills Start Date End Date HYDROmorphone (DILAUDID) 2 mg tablet Take 1-2 Tabs by mouth every 6 hours as needed for Pain. 10 Tab 0 04/07/2009 06/28/2009 UNABLE TO FIND control 06/28/2009 documented as of this encounter Discharge Disposition Disposition Code Departure Means Destination Auto Discharge Home documented in this encounter Plan of Treatment Upcoming Encounters Date Type Department Care Team (Late st Contact Info) Description 10/22/2023 13:25 EDT Hospital Encounter [facility] OR [address] [place] [phone] Walker Pride MD [address] [place] [address], [facility] [address] [place] [phone] 10/22/2023 13:25 EDT - 10/22/2023 17:00 EDT Surgery [facility] OR [address] [place] [phone] Walker Pride MD [address] [place] [address] [address] [place] [phone] Left L34 decompression, redo left L45 decompression [33967 (CPT??)] 11/22/2023 10:00 EDT Post-op Visit [facility] Neurosurgery - [address] [phone] Madiha Hurtado NP [address] [place] [address], [facility] [address] [place] [phone] Scheduled Procedures Name Priority Associated Diagnoses Date/Ti me LAMINECTOMY, SPINE, LUMBAR, 1 LEVEL, WITH FORAMINOTOMY OR FACETECTOMY Lumbar radiculopathy 10/22/2023 13:25 EDT LAMINECTOMY, SPINE, WITH FACETECTOMY AND FORAMINOTOMY, ADDITIONAL LEVEL FOLLOWING INITIAL LEVEL Lumbar radiculopathy 10/22/2023 13:25 EDT documented as of this encounter Procedures Procedure Name Priority Date/Time Associated Diagnosis Comments ABDOMEN AP 1 VIEW 05/02/2009 16: 31 EST documented in this encounter Results * ABDOMEN AP 1 VIEW (05/02/2009 16:31 EST) Anatomical Region Laterality Modality Other 05/02/2009 16:3 1 EST 05/02/2009 16:44 EST Narrative 05/02/2009 16:44 EST History/Comments: ??To assess motility of sitz marker, abdominal pain. ABDOMEN AP 1 VIEW ?? Findings: ??Compare exam April 30, 2009 Two residual Sitz markers are present, one in the mid transverse colon and one in the proximal descending colon. There is a large amount of stool in the colon. Procedure Note 05/02/2009 History/Comments: To assess motility of sitz marker, abdominal pain. ABDOMEN AP 1 VIEW Findings: Compare exam April 30, 2009 Two residual Sitz markers are present, one in the mid transverse colon and one in the proximal descending colon. There is a large amount of stool in the colon. Chay Hunter MD IMG DIAGNOSTIC IMAGI NG ORDERABLES documented in this encounter Visit Diagnoses Not on filedocumented in this encounter Care Teams Drupal Architect Relationship Specialty Start Date End Date Miri Vilchis MD PhD [address] [place] [phone] PCP - General 08/20/08 11/21/18 documented as of this encounter
--- OUTSIDE RECORDS SUMMARY | 2023-10-19 15:37 | XMS_ITS | Encounter Summary ---
Author Organization [facility] Address [address] [place] [address] Care Team Providers Care Greens Keeper Name Role Phone Miri Vilchis MD PhD Primary Care Provider Reason for Visit * Reason Onset Date Comments Results 07/01/2009 Encounter Details Date Type Department Care Team (Late st Contact Info) Description 07/01/2009 Telephone [facility] Adult Primary Care - [address] [address] Destinee Montague PA-C [address] [place] [phone] Results Social History Tobacco Use Types [...] Telephone Encounter - Patt Duong RN - 07/03/2009 0381 EDT The patient indicates understanding of these issues and agrees with the plan. Pt given follow up OVfor 07/17/09. * Telephone Encounter - Destinee Montague PA-C - 07/02/2009 1801 EDT Since new lab results indicate that pt may also have low vitamin B12 level, I would recommend that she have a f/u with the office in the next 2-3 weeks for reeval. I would like to have pt try the small multiple meals and snacks and not go for more than 2hrs without some food. I would like to see how she is doing at that time. She may also need a pelvic US if her menses have not returned to normal. I would like to reeval pt as noted above. * Telephone Encounter - Cookie Ronquillo RN - 07/02/2009 7659 EDT Called pt and she said she has not received our messages. She does say she has times of feeling cold, light headed, shaky and fatigued. This happens approx ahalf dozen times on a usual day. Usually in the AM before breakfast. At the end of class before a meal. She also mentioned she feels like she has poor circulation in her feet, leg and arms. She gets a feeling like a gayla-horse at random times. Wakes up at night with L hip, L leg and L foot cramps. At time of labs being drawn yesterday she was feeling poorly but improved as she does throughout a usual day. She feels fine at this time. She was given message below about small meals snacks during her day, she verbalized understanding. Should she have a f/u visit to discuss these other issues? Orjust check blood glucose again (if possible as a nurse visit)? * Telephone Encounter - Destinee Montague PA-C - 07/02/2009 1398 EDT Can we contact pt's emergency #? Abnormal CBC - need to add vitamin B12 level. Pt will need repeat CBC in 2-3 weeks. Her platelet level was lower. This should be rechecked. * Telephone Encounter - Cookie Ronquillo RN - 07/02/2009 0858 EDT SEE OTHER ENCOUNTER STARTED 07/01 WELL SCANNED CRITICAL VALUE FORM FOR MORE ON THIS SAME ISSUE. * Telephone Encounter - Destinee Montague PA-C - 07/01/2009 1539 EDT Yes, pt should have a repeat blood sugar checked in the next several days. Could pt come to office for a nurse visit fingerstick? Would it be better for me to order another lab draw to check glucose? * Telephone Encounter - Cookie Ronquillo RN - 07/01/2009 1452 EDT Destinee, there is another encounter started today. Dr. Vilchis also aware of serum glucose. Dr. Vilchis wanted me to check on pt and see how she is doing. I have left 2 messages for her and will try again today. I will give her your recommendations when I speak with her. Anything else, should she recheck blood glucose sometime? * Telephone Encounter - Destinee Montague PA-C - 07/01/2009 1308 EDT Pt's blood sugar was quite low at the time of the blood draw. I would recommend that she eat multiple small meals/snacks throughout the day to prevent hypoglycemia. Her blood sugar was 49. Normal is above 70. I know pt has been having difficulty with stool. Please inform pt. documented in this encounter Plan of Treatment Upcoming Encounters Date Type Department Care Team (Late st Contact Info) Description 10/22/2023 13:25 EDT Hospital Encounter [facility] OR [address] [place] [phone] Walker Pride MD [address] [place] [phone] 10/22/2023 13:25 EDT - 10/22/2023 17:00 EDT Surgery [facility] OR [address] [place] [phone] Walker Pride MD [address] [place] [phone] Left L34 decompression, redo left L45 decompression [[id number] (CPT??)] 11/22/2023 10:00 EDT Post-op Visit [facility] Neurosurgery - [address] [phone] Madiha Hurtado NP [address] [place] [phone] Scheduled Procedures Name Priority Associated Diagnoses Date/Ti me LAMINECTOMY, SPINE, LUMBAR, 1 LEVEL, WITH FORAMINOTOMY OR FACETECTOMY Lumbar radiculopathy 10/22/2023 13:25 EDT LAMINECTOMY, SPINE, WITH FACETECTOMY AND FORAMINOTOMY, ADDITIONAL LEVEL FOLLOWING INITIAL LEVEL Lumbar radiculopathy 10/22/2023 13:25 EDT documented as of this encounter Procedures Procedure Name Priority Date/Time Associated Diagnosis Comments OUTPATIENT ADD-ON Routine 07/02/2009 18: 02 EDT OUTPATIENT ADD-ON Routine 07/02/2009 17: 45 EDT documented in this encounter Results * OUTPATIENT ADD-ON (07/02/2009 18:02 EDT) Tests to be added vitamin D [facility] Diagnosis Code paresthesias in extremities, fatigue [facility] Number for problems [id number] [facility] Accession number [id number] [facility] Acknowledge ABP Done [facility] 07/02/2009 18:0 2 EDT 07/02/2009 18:08 EDT Destinee H Eddi [facility] HEMATOLOGY & PF4 ORDERABLES Performing Organization Address [facility] [address] [facility] Co de Phone Number [facility] [address] [place] [address] * OUTPATIENT ADD-ON (07/02/2009 17:45 EDT) Tests to be added vitamin B12 [facility] Diagnosis Code elevated MCV [facility] Number for problems [id number] [facility] Accession number [id number] [facility] Acknowledge ABP Done [facility] 07/02/2009 17:4 5 EDT 07/02/2009 17:47 EDT Destinee Price Eddi [facility] HEMATOLOGY & PF4 ORDERABLES Performing Organization Address [facility] [address]/[facility] de Phone Number [facility] [address] [place] [address] documented in this encounter Visit Diagnoses Diagnosis Abnormal CBC- Primary Other abnormal blood chemistry Lumbar radiculopathy Thoracic or lumbosacral neuritis or radiculitis, unspecified documented in this encounter Care Teams Greens Keeper Relationship Specialty Start Date End Date Miri Vilchis MD PhD [address] [place] [phone] PCP - General 08/20/08 11/21/18 documented as of this encounter
--- OUTSIDE RECORDS SUMMARY | 2023-10-19 15:37 | XMS_ITS | Encounter Summary ---
Author Organization [facility] Address [address] [place] [address] Care Team Providers Care Lay Brother Name Role Phone Nataly Vilchis MD PhD Primary Care Provider Reason for Visit * Reason Comments Medical Evaluation Pt reports difficult y urinating, painful urination, frequency that has been occurring for the last two months. Pt has been evaluated for UTI by Dr. Vilchis was put on medication with no relief. Pt has seen Dr. Hicks? urologist at [facility] and is scheduled for a CT scan tomorrow AM. Pt reports pain is unbearable so has come to ED.Pt also reports she is constipated last BM was night and wasnot very much Encounter Details Date Type Department Care Team (Late st Contact Info) Description 04/07/2009 7:42 EST - 04/07/2009 18:24 EST Emergency [facility] Emergency Department - [address] [address] Jamison Arias MD [address] [facility], [address] [place] [address] Emergency, MD Jamie Abdominal pain Discharge Disposition: Home or Self Care Social [...] Sign Reading Time Taken Comments Blood Pressure 100/67 04/07/2009 1823 EST Pulse 78 04/07/2009 1823 EST Temperature 36.6 ??C (97.9 ??F) 04/07/2009 1823 EST Respiratory Rate 18 04/07/2009 1823 EST Oxygen Saturation 98% 04/07/2009 1823 EST Inhaled Oxygen Concentration - - Weight - - Height - - Body Mass Index - - documented in this encounter Discharge Instructions * Discharge Instructions* Jamison Arias MD - 04/07/2009 17:45 EST 1) return for vomiting, fever, increasing pain, vaginal pain or discharge, or other concerns 2) call Dr Vilchis tomorrow--discuss all results and a plan for further treatment 3) CT and ultrasound here are normal. * Attachments The following attachments cannot be sent through Care Everywhere. * ABDOMINAL PAIN: AFTER YOUR VISIT TO THE EMERGENCY ROOM ([facility]) documented in this encounter Medications at Time of Discharge Medication Sig Dispensed Refills Start Date End Date HYDROmorphone (DILAUDID) 2 mg tablet Take 1-2 Tabs by mouth every 6 hours as needed for Pain. 10 Tab 0 04/07/2009 06/28/2009 UNABLE TO FIND control 06/28/2009 documented as of this encounter Ordered Prescriptions Prescription Sig Dispensed Refills Start Date End Da te HYDROmorphone (DILAUDID) 2 mg tablet Take 1-2 Tabs by mouth every 6 hours as needed for Pain. 10 Tab 0 04/07/2009 06/28/2009 documented in this encounter Discharge Disposition Disposition Code Departure Means Destination Home or Self Care Wheelchair Home documented in this encounter ED Notes * Tawana Rice RN - 04/07/2009 1639 EST Pt cont to complaine re long wait for ct results............. Dr arias to [facility] * Tawana Rice RN - 04/07/2009 1013 EST Still at scan * Austin Huynh. - 04/07/2009 0840 EST Blood drawn via saline lock per protocol, tiger and purple tube(s) sent to lab per order. * Jamison Arias MD - 04/07/2009 0811 EST DOS: 04/07/2009 Chief Complaint Patient presents with ??? Medical Evaluation Pt reports difficulty urinating, painful urination, frequency that has been occurring for the last two months. Pt has been evaluated for UTI by Dr. Vilchis was put on medication with no relief. Pt has seen Dr. Hicks? urologist at [facility] and is scheduled for a CT scan tomorrow AM. Pt reports pain is unbearable so has come to ED.Pt also reports she is constipated last BM was night and wasnot very much HPI Comments: Abdominal pain over several days, also into hip, and right lower back. No nausea but no appetite. No vomiting No dischrge, no fever Patient is a 18 y.o. female presenting with medical evaluation. The history is provided by the patient. Medical Evaluation Episode Onset: several days of increasing painful urination, paiful right lower abd, right flank. Impression was urinary, though eval normal for uti thus far. IN increasing pain and cannot wair for CT tomorrow. The problem occurs continuously. The problem has been gradually worsening. The problem is severe. Nothing (has tried laxatives) relieves the symptoms. The symptoms are worsened by activityand movement. Associated symptoms include abdominal pain and constipation. Pertinent negatives include no fever, no diarrhea, no nausea, no vomiting and no muscle aches. She has been eating and drinking normally. Urine output has been normal (still has some dysuria). There were no sick contacts. Recently, medical care has been given by the PCP and by a specialist (urology). Services received include medications given. Review of Systems Constitutional: Negative for fever. Respiratory: Negative for shortness of breath. Gastrointestinal: Positive for abdominal pain and constipation. Negative for nausea, vomiting and diarrhea. Genitourinary: Negative for vaginal bleeding, vaginal discharge and pelvic pain. Psychiatric/Behavioral: Negative for confusion. All other systems reviewed and are negative. History reviewed. No pertinent past medical history. History reviewed. No pertinent past surgical history. No Known Allergies History Substance Use Topics ??? Tobacco Use: Never ??? Alcohol Use: No History reviewed. No pertinent family history. BP 94/61 Pulse 61 Temp(Src) 36 ??C (96.8 ??F) (Tympanic) Resp 20 SpO2 100% Physical Exam Nursing note and vitals reviewed. Constitutional: She is oriented. She appears well-developed and well-nourished. She appears not diaphoretic. No distress. HENT: Head: Normocephalic and atraumatic. Mouth/Throat: Oropharynx is clear and moist. Eyes: Conjunctivae are normal. Pupils are equal, round, and reactive to light. Right eye exhibits no discharge. Left eye exhibits no discharge. No scleral icterus. Neck: Normal range of motion. Neck supple. Cardiovascular: Normal heart sounds and intact distal pulses. Pulmonary/Chest: Effort normal and breath sounds normal. Abdominal: Soft. She exhibits no distension. Tenderness is present. She has no rebound. Tender along right lower and right upper abd, with right flank also tender Musculoskeletal: She exhibits no edema and no tenderness. Neurological: She is alert and oriented. No cranial nerve deficit. Coordination normal. Skin: Skin is warm and dry. She is not diaphoretic. Psychiatric: She has a normal mood and affect. Radiology orders: None Procedures ED Course: 04/07/2009 12:15 PM: Has had recurrence of pain, and has persistent ttp in the RLQ, [place] especially. Discussed US with radiology and they feel that the US are negative. CT ordered 04/07/2009 5:39 PM: Reviewed with Dr Salguero, and he and I agree--normal study. Discussed with parents and with pt. This could be constipation, though flank ttp, and intensity of pain argue against this. Pt and mother are amenable to going home, discussed with coverage for Dr Vilchis. Discharge Prescriptions New Prescriptions No Discharge Prescriptions for this patient MDM Number of Diagnoses and Management Options Abdominal pain: General comments: 5 Amount and/or Complexity of Data Reviewed Clinical lab tests: reviewed and ordered Tests in the radiology section of CPT??: ordered and reviewed Discuss the patient with other providers: yes Encounter Diagnoses Code Name Primary? Qualifier ??? 789.00AP Abdominal pain PCP: NATALY VILCHIS MD 04/07/2009 8:11 AM documented in this encounter Miscellaneous Notes * Scanned Note-Null - Inpatient, Physician - 04/08/2009 0843 EST documented in this encounter Plan of Treatment Upcoming Encounters Date Type Department Care Team (Late st Contact Info) Description 10/22/2023 13:25 EDT Hospital Encounter [facility] OR [address] [place] [address] [phone] Walker Pride MD [address] [place] [phone] 10/22/2023 13:25 EDT - 10/22/2023 17:00 EDT Surgery [facility] OR [address] [place] [address] [id number] Walker Prdie MD [address] [place] [phone] Left L34 decompression, redo left L45 decompression [40783 (CPT??)] 11/22/2023 10:00 EDT Post-op Visit [facility] Neurosurgery - [address] [phone] Madiha Hurtado NP [address] [place] [phone] Pending Results Name Type Priority Associated Diagnoses Date /Time POCT URINE DIPSTICK Point of Care Testing STAT 04/07/2009 9:12 EST Scheduled Procedures Name Priority Associated Diagnoses Date/Ti me LAMINECTOMY, SPINE, LUMBAR, 1 LEVEL, WITH FORAMINOTOMY OR FACETECTOMY Lumbar radiculopathy 10/22/2023 13:25 EDT LAMINECTOMY, SPINE, WITH FACETECTOMY AND FORAMINOTOMY, ADDITIONAL LEVEL FOLLOWING INITIAL LEVEL Lumbar radiculopathy 10/22/2023 13:25 EDT documented as of this encounter Procedures Procedure Name Priority Date/Time Associated Diagnosis Comments CT ABDOMEN, PELVIS W CONTRAST 04/07/2009 15:14 EST RAD US PELVIS, TRANSVAGINAL, AND LIMITED DOPPLER 04/07/2009 10:50 EST RAD US ABDOMEN ONE ORGAN/QUADRANT 04/07/2009 9:47 EST COMPLETE BLOOD COUNT AND DIFFERENTIAL STAT 04/07/2009 8:29 EST QUANT BETA HCG, STAT 04/07/2009 8:29 EST BUN STAT 04/07/2009 8:29 EST LIPASE STAT 04/07/2009 8:29 EST GLUCOSE, SERUM STAT 04/07/2009 8:29 EST CREATININE STAT 04/07/2009 8:29 EST HEPATIC FUNCTION PANEL (ALB,ALK PHOS,ALT,AST,DBIL,TOT EDISON,TOT PROT) STAT 04/07/2009 8:29 EST ELECTROLYTES STAT 04/07/2009 8:29 EST documented in this encounter Results * CT ABDOMEN, PELVIS W CONTRAST (04/07/2009 15:14 EST) Anatomical Region Laterality Modality Other 04/07/2009 15:1 4 EST 04/07/2009 18:55 EST Narrative 04/07/2009 18:[address] ABDOMEN, PELVIS Apr 07, 2009 03:14:00 PM Signs and Symptoms/Comments: ??MEDICAL EVALUATION Comparison: Ultrasound performed earlier on the same day. Technique: Helical images were obtained from the domes of the diaphragm to the iliac crests. Technique Pelvis: Immediately after the above preparation, axial images were obtained from the iliac crests to the ischial tuberosities. Oral contrast was given prior to scanning. ??During the exam, intravenous administration of 100 cc of 370% nonionic contrast at a rate of 2 cc/second was administered. Findings: The visualized lung bases demonstrate mild dependent atelectasis. The liver, spleen, adrenal glands, gallbladder and pancreas are unremarkable. A small cyst is noted in the upper pole of the right kidney and both kidneys are otherwise unremarkable. There is no evidence of retroperitoneal or mesenteric adenopathy. A moderate amount of stool is noted within the colon extending from the rectum to the cecum. A normal appearing appendix is noted in the right lower quadrant. There is a full, normal appearing bladder. The uterus and left adnexa are grossly unremarkable. A small cyst is noted in the right ovary. There is no evidence of free air, free fluid or abscess. Bone windows are unremarkable. Impression: 1.No evidence of appendicitis. 2. Right renal cyst. Procedure Note 04/07/2009 CT ABDOMEN, PELVIS Apr 07, 2009 03:14:00 PM Signs and Symptoms/Comments: MEDICAL EVALUATION Comparison: Ultrasound performed earlier on the same day. Technique: Helical images were obtained from the domes of the diaphragm to the iliac crests. Technique Pelvis: Immediately after the above preparation, axial images were obtained from the iliac crests to the ischial tuberosities. Oral contrast was given prior to scanning. During the exam, intravenous administration of 100 cc of 370% nonionic contrast at a rate of 2 cc/second was administered. Findings: The visualized lung bases demonstrate mild dependent atelectasis. The liver, spleen, adrenal glands, gallbladder and pancreas are unremarkable. A small cyst is noted in the upper pole of the right kidney and both kidneys are otherwise unremarkable. There is no evidence of retroperitoneal or mesenteric adenopathy. A moderate amount of stool is noted within the colon extending from the rectum to the cecum. A normal appearing appendix is noted in the right lower quadrant. There is a full, normal appearing bladder. The uterus and left adnexa are grossly unremarkable. A small cyst is noted in the right ovary. There is no evidence of free air, free fluid or abscess. Bone windows are unremarkable. Impression: 1.No evidence of appendicitis. 2. Right renal cyst. Jamison Arias MD IMG CT ORDERABLES * RAD US PELVIS, TRANSVAGINAL, AND LIMITED DOPPLER (04/07/2009 10:50 EST) Anatomical Region Laterality Modality Other 04/07/2009 10:5 0 EST 04/07/2009 15:29 EST Narrative 04/07/2009 15:29 EST US PELVIS, TRANSVAGINAL, AND LMT DOPPLER ??Apr 07, 2009 10:50:00 AM US ABD one ORG/Quad ??Apr 07, 2009 10:50:00 AM Clinical History/Comments: MEDICAL EVALUATION Comparison: None Technique: Right upper quadrant grayscale and color ultrasound, grayscale and color transvaginal ultrasound of the pelvis was performed the Findings: The uterus is anteverted with a normal echotexture measuring 7 x 4 x 2.5 cm. The endometrium has a normal thickness measuring approximately 2 mm with a homogeneous echotexture. The right ovary has a normal appearance measuring 4 x 2 x 1.5 cm and contains normal blood flow. There are no cysts, masses or calcifications in the right ovary. The left ovary also has a normal appearance measuring 3 x 2 x 1.5 cm with normal blood flow and no masses. There is a small nabothian cyst seen in the cervix, otherwise the cervix has a normal appearance. A small amount of anechoic free fluid is seen in the cul-de-sac. The visualized portions of the liver shows a normal echotexture and contour. The right kidney contains a simple cyst in the upper pole measuring approximately 2 x 1.5 x 1.5 cm. There is no hydronephrosis, calculi or masses in the right kidney. The right kidney measures 10.5 cm. No distal dilated ureter is seen. The appendix is not visualized on this study. Images of the right lower quadrant are unremarkable. Impression: 1. No evidence of ovarian torsion. 2. Small nabothian cyst. 3. Small amount of simple free fluid in the cul-de-sac. I have personally reviewed the images and the above interpretation and agree with the findings. Procedure Note Eric Salguero MD / Eric Salguero MD / Eric Salguero MD - 04/07/2009 US PELVIS, TRANSVAGINAL, AND LMT DOPPLER Apr 07, 2009 10:50:00 AM US ABD one ORG/Quad Apr 07, 2009 10:50:00 AM Clinical History/Comments: MEDICAL EVALUATION Comparison: None Technique: Right upper quadrant grayscale and color ultrasound, grayscale and color transvaginal ultrasound of the pelvis was performed the Findings: The uterus is anteverted with a normal echotexture measuring 7 x 4 x 2.5 cm. The endometrium has a normal thickness measuring approximately 2 mm with a homogeneous echotexture. The right ovary has a normal appearance measuring 4 x 2 x 1.5 cm and contains normal blood flow. There are no cysts, masses or calcifications in the right ovary. The left ovary also has a normal appearance measuring 3 x 2 x 1.5 cm with normal blood flow and no masses. There is a small nabothian cyst seen in the cervix, otherwise the cervix has a normal appearance. A small amount of anechoic free fluid is seen in the cul-de-sac. The visualized portions of the liver shows a normal echotexture and contour. The right kidney contains a simple cyst in the upper pole measuring approximately 2 x 1.5 x 1.5 cm. There is no hydronephrosis, calculi or masses in the right kidney. The right kidney measures 10.5 cm. No distal dilated ureter is seen. The appendix is not visualized on this study. Images of the right lower quadrant are unremarkable. Impression: 1. No evidence of ovarian torsion. 2. Small nabothian cyst. 3. Small amount of simple free fluid in the cul-de-sac. I have personally reviewed the images and the above interpretation and agree with the findings. Jamison Arias MD IMG US ORDERABLES * RAD US ABDOMEN ONE ORGAN/QUADRANT (04/07/2009 9:47 EST) Anatomical Region Laterality Modality Other 04/07/2009 9:47 EST 04/07/2009 15:29 EST Narrative 04/07/2009 15:29 EST US PELVIS, TRANSVAGINAL, AND LMT DOPPLER ??Apr 07, 2009 10:50:00 AM US ABD one ORG/Quad ??Apr 07, 2009 10:50:00 AM Clinical History/Comments: MEDICAL EVALUATION Comparison: None Technique: Right upper quadrant grayscale and color ultrasound, grayscale and color transvaginal ultrasound of the pelvis was performed the Findings: The uterus is anteverted with a normal echotexture measuring 7 x 4 x 2.5 cm. The endometrium has a normal thickness measuring approximately 2 mm with a homogeneous echotexture. The right ovary has a normal appearance measuring 4 x 2 x 1.5 cm and contains normal blood flow. There are no cysts, masses or calcifications in the right ovary. The left ovary also has a normal appearance measuring 3 x 2 x 1.5 cm with normal blood flow and no masses. There is a small nabothian cyst seen in the cervix, otherwise the cervix has a normal appearance. A small amount of anechoic free fluid is seen in the cul-de-sac. The visualized portions of the liver shows a normal echotexture and contour. The right kidney contains a simple cyst in the upper pole measuring approximately 2 x 1.5 x 1.5 cm. There is no hydronephrosis, calculi or masses in the right kidney. The right kidney measures 10.5 cm. No distal dilated ureter is seen. The appendix is not visualized on this study. Images of the right lower quadrant are unremarkable. Impression: 1. No evidence of ovarian torsion. 2. Small nabothian cyst. 3. Small amount of simple free fluid in the cul-de-sac. I have personally reviewed the images and the above interpretation and agree with the findings. Procedure Note Eric Salguero MD / Eric Salguero MD / Eric Salguero MD - 04/07/2009 US PELVIS, TRANSVAGINAL, AND LMT DOPPLER Apr 07, 2009 10:50:00 AM US ABD one ORG/Quad Apr 07, 2009 10:50:00 AM Clinical History/Comments: MEDICAL EVALUATION Comparison: None Technique: Right upper quadrant grayscale and color ultrasound, grayscale and color transvaginal ultrasound of the pelvis was performed the Findings: The uterus is anteverted with a normal echotexture measuring 7 x 4 x 2.5 cm. The endometrium has a normal thickness measuring approximately 2 mm with a homogeneous echotexture. The right ovary has a normal appearance measuring 4 x 2 x 1.5 cm and contains normal blood flow. There are no cysts, masses or calcifications in the right ovary. The left ovary also has a normal appearance measuring 3 x 2 x 1.5 cm with normal blood flow and no masses. There is a small nabothian cyst seen in the cervix, otherwise the cervix has a normal appearance. A small amount of anechoic free fluid is seen in the cul-de-sac. The visualized portions of the liver shows a normal echotexture and contour. The right kidney contains a simple cyst in the upper pole measuring approximately 2 x 1.5 x 1.5 cm. There is no hydronephrosis, calculi or masses in the right kidney. The right kidney measures 10.5 cm. No distal dilated ureter is seen. The appendix is not visualized on this study. Images of the right lower quadrant are unremarkable. Impression: 1. No evidence of ovarian torsion. 2. Small nabothian cyst. 3. Small amount of simple free fluid in the cul-de-sac. I have personally reviewed the images and the above interpretation and agree with the findings. Jamison Arias MD [facility] US ORDERABLES * HCG (04/07/2009 8:29 EST) HCG <4 <4 mIU/ml [facility] Comment: Reference Range: Positive = >10 Borderline = 4-10 recommend repeat. Negative = <4 Blood specimen (specimen) 04/07/2009 8:29 EST 04/07/2009 8:40 EST Jamison Arias MD CHEMISTRY & BLOOD GAS ORDERABLES [facility] [address] [place] [address] * (ABNORMAL) HEMAGRAM AND DIFFERENTIAL (04/07/2009 8:29 EST) WBC 3.77(L) 4.0 - 12.4 K/cmm [facility] RBC 3.72(L) 3.86 - 5.04 M/cmm [facility] Hemoglobin 12.6 11.6 - 15.2 gm/dl [facility] HCT 35.9 34.9 - 44.4 % [facility] MCV 96 81 - 98 fl [facility] MCH 33.9(H) 26.7 - 33.3 pg [facility] MCHC 35.1 32.1 - 35.9 gm/dl [facility] PLT 185 141 - 320 K/cmm [facility] RDW-CV 12.4 11.7 - 14.6 % [facility] Neutrophils 41.9(L) 45.5 - 79.7 % [facility] Lymphocytes 49.8(H) 15.0 - 46.8 % [facility] Monocytes 6.6 1.8 - 12.0 % [facility] Eosinophils 1.1 0.6 - 6.9 % [facility] Basophils 0.6 0.2 - 1.4 % [facility] ABS Neutrophils 1.58(L) 2.20 - 8.85 K/cmm [facility] ABS Lymphs 1.88 1.09 - 3.30 K/cmm [facility] ABS Monocytes 0.25 0.1 - 0.8 K/cmm [facility] ABS Eosinophils 0.04 0.03 - 0.61 K/cmm [facility] ABS Basophils 0.02 0.01 - 0.11 K/cmm [facility] Type of Diff: Automated [facility] Blood specimen (specimen) 04/07/2009 8:29 EST 04/07/2009 8:40 EST Jamison Arias MD PACKAGES & DNA IA OBE ORDERABLES [facility] [address] [place] [address] * LIPASE (04/07/2009 8:29 EST) Lipase 83 0 - 250 U/L [facility] Blood specimen (specimen) 04/07/2009 8:29 EST 04/07/2009 8:40 EST Jamison Arias MD CHEMISTRY & BLOOD GAS ORDERABLES Performing Organization Address [facility] Co de Phone Number [facility] [address] [place] [address] * (ABNORMAL) LIVER FUNCTION TESTS (04/07/2009 8:29 EST) Albumin 3.7 3.4 - 4.9 g/dl [facility] Total Protein 6.3(L) 6.5 - 8.3 g/dl [facility] Alkaline Phosphatase 38 38 - 126 U/L [facility] ALT 22 9 - 52 U/L [facility] AST 23 15 - 46 U/L [facility] Unconjugated Bilirubin 0.6 0.1 - 1.1 mg/dl [facility] Conjugated Bilirubin 0.0 0.0 - 0.3 mg/dl [facility] Bilirubin, Total <0.5 0.2 - 1.3 mg/dl [facility] Blood specimen (specimen) 04/07/2009 8:29 EST 04/07/2009 8:40 EST Jamison Arias MD CHEMISTRY & BLOOD GAS ORDERABLES Performing Organization Address [facility] Co de Phone Number [facility] [address] [place] [address] * CREATININE (04/07/2009 8:29 EST) Creatinine 0.90 0.7 - 1.5 mg/dl [facility] GFR, Calculated >60 ml/min/1.7 3m2 [facility] Blood specimen (specimen) 04/07/2009 8:29 EST 04/07/2009 8:40 EST Jamison Arias MD CHEMISTRY & BLOOD GAS ORDERABLES Performing Organization Address [facility] Co de Phone Number [facility] [address] [place] [address] * BUN (04/07/2009 8:29 EST) BUN 10 10 - 26 mg/dl [facility] Blood specimen (specimen) 04/07/2009 8:29 EST 04/07/2009 8:40 EST Jamison Arias MD CHEMISTRY & BLOOD GAS ORDERABLES Performing Organization Address [facility] de Phone Number [facility] [address] [place] [address] * ELECTROLYTES (04/07/2009 8:29 EST) Sodium 138 136 - 145 mEq/L [facility] Potassium 4.1 3.5 - 5.0 mEq/L [facility] Chloride 103 96 - 110 mEq/L [facility] CO2 28 24 - 32 mEq/L [facility] Blood specimen (specimen) 04/07/2009 8:29 EST 04/07/2009 8:40 EST Jamison Arias MD CHEMISTRY & BLOOD GAS ORDERABLES Performing Organization Address [facility] Phone Number [facility] [address] [place] [address] * GLUCOSE, SERUM (04/07/2009 8:29 EST) Glucose, Serum 78 70 - 100 mg/dl [facility] Blood specimen (specimen) 04/07/2009 8:29 EST 04/07/2009 8:40 EST Jamison Arias MD CHEMISTRY & BLOOD GAS ORDERABLES Performing Organization Address [facility] Phone Number [facility] [address] [place] [address] documented in this encounter Visit Diagnoses Diagnosis Abdominal pain Abdominal pain, unspecified site Lumbar radiculopathy Thoracic or lumbosacral neuritis or radiculitis, unspecified documented in this encounter Administered Medications Inactive Administered Medications - up to 3 most recent administrations Medication Order MAR Action Action Date Dose Rate Site diatrizoate meglumine-sodium in sterile water (bottle) (GASTROGRAFIN) oral solution 1,000 mL, oral, Once (Without Time Specified), 1 dose, Starting on 04/07/09 at 1207, Until 1/24/10 at 1223, STAT Given 04/07/2009 12:23 EST 1,000 mL disimpaction enema 1 Bottle 1 Bottle, rectal, ONCE PRN, 1 dose, Starting on 04/07/09 at 1744, Until 04/07/09 at 1822, constipation, STAT Given 04/07/2009 18:21 EST 1 Bottle fentanyl citrate (PF) 50 mcg/mL injection 25 mcg 25 mcg, intravenous, NOW X1, 1 dose, On 04/07/09 at 0830, STAT Given 04/07/2009 8:41 EST 25 mcg HYDROmorphone (PF) (DILAUDID) 1 mg/mL injection 0.2 mg 0.2 mg, intravenous, NOW X1, 1 dose, On 04/07/09 at 1700, STAT Given 04/07/2009 16:46 EST 0.2 mg HYDROmorphone (PF) (DILAUDID) 1 mg/mL injection 1 mg 1 mg, intravenous, NOW X1, 1 dose, On 04/07/09 at 1230, STAT Given 04/07/2009 12:37 EST 1 mg Hydromorphone 2 mg Tab STARTER PACK 1 Package, oral, NOW X1, 1 dose, On 04/07/09 at 1800, STAT Given 04/07/2009 18:00 EST 1 Package sodium chloride 0.9 % 1,000 mL BOLUS 1,000 mL, intravenous, Once (Without Time Specified), 1 dose, Starting on 04/07/09 at 0830, Until 04/07/09 at 0830, STAT Given 04/07/2009 12:38 EST 1,000 mL Given 04/07/2009 8:30 EST 1,000 mL documented in this encounter Historical Medications * This list may reflect changes made after this encounter. Medication Sig Dispensed Refills Start Date End Date UNABLE TO FIND control 06/28/2009 added in this encounter Active and Recently Administered Medications Times are shown in EST. Scheduled Medication Order 04/05/2009 04/06/2009 04/07/2009 diatrizoate meglumine-sodium in sterile water (bottle) (GASTROGRAFIN) oral solution (COMPLETED) 1,000 mL, oral, Once (Without Time Specified), 1 dose, Starting on 04/07/09 at 1207, Until 04/07/09 at 1223, STAT 1223 (Given - Provid er: Tawana Rice RN) fentanyl citrate (PF) 50 mcg/mL injection 25 mcg (COMPLETED) 25 mcg, intravenous, NOW X1, 1 dose, On 04/07/09 at 0830, STAT 0841 (Given - Provid er: Tawana Rice RN) HYDROmorphone (PF) (DILAUDID) 1 mg/mL injection 0.2 mg (COMPLETED) 0.2 mg, intravenous, NOW X1, 1 dose, On 04/07/09 at 1700, STAT 1646 (Given - Provid er: Tawana Rice RN) HYDROmorphone (PF) (DILAUDID) 1 mg/mL injection 1 mg (COMPLETED) 1 mg, intravenous, NOW X1, 1 dose, On 04/07/09 at 1230, STAT 1237 (Given - Provid er: Tawana Rice RN) Hydromorphone 2 mg Tab STARTER PACK (COMPLETED) 1 Package, oral, NOW X1, 1 dose, On 04/07/09 at 1800, STAT 1800 (Given - Provid er: Mony Melendez) sodium chloride 0.9 % 1,000 mL BOLUS (COMPLETED) 1,000 mL, intravenous, Once (Without Time Specified), 1 dose, Starting on 04/07/09 at 0830, Until 04/07/09 at 0830, STAT 0830 (Given - Provid er: Tawana Rice RN)1238 (Given - Provider: Tawana Rice RN) PRN Medication Order 04/05/2009 04/06/2009 04/07/2009 disimpaction enema 1 Bottle (CANCELED) 1 Bottle, rectal, ONCE PRN, 1 dose, Starting on 04/07/09 at 1744, Until 04/07/09 at 1822, constipation, STAT 1821 (Given - Provid er: Mony Melendez) documented in this encounter Orders Medications Ordered That Sameer ht Not Have Been Administered Count Last Ordered Date First Ordered Date sodium phosphate (FLEET) enema 1 Enema 1 Diet Count Last Ordered Date First Orde red Date DIET NPO TIME SPECIFIED 04/07/2009 Nursing Count Last Ordered Date First Orde red Date INSERT PERIPHERAL IV 1 04/07/2009 documented in this encounter Care Teams Lay Brother Relationship Specialty Start Date End Date Nataly Vilchis MD PhD [address] [place] [phone] PCP - General 08/20/08 11/21/18 documented as of this encounter
--- OUTSIDE RECORDS SUMMARY | 2023-10-19 15:37 | XMS_ITS | Encounter Summary ---
Author Organization [facility] Address [address] [place] [address] Care Team Providers Care Belt Sander Name Role Phone Unavailable Primary Care Provider Unavailabl e Encounter Details Date Type Department Care Team (Late st Contact Info) Description 07/12/2007 10:06 EDT Hospital Encounter [facility] - [facility] [address] [place] [address] Destinee Holman, YARDAGE CONTROL OPERATOR [address] [place], [place] [phone] Unknown, Provider, Social History Tobacco Use Types Packs/Day Years [...] Master's degree (e.g., MA, MS, Joanne, MEd, TRANSITIONAL CARE NURSE, LILA) 06/19/2020 Sex and Gender Information Value [...] Description 10/22/2023 13:25 EDT Hospital Encounter [facility] OR [address] [place] [address] [phone] Walker Pride MD [address] [place] [address] [phone] 10/22/2023 13:25 EDT - 10/22/2023 17:00 EDT Surgery [facility] OR [address] [place] [address] [phone] Walker Pride MD [address] [place] [address] [phone] Left L34 decompression, redo left L45 decompression [80494 (CPT??)] 11/22/2023 10:00 EDT Post-op Visit [facility] Neurosurgery - [address] [phone] Madiha Hurtado NP [address] [place] [address] [phone] Scheduled Procedures Name Priority Associated Diagnoses Date/Ti me LAMINECTOMY, SPINE, LUMBAR, 1 LEVEL, WITH FORAMINOTOMY OR FACETECTOMY Lumbar radiculopathy 10/22/2023 13:25 EDT LAMINECTOMY, SPINE, WITH FACETECTOMY AND FORAMINOTOMY, ADDITIONAL LEVEL FOLLOWING INITIAL LEVEL Lumbar radiculopathy 10/22/2023 13:25 EDT documented as of this encounter Visit Diagnoses Not on filedocumented in this encounter
--- OUTSIDE RECORDS SUMMARY | 2023-10-19 15:37 | XMS_ITS | Encounter Summary ---
Author Organization [facility] Address [address] [place] [address] Care Team Providers Care Brush Hand Name Role Phone Miri Vilchis MD PhD Primary Care Provider Reason for Referral * Consult (Routine) - Closed Specialty Diagnoses / Procedures Referred By Contjordan mehta Referred To Contact Urology Diagnoses Frequent urination Frequent urination at night Destinee Montague PA-C [address] [place] [phone] Referral ID Status Reason Start Date Expiration Date V isits Requested Visits Authorized [id number] Closed Specialty Services Required 09/11/2009 1 1 Question Answer Reason for Request: frequent urination. nocturia q2hrs. needs eval, currently on oxybutinin * Consult (Routine) - Closed Specialty Diagnoses / Procedures Referred By Contac t Referred To Contact Nutrition Diagnoses Hypoglycemia Destinee Montague PA-C [address] [place] [phone] [facility] [address] [place] [address] Referral ID Status Reason Start Date Expiration Date V isits Requested Visits Authorized [id number] Closed Specialty Services Required 09/11/2009 1 1 Question Answer Reason for Request: pt needs ongoing visits to tx hypoglycemia, constipation. pt also has low body weight. please eval for ongoing consults Reason for Visit * Reason Comments Abdominal Pain x 6 months, frequenc y of urination, no pain Follow-up Encounter Details Date Type Department Care Team (Late st Contact Info) Description 09/11/2009 8:30 EDT Office Visit [facility] Adult Primary Care - [address] [address] Destinee Montague PA-C [address] [place] [phone] Constipation (Primary Dx); Hypoglycemia; Frequent urination; Frequent urination at night Social History Tobacco Use Types Packs/Day Years [...] Sign Reading Time Taken Comments Blood Pressure 100/70 09/11/2009 0830 EDT Pulse 60 09/11/2009 0830 EDT Temperature - - Respiratory Rate 18 09/11/2009 0830 EDT Oxygen Saturation - - Inhaled Oxygen Concentration - - Weight 53.1 kg (117 lb) 09/11/2009 0830 EDT Height 165.1 cm (5' 5) 09/11/2009 0830 EDT Body Mass Index 19.47 09/11/2009 0830 EDT documented in this encounter Ordered Prescriptions Prescription Sig Dispensed Refills Start Date End Da te tolterodine (DETROL LA) 4 mg ER capsule Take 1 Cap by mouth daily. 30 Cap 2 09/11/2009 11/27/2009 documented in this encounter Progress Notes * Destinee Montague PA-C - 09/11/2009 0837 EDT Images from the original note were not included. Subjective: Patient ID: Teri Toribio is an 19 y.o. female. Chief Complaint Patient presents with ??? Abdominal Pain x 6 months, frequency of urination, no pain ??? Follow-up HPI Comments: Pt is taking bladder control meds, has seen P.T for [employer] work. Pt did also see a urologist but not recently. Pt feels that she is still urinating more often q 2hrs at night. Pt is taking miralax tid and she has a BM in the AM. Pt feels that she has seen urology and she does not know what the plan is. Pt urinates q2hrs. Pt's menses has returned to once a month with the change to a ne w control pill. Abdominal Pain The history is provided by the patient. No high school foreign language teacher was used. This is a chronic problem. The current episode started more than 1 year ago. The pain is associated with other (constipation). The pain is located in the generalized abdominal region. Associated symptoms include constipation and frequency. Pertinent negatives include no diarrhea, no melena, no nausea and no vomiting. chronic constipation Patient Active Problem List Diagnoses Code ??? Contraceptive management V25.9B ??? Constipation by delayed colonic transit 564.01A History reviewed. No pertinent past medical history. Current outpatient prescriptions prior to encounter Medication Sig Dispense Refill ??? oxybutynin (DITROPAN) 5 mg tablet Take 1 Tab by mouth 2 times daily. 30 Tab 2 ??? amitriptyline (ELAVIL) 10 mg tablet Take 1 Tab by mouth at bedtime as needed for Sleep. 30 Tab 0 ??? norgestimate-ethinyl estradiol (ORTHO-CYCLEN) 0.25-35 mg-mcg per tablet Take 1 Tab by mouth daily. 1 Package 11 ??? PEG 3350-Electrolytes (MIRALAX) 17 gram packet Take 17 g by mouth 3 times daily. No Known Allergies Social History Substance Use Topics ??? Tobacco Use: Never ??? Alcohol Use: No Review of Systems Constitutional: Positive for malaise/fatigue. Gastrointestinal: Positive for abdominal pain and constipation. Negative for heartburn, nausea, vomiting, diarrhea, blood in stool and melena. Genitourinary: Positive for frequency. Skin: Negative. - See HPI Objective: BP 100/70 Pulse 60 Resp 18 Ht 1.651 m (5' 5) Wt 53.071 kg (117 lb) LMP 08/13/2009 Physical Exam Constitutional: She is oriented to person, place, and time. She appears well- developed and well-nourished. She appears not diaphoretic. No distress. Neck: Normal range of motion. Cardiovascular: Normal rate, regular rhythm and normal heart sounds. Pulmonary/Chest: Effort normal and breath sounds normal. Abdominal: Soft. Bowel sounds are normal. She exhibits no distension and no mass. Tenderness is present. She has no rebound and no guarding. Neurological: She is alert and oriented to person, place, and time. Skin: Skin is warm and dry. She is not diaphoretic. Assessment: Urinary frequency Abdominal pain/constipation Plan: Urinary symptoms, try d/c oxybutinin, try detrol LA 4mg instead Refer to urology Abdominal pain - pt working with P.T. As well - urinary symptoms Referral to nutrition - mother requesting ongoing tx as pt did not get sufficient information with just one consult visit. Mother insisting. Increased menses resolved with new control pill. Hypoglycemia - tx with diet. Low wt - pt at 19.47 BMI. , refer to retail shift supervisor documented in this encounter Plan of Treatment Upcoming Encounters Date Type Department Care Team (Late st Contact Info) Description 10/22/2023 13:25 EDT Hospital Encounter [facility] OR [address] [place] [address] [phone] Walker Pride MD [address] [place] [address] [phone] 10/22/2023 13:25 EDT - 10/22/2023 17:00 EDT Surgery [facility] OR [address] [place] [address] [phone] Walker Pride MD [address] [place] [address] [phone] Left L34 decompression, redo left L45 decompression [99097 (CPT??)] 11/22/2023 10:00 EDT Post-op Visit [facility] Neurosurgery - [facility] [address] [place] [address] Madiha Hurtado NP [address] [facility], [facility], [address] [place] [phone] Scheduled Procedures Name Priority Associated Diagnoses Date/Ti me LAMINECTOMY, SPINE, LUMBAR, 1 LEVEL, WITH FORAMINOTOMY OR FACETECTOMY Lumbar radiculopathy 10/22/2023 13:25 EDT LAMINECTOMY, SPINE, WITH FACETECTOMY AND FORAMINOTOMY, ADDITIONAL LEVEL FOLLOWING INITIAL LEVEL Lumbar radiculopathy 10/22/2023 13:25 EDT Scheduled Referrals Name Type Priority Associated Diagnoses Orde r Schedule AMB CONSULT NUTRITION Outpatient Referral Routine Hypoglycemia Ordered: 09/11/2009 AMB CONSULT UROLOGY Outpatient Referral Routine Frequent urination Frequent urination at night Ordered: 09/11/2009 documented as of this encounter Visit Diagnoses Diagnosis Constipation- Primary Unspecified constipation Hypoglycemia Hypoglycemia, unspecified Frequent urination Urinary frequency Frequent urination at night Nocturia Lumbar radiculopathy Thoracic or lumbosacral neuritis or radiculitis, unspecified documented in this encounter Discontinued Medications Medication Sig Discontinue Reason Start Date End Da te oxybutynin (DITROPAN) 5 mg tablet Take 1 Tab by mouth 2 times daily. Duplicate Therapy 08/20/2009 09/11/2009 documented as of this encounter Care Teams Brush Hand Relationship Specialty Start Date End Date Miri Vilchis MD PhD [address] [place] [phone] PCP - General 08/20/08 11/21/18 documented as of this encounter
--- OUTSIDE RECORDS SUMMARY | 2023-10-19 15:37 | XMS_ITS | Encounter Summary ---
Author Organization [facility] Address [address] [place] [address] Care Team Providers Care Voice Over Announcer Name Role Phone Nataly Vilchis MD PhD Primary Care Provider Reason for Visit * Reason Comments Constipation has not had nl Bm fo r weeks per pt. home tx not working, referred here by pmd. ROSINA AP, luis fernando n/v/f. Encounter Details Date Type Department Care Team (Late st Contact Info) Description 04/18/2009 9:38 EST - 04/18/2009 19:21 EST Emergency [facility] Emergency Department - [address] [phone] John Soto, PA-C [address] [phone] Ubaldo Guevara MD [address] [facility], Level 1 [place] [address] Ruchi Nuñez PA [address] [place] [phone] Emergency, MD Jamie Constipation; Abdominal pain Discharge Disposition: Home or Self [...] Sign Reading Time Taken Comments Blood Pressure 89/53 04/18/2009 1812 EST Pulse 42 04/18/2009 1812 EST Temperature 36.5 ??C (97.7 ??F) 04/18/2009 0944 EST Respiratory Rate 17 04/18/2009 1812 EST Oxygen Saturation 100% 04/18/2009 1812 EST Inhaled Oxygen Concentration - - Weight - - Height - - Body Mass Index - - documented in this encounter Discharge Instructions * Discharge Instructions* Ruchi Chiang - 04/18/2009 19:08 EST Drink plenty of fluids. Follow up with GI. Return to the Emergency Department (ED) if your condition worsens, does not improve as expected, orfor any other concerns. Specifically return if you have new or uncontrolled pain, worsening fever, difficulty breathing, vomiting, or are unable to drink fluids. * Attachments The following attachments cannot be sent through Care Everywhere. * CONSTIPATION IN ADULTS: AFTER YOUR VISIT (SAMOAN) documented in this encounter Medications at Time [...] or Self Care documented in this encounter ED Notes * Ubaldo Guevara IV, MD - 04/29/2009 0235 EST DOS: 04/18/2009 Chief Complaint Patient presents with ??? Constipation has not had nl Bm for weeks per pt. home tx not working, referred here by pmd. RLQ AP, denies n/v/f. Patient is a 18 y.o. female presenting with constipation. Constipation Review of Systems Gastrointestinal: Positive for constipation. No past medical history on file. No past surgical history on file. No Known Allergies History Substance Use Topics ??? Tobacco Use: Never ??? Alcohol Use: No No family history on file. BP 89/53 Pulse 42 Temp(Src) 36.5 ??C (97.7 ??F) (Tympanic) Resp 17 SpO2 100% Physical Exam Radiology orders: ACUTE ABDOMEN SERIES ACUTE ABDOMEN SERIES Final result not shown here.: Xrays visualized by myself and interpreted concurrently with radiologist. Please see radiology reading for further details. R sided constipation. Patient had laboratory tests ordered which were reviewed and interpreted by myself. Please see laboratory results for detailed information. Nl TSH. Procedures ED Course: I performed a history and exam of this patient and discussed the case with the PA. I reviewed this individual's note and I concur with the documented findings, performed procedures, and plan of care. Please see primary note by ROM Soto. Nursing notes reviewed and vital signs reviewed. Pt presents with constipation, abdominal pain. REcent imaging studies unremarkable. Labs wnl. Bradycardic. Feel that in face of neg TSH that pt's sx are functional abdominal pain and constipation. D/c to f/u GI if sx not resolved. Discharge Prescriptions New Prescriptions No Discharge Prescriptions for this patient MDM Encounter Diagnoses Code Name Primary? Qualifier ??? 564.00A Constipation ??? 789.00AP Abdominal pain PCP: NATALY VILCHIS MD 04/29/2009 2:38 AM * Otto Rose RN - 04/18/2009 1812 EST 2 BM's, good size per pt Feeling better * Otto Rose RN - 04/18/2009 1717 EST Blood drawn via butterfly needle per protocol, tiger and purple tube(s) sent to lab per order. * Zeke Mejia - 04/18/2009 1617 EST Patient states that her nausea has subsided after receiving 4mg of zofran. * Otto Rose RN - 04/18/2009 1527 EST Pt is now on continuous EKG,pulse oximetry and NIBP monitoring. Alarms are on, and alarm parameters were adjusted according to initial set of VS obtained upon initiation of monitoring. * Zeke Mejia - 04/18/2009 1523 EST Bradycardia noted on pulse oximeter. Confirmed with ekg lead 2. Ling Soto was notified and came to see patient. Patient appears tired at this time with pale color. * John Soto - 04/18/2009 1432 EST DOS: 04/18/2009 Chief Complaint Patient presents with ??? Constipation has not had nl Bm for weeks per pt. home tx not working, referred here by pmd. RLAnny AP, denies n/v/f. Patient is a 18 y.o. female presenting with constipation. The history is provided by the patient. Constipation This is a new problem. The current episode started more than 1 week ago. Associated symptoms include abdominal pain. Pertinent negatives include no dysuria. There is fiber in the patient's diet. She exercises regularly. There has not been adequate water intake. The treatment provided no relief. Pt referred back here for constipation which has been going on for several days now, states has failed Fleet enemas and Miralax at home Review of Systems Constitutional: Negative for fever and chills. HENT: Negative for neck stiffness. Eyes: Negative for visual disturbance. Respiratory: Negative for shortness of breath. Cardiovascular: Negative for chest pain. Gastrointestinal: Positive for abdominal pain and constipation. Negative for nausea, diarrhea and abdominal distention. Genitourinary: Negative for dysuria. Musculoskeletal: Negative for back pain. Skin: Negative for rash. Neurological: Negative for headaches. Psychiatric/Behavioral: Negative for confusion. All other systems reviewed and are negative. No past medical history on file. No past surgical history on file. No Known Allergies History Substance Use Topics ??? Tobacco Use: Never ??? Alcohol Use: No No family history on file. BP 89/53 Pulse 42 Temp(Src) 36.5 ??C (97.7 ??F) (Tympanic) Resp 17 SpO2 100% Physical Exam Nursing note and vitals reviewed. Constitutional: She appears well-developed and well-nourished. HENT: Head: Normocephalic and atraumatic. Eyes: Pupils are equal, round, and reactive to light. Neck: Normal range of motion. Neck supple. No tracheal deviation present. Cardiovascular: Normal rate, regular rhythm and normal heart sounds. Pulmonary/Chest: Breath sounds normal. No respiratory distress. She has no wheezes. Abdominal: Soft. Bowel sounds are normal. She exhibits no distension. Tenderness (mild over right abdomen) is present. She has no rebound. Neurological: She is alert. She has normal strength. No sensory deficit. Skin: No rash noted. Psychiatric: She has a normal mood and affect. Radiology orders: ACUTE ABDOMEN SERIES ACUTE ABDOMEN SERIES Final result not shown here.: Procedures ED Course: Pt here with persistent constipation not responding to Fleets at home. Right abdomen slight tender,AAS shows abundant stool in mainly the right colon, no SBO. Manual disimpaction attempted showed nostool in rectal vault. Seen here on 04/07, at that time had CT abd/pelvis which was normal, so I am reassured that there is no structural issue in right colon causing this issue. Pt currently drinkingGoLytely solution for BM Discharge Prescriptions New Prescriptions No Discharge Prescriptions for this patient MDM Number of Diagnoses and Management Options General comments: 4 Amount and/or Complexity of Data Reviewed Tests in the radiology section of CPT??: ordered and reviewed Discussion of test results with the performing providers: yes Decide to obtain previous medical records or to obtain history from someone other than the patient:no Obtain history from someone other than the patient: no Review and summarize past medical records: no Discuss the patient with other providers: yes Independent visualization of images, tracings, or specimens: no Encounter Diagnoses Code Name Primary? Qualifier ??? 564.00A Constipation PCP: NATALY VILCHIS MD 04/21/2009 1:46 PM ED Attending Available for Supervision: Tashi Jackson * Marian Vaughan, RN - 04/18/2009 1133 EST Disimpaction enema Given small results * Farshad Baptiste - 04/18/2009 0939 EST TCALL: TERI LANGE [birth year] GIVEN HILARY REFERS PT TO ED FOR EVAL. CC: CONSTIPATION. FAILED MIRALAX, DUCOLAX, SEVERAL ENEMAS. +PAIN, CAN'T SLEEP. WILL FAX NOTES TO Shellie ReeceGMD) documented in this encounter Miscellaneous Notes * Scanned Note-Null - Inpatient, Physician - 04/21/2009 0918 EST documented in this encounter Plan of Treatment Upcoming Encounters Date Type Department Care Team (Late st Contact Info) Description 10/22/2023 13:25 EDT Hospital Encounter [facility] OR [address] [place] [phone] Walker Pride MD [address] [place] [phone] 10/22/2023 13:25 EDT - 10/22/2023 17:00 EDT Surgery [facility] OR [address] [place] [address] [phone] Walker Pride MD [address] [place] [phone] Left L34 decompression, redo left L45 decompression [03633 (CPT??)] 11/22/2023 10:00 EDT Post-op Visit [facility] Neurosurgery - [facility] [address] [place], [place] [phone] Madiha Hurtado NP 111 [facility], [facility], [address] [place] [address] Scheduled Procedures Name Priority Associated Diagnoses Date/Ti me LAMINECTOMY, SPINE, LUMBAR, 1 LEVEL, WITH FORAMINOTOMY OR FACETECTOMY Lumbar radiculopathy 10/22/2023 13:25 EDT LAMINECTOMY, SPINE, WITH FACETECTOMY AND FORAMINOTOMY, ADDITIONAL LEVEL FOLLOWING INITIAL LEVEL Lumbar radiculopathy 10/22/2023 13:25 EDT documented as of this encounter Procedures Procedure Name Priority Date/Time Associated Diagnosis Comments COMPLETE BLOOD COUNT AND DIFFERENTIAL STAT 04/18/2009 17:13 EST TSH STAT 04/18/2009 17:06 EST T4 FREE Routine 04/18/2009 17:06 EST MAGNESIUM STAT 04/18/2009 17:06 EST COMPLETE BLOOD COUNT AND DIFFERENTIAL STAT 04/18/2009 15:38 EST BUN STAT 04/18/2009 15:38 EST CREATININE STAT 04/18/2009 15:38 EST ELECTROLYTES STAT 04/18/2009 15:38 EST ACUTE ABDOMEN SERIES STAT 04/18/2009 10:44 EST documented in this encounter Results * (ABNORMAL) HEMAGRAM AND DIFFERENTIAL (04/18/2009 17:13 EST) WBC 3.70(L) 4.0 - 12.4 K/cmm [facility] RBC 4.09 3.86 - 5.04 M/cmm [facility] Hemoglobin 14.0 11.6 - 15.2 gm/dl [facility] HCT 40.1 34.9 - 44.4 % [facility] MCV 98 81 - 98 fl [facility] MCH 34.2(H) 26.7 - 33.3 pg [facility] MCHC 34.9 32.1 - 35.9 gm/dl [facility] PLT 174 141 - 320 K/cmm [facility] RDW-CV 13.2 11.7 - 14.6 % [facility] Neutrophils 51.0 45.5 - 79.7 % [facility] Lymphocytes 42.0 15.0 - 46.8 % [facility] Monocytes 7.0 1.8 - 12.0 % [facility] ABS Neutrophils 1.89(L) 2.20 - 8.85 K/cmm [facility] ABS Lymphs 1.55 1.09 - 3.30 K/cmm [facility] ABS Monocytes 0.26 0.1 - 0.8 K/cmm [facility] RBC Morphology Normal [facility] Type of Diff: Manual [facility] Blood specimen (specimen) 04/18/2009 17:13 EST 04/18/2009 17:20 EST Ubaldo Guevara MD PACKAGES & D NA PROBE ORDERABLES Performing Organization Address [facility] Co de Phone Number [facility] [address] [place] [address] * MAGNESIUM (04/18/2009 17:06 EST) Magnesium 2.0 1.7 - 2.8 mg/dl [facility] Comment: Results may be affected due to hemolysis. Slight hemolysis Blood specimen (specimen) 04/18/2009 17:06 EST 04/18/2009 17:19 EST Ubaldo Guevara MD CHEMISTRY & BLOOD GAS ORDERABLES Performing Organization Address [facility] Co de Phone Number [facility] [address] [place] [address] * T4 FREE (04/18/2009 17:06 EST) Free T4 0.8 0.8 - 1.8 ng/dL [facility] Blood specimen (specimen) 04/18/2009 17:06 EST 04/18/2009 17:19 EST Ubaldo Guevara MD CHEMISTRY & BLOOD GAS ORDERABLES Performing Organization Address [facility] Phone Number [facility] [address] [place] [address] * TSH (04/18/2009 17:06 EST) Pathologist [facility] TSH 1.05 0.35 - 5.00 uIU/ml [facility] Blood specimen (specimen) 04/18/2009 17:06 EST 04/18/2009 17:19 EST Ubaldo Guevara MD CHEMISTRY & BLOOD GAS ORDERABLES Performing Organization Address [facility] Phone Number [facility] [address] [place] [address] * CREATININE (04/18/2009 15:38 EST) [facility] Creatinine 0.80 0.7 - 1.5 mg/dl [facility] GFR, Calculated >60 ml/min/1.7 3m2 [facility] Blood specimen (specimen) 04/18/2009 15:38 EST 04/18/2009 15:44 EST John Soto PA-C CHEMISTRY & BLOOD G ORDERABLES Performing Organization Address [facility] Phone Number [facility] [address] [place] [address] * (ABNORMAL) BUN (04/18/2009 15:38 EST) Pathologist [facility] BUN 7(L) 10 - 26 mg/dl [facility] Blood specimen (specimen) 04/18/2009 15:38 EST 04/18/2009 15:44 EST John A Brittany PA-C CHEMISTRY & BLOOD G ORDERABLES Performing Organization Address [facility] de Phone Number [facility] [address] [place] [address] * ELECTROLYTES (04/18/2009 15:38 EST) Sodium 140 136 - 145 mEq/L [facility] Potassium 3.8 3.5 - 5.0 mEq/L [facility] Chloride 107 96 - 110 mEq/L [facility] CO2 27 24 - 32 mEq/L [facility] Blood specimen (specimen) 04/18/2009 15:38 EST 04/18/2009 15:44 EST John A Brittany PA-C CHEMISTRY & BLOOD G ORDERABLES Performing Organization Address [facility] Phone Number [facility] [address] [place] [address] * HEMAGRAM AND DIFFERENTIAL (04/18/2009 15:38 EST) WBC Clotted 4.0 - 12.4 K/cmm [facility] RBC Clotted 3.86 - 5.04 M/cmm [facility] Hemoglobin Clotted 11.6 - 15.2 gm/dl [facility] HCT Clotted 34.9 - 44.4 % [facility] MCV Clotted 81 - 98 fl [facility] MCH Clotted 26.7 - 33.3 pg [facility] MCHC Clotted 32.1 - 35.9 gm/dl [facility] PLT Clotted 141 - 320 K/cmm [facility] RDW-CV Clotted 11.7 - 14.6 % [facility] Neutrophils Clotted 45.5 - 79.7 % [facility] Blood specimen (specimen) 04/18/2009 15:38 EST 04/18/2009 15:44 EST John A Brittany PA-C PACKAGES & DNA PROB E ORDERABLES Performing Organization Address [facility] Co de Phone Number [facility] [address] [place] [address] * ACUTE ABDOMEN SERIES (04/18/2009 10:44 EST) Anatomical Region Laterality Modality Other 04/18/2009 10:4 4 EST 04/18/2009 10:55 EST Narrative 04/18/2009 10:55 EST History/Comments: ??CONSTIPATION x2 weeks, abd pain ACUTE ABDOMEN SERIES ?? Findings: ?? The lungs are clear. There is a large amount stool in the right colon. Air is seen in the transverse colon. The small bowel is nondilated. There is no evidence of free air. No abnormal calcifications are identified. Impressions: Large amount of stool in the right colon, but the remainder of the colon does not appear to have a significant amount of stool. Procedure Note 04/18/2009 History/Comments: CONSTIPATION x2 weeks, abd pain ACUTE ABDOMEN SERIES Findings: The lungs are clear. There is a large amount stool in the right colon. Air is seen in the transverse colon. The small bowel is nondilated. There is no evidence of free air. No abnormal calcifications are identified. Impressions: Large amount of stool in the right colon, but the remainder of the colon does not appear to have a significant amount of stool. John [facility]G ORDERABLES documented in this encounter Visit Diagnoses Diagnosis Constipation Unspecified constipation Abdominal pain Abdominal pain, unspecified site Lumbar radiculopathy Thoracic or lumbosacral neuritis or radiculitis, unspecified documented in this encounter Administered Medications Inactive Administered Medications - up to 3 most recent administrations Medication Order MAR Action Action Date Dose Rate Site disimpaction enema 1 Bottle 1 Bottle, rectal, NOW X1, 1 dose, On Paula 04/18/09 at 1130, STAT Given 04/18/2009 11:30 EST 1 Bottle ondansetron (PF) (ZOFRAN) 4 mg/2 mL injection 1 dose, Starting on Paula 04/18/09 at 1544, Until Paula 04/18/09 at 1550 Given 04/18/2009 15:50 EST 4 mg PEG 3350-Electrolytes (GoLYTELY) oral solution 1 L 1 L, oral, EVERY HOUR, 4 doses, First dose on Paula 2/4/10 at 1115, Last dose on Paula 10 at 1400, STAT Given 04/18/2009 15:25 EST 1 L Given 04/18/2009 14:20 EST 1 L Given 04/18/2009 12:42 EST 1 L sodium chloride 0.9 % 1,000 mL BOLUS 1,000 mL, intravenous, Once (Without Time Specified), 1 dose, Starting on Paula 210 at 1215, Until Paula 210 at 1215, STAT Given 04/18/2009 12:15 EST 1,000 mL documented in this encounter Active and Recently Administered Medications Times are shown in EST. Scheduled Medication Order 04/16/2009 04/17/2009 04/18/2009 disimpaction enema 1 Bottle (COMPLETED) 1 Bottle, rectal, NOW X1, 1 dose, On Paula 04/18/09 at 1130, STAT 1130 (Given - Provid er: Marian Vaughan RN) PEG 3350-Electrolytes (GoLYTELY) oral solution 1 L (COMPLETED) 1 L, oral, EVERY HOUR, 4 doses, First dose on Paula 10 at 1115, Last dose on Paula 10 at 1400, STAT 1130 (Given - Provid er: Marian Vaughan RN)1242 (Given - Provider: Otto Rose RN - Comment: given at time served by pharmacy)1420 (Given - Provider: Otto Rose RN - Comment: medication was given at time served by pharmacy. Multiple phone calls and PRISM messages were sent rto pharmacy i order to get medicibne served in a timely matter)1525 (Given - Provider: Otto Rose RN - Comment: there was a delay in getting medications delivered from pharmacy) sodium chloride 0.9 % 1,000 mL BOLUS (COMPLETED) 1,000 mL, intravenous, Once (Without Time Specified), 1 dose, Starting on Paula 210 at 1215, Until Paula 210 at 1215, STAT 1215 (Given - Provid er: Otto Rose RN) No Frequency Medication Order 04/16/2009 04/17/2009 04/18/2009 ondansetron (PF) (ZOFRAN) 4 mg/2 mL injection (COMPLETED) 1 dose, Starting on Paula 2/4/10 at 1544, Until Paula 04/18/09 at 1550 1550 (Given - Provid er: Otto Rose RN) documented in this encounter Orders Medications Ordered That Sameer ht Not Have Been Administered Count Last Ordered Date First Ordered Date sodium chloride 0.9 % 2,000 mL BOLUS 1 06/2009 documented in this encounter Care Teams Voice Over Announcer Relationship Specialty Start Date End Date Nataly Vilchis MD PhD [address] [place] [phone] PCP - General 08/20/08 11/21/18 documented as of this encounter
--- OUTSIDE RECORDS SUMMARY | 2023-10-19 15:37 | XMS_ITS | Encounter Summary ---
Author Organization [facility] Address [address] [place] [address] Care Team Providers Care Welding Supervisor Name Role Phone Miri Vilchis MD PhD Primary Care Provider Encounter Details Date Type Department Care Team (Latest Contact Info) Description 07/02/2009 9:58 EDT - 07/02/2009 9:[address] [facility] - Other [address] [place], [place] [address] Destinee Montague PA-C [address] [place] [phone] Discharge Disposition: Home or Self Care [...] Info) Description 10/22/2023 13:25 EDT Hospital Encounter [facility] OR [address] [place] [address] [phone] Walker Pride MD [address] [place] [phone] 10/22/2023 13:25 EDT - 10/22/2023 17:00 EDT Surgery [facility] OR [address] [place] [address] [phone] Walker Pride MD [address] [place] [phone] Left L34 decompression, redo left L45 decompression [28253 (CPT??)] 11/22/2023 10:00 EDT Post-op Visit [facility] Neurosurgery - [address] [phone] Madiha Hurtado NP [address] [place] [phone] Scheduled Procedures Name Priority Associated Diagnoses Date/Ti me LAMINECTOMY, SPINE, LUMBAR, 1 LEVEL, WITH FORAMINOTOMY OR FACETECTOMY Lumbar radiculopathy 10/22/2023 13:25 EDT LAMINECTOMY, SPINE, WITH FACETECTOMY AND FORAMINOTOMY, ADDITIONAL LEVEL FOLLOWING INITIAL LEVEL Lumbar radiculopathy 10/22/2023 13:25 EDT documented as of this encounter Visit Diagnoses Not on filedocumented in this encounter Care Teams Welding Supervisor Relationship Specialty Start Date End Date Miri Vilchis MD PhD [address] [place] [phone] PCP - General 08/20/08 11/21/18 documented as of this encounter
--- OUTSIDE RECORDS SUMMARY | 2023-10-19 15:37 | XMS_ITS | Encounter Summary ---
Author Organization [facility] Address [address] [place] [address] Care Team Providers Care Air Export Operations Agent Name Role Phone Unavailable Primary Care Provider Unavailabl e Encounter Details Date Type Department Care Team (Latest Contact Info) Description 08/15/2007 9:04 EDT - 08/15/2007 11:59 EDT Hospital Encounter [facility] [address] [place], [place] [phone] Destinee Holman, AICHA [address] [place] [address] Discharge Disposition: Auto Discharge Social History Tobacco Use Types Packs/Day Years Used Date Smoking Tobacco: Never Assessed Sex and Gender Information Value Date Recorded Sex Assigned at Female 10/08/2022 13:26 EDT Gender Identity Female 07/29/2021 16:35 EDT Sexual Orientation Straight 10/08/2022 13 :26 EDT documented as of this encounter Discharge Disposition Disposition Code Departure Means Destination Auto Discharge documented in this encounter Plan of Treatment Upcoming Encounters Date Type Department Care Team (Late st Contact Info) Description 10/22/2023 13:25 EDT Hospital Encounter [facility] OR [address] [place], [place] [phone] Walker Pride MD [address] [facility], [address] [place] [phone] 10/22/2023 13:25 EDT - 10/22/2023 17:00 EDT Surgery [facility] OR [address] [place] [address] [phone] Walker Pride MD [address] [place] [address], [facility], [address] [place] [phone] Left L34 decompression, redo left L45 decompression [47883 (CPT??)] 11/22/2023 10:00 EDT Post-op Visit [facility] Neurosurgery - [address] [phone] Madiha Hurtado NP [address] [place] [address], [facility], [address] [place] [phone] Scheduled Procedures Name Priority Associated Diagnoses Date/Ti me LAMINECTOMY, SPINE, LUMBAR, 1 LEVEL, WITH FORAMINOTOMY OR FACETECTOMY Lumbar radiculopathy 10/22/2023 13:25 EDT LAMINECTOMY, SPINE, WITH FACETECTOMY AND FORAMINOTOMY, ADDITIONAL LEVEL FOLLOWING INITIAL LEVEL Lumbar radiculopathy 10/22/2023 13:25 EDT documented as of this encounter Visit Diagnoses Not on filedocumented in this encounter
--- OUTSIDE RECORDS SUMMARY | 2023-10-19 15:37 | XMS_ITS | Encounter Summary ---
Author Organization [facility] Address [address] [place] [address] Care Team Providers Care Compressor Engineer Name Role Phone Miri Vilchis MD PhD Primary Care Provider Reason for Visit * Reason Onset Date Comments Medication Problem 07/30/2009 Encounter Details Date Type Department Care Team (Late st Contact Info) Description 07/30/2009 Refill [facility] Primary Care - [address] [address] Miri Vilchis MD PhD [address] [place] [phone] Medication Problem Social History Tobacco Use Types Packs/Day Years [...] Dispensed Refills Start Date End Da te amitriptyline (ELAVIL) 10 mg tablet Take 1 Tab by mouth at bedtime as needed for Sleep. 30 Tab 0 07/31/2009 11/27/2009 documented in this encounter Miscellaneous Notes * Telephone Encounter - Patt Duong RN - 08/02/2009 1447 EDT The patient indicates understanding of these issues and agrees with the plan. * Telephone Encounter - Destinee Montague PA-C - 07/31/2009 1723 EDT I would like to have pt try amitriptylene tab 10mg qHS for 2 weeks. This works differently and can be much more sedating. She should at lease allow 8+hours between taking the med and waking in the AM. eprescribed to pharmacy. * Telephone Encounter - Pinky Rahman - 07/31/2009 0839 EDT Chart out to Destinee * Telephone Encounter - Destinee Montague PA-C - 07/30/2009 1816 EDT May I please have her chart, I would like to consider a low dose amitriptylene but want to see if she has been prescribed this in the past. She has already tried ambien without success. * Telephone Encounter - Patt Willis - 07/30/2009 1028 EDT PRESCRIBED TRAZADONE 50 MG, 2 QHS, NOT HELPING, TOLD TO CALL BACK IF MED NOT HELPING WITH SLEEP. documented in this encounter Plan of Treatment Upcoming Encounters Date Type Department Care Team (Late st Contact Info) Description 10/22/2023 13:25 EDT Hospital Encounter [facility] [place] OR [address] [place] [address] [phone] Walker Pride MD [address] [place] [address], [facility] [address] [place] [phone] 10/22/2023 13:25 EDT - 10/22/2023 17:00 EDT Surgery [facility] OR [address] [place] [address] [phone] Walker Pride MD [address] [place] [address], [facility] [address] [place] [phone] Left L34 decompression, redo left L45 decompression [01294 (CPT??)] 11/22/2023 10:00 EDT Post-op Visit [facility] Neurosurgery - [address] [phone] Madiha Hurtado NP [address] [place] [address], [facility] [address] [place] [phone] Scheduled Procedures Name Priority Associated [...] Discontinue Reason Start Date End Da te trazodone (DESYREL) 50 mg tablet Take by mouth at bedtime. 1-2 tabs po qHS prn Duplicate Therapy 07/17/2009 07/31/2009 documented as of this encounter Care Teams Compressor Engineer Relationship Specialty Start Date End Date Miri Vilchis MD PhD [address] [place] [phone] PCP - General 08/20/08 11/21/18 documented as of this encounter
--- OUTSIDE RECORDS SUMMARY | 2023-10-19 15:37 | XMS_ITS | Encounter Summary ---
Author Organization [facility] Address [address] [place] [address] Care Team Providers Care Warp Picker Name Role Phone Miri Vilchis MD PhD Primary Care Provider Encounter Details Date Type Department Care Team (Latest Contact Info) Description 07/01/2009 11:41 EDT - 07/01/2009 23:59 EDT Hospital Encounter [address] [place] [address] Destinee Montague PA-C [address] [place] [phone] Irregular menses Discharge Disposition: Home or Self Care Social [...] or Self Custodial documented in this encounter Plan of Treatment Upcoming Encounters Date Type Department Care Team (Late st Contact Info) Description 10/22/2023 13:25 EDT Hospital Encounter [facility] OR [address] [place] [address] [phone] Walker Pride MD [address] [place] [phone] 10/22/2023 13:25 EDT - 10/22/2023 17:00 EDT Surgery [facility] OR [address] [place] [address] [phone] Walker Pride MD [address] [place] [phone] Left L34 decompression, redo left L45 decompression [43598 (CPT??)] 11/22/2023 10:00 EDT Post-op Visit [facility] Neurosurgery - [address] [phone] Madiha Hurtado NP [address] [place] [phone] Scheduled Procedures Name Priority Associated Diagnoses Date/Ti me LAMINECTOMY, SPINE, LUMBAR, 1 LEVEL, WITH FORAMINOTOMY OR FACETECTOMY Lumbar radiculopathy 10/22/2023 13:25 EDT LAMINECTOMY, SPINE, WITH FACETECTOMY AND FORAMINOTOMY, ADDITIONAL LEVEL FOLLOWING INITIAL LEVEL Lumbar radiculopathy 10/22/2023 13:25 EDT documented as of this encounter Procedures Procedure Name Priority Date/Time Associated Diagnosis Comments VITAMIN D (25,OH) Routine 07/01/2009 11: 46 EDT PROLACTIN Routine 07/01/2009 11:46 EDT Irregular menses DHEA SULFATE Routine 07/01/2009 11:46 EDT Irregular menses COMPLETE BLOOD COUNT AND DIFFERENTIAL Routine 07/01/2009 11:46 EDT Irregular menses QUANT BETA HCG, Routine 07/01/2009 11:46 EDT Irregular menses TSH Routine 07/01/2009 11:46 EDT Irregular menses LH Routine 07/01/2009 11:46 EDT Irregular menses FSH Routine 07/01/2009 11:46 EDT Irregular menses VITAMIN B12 Routine 07/01/2009 11:46 EDT COMPREHENSIVE METABOLIC PANEL (CMP) Routine 07/01/2009 11:46 EDT Irregular menses documented in this encounter Results * VITAMIN D (25,OH) (07/01/2009 11:46 EDT) 25OH Vitamin D Tot 34.0 ng/ml [facility] Comment: Reference Range: <10 ng/ml: Deficient 10-30 ng/ml: Insufficient 30-100 ng/ml: Sufficient >100 ng/ml: Toxic 07/01/2009 11:4 6 EDT 07/01/2009 11:48 EDT Destinee Montague PA-C CHEMISTRY & BLOO D GAS ORDERABLES [facility] [address] [place] [address] * VITAMIN B12 (07/01/2009 11:46 EDT) Vitamin B-12 414 211 - 911 pg/ml [facility] 07/01/2009 11:4 6 EDT 07/01/2009 11:48 EDT Destinee Montague PA-C CHEMISTRY & BLOO D GAS ORDERABLES Performing Organization Address [facility] de Phone Number [facility] [address] [place] [address] * PROLACTIN (07/01/2009 11:46 EDT) Prolactin 6.0 ng/ml [facility] Comment: Non-: 2.8-29.2 : 9.7-208.5 Post Menopausal: 1.8-20.3 Blood specimen (specimen) 07/01/2009 11:46 EDT 07/01/2009 11:49 EDT Destinee BRADSHAWC CHEMISTRY & BLOO D GAS ORDERABLES Performing Organization Address [facility] de Phone Number [facility] [address] [place] [address] * HCG (07/01/2009 11:46 EDT) HCG <4 <4 mIU/ml [facility] Comment: Reference Range: Positive = >10 Borderline = 4-10 recommend repeat. Negative = <4 Blood specimen (specimen) 07/01/2009 11:46 EDT 07/01/2009 11:49 EDT Destinee Montague PA-C CHEMISTRY & BLOO D GAS ORDERABLES Performing Organization Address [facility] Co de Phone Number [facility] [address] [place] [address] * LH (07/01/2009 11:46 EDT) LH <0.1 mIU/ml [facility] Comment: Follicular: 1-18 Mid-Cycle Peak: 15-80 Luteal: 0.5-18 Postmenopausal: 12-55 Blood specimen (specimen) 07/01/2009 11:46 EDT 07/01/2009 11:49 EDT Destinee Montague PA-C CHEMISTRY & BLOO D GAS ORDERABLES Performing Organization Address City/[facility] Co de Phone Number [facility] [address] [place] [address] * DHEA SULFATE (07/01/2009 11:46 EDT) DHEA Sulfate 58 44 - 332 ug/dl [facility] Blood specimen (specimen) 07/01/2009 11:46 EDT 07/01/2009 11:49 EDT Destinee Montague PA-C CHEMISTRY & BLOO D GAS ORDERABLES Performing Organization Address [facility] de Phone Number [facility] [address] [place] [address] * FSH (07/01/2009 11:46 EDT) FSH <0.3 mIU/ml [facility] Comment: Follicular: 2-11 Mid-Cycle Peak: 3.4-35 Luteal: 1-9 Postmenopausal: 25-120 Blood specimen (specimen) 07/01/2009 11:46 EDT 07/01/2009 11:48 EDT Destinee Montague PA-C CHEMISTRY & BLOO D GAS ORDERABLES Performing Organization Address [facility] Co de Phone Number [facility] [address] [place] [address] * TSH (07/01/2009 11:46 EDT) TSH 1.08 0.35 - 5.00 uIU/ml [facility] Blood specimen (specimen) 07/01/2009 11:46 EDT 07/01/2009 11:48 EDT Destinee Montague PA-C CHEMISTRY & BLOO D GAS ORDERABLES Performing Organization Address [facility] Co de Phone Number [facility] [address] [place] [address] * (ABNORMAL) HEMAGRAM AND DIFFERENTIAL (07/01/2009 11:46 EDT) WBC 4.14 4.0 - 12.4 K/cmm [facility] RBC 3.65(L) 3.86 - 5.04 M/cmm [facility] Hemoglobin 13.0 11.6 - 15.2 gm/dl [facility] HCT 36.9 34.9 - 44.4 % [facility] MCV 101(H) 81 - 98 fl [facility] MCH 35.5(H) 26.7 - 33.3 pg [facility] MCHC 35.1 32.1 - 35.9 gm/dl [facility] PLT 135(L) 141 - 320 K/cmm [facility] RDW-CV 12.7 11.7 - 14.6 % [facility] % Neutrophils 56.7 45.5 - 79.7 % [facility] % Lymphocytes 34.0 15.0 - 46.8 % [facility] % Monocytes 5.2 1.8 - 12.0 % [facility] % Eosinophils 3.2 0.6 - 6.9 % [facility] % Basophils 0.9 0.2 - 1.4 % [facility] ABS Neutrophils 2.34 2.20 - 8.85 K/cmm [facility] ABS Lymphs 1.41 1.09 - 3.30 K/cmm [facility] ABS Monocytes 0.22 0.1 - 0.8 K/cmm [facility] ABS Eosinophils 0.13 0.03 - 0.61 K/cmm [facility] ABS Basophils 0.04 0.01 - 0.11 K/cmm [facility] Type of Diff: Automated [facility] Blood specimen (specimen) 07/01/2009 11:46 EDT 07/01/2009 11:48 EDT Destinee Montague PA-C PACKAGES & DNA P ROBE ORDERABLES [facility] [address] [place] [address] * (ABNORMAL) COMPREHENSIVE METABOLIC PANEL (07/01/2009 11:46 EDT) Potassium 4.0 3.5 - 5.0 mEq/L [facility] Sodium 137 136 - 145 mEq/L [facility] Chloride 104 96 - 110 mEq/L [facility] CO2 29 24 - 32 mEq/L [facility] Total Alkaline Phosphatase 41 38 - 126 U/L [facility] Bilirubin, Total <0.5 0.2 - 1.3 mg/dl [facility] AST 25 15 - 46 U/L [facility] ALT 21 9 - 52 U/L [facility] Albumin 3.7 3.4 - 4.9 g/dl [facility] Total Protein 6.6 6.5 - 8.3 g/dl [facility] Creatinine 0.94 0.7 - 1.5 mg/dl [facility] GFR, Calculated >60 ml/min/1. 73m2 [facility] BUN 9(L) 10 - 26 mg/dl [facility] Calcium 9.1 8.5 - 10.5 mg/dl [facility] Calculated Calcium 9.8 8.5 - 10.5 mg/dl [facility] Glucose, Serum 49(LL) 70 - 100 mg/dl [facility] Comment:Sample retested, res ult confirmed Fasting? No Performed at [facility] Blood specimen (specimen) 07/01/2009 11:46 EDT 07/01/2009 11:48 EDT Destinee Montague PA-C CHEMISTRY & BLOO D GAS ORDERABLES [facility] [address] [place] [address] documented in this encounter Visit Diagnoses Diagnosis Irregular menses Irregular menstrual cycle Lumbar radiculopathy Thoracic or lumbosacral neuritis or radiculitis, unspecified documented in this encounter Care Teams Warp Picker Relationship Specialty Start Date End Date Miri Vilchis MD PhD [address] [place] [phone] PCP - General 08/20/08 11/21/18 documented as of this encounter
--- OUTSIDE RECORDS SUMMARY | 2023-10-19 15:37 | XMS_ITS | Encounter Summary ---
Author Organization [facility] Address [address] [place] [address] Care Team Providers Care Manager Adobe Name Role Phone Miri Vilchis MD PhD Primary Care Provider Encounter Details Date Type Department Care Team (Latest Contact Info) Description 04/26/2009 10:10 EST - 04/26/2009 23:59 EST Hospital Encounter [phone] [place] [address] Chay Hunter MD Discharge Disposition: Home or [...] Code Departure Means Destination Home or Self [place] documented in this encounter Plan of Treatment Upcoming Encounters Date Type Department Care Team (Late st Contact Info) Description 10/22/2023 13:25 EDT Hospital Encounter [facility] OR [address] [place] [address] [phone] Walker Pride MD [address] [place] [phone] 10/22/2023 13:25 EDT - 10/22/2023 17:00 EDT Surgery [facility] OR [address] [place] [address] [phone] Walker Pride MD [address] [place] [phone] Left L34 decompression, redo left L45 decompression [[id number] (CPT??)] 11/22/2023 10:00 EDT Post-op Visit [facility] Neurosurgery - [address] [phone] Madiha Hurtado NP [address] [place] [address], [address] [phone] Scheduled Procedures Name Priority Associated Diagnoses Date/Ti me LAMINECTOMY, SPINE, LUMBAR, 1 LEVEL, WITH FORAMINOTOMY OR FACETECTOMY Lumbar radiculopathy 10/22/2023 13:25 EDT LAMINECTOMY, SPINE, WITH FACETECTOMY AND FORAMINOTOMY, ADDITIONAL LEVEL FOLLOWING INITIAL LEVEL Lumbar radiculopathy 10/22/2023 13:25 EDT documented as of this encounter Procedures Procedure Name Priority Date/Time Associated Diagnosis Comments ABDOMEN AP 1 VIEW 04/26/2009 10: 27 EST documented in this encounter Results * ABDOMEN AP 1 VIEW (04/26/2009 10:27 EST) Anatomical Region Laterality Modality Other 04/26/2009 10:2 7 EST 04/26/2009 10:38 EST Narrative 04/26/2009 10:38 EST ABDOMEN AP 1 VIEW ??Apr 26, 2009 10:27:00 AM Clinical History/Comments: Abdominal pain.. . . . Solid stool is noted throughout the colon. There are 24 Sitz markers ??noted in the distribution of the ascending and transverse colon. Procedure Note 04/26/2009 ABDOMEN AP 1 VIEW Apr 26, 2009 10:27:00 AM Clinical History/Comments: Abdominal pain.. . . . Solid stool is noted throughout the colon. There are 24 Sitz markers noted in the distribution of the ascending and transverse colon. Chay Hunter MD IMG DIAGNOSTIC IMAGI NG ORDERABLES documented in this encounter Visit Diagnoses Not on filedocumented in this encounter Care Teams Manager Adobe Relationship Specialty Start Date End Date Miri Vilchis MD PhD [address] [place] [phone] PCP - General 08/20/08 11/21/18 documented as of this encounter
--- OUTSIDE RECORDS SUMMARY | 2023-10-19 15:37 | XMS_ITS | Encounter Summary ---
Author Organization [facility] Address [address] [place] [address] Care Team Providers Care Associate Broker Name Role Phone Miri Vilchis MD PhD Primary Care Provider Encounter Details Date Type Department Care Team (Latest Contact Info) Description 03/11/2009 14:51 EST - 03/11/2009 23:59 EST Hospital Encounter [facility] [address] [place] [address] Destinee Montague PA-C [address] [place] [phone] Discharge Disposition: Home or Self Care Social History Tobacco Use Types Packs/Day Years Used Date Smoking Tobacco: Never Assessed Sex and Gender Information Value Date Recorded Sex Assigned at Female 10/08/2022 13:26 EDT Gender Identity Female 07/29/2021 16:35 EDT Sexual Orientation Straight 10/08/2022 13 :26 EDT documented as of this encounter Discharge Disposition Disposition Code Departure Means Destination Home or Self Fdc documented in this encounter Plan of Treatment Upcoming Encounters Date Type Department Care Team (Late st Contact Info) Description 10/22/2023 13:25 EDT Hospital Encounter [facility] [place] [address] [place], [place] [phone] Walker Pride MD [address] [place] [address], Level [address] [place] [phone] 10/22/2023 13:25 EDT - 10/22/2023 17:00 EDT Surgery [facility] OR [address] [place] [address] [phone] Walker Pride MD [address] [place] [address], [address] [place] [phone] Left L34 decompression, redo left L45 decompression [[id number] (CPT??)] 11/22/2023 10:00 EDT Post-op Visit [facility] Neurosurgery - [address] [phone] Madiha Hurtado NP [address] [place] [address], [address] [place] [phone] Scheduled Procedures Name Priority Associated Diagnoses Date/Ti me LAMINECTOMY, SPINE, LUMBAR, 1 LEVEL, WITH FORAMINOTOMY OR FACETECTOMY Lumbar radiculopathy 10/22/2023 13:25 EDT LAMINECTOMY, SPINE, WITH FACETECTOMY AND FORAMINOTOMY, ADDITIONAL LEVEL FOLLOWING INITIAL LEVEL Lumbar radiculopathy 10/22/2023 13:25 EDT documented as of this encounter Procedures Procedure Name Priority Date/Time Associated Diagnosis Comments URINE CHEMICAL (DIP) & SEDIMENT (MICRO) WITHOUT REFLEX TO CULTURE Routine 04/03/2009 10:32 EST BACTERIAL CULTURE, URINE Routine 04/03/2009 10:19 EST BACTERIAL CULTURE, URINE Routine 03/28/2009 12:38 EST URINE MICROSCOPIC Routine 03/11/2009 14: 56 EST URINALYSIS WITH MICROSCOPIC IF POSITIVE Routine 03/11/2009 14:56 EST URINE CULTURE IF POSITIVE Routine 03/11/2009 14:56 EST BACTERIAL CULTURE, URINE Routine 03/11/2009 14:56 EST documented in this encounter Results * UA WITH MICROSCOPIC (04/03/2009 10:32 EST) Color, UA Yellow [facility] Clarity, UA Clear [facility] Glucose, UA Neg NEG [facility] Bilirubin, UA Neg NEG [facility] Ketones, UA Neg NEG [facility] Specific [place], Urine <1.005 1.001 - 1.035 [facility] Blood, UA Neg NEG [facility] pH, UA 6.5 4.6 - 8.0 [facility] Protein, UA Neg NEG [facility] Urobilinogen, UA 0.2 0.2 - 1.0 E.U./dl [facility] Nitrite, UA Neg NEG [facility] Leuk Esterase Neg NEG [facility] WBC, UA less than 1 0 - 5 /HPF [facility] RBC, UA None seen 0 - 5 /HPF [facility] Squam Epithel, UA None seen NS /HPF [facility] Renal Epithel, UA None seen NS /HPF [facility] Bacteria, UA None seen NS /HPF [facility] Crystals, UA None seen /HPF [facility] Hyaline Casts, UA Few Hyaline /LPF [facility] Comment Microscopic results are unreliable on urines unrefrig >2hrs or refrig >8hrs. [facility] Comment Small sample, less than 12 ml received. [facility] Mucus, UA Present [facility] Urine specimen (specimen) 04/03/2009 10:32 EST 04/03/2009 10:32 EST Katharina Mcdonald PA-C URINALYSIS ORDERAB LES [facility] [address] [place] [address] * BACTERIAL CULTURE, URINE (04/03/2009 10:19 EST) Specimen Description Urine [facility] Result Less than 10,000 CFU/ml Gram positive organism [facility] Report Status Final 04/04/2009 [facility] Urine specimen (specimen) 04/03/2009 10:19 EST 04/03/2009 12:19 EST Katharina CUETO-C MICROBIOLOGY - GEN ERAL ORDERABLES Performing Organization Address City/[facility]/ZIP Co de Phone Number [facility] [address] [place] [address] * BACTERIAL CULTURE, URINE (03/28/2009 12:38 EST) Specimen Description Urine [facility] Result Less than 10,000 CFU/ml Mixed gram positive growth [facility] Report Status Final 03/30/2009 [facility] Urine specimen (specimen) 03/28/2009 12:38 EST 03/28/2009 17:51 EST Destinee Montague PA-C MICROBIOLOGY - G ENERAL ORDERABLES Performing Organization Address [facility] Co de Phone Number [facility] [address] [place] [address] * BACTERIAL CULTURE, URINE (03/11/2009 14:56 EST) Specimen Description Urine [facility] Result 10,000 to 100,000 CFU/ml LACTOBACILLU S SPECIES Less than 10,000 CFU/ml Mixed gram positive growth [facility] Report Status Final 03/13/2009 [facility] 03/11/2009 14:5 6 EST 03/11/2009 18:36 EST Destinee CUETO-C MICROBIOLOGY - G ENERAL ORDERABLES Performing Organization Address [facility] Co de Phone Number [facility] [address] [place] [address] * (ABNORMAL) URINE MICROSCOPIC (03/11/2009 14:56 EST) WBC, UA 1 to 5 0 - 5 /HPF [facility] RBC, UA less than 1 0 - 5 /HPF [facility] Squam Epithel, UA Frequent(A) NS /HPF [facility] Renal Epithel, UA None seen NS /HPF [facility] Bacteria, UA Frequent(A) NS /HPF [facility] Crystals, UA None seen /HPF [facility] Hyaline Casts, UA None seen /LPF [facility] Comment Microscopic results are unreliable on urines unrefrig >2hrs or refrig >8hrs. Performed at [facility], [place], [place] [facility] 03/11/2009 14:5 6 EST 03/11/2009 14:58 EST Destinee Montague PA-C URINALYSIS ORDER JORDI Performing Organization Address [facility] Co de Phone Number [facility] [address] [place] [address] * CULTURE IF UA POSITIVE (03/11/2009 14:56 EST) Culture if Indicated Culture indicated by urinalysis results. [facility] Urine specimen (specimen) 03/11/2009 14:56 EST 03/11/2009 14:58 EST Destinee Montague PA-C MICROBIOLOGY - G ENERAL ORDERABLES Performing Organization Address [facility] Co de Phone Number [facility] [address] [place] [address] * (ABNORMAL) URINALYSIS WITH REFLEX MICROSCOPIC (03/11/2009 14:56 EST) Color, UA Yellow [facility] Clarity, UA Clear [facility] Glucose, UA Neg NEG [facility] Bilirubin, UA Neg NEG [facility] Ketones, UA Neg NEG [facility] Specific [place], Urine <1.005 1.001 - 1.03 [facility] Blood, UA Neg NEG [facility] pH, UA 5.5 4.6 - 8.0 [facility] Protein, UA Neg NEG [facility] Urobilinogen, UA 0.2 0.2 - 1.0 E.U./dl [facility] Nitrite, UA Neg NEG [facility] Leuk Esterase Trace(A) NEG [facility] Comment:Performed at [facility], [place], [place] Urine specimen (specimen) 03/11/2009 14:56 EST 03/11/2009 14:58 EST Destinee Montague PA-C URINALYSIS ORDER JORDI [facility] [address] [place] [address] documented in this encounter Visit Diagnoses Not on filedocumented in this encounter Care Teams Associate Broker Relationship Specialty Start Date End Date Miri Vilchis MD PhD [address] [place] [phone] PCP - General 08/20/08 11/21/18 documented as of this encounter
--- OUTSIDE RECORDS SUMMARY | 2023-10-19 15:37 | XMS_ITS | Encounter Summary ---
Author Organization [facility] Address [address] [place] [address] Care Team Providers Care Plant Machinist Name Role Phone Miri Vilchis MD PhD Primary Care Provider Reason for Visit * Reason Onset Date Comments Results 07/25/2009 Encounter Details Date Type Department Care Team (Late st Contact Info) Description 07/25/2009 Telephone [facility] Adult Primary Care - [address] [address] Destinee Montague PA-C [address] [place] [phone] Results Social History Tobacco Use Types [...] mouth daily. 1 Package 11 07/25/2009 04/22/2010 documented in this encounter Miscellaneous Notes * Telephone Encounter - Patt Duong RN - 07/25/2009 1736 EDT Pt aware of the results of US. Reports that she cont to have her menses every 2 weeks. Hasn't started the new control pills yet, but will pick pulling machine operator and start with new cycle. * Telephone Encounter - Destinee Montague PA-C - 07/25/2009 1647 EDT Please inform pt that her pelvic US shows normal ovaries and uterus. She has a small benign cyst onher cervix. This does not need any treatment. Is she still having bleeding? If pt has not switched control pills to ortho-cyclen, then I would like to do this. Eprescribed. documented in this encounter Plan of Treatment Upcoming Encounters Date Type Department Care Team (Late st Contact Info) Description 10/22/2023 13:25 EDT Hospital Encounter [facility] OR [address] [place] [address] [phone] Walker Pride MD [address] [place] [phone] 10/22/2023 13:25 EDT - 10/22/2023 17:00 EDT Surgery [facility] OR [address] [place] [address] [phone] Walker Pride MD [address] [place] [phone] Left L34 decompression, redo left L45 decompression [41783 (CPT??)] 11/22/2023 10:00 EDT Post-op Visit [facility] Neurosurgery - [address] [address] Madiha Hurtado, KARIME [address] [facility], [facility], [address] [place] [phone] Scheduled Procedures Name Priority Associated Diagnoses Date/Ti [...] Start Date End Da te norgestimate-ethinyl estradiol (ORTHO TRI-CYCLEN, 28,) .18/.215/.25-35 mg-mcg (28) tablet Take 1 Tab by mouth daily. Duplicate Therapy 07/25/2009 documented as of this encounter Care Teams Plant Machinist Relationship Specialty Start Date End Date Miri Vilchis MD PhD [address] [place] [phone] PCP - General 08/20/08 11/21/18 documented as of this encounter
--- OUTSIDE RECORDS SUMMARY | 2023-10-19 15:37 | XMS_ITS | Encounter Summary ---
Author Organization [facility] Address [address] [place] [address] Care Team Providers Care Animal Technician Name Role Phone Miri Vilchis MD PhD Primary Care Provider Reason for Visit * Reason Comments Urinary Tract Infection Encounter Details Date Type Department Care Team (Late st Contact Info) Description 04/10/2009 10:00 EST Office Visit [facility] Urology - [facility] [address] [place], [place] [phone] Katharina Mcdonald, PAPrettyC [address] [place] [phone] Constipation by delayed colonic transit (Primary Dx) Social History Tobacco Use Types [...] as of this encounter Progress Notes * Katharina Mcdonald. - 04/29/2009 1303 EST DIVISION OF UROLOGY PROGRESS/FOLLOWUP NOTE - 04/10/[address] Vilchis: Teri Toribio was seen in our office today in followup for her urinary tract symptoms. Teri was initially seen last week in our office, at which time we felt that her urinary symptoms were related more to her bowel habits, more specifically with her issues of constipation. She did present to the ED this past Wednesday, at which time she underwent CT of the abdomen and pelvis, transvaginal ultrasound and an abdominal ultrasound. The CT of her abdomen and pelvis showed no nephrolithiasis or urolithiasis or hydronephrosis or any sign of acute urinary tract issues. She had a normal-appearing bladder, which was full. She also had a very large amount of stool within her bowels, which seemed to be compressing on her bladder. A small right-sided ovarian cyst and a benign right renal cyst were also seen on the CT. Teri was given a prescription for Dilaudid for the pain, which she has been taking at nighttime to help her sleep as the Ambien I had prescribed to her last week did not keep her sleeping throughout the whole night. She then saw you on Wednesday in followup and was encouraged to increase her MiraLax to 3 times a day. Today in the office, Teri states that she still has not had a good BM since she was seen in the ED. She complains of intermittent nausea with decreased appetite. She has done 2 Fleet enemas with some success, however, she is not having regular bowel movements. She continues on the MiraLax 3 times a day, which I encouraged her to continue until she was having regular bowel movements. I would alsoencourage her to continue her Colace as well. I had a long discussion with Teri and her mother today about the importance of getting her bowel function regulated. She will continue on the MiraLax 3 times a day and the Colace for the next week. She was also encouraged to stay hydrated and to try and avoid the Dilaudid as possible as that can contribute to her constipation. She was encouraged to a high fiber diet as well. She was also told that if needed within the next couple of days she could take an oral laxative such as Dulcolax insteadof an enema. All of Teri's questions were answered today. She will follow up with me in 1 month sowe can touch base on her progress. In the interim if she has any issues, she knows to call the office or to email me at anytime. It was pleasure seeing Teri and her mother today in the office. Of course I will continue to keep you informed of her urological care and followup. Your sincerely, Electronically Signed by ROM Fry 04/29/2009 13:03 Dictated by: ROM Fry - ROM Fry Torrey - CLAUDETTE Job ID: SM Doc ID: [id number] Ext Doc ID: [id number] cc: Miri Vilchis MD,PhD * Inpatient, Physician - 04/23/2009 1640 EST documented in this encounter Plan of Treatment Upcoming Encounters Date Type Department Care Team (Late st Contact Info) Description 10/22/2023 13:25 EDT Hospital Encounter [facility] OR [address] [place] [address] [phone] Walker Pride MD [address] [place] [phone] 10/22/2023 13:25 EDT - 10/22/2023 17:00 EDT Surgery [facility] OR [address] [place] [address] [phone] Walker Pride MD [address] [place] [phone] Left L34 decompression, redo left L45 decompression [16918 (CPT??)] 11/22/2023 10:00 EDT Post-op Visit [facility] Neurosurgery - [address] [address] Madiha Hurtado NP [address] [place], [place] [address]on, [address] [place] [phone] Scheduled Procedures Name Priority Associated Diagnoses Date/Ti me LAMINECTOMY, SPINE, LUMBAR, 1 LEVEL, WITH FORAMINOTOMY OR FACETECTOMY Lumbar radiculopathy 10/22/2023 13:25 EDT LAMINECTOMY, SPINE, WITH FACETECTOMY AND FORAMINOTOMY, ADDITIONAL LEVEL FOLLOWING INITIAL LEVEL Lumbar radiculopathy 10/22/2023 13:25 EDT documented as of this encounter Visit Diagnoses Diagnosis Constipation by delayed colonic transit- Primary Slow transit constipation Lumbar radiculopathy Thoracic or lumbosacral neuritis or radiculitis, unspecified documented in this encounter Care Teams Animal Technician Relationship Specialty Start Date End Date Miri Vilchis MD PhD [address] [place] [phone] PCP - General 08/20/08 11/21/18 documented as of this encounter
--- OUTSIDE RECORDS SUMMARY | 2023-10-19 15:37 | XMS_ITS | Encounter Summary ---
Author Organization [facility] Address [address] [place] [address] Care Team Providers Care Credit And Collections Analyst Name Role Phone Miri Vilchis MD PhD Primary Care Provider Reason for Visit * Reason Comments Menstrual Problem every two weeks x 2 months Other pain during bowel mo vements Follow-up f/u to [facility] in Mar/Apr for irregular menses, cramping Encounter Details Date Type Department Care Team (Late st Contact Info) Description 06/28/2009 9:30 EDT Office Visit [facility] Adult Primary Care - [address] [address] Destinee Montague PA-C [address] [place] [phone] Irregular menses (Primary Dx); Constipation by delayed colonic transit Social History Tobacco Use Types Packs/Day Years [...] Sign Reading Time Taken Comments Blood Pressure 90/60 06/28/2009915 EDT Pulse 58 06/28/2009915 EDT Temperature 36.4 ??C (97.6 ??F) 06/28/2009915 EDT Respiratory Rate 18 06/28/2009915 EDT Oxygen Saturation - - Inhaled Oxygen Concentration - - Weight 55.3 kg (122 lb) 06/28/2009915 EDT Height 163.8 cm (5' 4.5) 06/28/2009915 EDT Body Mass Index 20.62 06/28/2009915 EDT documented in this encounter Patient Instructions * Patient Instructions* Destinee Montague PA-C - 06/28/2009 12:49 EDT Labs documented in this encounter Progress Notes * Destinee Montague PA-C - 06/28/2009944 EDT Subjective: Patient ID: Teri Toribio is an 18 y.o. female. Chief Complaint: HPI Comments: Pt has intermittent myalgias in hands x several minutes and then it resolves. Pt feesl symptoms in hand, hip or foot. Resolves after several minutes. pt is taking miralax tid to have normal BMs. Pt did see GI and had upper GI. Pt had a slow transit time. Pt was on another medication . Pt is going to see a P.T. To help with urinary symptoms. Pt hasappt with P.T. To help with pelvic floor strenghtening. Pt is taking control pills, orthotricyclen. Pt began 2006. Pt has always been regular until 2months ago. Pt LMP 06/15/09. Pt states that menses last 5-6 days. Pt notes that she that she did not miss any pills. Pt has been taking regularly. Pt has been having menses q 2 weeks since the beginning of May. Other The history is provided by the patient. No used equipment sales representative was used. This is a new problem. The current episode started more than 1 month ago. The problem occurs intermittently. The problem has been unchanged. Pertinent negatives include no chest pain, no abdominal pain, no headaches and no shortness of breath. Nothing worsens the symptoms. Nothing relieves the symptoms. She has tried nothing for the symptoms. History reviewed. No pertinent past medical history. History reviewed. No pertinent family history. Current outpatient prescriptions Medication Sig Dispense Refill ??? UNABLE TO FIND control No Known Allergies History Social History ??? [...] No narrative on file Review of Systems Respiratory: Negative for shortness of breath. Cardiovascular: Negative for chest pain. Gastrointestinal: Negative for abdominal pain. Neurological: Negative for headaches. Objective: Physical Exam Constitutional: She is oriented. She appears well-developed and well-nourished. She appears not diaphoretic. No distress. Neck: Normal range of motion. Neck supple. No tracheal deviation present. No thyromegaly present. Cardiovascular: Normal rate and normal heart sounds. No murmur heard. Pulmonary/Chest: Effort normal and breath sounds normal. No stridor. No respiratory distress. She has no wheezes. She has no rales. Abdominal: Soft. Bowel sounds are normal. She exhibits no distension and no mass. Tenderness (mild tenderness in LLQ to deep palpation. no rebound tenderness) is present. She has no rebound and no guarding. Lymphadenopathy: She has no cervical adenopathy. Neurological: She is alert and oriented. She exhibits normal muscle tone. Coordination normal. Skin: Skin is warm and dry. She is not diaphoretic. Psychiatric: She has a normal mood and affect. Her behavior is normal. Assessment: Irregular menses Plan: Labs, CBC, CMP, TSH, LH, FSH, prolactin, DHEA, Bhcg Plan to change control pill after viewing labs to orthonovum to see if tolerated better. Consider pelvic US if needed, pt had pap 10/21, due 10/22. documented in this encounter Plan of Treatment Upcoming Encounters Date Type Department Care Team (Late st Contact Info) Description 10/22/2023 13:25 EDT Hospital Encounter [facility] OR [address] [place] [address] [phone] Walker Pride MD [address] [place] [address], [address] [place] [phone] 10/22/2023 13:25 EDT - 10/22/2023 17:00 EDT Surgery [facility] OR [address] [place] [address] [phone] Walker Pride MD [address] [place] [address], [facility] [address] [place] [phone] Left L34 decompression, redo left L45 decompression [71215 (CPT??)] 11/22/2023 10:00 EDT Post-op Visit [facility] Neurosurgery - [address] [phone] Madiha Hurtado NP [address] [place] [address], [facility] [address] [place] [phone] Scheduled Procedures Name Priority Associated Diagnoses Date/Ti me LAMINECTOMY, SPINE, LUMBAR, 1 LEVEL, WITH FORAMINOTOMY OR FACETECTOMY Lumbar radiculopathy 10/22/2023 13:25 EDT LAMINECTOMY, SPINE, WITH FACETECTOMY AND FORAMINOTOMY, ADDITIONAL LEVEL FOLLOWING INITIAL LEVEL Lumbar radiculopathy 10/22/2023 13:25 EDT documented as of this encounter Results * PROLACTIN (07/01/2009 11:46 EDT) Prolactin 6.0 ng/ml [facility] Comment: Non-: 2.8-29.2 : 9.7-208.5 Post Menopausal: 1.8-20.3 Blood specimen (specimen) 07/01/2009 11:46 EDT 07/01/2009 11:49 EDT Destinee Montague PA-C CHEMISTRY & BLOO D GAS ORDERABLES Performing Organization Address [facility] de Phone Number [facility] [address] [place] [address] * HCG (07/01/2009 11:46 EDT) HCG <4 <4 mIU/ml [facility] Comment: Reference Range: Positive = >10 Borderline = 4-10 recommend repeat. Negative = <4 Blood specimen (specimen) 07/01/2009 11:46 EDT 07/01/2009 11:49 EDT Destinee Montague PA-C CHEMISTRY & BLOO D GAS ORDERABLES Performing Organization Address [facility] de Phone Number [facility] [address] [place] [address] * LH (07/01/2009 11:46 EDT) LH <0.1 mIU/ml [facility] Comment: Follicular: 1-18 Mid-Cycle Peak: 15-80 Luteal: 0.5-18 Postmenopausal: 12-55 Blood specimen (specimen) 07/01/2009 11:46 EDT 07/01/2009 11:49 EDT Destinee Montague PA-C CHEMISTRY & BLOO D GAS ORDERABLES Performing Organization Address [facility] de Phone Number [facility] [address] [place] [address] * DHEA SULFATE (07/01/2009 11:46 EDT) DHEA Sulfate 58 44 - 332 ug/dl [facility] Blood specimen (specimen) 07/01/2009 11:46 EDT 07/01/2009 11:49 EDT Destinee Montague PA-C CHEMISTRY & BLOO D GAS ORDERABLES Performing Organization Address City/[facility] Co de Phone Number [facility] [address] [place] [address] * FSH (07/01/2009 11:46 EDT) Pathologist [facility] FSH <0.3 mIU/ml [facility] Comment: Follicular: 2-11 Mid-Cycle Peak: 3.4-35 Luteal: 1-9 Postmenopausal: 25-120 Blood specimen (specimen) 07/01/2009 11:46 EDT 07/01/2009 11:48 EDT Destinee Montague PA-C CHEMISTRY & BLOO D GAS ORDERABLES Performing Organization Address [facility] Co de Phone Number [facility] [address] [place] [address] * TSH (07/01/2009 11:46 EDT) [facility] TSH 1.08 0.35 - 5.00 uIU/ml [facility] Blood specimen (specimen) 07/01/2009 11:46 EDT 07/01/2009 11:48 EDT Destinee Montague PA-C CHEMISTRY & BLOO D GAS ORDERABLES Performing Organization Address [facility] Co de Phone Number [facility] [address] [place] [address] * (ABNORMAL) HEMAGRAM AND DIFFERENTIAL (07/01/2009 11:46 EDT) [facility] WBC 4.14 4.0 - 12.4 K/cmm [facility] RBC 3.65(L) 3.86 - 5.04 M/cmm [facility] Hemoglobin 13.0 11.6 - 15.2 gm/dl [facility] HCT 36.9 34.9 - 44.4 % [facility] MCV 101(H) 81 - 98 fl [facility] MCH 35.5(H) 26.7 - 33.3 pg [facility] MCHC 35.1 32.1 - 35.9 gm/dl [facility] PLT 135(L) 141 - 320 K/cmm [facility] RDW-CV 12.7 11.7 - 14.6 % [...] ABS Eosinophils 0.13 0.03 - 0.61 K/cmm [facility] ABS Basophils 0.04 0.01 - 0.11 K/cmm [facility] Type of Diff: Automated [facility] Blood specimen (specimen) 07/01/2009 11:46 EDT 07/01/2009 11:48 EDT Destinee Montague PA-C PACKAGES & DNA P IMER ORDERABLES [facility] [address] [place] [address] * (ABNORMAL) COMPREHENSIVE METABOLIC PANEL (07/01/2009 11:46 EDT) Potassium 4.0 3.5 - 5.0 mEq/L [facility] Sodium 137 136 - 145 mEq/L [facility] Chloride 104 96 - 110 mEq/L [facility] CO2 29 24 - 32 mEq/L [facility] Total Alkaline Phosphatase 41 38 - 126 U/L [facility] Bilirubin, Total <0.5 0.2 - 1.3 mg/dl [facility] AST 25 15 - 46 U/L [facility] ALT 21 9 - 52 U/L [facility] Albumin 3.7 3.4 - 4.9 g/dl [facility] Total Protein 6.6 6.5 - [...] res ult confirmed Fasting? No Performed at [facility] Blood specimen (specimen) 07/01/2009 11:46 EDT 07/01/2009 11:48 EDT Destinee Montague PA-C CHEMISTRY & BLOO D GAS ORDERABLES [facility] [address] [place] [address] documented in this encounter Visit Diagnoses Diagnosis Irregular menses- Primary Irregular menstrual cycle Constipation by delayed colonic transit Slow transit constipation Lumbar radiculopathy Thoracic or lumbosacral neuritis or radiculitis, unspecified documented in this encounter Discontinued Medications Medication Sig Discontinue Reason Start Date End Da te HYDROmorphone (DILAUDID) 2 mg tablet Take 1-2 Tabs by mouth every 6 hours as needed for Pain. Patient Stopped Taking 04/07/2009 06/28/2009 UNABLE TO FIND control Duplicate Therapy 06/28/2009 documented as of this encounter Historical Medications * This list may reflect changes made after this encounter. Medication Sig Dispensed Refills Start Date End Date PEG 3350-Electrolytes (MIRALAX) 17 gram packetIndications:Constip ation by delayed colonic transit Take 17 g by mouth 3 times daily. 09/08/2012 norgestimate-ethinyl estradiol (ORTHO TRI-CYCLEN, 28,) .18/.215/.25-35 mg-mcg (28) tablet Take 1 Tab by mouth daily. 07/25/2009 added in this encounter Care Teams Credit And Collections Analyst Relationship Specialty Start Date End Date Miri Vilchis MD PhD [address] [place] [phone] PCP - General 08/20/08 11/21/18 documented as of this encounter
--- OUTSIDE RECORDS SUMMARY | 2023-10-19 15:37 | XMS_ITS | Encounter Summary ---
Author Organization [facility] Address [address] [place] [address] Care Team Providers Care Road Sign Installer Name Role Phone Miri Vilchis MD PhD Primary Care Provider Encounter Details Date Type Department Care Team (Latest Contact Info) Description 04/30/2009 16:34 EST - 04/30/2009 23:59 EST Hospital Encounter [place] [phone] [place] [address] Chay Hunter MD Discharge Disposition: Auto Discharge [...] Info) Description 10/22/2023 13:25 EDT Hospital Encounter [facility] OR [address] [place] [address] [phone] Walker Pride MD [address] [place] [address], [facility] [address] [place] [phone] 10/22/2023 13:25 EDT - 10/22/2023 17:00 EDT Surgery [facility] OR [address] [place] [phone] Walker Pride MD [address] [place] [phone] Left L34 decompression, redo left L45 decompression [76054 (CPT??)] 11/22/2023 10:00 EDT Post-op Visit [facility] Neurosurgery - [address] [phone] Madiha Hurtado NP [address] [place] [address], [facility] [address] [place] [phone] Scheduled Procedures Name Priority Associated Diagnoses Date/Ti me LAMINECTOMY, SPINE, LUMBAR, 1 LEVEL, WITH FORAMINOTOMY OR FACETECTOMY Lumbar radiculopathy 10/22/2023 13:25 EDT LAMINECTOMY, SPINE, WITH FACETECTOMY AND FORAMINOTOMY, ADDITIONAL LEVEL FOLLOWING INITIAL LEVEL Lumbar radiculopathy 10/22/2023 13:25 EDT documented as of this encounter Procedures Procedure Name Priority Date/Time Associated Diagnosis Comments ABDOMEN AP 1 VIEW 04/30/2009 16: 48 EST documented in this encounter Results * ABDOMEN AP 1 VIEW (04/30/2009 16:48 EST) Anatomical Region Laterality Modality Other 04/30/2009 16:4 8 EST 04/30/2009 19:14 EST Narrative 04/30/2009 19:14 EST ABDOMEN AP 1 VIEW Apr 30, 2009 04:48:00 PM Signs and Symptoms/Comments: ??To assess motility of sitz marker swallowed on 04/25, abnormal xray, abdominal pain Comparison: 04/26/2009. [place]: Single view of the abdomen and pelvis demonstrates solid stool throughout the colon. 14 cyst sits markers are noted; one in the hepatic flexure, 2 in the descending colon and the remainder overlying the rectal /sigmoid region. Procedure Note 04/30/2009 ABDOMEN AP 1 VIEW Apr 30, 2009 04:48:00 PM Signs and Symptoms/Comments: To assess motility of sitz marker swallowed on 04/25, abnormal xray, abdominal pain Comparison: 04/26/2009. Fight[place]: Single view of the abdomen and pelvis demonstrates solid stool throughout the colon. 14 cyst sits markers are noted; one in the hepatic flexure, 2 in the descending colon and the remainder overlying the rectal /sigmoid region. Chay Hunter MD IMG DIAGNOSTIC IMAGI NG ORDERABLES documented in this encounter Visit Diagnoses Not on filedocumented in this encounter Care Teams Road Sign Installer Relationship Specialty Start Date End Date Miri Vilchis MD PhD [address] [place] [phone] PCP - General 08/20/08 11/21/18 documented as of this encounter
--- OUTSIDE RECORDS SUMMARY | 2023-10-19 15:37 | XMS_ITS | Encounter Summary ---
Author Organization [facility] Address [address] [place] [address] Care Team Providers Care Cake Stripper Name Role Phone Unavailable Primary Care Provider Unavailabl e Encounter Details Date Type Department Care Team (Latest Contact Info) Description 12/30/2007 14:04 EDT Hospital Encounter [facility] - Map conversion [address] [place] [address] Nataly Vilchis MD PhD [address] [place] [phone] Roger Pittman MD [address] [place] [address] [phone] Discharge Disposition: Auto Discharge Social History Tobacco [...] Info) Description 10/22/2023 13:25 EDT Hospital Encounter [facility] [place] [address] [place], [place] 9[address] Walker Pride MD [address] [place] [address], Level [address] [place] [phone] 10/22/2023 13:25 EDT - 10/22/2023 17:00 EDT Surgery [facility] OR [address] [place] [address] [phone] Walker Pride MD [address] [place] [address], [address] [place] [phone] Left L34 decompression, redo left L45 decompression [[id number] (CPT??)] 11/22/2023 10:00 EDT Post-op Visit [facility] Neurosurgery - [address] [phone] Madiha Hurtado NP [address] [place] [address], [address] [place] [phone] Scheduled Procedures Name Priority Associated Diagnoses Date/Ti me LAMINECTOMY, SPINE, LUMBAR, 1 LEVEL, WITH FORAMINOTOMY OR FACETECTOMY Lumbar radiculopathy 10/22/2023 13:25 EDT LAMINECTOMY, SPINE, WITH FACETECTOMY AND FORAMINOTOMY, ADDITIONAL LEVEL FOLLOWING INITIAL LEVEL Lumbar radiculopathy 10/22/2023 13:25 EDT documented as of this encounter Procedures Procedure Name Priority Date/Time Associated Diagnosis Comments CHLAMYDIA/N. GONORRHOEAE AMPLIFIED NUCLEIC ACID Routine 10/22/2008 13:30 EDT CYTOPATHOLOGY Routine 10/22/2008 0:00 EDT documented in this encounter Results * CHLAMYDIA/GC AMPLIFIED (10/22/2008 13:30 EDT) Specimen Description [facility] Result No Chlamydia trachomatis DNA detected by computer education professor mediated amplification. [facility] Result No Neisseria gonorrhoeae DNA detected by computer education professor mediated amplification. [facility] Specimen of unknown material (specimen) 10/22/2008 13:30 EDT 10/22/2008 17:09 EDT Nataly Vilchis MD PhD MICROBIOLOGY - GENERAL ORDERABLES Performing Organization Address City/State/[facility] Co de Phone Number [facility] [address] [place] [address] * CYTOPATHOLOGY (10/22/2008 0:00 EDT) Pathology Report: CYTOPATHOLOGY REPORT ? Reports generated via electronic interface contain original data; ? however they are lacking the format of the original report. ? Caution should be taken when reading/interpreti ng unformatted reports. ? Name: ? SARAH LANGE ? Accession #: ? [id number] ? : ? 1990 (Age: 18) ??F ?Collect Date: ? 10/22/2008 ? Location: ? [facility] ? Receive Date: ? 10/23/2008 ? Provider: ?NATALY A KERRI MD ? Copy to: ? Specimen/Source: ?Pap Test, Cervix/Endocervix, ThinPrep Imaging System ? with manual evaluation ? Last Menstrual Period: ? 7/27/09 ? Hormonal/Contracep tive Status: ? Oral contraceptives ? Other: ? HPVA - HPV testing requested if ASC-US on the current ThinPrep Pap test. ? SPECIMEN ADEQUACY ? Satisfactory for Evaluation ? - transformation zone component present ? GENERAL CATEGORIZATION ? Negative for Intraepithelial Lesion or Malignancy ? INTERPRETATION ? Fungal organisms present morphologically consistent with Ryann species. ? Document reviewed and electronically signed by: ? Molly Faxon, CT(ASCP) ? Report Date: ??10/25/2008 13:35 ? End of Report ? [facility] 10/22/2008 10/23/2008 Nataly Vilchis MD PhD PATHOLOGY ORDER JORDI Performing Organization Address City/State/[facility] Co de Phone Number [facility] [address] [place] [address] documented in this encounter Visit Diagnoses Not on filedocumented in this encounter
--- OUTSIDE RECORDS SUMMARY | 2023-10-19 15:37 | XMS_ITS | Encounter Summary ---
Author Organization [facility] Address [address] [place] [address] Care Team Providers Care Reactor Technician Name Role Phone Unavailable Primary Care Provider Unavailabl e Encounter Details Date Type Department Care Team (Latest Contact Info) Description 08/02/2007 8:39 EDT - 08/02/2007 11:59 EDT Hospital Encounter [facility] - Maple conversion [address] [place], [place] [phone] Destinee Holman, AICHA [address] [place] [address] Discharge Disposition: Auto Discharge Social [...] Info) Description 10/22/2023 13:25 EDT Hospital Encounter [facility] [place] [address] [place], [place] [phone] Walker Pride MD 111 [facility], [address] [place] [phone] 10/22/2023 13:25 EDT - 10/22/2023 17:00 EDT Surgery [facility] [place] [address] [place] [phone] Walker Pride MD [address] [place] [address], [facility], Level [address] [place] [phone] Left L34 decompression, redo left L45 decompression [[id number] (CPT??)] 11/22/2023 10:00 EDT Post-op Visit [facility] Neurosurgery - [address] [phone] Madiha Hurtado NP [address] [place] [address], [facility], [address] [place] [phone] Scheduled Procedures Name Priority Associated Diagnoses Date/Ti me LAMINECTOMY, SPINE, LUMBAR, 1 LEVEL, WITH FORAMINOTOMY OR FACETECTOMY Lumbar radiculopathy 10/22/2023 13:25 EDT LAMINECTOMY, SPINE, WITH FACETECTOMY AND FORAMINOTOMY, ADDITIONAL LEVEL FOLLOWING INITIAL LEVEL Lumbar radiculopathy 10/22/2023 13:25 EDT documented as of this encounter Visit Diagnoses Not on filedocumented in this encounter
--- OUTSIDE RECORDS SUMMARY | 2023-10-19 15:37 | XMS_ITS | Encounter Summary ---
Author Organization [facility] Address [address] [place] [address] Care Team Providers Care Outside Production Inspector Name Role Phone Miri Vilchis MD PhD Primary Care Provider Encounter Details Date Type Department Care Team (Late st Contact Info) Description 08/02/2007 Results Only [facility] Adult Primary Care - [address] [phone] Destinee Holman, TEACHER [employer]ATER [employer] [address] [place], [place] [phone] Social History Tobacco Use Types Packs/Day Years [...] [facility] OR [address] [place], [place] [phone] Walker Pride MD 111 [facility], [address] [place] [phone] 10/22/2023 13:25 EDT - 10/22/2023 17:00 EDT Surgery [facility] OR [address] [place], [place] [address] Walker Pride MD 111 [facility], [address] [place] [phone] Left L34 decompression, redo left L45 decompression [[id number] (CPT??)] 11/22/2023 10:00 EDT Post-op Visit [facility] Neurosurgery - [facility] [address] [place], [place] [phone] Madiha Hurtado NP 111 [facility], [address] [place] [phone] Scheduled Procedures Name Priority Associated Diagnoses Date/Ti me LAMINECTOMY, SPINE, LUMBAR, 1 LEVEL, WITH FORAMINOTOMY OR FACETECTOMY Lumbar radiculopathy 10/22/2023 13:25 EDT LAMINECTOMY, SPINE, WITH FACETECTOMY AND FORAMINOTOMY, ADDITIONAL LEVEL FOLLOWING INITIAL LEVEL Lumbar radiculopathy 10/22/2023 13:25 EDT documented as of this encounter Procedures Procedure Name Priority Date/Time Associated Diagnosis Comments BACTERIAL CULTURE, URINE Routine 08/02/2007 9:01 EDT documented in this encounter Results * BACTERIAL CULTURE, URINE (08/02/2007 9:01 EDT) Specimen Description Urine [facility] Result Less than 10,000 CFU/ml Mixed gram positive growth [facility] Report Status Final [id number] [facility] 08/02/2007 9:01 EDT 08/02/2007 14:01 EDT Destinee Holman APRN MICROBIOLOGY - GENER AL ORDERABLES [facility] [address] [place] [address] documented in this encounter Visit Diagnoses Not on filedocumented in this encounter Care Teams Outside Production Inspector Relationship Specialty Start Date End Date Miri Vilchis MD PhD [address] [place] [phone] PCP - General 08/20/08 11/21/18 documented as of this encounter
--- OUTSIDE RECORDS SUMMARY | 2023-10-19 15:37 | XMS_ITS | Encounter Summary ---
Author Organization [facility] Address [address] [place] [address] Care Team Providers Care Appliance Service Technician Name Role Phone Miri Vilchis MD PhD Primary Care Provider Encounter Details Date Type Department Care Team (Late st Contact Info) Description 06/25/2009 Abstract [facility] Adult Primary Care - [address] [address] Miri Vilchis MD PhD [address] [place] [phone] Contraceptive management Social History Tobacco Use Types Packs/Day Years [...] Hospital Encounter [facility] [place] [address] [place], [place] [phone] Walker Pride MD 111 [facility], [address] [place] [phone] 10/22/2023 13:25 EDT - 10/22/2023 17:00 EDT Surgery [facility] [place] [address] [place], [place] [address] Walker Pride MD 111 [facility], [facility], [address] [place] [phone] Left L34 decompression, redo left L45 decompression [[id number] (CPT??)] 11/22/2023 10:00 EDT Post-op Visit [facility] Neurosurgery - [address] [phone] Madiha Hurtado NP 111 [facility], [facility], [address] [place] [phone] Scheduled Procedures Name Priority Associated Diagnoses Date/Ti me LAMINECTOMY, SPINE, LUMBAR, 1 LEVEL, WITH FORAMINOTOMY OR FACETECTOMY Lumbar radiculopathy 10/22/2023 13:25 EDT LAMINECTOMY, SPINE, WITH FACETECTOMY AND FORAMINOTOMY, ADDITIONAL LEVEL FOLLOWING INITIAL LEVEL Lumbar radiculopathy 10/22/2023 13:25 EDT documented as of this encounter Visit Diagnoses Diagnosis Contraceptive management Unspecified contraceptive management Lumbar radiculopathy Thoracic or lumbosacral neuritis or radiculitis, unspecified documented in this encounter Care Teams Appliance Service Technician Relationship Specialty Start Date End Date Miri Vilchis MD PhD [address] [place] [phone] PCP - General 08/20/08 11/21/18 documented as of this encounter
--- OUTSIDE RECORDS SUMMARY | 2023-10-19 15:37 | XMS_ITS | Encounter Summary ---
Author Organization [facility] Address [address] [place] [address] Care Team Providers Care Iv Rn Name Role Phone Unavailable Primary Care Provider Unavailabl e Encounter Details Date Type Department Care Team (Latest Contact Info) Description 10/19/2007 8:27 EDT - 10/19/2007 11:59 EDT Hospital Encounter [facility] [place] [facility] - Maple conversion [address] [place], [place] [phone] Kajal Loepz MD [address] [place] [phone] Discharge Disposition: Auto Discharge Social History Tobacco [...] Encounter [facility] [place] [address] [place], [place] 8043[address] Walker Pride MD 111 [facility], [facility] 5 [place] [phone] 10/22/2023 13:25 EDT - 10/22/2023 17:00 EDT Surgery [facility] [place] [address] [place], [place] [address]95[address] Walker Pride MD [address] [place] [address], [facility], Level [address] [place] [phone] Left L34 decompression, redo left L45 decompression [[id number] (CPT??)] 11/22/2023 10:00 EDT Post-op Visit [facility] Neurosurgery - [address] [phone] Madiha Hurtado NP 111 [facility], [facility], [address] [place] [phone] Scheduled Procedures Name Priority Associated Diagnoses Date/Ti me LAMINECTOMY, SPINE, LUMBAR, 1 LEVEL, WITH FORAMINOTOMY OR FACETECTOMY Lumbar radiculopathy 10/22/2023 13:25 EDT LAMINECTOMY, SPINE, WITH FACETECTOMY AND FORAMINOTOMY, ADDITIONAL LEVEL FOLLOWING INITIAL LEVEL Lumbar radiculopathy 10/22/2023 13:25 EDT documented as of this encounter Visit Diagnoses Not on filedocumented in this encounter
--- OUTSIDE RECORDS SUMMARY | 2023-10-19 15:37 | XMS_ITS | Encounter Summary ---
Author Organization [facility] Address [address] [place] [address] Care Team Providers Care Home Health Travel Pt Name Role Phone Miri Vilchis MD PhD Primary Care Provider Encounter Details Date Type Department Care Team (Late st Contact Info) Description 04/08/2009 Orders Only [facility] Pelvic Medicine and Reconstructive Surgery - Medical Office [facility] [address] [place] [phone] Katharina Mcdonald, PAPrettyC [address] [place] [phone] Social History Tobacco Use Types Packs/Day Years [...] Hospital Encounter [facility] OR [address] [place] [address] Walker Pride MD 111 [facility] Level [address] [place] [phone] 10/22/2023 13:25 EDT - 10/22/2023 17:00 EDT Surgery [facility] OR [address] [place] [phone] Walker Pride MD [address] [place] [address], [facility] 5 [place] [phone] Left L34 decompression, redo left L45 decompression [[id number] (CPT??)] 11/22/2023 10:00 EDT Post-op Visit [facility] Neurosurgery - [address] [phone] Madiha Hurtado NP [address] [place] [address], [address] [place] [phone] Scheduled Procedures Name Priority Associated Diagnoses Date/Ti me LAMINECTOMY, SPINE, LUMBAR, 1 LEVEL, WITH FORAMINOTOMY OR FACETECTOMY Lumbar radiculopathy 10/22/2023 13:25 EDT LAMINECTOMY, SPINE, WITH FACETECTOMY AND FORAMINOTOMY, ADDITIONAL LEVEL FOLLOWING INITIAL LEVEL Lumbar radiculopathy 10/22/2023 13:25 EDT documented as of this encounter Visit Diagnoses Not on filedocumented in this encounter Care Teams Home Health Travel Pt Relationship Specialty Start Date End Date Miri Vilchis MD PhD [address] [place] [phone] PCP - General 08/20/08 11/21/18 documented as of this encounter
--- OUTSIDE RECORDS SUMMARY | 2023-10-19 15:37 | XMS_ITS | Encounter Summary ---
Author Organization [facility] Address [address] [place] [address] Care Team Providers Care Glass Glazier Name Role Phone Miri Vilchis MD PhD Primary Care Provider Reason for Visit * Reason Onset Date Comments Abdominal Pain 04/17/2009 Constipation 04/17/2009 Fatigue 04/17/2009 Encounter Details Date Type Department Care Team (Late st Contact Info) Description 04/17/2009 Telephone [facility] Adult Primary Care - [place] [address] [place] [address] Higinio Foley MD [address] [place] [phone] Abdominal Pain; Constipation; Fatigue Social History Tobacco Use Types Packs/Day Years [...] encounter Miscellaneous Notes * Telephone Encounter - Higinio Foley MD - 04/17/2009 2063 EST 18 y.o. female with a history of RLQ pain, gradually worsening constipation x months, much worse lately with very frequent urination. Seen in ED for this with normal CT and abdominal u/s except a lotof stool. No bowel movement since then x 9+ days, tonight tokk dulcolax tablet, 3 hours later sudden onset of severe abdominal pain, but also eyes closed speaking only briefly and feeling her head istoo heavy to lift, Very weak, but able to answer questions briefly. She is not able to come to the phone, only information from her mother. We reviewed how this may be increased cramping due to the dulcolax oral laxative, and a stress reaction to so much discomfort. Can't rule out other issues due to limited ability to query the patient. They will likely bring the patient to the ED, where some phospho-soda enemas or even a gastograffin enema could be used, after appropriate evaluation. If she starts to improve before that, they will call Dr. Vilchis's office in the am. documented in this encounter Plan of Treatment Upcoming Encounters Date Type Department Care Team (Late st Contact Info) Description 10/22/2023 13:25 EDT Hospital Encounter [facility] OR [address] [place] [address] [phone] Walker Pride MD [address] [place] [address] 5 [place] [phone] 10/22/2023 13:25 EDT - 10/22/2023 17:00 EDT Surgery [facility] OR [address] [place] [phone] Walker Pride MD [address] [place] [phone] Left L34 decompression, redo left L45 decompression [[id number] (CPT??)] 11/22/2023 10:00 EDT Post-op Visit [facility] Neurosurgery - [place] [address] [place] [address] Madiha Hurtado, KARIME 111 [facility], [facility], Level [address] [place] [phone] Scheduled Procedures Name Priority Associated Diagnoses Date/Ti me LAMINECTOMY, SPINE, LUMBAR, 1 LEVEL, WITH FORAMINOTOMY OR FACETECTOMY Lumbar radiculopathy 10/22/2023 13:25 EDT LAMINECTOMY, SPINE, WITH FACETECTOMY AND FORAMINOTOMY, ADDITIONAL LEVEL FOLLOWING INITIAL LEVEL Lumbar radiculopathy 10/22/2023 13:25 EDT documented as of this encounter Visit Diagnoses Not on filedocumented in this encounter Care Teams Glass Glazier Relationship Specialty Start Date End Date Miri Vilchis MD PhD [address] [place] [phone] PCP - General 08/20/08 11/21/18 documented as of this encounter
--- OUTSIDE RECORDS SUMMARY | 2023-10-19 15:38 | XMS_ITS | Encounter Summary ---
Author Organization [facility] Address [address] [place] [address] Care Team Providers Care Manager User Experience Name Role Phone Unavailable Primary Care Provider Unavailabl e Encounter Details Date Type Department Care Team (Latest Contact Info) Description 02/07/2001 17:13 EST Hospital Encounter [facility] [address] [place] [address] Alejandro Viramontes MD Discharge Disposition: Auto Discharge Social History [...] EDT Hospital Encounter [facility] OR [address] [place], [place] [phone] Walker Pride MD [address] [place] [address], [address] [place] [phone] 10/22/2023 13:25 EDT - 10/22/2023 17:00 EDT Surgery [facility] [place] [address] [place], [place] 1804[address] Walker Pride MD 111 [facility], Level [address] [place] [phone] Left L34 decompression, redo left L45 decompression [[id number] (CPT??)] 11/22/2023 10:00 EDT Post-op Visit [facility] Neurosurgery - [facility] [address] [place], [place] [phone] Madiha Hurtado NP 111 [facility], [address] [place] [phone] Scheduled Procedures Name Priority Associated Diagnoses Date/Ti me LAMINECTOMY, SPINE, LUMBAR, 1 LEVEL, WITH FORAMINOTOMY OR FACETECTOMY Lumbar radiculopathy 10/22/2023 13:25 EDT LAMINECTOMY, SPINE, WITH FACETECTOMY AND FORAMINOTOMY, ADDITIONAL LEVEL FOLLOWING INITIAL LEVEL Lumbar radiculopathy 10/22/2023 13:25 EDT documented as of this encounter Procedures Procedure Name Priority Date/Time Associated Diagnosis Comments FOOT 3 OR MORE VIEWS Routine 02/07/2001 17:31 EST ANKLE 3 OR MORE VIEWS Routine 02/07/2001 17:31 EST documented in this encounter Results * FOOT 3 OR MORE VIEWS (02/07/2001 17:31 EST) Anatomical Region Laterality Modality Other 02/07/2001 17:3 1 EST Narrative 02/01/2009 3:39 EST RT FOOT AND ANKLE INJURY, TENDER RT LATERAL ASPECT R/O FX THREE VIEWS OF THE RIGHT ANKLE AND THREE VIEWS OF THE RIGHT FOOT: 02/07/01. FINDINGS: The study shows minimal soft tissue swelling over the right lateral malleolus. No obvious fracture is seen. Growth plates are open and cannot completely rule out a Salter 1 type fracture of the lateral malleolus. If symptoms persist, repeat film in 7-10 days may show healing from a Salter 1 type fracture. /tns Procedure Note Ubaldo Briceno MD - 02/01/2009 RT FOOT AND ANKLE INJURY, TENDER RT LATERAL ASPECT R/O FX THREE VIEWS OF THE RIGHT ANKLE AND THREE VIEWS OF THE RIGHT FOOT: 02/07/01. FINDINGS: The study shows minimal soft tissue swelling over the right lateral malleolus. No obvious fracture is seen. Growth plates are open and cannot completely rule out a Salter 1 type fracture of the lateral malleolus. If symptoms persist, repeat film in 7-10 days may show healing from a Salter 1 type fracture. /tns Alejandro Viramontes MD [facility] ORDERABLES * ANKLE 3 OR MORE VIEWS (02/07/2001 17:31 EST) Anatomical Region Laterality Modality Other 02/07/2001 17:3 1 EST Narrative 02/01/2009 3:39 EST RT FOOT AND ANKLE INJURY, TENDER RT LATERAL ASPECT R/O FX Procedure Note Ubaldo Briceno MD - 02/01/2009 RT FOOT AND ANKLE INJURY, TENDER RT LATERAL ASPECT R/O FX Alejandro Viramontes MD [facility] ORDERABLES documented in this encounter Visit Diagnoses Not on filedocumented in this encounter
--- OUTSIDE RECORDS SUMMARY | 2023-10-19 15:38 | XMS_ITS | Encounter Summary ---
Author Organization [facility] Address [address] [place] [address] Care Team Providers Care Teaching Music Lessons Name Role Phone Nataly Vilchis MD PhD Primary Care Provider Encounter Details Date Type Department Care Team (Late st Contact Info) Description 06/28/2007 Results Only [facility] Adult Primary Care - [address] [address] Nataly Vilchis MD PhD [address] [place] [phone] Social History Tobacco Use Types Packs/Day [...] EDT Hospital Encounter [facility] OR [address] [place], [place] [phone] Walker Pride MD 111 [facility], [address] [place] [phone] 10/22/2023 13:25 EDT - 10/22/2023 17:[address] [facility] OR [address] [place], [place] 725641 Walker Pride MD 111 [facility], [facility], [address] [place] [phone] Left L34 decompression, redo left L45 decompression [[id number] (CPT??)] 11/22/2023 10:00 EDT Post-op Visit [facility] Neurosurgery - [address] [phone] Madiha Hurtado NP 111 [facility], [facility], [address] [place] [phone] Scheduled Procedures Name Priority Associated Diagnoses Date/Ti me LAMINECTOMY, SPINE, LUMBAR, 1 LEVEL, WITH FORAMINOTOMY OR FACETECTOMY Lumbar radiculopathy 10/22/2023 13:25 EDT LAMINECTOMY, SPINE, WITH FACETECTOMY AND FORAMINOTOMY, ADDITIONAL LEVEL FOLLOWING INITIAL LEVEL Lumbar radiculopathy 10/22/2023 13:25 EDT documented as of this encounter Procedures Procedure Name Priority Date/Time Associated Diagnosis Comments CHLAMYDIA/GC AMPLIFIED PROBE Routine 06/28/2007 13:04 EDT HPV DETECTION, HIGH RISK TYPES Routine 06/28/2007 12:18 EDT CYTOPATHOLOGY Routine 06/28/2007 0:00 EDT documented in this encounter Results * CHLAMYDIA/GC AMPLIFIED PROBE (06/28/2007 13:04 EDT) Specimen Description Endocervix [facility] Result No Chlamydia trachomatis or Neisseria gonorrhoeae DNA detected by supervisor mixing mediated amplification. [facility] Report Status Final [id number] [facility] 06/28/2007 13:0 4 EDT 06/28/2007 17:28 EDT Nataly Vilchis MD PhD MICROBIOLOGY - GENERAL ORDERABLES Performing Organization Address [facility] de Phone Number [facility] [address] [place] [address] * HUMAN PAPILLOMA VIRUS DNA TEST (06/28/2007 12:18 EDT) Specimen Description Cervix, ThinPrep vial [facility] Result Negative for HPV types 16, 18, 31, 33, 35, 39, 45, 51, 52, 56, 58, 59, and 68. [facility] Report Status Final [id number] [facility] 06/28/2007 12:1 8 EDT 07/06/2007 8:05 EDT Nataly Vilchis MD PhD MICROBIOLOGY - GENERAL ORDERABLES Performing Organization Address [facility] de Phone Number [facility] [address] [place] [address] * CYTOPATHOLOGY (06/28/2007 0:00 EDT) Pathology Report: CYTOPATHOLOGY REPORT Reports generated via electronic interface contain original data; however they are lacking the format of the original report. Caution should be taken when reading/interpreti ng unformatted reports. Name: ? SARAH LANGE ? Accession #: ? [id number] : ? 1990 (Age: 16) ??F ?Collect Date: ? 06/28/2007 Location: ? [facility] ? Receive Date: ? 06/29/2007 Provider: ?NATALY VILCHIS MD Copy to: ? Specimen/Source: ?ThinPrep Pap Test, Cervix/Endocervix, processed on [employer] ThinPrep Imaging System, with manual evaluation Last Menstrual Period: ? 06/20/07 Hormonal/Contracep tive Status: ? Yes: Ortho Other: ? HPVDX - HPV testing requested regardless of diagnosis on current ThinPrep Pap test. ? SPECIMEN ADEQUACY ? Satisfactory for Evaluation - transformation zone component present GENERAL CATEGORIZATION ? Negative for Intraepithelial Lesion or Malignancy INTERPRETATION ? Fungal organisms present morphologically consistent with Ryann species. ? Document reviewed and electronically signed by: ? ZACH Carmona(ASCP) ? Report Date: ??07/05/2007 10:43 End of Report [facility] 06/28/2007 06/29/2007 Nataly Vilchis MD PhD PATHOLOGY ORDER JORDI [facility] [address] [place] [address] documented in this encounter Visit Diagnoses Not on filedocumented in this encounter Care Teams Teaching Music Lessons Relationship Specialty Start Date End Date Nataly Vilchis MD PhD [address] [place] [phone] PCP - General 08/20/08 11/21/18 documented as of this encounter
--- OUTSIDE RECORDS SUMMARY | 2023-10-19 15:38 | XMS_ITS | Encounter Summary ---
Author Organization [facility] Address [address] [place] [address] Care Team Providers Care Admin Dir Name Role Phone Unavailable Primary Care Provider Unavailabl e Encounter Details Date Type Department Care Team (Late st Contact Info) Description 01/14/2007 15:29 EDT Hospital Encounter [facility] - [facility] [address] [place] [address] Percy Mcgregor MD [address] [place] [phone] Social History Tobacco Use Types Packs/Day [...] Master's degree (e.g., MA, MS, Joanne, MEd, COLD MILL INSPECTOR, LILA) 06/19/2020 Sex and Gender Information Value [...] EDT Hospital Encounter [facility] OR [address] [place] [phone] Walker Pride MD [address] [place] [phone] 10/22/2023 13:25 EDT - 10/22/2023 17:00 EDT Surgery [facility] OR [address] [place] [address] [phone] Walker Pride MD [address] [place] [phone] Left L34 decompression, redo left L45 decompression [[id number] (CPT??)] 11/22/2023 10:00 EDT Post-op Visit [facility] Neurosurgery - [address] [phone] Madiha Hurtado NP [address] [place] [phone] Scheduled Procedures Name Priority Associated Diagnoses Date/Ti me LAMINECTOMY, SPINE, LUMBAR, 1 LEVEL, WITH FORAMINOTOMY OR FACETECTOMY Lumbar radiculopathy 10/22/2023 13:25 EDT LAMINECTOMY, SPINE, WITH FACETECTOMY AND FORAMINOTOMY, ADDITIONAL LEVEL FOLLOWING INITIAL LEVEL Lumbar radiculopathy 10/22/2023 13:25 EDT documented as of this encounter Visit Diagnoses Not on filedocumented in this encounter
--- OUTSIDE RECORDS SUMMARY | 2023-10-19 15:38 | XMS_ITS | Encounter Summary ---
Author Organization [facility] Address [address] [place] [address] Care Team Providers Care Academic Services Coordinator Name Role Phone Unavailable Primary Care Provider Unavailabl e Encounter Details Date Type Department Care Team (Latest Contact Info) Description 06/28/2007 11:24 EDT - 06/28/2007 11:59 EDT Hospital Encounter [facility] - [place] conversion [address] [place], [place] [phone] Miri Vilchis MD PhD [address] [place] [phone] Discharge Disposition: Auto Discharge Social History [...] Info) Description 10/22/2023 13:25 EDT Hospital Encounter [facility] OR [address] [place], [place] 315451 Walker Pride MD 111 [facility], [facility] [address] [place] [phone] 10/22/2023 13:25 EDT - 10/22/2023 17:00 EDT Surgery [facility] OR [address] [place], [place] 848441 Walker Pride MD [address] [place] [address], [facility], [address] [place] [phone] Left L34 decompression, redo left L45 decompression [[id number] (CPT??)] 11/22/2023 10:00 EDT Post-op Visit [facility] Neurosurgery - [address] [phone] Madiha Hurtado NP 111 [facility], [facility], [address] [place] [phone] Scheduled Procedures Name Priority Associated Diagnoses Date/Ti me LAMINECTOMY, SPINE, LUMBAR, 1 LEVEL, WITH FORAMINOTOMY OR FACETECTOMY Lumbar radiculopathy 10/22/2023 13:25 EDT LAMINECTOMY, SPINE, WITH FACETECTOMY AND FORAMINOTOMY, ADDITIONAL LEVEL FOLLOWING INITIAL LEVEL Lumbar radiculopathy 10/22/2023 13:25 EDT documented as of this encounter Visit Diagnoses Not on filedocumented in this encounter
--- OUTSIDE RECORDS SUMMARY | 2023-10-19 15:38 | XMS_ITS | Encounter Summary ---
Author Organization [facility] Address [address] [place] [address] Care Team Providers Care Conveyor Man Name Role Phone Unavailable Primary Care Provider Unavailabl e Encounter Details Date Type Department Care Team (Latest Contact Info) Description 07/01/2005 9:44 EDT - 07/01/2005 11:59 EDT Hospital Encounter [facility] - Other [address] [place] [address] Alejandro Viramontes MD Discharge Disposition: Auto Discharge [...] Info) Description 10/22/2023 13:25 EDT Hospital Encounter [facility] [place] [address] [place], [place] 529[address] Walker Pride MD 111 [facility], Level [address] [place] [phone] 10/22/2023 13:25 EDT - 10/22/2023 17:00 EDT Surgery [facility] OR [address] [place], [place] 800[address] Walker Pride MD 111 [facility], Level [address] [place] [phone] Left L34 decompression, redo left L45 decompression [[id number] (CPT??)] 11/22/2023 10:00 EDT Post-op Visit [facility] Neurosurgery - [facility] [address] [place], [place] [phone] Madiha Hurtado NP 111 [facility], [address] [place] [phone] Scheduled Procedures Name Priority Associated Diagnoses Date/Ti me LAMINECTOMY, SPINE, LUMBAR, 1 LEVEL, WITH FORAMINOTOMY OR FACETECTOMY Lumbar radiculopathy 10/22/2023 13:25 EDT LAMINECTOMY, SPINE, WITH FACETECTOMY AND FORAMINOTOMY, ADDITIONAL LEVEL FOLLOWING INITIAL LEVEL Lumbar radiculopathy 10/22/2023 13:25 EDT documented as of this encounter Procedures Procedure Name Priority Date/Time Associated Diagnosis Comments COMPLETE BLOOD COUNT AND DIFFERENTIAL Routine 07/01/2005 14:10 EDT documented in this encounter Results * (ABNORMAL) HEMAGRAM AND DIFFERENTIAL (07/01/2005 14:10 EDT) WBC 4.48(L) 4.5 - 13.0 K/cmm [facility] RBC 3.81(L) 4.10 - 5.10 M/cmm [facility] Hemoglobin 12.6 12.0 - 16.0 gm/dl [facility] HCT 35.9(L) 36.0 - 46.0 % [facility] MCV 94 78 - 102 fl [facility] MCH 33.1 pg [facility] MCHC 35.0 gm/dl [facility] PLT 225 156 - 312 K/cmm [facility] RDW-CV 11.7 % [facility] % Neutrophils 49.9 % [facility] % Lymphocytes 39.6 % [facility] % Monocytes 9.6 % [facility] % Eosinophils 0.6 % [facility] % Basophils 0.3 % [facility] ABS Neutrophils 2.24 K/cmm [facility] ABS Lymphs 1.77 K/cmm [facility] ABS Monocytes 0.43 K/cmm [facility] ABS Eosinophils 0.03 K/cmm [facility] ABS Basophils 0.01 K/cmm [facility] Type of Diff: Automated [facility] 07/01/2005 14:1 0 EDT 07/01/2005 14:11 EDT Alejandro Viramontes MD PACKAGES & DNA PROBE ORDERABLES Performing Organization Address City/State/[facility] Co de Phone Number [facility] [address] [place] [address] documented in this encounter Visit Diagnoses Not on filedocumented in this encounter
--- OUTSIDE RECORDS SUMMARY | 2023-10-19 15:38 | XMS_ITS | Encounter Summary ---
Author Organization [facility] Address [address] [place] [address] Care Team Providers Care Reservoir Engineer Name Role Phone Unavailable Primary Care Provider Unavailabl e Encounter Details Date Type Department Care Team (Late st Contact Info) Description 10/14/2005 9:00 EDT Hospital Encounter [address] [address] Alejandro Viramontes MD Social History Tobacco Use Types Packs/Day [...] slept in a residential (including now)? No 06/21/2022 Interpersonal Safety Answer [...] degree (e.g., MA, MS, Joanne, MEd, SENIOR GEOTECHNICAL ENGINEER, LILA) 06/19/2020 Sex and Gender Information [...] EDT Hospital Encounter [facility] OR [address] [place] [phone] Walker Pride MD [address] [place] [phone] 10/22/2023 13:25 EDT - 10/22/2023 17:00 EDT Surgery [facility] OR [address] [place] [address] [phone] Walker Pride MD [address] [place] [phone] Left L34 decompression, redo left L45 decompression [[id number] (CPT??)] 11/22/2023 10:00 EDT Post-op Visit [facility] Neurosurgery - [address] [phone] Madiha Hurtado NP [address] [place] [phone] Scheduled Procedures Name Priority Associated Diagnoses Date/Ti me LAMINECTOMY, SPINE, LUMBAR, 1 LEVEL, WITH FORAMINOTOMY OR FACETECTOMY Lumbar radiculopathy 10/22/2023 13:25 EDT LAMINECTOMY, SPINE, WITH FACETECTOMY AND FORAMINOTOMY, ADDITIONAL LEVEL FOLLOWING INITIAL LEVEL Lumbar radiculopathy 10/22/2023 13:25 EDT documented as of this encounter Procedures Procedure Name Priority Date/Time Associated Diagnosis Comments COMPLETE BLOOD COUNT AND DIFFERENTIAL Routine 10/14/2005 9:02 EDT documented in this encounter Results * (ABNORMAL) HEMAGRAM AND DIFFERENTIAL (10/14/2005 9:02 EDT) WBC 4.14(L) 4.6 - 11.2 K/cmm [facility] RBC 4.33 4.10 - 5.10 M/cmm [facility] Hemoglobin 13.7 12.0 - 16.0 gm/dl [facility] HCT 41.2 36.0 - 46.0 % [facility] MCV 95 78 - 102 fl [facility] MCH 31.6 pg [facility] MCHC 33.2 gm/dl [facility] PLT 256 156 - 312 K/cmm [facility] RDW-CV 12.4 % [facility] % Neutrophils 51.4 % [facility] % Lymphocytes 40.0 % [facility] % Monocytes 7.6 % [facility] % Eosinophils 0.5 % [facility] % Basophils 0.5 % [facility] ABS Neutrophils 2.13 K/cmm [facility] ABS Lymphs 1.66 K/cmm [facility] ABS Monocytes 0.32 K/cmm [facility] ABS Eosinophils 0.02 K/cmm [facility] ABS Basophils 0.02 K/cmm [facility] Type of Diff: Automated [facility] 10/14/2005 9:02 EDT 10/14/2005 9:04 EDT Alejandro Viramontes MD PACKAGES & DNA PROBE ORDERABLES [facility] [address] [place] [address] documented in this encounter Visit Diagnoses Not on filedocumented in this encounter
--- OUTSIDE RECORDS SUMMARY | 2023-10-19 15:38 | XMS_ITS | Encounter Summary ---
Author Organization [facility] Address [address] [place] [address] Care Team Providers Care Associate Doctor Name Role Phone Nataly Vilchis MD PhD Primary Care Provider Encounter Details Date Type Department Care Team (Late st Contact Info) Description 06/25/2006 Results Only [facility] Adult Primary Care - [address] [address] Nataly Vilchis MD PhD [address] [place] [phone] Social History Tobacco Use Types Packs/Day [...] Info) Description 10/22/2023 13:25 EDT Hospital Encounter [facility] OR [address] [place], [place] [phone] Walker Pride MD 111 [facility], Level [address] [place] [phone] 10/22/2023 13:25 EDT - 10/22/2023 17:00 EDT Surgery [facility] OR [address] [place], [place] [phone] Walker Pride MD 111 [facility], [facility], Level [address] [place] [phone] Left L34 decompression, redo left L45 decompression [[id number] (CPT??)] 11/22/2023 10:00 EDT Post-op Visit [facility] Neurosurgery - [facility] [address] [place], [place] [phone] Madiha Hurtado NP 111 [facility], [facility], [address] [place] [phone] Scheduled Procedures Name Priority Associated Diagnoses Date/Ti me LAMINECTOMY, SPINE, LUMBAR, 1 LEVEL, WITH FORAMINOTOMY OR FACETECTOMY Lumbar radiculopathy 10/22/2023 13:25 EDT LAMINECTOMY, SPINE, WITH FACETECTOMY AND FORAMINOTOMY, ADDITIONAL LEVEL FOLLOWING INITIAL LEVEL Lumbar radiculopathy 10/22/2023 13:25 EDT documented as of this encounter Procedures Procedure Name Priority Date/Time Associated Diagnosis Comments CYTOPATHOLOGY Routine 06/25/2006 0:00 EDT documented in this encounter Results * CYTOPATHOLOGY (06/25/2006 0:00 EDT) Pathology Report: CYTOPATHOLOGY REPORT Reports generated via electronic interface contain original data; however they are lacking the format of the original report. Caution should be taken when reading/interpreti ng unformatted reports. Name: ? SARAH LANGE ? Accession #: ? [id number] : ? 1990 (Age: 15) ??F ?Collect Date: ? 06/25/2006 Location: ? [facility] ? Receive Date: ? 06/28/2006 Provider: ?NATALY VILCHIS MD Copy to: ? Specimen/Source: ?ThinPrep Pap Test, Cervix/Endocervix, processed on 2C2P ThinPrep Imaging System, with manual evaluation Last Menstrual Period: ? 06/09/06 Other: ? HPVA - HPV testing requested if ASC-US on the current ThinPrep Pap test. ? SPECIMEN ADEQUACY ? Satisfactory for Evaluation - transformation zone component present GENERAL CATEGORIZATION ? Negative for Intraepithelial Lesion or Malignancy ? Document reviewed and electronically signed by: ? Mary Kate Beck, [facility](ASCP) ? Report Date: ??06/30/2006 14:24 End of Report [facility] 06/25/2006 06/28/2006 Nataly Vilchis MD PhD PATHOLOGY ORDER JORDI [facility] [address] [place] [address] documented in this encounter Visit Diagnoses Not on filedocumented in this encounter Care Teams Associate Doctor Relationship Specialty Start Date End Date Nataly Viclhis MD PhD [address] [place] [phone] PCP - General 08/20/08 11/21/18 documented as of this encounter
--- OUTSIDE RECORDS SUMMARY | 2023-10-19 15:38 | XMS_ITS | Encounter Summary ---
Author Organization [facility] Address [address] [place] [address] Care Team Providers Care Assessment Expert Name Role Phone Unavailable Primary Care Provider Unavailabl e Encounter Details Date Type Department Care Team (Latest Contact Info) Description 06/25/2006 9:42 EDT - 06/25/2006 11:59 EDT Hospital Encounter [facility] - [facility] conversion [address] [place], [place] [phone] Miri Vilchis MD PhD [address] [place] [phone] Discharge Disposition: Auto Discharge Social [...] Description 10/22/2023 13:25 EDT Hospital Encounter [facility] OR [address] [place], [place] [address] Walker Pride MD 111 [facility], Level [address] [place] [phone] 10/22/2023 13:25 EDT - 10/22/2023 17:00 EDT Surgery [facility] OR [address] [place], [place] [address]291 Walker Pride MD [address] [place] [address], [facility], Level [address] [place] [phone] Left L34 decompression, redo left L45 decompression [[id number] (CPT??)] 11/22/2023 10:00 EDT Post-op Visit [facility] Neurosurgery - [address] [phone] Madiha Hurtado NP 111 [facility], [facility], Level [address] [place] [phone] Scheduled Procedures Name Priority Associated Diagnoses Date/Ti me LAMINECTOMY, SPINE, LUMBAR, 1 LEVEL, WITH FORAMINOTOMY OR FACETECTOMY Lumbar radiculopathy 10/22/2023 13:25 EDT LAMINECTOMY, SPINE, WITH FACETECTOMY AND FORAMINOTOMY, ADDITIONAL LEVEL FOLLOWING INITIAL LEVEL Lumbar radiculopathy 10/22/2023 13:25 EDT documented as of this encounter Visit Diagnoses Not on filedocumented in this encounter
--- OUTSIDE RECORDS SUMMARY | 2023-10-19 15:38 | XMS_ITS | Encounter Summary ---
Author Organization [facility] Address [address] [place] [address] Care Team Providers Care Nurse Case Management Name Role Phone Unavailable Primary Care Provider Unavailabl e Encounter Details Date Type Department Care Team (Late st Contact Info) Description 09/03/2005 9:01 EDT Hospital Encounter [address] [address] Alejandro Viramontes MD Social History Tobacco Use [...] Master's degree (e.g., MA, MS, Joanne, MEd, MORPHOLOGY TEACHER, LILA) 06/19/2020 Sex and Gender Information [...] Description 10/22/2023 13:25 EDT Hospital Encounter [facility] OR [address] [place] [address] [phone] Walker Pride MD [address] [place] [phone] 10/22/2023 13:25 EDT - 10/22/2023 17:00 EDT Surgery [facility] OR [address] [place] [address] [phone] Walker Pride MD [address] [place] [phone] Left L34 decompression, redo left L45 decompression [[id number] (CPT??)] 11/22/2023 10:00 EDT Post-op Visit [facility] Neurosurgery - [address] [phone] Madiha Hurtado NP [address] [place] [phone] Scheduled Procedures Name Priority Associated Diagnoses Date/Ti me LAMINECTOMY, SPINE, LUMBAR, 1 LEVEL, WITH FORAMINOTOMY OR FACETECTOMY Lumbar radiculopathy 10/22/2023 13:25 EDT LAMINECTOMY, SPINE, WITH FACETECTOMY AND FORAMINOTOMY, ADDITIONAL LEVEL FOLLOWING INITIAL LEVEL Lumbar radiculopathy 10/22/2023 13:25 EDT documented as of this encounter Procedures Procedure Name Priority Date/Time Associated Diagnosis Comments COMPLETE BLOOD COUNT AND DIFFERENTIAL Routine 09/03/2005 9:03 EDT documented in this encounter Results * HEMAGRAM AND DIFFERENTIAL (09/03/2005 9:03 EDT) WBC 5.55 4.6 - 11.2 K/cmm [facility] RBC 4.32 4.10 - 5.10 M/cmm [facility] Hemoglobin 13.8 12.0 - 16.0 gm/dl [facility] HCT 38.6 36.0 - 46.0 % [facility] MCV 89 78 - 102 fl [facility] MCH 31.8 pg [facility] MCHC 35.6 gm/dl [facility] PLT 215 156 - 312 K/cmm [facility] RDW-CV 10.0 % [facility] Comment:Performed at [facility], [place], [place] % Neutrophils 61.6 % [facility] % Lymphocytes 29.0 % [facility] % Monocytes 8.4 % [facility] % Eosinophils 0.4 % [facility] % Basophils 0.6 % [facility] ABS Neutrophils 3.42 K/cmm [facility] ABS Lymphs 1.61 K/cmm [facility] ABS Monocytes 0.47 K/cmm [facility] ABS Eosinophils 0.02 K/cmm [facility] ABS Basophils 0.04 K/cmm [facility] Type of Diff: Automated [facility] 09/03/2005 9:03 EDT 09/03/2005 9:05 EDT Alejandro Viramontes MD PACKAGES & DNA PROBE ORDERABLES [facility] [address] [place] [address] documented in this encounter Visit Diagnoses Not on filedocumented in this encounter
== END 2023-10-19 15:30 | disposition home or self-care (01) ==
PROVIDERS: Visit Provider Nurse Practitioner
DX: Z01.818 Encounter for other preprocedural examination (principal); M54.17 Radiculopathy, lumbosacral region
CPT/HCPCS: 36415; 80053; 85025; 85610

== ENCOUNTER 2024-08-28 00:47 | Outpatient (CLI) | payer OTHER, SELFPAY ==
[2024-08-28 15:53] LABS: Abs Immature Grans 0.02 10^3/uL (0.0-0.06); Absolute Basophil Count 0.02 10^3/uL (0.0-0.2); Absolute Eosinophil Count 0.03 10^3/uL (0.0-0.7); Absolute Monocyte Count 0.51 10^3/uL (0.1-0.8); Absolute Neutrophil Count 4.52 10^3/uL (1.2-6.7); Basophils % 0.3 %; Eosinophils % 0.4 %; HCT 36.4 % (36.0-46.0); HGB 12.7 g/dL (11.2-15.7); Immature Grans % 0.3 %; MCH 32.7 pg (27.0-33.0); MCHC 34.9 % (32.0-36.0); MCV 94 fL (80-95); MPV 9.7 fL (8.0-11.0); Monocytes % 7.5 %; Neutrophils % 66.5 %; Platelet Count 256 10^3/uL (130-400); RBC 3.88 10^6/uL (3.93-5.22); RDW 11.1 % (11.7-14.6); RDW-SD 37.9 fL
[2024-08-28 15:57] LABS: Panorama Kit Sent via Fed Ex
[2024-08-28 16:36] LABS: TSH (W/Ref FT4) 0.98 uIU/mL (0.36-3.74)
[2024-08-29 12:03] LABS: Rubella IgG Ab (UVM) Positive (See Note)
[2024-08-29 12:06] LABS: Varicella IgG Antibody Positive (See Note)
[2024-08-29 16:56] LABS: Hepatitis B Surface Ag Negative (Negative)
[2024-08-29 17:30] LABS: Hepatitis C Ab w Rflx HCV PCR Negative (Negative)
[2024-08-29 17:38] LABS: HIV-1/2 Ag & Ab Screen Negative (Negative)
[2024-08-30 12:33] LABS: Chlamydia Result Negative (Negative); GC Result Negative (Negative)
[2024-08-30 22:49] LABS: Syphilis IgG w/Reflex Nonreactive (Nonreactive)
[2024-08-31 01:17] LABS: Specimen WB Whole Blood
[2024-09-07 10:10] LABS: Result Summary NEGATIVE; Specimen WB Whole Blood
== END 2024-08-28 00:48 | disposition home or self-care (01) ==
LOC: LBO 00:47
PROVIDERS: Visit Provider Advanced Practice Midwife
DX: Z34.91 Encounter for supervision of normal pregnancy, unspecified, first trimester (principal)
CPT/HCPCS: 36415; 81220; 81222; 81329; 86787; 86803; 86850; 86900; 86901; 87340; 87389; 87491; 87591; 84443; 85025; 86762; 86780; 87086

== ENCOUNTER 2024-09-05 03:09 | Outpatient (CLI) | payer OTHER, SELFPAY ==
[2024-09-05 13:38] LABS: Panorama Kit Sent via Fed Ex
== END 2024-09-05 03:10 | disposition home or self-care (01) ==
PROVIDERS: Visit Provider Advanced Practice Midwife
DX: Z34.92 Encounter for supervision of normal pregnancy, unspecified, second trimester
CPT/HCPCS: 36415

== ENCOUNTER 2024-12-05 00:47 | Outpatient (CLI) | payer OTHER, SELFPAY ==
[2024-12-05 10:34] LABS: HCT 35.1 % (36.0-46.0); HGB 12.2 g/dL (11.2-15.7); MCH 32.6 pg (27.0-33.0); MCHC 34.8 % (32.0-36.0); MCV 94 fL (80-95); MPV 9.7 fL (8.0-11.0); Platelet Count 225 10^3/uL (130-400); RBC 3.74 10^6/uL (3.93-5.22); RDW 11.6 % (11.7-14.6); RDW-SD 39.6 fL; WBC 6.95 10^3/uL (4.4-10.8)
[2024-12-05 11:50] LABS: Glucose,1 Hr (Glucola) 93 mg/dL (80-140)
== END 2024-12-05 00:48 | disposition home or self-care (01) ==
LOC: LBO 00:47
PROVIDERS: PCP Nurse Practitioner; Visit Provider Advanced Practice Midwife
DX: Z34.92 Encounter for supervision of normal pregnancy, unspecified, second trimester
CPT/HCPCS: 36415; 82950; 85027

== ENCOUNTER 2024-12-13 17:47 | Outpatient (REF) | payer OTHER, SELFPAY ==
[2024-12-13 14:02] LABS: Glucose Negative (Negative)
[2024-12-13 14:15] LABS: RBC Negative HPF (0-2); WBC 0-2 HPF (0-5)
== END 2024-12-13 17:48 | disposition home or self-care (01) ==
LOC: LBN 17:47
PROVIDERS: PCP Nurse Practitioner; Visit Provider Advanced Practice Midwife
DX: O26.892 Other specified pregnancy related conditions, second trimester (principal); R30.0 Dysuria
CPT/HCPCS: 81003; 81015; 87086

== ENCOUNTER → 2025-01-17 02:02 | Outpatient (CLI) | payer OTHER, SELFPAY ==
--- NOTE | 2025-01-17 12:20 | DI.US_ITS ---
Exam(s) US OB KRISTY WEIGHT EXAM: US OB KRISTY WEIGHT CLINICAL HISTORY: interval growth,. TECHNIQUE: Transabdominal obstetrical ultrasound was performed. COMPARISON: US US OB 2-3 TRIMESTER from 10/16/2024 FINDINGS: There is a single viable intrauterine gestation with cardiac activity identified-153 bpm The fetus is presently in cephalic position . Amniotic fluid: There is a low normal amount of amniotic fluid with an KRISTY of 11.9cm. Placental location: The placenta is posterior grade 1,with no evidence of placenta previa.Distance from tip of placenta to the internal cervical os is [address] this at approximately 35 weeks and 2 days gestational age, implying KAT of February 19, 2025. BPD measures 35 weeks and 2 days HC measures 36 weeks and 0 days AC measures 34 weeks and 5 days FL measures 35 weeks and 0 days Estimated weight is 2576 gm-5 pounds 11 ounces Fetus is at the 67th percentile on the Hadlock scale. IMPRESSION:: Viable 3rd trimester gestation, as described above. DATA REPOSITORY:
== END ==
LOC: DI 02:02
PROVIDERS: PCP Nurse Practitioner; Visit Provider Advanced Practice Midwife
DX: Z34.93 Encounter for supervision of normal pregnancy, unspecified, third trimester
CPT/HCPCS: 76816

== ENCOUNTER 2025-01-30 11:06 | Outpatient (REF) | payer OTHER, SELFPAY | END 2025-01-30 11:07 | disposition home or self-care (01) | LOC: LBN 11:06 | PROVIDERS: PCP Nurse Practitioner; Visit Provider Advanced Practice Midwife | DX: Z34.93 Encounter for supervision of normal pregnancy, unspecified, third trimester (principal); N89.8 Other specified noninflammatory disorders of vagina | CPT/HCPCS: 87081; 87480; 87510; 87660 ==